=== PATIENT | female | born 1950 | race Caucasian/White ===

== ENCOUNTER 2023-10-31 11:32 | Outpatient (AMB) | payer MEDICARE, SELFPAY ==
--- NOTE | 2023-10-31 12:10 | MHC.OFFVISPS ---
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 feel the prozac 5 mg has helped; She reports no side effects. No falls, no gait imbalance. No dizziness. She is able to eat. Sleep is good. No SI or HI. she needs eye surgery which is scheduled for next week; she states she is anxious and nervous about it. She says she thinks she will feel better after it is done; No psychosis. no SI or HI. reports woorrry aviva day but has coping skills to manage. Past Psychiatric History: No IPLOC. anxiety started at age 3, always scared, constant worried thoughts, depression and anxiety for many years; her mother when she was 2 yo and pt had a difficult life with father and step mother intermittently being available- she and sister were frequently in foster care; pt has been in and out of treatment for years -outpatietn tx only . Subjective Subjective Subjective Medication Compliance: Yes Side effects from medications: No Review of Systems Medical Review of Systems: unchanged Review of Systems Review of Systems Yes all other systems are reviewed and are negative Eyes: Reports other (needs eye lid repair) Mental Status Exam Mental Status Exam Patient Appearance: Well Grooomed, Inappropriate and Appropriate Patient Orientation: Person, Place, Time and Situation Level of Consciousness: Awake, Appropriate and Alert Patient Behavior: Appropriate, Cooperative and Good Eye Contact Mood Description: Anxious and Sad Affect Description: Anxious and Sad Patient Cognition Impaired: No Ability to Follow Directions: Good Speech Pattern: Clear and Appropriate Memory Description: Intact Hallucinations: None Delusions: Not Present Thought Process: Intact and Goal Oriented Thought Content: positive for Intact and positive for Goal Oriented Judgement: Good Assessment and Plan Assessment & Plan (1) Major depression in partial remission: Status: Acute Code(s): F32.4 - Major depressive disorder, single episode, in partial remission (2) PTSD (post-traumatic stress disorder): Status: Acute Code(s): F43.10 - Post-traumatic stress disorder, unspecified Plan Continue current medications prozac 5 mg daily Valium to 10 mg TID and may take extra 1/2 tab daily PRN (dilantin reduces bioavailability of valium) remeron 15 mg at HS abilify 5mg in am for depression Consider increase in prozac in future Counseling and coordination of Care Pt. Self Management counseling: Light exposure, Sleep hygiene and General coping skills Medication management counseling: Effectiveness, Side effects, Dosing range, Duration, Drug interaction and Adherence Diagnosis and Prognosis Counseling: Accuracy of diagnosis, Prognosis over time, Impact of diagnosis on life functions, Impact of family relationship, Problematic behaviors secondary to diagnosis and Adequacy of current interventions Details: I spent 30 minutes reviewing the record, seeing the patient and documenting in the medical record. Counseling provided to the patient/caregiver as outlined below. Addressed patient/caregiver concerns regarding current medication regime including effective adherence. Addressed patient/caregiver concerns regarding diagnosis and prognosis including accuracy of diagnosis, prognosis over time, impact of diagnosis. Addressed patient/caregiver concerns regarding impact of recent stressors. PFSH Social History: lives with ; 2 adult daughters- estranged from one Substance History: none Trauma History: foster care as child- multiple homes Coding Level of Care Code Est Pt Level 4 (37607) Diagnoses Major depression in partial remission F32.4 PTSD (post-traumatic stress disorder) F43.10
[2023-10-31 12:11] VITALS: BP 140/72
== END 2023-10-31 12:12 | disposition home or self-care (01) ==
LOC: HO.HOP 11:33
PROVIDERS: PCP Internal Medicine; Visit Provider Clinical Nurse Specialist Psychiatric/Mental Health
DX: F32.4 Major depressive disorder, single episode, in partial remission (principal); F43.11 Post-traumatic stress disorder, acute
CPT/HCPCS: 99214

== ENCOUNTER → 2023-10-31 11:32 | Outpatient (BNVA) | payer MEDICARE, SELFPAY | PROVIDERS: PCP Internal Medicine; Visit Provider Clinical Nurse Specialist Psychiatric/Mental Health | DX: F32.4 Major depressive disorder, single episode, in partial remission (principal); F43.10 Post-traumatic stress disorder, unspecified | CPT/HCPCS: 99212 ==

== ENCOUNTER 2024-01-02 11:06 | Outpatient (AMB) | payer MEDICARE, SELFPAY ==
--- NOTE | 2024-01-02 11:11 | MHC.OFFVISPS ---
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: No Medication List - Last Reconciled 01/02/24 by Angie Neely APRN aripiprazole 5 mg PO DAILY carvedilol 12.5 mg PO BID clonidine HCl 0.1 mg PO BID clopidogrel 75 mg PO DAILY diazepam 10 mg PO TID PRN fluoxetine 5 mg (1/2 x 10 mg) PO DAILY 30 days mirtazapine 22.5 mg (1.5 x 15 mg) PO BEDTIME 30 days phenytoin sodium extended 100 mg PO TID simvastatin 20 mg PO BEDTIME tiotropium bromide (Spiriva with HandiHaler) 1 cap inhalation DAILY HPI- Psychiatric Chief Complaint: depression HPI Narrative: pt reports feeling depressed, low energy, fatigued, anxious and worried; she had cataract surgey 2 months ago and dshe is having trouble with blurry vision; she feels sad missing her sister who 2 years ago. she continues to go dancing 1 time a week and plays cards 2-3 times a week; she appears sedated and low energy; discussed stopping prozac and lowering abilify . she feels mirtazepine works well and there is room to increase if needed for mood. no SI and no HI Past Psychiatric History: No IPLOC. anxiety started at age 3, always scared, constant worried thoughts, depression and anxiety for many years; her mother when she was 2 yo and pt had a difficult life with father and step mother intermittently being available- she and sister were frequently in foster care; pt has been in and out of treatment for years -outpatietn tx only . Subjective Subjective Subjective Medication Compliance: Yes Side effects from medications: No Review of Systems Medical Review of Systems: unchanged Mental Status Exam Mental Status Exam Patient Appearance: Well Grooomed and Appropriate Patient Orientation: Person, Place, Time and Situation Level of Consciousness: Drowsy and Sedated Patient Behavior: Appropriate and Cooperative Mood Description: Sad Affect Description: Constricted and Flat Patient Cognition Impaired: No Ability to Follow Directions: Good Speech Pattern: Soft-Spoken and Delayed Memory Description: Intact Hallucinations: None Delusions: Not Present Thought Content: positive for Intact and positive for Goal Oriented Judgement: Fair Assessment and Plan Assessment & Plan (1) PTSD (post-traumatic stress disorder): Status: Acute Code(s): F43.10 - Post-traumatic stress disorder, unspecified (2) Major depression in partial remission: Status: Acute Code(s): F32.4 - Major depressive disorder, single episode, in partial remission Plan continue mirtazepine 22.5 mg daily at bedtime continue valium 10mg TID (bioavailability low due to dilantin) reduce abilify to 2.5mg daily stop prozac return in 4 weeks Medications: Changed From aripiprazole 5 mg PO DAILY 30 tabs 2RF To aripiprazole 2.5 mg (1/2 x 5 mg) PO DAILY 15 tabs 1RF Refilled aripiprazole 2.5 mg (1/2 x 5 mg) PO DAILY 15 tabs 1RF diazepam 10 mg PO TID PRN 90 tabs 2RF anxiety Discontinued fluoxetine Discontinued Reason: Doctor's Order 5 mg (1/2 x 10 mg) PO DAILY 30 days 15 tabs 2RF Counseling and coordination of Care Pt. Self Management counseling: Exercise, Maintenance-social rhythm, Sleep hygiene, Behavior activation, General coping skills and Greif counseling Details-Self Mgmt counseling: CBT and supportive psychotherapy to reduce distress, facilitate processing grief. Medication management counseling: Effectiveness, Side effects, Dosing range, Duration, Drug interaction and Adherence Diagnosis and Prognosis Counseling: Accuracy of diagnosis, Prognosis over time, Impact of diagnosis on life functions, Impact of family relationship, Problematic behaviors secondary to diagnosis and Adequacy of current interventions Details: I spent 30 minutes reviewing the record, seeing the patient and documenting in the medical record. Counseling provided to the patient/caregiver as outlined below. Addressed patient/caregiver concerns regarding current medication regime including effective adherence. Addressed patient/caregiver concerns regarding diagnosis and prognosis including accuracy of diagnosis, prognosis over time, impact of diagnosis. Addressed patient/caregiver concerns regarding impact of recent stressors. [facility] Social History: lives with ; 2 adult daughters- estranged from one Substance History: none Trauma History: foster care as child- multiple homes Coding Level of Care Code Est Pt Level 4 (68513) Therapy 30m w/E&M (70384) Diagnoses PTSD (post-traumatic stress disorder) F43.10 Major depression in partial remission F32.4 Comment CBT and supportive psychotherapy to reduce distress, facilitate grief.
== END 2024-01-02 11:43 | disposition home or self-care (01) ==
LOC: HO.HOP 11:06
PROVIDERS: PCP Internal Medicine; Visit Provider Clinical Nurse Specialist Psychiatric/Mental Health
DX: F43.10 Post-traumatic stress disorder, unspecified (principal); F32.4 Major depressive disorder, single episode, in partial remission
CPT/HCPCS: 90833; 99214

== ENCOUNTER → 2024-01-02 11:06 | Outpatient (BNVA) | payer MEDICARE, SELFPAY | PROVIDERS: PCP Internal Medicine; Visit Provider Clinical Nurse Specialist Psychiatric/Mental Health | DX: F43.10 Post-traumatic stress disorder, unspecified (principal); F32.4 Major depressive disorder, single episode, in partial remission; Z79.899 Other long term (current) drug therapy | CPT/HCPCS: 99212 ==

== ENCOUNTER 2024-01-30 11:40 | Outpatient (AMB) | payer MEDICARE, SELFPAY ==
--- NOTE | 2024-01-30 11:50 | MHC.OFFVISPS ---
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 she goes back to see surgeon at the end of the month. pt reports sleeping well; she feels better later in the day but feel the abilify might be making her feel worse in am. no SI or HI. Past Psychiatric History: No IPLOC. anxiety started at age 3, always scared, constant worried thoughts, depression and anxiety for many years; her mother when she was 2 yo and pt had a difficult life with father and step mother intermittently being available- she and sister were frequently in foster care; pt has been in and out of treatment for years -outpatietn tx only . Subjective Subjective Subjective Medication Compliance: Yes Side effects from medications: No Review of Systems Medical Review of Systems: unchanged Mental Status Exam Mental Status Exam Patient Appearance: Well Grooomed and Appropriate Patient Orientation: Person, Place, Time and Situation Level of Consciousness: Awake and Appropriate Patient Behavior: Appropriate and Cooperative Mood Description: Calm, Depressed and Sad Affect Description: Calm, Depressed, Flat and Sad Patient Cognition Impaired: No Ability to Follow Directions: Good Speech Pattern: Clear, Appropriate and Soft-Spoken Memory Description: Intact Hallucinations: None Delusions: Not Present Thought Process: Intact Thought Content: positive for Intact and positive for Goal Oriented Judgement: Good Assessment and Plan Assessment & Plan (1) PTSD (post-traumatic stress disorder): Status: Acute Code(s): F43.10 - Post-traumatic stress disorder, unspecified (2) Major depression in partial remission: Status: Acute Qualifiers: Major depression recurrence: recurrent Qualified Code(s): F33.41 - Major depressive disorder, recurrent, in partial remission Code(s): F32.4 - Major depressive disorder, single episode, in partial remission Plan stop aripirazole increase mirtazepine to 30mg daily continue diazepam 10mg tid Medications: New mirtazapine 30 mg PO BEDTIME 30 tabs 2RF Discontinued aripiprazole Discontinued Reason: Doctor's Order 2.5 mg (1/2 x 5 mg) PO DAILY 15 tabs 1RF mirtazapine Discontinued Reason: Doctor's Order 22.5 mg (1.5 x 15 mg) PO BEDTIME 45 tabs 2RF 30 days Counseling and coordination of Care Pt. Self Management counseling: Exercise, Maintenance-social rhythm, Sleep hygiene, General coping skills and Greif counseling Details-Self Mgmt counseling: pt continues to grieve sister who 2 yrs ago from covid Medication management counseling: Effectiveness, Side effects, Dosing range, Duration, Drug interaction and Adherence Diagnosis and Prognosis Counseling: Accuracy of diagnosis, Prognosis over time, Impact of diagnosis on life functions, Impact of family relationship, Problematic behaviors secondary to diagnosis and Adequacy of current interventions Details: I spent 30 minutes reviewing the record, seeing the patient and documenting in the medical record. Counseling provided to the patient/caregiver as outlined below. Addressed patient/caregiver concerns regarding current medication regime including effective adherence. Addressed patient/caregiver concerns regarding diagnosis and prognosis including accuracy of diagnosis, prognosis over time, impact of diagnosis. Addressed patient/caregiver concerns regarding impact of recent stressors. [facility] Social History: lives with ; 2 adult daughters- estranged from one Substance History: none Trauma History: foster care as child- multiple homes Coding Level of Care Code Est Pt Level 4 (35988) Diagnoses PTSD (post-traumatic stress disorder) F43.10 Recurrent major depressive disorder, in partial remission F33.41 Major depression recurrence: recurrent
== END 2024-01-30 12:13 | disposition home or self-care (01) ==
LOC: HO.HOP 11:40
PROVIDERS: PCP Internal Medicine; Visit Provider Clinical Nurse Specialist Psychiatric/Mental Health
DX: F43.10 Post-traumatic stress disorder, unspecified (principal); F33.41 Major depressive disorder, recurrent, in partial remission
CPT/HCPCS: 99214

== ENCOUNTER → 2024-01-30 11:40 | Outpatient (BNVA) | payer MEDICARE, SELFPAY | PROVIDERS: PCP Internal Medicine; Visit Provider Clinical Nurse Specialist Psychiatric/Mental Health | DX: F43.10 Post-traumatic stress disorder, unspecified (principal); F33.41 Major depressive disorder, recurrent, in partial remission | CPT/HCPCS: 99212 ==

== ENCOUNTER 2024-02-29 11:32 | Outpatient (AMB) | payer MEDICARE, SELFPAY ==
--- NOTE | 2024-02-29 11:53 | MHC.OFFVISPS ---
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 Allergies No Known Allergies Allergy (Verified 01/30/24 12:28) Medication List - Last Reconciled 02/29/24 by Angie Neely APRN carvedilol 12.5 mg PO BID cephalexin 500 mg PO QID clonidine HCl 0.1 mg PO BID clopidogrel 75 mg PO DAILY diazepam 10 mg PO TID PRN mirtazapine 30 mg PO BEDTIME neomycin-polymyxin B-dexameth 3.5mg/mL-10,000 unit/mL-0.1 % drps ophthalmic (eye) ondansetron mg PO phenytoin sodium extended 100 mg PO TID simvastatin 20 mg PO BEDTIME tiotropium bromide (Spiriva with HandiHaler) 1 cap inhalation DAILY HPI- Psychiatric Chief Complaint: depression HPI Narrative: pt in ED on Monday night due to constipation; had CT of abdomen which showed constipation; she also has uti; given mg citrate. and nows has diarrhea. she is on ceftin for uti. mood depressed. doesn't feel good on remeron 30mg - felt better on 22.5mg and the abilify. had trouble cutting the abilify in half. no SI or HI Has appt to see PCP tomorrow. Past Psychiatric History: No IPLOC. anxiety started at age 3, always scared, constant worried thoughts, depression and anxiety for many years; her mother when she was 2 yo and pt had a difficult life with father and step mother intermittently being available- she and sister were frequently in foster care; pt has been in and out of treatment for years -outpatietn tx only . Subjective Subjective Subjective Medication Compliance: Yes Side effects from medications: No Review of Systems Medical Review of Systems: unchanged Mental Status Exam Mental Status Exam Patient Appearance: Well Grooomed and Appropriate Patient Orientation: Person, Place, Time and Situation Level of Consciousness: Awake Patient Behavior: Appropriate Mood Description: Flat and Sad Affect Description: Flat and Sad Patient Cognition Impaired: No Ability to Follow Directions: Good Speech Pattern: Clear and Soft-Spoken Hallucinations: None Delusions: Not Present Thought Process: Intact Thought Content: positive for Intact Assessment and Plan Assessment & Plan (1) PTSD (post-traumatic stress disorder): Status: Acute Code(s): F43.10 - Post-traumatic stress disorder, unspecified (2) Major depression in partial remission: Status: Acute Qualifiers: Major depression recurrence: recurrent Qualified Code(s): F33.41 - Major depressive disorder, recurrent, in partial remission Code(s): F32.4 - Major depressive disorder, single episode, in partial remission Plan reduce the remeron to 22.5mg at bedtime restart abilify 2 mg daily continue diazepam consider probiotic daily while on antibiotic. Counseling and coordination of Care Pt. Self Management counseling: Sleep hygiene and General coping skills Medication management counseling: Effectiveness, Side effects, Dosing range, Duration, Drug interaction and Adherence Diagnosis and Prognosis Counseling: Accuracy of diagnosis and Adequacy of current interventions Details: I spent 30 minutes reviewing the record, seeing the patient and documenting in the medical record. Counseling provided to the patient/caregiver as outlined below. Addressed patient/caregiver concerns regarding current medication regime including effective adherence. Addressed patient/caregiver concerns regarding diagnosis and prognosis including accuracy of diagnosis, prognosis over time, impact of diagnosis. Addressed patient/caregiver concerns regarding impact of recent stressors. PFSH Social History: lives with ; 2 adult daughters- estranged from one Substance History: none Trauma History: foster care as child- multiple homes Coding Level of Care Code Est Pt Level 4 (21390) Diagnoses PTSD (post-traumatic stress disorder) F43.10 Recurrent major depressive disorder, in partial remission F33.41 Major depression recurrence: recurrent
== END 2024-02-29 11:55 | disposition home or self-care (01) ==
LOC: HO.HOP 11:32
PROVIDERS: PCP Internal Medicine; Visit Provider Clinical Nurse Specialist Psychiatric/Mental Health
DX: F43.10 Post-traumatic stress disorder, unspecified (principal); F33.41 Major depressive disorder, recurrent, in partial remission
CPT/HCPCS: 99214

== ENCOUNTER → 2024-02-29 11:32 | Outpatient (BNVA) | payer MEDICARE, SELFPAY | PROVIDERS: PCP Internal Medicine; Visit Provider Clinical Nurse Specialist Psychiatric/Mental Health | DX: F43.10 Post-traumatic stress disorder, unspecified (principal); F33.41 Major depressive disorder, recurrent, in partial remission | CPT/HCPCS: 99212 ==

== ENCOUNTER 2024-03-26 15:17 | Outpatient (AMB) | payer MEDICARE, SELFPAY ==
--- NOTE | 2024-03-26 15:37 | A.OFFPSYCH_ITS ---
Intake Intake Visit Reasons: depression Construction Director Required: No Allergies No Known Allergies Allergy (Verified 01/30/24 12:28) Medication List - Last Reconciled 03/26/24 by Angie Neely APRN aripiprazole (Abilify) 2 mg PO DAILY carvedilol 12.5 mg PO BID cephalexin 500 mg PO QID clonidine HCl 0.1 mg PO BID clopidogrel 75 mg PO DAILY diazepam 10 mg PO TID PRN mirtazapine 22.5 mg (1.5 x 15 mg) PO DAILY neomycin-polymyxin B-dexameth 3.5mg/mL-10,000 unit/mL-0.1 % drps ophthalmic (eye) ondansetron mg PO phenytoin sodium extended 100 mg PO TID simvastatin 20 mg PO BEDTIME tiotropium bromide (Spiriva with HandiHaler) 1 cap inhalation DAILY HPI- Psychiatric Chief Complaint: depression HPI Narrative: pt reports much improvement; mood is good; she is less anxious and less depressed; tolerating the remeron 22.5mg and abilify 2 mg daily without side effects; PHQ9=5 and GAD7 = 2. No SI or HI; enjoying activities more; happy; future oriented no SI or HI Past Psychiatric History: No IPLOC. anxiety started at age 3, always scared, constant worried thoughts, depression and anxiety for many years; her mother when she was 2 yo and pt had a difficult life with father and step mother intermittently being available- she and sister were frequently in foster care; pt has been in and out of treatment for years -outpatietn tx only . Subjective Subjective Subjective Medication Compliance: Yes Side effects from medications: No Review of Systems Medical Review of Systems: unchanged Mental Status Exam Mental Status Exam Patient Appearance: Well Grooomed and Appropriate Patient Orientation: Person, Place, Time and Situation Level of Consciousness: Awake and Appropriate Patient Behavior: Appropriate Mood Description: Happy Affect Description: Happy Ability to Follow Directions: Good Speech Pattern: Clear Memory Description: Intact Hallucinations: None Delusions: Not Present Thought Process: Intact Thought Content: positive for Intact Judgement: Good Assessment and Plan Assessment & Plan (1) PTSD (post-traumatic stress disorder): Status: Acute Code(s): F43.10 - Post-traumatic stress disorder, unspecified (2) Major depression in partial remission: Status: Acute Qualifiers: Major depression recurrence: recurrent Qualified Code(s): F33.41 - Major depressive disorder, recurrent, in partial remission Code(s): F32.4 - Major depressive disorder, single episode, in partial remission Plan continue current medications return in 3 months Medications: Refilled aripiprazole (Abilify) 2 mg PO DAILY 30 tabs 2RF mirtazapine 22.5 mg (1.5 x 15 mg) PO DAILY 45 tabs 2RF Counseling and coordination of Care Pt. Self Management counseling: Maintenance-social rhythm, Mod caffeine/ETOH intake and General coping skills Medication management counseling: Effectiveness, Side effects, Dosing range, Duration, Drug interaction and Adherence Diagnosis and Prognosis Counseling: Accuracy of diagnosis, Prognosis over time, Impact of diagnosis on life functions, Impact of family relationship and Adeq uacy of current interventions Details: I spent 25 minutes reviewing the record, seeing the patient and documenting in the medical record. Counseling provided to the patient/caregiver as outlined below. Addressed patient/caregiver concerns regarding current medication regime including effective adherence. Addressed patient/caregiver concerns regarding diagnosis and prognosis including accuracy of diagnosis, prognosis over time, impact of diagnosis. Addressed patient/caregiver concerns regarding impact of recent stressors. [facility] Social History: lives with ; 2 adult daughters- estranged from one Substance History: none Trauma History: foster care as child- multiple homes Coding Level of Care Code Est Pt Level 4 (99045) Diagnoses PTSD (post-traumatic stress disorder) F43.10 Recurrent major depressive disorder, in partial remission F33.41 Major depression recurrence: recurrent
== END 2024-03-26 15:45 | disposition home or self-care (01) ==
LOC: HO.HOP 15:17
PROVIDERS: PCP Internal Medicine; Visit Provider Clinical Nurse Specialist Psychiatric/Mental Health
DX: F43.10 Post-traumatic stress disorder, unspecified (principal); F33.41 Major depressive disorder, recurrent, in partial remission
CPT/HCPCS: 99214

== ENCOUNTER → 2024-03-26 15:17 | Outpatient (BNVA) | payer MEDICARE, SELFPAY | PROVIDERS: PCP Internal Medicine; Visit Provider Clinical Nurse Specialist Psychiatric/Mental Health | DX: F43.10 Post-traumatic stress disorder, unspecified (principal); F33.41 Major depressive disorder, recurrent, in partial remission | CPT/HCPCS: 99212 ==

== ENCOUNTER 2024-06-25 13:27 | Outpatient (AMB) | payer MEDICARE, SELFPAY ==
--- NOTE | 2024-06-25 13:03 | MHC.OFFVISPS ---
Intake Intake Visit Reasons: depression Allergies No Known Allergies Allergy (Verified 01/30/24 12:28) Medication List - Last Reconciled 06/25/24 by Angie Neely APRN aripiprazole (Abilify) 2 mg PO DAILY carvedilol 12.5 mg PO BID cephalexin 500 mg PO QID clonidine HCl 0.1 mg PO BID clopidogrel 75 mg PO DAILY diazepam 10 mg PO TID PRN mirtazapine 22.5 mg (1.5 x 15 mg) PO DAILY neomycin-polymyxin B-dexameth 3.5mg/mL-10,000 unit/mL-0.1 % drps ophthalmic (eye) ondansetron mg PO phenytoin sodium extended 100 mg PO TID simvastatin 20 mg PO BEDTIME tiotropium bromide (Spiriva with HandiHaler) 1 cap inhalation DAILY HPI- Psychiatric Chief Complaint: depression HPI Narrative: depression worsened; many stressors: rent going up 200+ dollars; pt on oxygen due to COPD and has a nodule on her lungs; pt very worried; easily tearful. anxious and feeling helpless and hopeless. she and are trying to access senior help but have been told long wait lists. Past Psychiatric History: No IPLOC. anxiety started at age 3, always scared, constant worried thoughts, depression and anxiety for many years; her mother when she was 2 yo and pt had a difficult life with father and step mother intermittently being available- she and sister were frequently in foster care; pt has been in and out of treatment for years -outpatietn tx only . Subjective Subjective Subjective Medication Compliance: Yes Side effects from medications: No Review of Systems Medical Review of Systems: unchanged Mental Status Exam Mental Status Exam Patient Orientation: Person, Place, Time and Situation Level of Consciousness: Awake Patient Behavior: Appropriate Mood Description: Anxious and Sad Patient Cognition Impaired: No Ability to Follow Directions: Good Speech Pattern: Clear and Perseverating Memory Description: Intact Hallucinations: None Delusions: Not Present Thought Process: Rumination Thought Content: positive for Preoccupation Judgement: Fair Telehealth Telehealth Telehealth Platform: Telephone Location of provider rendering services: practice address Location of patient: address on file Patient Identification confirmed using: Name, : Yes Telehealth method: voice only Patient verbally consented to treatment: Yes Patient verbally consented to billing insurance company: Yes Patient informed of any privacy concerns related to visit: Yes Minutes spent on Phone/Video with Pt.: 20 Assessment and Plan Assessment & Plan (1) PTSD (post-traumatic stress disorder): Status: Acute Code(s): F43.10 - Post-traumatic stress disorder, unspecified (2) Major depressive disorder, recurrent episode, moderate with anxious distress: Status: Acute Code(s): F33.1 - Major depressive disorder, recurrent, moderate Plan increase abilify from 2 mg to 5 mg for depression and ruminating Medications: New aripiprazole (Abilify) 5 mg PO DAILY 90 tabs 1RF Counseling and coordination of Care Pt. Self Management counseling: Maintenance-social rhythm, Mod caffeine/ETOH intake, Sleep hygiene, Behavior activation, General coping skills and Problem solving Medication management counseling: Effectiveness, Side effects, Dosing range, Duration, Drug interaction and Adherence Diagnosis and Prognosis Counseling: Accuracy of diagnosis, Prognosis over time, Impact of diagnosis on life functions, Impact of family relationship, Problematic behaviors secondary to diagnosis and Adequacy of current interventions Details: I spent 25 minutes reviewing the record, seeing the patient and documenting in the medical record. Counseling provided to the patient/caregiver as outlined below. Addressed patient/caregiver concerns regarding current medication regime including effective adherence. Addressed patient/caregiver concerns regarding diagnosis and prognosis including accuracy of diagnosis, prognosis over time, impact of diagnosis. Addressed patient/caregiver concerns regarding impact of recent stressors. PFSH Social History: lives with ; 2 adult daughters- estranged from one Substance History: none Trauma History: foster care as child- multiple homes Coding Level of Care Code Tele Est Pt Level 4 (89395) Diagnoses PTSD (post-traumatic stress disorder) F43.10 Major depressive disorder, recurrent episode, moderate with anxious distress F33.1
== END 2024-06-25 13:28 | disposition home or self-care (01) ==
LOC: HO.HOP 13:27
PROVIDERS: PCP Internal Medicine; Visit Provider Clinical Nurse Specialist Psychiatric/Mental Health
DX: F33.1 Major depressive disorder, recurrent, moderate (principal); F43.11 Post-traumatic stress disorder, acute
CPT/HCPCS: 98967

== ENCOUNTER 2024-07-11 11:13 | Outpatient (AMB) | payer MEDICARE, SELFPAY ==
--- NOTE | 2024-07-11 10:38 | A.OFFPSYCH_ITS ---
Intake Intake Visit Reasons: depression Science [employer] Display Builder Required: No Allergies No Known Allergies Allergy (Verified 01/30/24 12:28) Medication List - Last Reconciled 07/11/24 by Angie Neely APRN aripiprazole (Abilify) 5 mg PO DAILY carvedilol 12.5 mg PO BID clonidine HCl 0.1 mg PO BID clopidogrel 75 mg PO DAILY diazepam 10 mg PO TID PRN mirtazapine 22.5 mg (1.5 x 15 mg) PO DAILY neomycin-polymyxin B-dexameth 3.5mg/mL-10,000 unit/mL-0.1 % drps ophthalmic (eye) ondansetron mg PO phenytoin sodium extended 100 mg PO TID simvastatin 20 mg PO BEDTIME tiotropium bromide (Spiriva with HandiHaler) 1 cap inhalation DAILY HPI- Psychiatric Chief Complaint: depression HPI Narrative: pt struggling with anxiety and depression; she is struggling with medical issues. she is fearful; she can't dance right now and that is one of her coping skills. no SI or HI. she is playing cards with and friends 3 times a week; she is able to enjoy this. she is lonely; she is frustrated with medical issues. Past Psychiatric History: No IPLOC. anxiety started at age 3, always scared, constant worried thoughts, depression and anxiety for many years; her mother when she was 2 yo and pt had a difficult life with father and step mother intermittently being available- she and sister were frequently in foster care; pt has been in and out of treatment for years -outpatietn tx only . Subjective Subjective Subjective Medication Compliance: Yes Side effects from medications: No Review of Systems Medical Review of Systems: unchanged Mental Status Exam Mental Status Exam Patient Orientation: Person, Place, Time and Situation Level of Consciousness: Appropriate Patient Behavior: Appropriate, Anxious and Crying Mood Description: Anxious and Sad Affect Description: Anxious and Sad Patient Cognition Impaired: No Ability to Follow Directions: Good Speech Pattern: Clear Memory Description: Intact Hallucinations: None Delusions: Not Present Thought Process: Rumination Thought Content: positive for Preoccupation Judgement: Fair Telehealth Telehealth Telehealth Platform: Telephone Location of provider rendering services: practice address Location of patient: address on file Patient Identification confirmed using: Name, : No Telehealth method: voice only Patient verbally consented to treatment: Yes Patient verbally consented to billing insurance company: Yes Patient informed of any privacy concerns related to visit: Yes Minutes spent on Phone/Video with Pt.: 30 Assessment and Plan Assessment & Plan (1) Major depressive disorder, recurrent episode, moderate with anxious distress: Status: Acute Code(s): F33.1 - Major depressive disorder, recurrent, moderate (2) PTSD (post-traumatic stress disorder): Status: Acute Code(s): F43.10 - Post-traumatic stress disorder, unspecified Plan continue medications add trintellix 5mg daily Counseling and coordination of Care Medication management counseling: Effectiveness, Side effects, Dosing range, Duration, Drug interaction and Adherence Diagnosis and Prognosis Counseling: Accuracy of diagnosis, Prognosis over time, Impact of diagnosis on life functions, Impact of family relationship, Problematic behaviors secondary to diagnosis and Adequacy of current interventions Details: I spent [] minutes reviewing the record, seeing the patient and documenting in the medical record. Counseling provided to the patient/caregiver as outlined below. Addressed patient/caregiver concerns regarding current medication regime including effective adherence. Addressed patient/caregiver concerns regarding diagnosis and prognosis including accuracy of diagnosis, prognosis over time, impact of diagnosis. Addressed patient/caregiver concerns regarding impact of recent stressors. PFSH Social History: lives with ; 2 adult daughters- estranged from one Substance History: none Trauma History: foster care as child- multiple homes Coding Level of Care Code Tele Est Pt Level 4 (60590) Diagnoses Major depressive disorder, recurrent episode, moderate with anxious distress F33.1 PTSD (post-traumatic stress disorder) F43.10
== END 2024-07-11 11:14 | disposition home or self-care (01) ==
LOC: HO.HOP 11:13
PROVIDERS: PCP Internal Medicine; Visit Provider Clinical Nurse Specialist Psychiatric/Mental Health
DX: F33.1 Major depressive disorder, recurrent, moderate (principal); F43.11 Post-traumatic stress disorder, acute
CPT/HCPCS: 99214

== ENCOUNTER → 2024-07-11 11:13 | Outpatient (BNVA) | payer MEDICARE, SELFPAY | PROVIDERS: PCP Internal Medicine; Visit Provider Clinical Nurse Specialist Psychiatric/Mental Health | DX: F43.10 Post-traumatic stress disorder, unspecified (principal); F33.1 Major depressive disorder, recurrent, moderate ==

== ENCOUNTER 2024-07-26 11:42 | Outpatient (AMB) | payer MEDICARE, SELFPAY ==
--- NOTE | 2024-07-26 10:49 | MHC.OFFVISPS ---
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: No Allergies No Known Allergies Allergy (Verified 01/30/24 12:28) Medication List - Last Reconciled 07/26/24 by Angie Neely APRN aripiprazole (Abilify) 5 mg PO DAILY carvedilol 12.5 mg PO BID clonidine HCl 0.1 mg PO BID clopidogrel 75 mg PO DAILY diazepam 10 mg PO TID PRN mirtazapine 22.5 mg (1.5 x 15 mg) PO DAILY neomycin-polymyxin B-dexameth 3.5mg/mL-10,000 unit/mL-0.1 % drps ophthalmic (eye) ondansetron mg PO phenytoin sodium extended 100 mg PO TID simvastatin 20 mg PO BEDTIME tiotropium bromide (Spiriva with HandiHaler) 1 cap inhalation DAILY HPI- Psychiatric Chief Complaint: depression HPI Narrative: pt depressed and anxious; pt feels abilify not helping her depression; she does not want to stop it because it helps worry and anxiety. pt playing cards 3 times a week. not able go back to dancing yet due to o2 tank too heavy; she had breathing test done but results pending; discussed trintellix response in past. pt agree dto retrial of trintellix Past Psychiatric History: No IPLOC. anxiety started at age 3, always scared, constant worried thoughts, depression and anxiety for many years; her mother when she was 2 yo and pt had a difficult life with father and step mother intermittently being available- she and sister were frequently in foster care; pt has been in and out of treatment for years -outpatietn tx only . Subjective Subjective Subjective Medication Compliance: Yes Side effects from medications: No Review of Systems Medical Review of Systems: unchanged Mental Status Exam Mental Status Exam Patient Appearance: Well Grooomed and Appropriate Patient Orientation: Person, Place, Time and Situation Level of Consciousness: Awake, Appropriate and Alert Patient Behavior: Appropriate and Cooperative Mood Description: Calm and Appropriate Affect Description: Calm and Appropriate Patient Cognition Impaired: No Ability to Follow Directions: Good Speech Pattern: Clear and Appropriate Memory Description: Intact Hallucinations: None Delusions: Not Present Thought Process: Intact Thought Content: positive for Intact and positive for Goal Oriented Judgement: Good Telehealth Telehealth Telehealth Platform: Telephone Location of provider rendering services: practice address Location of patient: address on file Patient Identification confirmed using: Name, : Yes Telehealth method: voice only Patient verbally consented to treatment: Yes Patient verbally consented to billing insurance company: Yes Patient informed of any privacy concerns related to visit: Yes Minutes spent on Phone/Video with Pt.: 30 Assessment and Plan Assessment & Plan (1) Major depressive disorder, recurrent episode, moderate with anxious distress: Status: Acute Code(s): F33.1 - Major depressive disorder, recurrent, moderate (2) PTSD (post-traumatic stress disorder): Status: Acute Code(s): F43.10 - Post-traumatic stress disorder, unspecified Plan add trintellix 5mg daily continue remeron continue abilify Medications: New vortioxetine (Trintellix) 5 mg PO DAILY 30 tabs 2RF Counseling and coordination of Care Pt. Self Management counseling: Maintenance-social rhythm and General coping skills Medication management counseling: Effectiveness, Side effects, Dosing range, Duration, Drug interaction and Adherence Diagnosis and Prognosis Counseling: Accuracy of diagnosis, Prognosis over time, Impact of diagnosis on life functions, Impact of family relationship, Problematic behaviors secondary to diagnosis and Adequacy of current interventions Details: I spent 35 minutes reviewing the record, seeing the patient and documenting in the medical record. Counseling provided to the patient/caregiver as outlined below. Addressed patient/caregiver concerns regarding current medication regime including effective adherence. Addressed patient/caregiver concerns regarding diagnosis and prognosis including accuracy of diagnosis, prognosis over time, impact of diagnosis. Addressed patient/caregiver concerns regarding impact of recent stressors. PFSH Social History: lives with ; 2 adult daughters- estranged from one Substance History: none Trauma History: foster care as child- multiple homes Coding Level of Care Code Tele Est Pt Level 4 (07834) Diagnoses Major depressive disorder, recurrent episode, moderate with anxious distress F33.1 PTSD (post-traumatic stress disorder) F43.10
--- OUTSIDE RECORDS SUMMARY | 2024-07-31 08:02 | XMS_ITS ---
Author Name [facility] Organization Unknown History of Medication Use Medication Directions Dispensed Refills Start Date End Date Stat us ARIPiprazole (ABILIFY) 5 MG tablet Take 5 mg by mouth every morning. 03/02/2023 active diazepam (VALIUM) 10 MG tablet TAKE ONE TABLET BY MOUTH THREE TIMES DAILY NEEDED FOR ANXIETY OR PANIC 03/02/2023 active ipratropium-albute rol (DUONEB) 0.5-2.5 mg/3 mL nebulizer solution 3 mL 3 mL, Nebulization, Once, On Mon02/28/23 at 1600, For 1 doseAlbuterol expressed in base strength. Albuterol sulfate 3 mg = albuterol (base) 2.5 mg. 03/02/2023 completed albuterol (ProAir HFA) 108 (90 Base) MCG/ACT inhaler Inhale 2 puffs. 03/02/2023 acti ve Spiriva HandiHaler 18 MCG inhalation capsule USE 1 CAPSULE FOR INHALATION ONCE A DAY DO NOT SWALLOW CAPSULE 03/02/2023 active levoFLOXacin (LEVAQUIN) 750 MG tablet Take 1 tablet (750 mg total) by mouth daily. 03/02/2023 active predniSONE (DELTASONE) 20 MG tablet Take 2 tablets (40 mg total) by mouth daily. 03/02/2023 active simvastatin (ZOCOR) 20 MG tablet Take 20 mg by mouth nightly. 03/02/2023 active carvedilol (COREG) 12.5 MG tablet Take 12.5 mg by mouth 2 (two) times a day with meals. 03/02/2023 active clopidogrel (PLAVIX) 75 MG tablet Take 75 mg by mouth daily. 03/02/2023 active cloNIDine (CATAPRES) 0.1 MG tablet Take 0.1 mg by mouth 2 (two) times a day. 03/02/2023 active Problems Problem Status Onset Date Problem Type Date of Resoluti on Source COPD with acute exacerbation active 2023-02-28 [facility]
== END 2024-07-26 11:43 | disposition home or self-care (01) ==
LOC: HO.HOP 11:42
PROVIDERS: PCP Internal Medicine; Visit Provider Clinical Nurse Specialist Psychiatric/Mental Health
DX: F33.1 Major depressive disorder, recurrent, moderate (principal); F43.11 Post-traumatic stress disorder, acute
CPT/HCPCS: 99214

== ENCOUNTER 2024-08-16 12:17 | Outpatient (AMB) | payer MEDICARE, SELFPAY ==
--- NOTE | 2024-08-16 12:14 | MHC.OFFVISPS ---
Intake Intake Visit Reasons: depression Resident Director Required: No Allergies No Known Allergies Allergy (Verified 01/30/24 12:28) Medication List - Last Reconciled 08/16/24 by Angie Neely APRN aripiprazole (Abilify) 5 mg PO DAILY carvedilol 12.5 mg PO BID clonidine HCl 0.1 mg PO BID clopidogrel 75 mg PO DAILY diazepam 10 mg PO TID PRN mirtazapine 22.5 mg (1.5 x 15 mg) PO DAILY neomycin-polymyxin B-dexameth 3.5mg/mL-10,000 unit/mL-0.1 % drps ophthalmic (eye) ondansetron mg PO phenytoin sodium extended 100 mg PO TID simvastatin 20 mg PO BEDTIME tiotropium bromide (Spiriva with HandiHaler) 1 cap inhalation DAILY vortioxetine (Trintellix) 5 mg PO DAILY HPI- Psychiatric Chief Complaint: depression HPI Narrative: pt reports some improvement. she is still very sad as this is the anniversary od her sister's ;; she was very close to her sister and saw her almost every day until she ; pt reports she is staying busy and spending time with others to cope; her breathing is improving. sleep and appetite intact no SI or HI. Past Psychiatric History: No IPLOC. anxiety started at age 3, always scared, constant worried thoughts, depression and anxiety for many years; her mother when she was 2 yo and pt had a difficult life with father and step mother intermittently being available- she and sister were frequently in foster care; pt has been in and out of treatment for years -outpatietn tx only . Subjective Subjective Subjective Medication Compliance: Yes Side effects from medications: No Review of Systems Medical Review of Systems: unchanged Mental Status Exam Mental Status Exam Patient Orientation: Person, Place, Time and Situation Level of Consciousness: Awake and Appropriate Patient Behavior: Appropriate and Talkative Mood Description: Sad Patient Cognition Impaired: No Ability to Follow Directions: Good Speech Pattern: Clear, Appropriate and Coherent Memory Description: Intact Hallucinations: None Delusions: Not Present Thought Process: Intact and Goal Oriented Thought Content: positive for Intact and positive for Goal Oriented Judgement: Good Telehealth Telehealth Telehealth Platform: Telephone Location of provider rendering services: practice address Location of patient: address on file Patient Identification confirmed using: Name, : Yes Telehealth method: voice only Patient verbally consented to treatment: Yes Patient verbally consented to billing insurance company: Yes Patient informed of any privacy concerns related to visit: Yes Minutes spent on Phone/Video with Pt.: 20 Assessment and Plan Assessment & Plan (1) Major depressive disorder, recurrent episode, moderate with anxious distress: Status: Acute Code(s): F33.1 - Major depressive disorder, recurrent, moderate (2) PTSD (post-traumatic stress disorder): Status: Acute Code(s): F43.10 - Post-traumatic stress disorder, unspecified Plan continue medications as per below no changes retrun in 4-6 weeks Medications: Refilled aripiprazole (Abilify) 5 mg PO DAILY 90 tabs 1RF diazepam 10 mg PO TID PRN 90 tabs 2RF anxiety mirtazapine 22.5 mg (1.5 x 15 mg) PO DAILY 45 tabs 2RF vortioxetine (Trintellix) 5 mg PO DAILY 30 tabs 2RF Counseling and coordination of Care Pt. Self Management counseling: Maintenance-social rhythm, Mod caffeine/ETOH intake, Sleep hygiene, Behavior activation, Greif counseling and Problem solving Medication management counseling: Effectiveness, Side effects, Dosing range, Duration, Drug interaction and Adherence Diagnosis and Prognosis Counseling: Accuracy of diagnosis, Prognosis over time, Impact of diagnosis on life functions and Adequacy of current interventions Details: I spent 30 minutes reviewing the record, seeing the patient and documenting in the medical record. Counseling provided to the patient/caregiver as outlined below. Addressed patient/caregiver concerns regarding current medication regime including effective adherence. Addressed patient/caregiver concerns regarding diagnosis and prognosis including accuracy of diagnosis, prognosis over time, impact of diagnosis. Addressed patient/caregiver concerns regarding impact of recent stressors. PFSH Social History: lives with ; 2 adult daughters- estranged from one Substance History: none Trauma History: foster care as child- multiple homes Coding Level of Care Code Tele Est Pt Level 4 (79297) Diagnoses Major depressive disorder, recurrent episode, moderate with anxious distress F33.1 PTSD (post-traumatic stress disorder) F43.10
== END 2024-08-16 12:48 | disposition home or self-care (01) ==
LOC: HO.HOP 12:17
PROVIDERS: PCP Internal Medicine; Visit Provider Clinical Nurse Specialist Psychiatric/Mental Health
DX: F33.1 Major depressive disorder, recurrent, moderate (principal); F43.11 Post-traumatic stress disorder, acute
CPT/HCPCS: 99214

== ENCOUNTER → 2024-08-16 12:17 | Outpatient (BNVA) | payer MEDICARE, SELFPAY | PROVIDERS: PCP Internal Medicine; Visit Provider Clinical Nurse Specialist Psychiatric/Mental Health | DX: F43.10 Post-traumatic stress disorder, unspecified (principal); F33.1 Major depressive disorder, recurrent, moderate ==

== ENCOUNTER 2024-10-15 15:24 | Outpatient (AMB) | payer MEDICARE, SELFPAY ==
--- NOTE | 2024-10-15 15:05 | A.OFFPSYCH_ITS ---
Intake Intake Visit Reasons: depression Educational Administration Teacher Required: No Allergies No Known Allergies Allergy (Verified 01/30/24 12:28) Medication List - Last Reconciled 10/15/24 by Angie Neely APRN aripiprazole (Abilify) 5 mg PO DAILY carvedilol 12.5 mg PO BID clonidine HCl 0.1 mg PO BID clopidogrel 75 mg PO DAILY diazepam 10 mg PO TID PRN mirtazapine 22.5 mg (1.5 x 15 mg) PO DAILY neomycin-polymyxin B-dexameth 3.5mg/mL-10,000 unit/mL-0.1 % drps ophthalmic (eye) ondansetron mg PO phenytoin sodium extended 100 mg PO TID simvastatin 20 mg PO BEDTIME tiotropium bromide (Spiriva with HandiHaler) 1 cap inhalation DAILY vortioxetine (Trintellix) 5 mg PO DAILY HPI- Psychiatric Chief Complaint: depression HPI Narrative: pt learned she has lung cancer; she is very anxious. she is scared of future; has good support from ; plays cards with peers 3 times a week; eating well; sleeping well; younger daughter very supportive; she misses her older daughter who is not in contact with her right now- pt has reached and is hoping to talk with her soon. no SI or HI. Past Psychiatric History: No IPLOC. anxiety started at age 3, always scared, constant worried thoughts, depression and anxiety for many years; her mother when she was 2 yo and pt had a difficult life with father and step mother intermittently being available- she and sister were frequently in foster care; pt has been in and out of treatment for years -outpatietn tx only . Subjective Subjective Subjective Medication Compliance: Yes Side effects from medications: No Review of Systems Medical Review of Systems: unchanged Mental Status Exam Mental Status Exam Patient Appearance: Well Grooomed and Appropriate Patient Orientation: Person, Place, Time and Situation Level of Consciousness: Awake, Appropriate and Alert Patient Behavior: Appropriate and Cooperative Mood Description: Anxious Affect Description: Anxious Patient Cognition Impaired: No Ability to Follow Directions: Good Speech Pattern: Clear and Appropriate Memory Description: Intact Hallucinations: None Delusions: Not Present Thought Process: Intact and Goal Oriented Thought Content: positive for Intact and positive for Goal Oriented Judgement: Fair Telehealth Telehealth Telehealth Platform: Telephone Location of provider rendering services: practice address Location of patient: address on file Patient Identification confirmed using: Name, : Yes Telehealth method: voice only Patient verbally consented to treatment: Yes Patient verbally consented to billing insurance company: Yes Patient informed of any privacy concerns related to visit: Yes Minutes spent on Phone/Video with Pt.: 30 Assessment and Plan Assessment & Plan (1) Major depressive disorder, recurrent episode, moderate with anxious distress: Status: Acute Code(s): F33.1 - Major depressive disorder, recurrent, moderate (2) PTSD (post-traumatic stress disorder): Status: Acute Code(s): F43.10 - Post-traumatic stress disorder, unspecified Plan renew meds return in 1 month Medications: Refilled mirtazapine 22.5 mg (1.5 x 15 mg) PO DAILY 45 tabs 2RF vortioxetine (Trintellix) 5 mg PO DAILY 30 tabs 2RF aripiprazole (Abilify) 5 mg PO DAILY 90 tabs 1RF diazepam 10 mg PO TID PRN 90 tabs 2RF anxiety Counseling and coordination of Care Pt. Self Management counseling: Maintenance-social rhythm, Sleep hygiene, General coping skills and Problem solving Medication management counseling: Effectiveness, Side effects, Dosing range, Duration, Drug interaction and Adherence Diagnosis and Prognosis Counseling: Accuracy of diagnosis, Prognosis over time, Impact of diagnosis on life functions, Impact of family relationship, Problematic behaviors secondary to diagnosis and Adequacy of current interventions Details: I spent 35 minutes reviewing the record, seeing the patient and documenting in the medical record. Counseling provided to the patient/caregiver as outlined below. Addressed patient/caregiver concerns regarding current medication regime including effective adherence. Addressed patient/caregiver concerns regarding diagnosis and prognosis including accuracy of diagnosis, prognosis over time, impact of diagnosis. Addressed patient/caregiver concerns regarding impact of recent stressors. [facility] Social History: lives with ; 2 adult daughters- estranged from one Substance History: none Trauma History: foster care as child- multiple homes Coding Level of Care Code Tele Est Pt Level 4 (99221) Diagnoses Major depressive disorder, recurrent episode, moderate with anxious distress F33.1 PTSD (post-traumatic stress disorder) F43.10
--- OUTSIDE RECORDS SUMMARY | 2024-10-15 19:10 | XMS_ITS | Encounter Summary ---
Author Organization [facility] Address [address] [place] [address] Care Team Providers Care Wind Tunnel Engineer Name Role Phone Will Monroe MD Primary Care Provider [phone] Reason for Referral * Imaging (Routine) - Pending Review Specialty Diagnoses / Procedures Referred By Contac t Referred To Contact Radiology Diagnoses Pulmonary nodule Hilar lymphadenopathy Procedures MR Brain wo and w Contrast Tunde Trejo MD [address] [address] Phone: tel: fax: [address] [address] Phone: tel: Referral ID Status Reason Start Date Expiration Date V isits Requested Visits Authorized [id number] Pending Review 10/07/2024 10/07/2025 1 1 Reason for Visit * Imaging (Routine) - Pending Review Specialty Diagnoses / Procedures Referred By Contac t Referred To Contact Radiology Diagnoses Pulmonary nodule Hilar lymphadenopathy Procedures MR Brain wo and w Contrast Tunde Trejo MD [address] [address] Phone: tel: fax: [address] [address] Phone: tel: Referral ID Status Reason Start Date Expiration Date V isits Requested Visits Authorized [id number] Pending Review 10/07/2024 10/07/2025 1 1 Encounter Details Date Type Department Care Team (Latest Contact Info) Description 10/11/2024 10:57 AM EST - 10/11/2024 11:59 PM EST Hospital Encounter [facility] MRI [address] [place] [address] Pulmonary nodule; Hilar lymphadenopathy Discharge Disposition: Home or Self Care Social History Tobacco Use Types Packs/Day Years Used Date Smoking Tobacco: Former Smokeless Tobacco: Never Alcohol Use Standard Drinks/Week Comments No 0 (1 standard drink = 0.6 oz pur e alcohol) Comments Unknown Sex and Gender Information Value Date Recorded Sex Assigned at Not on file Legal Sex Female 1:52 AM EST Gender Identity Not on file Sexual Orientation Not on file documented as of this encounter Medications at Time of Discharge adalimumab (Humira,CF, Pen) 40 mg/0.4 mL pen Inject 40 mg into the skin every 14 days for 28 days. 1 albuterol 2.5 mg /3 mL (0.083 %) nebulizer solution Take 1 Vial by nebulization every 6 hours as needed for Wheezing or Shortness of Breath for up to 180 days. 1 albuterol HFA (PROAIR HFA ; PROVENTIL HFA ; VENTOLIN HFA) 90 mcg/actuation inhaler Inhale 2 Puffs into the lungs every 4 hours as needed for Cough or Wheezing. 3 ARIPiprazole (ABILIFY) 2 mg tablet Take 5 mg by mouth daily. carvediloL (COREG) 12.5 mg tablet Take 1 Tablet by mouth 2 times daily. 4 cloNIDine (CATAPRES) 0.1 mg tablet Take 1 Tablet by mouth 2 times daily. 4 clopidogreL (PLAVIX) 75 mg tablet TAKE ONE TABLET DAILY 90 tablet 1 5 cycloSPORINE (Restasis MultiDose) 0.05 % drops PLACE ONE DROP IN EACH EYE TWICE DAILY 4 diazePAM (VALIUM) 10 mg tablet Take 1 Tablet by mouth every 8 hours as needed for Anxiety. 3 diclofenac (VOLTAREN) 1 % topical gel Apply 4 g topically 4 times daily. 10/22/202 4 docusate sodium (COLACE) 100 mg capsule Take 1 Cap by mouth 2 times daily for 30 days. 8 fluticasone propionate (FLONASE) 50 mcg/actuation nasal sprayIndications:No n-seasonal allergic rhinitis due to other allergic trigger Administer 2 sprays into each nostril 1 (one) time each day. Shake gently. Before first use, prime pump. After use, clean tip and replace cap. 16 g 2 5 12/24/19 25 fluticasone-salmete rol (ADVAIR DISKUS) 250-50 mcg/dose diskus inhalerIndications: Pulmonary emphysema, unspecified emphysema type (CMS/HCC) Inhale 1 puff by mouth 2 (two) times a day. Inhale 1 Puff into the lungs 2 times daily. 3 each 3 5 mirtazapine (REMERON) 30 mg tablet TAKE ONE TABLET EVERY NIGHT AT BEDTIME 4 ondansetron ODT (ZOFRAN-ODT) 4 mg disintegrating tablet Take 1 Tablet by mouth every 8 hours as needed for Nausea. 4 phenytoin (DILANTIN) 100 mg ER capsuleIndications: Seizure disorder (CMS/HCC) Take 1 capsule (100 mg total) by mouth 2 (two) times a day. 270 capsule 5 simvastatin (ZOCOR) 20 mg tablet Take 1 tablet (20 mg total) by mouth at bedtime. at bedtime. 90 tablet 1 5 sodium chloride-aloe vera (Saline Nasal, aloe vera,) gel topical gelIndications:Non- seasonal allergic rhinitis due to other allergic trigger Apply 1 Application to affected nostril(s) if needed (nasal dryness). 14.1 g 3 5 tiotropium (Spiriva with HandiHaler) 18 mcg per inhalation capsuleIndications: Pulmonary emphysema, unspecified emphysema type (CMS/HCC) Place 1 capsule (18 mcg total) into inhaler and inhale 1 (one) time each day. 3 each 3 5 Trintellix 5 mg tablet Take 1 tablet (5 mg total) by mouth 1 (one) time each day. 01/03/202 5 documented as of this encounter Discharge Disposition Disposition Code Departure Means Destination Home or Self Care documented in this encounter Plan of Treatment Upcoming Encounters Date Type Department Care Team (Late st Contact Info) Description 10/21/2024 1:30 PM EST Appointment [facility] CT Scan [address] [place] [phone] 10/25/2024 3:30 PM EST Consult Pulmonology - [place] 299 [facility] [address] [place] [address] Laura Avalos MD [address] [place] [address] 11/27/2024 11:30 AM EDT Office Visit Pulmonolgy - [place] 175 [facility] [address] [place] [phone] Jelena Hoff NP 175 [facility] [address] [place] [address] 01/07/2025 1:15 PM EDT Office Visit Adult Medicine [facility] [address] [place] [phone] Will Monroe MD [address] [place] [address] 03/11/2025 11:00 AM EDT Appointment [facility] Ultrasound [address] [place] [phone] 03/26/2025 11:00 AM EDT Office Visit Vascular Surgery - [place] 300 [facility] [address] [place] [phone] Krupa Garcia MD 300 [facility] [address] [place] [address] documented as of this encounter Procedures Procedure Name Priority Date/Time Associated Diagnosis Comments MR BRAIN WO AND W CONTRAST Routine 10/11/2024 1:29 PM EST Pulmonary nodule Hilar lymphadenopathy documented in this encounter Results * MR Brain wo and w Contrast (10/11/2024 1:29 PM EST) Anatomical Region Laterality Modality Head and Neck Magnetic Resonan ce 10/11/2024 1:11 PM EST Impressions 10/11/2024 1:31 PM EST No acute findings or intracranial metastatic disease. 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 Abnormal left internal carotid artery flow void may be due to slow flow or occlusion. ??Prior ultrasound demonstrated high-grade left proximal cervical internal carotid artery stenosis. ??CTA of the head and neck could evaluate further. -------- FINAL REPORT -------- Dictated By: SHAUN MILES Dictated Date: 10/11/2024 13:11 ET Assigned Physician: SHAUN MILES Reviewed and Electronically Signed By: SHAUN MILES Signed Date: 10/11/2024 13:31 ET Workstation ID: [id number] Transcribed By: Self Edit Transcribed Date: 10/11/2024 13:11 ET Narrative 10/11/2024 1:31 PM EST PROCEDURE: Brain MRI INDICATION: Lung cancer staging TECHNIQUE: Multiplanar, multisequence MRI of the brain without and with contrast. ??15 mL Dotarem injected intravenously from a 15 mL vial with the remainder discarded. COMPARISON: ??Ultrasound 02/02/2024. FINDINGS: No acute infarct, mass effect, or intracranial hemorrhage. Mild chronic small vessel ischemic change seen throughout the supratentorial and pontine white matter. ??No abnormal intracranial susceptibility artifact or enhancement. Mild diffuse cerebral volume loss with prominence of ventricles and sulci. ??No hydrocephalus. Small old infarcts seen in the left perirolandic region at the vertex. Abnormal left high cervical and intracranial internal carotid artery flow void which may be due to slow flow or occlusion. ??Remainder of the intracranial arterial flow voids are normal. Major dural venous sinuses enhance normally with contrast. Scattered mucosal thickening seen throughout the sinuses.. ??Trace bilateral mastoid fluid. ??Bilateral lens implants. ??Orbits and extracranial soft tissues are otherwise normal. ??No suspicious marrow replacing lesions throughout the calvarium or clivus. Procedure Note Shaun Miles MD - 10/11/2024 PROCEDURE: Brain MRI INDICATION: Lung cancer staging TECHNIQUE: Multiplanar, multisequence MRI of the brain without and withcontrast. 15 mL Dotarem injected intravenously from a 15 mL vial with theremainder discarded. COMPARISON: Ultrasound 02/02/2024. FINDINGS: No acute infarct, mass effect, or intracranial hemorrhage. Mild chronic small vessel ischemic change seen throughout thesupratentorial and pontine white matter. No abnormal intracranialsusceptibility artifact or enhancement. Mild diffuse cerebral volume loss with prominence of ventricles and sulci.No hydrocephalus. Small old infarcts seen in the left perirolandic region at the vertex. Abnormal left high cervical and intracranial internal carotid artery flowvoid which may be due to slow flow or occlusion. Remainder of theintracranial arterial flow voids are normal. Major dural venous sinuses enhance normally with contrast. Scattered mucosal thickening seen throughout the sinuses.. Tracebilateral mastoid fluid. Bilateral lens implants. Orbits andextracranial soft tissues are otherwise normal. No suspicious marrowreplacing lesions throughout the calvarium or clivus. IMPRESSION: No acute findings or intracranial metastatic disease. 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 Abnormal left internal carotid artery flow void may be due to slow flow orocclusion. Prior ultrasound demonstrated high-grade left proximalcervical internal carotid artery stenosis. CTA of the head and neck couldevaluate further. -------- FINAL REPORT -------- Dictated By: SHAUN MILES Dictated Date: 10/11/2024 13:11 ET Assigned Physician: SHAUN MILES Reviewed and Electronically Signed By: SHAUN MILES Signed Date: 10/11/2024 13:31 ET Workstation ID: [id number] Transcribed By: Self Edit Transcribed Date: 10/11/2024 13:11 ET us Tunde Trejo MD IM MRI PROCEDURES Final Result documented in this encounter Visit Diagnoses Diagnosis Pulmonary nodule Other diseases of lung, not elsewhere classified Hilar lymphadenopathy Enlargement of lymph nodes documented in this encounter Administered Medications Inactive Administered Medications - up to 3 most recent administrations Medication Order MAR Action Action Date Dose Rate Site gadoterate meglumine (CLARISCAN, DOTAREM) injection 15 mL 15 mL, intravenous, Once in imaging, Starting on Mon10/11/24 at 1330, For 1 dose Given 10/11/2024 1:32 PM EST 15 mL documented in this encounter Orders Medications Ordered That Mikel ht Not Have Been Administered Count Last Ordered Date First Ordered Date gadoterate meglumine (KARSON CAN, DOTAREM) injection 15 mL 1 10/11/2024 documented in this encounter Care Teams Wind Tunnel Engineer Relationship Specialty Start Date End Date Will Monroe MD [address] [place] [phone] PCP - General Internal Medicine 07/08/24 documented as of this encounter
--- OUTSIDE RECORDS SUMMARY | 2024-10-15 19:10 | XMS_ITS | Encounter Summary ---
Author Organization [facility] Address [address] [place] [address] Care Team Providers Care Casting Machine Service Operator Name Role Phone Will Monroe MD Primary Care Provider [phone] Reason for Visit * Reason Onset Date Comments Fitting for DME 10/04/2024 Faxed form from [facility] Encounter Details Date Type Department Care Team (Late st Contact Info) Description 10/04/2024 Telephone Adult Medicine [address] [phone] Tawana Ambrocio LPN Fitting for DME (Faxed form from [facility]) Social History Tobacco Use Types Packs/Day Years [...] on file documented as of this encounter Progress Notes * Ju Scott MA - 10/04/2024 3:02 PM EST Form placed for you to review and sign * Tawana Ambrocio LPN - 10/04/2024 10:34 AM EST For oxygen services She is followed by pulmonary Last visit was 09/24/24 with Jelena Reynolds Fax was faxed to Pulmonary Message sent to pulmonary Thank you Tawana EISENBERG DME documented in this encounter Plan of Treatment Upcoming Encounters Date Type Department Care Team (Late st Contact Info) Description 10/21/2024 1:30 PM EST Appointment [facility] CT Scan [address] [place] [address] 10/25/2024 3:30 PM EST Consult Pulmonology - [place] 299 [facility] [address] [place] [address] Laura Avalos MD [address] [place] [address] 11/27/2024 11:30 AM EDT Office Visit Pulmonolgy - [place] 175 [facility] [address] [place] [address] Jelena Hoff NP 175 [facility] [address] [place] [address] 01/07/2025 1:15 PM EDT Office Visit Adult Medicine [facility] [address] [place] [address] Will Monroe MD [address] [place] [address] 03/11/2025 11:00 AM EDT Appointment [facility] Ultrasound [address] [place] [address] 03/26/2025 11:00 AM EDT Office Visit Vascular Surgery - [place] 300 [facility] [address] [place] [phone] Krupa Garcia MD 300 [facility] [address] [place] [address] documented as of this encounter Visit Diagnoses Not on filedocumented in this encounter Care Teams Casting Machine Service Operator Relationship Specialty Start Date End Date Will Monroe MD [address] [place] [phone] PCP - General Internal Medicine 07/08/24 documented as of this encounter
--- OUTSIDE RECORDS SUMMARY | 2024-10-15 19:10 | XMS_ITS | Clinical Summary ---
Author Organization 175 [facility] Address [address] [place] [address] Phone Care Team Providers Care Network Diagnostic Support Specialist Name Role Phone Will Monroe MD Primary Care Provider [phone] Allergies Active Allergy Reactions Criticality Noted Date Comments Aspirin 07/24/2017 Other Reaction(s): Rash/Dermatitis Azithromycin Nausea And Vomiting 07/24/2017 Latex 07/24/2017 Other Reaction(s): Hives/Urticaria Penicillins 07/24/2017 Other Reaction(s): Rash/Dermatitis Sulfa (Sulfonamide Antibiotics) 07/24/2017 Other Reaction(s): Hives/Urticaria Tetracycline Nausea And Vomiting 03/13/2018 Medications adalimumab (Humira,CF, Pen) 40 mg/0.4 mL pen Inject 40 mg into the skin every 14 days for 28 days. Active albuterol 2.5 mg /3 mL (0.083 %) nebulizer solution Take 1 Vial by nebulization every 6 hours as needed for Wheezing or Shortness of Breath for up to 180 days. 021 Active albuterol HFA (PROAIR HFA ; PROVENTIL HFA ; VENTOLIN HFA) 90 mcg/actuation inhaler Inhale 2 Puffs into the lungs every 4 hours as needed for Cough or Wheezing. 023 Active ARIPiprazole (ABILIFY) 2 mg tablet Take 5 mg by mouth daily. Active carvediloL (COREG) 12.5 mg tablet Take 1 Tablet by mouth 2 times daily. 024 Active cloNIDine (CATAPRES) 0.1 mg tablet Take 1 Tablet by mouth 2 times daily. Active diazePAM (VALIUM) 10 mg tablet Take 1 Tablet by mouth every 8 hours as needed for Anxiety. Active docusate sodium (COLACE) 100 mg capsule Take 1 Cap by mouth 2 times daily for 30 days. 018 Active mirtazapine (REMERON) 30 mg tablet TAKE ONE TABLET EVERY NIGHT AT BEDTIME Active ondansetron ODT (ZOFRAN-ODT) 4 mg disintegrating tablet Take 1 Tablet by mouth every 8 hours as needed for Nausea. Active cycloSPORINE (Restasis MultiDose) 0.05 % drops PLACE ONE DROP IN EACH EYE TWICE DAILY Active diclofenac (VOLTAREN) 1 % topical gel Apply 4 g topically 4 times daily. Active clopidogreL (PLAVIX) 75 mg tablet TAKE ONE TABLET DAILY 90 tablet 1 Active simvastatin (ZOCOR) 20 mg tablet Take 1 tablet (20 mg total) by mouth at bedtime. at bedtime. 90 tablet 1 Active Trintellix 5 mg tablet Take 1 tablet (5 mg total) by mouth 1 (one) time each day. Active phenytoin (DILANTIN) 100 mg ER capsuleIndication s:Seizure disorder (CMS/HCC) Take 1 capsule (100 mg total) by mouth 2 (two) times a day. 270 capsule Active fluticasone propionate (FLONASE) 50 mcg/actuation nasal sprayIndications: Non-seasonal allergic rhinitis due to other allergic trigger Administer 2 sprays into each nostril 1 (one) time each day. Shake gently. Before first use, prime pump. After use, clean tip and replace cap. 16 g 2 025 2024 Active sodium chloride-aloe vera (Saline Nasal, aloe vera,) gel topical gelIndications:No n-seasonal allergic rhinitis due to other allergic trigger Apply 1 Application to affected nostril(s) if needed (nasal dryness). 14.1 g 3 025 Active fluticasone-salme terol (ADVAIR DISKUS) 250-50 mcg/dose diskus inhalerIndication s:Pulmonary emphysema, unspecified emphysema type (CMS/HCC) Inhale 1 puff by mouth 2 (two) times a day. Inhale 1 Puff into the lungs 2 times daily. 3 each 3 025 Active tiotropium (Spiriva with HandiHaler) 18 mcg per inhalation capsuleIndication s:Pulmonary emphysema, unspecified emphysema type (CMS/HCC) Place 1 capsule (18 mcg total) into inhaler and inhale 1 (one) time each day. 3 each 3 025 Active fluticasone-salme terol (ADVAIR DISKUS) 250-50 mcg/dose diskus inhaler Inhale 1 Puff into the lungs 2 times daily. 024 2024 Discontinued(R eorder) tiotropium (Spiriva with HandiHaler) 18 mcg per inhalation capsule Place 1 capsule (18 mcg total) into inhaler and inhale 1 (one) time each day. 1 each 5 024 2024 Discontinued(R eorder) phenytoin (DILANTIN) 100 mg ER capsule Take 1 capsule (100 mg total) by mouth 3 (three) times a day. 270 capsule 025 2024 Discontinued Active Problems Problem Noted Date Diagnosed Date Pulmonary nodule 10/07/2024 Assessment & Plan (10/07/2024 2:30 PM EST): 74-year-old woman former smoker with an enlarging left lower lobe pulmonary and a medial perihilar right upper pulmonary nodule versus hilar lymph node both of which are PET avid. I long discussion with her about the findings on her CT scan and as well as her pulmonary function testing which is quite poor. We did also discuss her at multidisciplinary thoracic oncology conference today. I recommendation for her is to get a CT scan of the chest with IV contrast to better elucidate the nodule in the right upper lobe that is perihilar. To the hilar vessels in the general vicinity. I will also get a brain MRI and refer her to interventional pulmonary for a possible robotic bronchoscopy with biopsy. All questions were answered. Hilar lymphadenopathy 10/07/2024 Osteopenia 09/16/2021 Psoriatic arthritis 08/11/2021 Overview (06/12/2024): Humira started 03/2021 Psoriasis 07/08/2020 Positive Lyme disease serology 06/18/2020 Overview (06/12/2024): External labs 05/2020, apparently treated with clindamycin Retreated - June 2020 - no response Elevated rheumatoid factor 06/11/2020 Overview (06/12/2024): External lab rheumatoid factor 339 05/2020 GERD (gastroesophageal reflux disease) 9 Helicobacter positive gastritis 10/23/2018 CKD (chronic kidney disease) stage 3, GFR 30-59 ml/min 03/13/2018 Hyperlipidemia 03/13/2018 Multilevel degenerative disc disease 03/13/2018 Renal calculi 03/13/2018 Overview (06/12/2024): Right, small and nonobstructing Irritable bowel syndrome 03/08/2018 Dermatochalasis of both upper eyelids 11/22/2017 Overview (06/12/2024): Severe bilateral senile ptosis, 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 Nuclear sclerosis of both eyes 11/22/2017 Anxiety 07/24/2017 Overview (06/12/2024): Followed by ADELA Rose, Amari. 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 Headache 07/24/2017 Overview (06/12/2024): Intractable chronic post-traumatic h/a. HTN (hypertension) 07/24/2017 Occlusion of left carotid artery 07/24/2017 Overview (06/12/2024): MRA 04/24/14, MRA neck 01/12/2016: Occlusion of L ICA. 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 On Dilantin Thrombocytopenia 07/24/2017 Vitamin D deficiency 07/24/2017 Encounters Date Type Department Care Team Description 10/11/2024 10:57 AM EST - 10/11/2024 11:59 PM EST Hospital Encounter [facility] MRI [address] [place] [phone] Pulmonary nodule; Hilar lymphadenopathy Discharge Disposition: Home or Self Care 10/07/2024 2:30 PM EST Consult Thoracic Surgery - [place] [address] [facility] [address] [place] [phone] Tunde Trejo MD Incidental lung nodule, greater than or equal to 8mm (Primary Dx); Pulmonary nodule; Hilar lymphadenopathy; Chronic obstructive pulmonary disease, unspecified COPD type (CMS/HCC) [facility] [address] [place] [address] Jelena Hoff NP DURABLE MEDICAL EQUIPMENT 10/04/2024 Telephone Adult [address] [phone] Tawana Ambrocio LPN Fitting for DME (Faxed form from [employer]) 09/24/2024 11:30 AM EST [facility] [address] [place] [address] Jelena Hoff NP Seizure disorder (CMS/HCC) (Primary Dx); Incidental lung nodule, greater than or equal to 8mm; Pulmonary emphysema, unspecified emphysema type (CMS/HCC); Former heavy cigarette smoker (20-39 per day); Exercise hypoxemia; Non-seasonal allergic rhinitis due to other allergic trigger 09/24/2024 Telephone Pulmonolgy [facility] [address] [phone] Jelena Hoff, CARY 09/18/2024 12:37 PM EST - 09/18/2024 11:59 PM EST Hospital Encounter [facility] PET Scan [address] [place] [phone] Incidental lung nodule, greater than or equal to 8mm Discharge Disposition: Home or Self Care 09/11/2024 Billing Patient Not Present Adult Medicine [address] [phone] Will Monroe MD Obstructive chronic bronchitis with exacerbation (CMS/HCC) (Primary Dx); Dependence on supplemental oxygen; Atherosclerosis of [place] coronary artery without angina pectoris, unspecified whether te[place] or transplanted heart; Essential (primary) hypertension; Intercostal pain; Other symptoms and signs involving cognitive functions and awareness; Solitary pulmonary nodule 09/04/20[facility] [address] [phone] Jelena Hoff, CARY 09/03/2024 10:50 AM EST - 09/03/2024 11:59 PM EST Hospital Encounter CT Scan [address] [phone] Pulmonary emphysema, unspecified emphysema type (CMS/HCC); Former heavy cigarette smoker (20-39 per day); Incidental lung nodule, greater than or equal to 8mm Discharge Disposition: Home or Self Care 08/12/2024 Telephone [facility] [address] [phone] Jelena Hoff, CARY 07/31/2024 Telephone Adult Medicine [address] [phone] Will Monroe MD VNA Order (Deed/07/09/24 & 07/11/24) 07/22/2024 10:00 AM EST [facility] [place] [address] [place] [address] Omer Grady MD Pulmonary emphysema, unspecified emphysema type ([facility]/HCC) 07/19/2024 Telephone Adult Medicine [address] [phone] Suzanne Sheppard MA faxed order ([facility] DOS 07/01/24) 07/19/2024 Telephone Adult Medicine [facility] [address] [place] [phone] Suzanne Sheppard [place] faxed order ([facility] OT eval and Care plan 05/30/24-07/28/25) from Last 3 Months Immunizations Name Administration Dates Next Due Influenza Quadravalent, MDCK , 0.5ml, preservative free (Flucelvax) 6mo and older 07/24/2018 Influenza trivalent, 0.5mL ( Fluad) 65yo and older 06/08/2023,05/17/2022,06/15/2021,05/23,07/23/2019 Influenza trivalent, with pr eservative (Fluzone; Afluria) 6mo and older 05/23/2020 Influenza, Unspecified 06/04/2021 [facility] SARS-CoV-2 COVID-19, mRNA, LNP-S, preservative free 12/25/2020 Pneumococcal conjugate 13 va lent (Prevnar 13, PCV13) 2mo and older 08/25/2017 Pneumococcal polysaccharide 23 valent (Pneumovax 23) 2yo and older 08/28/2019 Td Tetanus diptheria (Tdvax) 7yo and older 01/03/2016 Surgical History Surgery Date Site/Laterality Comments APPENDECTOMY PROCEDURE: HISTORICAL APPENDECTOMY; COMMENT: age 10 OOPHORECTOMY Right PROCEDURE: HISTORICAL OOPHORECTOMY; COMMENT: partial TONSILLECTOMY PROCEDURE: HISTORICAL TONSILLECTOMY OTHER SURGICAL HISTORY 09/2016 Left PROCEDURE: AR OPTX ILIAC TUBRST AVLS/WING FX FIXJ IF PRFRMD; COMMENT: s/p pelvic repair, [place] UPPER GASTROINTESTINAL ENDOSCOPY 10/03/2018 PROCEDURE: UPPER GI ENDOSCOPY/EXAM; COMMENT: mild edema UPPER GASTROINTESTINAL ENDOSCOPY 02/13/2019 PROCEDURE: UPPER GI ENDOSCOPY/EXAM; COMMENT: non specific edema, biopsy pending Medical History Medical History Date Comments Anxiety 07/24/2017 DX:Anxiety 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) 07/24/2017 DX:Aphasia as late effe ct of cerebrovascular accident (CVA) Carotid stenosis, left 07/24/2017 DX:Caroti d stenosis, left; COMMENT: MRA 04/24/14, MRA neck 01/12/2016: Occlusion of L ICA. Updated stable 12/01/17: No significant right internal carotid stenosis by Doppler CKD (chronic kidney disease) stage 3, GFR 30-59 ml/min ([facility]) 03/13/2018 DX:CKD (chronic kidney dise ase) stage 3, GFR 30-59 ml/min ([facility]) COPD (chronic obstructive pu lmonary disease) ([facility]) 07/24/2017 DX:COPD (chronic obstructive pulmonary disease) ([facility]); COMMENT: Chronic bronchitis Depression 07/24/2017 DX:Depression Dermatochalasis of both upper eyelids 11/22/2017 DX:Dermatochalasis of both upper eyelids; COMMENT: Severe bilateral senile ptosis, 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 DX:Facial palsy; COMMENT: Secondary to traumatic head injury, fall on R side. Headache 07/24/2017 DX:Headache; COM MENT: Intractable chronic post-traumatic h/a. History of stroke 07/24/2017 DX:History of stroke; COMMENT: Apr 2014 and December 2015. Aphasia and RUE weakness, resolved. 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 On Dilantin Thrombocytopenia (CMS/HCC) 07/24/2017 DX:Th rombocytopenia (HCC) Vitamin D deficiency 07/24/2017 DX:Vitamin D deficiency GERD (gastroesophageal reflux disease) 04/10/2019 DX:GERD (gastroesophageal reflux disease) Psoriasis 07/08/2020 DX:Psoriasis Lung nodule Family History Medical History Relation Name Comments No Known Problems Aunt Arthritis Father Blindness Father Cataracts Father Glaucoma Father Hypertension Father Chronic Lung Di sease, depression/anxiety, glaucoma, arthritis Coronary artery disease Mother dece ased at 32 No Known Problems Other Arthritis Sister Asthma Sister Chronic Lung Di sease, RA No Known Problems Uncle Macular degeneration Neg Hx Strabismus Neg Hx Relation Name Status Comments Aunt Father Mother Other Sister Uncle Social History Tobacco Use Types Packs/Day Years Used Date Smoking Tobacco: Former Smokeless Tobacco: Never Tobacco Cessation:Counseling Given: Not Answered Alcohol Use Standard Drinks/Week Comments No 0 (1 standard drink = 0.6 oz pur e alcohol) Comments Unknown Sex and Gender Information Value Date Recorded Sex Assigned at Not on file Legal Sex Female 1:52 AM EST Gender Identity Not on file Sexual Orientation Not on file Obstetrics History Last Filed Vital Signs Vital Sign Reading Time Taken Comments Blood Pressure 177/72 10/07/2024 2:22 PM EST Pulse 98 10/07/2024 2:22 PM EST Temperature 36.4 ??C (97.6 ??F) 10/07/2024 2:22 PM ES T Respiratory Rate 22 10/07/2024 2:22 PM EST Oxygen Saturation 91% 10/07/2024 2:22 PM EST Inhaled Oxygen Concentration - - Weight 74.8 kg (165 lb) 10/07/2024 2:22 PM EST Height 162.6 cm (5' 4 ) 10/07/2024 2:22 PM EST Body Mass Index 28.32 10/07/2024 2:22 PM EST Plan of Treatment Upcoming Encounters Date Type Department Care Team (Late st Contact Info) Description 10/21/2024 1:30 PM EST Appointment [facility] CT Scan [address] [place] [phone] 10/25/2024 3:30 PM EST Consult Pulmonology - [place] [address] [facility] [address] [place] [phone] Laura Avalos MD [address] [place] [phone] 11/27/2024 11:30 AM EDT Office Visit Pulmonolgy - [place] [address] [facility] [address] [place] [phone] Jelena Hoff NP 175 [facility] [address] [place] [address] 01/07/2025 1:15 PM EDT Office Visit Adult Medicine [facility] [address] [place] [phone] Will Monroe MD [address] [place] [address] 03/11/2025 11:00 AM EDT Appointment [facility] Ultrasound [address] [place] [phone] 03/26/2025 11:00 AM EDT Office Visit Vascular Surgery - [place] [address] [facility] [address] [place] [phone] Krupa Garcia MD 300 [facility] [address] [place] [address] Health Maintenance Due Date Last Done Comments Zoster Vaccines (1 of 2) 1998 Colorectal Cancer Screening: Stool Based Tests (FOBT/FIT) 07/30/2022 Depression Screening 07/30/2022 Falls Risk Assessment 07/30/2022 Medicare Annual Wellness Visit 07/30/2022 Social Influencers of Health Screening 07/30/2022 RSV Immunization Patients 60+ Years Old (1 - 1-dose 75+ series) 2023 COVID-19 Vaccine ( season) 2024 09/08/2021, 12/25/2020, 12/04/2020 Hypertension/CHF/CAD Annual BMP Blood Test 10/07/2025 10/07/2024, 10/30/2023, 01/03/2016 DTaP,Tdap,and Td Vaccines (2 - Td or Tdap) 01/02/2026 01/03/2016 Cholesterol Screening (Lipid Panel) 06/08/2028 06/08/2023 Osteoporosis Screening (Bone Density Screening) 09/16/2031 09/16/2021 Pneumococcal Vaccine: 50+ Years Completed 08/28/2019, 08/25/2017 Hepatitis C Screening Completed 05/13/2020 Influenza Vaccine Completed 05/24/2024, , 05/17/2022, Additional history exists HIB Vaccines Aged Out No longer eligi ble based on patient's age to complete this topic HPV Vaccines Aged Out No longer eligi ble based on patient's age to complete this topic Hepatitis A Vaccines Aged Out No long er eligible based on patient's age to complete this topic Hepatitis B Vaccines Aged Out No long er eligible based on patient's age to complete this topic IPV Vaccines Aged Out No longer eligi ble based on patient's age to complete this topic MMR Vaccines Aged Out No longer eligi ble based on patient's age to complete this topic Meningococcal ACWY Vaccine Aged Out N o longer eligible based on patient's age to complete this topic Meningococcal B Vacine Aged Out No lo nger eligible based on patient's age to complete this topic RSV Immunization Patients Under 20 months Aged Out No longer eligible based on patient's age to complete this topic Varicella Vaccines Aged Out No longer eligible based on patient's age to complete this topic Procedures Procedure Name Priority Date/Time Associated Diagnosis Comments MR BRAIN WO AND W CONTRAST Routine 10/11/2024 1:29 PM EST Pulmonary nodule Hilar lymphadenopathy BASIC METABOLIC PANEL Routine 10/07/2024 3:23 PM EST Incidental lung nodule, greater than or equal to 8mm PET CT SKULL TO MID THIGH INITIAL STAT 09/18/2024 1:56 PM EST Incidental lung nodule, greater than or equal to 8mm CT CHEST WO CONTRAST Routine 09/03/2024 10:54 AM EST Pulmonary emphysema, unspecified emphysema type (CMS/HCC) Former heavy cigarette smoker (20-39 per day) Incidental lung nodule, greater than or equal to 8mm PULMONARY FUNCTION TESTING Routine 07/22/2024 10:24 AM EST Pulmonary emphysema, unspecified emphysema type (CMS/HCC) LIPID PANEL Routine 06/08/2023 DXA BONE DENSITY STUDY 1+ SITS AXIAL SKEL Routine 09/16/2021 11:06 AM EST Encounter for screening for osteoporosis HEPATITIS C SCREENING Routine 05/13/2020 from Last 3 Months or Most Recently Relevant to Health Maintenance Results * MR Brain wo and w [...] further. -------- FINAL REPORT -------- Dictated By: JAS MILES Dictated Date: 10/11/2024 13:11 ET Assigned Physician: JAS MILES Reviewed and Electronically Signed By: JAS MILES Signed Date: 10/11/2024 13:31 ET Workstation ID: [id number] Transcribed By: Self Edit Transcribed Date: 10/11/2024 [...] throughout the calvarium or clivus. Procedure Note Jas Miles MD - 10/11/2024 PROCEDURE: Brain MRI [...] further. -------- FINAL REPORT -------- Dictated By: JAS MILES Dictated Date: 10/11/2024 13:11 ET Assigned Physician: JAS MILES Reviewed and Electronically Signed By: JAS MILES Signed Date: 10/11/2024 13:31 ET Workstation ID: [id number] Transcribed By: Self Edit Transcribed Date: 10/11/2024 13:11 ET Tunde Trejo MD IM MRI PROCEDURES Final Result * Basic metabolic panel (10/07/2024 3:23 PM EST) Sodium 141 133 - 145 mmol/L LAB CHEMISTRY METHOD 10/07/2024 4:37 PM [facility] Potassium 4.6 3.5 - 5.5 mmol/L LAB CHEMISTRY METHOD 10/07/2024 4:37 PM [facility] Chloride 105 96 - 110 mmol/L LAB CHEMISTRY METHOD 10/07/2024 4:37 PM [facility] CO2 31 21 - 32 mmol/L LAB CHEMISTRY METHOD 10/07/2024 4:37 PM [facility] Anion Gap 5 3 - 11 LAB CHEMISTRY METHOD 10/07/2024 4:37 PM [facility] Glucose 95 70 - 100 mg/dL LAB CHEMISTRY METHOD 10/07/2024 4:37 PM [facility] BUN 15 5 - 25 mg/dL LAB CHEMISTRY METHOD 10/07/2024 4:37 PM [facility] Creatinine 0.88 0.50 - 1.10 mg/dL LAB CHEMISTRY METHOD 10/07/2024 4:37 PM [facility] eGFR 68 >=60 mL/min/1. 73m2 LAB CHEMISTRY METHOD 10/07/2024 4:37 PM [facility] Comment:Calculation based on the??Chronic Kidney Disease Epidemiology Collaboration (CKD-EPI) equation refit??without adjustment for race. BUN/Creatinine Ratio 17.0 LAB CHEMISTRY METHOD 10/07/2024 4:37 PM EST [facility] Calcium 9.2 8.5 - 10.5 mg/dL LAB CHEMISTRY METHOD 10/07/2024 4:37 PM EST [facility] Blood Venous blood specimen / Unknown Venipuncture / Unknown 10/07/2024 3:23 PM EST 10/07/2024 4:02 PM EST us Tunde Trejo MD LAB BLOOD ORDERABLES Final Resul t [facility] [address] [place] [address], [place] [phone] * PET CT Skull to Mid Thigh Initial (09/18/2024 1:56 PM EST) Anatomical Region Laterality Modality Body Radiographic Mireya ging 09/18/2024 2:34 PM EST Impressions 09/18/2024 2:44 PM EST Metabolically active right upper lobe and left lower lobe pulmonary nodules suspicious for possibly 2 separate lung carcinomas in the setting of severe emphysematous disease. -------- FINAL REPORT -------- Dictated By: Ashley Lees Dictated Date: 09/18/2024 14:34 ET Assigned Physician: Ashley Lees Reviewed and Electronically Signed By: Ashley Lees Signed Date: 09/18/2024 14:44 ET Workstation ID: [id number] Transcribed By: Self Edit Transcribed Date: 09/18/2024 14:34 ET Narrative 09/18/2024 2:44 PM EST INDICATION: Pulmonary nodule, initial treatment strategy Prior relevant studies: Outside chest CT from September 03, 2024 Radiopharmaceutical: 13.3 mCi of F-18 FDG IV. Blood glucose: 116 mg/dl. PROCEDURE: Routine body FDG PET-CT imaging was performed from the skull base to the proximal/mid thighs and reconstructed in axial, coronal, and sagittal planes at the computer workstation with fused data from both the PET imaging study and attenuation correction CT. The CT portion of the examination was done strictly for attenuation correction and is not a true diagnostic CT examination. CTDI: 8.28 mGy FINDINGS: HEAD AND NECK: No abnormal FDG activity. THORAX: FDG avid peripheral left lower lobe pulmonary nodule with SUV max of 2.5. FDG avid nodule centrally within the inferior medial aspect of the right upper lobe adjacent to the hilum with SUV max of 11.7. No discrete FDG avid thoracic nodes. ABDOMEN/PELVIS: No abnormal FDG activity. MUSCULOSKELETAL: No abnormal FDG activity. Procedure Note Ashley Lees MD - 09/18/2024 INDICATION: Pulmonary nodule, initial treatment strategy Prior relevant studies: Outside chest CT from September 03, 2024 Radiopharmaceutical: 13.3 mCi of F-18 FDG IV. Blood glucose: 116 mg/dl. PROCEDURE: Routine body FDG PET-CT imaging was performed from the skullbase to the proximal/mid thighs and reconstructed in axial, coronal, andsagittal planes at the computer workstation with fused data from both thePET imaging study and attenuation correction CT. The CT portion of theexamination was done strictly for attenuation correction and is not a truediagnostic CT examination. CTDI: 8.28 mGy FINDINGS: HEAD AND NECK: No abnormal FDG activity. THORAX: FDG avid peripheral left lower lobe pulmonary nodule with SUV maxof 2.5. FDG avid nodule centrally within the inferior medial aspect of the rightupper lobe adjacent to the hilum with SUV max of 11.7. No discrete FDG avid thoracic nodes. ABDOMEN/PELVIS: No abnormal FDG activity. MUSCULOSKELETAL: No abnormal FDG activity. IMPRESSION: Metabolically active right upper lobe and left lower lobe pulmonarynodules suspicious for possibly 2 separate lung carcinomas in the settingof severe emphysematous disease. -------- FINAL REPORT -------- Dictated By: Ashley Lees Dictated Date: 09/18/2024 14:34 ET Assigned Physician: Ashley Lees Reviewed and Electronically Signed By: Ashley Lees Signed Date: 09/18/2024 14:44 ET Workstation ID: [id number] Transcribed By: Self Edit Transcribed Date: 09/18/2024 14:34 ET us Jelena Sevastyanova WELL SURVEYING ENGINEER IMG NM PROCEDURES Final Result * CT Chest wo Contrast (09/03/2024 10:54 AM EST) Anatomical Region Laterality Modality Body Computed Tomogra phy 09/03/2024 11:2 0 AM EST Narrative 09/03/2024 11:[address] without intravenous contrast. History follow-up on left lower lobe pulmonary nodule. Examination was performed on multidetector scanner without administration of intravenous contrast. Comparison with prior examination from 05/23/2024. There is arm interval progression of the lobulated pleural-based pulmonary nodule in the left lower lobe which on today's study measures 12 x 7.4 x 8.3 mm. No new pulmonary nodules are identified. Again noted is some marked centrilobular emphysema which is more prominent in the upper lobes. There is no pleural or pericardial effusion. Mediastinal and hilar structures as well as visualized portions of the abdominal organs are stable in appearance. There is no suspicious bone abnormalities. CONCLUSIONS: Interval enlargement of the left lower lobe pulmonary nodule as detailed. Possibility of malignancy should be considered. PET scan is recommended for further assessment. -------- FINAL REPORT -------- Dictated By: Rosie Obrien Dictated Date: 09/03/2024 11:20 ET Assigned Physician: Rosie Obrien Reviewed and Electronically Signed By: Rosie Obrien Signed Date: 09/03/2024 11:30 ET Workstation ID: [id number] Transcribed By: Self Edit Transcribed Date: 09/03/2024 11:20 ET Procedure Note Rosie Obrien MD - 09/03/[address] without intravenous contrast. History follow-up on left lower lobe pulmonary nodule. Examination was performed on multidetector scanner without administrationof intravenous contrast. Comparison with prior examination from05/23/2024. There is arm interval progression of the lobulated pleural-based pulmonarynodule in the left lower lobe which on today's study measures 12 x 7.4 x8.3 mm. No new pulmonary nodules are identified. Again noted is somemarked centrilobular emphysema which is more prominent in the upper lobes.There is no pleural or pericardial effusion. Mediastinal and hilarstructures as well as visualized portions of the abdominal organs arestable in appearance. There is no suspicious bone abnormalities. CONCLUSIONS: Interval enlargement of the left lower lobe pulmonary noduleas detailed. Possibility of malignancy should be considered. PET scan isrecommended for further assessment. -------- FINAL REPORT -------- Dictated By: Rosie Obrien Dictated Date: 09/03/2024 11:20 ET Assigned Physician: Rosie Obrien Reviewed and Electronically Signed By: Rosie Obrien Signed Date: 09/03/2024 11:30 ET Workstation ID: [id number] Transcribed By: Self Edit Transcribed Date: 09/03/2024 11:20 ET Jelena Hoff NP IMG CT PROCEDURES Final Result * Pulmonary function testing: Carbon Monoxide Diffusing Capacity, Nitrogen Wash Out, Spirometry with Bronchodilator, Nitric Oxide Gas Determination (07/22/2024 10:24 AM EST) Impressions Omer Grady MD - 07/22/2024 10:24 AM EST DATE OF SERVICE: 07/22/24 SPIROMETRY: FEV1 is 39 % predicted and an FVC ??is 60 % predicted. The FEV1/FVC ratio is 64% of normal, no response to bronchodilators noted. LUNG VOLUMES: Total lung capacity (TLC): 80% predicted. Residual volume (RV): 105% predicted RV/TLC ratio is 127% of normal DIFFUSION CAPACITY: DLCO 23% predicted. DlCO/VA 35% of predicted COMPARISONS: INTERPRETATION: This pulmonary function test shows severe obstructive changes with gas trapping, the findings are consistent with pulmonary emphysema, the NIOX was not elevated at 16 ppb ??Oemr Grady MD ?? us Jelena Hoff NP PFT ORDERABLES Final R esult * Lipid panel (06/08/2023) LDL/HDL Ratio 2 0 - 4 Triglycerides 121 0 - 150 mg/dL Cholesterol 175 0 - 200 mg/dL HDL 91 >=40 mg/dL LDL Cholesterol 60 0 - 100 mg/dL Blood Venous blood specimen / Unknown us Historical Provider LAB BLOOD ORDERABLES Tamy rojas Result * DXA BONE DENSITY STUDY 1+ SITS AXIAL SKEL (09/16/2021 11:06 AM EST) Anatomical Region Laterality Modality Bone Densitometr y 08/12/2021 1:44 PM EST Narrative 09/16/2021 1:24 PM EST BONE DENSITY (DEXA) ? Lumbar Spine T-score is -0.2. ?? (SD relative to 20-29 y/o adult) Z-score is 2.1. ??(SD relative to age matched peers) This is considered normal by WHO criteria. Left Hip T-score is -1.8. Z-score is 0.2. This is considered osteopenia by WHO criteria. IMPRESSION: This patient is considered to have osteopenia by WHO criteria. This patient has a 28% risk of major osteoporotic fracture and a 10% risk of hip fracture over the next 10 years. (World Health Organization Fracture Risk Assessment) [facility] Department of Internal Medicine recommends using National Osteoporosis Foundation (NOF) guidelines in treatment decisions related to osteoporosis. NOF guidelines suggest considering treatment for postmenopausal women and men aged 50 or older presenting with the following: History of hip or vertebral fracture. T-score = -2.5 (DXA) at the femoral neck, total hip, or spine, after appropriate evaluation to exclude secondary causes. Low bone mass (T-score between -1.0 and -2.5 at the femoral neck or spine) AND a 10-year probability of a hip fracture = 3% OR a 10-year probability of a major osteoporosis-related fracture = 20% based on the [place]-adapted WHO algorithm Please note that all treatment decisions require clinical judgment and consideration of individual patient factors, including patient preferences, co-morbidities, previous drug use, risk factors not captured in the FRAX model (e.g., frailty, falls, vitamin D deficiency, increased bone turnover, interval significant decline in bone density) and possible under- or over-estimation of fracture risk by FRAX. Optional alternative screening schedule based on sadiq Franco., [facility] September 08, 2011 for patients with osteopenia (based on hip BMD T-score) is as follows: * ??advanced osteopenia (T scores -2.00 to -2.49), BMD testing every year * ??moderate osteopenia (T scores -1.50 to -1.99), BMD testing every 5 years mild osteopenia or normal BMD (T scores -1.50 and higher), BMD testing every 15 years Procedure Note Anais López MD - 08/09/2022 BONE DENSITY (DEXA) Lumbar Spine T-score is -0.2. (SD relative to 20-29 y/o adult) Z-score is 2.1. (SD relative to age matched peers) This is considered normal by WHO criteria. Left Hip T-score is -1.8. Z-score is 0.2. This is considered osteopenia by WHO criteria. IMPRESSION: This patient is considered to have osteopenia by WHO criteria. Thispatient has a 28% risk of major osteoporotic fracture and a 10% risk of hip fracture over the next10 years. (World Health Organization Fracture Risk Assessment) [facility] Department of Internal Medicine recommendsusing National Osteoporosis Foundation (NOF) guidelines in treatment decisions related toosteoporosis. NOF guidelines suggest considering treatment for postmenopausal women and menaged 50 or older presenting with the following: History of hip or vertebral fracture. T-score = -2.5 (DXA) at the femoral neck, total hip, or spine, afterappropriate evaluation to exclude secondary causes. Low bone mass (T-score between -1.0 and -2.5 at the femoral neck or spine)AND a 10-year probability of a hip fracture = 3% OR a 10-year probability of a majorosteoporosis-related fracture = 20% based on the [place]-adapted WHO algorithm Please note that all treatment decisions require clinical judgment andconsideration of individual patient factors, including patient preferences, co- morbidities,previous drug use, risk factors not captured in the FRAX model (e.g., frailty, falls, vitaminD deficiency, increased bone turnover, interval significant decline in bone density) andpossible under- or over-estimation of fracture risk by FRAX. Optional alternative screening schedule based on sadiq Franco., NEJMJanuary 2011 for patients with osteopenia (based on hip BMD T-score) is as follows: * advanced osteopenia (T scores -2.00 to -2.49), BMD testing every year * moderate osteopenia (T scores -1.50 to -1.99), BMD testing every 5years mild osteopenia or normal BMD (T scores -1.50 and higher), BMD testingevery 15 years Jess DOWNING IMG DXA PROCEDURES Final Resu lt * Hepatitis C Screening (05/13/2020) [facility] Hepatitis C Screening Abstracted us Historical Provider MD HEALTH MAINTENANCE Final Result from Last 3 Months or Most Recently Relevant to Health Maintenance Insurance [employer] MEDICARE MEDICAID - [place] Care Teams Network Diagnostic Support Specialist Relationship Specialty Start Date End Date Will Monroe MD [address] [place] [address] PCP - General Internal Medicine 07/08/24
--- OUTSIDE RECORDS SUMMARY | 2024-10-15 19:10 | XMS_ITS | Encounter Summary ---
Author Organization [facility] Address [address] [place] [address] Care Team Providers Care Global Marketing Manager Name Role Phone Will Monroe MD Primary Care Provider [phone] Encounter Details Date Type Department Care Team (Late Contact Info) Description 09/24/2024 Telephone Pulmonolgy - [place] [facility] [address] [place] [phone] Jelena Hoff NP 175 [facility] [address] [place] [address] Social History Tobacco Use Types Packs/Day Years [...] on file documented as of this encounter Plan of Treatment Upcoming Encounters Date Type Department Care Team (Late Contact Info) Description 10/21/2024 1:30 PM EST Appointment [facility] CT Scan [address] [place] [phone] 10/25/2024 3:30 PM EST Consult Pulmonology - [facility] [address] [facility] [address] [place] [phone] Laura Avalos MD [address] [place] [phone] 11/27/2024 11:30 AM EDT Office Visit Pulmonolgy - [place] [address] [facility] [address] [place] [phone] Jelena Hoff NP 175 [facility] [address] [place] [address] 01/07/2025 1:15 PM EDT Office Visit Adult Medicine [facility] [address] [place] [phone] Will Monroe MD [address] [place] [phone] 03/11/2025 11:00 AM EDT Appointment [facility] Ultrasound [address] [place] [phone] 03/26/2025 11:00 AM EDT Office Visit Vascular Surgery - [place] [address] [facility] [address] [place] [phone] Krupa Garcia MD [address] [facility] [address] [place] [address] documented as of this encounter Visit Diagnoses Not on filedocumented in this encounter Care Teams Global Marketing Manager Relationship Specialty Start Date End Date Will Monroe MD [address] [place] [phone] PCP - General Internal Medicine 07/08/24 documented as of this encounter
--- OUTSIDE RECORDS SUMMARY | 2024-10-15 19:10 | XMS_ITS | Encounter Summary ---
Author Organization [facility] Address [address] [place] [address] Care Team Providers Care Divorce Lawyer Name Role Phone Will Monroe MD Primary Care Provider [phone] Reason for Visit * Reason Comments Lung Nodule COPD Results PET SCAN Encounter Details Date Type Department Care Team ([facility] st Contact Info) Description 09/24/2024 11:30 AM EST Office Visit Pulmonolgy - [place] [address] [place] [address] Jelena Hoff NP [address] [place] [address] Seizure disorder (CMS/HCC) (Primary Dx); Incidental lung nodule, greater than or equal to 8mm; Pulmonary emphysema, unspecified emphysema type (CMS/HCC); Former heavy cigarette smoker (20-39 per day); Exercise hypoxemia; Non-seasonal allergic rhinitis due to other allergic trigger Social History Tobacco Use Types Packs/Day Years [...] on file documented as of this encounter Last Filed Vital Signs Vital Sign Reading Time Taken Comments Blood Pressure 132/70 09/24/2024 11:42 AM EST Pulse 60 09/24/2024 11:42 AM EST Temperature 36.3 ??C (97.4 ??F) 09/24/2024 1 1:42 AM EST Respiratory Rate 16 09/24/2024 11:4 2 AM EST Oxygen Saturation 99% 09/24/2024 11: 42 AM EST with 2 L of oxygen Inhaled Oxygen Concentration - - Weight 76 kg (167 lb 9.6 oz) 09/24/2024 11:42 AM EST Height 163.8 cm (5' 4.5 ) 09/24/2024 11 :42 AM EST Body Mass Index 28.32 09/24/2024 11:42 AM EST documented in this encounter Ordered Prescriptions Prescription Sig Dispense Quantity Refills Last Filled Start Date End Date tiotropium (Spiriva with HandiHaler) 18 mcg per inhalation capsuleIndications :Pulmonary emphysema, unspecified emphysema type (CMS/HCC) Place 1 capsule (18 mcg total) into inhaler and inhale 1 (one) time each day. 3 each 3 09/24/2024 fluticasone-salmet avery (ADVAIR DISKUS) 250-50 mcg/dose diskus inhalerIndications :Pulmonary emphysema, unspecified emphysema type (CMS/HCC) Inhale 1 puff by mouth 2 (two) times a day. Inhale 1 Puff into the lungs 2 times daily. 3 each 3 09/24/2024 sodium chloride-aloe vera (Saline Nasal, aloe vera,) gel topical gelIndications:Non -seasonal allergic rhinitis due to other allergic trigger Apply 1 Application to affected nostril(s) if needed (nasal dryness). 14.1 g 3 09/24/2024 fluticasone propionate (FLONASE) 50 mcg/actuation nasal sprayIndications:N on-seasonal allergic rhinitis due to other allergic trigger Administer 2 sprays into each nostril 1 (one) time each day. Shake gently. Before first use, prime pump. After use, clean tip and replace cap. 16 g 2 09/24/2024 phenytoin (DILANTIN) 100 mg ER capsuleIndications :Seizure disorder (CMS/HCC) Take 1 capsule (100 mg total) by mouth 2 (two) times a day. 270 capsule 09/24/2024 documented in this encounter Progress Notes * Jelena Hoff NP - 09/24/2024 11:30 AM EST ADULT PULMONARY MEDICINE FOLLOW UP CHIEF COMPLAINT or REASON FOR CONSULTATION: Lung Nodule, COPD, and Results (PET SCAN ) FIRST VISIT IN THIS PULMONARY CLINIC 07/10/2024 See note for further assessment information. IDENTIFIER Rita Draper is a 74 y.o. years old, female History of Present Illness The patient is a 74-year-old female who comes for reevaluation of pulmonary nodules and emphysema. A PET scan was done and shows significant uptake in the right lung nodule. I have discussed with herand that most likely that nodules are malignant but need to be evaluated by biopsy for definite diagnosis for type and stage. She has a thoracic surgery appointment on 09/30/2024. She reports no recent emergency room visits or use of prednisone for her COPD. She recently recovered from a severe cold that lasted several weeks, characterized by coughing, congestion, and clear phlegm production. Residual symptoms include a runny nose, mild nasal congestion, and postnasal drip. She reports no fever or chills. She experienced wheezing but did not have chest or throat tightness.Her shortness of breath remained stable compared to her pre- cold state, although she had difficultyexpectorating thick sputum. She has not attempted to manage her symptoms with [id number] medications such as Robitussin or Mucinex. She has been using an incentive spirometer provided by the hospital. She quit smoking approximately 8 years ago and used an electronic cigarette until a few months ago. Her current medication regimen includes Advair 250/50mcg taken once daily in the morning, and Spiriva, also taken once daily in the morning. She is supposed to take Advair twice a day, but sheforgets to take it. These medications effectively control her symptoms. She is compliant with mouthrinsing after using Advair. She has a history of seizures, with the last episode occurring 30 years ago. She does not currentlyhave a neurologist and does not believe she needs one due to the length of time since her last seizure. She is on Dilantin, prescribed by her primary care physician, taking 1 tablet in the morning and 1 at night but was prescribed TID. She has a history of stroke and carotid artery blockage, with the left side being completely blocked. She was advised against surgery due to the complete blockage. She was informed that other vesselswould compensate for the blockage. She has been on Plavix for over 10 years. She experiences anxiety-related stomach discomfort. She is currently taking Trintellix once daily for anxiety. ALLERGIES: Allergies Allergen Reactions Aspirin Other Reaction(s): Rash/Dermatitis Azithromycin Nausea And Vomiting Latex Other Reaction(s): Hives/Urticaria Penicillins Other Reaction(s): Rash/Dermatitis Sulfa (Sulfonamide Antibiotics) Other Reaction(s): Hives/Urticaria Tetracycline Nausea And Vomiting ACTIVE MEDICATIONS: Outpatient Medications Marked as Taking for the 09/24/24 encounter (Office Visit) with Jelena Hoff NP Medication Sig Dispense Refill adalimumab (Humira,CF, Pen) 40 mg/0.4 mL pen Inject 40 mg into the skin every 14 days for 28 days. albuterol 2.5 mg /3 mL (0.083 %) nebulizer solution Take 1 Vial by nebulization every 6 hours as needed for Wheezing or Shortness of Breath for up to 180 days. albuterol HFA (PROAIR HFA ; PROVENTIL HFA ; VENTOLIN HFA) 90 mcg/actuation inhaler Inhale 2 Puffs into the lungs every 4 hours as needed for Cough or Wheezing. ARIPiprazole (ABILIFY) 2 mg tablet Take 5 mg by mouth daily. carvediloL (COREG) 12.5 mg tablet Take 1 Tablet by mouth 2 times daily. cloNIDine (CATAPRES) 0.1 mg tablet Take 1 Tablet by mouth 2 times daily. clopidogreL (PLAVIX) 75 mg tablet TAKE ONE TABLET DAILY 90 tablet 1 diazePAM (VALIUM) 10 mg tablet Take 1 Tablet by mouth every 8 hours as needed for Anxiety. docusate sodium (COLACE) 100 mg capsule Take 1 Cap by mouth 2 times daily for 30 days. fluticasone-salmeterol (ADVAIR DISKUS) 250-50 mcg/dose diskus inhaler Inhale 1 puff by mouth 2 (two) times a day. Inhale 1 Puff into the lungs 2 times daily. 3 each 3 mirtazapine (REMERON) 30 mg tablet TAKE ONE TABLET EVERY NIGHT AT BEDTIME ondansetron ODT (ZOFRAN-ODT) 4 mg disintegrating tablet Take 1 Tablet by mouth every 8 hours as needed for Nausea. phenytoin (DILANTIN) 100 mg ER capsule Take 1 capsule (100 mg total) by mouth 2 (two) times a day. 270 capsule 0 simvastatin (ZOCOR) 20 mg tablet Take 1 tablet (20 mg total) by mouth at bedtime. at bedtime. 90 tablet 1 tiotropium (Spiriva with HandiHaler) 18 mcg per inhalation capsule Place 1 capsule (18 mcg total) into inhaler and inhale 1 (one) time each day. 3 each 3 Trintellix 5 mg tablet Take 1 tablet (5 mg total) by mouth 1 (one) time each day. [DISCONTINUED] fluticasone-salmeterol (ADVAIR DISKUS) 250-50 mcg/dose diskus inhaler Inhale 1 Puff into the lungs 2 times daily. [DISCONTINUED] phenytoin (DILANTIN) 100 mg ER capsule Take 1 capsule (100 mg total) by mouth 3 (three) times a day. 270 capsule 0 [DISCONTINUED] tiotropium (Spiriva with HandiHaler) 18 mcg per inhalation capsule Place 1 capsule (18 mcg total) into inhaler and inhale 1 (one) time each day. 1 each 5 PROVIDER ATTESTS THAT THE MEDICATION LIST WAS OBTAINED, REVIEWED AND UPDATED. REVIEW OF SYSTEMS: GENERAL: Negative for malaise, significant weight loss and fever but fatigued. HEENT: No changes in hearing or vision, no nose bleeds or other nasal problems NECK: Negative for lumps, goiter, pain and significant neck swelling RESPIRATORY: No cough, wheezing or shortness of breath or chest tightness CARDIOVASCULAR: No chest pain, leg swelling or palpitations GI: No abdominal discomfort, blood in stools or black stools, or acid reflex : No dysuria, frequency or incontinence or nocturia MUSCULOSKELETAL: No joint pain or swelling, back pain, or muscle pain. SKIN: No lesions, rash or itching PSYCH: + sleep disturbance, +anxiety, but denies depression, claustrophobia or SI/HI. HEMATOLOGY/LYMPHOLOGY No prolonged bleeding, easy bruisability or swollen nodes ENDOCRINE: No cold or heat intolerance, polyuria, polydipsia or goiter. NEURO: No persistent headache, syncope, +seizures disorder, weakness or numbness The remainder of the review of systems is noncontributory PAST MEDICAL HISTORY: Patient Active Problem List Diagnosis Date Noted Osteopenia 09/16/2021 Psoriatic arthritis ([facility]/HCC) 08/11/2021 Psoriasis 07/08/2020 Positive Lyme disease serology 06/18/2020 Elevated rheumatoid factor 06/11/2020 GERD (gastroesophageal reflux disease) 04/10/2019 Helicobacter positive gastritis 10/23/2018 CKD (chronic kidney disease) stage 3, GFR 30-59 ml/min ([facility]) 03/13/2018 Hyperlipidemia 03/13/2018 Multilevel degenerative disc disease 03/13/2018 Renal calculi 03/13/2018 Irritable bowel syndrome 03/08/2018 Dermatochalasis of both upper eyelids 11/22/2017 Nuclear sclerosis of both eyes 11/22/2017 Anxiety 07/24/2017 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) 07/24/2017 COPD (chronic obstructive pulmonary disease) ([facility]) 07/24/2017 Depression 07/24/2017 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 Headache 07/24/2017 HTN (hypertension) 07/24/2017 Occlusion of left carotid artery 07/24/2017 Seizure disorder ([facility]) 07/24/2017 Thrombocytopenia ([facility]) 07/24/2017 Vitamin D deficiency 07/24/2017 Past Surgical History: Procedure Laterality Date APPENDECTOMY PROCEDURE: HISTORICAL APPENDECTOMY; COMMENT: age 10 OOPHORECTOMY Right PROCEDURE: HISTORICAL OOPHORECTOMY; COMMENT: partial OTHER SURGICAL HISTORY Left 09/2016 PROCEDURE: [place] OPTX ILIAC TUBRST AVLS/WING FX FIXJ IF PRFRMD; COMMENT: s/p pelvic repair, [place]'s TONSILLECTOMY PROCEDURE: HISTORICAL TONSILLECTOMY UPPER GASTROINTESTINAL ENDOSCOPY 10/03/2018 PROCEDURE: UPPER GI ENDOSCOPY/EXAM; COMMENT: mild edema UPPER GASTROINTESTINAL ENDOSCOPY 02/13/2019 PROCEDURE: UPPER GI ENDOSCOPY/EXAM; COMMENT: non specific edema, biopsy pending SOCIAL HISTORY: TOBACCO: Started 22 years old, Quit: 05/2024, around 1.5 pack daily at the most, for at least 50 years. Patient is 73 PPY. 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 IMMUNIZATION: 2023 Influenza Vaccine 2018 Pneumococcal 13 2019 Pneumococcal 2021 Pfizer x3 PULMONARY HOSPITALIZATION Hx: At: [facility] Admitted: 05/22-05/28/2024 Reasons/Diagnosis: Acute RF due to COPD exacer. At:[facility] Date:?2004 Reason: PNA with COPD Exertion. Visit Vitals BP 132/70 Pulse 60 Temp 36.3 ??C (97.4 ??F) (Temporal) Resp 16 Ht 1.638 m (64.5 ) Wt 76 kg (167 lb 9.6 oz) SpO2 99% Comment: with 2 L of oxygen BMI 28.32 kg/m?? Smoking Status Former BSA 1.82 m?? Physical Exam General Appearance: Overweight (28.32) Alert and in no acute distress. Speaks in full sentences. Nostridor. Eyes: Conjunctiva and sclera normal. Nose/Sinus: Nares normal. Septum midline. Mucosa pink with no drainage or sinus tenderness. Mouth/Throat: Moist, pink with excudates or erythema, Mallampati class 2. Neck: Neck supple, thyroid symmetric and of normal size. Respiratory: Lungs are very diminished. Cardiovascular: RRR with normal S1 and S2, no murmurs, no gallops, no JVD appreciated. Gastrointestinal: Bowel sounds normoactive, soft, non-tender. Lymphatic: No cervical and supra-clavicular lymphadenopathy. Extremities: Warm, well perfused without clubbing, cyanosis, or edema. Skin: Warm and dry, no rash. Neurological: Awake, alert and oriented x 3, no focalization. Other observations: Oxygen saturation is 93% while sitting. DIAGNOSTIC DATA: Peripheral oxygen saturation or SpO2 on RA today is 93% and 99% w 2L 07/10/2024 6 Minute Walk Test Showed: 1.Lowest SpO2 is 85% 2.Fair exercise tolerance and normal cardiac response 3. Supplemental oxygen at 2L with exertion indicated. ([employer]) CARDIOPULMONARY TEST: Last Pulmonary function Test showed: DATE OF SERVICE: 07/22/24 SPIROMETRY: FEV1 is 39 % predicted and an FVC is 60 % predicted. The FEV1/FVC ratio is [...] NIOX was not elevated at 16 ppb RADIOLOGIST IMAGIN09/18/2024 PET SCAN Skull to Thigh INDICATION: Pulmonary nodule, initial treatment strategy Prior relevant studies: Outside chest CT from September 03, 2024 Radiopharmaceutical: 13.3 mCi of F-18 FDG IV. Blood glucose: 116 mg/dl. PROCEDURE: Routine body FDG PET-CT imaging was performed from the skull base to the proximal/mid thighs and reconstructed in axial, coronal, and sagittal planes at the computer workstation with fuseddata from both the PET imaging study and attenuation correction CT. The CT portion of the examination was done strictly for attenuation correction and is not a true diagnostic CT examination. CTDI: 8. 28 mGy FINDINGS: HEAD AND NECK: No abnormal FDG activity. THORAX: FDG avid peripheral left lower lobe pulmonary nodule with SUV max of 2.5. FDG avid nodule centrally within the inferior medial aspect of the right upper lobe adjacent to thehilum with SUV max of 11.7. No discrete FDG avid thoracic nodes. ABDOMEN/PELVIS: No abnormal FDG activity. MUSCULOSKELETAL: No abnormal FDG activity. IMPRESSION: Metabolically active right upper lobe and left lower lobe pulmonary nodules suspicious for possibly2 separate lung carcinomas in the setting of severe emphysematous disease. CT CHEST WO CONTRAST Result Date: 09/03/[address] without intravenous contrast. History follow-up on left lower lobe pulmonary nodule. Examination was performed on multidetector scanner without administration of intravenous contrast. Comparison with prior examination from 05/23/2024. There is arm interval progression of the lobulated pleural-based pulmonary nodule in the left lowerlobe which on today's study measures 12 x [...] PET scan is recommended for further assessment. 05/23/2024 CT CHEST WO CONTRAST AT [facility] SHOWED: FINDINGS: Trachea and airways: Patent without evidence of tracheal or endobronchial lesion. Lungs and pleura: Extensive emphysematous changes. Nonspecific peripheral 8-9 mm left lower lobe pulmonary nodule posterolaterally abutting the pleural surface axial image 58 of series 2. No infiltrate effusion or pneumothorax. Mediastinum and kellie: No mass or hematoma. No mediastinal or hilar lymphadenopathy. No esophageal abnormality. Heart: Heart is normal in size. No pericardial effusion. Aorta: Moderate vascular calcification but no aneurysm. Pulmonary arteries: Normal caliber. Chest wall soft tissues: No acute abnormalities. Diaphragm and included abdomen: No evidence of an acute process. Single punctate right renal calculus. Bones: No acute fractures or suspicious osseous lesions. IMPRESSION: 1. No evidence of an acute process. 2. Severe emphysematous changes. 3. Indeterminate 8-9 mm left lower lobe pulmonary nodule. Consider CT at 3 months, PET/CT, or tissue sampling per Guidelines for Management of Incidental Pulmonary Nodules Detected on CT Images: Fromthe Fleischner Society 2017. ASSESSMENT: 1. Seizure disorder (CMS/HCC) 2. Incidental lung nodule, greater than or equal to 8mm 3. Pulmonary emphysema, unspecified emphysema type (CMS/HCC) 4. Former heavy cigarette smoker (20-39 per day) 5. Exercise hypoxemia 6. Non-seasonal allergic rhinitis due to other allergic trigger Assessment & Plan 1. Chronic Obstructive Pulmonary Disease (COPD): Stable. Her oxygen saturation levels remain withinthe normal range during periods of rest but decrease significantly during physical activity due to impaired respiratory function. She exhibits a diminished lung capacity, which is anticipated given her diagnosis of emphysema. FEV1-39% FEV1/FVC-64% and DLCO/VA- 35% which qualifies for severe COPD onGOLD standard. Her current medication regimen includes Advair 250 mcg and Spiriva, both administered once daily in the morning but need to increase Advair to twice per day. Without significant use ofAlbuterol. - Maintain nasal breathing to optimize oxygen intake. - Utilize the Acapella device 4 times daily, performing 10 repetitions each time, to aid in expectoration. - Use the incentive spirometer to help maintain lung volume. - Use nasal saline gel as needed, but at least twice daily, particularly when using oxygen. - Flonase spray may also be beneficial. - Prescription for a 3-month supply of Advair 250 mcg with refills for a year will be provided. - Prescription for a 3-month supply of Spiriva with refills for a year will also be provided. 2. Pulmonary Nodule: Significant uptake in the right upper lung nodule. A PET scan shows significant uptake in the right lung nodule at 11.7 and LLL with max 2.5. Most likely too different types of lung cancer but needs biopsies to determine. She has a thoracic surgery appointment on 09/30/2024. - If Dr. Cruz recommends biopsies first, she will be referred to interventional radiology. - Treatment options discussed include surgery, radiation, and chemotherapy, depending on the findings. 3. Anxiety: Currently taking Trintellix once a day. 4. Seizure Disorder: Last seizure approximately 30years ago. She is taking Dilantin, 1 tablet in the morning and 1 at night. She does not currently have a neurologist. 5. Carotid Artery Stenosis: Complete blockage of the left carotid artery. She is not a candidate for surgery. Currently on Plavix. 6. Overweight. - deferred at this time. - The patient was educated about respiratory problems, where assessment and plan was reviewed and explained, some educational material about his pulmonary problems was given with the discharge summary. All questions were answered.The above assessment and plan was discussed with Omer Grady MD ( ). Diagnostic testing results were available for review during the discussion. Based on physical exam, symptomatology, tests requested and baseline pulmonary evaluation/disease, I instructed the patient to follow-up with in 2 months and as needed in the interim if other concerns/worsening symptoms. - Follow up with Will Monroe MD for the other co-morbidities. Thanks Will Monroe MD for allowing me to have the opportunity to assist in the care of this patient. I have obtained verbal consent from Rita Draper prior to the recording. I have advised Rita Draper that she may refuse the recording and require the recording to be turned off at any time during thisencounter. documented in this encounter Plan of Treatment Upcoming Encounters Date Type Department Care Team (Late st Contact Info) Description 10/21/2024 1:30 PM EST Appointment [facility] CT Scan [address] [place] [phone] 10/25/2024 3:30 PM EST Consult Pulmonology - [place] [address] [facility] [address] [place] [phone] Laura Avalos MD [address] [place] [address] 11/27/2024 11:30 AM EDT Office Visit Pulmonolgy - [place] [address] [facility] [address] [place] [phone] Jelena Hoff NP [address] [facility] [address] [place] [address] 01/07/2025 1:15 PM EDT Office Visit Adult Medicine [facility] [address] [place] [address] Will Monroe MD [address] [place] [address] 03/11/2025 11:00 AM EDT Appointment [facility] Ultrasound [address] [place] [phone] 03/26/2025 11:00 AM EDT Office Visit Vascular Surgery - [place] [address] [facility] [address] [place] [phone] Krupa Garcia MD [address] [facility] [address] [place] [address] documented as of this encounter Visit Diagnoses Diagnosis Seizure disorder ([facility])- Primary Unspecified epilepsy without mention of intractable epilepsy Incidental lung nodule, greater than or equal to 8mm Other diseases of lung, not elsewhere classified Pulmonary emphysema, unspecified emphysema type ([facility]) Former heavy cigarette smoker (20-39 per day) Exercise hypoxemia Non-seasonal allergic rhinitis due to other allergic trigger documented in this encounter Discontinued Medications Medication Sig Discontinue Reason Start Date End Da te phenytoin (DILANTIN) 100 mg ER capsule Take 1 capsule (100 mg total) by mouth 3 (three) times a day. 09/11/2024 09/24/2024 fluticasone-salmeterol (ADVAIR DISKUS) 250-50 mcg/dose diskus inhaler Inhale 1 Puff into the lungs 2 times daily. Reorder 06/11/2024 09/24/2024 tiotropium (Spiriva with HandiHaler) 18 mcg per inhalation capsule Place 1 capsule (18 mcg total) into inhaler and inhale 1 (one) time each day. Reorder 08/08/2024 09/24/2024 documented as of this encounter Historical Medications * This list may reflect changes made after this encounter. Trintellix 5 mg tablet Take 1 tablet (5 mg total) by mouth 1 (one) time each day. 08/23/2024 added in this encounter Care Teams Divorce Lawyer Relationship Specialty Start Date End Date Will Monroe MD [address] [place] [id number] PCP - General Internal Medicine 07/08/24 documented as of this encounter
--- OUTSIDE RECORDS SUMMARY | 2024-10-15 19:10 | XMS_ITS | Clinical Summary ---
Author Organization [facility] Address [address] [place] [address] Care Team Providers Care Pre Fabricator Name Role Phone Unknown Primary Care Provider [phone] Allergies Active Allergy Reactions Criticality Noted Date Comments Aspirin Anaphylaxis,Rash/Dermatitis High 10/19/19 16 Azithromycin Hives Medium 01/03/2016 Latex Hives Medium 01/03/2016 Penicillins Anaphylaxis,Rash/Dermatitis High 016 Medications Medication Sig Dispensed Refills Start Date End Date Status albuterol (ProAir HFA) 108 (90 Base) MCG/ACT inhaler Inhale 2 puffs. Acti ve ARIPiprazole (ABILIFY) 5 MG tablet Take 5 mg by mouth every morning. 01/17/2023 Active carvedilol (COREG) 12.5 MG tablet Take 12.5 mg by mouth 2 (two) times a day with meals. 12/27/2022 Active cloNIDine (CATAPRES) 0.1 MG tablet Take 0.1 mg by mouth 2 (two) times a day. 12/21/2022 Active clopidogrel (PLAVIX) 75 MG tablet Take 75 mg by mouth daily. 01/10/2023 Active diazepam (VALIUM) 10 MG tablet TAKE ONE TABLET BY MOUTH THREE TIMES DAILY NEEDED FOR ANXIETY OR PANIC 02/09/2023 Active simvastatin (ZOCOR) 20 MG tablet Take 20 mg by mouth nightly. 01/02/2023 Active Spiriva HandiHaler 18 MCG inhalation capsule USE 1 CAPSULE FOR INHALATION ONCE A DAY DO NOT SWALLOW CAPSULE 01/24/2023 Active levoFLOXacin (LEVAQUIN) 750 MG tabletIndications:CO PD with acute exacerbation (HCC) Take 1 tablet (750 mg total) by mouth daily. 7 tablet 02/28/2023 Active predniSONE (DELTASONE) 20 MG tabletIndications:CO PD with acute exacerbation (HCC) Take 2 tablets (40 mg total) by mouth daily. 10 tablet 02/28/2023 Active Active Problems Problem Noted Date Diagnosed Date COPD with acute exacerbation 02/28/2023 Social History Tobacco Use Types Packs/Day Years Used Date Smoking Tobacco: Never Assessed Sex and Gender Information Value Date Recorded Sex Assigned at Not on file Gender Identity Not on file Sexual Orientation Not on file Last Filed Vital Signs Vital Sign Reading Time Taken Comments Blood Pressure 169/94 02/28/2023 2:46 PM EDT Pulse 65 02/28/2023 3:39 PM EDT Temperature 37.2 ??C (99 ??F) 02/28/2023 2:46 PM EDT Respiratory Rate - - Oxygen Saturation 95% 02/28/2023 3:39 PM EDT Inhaled Oxygen Concentration - - Weight - - Height - - Body Mass Index - - Plan of Treatment Health Maintenance Due Date Last Done Comments Hepatitis C Virus Screening 1950 DTaP/Tdap/Td Vaccines (1 - Tdap) 1967 Pneumococcal Vaccines 50+ (1 of 2 - PCV) 1967 Zoster (Shingles) Vaccine (1 of 2) 1998 DXA Bone Density (Females,Ag es 65 and older) 2013 RSV Vaccine 60 years and old er and Patients (1 - 1-dose 75+ series) 2023 Influenza Vaccine 03/21/2024 COVID-19 Vaccine ( - 2023-2 5 season) 2024 Hepatitis B Vaccines Aged Out No long er eligible based on patient's age to complete this topic Care Teams Pre Fabricator Relationship Specialty Start Date End Date Unknown Unknow Provider Address PCP - General 02/28/23
--- OUTSIDE RECORDS SUMMARY | 2024-10-15 19:10 | XMS_ITS | Encounter Summary ---
Author Organization [facility] Address [address] [place] [address] Care Team Providers Care Mortician Supplies Sales Representative Name Role Phone Will Monroe MD Primary Care Provider [phone] Reason for Referral * Imaging (Routine) - Pending Review Specialty Diagnoses / Procedures Referred By Contac t Referred To Contact Radiology Diagnoses Pulmonary nodule Hilar lymphadenopathy Procedures MR Brain wo and w Contrast Tunde Trejo MD [address] [address] Phone: tel: fax: [facility] [address] [place] [address] Phone: tel: Referral ID Status Reason Start Date Expiration Date V isits Requested Visits Authorized [id number] Pending Review 10/07/2024 10/07/2025 1 1 * Consultation (Routine) - Authorized Specialty Diagnoses / Procedures Referred By Contac t Referred To Contact Pulmonology Diagnoses Pulmonary nodule Tunde Trejo MD [address] [address] Phone: tel: fax: Pulmonology - [place] [address] [address] Phone: tel: fax: Referral ID Status Reason Start Date Expiration Date Visits Requested Visits Authorized [id number] Authorized Specialty Services Required 10/07/2024 10/07/2025 12 12 * Imaging (Routine) - Authorized Specialty Diagnoses / Procedures Referred By Charlotte delvalle Referred To Contact Radiology Diagnoses Incidental lung nodule, greater than or equal to 8mm Procedures CT Chest w Contrast Tnude Trejo MD [address] [address] Phone: tel: fax: [facility] [address] [place] [address] Phone: tel: Referral ID Status Reason Start Date Expiration Date V isits Requested Visits Authorized [id number] Authorized 10/07/2024 10/07/2025 1 1 Reason for Visit * Reason Comments Consult * Consultation (Routine) - Closed Specialty Diagnoses / Procedures Referred By Charlotte delvalle Referred To Contact Thoracic Surgery Diagnoses Incidental lung nodule, greater than or equal to 8mm Jelena Hoff NP 175 [facility] [address] [place] [address] Phone: tel: fax: Tunde Trejo MD 299 [facility] [address] [place] [address] Phone: tel: fax: Referral ID Status Reason Start Date Expiration Date V isits Requested Visits Authorized [id number] Closed Specialty Services Required 09/04/2024 09/04/2025 1 1 Encounter Details Date Type Department Care Team (Late st Contact Info) Description 10/07/2024 2:30 PM EST Consult Thoracic Surgery - [place] [address] [address] Tunde Trejo MD 299 [facility] [address] [place] [address] Incidental lung nodule, greater than or equal to 8mm (Primary Dx); Pulmonary nodule; Hilar lymphadenopathy; Chronic obstructive pulmonary disease, unspecified COPD type (CMS/HCC) Social History Tobacco Use Types Packs/Day Years [...] 10/07/2024 2:22 PM ES T Respiratory Rate 10/07/2024 2:22 PM EST Oxygen Saturation 91% 10/07/2024 2:22 PM EST Inhaled Oxygen Concentration - - Weight 74.8 kg (165 lb) 10/07/2024 2:22 PM EST Height 162.6 cm (5' 4 ) 10/07/2024 2:22 PM EST Body Mass Index 28.32 10/07/2024 2:22 PM EST documented in this encounter Progress Notes * Tunde Trejo MD - 10/07/2024 2:30 PM ESTAssociated Problem(s): Pulmonary nodule 74-year-old woman former smoker with an enlarging [...] at multidisciplinary thoracic oncology conference today. I recommend ation for her is to get a CT scan of the chest with IV contrast to better elucidate the nodule in the right upper lobe that is perihilar. To the hilar vessels in the general vicinity. I will also geta brain MRI and refer her to interventional pulmonary for a possible robotic bronchoscopy with biopsy. All questions were answered. * Tunde Trejo MD - 10/07/2024 2:30 PM EST NEW PATIENT CONSULTATION Name: Rita Draper : 1950 Date of Visit: 10/07/2024 Referring Physician: Jelena Hoff,* Primary Care Physician: Will Monroe MD Chief Complaint Patient presents with Consult HPI Ms. Draper is a 74 y.o. female who presents for outpatient consultation regarding the management ofpulmonary nodule left lower lobe and perihilar pulmonary nodule versus hilar lymph node. 74-year-old woman former smoker with history of seizures but for 30 [address] a [address] scan of the chest done on 09/03/2024 which I compared with 05/23/2024. This shows an increasing lobulated pulmonary nodule left lower lobe measuring 12 x 7 x 8 mm. On both of these CT scans there is also a right upper lobe versus hilar lymph node pulmonary nodule measuring about 1 cm. She then had a PET scan doneon 09/18/2024 also reviewed and interpreted by me directly which shows both nodules to be PET avid the perihilar nodule SUV max 11.7 and the left lower lobe nodule SUV max 2.5. She did have pulmonary function testing on 07/22/2024 which showed an FEV1 of 38% of predicted which goes up to 42% of predicted with bronchodilators and a DLCO VA of 35% of predicted. Of note, she does have a history of a stroke and an occluded left carotid artery and is on Plavix. Reports feeling generally in good health denies unintentional loss decreased appetite fevers chillsor soaking sweats. She denies chest pain. She does report shortness of breath with activity and wheezing denies cough or hemoptysis. Nuys any new neurologic symptoms. 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 Updated stable 12/01/17: No significant right internal carotid stenosis by Doppler CKD (chronic kidney disease) stage 3, GFR 30-59 ml/min (CMS/HCC) 03/13/2018 DX:CKD (chronic kidney disease) stage 3, GFR 30-59 ml/min ([facility]) COPD (chronic obstructive pulmonary disease) ([facility]) 07/24/2017 DX:COPD (chronic obstructive pulmonary disease) ([facility]); COMMENT: Chronic bronchitis Depression 07/24/2017 DX:Depression Dermatochalasis of both upper eyelids 11/22/2017 DX:Dermatochalasis of both upper eyelids; COMMENT: Severe bilateral senile ptosis, complicated on Rby R lower motor neuron facial palsy. 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 DX:Facial palsy; COMMENT: Secondary to traumatic head injury, fall on R side. GERD (gastroesophageal reflux disease) 04/10/2019 DX:GERD (gastroesophageal reflux disease) Headache 07/24/2017 DX:Headache; COMMENT: Intractable chronic post-traumatic h/a. History of stroke 07/24/2017 DX:History of stroke; COMMENT: Apr 2014 and December 2015. Aphasia and RUE weakness, resolved. On Plavix History of tobacco use 07/24/2017 DX:History of tobacco use HTN (hypertension) 07/24/2017 DX:HTN (hypertension) Hyperlipidemia 03/13/2018 DX:Hyperlipidemia Irritable bowel syndrome 03/08/2018 DX:Irritable bowel syndrome Lung nodule Multilevel degenerative disc disease 03/13/2018 DX:Multilevel degenerative disc disease Nuclear sclerosis of both eyes 11/22/2017 DX:Nuclear sclerosis of both eyes Psoriasis 07/08/2020 DX:Psoriasis Renal calculi 03/13/2018 DX:Renal calculi; COMMENT: Right, small and nonobstructing Seizure disorder ([facility]) 07/24/2017 DX:Seizure disorder ([facility]); COMMENT: 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 On Dilantin Thrombocytopenia ([facility]) 07/24/2017 DX:Thrombocytopenia ([facility]) Vitamin D deficiency 07/24/2017 DX:Vitamin D deficiency @ALL@ Current Outpatient Medications Medication Sig Dispense Refill adalimumab (Humira,CF, Pen) [...] TAKE ONE TABLET DAILY 90 tablet 1 cycloSPORINE (Restasis MultiDose) 0.05 % drops PLACE ONE DROP IN EACH EYE TWICE DAILY diazePAM (VALIUM) 10 mg tablet Take 1 Tablet by mouth every 8 hours as needed for Anxiety. diclofenac (VOLTAREN) 1 % topical gel Apply 4 g topically 4 times daily. (Patient not taking: Reported on 07/10/2024) docusate sodium (COLACE) 100 mg capsule Take 1 Cap by mouth 2 times daily for 30 days. fluticasone propionate (FLONASE) 50 mcg/actuation nasal spray Administer 2 sprays into each nostril1 (one) time each day. Shake gently. Before first use, prime pump. After use, clean tip and replacecap. 16 g 2 fluticasone-salmeterol (ADVAIR DISKUS) 250-50 mcg/dose diskus inhaler [...] at bedtime. at bedtime. 90 tablet 1 sodium chloride-aloe vera (Saline Nasal, aloe vera,) gel topical gel Apply 1 Application to affected nostril(s) if needed (nasal dryness). 14.1 g 3 tiotropium (Spiriva with HandiHaler) 18 mcg per inhalation capsule Place 1 capsule (18 mcg total) into inhaler and inhale 1 (one) time each day. 3 each 3 Trintellix 5 mg tablet Take 1 tablet (5 mg total) by mouth 1 (one) time each day. No current facility-administered medications for this visit. Social History Tobacco Use Smoking status: Former Smokeless tobacco: Never Substance Use Topics Alcohol use: No Drug use: No Social History Social History Narrative Not on file Family History Problem Relation Name Age of Onset Coronary artery disease Mother at 32 Hypertension Father Chronic Lung Disease, depression/anxiety, glaucoma, arthritis Blindness Father Cataracts Father Glaucoma Father Arthritis Father Asthma Sister Chronic Lung Disease, RA Arthritis Sister No Known Problems Aunt No Known Problems Uncle No Known Problems Other Macular degeneration Neg Hx Strabismus Neg Hx Review of Systems General - Negative for: weight loss/gain, fatigue, fever, chills, weakness, difficulty sleeping Head - Negative for: headache, trauma Eyes - Negative for: acute vision change, blurred vision, double vision, eye pain, conjunctival erythema, eyelid pain/swelling/erythema Ears - Negative for: acute change in hearing, tinnitus, ear pain, ear drainage Nose - Negative for: nasal discharge, nosebleed, itching, sinus pain Mouth/Throat - Negative for: sore throat, swollen throat, dry mouth, hoarseness, dysphagia, odynophagia, oral lesions Neck - Negative for: pain, stiffness, swelling, mass/lumps, swollen glands Cardiovascular - Negative for: chest pain/pressure, exertional chest pain, palpitations, lightheadedness, dizziness, orthopnea, extremity edema Respiratory -as above Gastrointestinal - Negative for: abdominal pain, abdominal distention, bloating, nausea, vomiting, early satiety, diarrhea, constipation, BRBPR, melena, poor appetite Genitourinary - Negative for: dysuria, hematura, urinary frequency, urinary urgency, incontinence Musculoskeletal - Negative for: muscle or joint pain, stiffness, back pain, joint swelling or erythema Neurologic - Negative for: dizziness, seizures, weakness, numbness, tingling, tremor, dysarthria, facial droop Hematologic - Negative for: easy bruising, easy bleeding, ecchymosis, petechiae Endocrine - Negative for: polyuriua, polydipsia, heat or cold intolerance Lymphatic - Negative for: swollen nodes, unexplained lumps/bumps in neck/axillae/groin Skin - Negative for: rashes, lumps, itching, dryness, color change, hair/nail changes Psychiatric - Negative for: depression, anxiety, nervousness, stress, memory change, SI/HI Physical Exam There were no vitals filed for this visit. General: Patient is sitting comfortably in no acute distress, well developed, well nourished Head: Normocephalic, atraumatic, symmetric Eyes: Sclera anicteric, eyelids without edema or erythema, +EOMS intact ENT: Oral mucosa and tongue are moist without lesions or exudates Neck: Soft, supple, symmetric, trachea midline, no crepitus, no mass visualized or palpated Cardiovascular: Regular rate and rhythm, no murmur/rubs/gallops, BUE and BLE without edema, no calftenderness bilaterally Respiratory: Lungs CTAB, breathing nonlabored, speaking in full sentences, on room air. No use of accessory muscles. No obvious chest wall abnormality or deformity Gastrointestinal: Soft, non-tender, non-distended, +normoactive bowel sounds. Lymphatic: no cervical, supraclavicular, infraclavicular, or other lymphadenopathy noted Neurological: Alert and oriented x 3, neurologic exam is grossly normal Psychiatric: No agitation, appropriate affect Pathology Reviewed Micro / Labs Reviewed Radiology Reviewed and interpreted by me directly as above I personally viewed the following imaging studies, in addition to reviewing the dictated report from the reading radiologist Assessment/Plan Problem List Items Addressed This Visit Respiratory COPD (chronic obstructive pulmonary disease) (CMS/HCC) Pulmonary nodule 74-year-old woman former smoker with an enlarging [...] at multidisciplinary thoracic oncology conference today. I recommen dation for her is to get a CT scan of the chest with IV contrast to better elucidate the nodule in the right upper lobe that is perihilar. To the hilar vessels in the general vicinity. I will also get a brain MRI and refer her to interventional pulmonary for a possible robotic bronchoscopy with biopsy. All questions were answered. Relevant Orders Ambulatory referral to Interventional Pulmonology MR Brain wo and w Contrast Hilar lymphadenopathy Relevant Orders MR Brain wo and w Contrast Other Visit Diagnoses Incidental lung nodule, greater than or equal to 8mm - Primary Relevant Orders CT Chest w Contrast Basic metabolic panel Total time spent on date of this encounter: 63 minutes. Reviewing patient's chart, Independently reviewing current/past imaging, Visit with the patient, Counseling and educating patient/family on diagnosis, Discussion of ongoing management, Documenting clinical information in the patient's medical record, and Coordinating care with other health restorative care technician Tunde Trejo MD on 10/07/2024 at 2:34 PM EST CC: Jelena Hoff,* Will Monroe MD documented in this encounter Plan of Treatment Upcoming Encounters Date Type Department Care Team (Late st Contact Info) Description 10/21/2024 1:30 PM EST Appointment [facility] CT Scan [address] [place] [address] 10/25/2024 3:30 PM EST Consult Pulmonology - [place] 299 [facility] [address] [place] [address] Laura Avalos MD [address] [place] [id number] 11/27/2024 11:30 AM EDT Office Visit Pulmonolgy - [place] 175 [facility] [address] [place] [address] Jelena Hoff, BATTALION CHIEF 175 [facility] [address] [place] [address] 01/07/2025 1:15 PM EDT Office Visit Adult Medicine [facility] [address] [place] [phone] Will Monroe MD [address] [place] [phone] 03/11/2025 11:00 AM EDT Appointment [facility] Ultrasound [address] [place] [address] 03/26/2025 11:00 AM EDT Office Visit Vascular Surgery - [place] [address] [place] [address] Krupa Garcia MD [address] [facility] [address] [place] [address] Scheduled Orders Name Type Priority Associated Diagnoses Orde r Schedule CT Chest w Contrast Imaging Routine Incidental lung nodule, greater than or equal to 8mm Expected: 10/07/2024, Expires: 10/07/2025 Scheduled Referrals Name Type Priority Associated Diagnoses Order Schedule Ambulatory referral to Interventional Pulmonology Outpatient Referral Routine Pulmonary nodule 1 Occurrences starting 10/07/2024 until 10/07/2025 documented as of this encounter Results * MR Brain wo [...] Dictated Date: 10/11/2024 13:11 ET Assigned Physician: SAHUN MILES Reviewed and Electronically Signed By: SHAUN MILES Signed Date: 10/11/2024 13:31 ET Workstation ID: [id number] Transcribed By: Self Edit Transcribed Date: 10/11/2024 [...] Signed Date: 10/11/2024 13:31 ET Workstation ID: [id number] Transcribed By: Self Edit Transcribed Date: 10/11/2024 13:11 ET us Tunde Trejo MD IM MRI PROCEDURES Final Result * Basic metabolic panel (10/07/2024 3:23 PM EST) Sodium 141 133 - 145 mmol/L LAB CHEMISTRY METHOD 10/07/2024 4:37 PM [facility] Potassium 4.6 3.5 - 5.5 mmol/L LAB CHEMISTRY METHOD 10/07/2024 4:37 PM [facility] Chloride 105 96 - 110 mmol/L LAB CHEMISTRY METHOD 10/07/2024 4:37 PM [facility] CO2 31 21 - 32 mmol/L LAB CHEMISTRY METHOD 10/07/2024 4:37 PM [facility] Anion Gap 5 3 - 11 LAB CHEMISTRY METHOD 10/07/2024 4:37 PM [facility] Glucose 95 70 - 100 mg/dL LAB CHEMISTRY METHOD 10/07/2024 4:37 PM [facility] BUN 15 5 - 25 mg/dL LAB CHEMISTRY METHOD 10/07/2024 4:37 PM [facility] Creatinine 0.88 0.50 - 1.10 mg/dL LAB CHEMISTRY METHOD 10/07/2024 4:37 PM [facility] eGFR 68 >=60 mL/min/1. 73m2 LAB CHEMISTRY METHOD 10/07/2024 4:37 PM [facility] Comment:Calculation based on the??Chronic Kidney Disease [...] Resul t [facility] [address] [place] [address], documented in this encounter Visit Diagnoses Diagnosis Incidental lung nodule, greater than or equal to 8mm- Primary Other diseases of lung, not elsewhere classified Pulmonary nodule Other diseases of lung, not elsewhere classified Hilar lymphadenopathy Enlargement of lymph nodes Chronic obstructive pulmonary disease, unspecified COPD type (CMS/HCC) Pulmonary nodule Other diseases of lung, not elsewhere classified Hilar lymphadenopathy Enlargement of lymph nodes documented in this encounter Orders Outpatient Referral Count Last Ordered Date Fir st Ordered Date AMB REFERRAL TO THORACIC SURGERY 1 10/07/19 25 documented in this encounter Care Teams Mortician Supplies Sales Representative Relationship Specialty Start Date End Date Will Monroe MD [address] [place] [id number] PCP - General Internal Medicine 07/08/24 documented as of this encounter
--- OUTSIDE RECORDS SUMMARY | 2024-10-15 19:10 | XMS_ITS | Encounter Summary ---
Author Organization [facility] Address [address] [place] [address] Care Team Providers Care Air Pollution Specialist Name Role Phone Will Monroe MD Primary Care Provider [phone] Reason for Referral * Imaging (Emergency) - Closed Specialty Diagnoses / Procedures Referred By Contac t Referred To Contact Radiology Diagnoses Incidental lung nodule, greater than or equal to 8mm Procedures PET CT Skull to Mid Thigh Initial Jelena Hoff NP [address] [address] Phone: tel: fax: [address] [address] Phone: tel: Referral ID Status Reason Start Date Expiration Date Visits Re quested Visits Authorized [id number] Closed 09/04/2024 09/04/2025 1 1 Reason for Visit * Imaging (Emergency) - Closed Specialty Diagnoses / Procedures Referred By Contac t Referred To Contact Radiology Diagnoses Incidental lung nodule, greater than or equal to 8mm Procedures PET CT Skull to Mid Thigh Initial Jelena Hoff NP [address] [address] Phone: tel: fax: [address] [address] Phone: tel: Referral ID Status Reason Start Date Expiration Date Visits Re quested Visits Authorized [id number] Closed 09/04/2024 09/04/2025 1 1 Encounter Details Date Type Department Care Team (Latest Contact Info) Description 09/18/2024 12:37 PM EST - 09/18/2024 11:59 PM EST Hospital Encounter [facility] PET Scan [address] [place] [address] Incidental lung nodule, greater than or equal to 8mm Discharge Disposition: Home or Self Care Social [...] Apply 4 g topically 4 times daily. 4 docusate sodium (COLACE) 100 mg capsule Take 1 Cap by mouth 2 times daily for 30 days. 8 mirtazapine (REMERON) 30 mg tablet TAKE ONE TABLET EVERY NIGHT AT BEDTIME 4 ondansetron ODT (ZOFRAN-ODT) 4 mg disintegrating tablet Take 1 Tablet by mouth every 8 hours as needed for Nausea. 4 simvastatin (ZOCOR) 20 mg tablet Take 1 tablet (20 mg total) by mouth at bedtime. at bedtime. 90 tablet 1 5 Trintellix 5 mg tablet Take 1 tablet (5 mg total) by mouth 1 (one) time each day. 5 fluticasone-salmete rol (ADVAIR DISKUS) 250-50 mcg/dose diskus inhaler Inhale 1 Puff into the lungs 2 times daily. 4 09/24/19 25 phenytoin (DILANTIN) 100 mg ER capsule Take 1 capsule (100 mg total) by mouth 3 (three) times a day. 270 capsule 5 09/24/19 25 tiotropium (Spiriva with HandiHaler) 18 mcg per inhalation capsule Place 1 capsule (18 mcg total) into inhaler and inhale 1 (one) time each day. 1 each 5 4 09/24/19 25 documented as of this encounter Discharge Disposition Disposition Code Departure Means Destination Home or Self Care documented in this encounter Plan of Treatment Upcoming Encounters Date Type Department Care Team (Late st Contact Info) Description 10/21/2024 1:[address] [facility] CT Scan [address] [place] [phone] 10/25/2024 3:30 PM EST Consult Pulmonology - [place] 299 [facility] [address] [place] [phone] Laura Avalos MD [address] [place] [address] 11/27/2024 11:30 AM EDT Office Visit Pulmonolgy - [place] 175 [facility] [address] [place] [phone] Jelena Hoff NP 175 [facility] [address] [place] [address] 01/07/2025 1:15 PM EDT Office Visit Adult [facility] [place] [address] [place] [address] Will Monroe MD 444 [place] [address] 03/11/2025 11:[address] [facility] Ultrasound [address] [place] [phone] 03/26/2025 11:00 AM EDT Office Visit Vascular Surgery - [place] [address] [facility] [address] [place] [phone] Krupa Garcia MD 300 [facility] [address] [place] [address] documented as of this encounter Procedures Procedure Name Priority Date/Time Associated Diagnosis Comments PET CT SKULL TO MID THIGH INITIAL STAT 09/18/2024 1:56 PM EST Incidental lung nodule, greater than or equal to 8mm documented in this encounter Results * PET CT Skull to Mid Thigh [...] Signed Date: 09/18/2024 14:44 ET Workstation ID: [id number] Transcribed By: Self Edit Transcribed Date: 09/18/2024 [...] Signed Date: 09/18/2024 14:44 ET Workstation ID: [id number] Transcribed By: Self Edit Transcribed Date: 09/18/2024 14:34 ET us Jelena Hoff MANAGER [facility] NM PROCEDURES Final Result documented in this encounter Visit Diagnoses Diagnosis Incidental lung nodule, greater than or equal to 8mm Other diseases of lung, not elsewhere classified documented in this encounter Administered Medications Inactive Administered Medications - up to 3 most recent administrations Medication Order MAR Action Action Date Dose Rate Site F-18 FDG pet diag radio-isotope injection 13.3 millicurie 13.3 millicurie, intravenous, Once in imaging, Starting on Mon09/18/24 at 1245, For 1 dose Given 09/18/2024 12:45 PM EST 13.3 millicuries Left Antecubital documented in this encounter Orders Medications Ordered That Mikel ht Not Have Been Administered Count Last Ordered Date First Ordered Date F-18 FDG pet diag radio-isot ope injection 13.3 millicurie 1 09/18/2024 documented in this encounter Care Teams Air Pollution Specialist Relationship Specialty Start Date End Date Will Monroe MD [address] [place] [address] PCP - General Internal Medicine 07/08/24 documented as of this encounter
--- OUTSIDE RECORDS SUMMARY | 2024-10-15 19:10 | XMS_ITS | Encounter Summary ---
Author Organization [facility] Address [address] [place] [address] Care Team Providers Care Import Coordinator Name Role Phone Will Monroe MD Primary Care Provider [phone] Reason for Visit * Reason Onset Date Comments DURABLE MEDICAL EQUIPMENT 10/04/2024 Encounter Details Date Type Department Care Team (Late st Contact Info) Description 10/04/2024 [facility] [address] [facility] [address] [place] [phone] Jelena Hoff, CARY [address] [facility] [address] [place] [address] [place] [address] DURABLE MEDICAL EQUIPMENT Social History Tobacco Use Types Packs/Day Years [...] Progress Notes * Ju Scott MA - 10/07/2024 9:07 AM EST Documentation sent to [employer] intake * Gustavo Ariza - 10/04/2024 1:22 PM EST Fax received from [employer] requesting documentation for oxygen services. Form in patient chart (ONBASE). documented in this encounter Plan of Treatment Upcoming Encounters Date Type Department Care Team (Late st Contact Info) Description 10/21/2024 1:30 PM EST Appointment [facility] CT Scan [address] [place] [phone] 10/25/2024 3:30 PM EST Consult Pulmonology - [place] 299 [facility] [address] [place] [address] Laura Avalos MD [address] [place] [address] 11/27/2024 11:30 AM EDT Office Visit Pulmonolgy - [place] 175 [facility] [address] [place] [phone] Jelena Hoff NP 175 [facility] [address] [place] [address] 01/07/2025 1:15 PM EDT Office Visit Adult Medicine [facility] [address] [place] [address] Will Monroe MD [address] [place] [address] 03/11/2025 11:00 AM EDT Appointment [facility] Ultrasound [address] [place] [phone] 03/26/2025 11:00 AM EDT Office Visit Vascular Surgery - [place] 300 [facility] [address] [place] [phone] Krupa Garcia MD 300 [facility] [address] [place] [address] documented as of this encounter Visit Diagnoses Not on filedocumented in this encounter Care Teams Import Coordinator Relationship Specialty Start Date End Date Will Monroe MD [address] [place] [address] PCP - General Internal Medicine 07/08/24 documented as of this encounter
== END 2024-10-15 15:24 | disposition home or self-care (01) ==
LOC: HO.HOP 15:24
PROVIDERS: PCP Internal Medicine; Visit Provider Clinical Nurse Specialist Psychiatric/Mental Health
DX: F33.1 Major depressive disorder, recurrent, moderate (principal); F43.11 Post-traumatic stress disorder, acute
CPT/HCPCS: 99214

== ENCOUNTER 2024-11-14 10:18 | Outpatient (AMB) | payer MEDICARE, SELFPAY ==
--- NOTE | 2024-11-14 10:09 | A.OFFPSYCH_ITS ---
Intake Intake Visit Reasons: depression Allergies No Known Allergies Allergy (Verified 01/30/24 12:28) Medication List - Last Reconciled 11/14/24 by Angie Neely APRN aripiprazole (Abilify) 5 mg PO DAILY carvedilol 12.5 mg PO BID clonidine HCl 0.1 mg PO BID clopidogrel 75 mg PO DAILY diazepam 10 mg PO TID PRN mirtazapine 22.5 mg (1.5 x 15 mg) PO DAILY neomycin-polymyxin B-dexameth 3.5mg/mL-10,000 unit/mL-0.1 % drps ophthalmic (eye) ondansetron mg PO phenytoin sodium extended 100 mg PO TID simvastatin 20 mg PO BEDTIME tiotropium bromide (Spiriva with HandiHaler) 1 cap inhalation DAILY vortioxetine (Trintellix) 5 mg PO DAILY HPI- Psychiatric Chief Complaint: depression HPI Narrative: pt reports increased anxiety while she waits for biopsy of lung mass on November 20 She has intrusive thoughts about and feels anxious and fearful. Says her meds help but she still gets anxious; gets irritable when she talks about it because he is worried too. They continue to socialize with other. she is sleeping well most of the time. she does not want to increase medications. Pt reports No SI or Hi Pt reports no side effects. Past Psychiatric History: No IPLOC. anxiety started at age 3, always scared, constant worried thoughts, depression and anxiety for many years; her mother when she was 2 yo and pt had a difficult life with father and step mother intermittently being available- she and sister were frequently in foster care; pt has been in and out of treatment for years -outpatietn tx only . Subjective Subjective Subjective Medication Compliance: Yes Side effects from medications: No Review of Systems Medical Review of Systems: unchanged Mental Status Exam Mental Status Exam Patient Orientation: Person, Place, Time and Situation Level of Consciousness: Awake and Alert Patient Behavior: Appropriate and Cooperative Mood Description: Anxious and Sad Affect Description: Anxious and Sad Patient Cognition Impaired: No Ability to Follow Directions: Good Speech Pattern: Clear and Coherent Memory Description: Intact Hallucinations: None Delusions: Not Present Thought Process: Intact and Rumination Thought Content: positive for Intact and positive for Preoccupation Judgement: Good Telehealth Telehealth Telehealth Platform: Telephone Location of provider rendering services: practice address Location of patient: address on file Patient Identification confirmed using: Name, : Yes Telehealth method: voice only Patient verbally consented to treatment: Yes Patient verbally consented to billing insurance company: Yes Patient informed of any privacy concerns related to visit: Yes Minutes spent on Phone/Video with Pt.: 15 Assessment and Plan Assessment & Plan (1) Major depressive disorder, recurrent episode, moderate with anxious distress: Status: Acute Code(s): F33.1 - Major depressive disorder, recurrent, moderate (2) PTSD (post-traumatic stress disorder): Status: Acute Code(s): F43.10 - Post-traumatic stress disorder, unspecified (3) Anxiety about health: Status: Acute Code(s): R45.89 - Other symptoms and signs involving emotional state Plan no medication changes follow up in 2-4 weeks Counseling and coordination of Care Pt. Self Management counseling: Maintenance-social rhythm, Mindfulness and Cognitive restructuring Medication management counseling: Effectiveness, Side effects, Dosing range, Du ration, Drug interaction and Adherence Diagnosis and Prognosis Counseling: Accuracy of diagnosis, Prognosis over time, Impact of diagnosis on life functions and Adequacy of current interventions Details: I spent 25 minutes reviewing the record, seeing the patient and documenting in the medical record. Counseling provided to the patient/caregiver as outlined below. Addressed patient/caregiver concerns regarding current medication regime including effective adherence. Addressed patient/caregiver concerns regarding diagnosis and prognosis including accuracy of diagnosis, prognosis over time, impact of diagnosis. Addressed patient/caregiver concerns regarding impact of recent stressors. PFSH Social History: lives with ; 2 adult daughters- estranged from one Substance History: none Trauma History: foster care as child- multiple homes Coding Level of Care Code Tele Est Pt Level 3 (96208) Diagnoses Major depressive disorder, recurrent episode, moderate with anxious distress F33.1 PTSD (post-traumatic stress disorder) F43.10 Anxiety about health R45.89
== END 2024-11-14 10:18 | disposition home or self-care (01) ==
LOC: HO.HOP 10:18
PROVIDERS: PCP Internal Medicine; Visit Provider Clinical Nurse Specialist Psychiatric/Mental Health
DX: F33.1 Major depressive disorder, recurrent, moderate (principal); F43.10 Post-traumatic stress disorder, unspecified; R45.89 Other symptoms and signs involving emotional state
CPT/HCPCS: 99213

== ENCOUNTER → 2024-11-14 10:18 | Outpatient (BNVA) | payer MEDICARE, SELFPAY | PROVIDERS: PCP Internal Medicine; Visit Provider Clinical Nurse Specialist Psychiatric/Mental Health ==

== ENCOUNTER 2024-11-28 10:52 | Outpatient (AMB) | payer MEDICARE, SELFPAY ==
--- NOTE | 2024-11-28 10:33 | MHC.OFFVISPS ---
Intake Intake Visit Reasons: depression Electrical And Instrument Engineer Required: No Allergies No Known Allergies Allergy (Verified 01/30/24 12:28) Medication List - Last Reconciled 11/28/24 by Angie Neely APRN aripiprazole (Abilify) 5 mg PO DAILY carvedilol 12.5 mg PO BID clonidine HCl 0.1 mg PO BID clopidogrel 75 mg PO DAILY diazepam 10 mg PO TID PRN furosemide 20 mg PO DAILY levofloxacin mg PO mirtazapine 22.5 mg (1.5 x 15 mg) PO DAILY neomycin-polymyxin B-dexameth 3.5mg/mL-10,000 unit/mL-0.1 % drps ophthalmic (eye) ondansetron mg PO phenytoin sodium extended 100 mg PO TID prednisone 20 mg PO BID simvastatin 20 mg PO BEDTIME tiotropium bromide (Spiriva with HandiHaler) 1 cap inhalation DAILY vortioxetine (Trintellix) 5 mg PO DAILY HPI- Psychiatric Chief Complaint: depression HPI Narrative: Pt reports mood stable despite medical issues. Recently in hospital for fluid in lungs, and infection, after becoming hypoxic while playing cards as she went to the without her 02. She was sent via ambulance to [facility] on Monday.. She has been home since Monday. She had the biopsy and says she tolerated it well. She tells me the biopsy is positive and she has appt next week with oncoologist to talk about a tx plan. She is compliant w medications; She has started prednisone for 5 days and its making her anxious; she is coping well with it despite some some discomfort. no SI or HI. good family support. Past Psychiatric History: No IPLOC. anxiety started at age 3, always scared, constant worried thoughts, depression and anxiety for many years; her mother when she was 2 yo and pt had a difficult life with father and step mother intermittently being available- she and sister were frequently in foster care; pt has been in and out of treatment for years -outpatietn tx only . Subjective Subjective Subjective Medication Compliance: Yes Side effects from medications: No Review of Systems Medical Review of Systems: unchanged Mental Status Exam Mental Status Exam Patient Orientation: Person, Place, Time and Situation Level of Consciousness: Awake and Appropriate Patient Behavior: Appropriate and Cooperative Mood Description: Sad Patient Cognition Impaired: No Ability to Follow Directions: Good Speech Pattern: Clear and Appropriate Memory Description: Intact Hallucinations: None Delusions: Not Present Thought Process: Intact and Goal Oriented Thought Content: positive for Intact, positive for Goal Oriented and positive for Linear Judgement: Good Telehealth Telehealth Telehealth Platform: Telephone Location of provider rendering services: practice address Location of patient: address on file Patient Identification confirmed using: Name, : Yes Telehealth method: voice only Patient verbally consented to treatment: Yes Patient verbally consented to billing insurance company: Yes Patient informed of any privacy concerns related to visit: Yes Minutes spent on Phone/Video with Pt.: 15 Assessment and Plan Assessment & Plan (1) Anxiety about health: Status: Acute Code(s): R45.89 - Other symptoms and signs involving emotional state (2) Major depressive disorder, recurrent episode, moderate with anxious distress: Status: Acute Code(s): F33.1 - Major depressive disorder, recurrent, moderate (3) PTSD (post-traumatic stress disorder): Status: Acute Code(s): F43.10 - Post-traumatic stress disorder, unspecified Plan continue medications below follow up in 4 weeks Medications: Refilled aripiprazole (Abilify) 5 mg PO DAILY 90 tabs 1RF mirtazapine 22.5 mg (1.5 x 15 mg) PO DAILY 45 tabs 2RF diazepam 10 mg PO TID PRN 90 tabs 2RF anxiety vortioxetine (Trintellix) 5 mg PO DAILY 30 tabs 2RF Counseling and coordination of Care Pt. Self Management counseling: Maintenance-social rhythm, Med illness tx adherence, Sleep hygiene and General coping skills Medication management counseling: Effectiveness, Side effects, Dosing range, Duration, Drug interaction and Adherence Diagnosis and Prognosis Counseling: Accuracy of diagnosis, Prognosis over time, Impact of diagnosis on life functions, Impact of family relationship, Problematic behaviors secondary to diagnosis and Adequacy of current interventions Details: I spent 25 minutes reviewing the record, seeing the patient and documenting in the medical record. Counseling provided to the patient/caregiver as outlined below. Addressed patient/caregiver concerns regarding current medication regime including effective adherence. Addressed patient/caregiver concerns regarding diagnosis and prognosis including accuracy of diagnosis, prognosis over time, impact of diagnosis. Addressed patient/caregiver concerns regarding impact of recent stressors. PFSH Social History: lives with ; 2 adult daughters- estranged from one Substance History: none Trauma History: foster care as child- multiple homes Coding Level of Care Code Tele Est Pt Level 3 (37350) Diagnoses Anxiety about health R45.89 Major depressive disorder, recurrent episode, moderate with anxious distress F33.1 PTSD (post-traumatic stress disorder) F43.10
--- OUTSIDE RECORDS SUMMARY | 2024-11-28 13:02 | XMS_ITS | Clinical Summary ---
Author Organization [facility] Address [address] [place] [address] Care Team Providers Care Cotton Picking Machine Operator Name Role Phone Unknown Primary Care Provider [phone] Allergies Active Allergy Reactions Criticality Noted Date [...] age to complete this topic Care Teams Cotton Picking Machine Operator Relationship Specialty Start Date End Date Unknown Unknow Provider Address PCP - General 02/28/23
--- OUTSIDE RECORDS SUMMARY | 2024-11-28 13:02 | XMS_ITS | Encounter Summary ---
Author Organization [facility] Address [address] [place] [address] Care Team Providers Care Machine Bander And Cellophaner Helper Name Role Phone Will Monroe MD Primary Care Provider [phone] Reason for Visit * Reason Onset Date Comments surgery 10/30/2024 Hold Plavix Encounter Details Date Type Department Care Team ([facility] st Contact Info) Description 10/30/2024 Telephone Pulmonology - [place] 299 [facility] [address] [place] [address] Desi Vargas [place] surgery (Hold Plavix) Social History Tobacco Use Types Packs/Day Years Used Date Smoking Tobacco: Former Smokeless Tobacco: Never Alcohol Use Standard Drinks/Week Comments No 0 (1 standard drink = 0.6 oz pur e alcohol) Comments Unknown Sex and Gender Information Value Date Recorded Sex Assigned at Female 10/18/2024 2:01 PM EST Legal Sex Female 1:52 AM EST Gender Identity Female 10/18/2024 2:01 PM EST Sexual Orientation Straight 10/18/2024 2: 01 PM EST documented as of this encounter Progress Notes * Naldo Mcmillan MA - 10/30/2024 2:57 PM EDT Yes patient can stop plavix from a vascular standpoint for a procedure, please restart as soon as safe to do so. * Desi Vargas MA - 10/30/2024 2:48 PM EDT . documented in this encounter Plan of Treatment Upcoming Encounters Date Type Department Care Team (Late st Contact Info) Description 12/03/2024 11:10 AM EDT Office Visit Pulmonolgy - [place] 175 [facility] [address] [place] [address] Jelena Hoff NP 175 [facility] [address] [place] [address] 12/03/2024 2:30 PM EDT Office Visit Pulmonology - [place] 299 [facility] [address] [place] [address] Laura Avalos MD [address] [place] [address] 01/07/2025 1:15 PM EDT Office Visit Adult Medicine [facility] [address] [place] [phone] Will Monroe MD [address] [place] [address] 03/11/2025 11:00 AM EDT Appointment [facility] Ultrasound [address] [place] [phone] 03/26/2025 11:00 AM EDT Office Visit Vascular Surgery - [place] 300 [facility] [address] [place] [address] Krupa Garcia MD 300 [facility] [address] [place] [address] documented as of this encounter Visit Diagnoses Not on filedocumented in this encounter Additional Health Concerns Infection Onset Date Last Indicated Resolved Time Respiratory Rule-Out 11/25/2024 11/25/2024 025 5:45 PM EDT COVID-19 Rule-Out 11/25/2024 11/25/2024 11/25/2024 5:45 PM EDT documented as of this encounter Care Teams Machine Bander And Cellophaner Helper Relationship Specialty Start Date End Date Will Monroe MD [address] [place] [address] PCP - General Internal Medicine 07/08/24 documented as of this encounter
--- OUTSIDE RECORDS SUMMARY | 2024-11-28 13:02 | XMS_ITS | Encounter Summary ---
Author Organization [facility] Address [address] [place] [address] Care Team Providers Care Financial Assistance Advisor Name Role Phone Will Monroe MD Primary Care Provider [phone] Reason for Referral * Home Health (Routine) - Closed Specialty Diagnoses / Procedures Referred By Charlotte delvalle Referred To Contact Home Health Services Diagnoses Chronic obstructive pulmonary disease with acute exacerbation (CMS/HCC V24, CMS/HCC V28) Baljeet Franco MD [address] [place] [address] Phone: tel: fax: [employer] [facility] [address] [place] [id number] Phone: tel: fax: Referral ID Status Reason Start Date Expiration Date V isits Requested Visits Authorized [id number] Closed Consult and Treat 11/26/2024 11/26/2025 1 1 Reason for Visit * Reason Comments Shortness of Breath * Auth/Cert Specialty Diagnoses / Procedures Referred By Charlotte delvalle Referred To Contact Diagnoses Acute respiratory failure with hypoxia and hypercapnia (CMS/HCC V24, CMS/HCC V28) Procedures . Dl Sanchez, DO [address] [place] [address] Phone: tel: fax:[phone] [facility] Emergency [address] [place] [address] Phone: tel: Referral ID Status Reason Start Date Expiration Date Visits Re quested Visits Authorized [id number] 1 1 Encounter Details Date Type Department Care Team (Late st Contact Info) Description 11/25/2024 3:18 PM EDT - 11/26/2024 6:21 PM EDT Hospital Encounter [facility] Intermediate Care Unit [address] [place] [address] Sheldon Anthony MD [address] [place] [address] Dl Sanchez DO [address] [place] [address] Ko Motta MD [address] [place] [address] Baljeet Franco MD [address] [place] [address] Acute respiratory failure with hypoxia and hypercapnia (CMS/HCC V24, CMS/HCC V28) (Primary Dx); Acute pulmonary edema (CMS/HCC V24, CMS/HCC V28); COPD exacerbation (CMS/HCC V24, CMS/HCC V28); Hypertensive emergency; Stage 3 chronic kidney disease, unspecified whether stage 3a or 3b CKD (CMS/HCC V24, CMS/HCC V28); Chronic obstructive pulmonary disease with acute exacerbation ([facility] V24, CMS/HCC V28) Discharge Disposition: Home or Self Care Social History Tobacco Use Types Packs/Day Years Used Date Smoking Tobacco: Former Smokeless Tobacco: Current Alcohol Use Standard Drinks/Week Comments No 0 (1 standard drink = 0.6 oz pur e alcohol) Interpersonal Safety Answer Date Record ed Physical Abuse 11/25/2024 Verbal Abuse 11/25/2024 Comments No Sex and Gender Information Value Date Recorded Sex Assigned at Female 10/18/2024 2:01 PM EST Legal Sex Female 1:52 AM EST Gender Identity Female 10/18/2024 2:01 PM EST Sexual Orientation Straight 10/18/2024 2: 01 PM EST documented as of this encounter Last Filed Vital Signs Vital Sign Reading Time Taken Comments Blood Pressure 154/65 11/26/2024 3:48 PM EDT Pulse 77 11/26/2024 3:48 PM EDT Temperature 36.3 ??C (97.4 ??F) 11/26/2024 3:48 PM ED T Respiratory Rate 18 11/26/2024 3:48 PM EDT Oxygen Saturation 96% 11/26/2024 4:25 PM EDT Inhaled Oxygen Concentration - - Weight 77.6 kg (171 lb) 11/26/2024 11:26 AM EDT Height 162.6 cm (5' 4 ) 11/26/2024 11:26 AM EDT Body Mass Index 29.35 11/26/2024 11:26 AM EDT documented in this encounter Discharge Summaries * Baljeet Franco MD - 11/26/2024 1:57 PM EDT Images from the original note were not included. HOSPITAL MEDICINE DISCHARGE SUMMARY Patient Information Rita Draper : 1950 [74 y.o.] Admitting Provider Dl Sanchez DO Discharge Provider Baljeet Franco MD Primary Care Physician Will Monroe MD Admission Date 11/25/2024 Discharge Date 11/26/2024 Summary of Hospital Problems Primary Discharge Diagnosis: Acute respiratory failure with hypoxia and hypercapnia Secondary Discharge Diagnosis: Discharge Disposition Home or Self Care Code Status at Discharge: Full Code - Confirmed Hospital Course Summary Presenting Problem/History of Present Illness Acute pulmonary edema (CMS/HCC) [J81.0] COPD exacerbation (CMS/HCC) [J44.1] Hypertensive emergency [I16.1] Acute respiratory failure with hypoxia and hypercapnia [J96.01, J96.02] Chief Complaint Patient presents with Shortness of Breath HPI From H&P by SALINA Liu: 74 year-old female with past medical history significant for hypertension, hyperlipdiemia, COPD on 2L NC, and further history below presents with shortness of breath. Today while at the [facility], the pt walked to the bathroom without wearing her oxygen supplementation. On the way back to her seat, she became significantly short of breath. Her pulse ox was checked and it was 54% and she was told she was turning blue therefore EMS was called. She states she does not remember anything after that, including EMS, ambulance transport, and ED course. Pt states that recently she feels as if her baseline of 2L NC is not enough and she has been wanting to increase it. She reports feeling short of breath with palpitations when walking up the stairs to go to the bathroom at home. Pt underwent a lung nodule biopsy last week and is still awaiting her results. Pt endorses chronic nausea and abdominal pain secondary to anxiety. Otherwise, pt denies chest pain, fevers, chills, vomiting, diarrhea, constipation, abdominal pain, dysuria, hematuria hematochezia. Update: a few hours after initial evaluation, pt stated she was having some abdominal pain in the left lower quadrant/suprapubic area. She states the pain initially began after barr insertion. Upon EMS arrival, pt was found to be in the 50s spO2 on 2L NC. She was placed on CPAP, given Solu-Medrol 125 mg, and DuoNebs x3. In the ED, pt arrived with spO2 in the 80s and was placed on BiPAP. She was hypertensive with a systolic of 230 and was placed on a nitroglycerin drip. ED provider performed a bedside ultrasound and found bilateral lung sliding with diffuse B-lines conerning for pulmonary edema and she was given combined 80 mg IV Lasix. Pt also received 2 g IV Ceftriaxone, 4 mg IV Zofran, and 10 mg IV Reglan. She had a barr catheter placed. Initially, pt was admitted to the ICU service where she she was weaned off the Nitro drip, started on Levaquin, and given 40 mg IV Solu-Medrol. Pt was able to switch to high flow from BiPAP and then weaned off onto her baseline 2L NC. Pt improved significantly and was transferred to [place] service. Upon H&P, pt is afebrile, HR 87, RR 20, BP 135/81, spO2 98% 2L NC. Labs: WBC 13.7, BUN 1.14, GFR 50, AST 60, ALT 174, lactate 1.6, troponins 55, 212, BNP 109. InitialVBG: pH 7.12, CO2 82, O2 77, HCO3 20.8. Repeat ABG: pH 7.35, CO2 49, O2 56, HCO3 25.2. Viral panel negative. UA negative for infection. EKG: normal sinus rhythm, 91 bpm, no acute ischemic changes CXR: Normal heart size. Increased interstitial opacities suggestive of vascular congestion/overload. Superimposed infectious/inflammatory process could also be considered. No significant pleural effusion. No pneumothorax. Hospital Course 74-year-old female with PMH of HTN, hyperlipidemia, COPD on 2 L home oxygen. Patient presented to ED due to acute respiratory failure. Patient became hypoxic after she walked to the bathroom without her oxygen. Prior to this patient says she was feeling well, no recent illnesses, no fever, chills, nasal congestion. 1. Acute on chronic respiratory failure with hypoxia Likely secondary to COPD exacerbation plus component of pulmonary edema. Patient was given IV Lasix, breathing treatment, started on ceftriaxone. She was briefly put on high flow oxygen and was weaned to nasal cannula oxygen 4 L. Prior to discharge home oxygen evaluation was done and patient requires 2 L oxygen with exertion. 2. COPD with exacerbation Initial blood gas showed pH of 7.12, CO2 of 82. Patient is oxygen dependent at baseline, still smoking. She complained of shortness of breath when she was out playing cards at [employer] and then went to the bathroom without her oxygen. Continues with albuterol, Spiriva, Advair Diskus. I startedpatient on prednisone 40 mg daily x 5 days and antibiotic coverage with levofloxacin. Respiratory vi ral panel was negative and blood culture negative to date. 3. Hypertensive urgency Initial BP 200/121 mmHg for which patient received oral and IV nitroglycerin, IV Lasix. She was continued on her usual home BP medications of carvedilol, clonidine and BP improved significantly. 4. Pulmonary edema Likely secondary to hypertensive crisis. Chest x-ray x 2 showed interstitial edema. Patient received IV furosemide. Continue to oral furosemide 40 mg daily. 5. Elevated creatinine/CARLOS Admission creatinine of 1.14 but prior to this creatinine was 0.9. Creatinine increased to 1.3 withrepeat BMP prior to discharge stable at 1.3. Outpatient BMP ordered and recommend follow-up with PCP. 6. Lung nodule/small cell lung cancer Patient had recent robotic assisted bronchoscopy on 11/20 with transbronchial fine-needle aspiration and biopsies of right upper lobe and left lower lobe lesion and BAL. Pathology result positive for small cell lung cancer. This was communicated by district commercial superintendent and patient was informed. He will arrange for follow-up with oncology and present to tumor board meeting. Operative Procedures Performed: Consults: none LABS/IMAGING Transthoracic echocardiogram (TTE) complete with PRN contrast, bubble, strain, and 3D order panel Result Date: 11/26/2024 Somewhat technically limited study. But the study appears to be normal with normal LV wall thickness and internal chamber dimensions. Normal systolic and diastolic function. EF in the range of 60%. Normal RV size and function. Normal left and right atrium. Mild aortic insufficiency and trace mitralinsufficiency. The CVP is estimated to be normal. No prior echo for comparison. XR Chest 1 View Result Date: 11/26/2024 EXAMINATION: CHEST CLINICAL INFORMATION: Respiratory failure COMPARISON: Frontal view 11/25/24 TECHNIQUE: Portable upright frontal view of the chest FINDINGS: Devices overlie the patient. Calcificationof the aortic arch. The cardiac size is within normal limits. The central vessels are prominent andmildly indistinct. There is no alveolar edema. There are interstitial opacities which may be minimally improved. No new dense focal area of pneumonia. Metallic linear densities project in the right hilum and left midlung. This could be iatrogenic. No pneumothorax or focal bony lesion. Previous chest CT has demonstrated a suspicious nodule in the right upper lobe. Additional nodules present. Interstitial prominence. No acute focal pneumonia. -------- FINAL REPORT -------- Dictated By: Dk Navarrete Dictated Date: 11/26/2024 08:15 ET Assigned Physician: Dk Navarrete Reviewed and Electronically Signed By: Dk Navarrete Signed Date: 11/26/2024 08:20 ET Workstation ID: [id number] Transcribed By: Self Edit Transcribed Date: 11/26/2024 08:15 ET XR Chest 1 View Result Date: 11/25/2024 XR CHEST 1 VIEW INDICATION: dyspnea TECHNIQUE: XR CHEST 1 VIEW COMPARISON: No priors available. FINDINGS/IMPRESSION: Normal heart size. Increased interstitial opacities suggestive of vascular congestion/overload. Superimposed infectious/inflammatory process could also be considered. No significant pleural effusion. No pneumothorax. -------- FINAL REPORT -------- Dictated By: Hosea Velez Dictated Date: 11/25/2024 17:06 ET Assigned Physician: Hosea Velez Reviewed and Electronically Signed By:Hosea Velez Signed Date: 11/25/2024 17:07 ET Workstation ID: [id number] Transcribed By: Self Edit Transcribed Date: 11/25/2024 17:06 ET Lab Results Component Value Date INR 0.9 11/13/2024 Lab Results Component Value Date NA 137 11/26/2024 K 4.3 11/26/2024 CL 100 11/26/2024 CO2 32 11/26/2024 GLUCOSE 141 (H) 11/26/2024 BUN 28 (H) 11/26/2024 CREATININE 1.31 (H) 11/26/2024 CALCIUM 9.4 11/26/2024 PROT 7.6 11/25/2024 ALBUMIN 3.6 11/25/2024 BILITOT 0.3 11/25/2024 AST 60 (H) 11/25/2024 ALT 39 11/25/2024 PHOS 2.6 11/26/2024 MG 2.0 11/26/2024 ALKPHOS 174 (H) 11/25/2024 EGFR 42 (L) 11/26/2024 Lab Results Component Value Date WBC 7.3 11/26/2024 HGB 13.1 11/26/2024 HCT 40.0 11/26/2024 MCV 97.8 11/26/2024 PLT 137 11/26/2024 Discharge Medications Your medication list START taking these medications Instructions Last Dose Given Next Dose Due furosemide 20 mg tablet Commonly known as: LASIX Take 1 tablet (20 mg total) by mouth 1 (one) time each day. levoFLOXacin 750 mg tablet Commonly known as: LEVAQUIN Start taking on: November 27, 2024 Take 1 tablet (750 mg total) by mouth every other day for 4 days. nicotine 14 mg/24 hr Commonly known as: NICODERM CQ Start taking on: November 27, 2024 Place 1 patch on the skin 1 (one) time each day. predniSONE 20 mg tablet Commonly known as: DELTASONE Start taking on: November 27, 2024 Take 2 tablets (40 mg total) by mouth 1 (one) time each day for 5 doses. CONTINUE taking these medications Instructions Last Dose Given Next Dose Due albuterol 2.5 mg /3 mL (0.083 %) nebulizer solution Take 1 Vial by nebulization every 6 hours as needed for Wheezing or Shortness of Breath for up to 180 days. albuterol HFA 90 mcg/actuation inhaler Commonly known as: PROAIR HFA ; PROVENTIL HFA ; VENTOLIN HFA Inhale 2 Puffs into the lungs every 4 hours as needed for Cough or Wheezing. ARIPiprazole 2 mg tablet Commonly known as: ABILIFY Take 2.5 tablets (5 mg total) by mouth 1 (one) time each day. carvediloL 12.5 mg tablet Commonly known as: COREG Take 1 Tablet by mouth 2 times daily. cloNIDine 0.1 mg tablet Commonly known as: CATAPRES Take 1 Tablet by mouth 2 times daily. clopidogreL 75 mg tablet Commonly known as: PLAVIX TAKE ONE TABLET DAILY diazePAM 10 mg tablet Commonly known as: VALIUM Take 1 Tablet by mouth every 8 hours as needed for Anxiety. diclofenac 1 % topical gel Commonly known as: VOLTAREN Apply 4 g topically 4 times daily. docusate sodium 100 mg capsule Commonly known as: COLACE Take 1 Cap by mouth 2 times daily for 30 days. fluticasone propionate 50 mcg/actuation nasal spray Commonly known as: FLONASE Administer 2 sprays into each nostril 1 (one) time each day. Shake gently. Before first use, prime pump. After use, clean tip and replace cap. fluticasone-salmeterol 250-50 mcg/dose diskus inhaler Commonly known as: ADVAIR DISKUS Inhale 1 puff by mouth 2 (two) times a day. Inhale 1 Puff into the lungs 2 times daily. Humira(CF) Pen 40 mg/0.4 mL pen Generic drug: adalimumab Inject 40 mg into the skin every 14 days for 28 days. mirtazapine 15 mg tablet Commonly known as: REMERON Take 1.5 tablets (22.5 mg total) by mouth at bedtime. ondansetron ODT 4 mg disintegrating tablet Commonly known as: ZOFRAN-ODT Take 1 Tablet by mouth every 8 hours as needed for Nausea. phenytoin 100 mg ER capsule Commonly known as: DILANTIN Take 1 capsule (100 mg total) by mouth 2 (two) times a day. Restasis MultiDose 0.05 % drops Generic drug: cycloSPORINE PLACE ONE DROP IN EACH EYE TWICE DAILY Saline Nasal (aloe vera) gel topical gel Generic drug: sodium chloride-aloe vera Apply 1 Application to affected nostril(s) if needed (nasal dryness). simvastatin 20 mg tablet Commonly known as: ZOCOR Take 1 tablet (20 mg total) by mouth at bedtime. at bedtime. tiotropium 18 mcg per inhalation capsule Commonly known as: Spiriva with HandiHaler Place 1 capsule (18 mcg total) into inhaler and inhale 1 (one) time each day. Trintellix 5 mg tablet Generic drug: vortioxetine Take 1 tablet (5 mg total) by mouth 1 (one) time each day. Where to Get Your Medications These medications were sent to [facility] - [place], [place] - [address] [facility] [address] furosemide 20 mg tablet levoFLOXacin 750 mg tablet nicotine 14 mg/24 hr predniSONE 20 mg tablet Follow-Up Instructions and Recommendations No follow-up provider specified. Discharge Procedure Orders Basic metabolic panel Standing Status: Future Standing Exp. Date: 11/26/25 There are no outpatient Patient Instructions on file for this admission. Outpatient Follow-Up Future Appointments Date Time Provider Department Center 12/03/2024 11:10 AM [facility] 12/03/2024 2:30 PM Laura Avalos MD [facility] 01/07/2025 1:15 PM Will Monroe MD [facility] 03/11/2025 11:00 AM [facility] 2 [facility] 03/26/2025 11:00 AM Krupa Garcia MD [facility] 210 [facility] - 300 @DCLABSOTHER@ Test Results Pending at Discharge Pending Labs Order Current Status Blood Culture, Peripheral Draw #1 Preliminary result Blood Culture, Peripheral Draw #2 Preliminary result Physical Exam at time of Discharge Vitals Visit Vitals BP (!) 142/71 (BP Location: Left arm, Patient Position: Lying) Pulse 68 Temp 36.6 ??C (97.9 ??F) (Temporal) Resp 18 Temp (24hrs), Av.5 ??C (97.7 ??F), Min:36.3 ??C (97.4 ??F), Max:36.6 ??C (97.9 ??F) Body mass index is 29.35 kg/m??. No results found for: PTWT , PTHT Physical Exam Vitals and nursing note reviewed. Constitutional: Appearance: Normal appearance. HENT: Head: Normocephalic and atraumatic. Nose: Nose normal. Eyes: Extraocular Movements: Extraocular movements intact. Pupils: Pupils are equal, round, and reactive to light. Cardiovascular: Rate and Rhythm: Normal rate and regular rhythm. Pulmonary: Effort: Pulmonary effort is normal. Breath sounds: Examination of the right-middle field reveals wheezing. Examination of the left-middle field reveals wheezing. Wheezing (minimal wheezing) present. No rales. Abdominal: General: Abdomen is flat. There is no distension. Palpations: Abdomen is soft. There is no mass. Tenderness: There is no abdominal tenderness. Skin: General: Skin is warm and dry. Neurological: General: No focal deficit present. Mental Status: She is alert and oriented to person, place, and time. Mental status is at baseline. I spoke with the patient regarding the discharge plan. The discharge plan was discussed with case management and nursing staff. Patient verbalized understanding and was agreeable with the discharge plan. Total Time Spent on Discharge Process: Greater than 30 minutes. Time was spent educating patient, making a comprehensive discharge plan, discussion with staff regarding the discharge plan, medication reconciliation and discharge summary. Baljeet Franco MD 11/26/2024 2:34 PM EDT documented in this encounter Discharge Instructions * Attachments The following attachments cannot be sent through Care Everywhere. * COPD: Exacerbation (M[place]ese) documented in this encounter Medications at Time of Discharge nicotine (NICODERM CQ) 14 mg/[address] 1 patch on the skin 1 (one) time each day. 30 each 5 12/28/19 25 predniSONE (DELTASONE) 20 mg tablet Take 2 tablets (40 mg total) by mouth 1 (one) time each day for 5 doses. 10 each 5 12/03/19 25 adalimumab (Humira,CF, Pen) 40 mg/0.4 mL pen [...] 3 ARIPiprazole (ABILIFY) 2 mg tablet Take 2.5 tablets (5 mg total) by mouth 1 (one) time each day. clopidogreL (PLAVIX) 75 mg tablet TAKE ONE [...] diskus inhalerIndications: Pulmonary emphysema, unspecified emphysema type (CMS/HCC V24, CMS/HCC V28) Inhale 1 puff by mouth 2 (two) times a day. Inhale 1 Puff into the lungs 2 times daily. 3 each 3 5 furosemide (LASIX) 20 mg tablet Take 1 tablet (20 mg total) by mouth 1 (one) time each day. 30 each 5 12/27/19 25 levoFLOXacin (LEVAQUIN) 750 mg tablet Take 1 tablet (750 mg total) by mouth every other day for 4 days. 2 each 5 12/02/19 25 mirtazapine (REMERON) 15 mg tablet Take 1.5 tablets (22.5 mg total) by mouth at bedtime. 4 phenytoin (DILANTIN) 100 mg ER capsuleIndications: Seizure disorder ([facility] V24, [facility] V28) Take 1 capsule (100 mg total) by [...] inhalation capsuleIndications: Pulmonary emphysema, unspecified emphysema type ([facility] V24, [facility] V28) Place 1 capsule (18 mcg total) into inhaler and inhale 1 (one) time each day. 3 each 3 5 Trintellix 5 mg tablet Take 1 tablet (5 mg total) by mouth 1 (one) time each day. 5 carvediloL (COREG) 12.5 mg tablet Take 1 Tablet by mouth 2 times daily. 4 11/29/19 25 cloNIDine (CATAPRES) 0.1 mg tablet Take 1 Tablet by mouth 2 times daily. 4 11/29/19 25 ondansetron ODT (ZOFRAN-ODT) 4 mg disintegrating tablet Take 1 Tablet by mouth every 8 hours as needed for Nausea. 4 11/29/19 25 documented as of this encounter Ordered Prescriptions Prescription Sig Dispense Quantity Refills Last Filled Start Date End Date levoFLOXacin (LEVAQUIN) 750 mg tablet Take 1 tablet (750 mg total) by mouth every other day for 4 days. 2 each 11/27/2024 5 furosemide (LASIX) 20 mg tablet Take 1 tablet (20 mg total) by mouth 1 (one) time each day. 30 each 11/26/2024 5 predniSONE (DELTASONE) 20 mg tablet Take 2 tablets (40 mg total) by mouth 1 (one) time each day for 5 doses. 10 each 11/27/2024 5 nicotine (NICODERM CQ) 14 mg/[address] 1 patch on the skin 1 (one) time each day. 30 each 11/27/2024 5 documented in this encounter Discharge Disposition Disposition Code Departure Means Destination Comment s Home or Self Care Wheelchair documented in this encounter Progress Notes * Laura Sheehan RN - 11/26/2024 4:44 PM EDT 11/26/24 1644 Initial Transition Plan Initial Transition Plan Home Health Care Transportation Transportation at discharge Family What day is the transport expected? 11/26/24 Final Discharge Disposition Home Health Care Services [facility] met w/ Pt and at bedside, they requested VNA referral, initiated and updated provider. Pt's will bring up their portable O2 ([employer]) in preparation for MAGGI home. VNA referral accepted by [employer], confirmed by [facility]. * Gina Elizabeth RRT - 11/26/2024 4:32 PM EDT 11/26/24 1600 Qualify for Home O2 On at rest Room air SpO2 at rest 91 % On with exertion Room air SpO2 w/ exertion 86 % Amount of exertion time walked 4 Minutes Patient mobile at home? Yes 2L with exertion needed for pt to maintain above 88% Pt qualifies for home O2, pt stated she already has an O2 concentrator at home and usually wears 2Lwhile walking. * Laura Sheehan RN - 11/26/2024 3:22 PM EDT 11/26/24 1522 Initial Transition Plan Initial Transition Plan Home Transportation What day is the transport expected? 11/26/24 Final Discharge Disposition Home or Self Care Pt D/C by provider before ICC could complete assessment and according to D/C summary, patient verbalized understanding and was agreeable with the discharge plan. * Laura Sheehan RN - 11/26/2024 3:20 PM EDT Per initial ICC EMR review: Barriers per H&P: hypoxic on 2L NC [employer] and TX w/ CPAP, IV Solumedrol, Duonebs [employer]. In ED: BiPAPinitiated and titrated to HF, HTN TX w/ nitro gtt and weaned, IV Lasix, IV abx, F/C , Echo, elevated Trops, cards consult pending. Dispo: from home, return once medically cleared. * Jessica Miles RN - 11/25/2024 8:25 PM EDT Pt taken off high flow NC and placed on standard NC at 2L. SpO2 sustaining at 96%. * Jessica Miles RN - 11/25/2024 8:19 PM EDT Per provider - holding lovenox and plavix tonight first dose will be tomorrow 0900. Pt took her Plavix this morning. This has been documented in the MAR * Jessica Miles RN - 11/25/2024 8:07 PM EDT ED RN HANDOFF (All Bowman Below Must Be Completed) Reason/Diagnosis for Admission: HYPOXIA HYPERCAPNIA Type of Admission: [] Medsurg, [x] Telemetry Already in a Hospital Bed: [] Yes / [x] No Room Considerations/Precautions (ex: fever, diarrhea, or any infectious concerns): [] Yes / [x] No Wrapper Stemmer Operator: [x] Yes / [] No If YES, Cardiac Rhythm: [x] NSR, [] SB, [] ST, [] A-FIB, [] A-Flutter, [] Pacemaker, [] 1st Degree HB, [] 2nd Degree HB, [] 3rd Degree HB Reason for Wrapper Stemmer Operator: HYPOXIA VS: Visit Vitals BP 115/68 Pulse 83 Temp 36.5 ??C (97.7 ??F) (Axillary) Resp 12 Ht 1.626 m (64 ) Wt 70.3 kg (155 lb) LMP (LMP Unknown) SpO2 98% BMI 26.61 kg/m?? OB Status Postmenopausal Smoking Status Former BSA 1.76 m?? Current Mental Status: A/O x [x]4, []3, []2, []1 Current Ambulation Status: UNKNOWN IV Access: [x] Yes / [] No Field IV present: [x] Yes / [] No Hx of Violence: [] Yes / [x] No / [] Unknown Fall Risk:[x] Yes / [] No Yellow Bracelet Applied [x] Yes / [] No Yellow Socks Applied [x] Yes / [] No Patient Belongings inventoried and BL completed: [x] Yes / [] No Patient belongings stored in the security closet: [] Yes (If Yes please supply Security bag #): [x] No Patient Medications stored in Pharmacy: [] Yes (If Yes please supply Medication Security bag #): [x] No ED Summary of Care: Pt on high flow NC with an spO2 of 96%, downgraded from BIPAP mask. Lung soundswheezy throughout. Lovenox / Plavix ordered for tonight however provider questioned on whether these should be given as she took her plavix this morning - awaiting response. Valium given by this RN pt states she takes it three times a day and has been for years. Hypertensive initially nitro drip started however this has been discontinued as pressures have stabilized. Latest pressure is 121/61. A/Ox4. Submitted by and Phone Extension: Jessica Miles in [employer] [facility] * Jessica Miles RN - 11/25/2024 7:49 PM EDT NURSING SWALLOW SCREEN Exclusing Criteria: (choose one) exclusion criteria: No Risk Factors (Not to be used for Stroke pts) Please Note: Only proceed with screen if 'No exclusion criteria' is selected. If 'no risk factors' selected proceed with diet per order. This is for someone with No aspiration risk factor. Stroke pts ARE a risk factor. If any exclusion criteria selected (except for 'No Risk Foctors' or 'No Exclusion Criteria') order Swallowing Evaluation /FEES by Speech /Language Pathologist. Screen may be repeated if patient shows clinical improvement (Clinical improvement is defined as patient not showing signs of any exclusion criteria. Assessment (3 oz Water Swallow Challenge): Pass/Fail: Pass Perform Water Swallow Challenge and Document Pass/Fail Instructions for completing water swallow challenge >Sit patient upright 80-90 degrees > Patients with HOB elevated 30-80 degrees are eligible for aspiration screen >Ask patient to drink 3 oz water (90 ml) from cup or through straw in sequential swallows without stopping (cup or straw can be held by patient or staff) >Assess for coughing, choking, or cleonng throat during swallowing immediately after completion of drinking Pass: Able to drink 3 ounces of i-rater with sequential swallows without coughing, clearing throat,or change in vocal quality during and / or immediately after. Notify MD of results and obtain diet order Fail: Inability to perform sequential swallows Cough, clearing throat, or change in vocal quality during and/or immediately after drinking. Notify MD of results Keep NPO including medication. Order Swallov Evaluation / FEES by Speech / Language Pathologist. Jessica Miles RN * Jessica Miles RN - 11/25/2024 3:18 PM EDT EMS REPORT: coming from a gathering at the [facility] and became SOB all of a sudden - unknown if eating prior to this. Cyanotic bent over a chair room spO2 52%, high flow NC then BIPAP. three duoneb given, 125 mg of solumedrol given. 2g of mag given by EMS. Two 18 G placed by EMS. * Sheldon Anthony MD - 11/25/2024 3:16 PM EDTAssociated Order(s): Critical Care Emergency Medicine Note Patient Name: Rita Draper Initial Evaluation: 11/25/2024 : 1950 Patient's PCP: Will Monroe MD Emergency Physician: Sheldon Anthony MD History of Present Illness Chief Complaint: Chief Complaint Patient presents with Shortness of Breath HPI: 74-year-old female with a past medical history as below now presents with a chief complaint of shortness of breath. Patient reports that she has been having progressively worsening shortness of breath; for the last few days now. However she was able to tolerate, however today acutely she began to have shortness of breath with wheezing. She reports no fevers or chills. She denies any complaints ofchest pain. She denies any complaints of abdominal pain. She does report mild nausea. EMS and foundher to be lethargic, was saturating 50% on 2 L of nasal cannula oxygen, immediately placed on CPAP,given Solu-Medrol 125 mg, as well as albuterol ipratropium x 3 en route[address] 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 Updated stable 12/01/17: No significant right internal carotid stenosis by Doppler 03/13/2018: CKD (chronic kidney disease) stage 3, GFR 30-59 ml/min ([facility]) Comment: DX:CKD (chronic kidney disease) stage 3, GFR 30-59 ml/min ([facility]) 07/24/2017: COPD (chronic obstructive pulmonary disease) ([facility]) Comment: DX:COPD (chronic obstructive pulmonary disease) (HCC); COMMENT: Chronic bronchitis 07/24/2017: Depression Comment: DX:Depression 11/22/2017: Dermatochalasis of both upper eyelids Comment: DX:Dermatochalasis of both upper eyelids; COMMENT: Severe bilateral senile ptosis, 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 07/24/2017: Facial palsy Comment: DX:Facial palsy; COMMENT: Secondary to traumatic head injury, fall on R side. 04/10/2019: GERD (gastroesophageal reflux disease) Comment: DX:GERD (gastroesophageal reflux disease) 07/24/2017: Headache Comment: DX:Headache; COMMENT: Intractable chronic post-traumatic h/a. 07/24/2017: History of stroke Comment: DX:History of stroke; COMMENT: Apr 2014 and December 2015. Aphasia and RUE weakness, resolved. On Plavix 07/24/2017: History of tobacco use Comment: DX:History of tobacco use 07/24/2017: HTN (hypertension) Comment: DX:HTN (hypertension) 03/13/2018: Hyperlipidemia Comment: DX:Hyperlipidemia 03/08/2018: Irritable bowel syndrome Comment: DX:Irritable bowel syndrome No date: Lung nodule 03/13/2018: Multilevel degenerative disc disease Comment: DX:Multilevel degenerative disc disease 11/22/2017: Nuclear sclerosis of both eyes Comment: DX:Nuclear sclerosis of both eyes No date: Oxygen dependent Comment: 2 lpm when active 07/08/2020: Psoriasis Comment: DX:Psoriasis 03/13/2018: Renal calculi Comment: DX:Renal calculi; COMMENT: Right, small and nonobstructing 07/24/2017: Seizure disorder (CMS/HCC) Comment: DX:Seizure disorder (HCC); COMMENT: 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 On Dilantin 07/24/2017: Thrombocytopenia (CMS/HCC) Comment: DX:Thrombocytopenia (HCC) 07/24/2017: Vitamin D deficiency Comment: DX:Vitamin D deficiency History provided by: Patient ROS: I have performed a ROS with the pertinent positives and negatives documented in the history ofpresent illness. 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 Updated stable 12/01/17: No significant right internal carotid stenosis by Doppler CKD (chronic kidney disease) stage 3, GFR 30-59 ml/min ([facility]) 03/13/2018 DX:CKD (chronic kidney disease) stage 3, GFR 30-59 ml/min ([facility]) COPD (chronic obstructive pulmonary disease) ([facility]) 07/24/2017 DX:COPD [...] eyes 11/22/2017 DX:Nuclear sclerosis of both eyes Oxygen dependent 2 lpm when active Psoriasis 07/08/2020 DX:Psoriasis Renal calculi 03/13/2018 DX:Renal calculi; COMMENT: Right, small and nonobstructing Seizure disorder ([facility]) 07/24/2017 DX:Seizure disorder ([facility]); COMMENT: 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 On Dilantin Thrombocytopenia ([facility]) 07/24/2017 DX:Thrombocytopenia ([facility]) Vitamin D deficiency 07/24/2017 DX:Vitamin D deficiency Past Surgical History: Procedure Laterality Date APPENDECTOMY PROCEDURE: HISTORICAL APPENDECTOMY; COMMENT: age 10 BLEPHAROPLASTY DENTAL SURGERY wears partial bridge per pt OOPHORECTOMY Right PROCEDURE: HISTORICAL OOPHORECTOMY; COMMENT: partial OTHER SURGICAL HISTORY Left 09/2016 PROCEDURE: OK OPTX ILIAC TUBRST AVLS/WING FX FIXJ IF PRFRMD; COMMENT: s/p pelvic repair, [place]'s TONSILLECTOMY PROCEDURE: HISTORICAL TONSILLECTOMY UPPER GASTROINTESTINAL ENDOSCOPY 10/03/2018 PROCEDURE: UPPER GI ENDOSCOPY/EXAM; COMMENT: mild edema UPPER GASTROINTESTINAL ENDOSCOPY 02/13/2019 PROCEDURE: UPPER GI ENDOSCOPY/EXAM; COMMENT: non specific edema, biopsy pending Social History Tobacco Use Smoking status: Former Smokeless tobacco: Current Substance Use Topics Alcohol use: No Drug use: No Family History Problem Relation Name Age of Onset Coronary artery disease Mother at 32 Hypertension Father Chronic Lung Disease, depression/anxiety, glaucoma, arthritis Blindness Father Cataracts Father Glaucoma Father Arthritis Father Asthma Sister Chronic Lung Disease, RA Arthritis Sister No Known Problems Aunt No Known Problems Uncle No Known Problems Other Macular degeneration Neg Hx Strabismus Neg Hx is allergic to aspirin, azithromycin, latex, penicillins, sulfa (sulfonamide antibiotics), and tetracycline. No current facility-administered medications on file prior to encounter. Current Outpatient Medications on File Prior to Encounter Medication Sig Dispense Refill adalimumab (Humira,CF, Pen) [...] Wheezing. ARIPiprazole (ABILIFY) 2 mg tablet Take 2.5 tablets (5 mg total) by mouth 1 (one) time each day. carvediloL (COREG) 12.5 mg tablet Take 1 [...] Apply 4 g topically 4 times daily. docusate sodium (COLACE) 100 mg capsule Take [...] times daily. 3 each 3 mirtazapine (REMERON) 15 mg tablet Take 1.5 tablets (22.5 mg total) by mouth at bedtime. ondansetron ODT (ZOFRAN-ODT) 4 mg disintegrating tablet [...] by mouth 1 (one) time each day. Physical Exam ED Triage Vitals Temp Heart Rate Resp BP 11/25/24 1608 11/25/24 1532 11/25/24 1532 11/25/24 153 36.5 ??C (97.7 ??F) 97 (!) 32 (!) 200/121 SpO2 Temp Source Heart Rate Source Patient Position 11/25/24 1532 11/25/24 1608 11/25/24 1532 11/25/24 1532 90 % Axillary Monitor Sitting BP Location FiO2 (%) 11/25/24 1532 11/25/24 1535 Left arm 30 % Physical Exam Constitutional: General: She is in acute distress. Appearance: Normal appearance. She is well-developed. She is ill-appearing and toxic-appearing. HENT: Head: Normocephalic and atraumatic. Mouth/Throat: Mouth: Mucous membranes are moist. Eyes: Extraocular Movements: Extraocular movements intact. Conjunctiva/sclera: Conjunctivae normal. Cardiovascular: Rate and Rhythm: Normal rate and regular rhythm. Pulmonary: Effort: Tachypnea, accessory muscle usage and respiratory distress present. Breath sounds: Examination of the right-upper field reveals decreased breath sounds, wheezing and rales. Examination of the left-upper field reveals decreased breath sounds, wheezing and rales. Examination of the right-middle field reveals decreased breath sounds, wheezing and rales. Examination ofthe left-middle field reveals decreased breath sounds, wheezing and rales. Examination of the right-lower field reveals decreased breath sounds, wheezing and rales. Examination of the left-lower field reveals decreased breath sounds, wheezing and rales. Decreased breath sounds, wheezing and rales present. Abdominal: General: There is no distension. Palpations: Abdomen is soft. Tenderness: There is no abdominal tenderness. Musculoskeletal: General: No deformity. Normal range of motion. Cervical back: Normal range of motion and neck supple. Right lower leg: Edema present. Left lower leg: Edema present. Comments: Bilateral 2+ pitting edema. Skin: General: Skin is warm. Capillary Refill: Capillary refill takes less than 2 seconds. Neurological: General: No focal deficit present. Mental Status: She is alert and oriented to person, place, and time. Mental status is at baseline. Results Labs Reviewed VENOUS BLOOD GAS - Abnormal Result Value pH, Cameron 7.12 (*) pCO2, Cameron 82 (*) pO2, Cameron 77 (*) HCO3, Venous 20.8 (*) O2 Sat, Cameron 95.7 Base Excess, Cameron -5.1 (*) CBC WITH AUTO DIFFERENTIAL - Abnormal WBC 13.7 (*) RBC 4.70 Hemoglobin 15.0 Hematocrit 46.5 MCV 98.7 (*) MCH 31.8 MCHC 32.3 RDW 12.0 Platelets 205 MPV 10.5 NRBC 0.0 NRBC Absolute 0.00 Neutrophils Relative 60.1 Lymphocytes Relative 27.5 Monocytes Relative 7.3 Eosinophils Relative 3.9 Basophils Relative 0.5 Immature Granulocytes Relative 0.7 Neutrophils Absolute 8.20 (*) Lymphocytes Absolute 3.76 Monocytes Absolute 1.00 Eosinophils Absolute 0.53 (*) Basophils Absolute 0.07 Immature Granulocytes Absolute 0.10 (*) RESPIRATORY VIRUS PANEL MOLECULAR STUDY CBC AND DIFFERENTIAL Narrative: The following orders were created for panel order CBC and differential. Procedure Abnormality Status --------- ------ CBC auto differential[[id number]] Abnormal Final result Please view results for these tests on the individual orders. B-TYPE NATRIURETIC PEPTIDE TROPONIN I HIGH SENSITIVITY TROPONIN I HIGH SENSITIVITY BASIC METABOLIC PANEL HEPATIC FUNCTION PANEL URINALYSIS WITH REFLEX MICROSCOPIC Narrative: The following orders were created for panel order Urinalysis with reflex microscopic. Procedure Abnormality Status --------- ------ Urinalysis with reflex ...[[id number]] Please view results for these tests on the individual orders. URINALYSIS WITH REFLEX MICROSCOPIC Abnormal Labs Reviewed VENOUS BLOOD GAS - Abnormal; Notable for the following components: Result Value pH, Cameron 7.12 (*) pCO2, Cameron 82 (*) pO2, Cameron 77 (*) HCO3, Venous 20.8 (*) Base Excess, Cameron -5.1 (*) All other components within normal limits CBC WITH AUTO DIFFERENTIAL - Abnormal; Notable for the following components: WBC 13.7 (*) MCV 98.7 (*) Neutrophils Absolute 8.20 (*) Eosinophils Absolute 0.53 (*) Immature Granulocytes Absolute 0.10 (*) All other components within normal limits XR Chest 1 View (Results Pending) I have discussed the incidental/abnormal imaging and/or lab abnormalities with the patient and haveinstructed them the need for further evaluation and workup with their primary care doctor. I have provided the patient with a paper copy of the abnormality. The laboratory results, imaging results and other diagnostic exam results were reviewed in the EMR. EKG Interpretation Encounter Date: 11/25/24 ECG 12 lead Result Value Ventricular Rate ECG 91 Atrial Rate 91 P-R Interval 154 QRS Duration 86 Q-T Interval 350 QTc 430 P Wave [place] 59 R [place] 5 T [place] 69 ECG Interpretation Normal sinus rhythm Septal infarct (cited on or before 13-NOV-2024) Abnormal ECG When compared with ECG of 13-NOV-2024 11:48, No significant change was found *Note: Due to a large number of results and/or encounters for the requested time period, some results have not been displayed. A complete set of results can be found in Results Review. Critical Care Time None ? Medical Decision Making Medical Decision Making Differential: ACS CHF COPD exacerbation Pulmonary Edema Pneumothorax Patient has improved. Repeat Abg is improved. Plan for admission. Consulted ICU, agree with admission to medicine. Case discussed with Dr. Sanchez and Dr. Motta. Medications nitroglycerin (TRIDIL) 50 mg in dextrose 5 % 250 mL (200 mcg/mL) infusion (premix) (20 mcg/min intravenous Rate/Dose Change 11/25/24 7374) metoclopramide (REGLAN) injection 10 mg (has no administration in time range) cefTRIAXone (ROCEPHIN) 2 g in sterile water 20 mL IV syringe (has no administration in time range) furosemide (LASIX) injection 40 mg (40 mg intravenous Given 11/25/24 1532) ondansetron (PF) (ZOFRAN) injection 4 mg (4 mg intravenous Given 11/25/24 1544) furosemide (LASIX) injection 40 mg (40 mg intravenous Given 11/25/24 1534) albuterol 2.5 mg /3 mL (0.083 %) nebulizer solution 5 mg (5 mg nebulization Given 11/25/24 1552) ED Course as of 11/25/242018Nov 25, 2024 1616 Patient presented lethargic, hypoxemic, complaining of shortness of breath. On arrival, patient was on CPAP with EMS, and immediately transitioned to BiPAP. Patient was having oxygenation in thehigh 80s. Patient was found to be hypertensive to 230 systolic on arrival. She was mildly tachycardic as well. On a bedside ultrasound, she was found to have bilateral lung sliding but concern for pulmonary edema with diffuse B-lines. Given the lower extremity swelling as well, there was concern for acute pulmonary edema. She was immediately given nitro oral tablets, as well as started on a nitroglycerin drip. Her blood pressures improved. She was also given Lasix. She also subjectively startedto report improvement as well. Hypercarbia and acidosis noted on the initial VBG. [PP] ED Course User Index [PP] Sheldon Anthony MD Clinical Impressions as of 11/25/242018 Acute respiratory failure with hypoxia and hypercapnia Acute pulmonary edema ([facility]) COPD exacerbation ([facility]) Hypertensive emergency Procedures @PROCEDURENOTES@ Critical Care Performed by: Sheldon Anthony MD Authorized by: Sheldon Anthony MD Critical care provider statement: Critical care time (minutes): 80 Critical care time was exclusive of: Separately billable procedures and treating other patients Critical care was necessary to treat or prevent imminent or life-threatening deterioration of the following conditions: Respiratory failure Critical care was time spent personally by me on the following activities: Development of treatmentplan with patient or surrogate, discussions with consultants, pulse oximetry, re-evaluation of patient's condition, review of old charts, ordering and review of radiographic studies, ordering and review of laboratory studies, ordering and performing treatments and interventions, examination of patient, evaluation of patient's response to treatment and obtaining history from patient or surrogate I assumed direction of critical care for this patient from another provider in my specialty: no Care discussed with: admitting provider Comments: 74Y F presents with CC of shortness of breath, hypoxia, lethargy, respiratory distress, with wheezes and ronchi diffusely, hypertensive to 230s systolic, tachypnea to the 40s, requiring emergent evaluation and frequent reassessments, intervention with non-mechanical ventilation, nitroglycerin drip,and IV lasix due to concern for acute pulmonary edema, hypertensive emergency, and COPD exacerbation. Found to be acidotic on VBG, with hypercarbia. Diagnosis No diagnosis found. Disposition Data Unavailable ED Prescriptions None Physician Attestation Sheldon Anthony MD 11/25/24 1632 Sheldon Anthony MD 11/25/242019 documented in this encounter H&P Notes * SALINA Liu - 11/25/2024 10:38 PM EDT Images from the original note were not included. DEON HISTORY AND PHYSICAL Please contact author [SALINA Liu] via [employer]. Patient: Rita Draper Admission Date/Time: 11/25/2024 3:18 PM : 1950 [74 y.o.] Patient's PCP: Will Monroe MD Attending Provider: Ko Motta MD CHIEF COMPLAINT Shortness of breath HISTORY OF PRESENT ILLNESS 74 year-old female with past medical history significant for hypertension, hyperlipdiemia, COPD on 2L NC, and further history below presents with shortness of breath. Today while at the [facility], the pt walked to the bathroom without wearing her oxygen supplementation. On the way back to her seat, she became significantly short of breath. Her pulse ox was checked and it was 54% and she was told she was turning blue therefore EMS was called. She states she does not remember anything after that, including EMS, ambulance transport, and ED course. Pt states that recently she feels as if her baseline of 2L NC is not enough and she has been wanting to increase it. She reports feeling short of breath with palpitations when walking up the stairs to go to the bathroom at home. Pt underwent a lung nodule biopsy last week and is still awaiting her results. Pt endorses chronic nausea and abdominal pain secondary to anxiety. Otherwise, pt denies chest pain, fevers, chills, vomiting, diarrhea, constipation, abdominal pain, dysuria, hematuria hematochezia. Update: a few hours after initial evaluation, pt stated she was having some abdominal pain in the left lower quadrant/suprapubic area. She states the pain initially began after barr insertion. Upon EMS arrival, pt was found to be in the 50s spO2 on 2L NC. She was placed on CPAP, given Solu-Medrol 125 mg, and DuoNebs x3. In the ED, pt arrived with spO2 in the 80s and was placed on BiPAP. She was hypertensive with a systolic of 230 and was placed on a nitroglycerin drip. ED provider performed a bedside ultrasound and found bilateral lung sliding with diffuse B-lines conerning for pulmonary edema and she was given combined 80 mg IV Lasix. Pt also received 2 g IV Ceftriaxone, 4 mg IV Zofran, and 10 mg IV Reglan. She had a barr catheter placed. Initially, pt was admitted to the ICU service where she she was weaned off the Nitro drip, started on Levaquin, and given 40 mg IV Solu-Medrol. Pt was able to switch to high flow from BiPAP and then weaned off onto her baseline 2L NC. Pt improved significantly and was transferred to [place] service. Upon H&P, pt is afebrile, HR 87, RR 20, BP 135/81, spO2 98% 2L NC. Labs: WBC 13.7, BUN 1.14, GFR 50, AST 60, ALT 174, lactate 1.6, troponins 55, 212, BNP 109. InitialVBG: pH 7.12, CO2 82, O2 77, HCO3 20.8. Repeat ABG: pH 7.35, CO2 49, O2 56, HCO3 25.2. Viral panel negative. UA negative for infection. EKG: normal sinus rhythm, 91 bpm, no acute ischemic changes CXR: Normal heart size. Increased interstitial opacities suggestive of vascular congestion/overload. Superimposed infectious/inflammatory process could also be considered. No significant pleural effusion. No pneumothorax. Review of Systems A 12 point review of system was completed and the pertinent positive/negatives are included in the HPI. MEDICAL HISTORY Past Medical History Past Medical History: Diagnosis Date ??? Anxiety 07/24/2017 DX:Anxiety ??? 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 Carotid stenosis, left 07/24/2017 DX:Carotid stenosis, left; COMMENT: MRA 04/24/14, MRA neck 01/12/2016: Occlusion of L ICA. Updated stable 12/01/17: No significant right internal carotid stenosis by Doppler ??? CKD (chronic kidney disease) stage 3, GFR 30-59 ml/min ([facility]) 03/13/2018 DX:CKD (chronic kidney disease) stage 3, GFR 30-59 ml/min ([facility]) ??? COPD (chronic obstructive pulmonary disease) ([facility]) 07/24/2017 DX:COPD (chronic obstructive pulmonary disease) ([facility]); COMMENT: Chronic bronchitis ??? Depression 07/24/2017 DX:Depression ??? Dermatochalasis of both upper eyelids 11/22/2017 DX:Dermatochalasis of both upper eyelids; COMMENT: Severe bilateral senile ptosis, complicated on Rby R lower motor neuron facial palsy. ??? 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 DX:Facial palsy; COMMENT: Secondary to traumatic head injury, fall on R side. ??? GERD (gastroesophageal reflux disease) 04/10/2019 DX:GERD (gastroesophageal reflux disease) ??? Headache 07/24/2017 DX:Headache; COMMENT: Intractable chronic post-traumatic h/a. ??? History of stroke 07/24/2017 DX:History of stroke; COMMENT: Apr 2014 and December 2015. Aphasia and RUE weakness, resolved. On Plavix ??? History of tobacco use 07/24/2017 DX:History of tobacco use ??? HTN (hypertension) 07/24/2017 DX:HTN (hypertension) ??? Hyperlipidemia 03/13/2018 DX:Hyperlipidemia ??? Irritable bowel syndrome 03/08/2018 DX:Irritable bowel syndrome ??? Lung nodule ??? Multilevel degenerative disc disease 03/13/2018 DX:Multilevel degenerative disc disease ??? Nuclear sclerosis of both eyes 11/22/2017 DX:Nuclear sclerosis of both eyes ??? Oxygen dependent 2 lpm when active ??? Psoriasis 07/08/2020 DX:Psoriasis ??? Renal calculi 03/13/2018 DX:Renal calculi; COMMENT: Right, small and nonobstructing ??? Seizure disorder (CMS/HCC) 07/24/2017 DX:Seizure disorder (HCC); COMMENT: 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 On Dilantin ??? Thrombocytopenia (CMS/HCC) 07/24/2017 DX:Thrombocytopenia (HCC) ??? Vitamin D deficiency 07/24/2017 DX:Vitamin D deficiency Past Surgical History Past Surgical History: Procedure Laterality Date ??? APPENDECTOMY PROCEDURE: HISTORICAL APPENDECTOMY; COMMENT: age 10 ??? BLEPHAROPLASTY ??? DENTAL SURGERY wears partial bridge per pt ??? OOPHORECTOMY Right PROCEDURE: HISTORICAL OOPHORECTOMY; COMMENT: partial ??? OTHER SURGICAL HISTORY Left 09/2016 PROCEDURE: OK OPTX ILIAC TUBRST AVLS/WING FX FIXJ IF PRFRMD; COMMENT: s/p pelvic repair, [place] ??? TONSILLECTOMY PROCEDURE: HISTORICAL TONSILLECTOMY ??? UPPER GASTROINTESTINAL ENDOSCOPY 10/03/2018 PROCEDURE: UPPER GI ENDOSCOPY/EXAM; COMMENT: mild edema ??? UPPER GASTROINTESTINAL ENDOSCOPY 02/13/2019 PROCEDURE: UPPER GI ENDOSCOPY/EXAM; COMMENT: non specific edema, biopsy pending Social History reports that she has quit smoking. She uses smokeless tobacco. She reports that she does not drink alcohol and does not use drugs. Does not require assistance with ambulation. Lives with . Family History family history includes Arthritis in her father and sister; Asthma in her sister; Blindness in her father; Cataracts in her father; Coronary artery disease in her mother; Glaucoma in her father; Hypertension in her father; No Known Problems in her aunt, uncle, and another family member. Father with emphysema. Allergies is allergic to aspirin, azithromycin, latex, penicillins, sulfa (sulfonamide antibiotics), and tetracycline. Home Medications No current facility-administered medications on file prior to encounter. Current Outpatient Medications on File Prior to Encounter Medication Sig Dispense Refill ??? adalimumab (Humira,CF, Pen) 40 mg/0.4 mL pen Inject 40 mg into the skin every 14 days for 28 days. ??? albuterol 2.5 mg /3 mL (0.083 %) nebulizer solution Take 1 Vial by nebulization every 6 hours as needed for Wheezing or Shortness of Breath for up to 180 days. ??? albuterol HFA (PROAIR HFA ; PROVENTIL HFA ; VENTOLIN HFA) 90 mcg/actuation inhaler Inhale 2 Puffs into the lungs every 4 hours as needed for Cough or Wheezing. ??? ARIPiprazole (ABILIFY) 2 mg tablet Take 2.5 tablets (5 mg total) by mouth 1 (one) time each day. ??? carvediloL (COREG) 12.5 mg tablet Take 1 Tablet by mouth 2 times daily. ??? cloNIDine (CATAPRES) 0.1 mg tablet Take 1 Tablet by mouth 2 times daily. ??? clopidogreL (PLAVIX) 75 mg tablet TAKE ONE TABLET DAILY 90 tablet 1 ??? cycloSPORINE (Restasis MultiDose) 0.05 % drops PLACE ONE DROP IN EACH EYE TWICE DAILY ??? diazePAM (VALIUM) 10 mg tablet Take 1 Tablet by mouth every 8 hours as needed for Anxiety. ??? diclofenac (VOLTAREN) 1 % topical gel Apply 4 g topically 4 times daily. ??? docusate sodium (COLACE) 100 mg capsule Take 1 Cap by mouth 2 times daily for 30 days. ??? fluticasone propionate (FLONASE) 50 mcg/actuation nasal spray Administer 2 sprays into each nostril 1 (one) time each day. Shake gently. Before first use, prime pump. After use, clean tip and replace cap. 16 g 2 ??? fluticasone-salmeterol (ADVAIR DISKUS) 250-50 mcg/dose diskus inhaler Inhale 1 puff by mouth 2 (two) times a day. Inhale 1 Puff into the lungs 2 times daily. 3 each 3 ??? mirtazapine (REMERON) 15 mg tablet Take 1.5 tablets (22.5 mg total) by mouth at bedtime. ??? ondansetron ODT (ZOFRAN-ODT) 4 mg disintegrating tablet Take 1 Tablet by mouth every 8 hours asneeded for Nausea. ??? phenytoin (DILANTIN) 100 mg ER capsule Take 1 capsule (100 mg total) by mouth 2 (two) times a day. 270 capsule 0 ??? simvastatin (ZOCOR) 20 mg tablet Take 1 tablet (20 mg total) by mouth at bedtime. at bedtime. 90 tablet 1 ??? sodium chloride-aloe vera (Saline Nasal, aloe vera,) gel topical gel Apply 1 Application to affected nostril(s) if needed (nasal dryness). 14.1 g 3 ??? tiotropium (Spiriva with HandiHaler) 18 mcg per inhalation capsule Place 1 capsule (18 mcg total) into inhaler and inhale 1 (one) time each day. 3 each 3 ??? Trintellix 5 mg tablet Take 1 tablet (5 mg total) by mouth 1 (one) time each day. OBJECTIVE Vitals Visit Vitals BP 135/81 Pulse 87 Temp 36.3 ??C (97.4 ??F) Resp 20 Temp (24hrs), Av.4 ??C (97.6 ??F), Min:36.3 ??C (97.4 ??F), Max:36.6 ??C (97.8 ??F) Body mass index is 26.61 kg/m??. No results found for: PTWT , PTHT Physical Examination General: Age appropriate, pleasant. No acute distress. Laying comfortably on exam stretcher. Skin: Warm, dry, intact, no diaphoresis. HEENT: Atraumatic, normocephalic head, Patient is handling secretions without trismus or drooling. Speaking in full sentences. Neck: Soft/supple, full range of motion. No cervical spine tenderness noted. Cardiology: Regular rate and rhythm, no rubs or gallops, S1 and S2 auscultated. Respiratory: Decreased breath sounds throughout with expiratory wheezing. On 2L NC. Clear to auscultation bilaterally, no wheezes, rales or rhonchi. No accessory muscle use, retractions or tripoding;speaking in full sentences without difficulties. Abdominal/GI: Abdomen is not distended, Normal bowel sounds, abdomen soft and non-tender. No CVA tenderness. Update: TTP in LLQ/suprapubic area Peripheral Vascular: No edema on lower legs. Radial pulse 2 + and Dorsalis Pedis 1+ bilaterally. Neurological: No focal deficit. CN II-XII grossly intact. Brand Recorder strength equal 5/5 bilateral upper extremities. Upper and lower extremities with strength 5/5 and equal bilaterally. Musculoskeletal: No calf tenderness or asymmetry. Moving all extremities at the major joint spaces without difficulty. Psychiatric: Cooperative, appropriate mood & affect. ECG: Was ECG Performed? Yes . Sinus Rhythm? Yes. Signs of acute ischemia? No Further Interpretation: normal sinus rhythm, 91 bpm, no acute ischemic changes LAB RESULTS (most recent) HEMATOLOGY Lab Results Component Value Date WBC 13.7 (H) 11/25/2024 HGB 15.0 11/25/2024 HCT 46.5 11/25/2024 MCV 98.7 (H) 11/25/2024 PLT 205 11/25/2024 CHEMISTRY Lab Results Component Value Date GLUCOSE 228 (H) 11/25/2024 NA 136 11/25/2024 K 4.7 11/25/2024 CO2 25 11/25/2024 CL 105 11/25/2024 BUN 17 11/25/2024 CREATININE 1.14 (H) 11/25/2024 EGFR 50 (L) 11/25/2024 CALCIUM 9.4 11/25/2024 MG 3.4 (H) 11/25/2024 PHOS 8.1 (H) 11/25/2024 ANIONGAP 6 11/25/2024 Radiology XR Chest 1 View Final Result FINDINGS/IMPRESSION: Normal heart size. Increased interstitial opacities suggestive of vascular congestion/overload. Superimposed infectious/inflammatory process could also be considered. No significant pleural effusion. No pneumothorax. -------- FINAL REPORT -------- Dictated By: Hosea Velez Dictated Date: 11/25/2024 17:06 ET Assigned Physician: Hosea Velez Reviewed and Electronically Signed By: Hosea Velez Signed Date: 11/25/2024 17:07 ET Workstation ID: [id number] Transcribed By: Self Edit Transcribed Date: 11/25/2024 17:06 ET Transthoracic echocardiogram (TTE) complete with PRN contrast, bubble, strain, and 3D order panel (Results Pending) XR Chest 1 View (Results Pending) ASSESSMENT & PLAN Acute hypoxic respiratory failure Acute on chronic COPD - Admit to medicine - Monitor on telemetry - Pt weaned off from BiPAP to high flow to baseline 2L NC - Continue IV Levaquin - Continue IV Solu-Medrol - Continue DuoNebs, as needed Albuterol, and Yupelri neb - Procalcitonin pending - Blood cultures pending - Fall precautions - Morning labs; CBCd, BMP, Mg, phosphorus, calcium, troponin, venous blood gas Pulmonary edema - Given combined 80 mg IV Lasix in ED - Echo in am - Daily weights, strict I&O's, fluid restriction - Continue barr with catheter care Hypertensive urgency - Has been weaned off Nitroglycerin drip; most recent BP 135/81 - Continue home meds; Carvedilol and Clonidine Elevated troponins Troponins: 55, 212, 931, 933. EKG nonischemic. Pt denies chest pain. - Most likely secondary to hypertensive urgency and hypoxia - Trend troponin - Consider cardiology consult based on repeat troponin - EKG as needed for chest pain Abdominal pain Pt stated she was having some abdominal pain in the left lower quadrant/suprapubic area. She statesthe pain initially began after barr insertion. Pt was repositioned and was able to fall asleep. - If pt continues to experience abdominal pain; consider removal of barr or abdominal imaging Hyperlipidemia - Simvastatin converted to Atorvastatin Left carotid artery occlusion - Continue Plavix Seizure disorder - Continue Phenytoin Depression Anxiety - Continue Aripiprazole, Diazepam, Mirtazapine - Holding Trintellix Nicotine use Former cigarette smoker. Now using electronic cigarette. - Counseled on smoking cessation for greater than 5 minutes with multiple cessation techniques offered - Continue nicotine replacement therapy Case discussed with Dr.Christopher Motta Admission checklist [x] Code status: Full Code - Confirmed - Confirmed with pt. [x] VTE Prophylaxis: Lovenox [x] Diet order on admission: Cardiac diet with 1500cc fluid restriction [x] Medication reconciliation; pt is unsure of her meds. States her provided ICU doctor with medication list. Health Care proxy with Phone number: Deangelo; [phone] Cosigned by Ko Motta MD at 11/27/2024 10:11 PM EDT Associated attestation - Ko Motta MD - 11/27/2024 10:11 PM EDT This is a split/shared visit with SALINA Liu. I personally performed the medical decision making (MDM) for the care of this patient on 11/25/2024 as documented below 74 year-old female with history of chronic hypoxemic respiratory failure on 2 L/min O2 secondary toCOPD, psoriasis on adalimumab, hypertension, CVA with residual dysphasia, seizure disorder, hyperlipidemia, chronic kidney disease stage 3, and recent lung nodule biopsy presents with acute on chronic hypoxemic respiratory failure. The patient's respiratory distress was triggered after she attempted to ambulate to the bathroom without her supplemental oxygen and developed hypertensive urgency with flash pulmonary edema. She wasinitially treated with BiPAP, diuresis, and a nitroglycerin infusion. Her initial blood gas was significant for hypercapnia with a severe respiratory acidosis. She was initially admitted to the ICU for management but has now been downgraded after she has significantly improved over the last severalhours with the above treatment. She is being treated with levofloxacin pending a procalcitonin level should she have an underlying pneumonia. Corticosteroids and nebulizer treatments are being used for exacerbation of her COPD. Shehas responded well to diuretic therapy. She will resume her home carvedilol and clonidine. Nitroglycerin infusion has been weaned to off. Her troponin was initially normal but has become progressively more elevated and is likely secondary to hypoxemia and her severely elevated blood pressure. ECG is nonischemic. She is not having chest pain to suggest an acute coronary syndrome. An echocardiogram has been ordered to evaluate her RV and LVSF. Management of seizure disorder and anxiety as below. Ko Motta MD 11/27/24 10:01 PM EDT documented in this encounter Plan of Treatment Upcoming Encounters Date Type Department Care Team (Late st Contact Info) Description 12/03/2024 11:10 AM EDT Office Visit Pulmonolgy - [facility] [address] [facility] [address] [place] [phone] Jelena Hoff NP [address] [facility] [place] [address] [place] [address] 12/03/2024 2:30 PM EDT Office Visit Pulmonology - [facility] [address] [facility] [address] [place] [phone] Laura Avalos MD [address] [place] [id number] 01/07/2025 1:15 PM EDT Office Visit Adult Medicine [facility] [address] [place] [phone] Will Monroe MD [address] [place] [address] 03/11/2025 11:00 AM EDT Appointment [facility] Ultrasound [address] [place] [phone] 03/26/2025 11:00 AM EDT Office Visit Vascular Surgery - [place] [address] [facility] [address] [place] [phone] Krupa Garcia MD [address] [facility] [address] [place] [address] Pending Results Name Type Priority Associated Diagnoses Date /Time Blood Culture, Peripheral Draw #1 Microbiology STAT 11/25/2024 5: 15 PM EDT Blood Culture, Peripheral Draw #2 Microbiology STAT 11/25/2024 4: 37 PM EDT Scheduled Orders Name Type Priority Associated Diagnoses Orde r Schedule Basic metabolic panel Lab Routine Stage 3 chronic kidney disease, unspecified whether stage 3a or 3b CKD ([facility] [place] [place] V24, [facility] [place] [place] V28) Expected: 12/03/2024, Expires: 11/26/2025 Scheduled Referrals Name Type Priority Associated Diagnoses Orde r Schedule Ambulatory referral to Home Health Outpatient Referral Routine Chronic obstructive pulmonary disease with acute exacerbation ([facility] [place] [place] V24, [facility] [place] [place] V28) 1 Occurrences starting 11/26/2024 until 11/26/2025 documented as of this encounter Procedures Procedure Name Priority Date/Time Associated Diagnosis Comments ECG ANNOTATED 11/27/2024 HOME O2 EVAL (DESATURATION SCREEN) Routine 11/26/2024 2:00 PM EDT BASIC METABOLIC PANEL Routine 11/26/2024 12:44 PM EDT TRANSTHORACIC ECHOCARDIOGRAM (TTE) COMPLETE Routine 11/26/2024 11:26 AM EDT Hypertensive emergency XR CHEST 1 VIEW STAT 11/26/2024 5:12 AM EDT TROPONIN I HIGH SENSITIVITY Routine 11/26/2024 3:54 AM EDT PROCALCITONIN Routine 11/26/2024 3:54 AM EDT EXTRA TUBES Routine 11/26/2024 3:54 AM EDT CBC WITH AUTO DIFFERENTIAL Routine 11/26/2024 3:54 AM EDT LT BLUE - NA CITRATE Routine 11/26/2024 3:54 AM EDT CBC AND DIFFERENTIAL Routine 11/26/2024 3:54 AM EDT PHOSPHORUS Routine 11/26/2024 3:54 AM EDT MAGNESIUM Routine 11/26/2024 3:54 AM EDT VENOUS BLOOD GAS Routine 11/26/2024 3:54 AM EDT CALCIUM, IONIZED Routine 11/26/2024 3:54 AM EDT BASIC METABOLIC PANEL Routine 11/26/2024 3:54 AM EDT TROPONIN I HIGH SENSITIVITY Routine 11/25/2024 10:30 PM EDT PHOSPHORUS Routine 11/25/2024 10:30 PM EDT MAGNESIUM Routine 11/25/2024 10:30 PM EDT CALCIUM, IONIZED Routine 11/25/2024 10:3 0 PM EDT BASIC METABOLIC PANEL Routine 11/25/2024 10:30 PM EDT OXYGEN THERAPY, ADULT Routine 11/25/2024 7:07 PM EDT OXYGEN THERAPY, ADULT Routine 11/25/2024 7:07 PM EDT ARTERIAL BLOOD GAS STAT 11/25/2024 6: 49 PM EDT ECG 12-LEAD Routine 11/25/2024 6:40 PM EDT CULTURE BLOOD STAT 11/25/2024 5:15 PM EDT TROPONIN I HIGH SENSITIVITY STAT 11/25/2024 4:37 PM EDT CULTURE BLOOD STAT 11/25/2024 4:37 PM EDT LACTATE STAT 11/25/2024 4:37 PM EDT VENOUS BLOOD GAS STAT 11/25/2024 4:37 PM EDT URINALYSIS WITH REFLEX MICROSCOPIC STAT 11/25/2024 4:06 PM EDT URINALYSIS WITH REFLEX MICROSCOPIC STAT 11/25/2024 4:06 PM EDT RESPIRATORY VIRUS PANEL MOLECULAR STUDY STAT 11/25/2024 4:05 PM EDT ECG 12-LEAD STAT 11/25/2024 3:49 PM EDT TROPONIN I HIGH SENSITIVITY STAT 11/25/2024 3:41 PM EDT PROCALCITONIN Add-On 11/25/2024 3:41 PM EDT CBC WITH AUTO DIFFERENTIAL STAT 11/25/2024 3:41 PM EDT CBC AND DIFFERENTIAL STAT 11/25/2024 3:41 PM EDT THYROID STIMULATING HORMONE Add-On 11/25/2024 3:41 PM EDT PHOSPHORUS Add-On 11/25/2024 3:41 PM EDT B-TYPE NATRIURETIC PEPTIDE STAT 11/25/2024 3:41 PM EDT MAGNESIUM Add-On 11/25/2024 3:41 PM EDT VENOUS BLOOD GAS STAT 11/25/2024 3:41 PM EDT HEPATIC FUNCTION PANEL STAT 3:41 PM EDT BASIC METABOLIC PANEL STAT 11/25/2024 3:41 PM EDT XR CHEST 1 VIEW STAT 11/25/2024 3:30 PM EDT OK CRITICAL CARE 30-74 MINUTES Routine 11/25/2024 3:16 PM EDT documented in this encounter Results * ECG-Annotated (11/27/2024) us Provider Onbase MD ECG ORDERABLES Final Result * (ABNORMAL) Basic metabolic panel (11/26/2024 12:44 PM EDT) Sodium 137 133 - 145 mmol/L LAB CHEMISTRY METHOD 11/26/2024 1:37 PM [facility] Potassium 4.3 3.5 - 5.5 mmol/L LAB CHEMISTRY METHOD 11/26/2024 1:37 PM [facility] Chloride 100 96 - 110 mmol/L LAB CHEMISTRY METHOD 11/26/2024 1:37 PM [facility] CO2 32 21 - 32 mmol/L LAB CHEMISTRY METHOD 11/26/2024 1:37 PM [facility] Anion Gap 5 3 - 11 LAB CHEMISTRY METHOD 11/26/2024 1:37 PM [facility] Glucose 141(H) 70 - 100 mg/dL LAB CHEMISTRY METHOD 11/26/2024 1:37 PM [facility] BUN 28(H) 5 - 25 mg/dL LAB CHEMISTRY METHOD 11/26/2024 1:37 PM [facility] Creatinine 1.31(H) 0.50 - 1.10 mg/dL LAB CHEMISTRY METHOD 11/26/2024 1:37 PM [facility] eGFR 42(L) >=60 mL/min/1. 73m2 LAB CHEMISTRY METHOD 11/26/2024 1:37 PM [facility] Comment:Calculation based on the??Chronic Kidney Disease Epidemiology Collaboration (CKD-EPI) equation refit??without adjustment for race. BUN/Creatinine Ratio 21.4 LAB CHEMISTRY METHOD 11/26/2024 1:37 PM [facility] Calcium 9.4 8.5 - 10.5 mg/dL LAB CHEMISTRY METHOD 11/26/2024 1:37 PM [facility] Blood Venous blood specimen / Unknown Venipuncture / Unknown 11/26/2024 12:44 PM EDT 11/26/2024 12:59 PM EDT us Baljeet Franco MD LAB BLOOD ORDERABLES Final Re sult [facility] [place] ([facility]) [facility] [address] [place] [address], * (ABNORMAL) TRANSTHORACIC ECHOCARDIOGRAM (TTE) COMPLETE (11/26/2024 11:26 AM EDT) Left Atrium Minor Eureka 5.2 cm CV PACS Left Atrium Major Eureka 5.2 cm CV PACS LA Area Sys (A2C) 15 cm2 CV PACS LA Area Sys (A4C) 13 cm2 CV PACS LA Volume (BP) 31 mL CV PACS LA Size 2.8 cm CV PACS RA Area 11.9 cm2 CV PACS RA 2D Volume 27 mL CV PACS AV Regurgitation PHT 690 ms CV PACS AR Max Velocity 3.3 m/s CV PACS AV Peak Moises 1.5 m/s CV PACS AV Peak Gradient 9 mmHg CV PACS AV Mean Gradient 4 mmHg CV PACS AV Mean Gradient 4 mmHg CV PACS Ao VTI 33.8 cm CV PACS AV Area Continuity Equation 1.5 cm2 CV PACS AV Area Peak Velocity 1.8 cm2 CV PACS Aortic Sinus Valsalva 3.4 cm CV PACS Ascending Aorta 3.4 cm CV PACS IVC Proximal 1.8 cm CV PACS IVSD 1.0(A) 0.6 - 0.9 cm CV PACS LVIDD 4.1 3.8 - 5.2 cm CV PACS LVIDS 2.9 2.2 - 3.5 cm CV PACS LVOT Diameter 1.7 cm CV PACS LVOT Mean Moises 0.7 m/s CV PACS LVOT Mean Grad 2 mmHg CV PACS LVOT Mean Grad 2 mmHg CV PACS LVOT Peak VTI 22.6 cm CV PACS LVOT Peak Moises 1.2 m/s CV PACS LVOT Peak Gradient 5 mmHg CV PACS LVPWD 1.0(A) 0.6 - 0.9 cm CV PACS MV E' Tissue Velocity Lateral 11 cm/s CV PACS MV E' Tissue Velocity Septal 6 cm/s CV PACS LVOT Area 2.3 cm2 CV PACS LVOT Stroke Volume 51 mL CV PACS MV Deceleration Peach 3.1 m/s2 CV PACS E Wave Deceleration Time 268(A) 119 - 242 ms CV PACS MV PHT 78 ms CV PACS MV Peak A Moises 0.99 m/s CV PACS MV Peak E Moises 0.84 m/s CV PACS MV Mean Gradient 2 mmHg CV PACS MV VTI 31.6 cm CV PACS Mitral Valve Max Velocity 1.0 m/s CV PACS Mitral Valve Max Velocity 1.0 m/s CV PACS MV Peak Gradient 4 mmHg CV PACS MV Area PHT 2.8 cm2 CV PACS MV Area Continuity Equation 1.6 cm2 CV PACS PV Acceleration Time 106 ms CV PACS PV Mean Gradient 1 mmHg CV PACS PV VTI 19.4 cm CV PACS PV Peak Velocity 1.0 m/s CV PACS PV Peak Gradient 4 mmHg CV PACS RV Diastolic Basal Dimension 3.3 2.5 - 4.1 cm CV PACS RV S' 10 cm/s CV PACS TAPSE 24 mm CV PACS E/E' Ratio Septal 14 CV PACS E/E' Ratio Averaged 11 CV PACS LVOT Stroke Index 28 mL/m2 CV PACS LA Dimension Index 2D 1.5 cm/m2 CV PACS Relative Wall Thickness ratio 0.49 CV PACS LVOT:AV VTI Index 0.67 CV PACS FS 29 % CV PACS LV Mass 2D 132 g CV PACS Ascending Aorta Index 1.86 cm/m2 CV PACS MV VTI:LVOT VTI ratio 1.4 CV PACS LVOT flow 159 mL/s CV PACS RA 2D Volume Index 15 mL/m2 CV PACS ANAND Index (VTI) 0.83 cm2/m2 CV PACS ANAND Index (Pk Moises) 0.98 cm2/m2 CV PACS LVIDD Index 2.24 cm/m2 CV PACS LVIDS Index 1.58 cm/m2 CV PACS AV Velocity Ratio 0.80 CV PACS E/A Ratio 0.8 CV PACS E/E' Ratio Lateral 8 CV PACS LA Volume Index (BP) 17 mL/m2 CV PACS LV Mass Index 2D 72 g/m2 CV PACS BSA 1.87 m2 CV PACS Est. RA Pressure 3 mmHg CV PACS Anatomical Region Laterality Modality Ultrasound Narrative 11/26/2024 12:19 PM EDT ?Somewhat technically limited study. ??But the study appears to be normal with normal LV wall thickness and internal chamber dimensions. ??Normal systolic and diastolic function. ??EF in the range of 60%. ?Normal RV size and function. ?Normal left and right atrium. ?Mild aortic insufficiency and trace mitral insufficiency. ?The CVP is estimated to be normal. ?No prior echo for comparison. Left Ventricle Left ventricle cavity size is normal. Wall thickness is normal. Systolic function is normal with an ejection fraction of 60-65%. There are no regional LV wall motion abnormalities. There is no diastolic dysfunction. Right Ventricle Right ventricle cavity appears normal. Systolic function is normal. Left Atrium Left atrium cavity size is normal. Right Atrium Right atrium cavity is normal. IVC/SVC Inferior vena cava structure is normal. RA pressures is estimated to be 3 mmHg (IVC diameter <21 mm and decreases >50% during inspiration). Mitral Valve The leaflets are mildly thickened. There is mild annular calcification. There is trace regurgitation. There is no evidence of mitral valve stenosis. Tricuspid Valve Tricuspid valve structure is normal. There is no significant regurgitation. There is no evidence of tricuspid valve stenosis. Cannot assess RVSP. Aortic Valve The aortic valve is trileaflet. The leaflets are mildly thickened. There is mild regurgitation with a centrally directed jet. There is no evidence of aortic valve stenosis. Pulmonic Valve The pulmonic valve was not well visualized. There is no regurgitation or stenosis. Ascending Aorta The aorta appears normal in size. Pericardium Pericardium appears normal. There is no pericardial effusion. Study Details Overall the study quality was adequate. Dl Sanchez DO CV ECHO PROCEDURES Final Res ult * XR Chest 1 View (11/26/2024 5:12 AM EDT) Anatomical Region Laterality Modality Body Radiographic Mireya ging 11/26/2024 8:15 AM EDT Impressions 11/26/2024 8:20 AM EDT Previous chest CT has demonstrated a suspicious nodule in the right upper lobe. ??Additional nodules present. Interstitial prominence. ??No acute focal pneumonia. -------- FINAL REPORT -------- Dictated By: Dk Navarrete Dictated Date: 11/26/2024 08:15 ET Assigned Physician: Dk Navarrete Reviewed and Electronically Signed By: Dk Navarrete Signed Date: 11/26/2024 08:20 ET Workstation ID: [id number] Transcribed By: Self Edit Transcribed Date: 11/26/2024 08:15 ET Narrative 11/26/2024 8:20 AM EDT EXAMINATION: CHEST CLINICAL INFORMATION: Respiratory failure COMPARISON: Frontal view 11/25/24 TECHNIQUE: Portable upright frontal view of the chest FINDINGS: Devices overlie the patient. Calcification of the aortic arch. ??The cardiac size is within normal limits. ??The central vessels are prominent and mildly indistinct. ??There is no alveolar edema. ??There are interstitial opacities which may be minimally improved. No new dense focal area of pneumonia. ??Metallic linear densities project in the right hilum and left midlung. ??This could be iatrogenic. No pneumothorax or focal bony lesion. Procedure Note Dk Navarrete MD - 11/26/2024 EXAMINATION: CHEST CLINICAL INFORMATION: Respiratory failure COMPARISON: Frontal view 11/25/24 TECHNIQUE: Portable upright frontal view of the chest FINDINGS: Devices overlie the patient. Calcification of the aortic arch. The cardiac size is within normallimits. The central vessels are prominent and mildly indistinct. Thereis no alveolar edema. There are interstitial opacities which may beminimally improved. No new dense focal area of pneumonia. Metallic linear densities projectin the right hilum and left midlung. This could be iatrogenic. No pneumothorax or focal bony lesion. IMPRESSION: Previous chest CT has demonstrated a suspicious nodule in the right upperlobe. Additional nodules present. Interstitial prominence. No acute focal pneumonia. -------- FINAL REPORT -------- Dictated By: kD Navarrete Dictated Date: 11/26/2024 08:15 ET Assigned Physician: Dk Navarrete Reviewed and Electronically Signed By: Dk Navarrete Signed Date: 11/26/2024 08:20 ET Workstation ID: [id number] Transcribed By: Self Edit Transcribed Date: 11/26/2024 08:15 ET Dl Sanchez DO IMG XR PROCEDURES Final Resu lt * Light blue tube (11/26/2024 3:54 AM EDT) [facility] Extra Tube Hold for add-ons. 11/26/2024 6:01 AM EDT [facility] Comment:Auto resulted. Blood Venous blood specimen / Unknown Venipuncture / Unknown 11/26/2024 3:54 AM EDT 11/26/2024 4:10 AM EDT us Ko Motta MD LAB BLOOD ORDERABLES Final Result [facility] [address] [place] [address], [place] [phone] * (ABNORMAL) Troponin I high sensitivity (11/26/2024 3:54 AM EDT) [facility] High Sensitivity Troponin I 933(HH) <=54 ng/L LAB CHEMISTRY METHOD 11/26/2024 4:48 AM EDT [facility] Blood Venous blood specimen / Unknown Venipuncture / Unknown 11/26/2024 3:54 AM EDT 11/26/2024 4:09 AM EDT Narrative [facility] - 11/26/2024 4:48 AM EDT High levels of biotin in samples may falsely decrease hsTroponin values. ??Use caution when interpreting hsTroponin results in patients taking biotin who exhibit renal impairment (eGFR <60) or in patients taking more than 20 mg/day of biotin. us Rosie DOWNING LAB BLOOD ORDERABLES Final R esult [facility] [address] [place] [address], [place] [phone] * (ABNORMAL) CBC auto differential (11/26/2024 3:54 AM EDT) [facility] WBC 7.3 4.8 - 10.8 K/mcL LAB HEMETOLOGY METHOD 11/26/2024 4:46 AM [facility] RBC 4.10 3.80 - 4.80 M/mcL LAB HEMETOLOGY METHOD 11/26/2024 4:46 AM [facility] Hemoglobin 13.1 11.5 - 16.0 g/dL LAB HEMETOLOGY METHOD 11/26/2024 4:46 AM [facility] Hematocrit 40.0 35.0 - 47.0 % LAB HEMETOLOGY METHOD 11/26/2024 4:46 AM [facility] MCV 97.8 79.0 - 98.0 FL LAB HEMETOLOGY METHOD 11/26/2024 4:46 AM [facility] MCH 32.0 27.0 - 32.0 pcg LAB HEMETOLOGY METHOD 11/26/2024 4:46 AM [facility] MCHC 32.8 32.0 - 37.0 g/dL LAB HEMETOLOGY METHOD 11/26/2024 4:46 AM [facility] RDW 11.9 11.0 - 15.0 % LAB HEMETOLOGY METHOD 11/26/2024 4:46 AM [facility] Platelets 137 130 - 400 K/mcL LAB HEMETOLOGY METHOD 11/26/2024 4:46 AM [facility] MPV 10.4 7.0 - 11.0 FL LAB HEMETOLOGY METHOD 11/26/2024 4:46 AM [facility] NRBC 0.0 <1.0 % LAB HEMETOLOGY METHOD 11/26/2024 4:46 AM [facility] NRBC Absolute 0.00 <0.10 K/mcL LAB HEMETOLOGY METHOD 11/26/2024 4:46 AM [facility] Neutrophils Relative 88.1 % LAB HEMETOLOGY METHOD 11/26/2024 4:46 AM [facility] Lymphocytes Relative 8.2 % LAB HEMETOLOGY METHOD 11/26/2024 4:46 AM [facility] Monocytes Relative 3.3 % LAB HEMETOLOGY METHOD 11/26/2024 4:46 AM [facility] Eosinophils Relative 0.0 % LAB HEMETOLOGY METHOD 11/26/2024 4:46 AM [facility] Basophils Relative 0.0 % LAB HEMETOLOGY METHOD 11/26/2024 4:46 AM [facility] Immature Granulocytes Relative 0.4 % LAB HEMETOLOGY METHOD 11/26/2024 4:46 AM [facility] Neutrophils Absolute 6.44 1.50 - 7.00 K/mcL LAB HEMETOLOGY METHOD 11/26/2024 4:46 AM [facility] Lymphocytes Absolute 0.60(L) 1.00 - 5.00 K/mcL LAB HEMETOLOGY METHOD 11/26/2024 4:46 AM [facility] Monocytes Absolute 0.24 0.20 - 1.00 K/mcL LAB HEMETOLOGY METHOD 11/26/2024 4:46 AM [facility] Eosinophils Absolute 0.00 0.00 - 0.50 K/mcL LAB HEMETOLOGY METHOD 11/26/2024 4:46 AM [facility] Basophils Absolute 0.00 0.00 - 0.20 K/mcL LAB HEMETOLOGY METHOD 11/26/2024 4:46 AM [facility] Immature Granulocytes Absolute 0.03 0.00 - 0.03 K/mcL LAB HEMETOLOGY METHOD 11/26/2024 4:46 AM [facility] Blood Venous blood specimen / Unknown Venipuncture / Unknown 11/26/2024 3:54 AM EDT 11/26/2024 4:09 AM EDT Dl Sanchez LAB BLOOD ORDERABLES Final R esult Performing Organization Address City/[facility]/ZIP Co de Phone Number [facility] [address] [place] [address], [place] [phone] * (ABNORMAL) Venous blood gas (11/26/2024 3:54 AM EDT) pH, Cameron 7.35 7.32 - 7.42 pH 11/26/2024 4:14 AM EDT [facility] pCO2, Cameron 55(H) 41 - 51 mmHg 11/26/2024 4:14 AM EDT [facility] pO2, Cameron 53(H) 25 - 40 mmHg 11/26/2024 4:14 AM EDT [facility] HCO3, Venous 27.3(H) 22.0 - 26.0 mmol/L 11/26/2024 4:14 AM EDT [facility] O2 Sat, Cameron 90.1 % 11/26/2024 4:14 AM EDT [facility] Base Excess, Cameron 3.4(H) -2.0 - 2.0 mmol/L 11/26/2024 4:14 AM EDT [facility] Blood Venous blood specimen / Unknown Venipuncture / Unknown 11/26/2024 3:54 AM EDT 11/26/2024 4:09 AM EDT Dl Sanchez DO LAB BLOOD ORDERABLES Final R esult [facility] [address] [place] [address], [place] [phone] * (ABNORMAL) Procalcitonin (11/26/2024 3:54 AM EDT) Procalcitonin 0.28(H) <=0.16 ng/mL LAB CHEMISTRY METHOD 11/26/2024 8:55 AM EDT [facility] Blood Venous blood specimen / Unknown Venipuncture / Unknown 11/26/2024 3:54 AM EDT 11/26/2024 4:09 AM EDT Narrative [facility] - 11/26/2024 8:55 AM EDT Procalcitonin > 2.00 ng/ml: Procalcitonin Levels above 2.00 ng/ml, on the first day of ICU admission represent a high risk for progression to severe sepsis and/or septic shock. Procalcitonin < 0.50 ng/ml: Procalcitonin levels below 0.50 ng/ml on the first day of ICU admission represent a low risk for progression to severe sepsis and/or septic shock. Concentrations <0.5 ng/mL do not exclude an infection, on account of local ized infections (without systemic signs) which can be associated with such low concentrations, or a systemic infection in its initial stages (<6 hours). Furthermore, increased procalcitonin can occur without infection. PCT concentrations between 0.5 and 2.0 ng/mL should be interpreted taking into account the patient's history. It is recommended to retest PCT within 6-24 hours if any concentrations <2.0 ng/mL are obtained. Dl Sanchez DO LAB BLOOD ORDERABLES Final R esult [facility] [address] [place] [address], * Phosphorus (11/26/2024 3:54 AM EDT) [facility] Signature Phosphorus 2.6 2.5 - 4.5 mg/dL LAB CHEMISTRY METHOD 11/26/2024 4:34 AM EDT [facility] Blood Venous blood specimen / Unknown Venipuncture / Unknown 11/26/2024 3:54 AM EDT 11/26/2024 4:09 AM EDT [facility] Final R esult Performing Organization Address City/[facility]/ZIP Co de Phone Number [facility] [address] [place] [address], [place] [phone] * Magnesium (11/26/2024 3:54 AM EDT) Magnesium 2.0 1.9 - 2.6 mg/dL LAB CHEMISTRY METHOD 11/26/2024 4:34 AM EDT [facility] Blood Venous blood specimen / Unknown Venipuncture / Unknown 11/26/2024 3:54 AM EDT 11/26/2024 4:09 AM EDT [facility] BLOOD ORDERABLES Final R [facility] Performing Organization Address [facility]/ZIP Co de Phone Number [facility] [address] [place] [address], [place] [phone] * Calcium, ionized (11/26/2024 3:54 AM EDT) [facility] Calcium Ionized 4.98 4.50 - 5.30 mg/dL 11/26/2024 4:15 AM EDT [facility] Blood Venous blood specimen / Unknown Venipuncture / Unknown 11/26/2024 3:54 AM EDT 11/26/2024 4:09 AM EDT [facility] BLOOD ORDERABLES Final R [facility] Performing Organization Address City/[facility]/ZIP Co de Phone Number [facility] [address] [place] [address], [place] [phone] * (ABNORMAL) Basic metabolic panel (11/26/2024 3:54 AM EDT) Sodium 138 133 - 145 mmol/L LAB CHEMISTRY METHOD 11/26/2024 4:34 AM EDT [facility] Potassium 4.3 3.5 - 5.5 mmol/L LAB CHEMISTRY METHOD 11/26/2024 4:34 AM [facility] Chloride 103 96 - 110 mmol/L LAB CHEMISTRY METHOD 11/26/2024 4:34 AM [facility] CO2 30 21 - 32 mmol/L LAB CHEMISTRY METHOD 11/26/2024 4:34 AM [facility] Anion Gap 5 3 - 11 LAB CHEMISTRY METHOD 11/26/2024 4:34 AM [facility] Glucose 232(H) 70 - 100 mg/dL LAB CHEMISTRY METHOD 11/26/2024 4:34 AM [facility] BUN 23 5 - 25 mg/dL LAB CHEMISTRY METHOD 11/26/2024 4:34 AM [facility] Creatinine 1.31(H) 0.50 - 1.10 mg/dL LAB CHEMISTRY METHOD 11/26/2024 4:34 AM [facility] eGFR 42(L) >=60 mL/min/1. 73m2 LAB CHEMISTRY METHOD 11/26/2024 4:34 AM [facility] Comment:Calculation based on the??Chronic Kidney Disease Epidemiology Collaboration (CKD-EPI) equation refit??without adjustment for race. BUN/Creatinine Ratio 17.6 LAB CHEMISTRY METHOD 11/26/2024 4:34 AM [facility] Calcium 8.9 8.5 - 10.5 mg/dL LAB CHEMISTRY METHOD 11/26/2024 4:34 AM [facility] Blood Venous blood specimen / Unknown Venipuncture / Unknown 11/26/2024 3:54 AM EDT 11/26/2024 4:09 AM EDT us Dl Sanchez DO LAB BLOOD ORDERABLES Final R esult [facility] [address] [place] [address], * (ABNORMAL) Troponin I high sensitivity (11/25/2024 10:30 PM EDT) [facility] High Sensitivity Troponin I 931(HH) <=54 ng/L LAB CHEMISTRY METHOD 11/25/2024 11:16 PM EDT [facility] Blood Venous blood specimen / Unknown Venipuncture / Unknown 11/25/2024 10:30 PM EDT 11/25/2024 10:41 PM EDT Narrative [facility] - 11/25/2024 11:16 PM EDT High levels of biotin in samples may falsely decrease hsTroponin values. ??Use caution when interpreting hsTroponin results in patients taking biotin who exhibit renal impairment (eGFR <60) or in patients taking more than 20 mg/day of biotin. Ko Motta MD LAB BLOOD ORDERABLES Final Result Performing Organization Address [facility]/ZIP Co de Phone Number [facility] [address] [place] [address], * Phosphorus (11/25/2024 10:30 PM EDT) [facility] Phosphorus 3.4 2.5 - 4.5 mg/dL LAB CHEMISTRY METHOD 11/25/2024 11:06 PM EDT [facility] Blood Venous blood specimen / Unknown Venipuncture / Unknown 11/25/2024 10:30 PM EDT 11/25/2024 10:41 PM EDT us Dl Sanchez DO LAB BLOOD ORDERABLES Final R esult Performing Organization Address [facility]/ZIP Co de Phone Number [facility] [address] [place] [address], [place] [phone] * Magnesium (11/25/2024 10:30 PM EDT) [facility] Magnesium 1.9 1.9 - 2.6 mg/dL LAB CHEMISTRY METHOD 11/25/2024 11:06 PM EDT [facility] Blood Venous blood specimen / Unknown Venipuncture / Unknown 11/25/2024 10:30 PM EDT 11/25/2024 10:41 PM EDT Dl Rikylane LAB BLOOD ORDERABLES Final R [facility] Performing Organization Address City/[facility]/ZIP Co de Phone Number [facility] [address] [place] [address], [place] [phone] * (ABNORMAL) Calcium, ionized (11/25/2024 10:30 PM EDT) [facility] Calcium Ionized 4.42(L) 4.50 - 5.30 mg/dL 11/25/2024 10:44 PM EDT [facility] Blood Venous blood specimen / Unknown Venipuncture / Unknown 11/25/2024 10:30 PM EDT 11/25/2024 10:41 PM EDT Dl Sanchez LAB BLOOD ORDERABLES Final R [facility] Performing Organization Address [facility] Co de Phone Number [facility] [address] [place] [address], [place] [phone] * (ABNORMAL) Basic metabolic panel (11/25/2024 10:30 PM EDT) [facility] Sodium 138 133 - 145 mmol/L LAB CHEMISTRY METHOD 11/25/2024 11:06 PM EDT [facility] Potassium 4.0 3.5 - 5.5 mmol/L LAB CHEMISTRY METHOD 11/25/2024 11:06 PM EDT [facility] Chloride 103 96 - 110 mmol/L LAB CHEMISTRY METHOD 11/25/2024 11:06 PM EDT [facility] CO2 30 21 - 32 mmol/L LAB CHEMISTRY METHOD 11/25/2024 11:06 PM EDT [facility] Anion Gap 5 3 - 11 LAB CHEMISTRY METHOD 11/25/2024 11:06 PM [facility] Glucose 207(H) 70 - 100 mg/dL LAB CHEMISTRY METHOD 11/25/2024 11:06 PM [facility] BUN 18 5 - 25 mg/dL LAB CHEMISTRY METHOD 11/25/2024 11:06 PM [facility] Creatinine 1.17(H) 0.50 - 1.10 mg/dL LAB CHEMISTRY METHOD 11/25/2024 11:06 PM [facility] eGFR 48(L) >=60 mL/min/1. 73m2 LAB CHEMISTRY METHOD 11/25/2024 11:06 PM [facility] Comment:Calculation based on the??Chronic Kidney Disease Epidemiology Collaboration (CKD-EPI) equation refit??without adjustment for race. BUN/Creatinine Ratio 15.4 LAB CHEMISTRY METHOD 11/25/2024 11:06 PM [facility] Calcium 9.1 8.5 - 10.5 mg/dL LAB CHEMISTRY METHOD 11/25/2024 11:06 PM [facility] Blood Venous blood specimen / Unknown Venipuncture / Unknown 11/25/2024 10:30 PM EDT 11/25/2024 10:41 PM EDT us Dl Sanchez DO LAB BLOOD ORDERABLES Final R esult [facility] [address] [place] [address], * (ABNORMAL) Arterial blood gas (11/25/2024 6:49 PM EDT) pH, Arterial 7.35 7.35 - 7.45 pH 11/25/2024 6:59 PM EDT [facility] pCO2, Arterial 49(H) 35 - 45 mmHg 11/25/2024 6:59 PM EDT [facility] pO2, Arterial 56(LL) 80 - 100 mmHg 11/25/2024 6:59 PM EDT [facility] HCO3, Arterial 25.2 22.0 - 26.0 mmol/L 11/25/2024 6:59 PM EDT [facility] O2 Sat, Arterial 91.9(L) 95.0 - 98.0 % 11/25/2024 6:59 PM EDT [facility] Base Excess, Arterial 0.7 -2.0 - 2.0 mmol/L 11/25/2024 6:59 PM EDT [facility] Blood Arterial blood specimen / Unknown Arterial Puncture / Unknown 11/25/2024 6:49 PM EDT 11/25/2024 6:54 PM EDT us Dl Sanchez DO LAB BLOOD ORDERABLES Final R esult [facility] [address] [place] [address], * ECG 12 lead (11/25/2024 6:40 PM EDT) Ventricular Rate ECG 83 BPM GEMUSE Atrial Rate 83 BPM GEMUSE P-R Interval 152 ms GEMUSE QRS Duration 70 ms GEMUSE Q-T Interval 358 ms GEMUSE QTc 420 ms GEMUSE P Wave [place] 26 degrees GEMUSE R [place] 12 degrees GEMUSE T [place] 64 degrees GEMUSE ECG Interpretation Normal sinus rhythm Septal infarct (cited on or before 13-NOV-2024) Abnormal ECG When compared with ECG of 25-NOV-2024 15:49, No significant change was found Confirmed by Mauro PLASENCIA YUFENG ([id number]) on 11/26/2024 8:17:19 PM GEMUSE 11/25/2024 6:40 PM EDT 11/26/2024 8:17 PM EDT Sheldonelin Anthony MD ECG ORDERABLES Final Result DRE * (ABNORMAL) Venous blood gas (11/25/2024 4:37 PM EDT) pH, Cameron 7.17(LL) 7.32 - 7.42 pH 11/25/2024 4:51 PM EDT [facility] pCO2, Cameron 80(HH) 41 - 51 mmHg 11/25/2024 4:51 PM EDT [facility] pO2, Cameron 20(L) 25 - 40 mmHg 11/25/2024 4:51 PM EDT [facility] HCO3, Venous 21.5(L) 22.0 - 26.0 mmol/L 11/25/2024 4:51 PM EDT [facility] O2 Sat, Cameron 30.5 % 11/25/2024 4:51 PM EDT [facility] Base Excess, Cameron -1.8 -2.0 - 2.0 mmol/L 11/25/2024 4:51 PM EDT [facility] Blood Venous blood specimen / Unknown Venipuncture / Unknown 11/25/2024 4:37 PM EDT 11/25/2024 4:45 PM EDT Sheldonelin Anthony MD LAB BLOOD ORDERABLES Final Resu lt [facility] [address] [place] [address], * Lactate (11/25/2024 4:37 PM EDT) Lactate 1.6 0.4 - 2.0 mmol/L LAB CHEMISTRY METHOD 11/25/2024 5:30 PM EDT [facility] Blood Venous blood specimen / Unknown Venipuncture / Unknown 11/25/2024 4:37 PM EDT 11/25/2024 4:53 PM EDT Sheldon Anthony MD LAB BLOOD ORDERABLES Final Resu lt Performing Organization Address [facility]/ZIP Co de Phone Number [facility] [address] [place] [address], [place] [phone] * (ABNORMAL) Troponin I high sensitivity (NOW and then in 1 hour) (11/25/2024 4:37 PM EDT) [facility] High Sensitivity Troponin I 212(HH) <=54 ng/L LAB CHEMISTRY METHOD 11/25/2024 6:18 PM EDT [facility] Blood Venous blood specimen / Unknown Venipuncture / Unknown 11/25/2024 4:37 PM EDT 11/25/2024 4:54 PM EDT Narrative [facility] - 11/25/2024 6:18 PM EDT High levels of biotin in samples may falsely decrease hsTroponin values. ??Use caution when interpreting hsTroponin results in patients taking biotin who exhibit renal impairment (eGFR <60) or in patients taking more than 20 mg/day of biotin. Sheldon Anthony MD LAB BLOOD ORDERABLES Final Resu lt Performing Organization Address [facility] de Phone Number [facility] [address] [place] [address], [place] [phone] * (ABNORMAL) Urinalysis with reflex microscopic (11/25/2024 4:06 PM EDT) [facility] Specific [place] Urine 1.017 1.003 - 1.030 LAB URINALYSIS - AUTOMATED METHOD 11/25/2024 5:21 PM EDT [facility] pH, Urine 6.5 5.0 - 8.0 pH LAB URINALYSIS - AUTOMATED METHOD 11/25/2024 5:21 PM EDT [facility] Leukocytes, Urine Negative Negative LAB URINALYSIS - AUTOMATED METHOD 11/25/2024 5:21 PM [facility] Nitrite, Urine Negative Negative LAB URINALYSIS - AUTOMATED METHOD 11/25/2024 5:21 PM [facility] Protein, Urine 300(A) <=Trace mg/dL LAB URINALYSIS - AUTOMATED METHOD 11/25/2024 5:21 PM [facility] Glucose, Urine Negative Negative mg/dL LAB URINALYSIS - AUTOMATED METHOD 11/25/2024 5:21 PM [facility] Ketones, Urine Negative Negative mg/dL LAB URINALYSIS - AUTOMATED METHOD 11/25/2024 5:21 PM [facility] Urobilinogen , Urine 0.2 0.2 - 1.0 mg/dL LAB URINALYSIS - AUTOMATED METHOD 11/25/2024 5:21 PM [facility] Bilirubin, Urine Negative Negative LAB URINALYSIS - AUTOMATED METHOD 11/25/2024 5:21 PM [facility] Blood, Urine Moderate(A) Negative LAB URINALYSIS - AUTOMATED METHOD 11/25/2024 5:21 PM [facility] RBC, Urine 28.5(H) 0 - 4 /HPF LAB URINALYSIS - AUTOMATED METHOD 11/25/2024 5:21 PM [facility] WBC, Urine 6.2(H) 0 - 4 /HPF LAB URINALYSIS - AUTOMATED METHOD 11/25/2024 5:21 PM [facility] Squamous Epithelial, Urine >100(H) 0 - 60 /LPF LAB URINALYSIS - AUTOMATED METHOD 11/25/2024 5:21 PM [facility] Non-Squamous Epithelial, Urine Rare Transitional epithelial cells. /LPF 11/25/2024 5:21 PM [facility] Bacteria, Urine Negative Negative /HPF LAB URINALYSIS - AUTOMATED METHOD 11/25/2024 5:21 PM EDT [facility] Hyaline Casts, Urine 2.4 0 - 3 /LPF LAB URINALYSIS - AUTOMATED METHOD 11/25/2024 5:21 PM EDT [facility] Other Casts, Urine 2-5 Fine Granular casts. /LPF 11/25/2024 5:21 PM EDT [facility] Urine Urine specimen obtained by clean catch procedure / Unknown Non-blood Collection / Unknown 11/25/2024 4:06 PM EDT 11/25/2024 4:42 PM EDT Sheldon Gaston Anthony MD LAB URINE ORDERABLES Final Resu lt [facility] [address] [place] [address], [place] [phone] * Respiratory virus panel molecular study (11/25/2024 4:05 PM EDT) Adenovirus Detection by PCR Not Detected Not Detected LAB MICROBIOLOGY METHOD 11/25/2024 5:45 PM EDT [facility] Influenza A PCR Not Detected Not Detected LAB MICROBIOLOGY METHOD 11/25/2024 5:45 PM EDT [facility] Influenza B PCR Not Detected Not Detected LAB MICROBIOLOGY METHOD 11/25/2024 5:45 PM EDT [facility] Coronavirus 229E Not Detected Not Detected LAB MICROBIOLOGY METHOD 11/25/2024 5:45 PM EDT [facility] Coronavirus HKU1 Not Detected Not Detected LAB MICROBIOLOGY METHOD 11/25/2024 5:45 PM EDT [facility] Coronavirus OC43 Not Detected Not Detected LAB MICROBIOLOGY METHOD 11/25/2024 5:45 PM EDT [facility] Coronavirus NL63 Not Detected Not Detected LAB MICROBIOLOGY METHOD 11/25/2024 5:45 PM EDT [facility] Parainfluenza Virus 1 Not Detected Not Detected LAB MICROBIOLOGY METHOD 11/25/2024 5:45 PM EDT [facility] Parainfluenza Virus 2 Not Detected Not Detected LAB MICROBIOLOGY METHOD 11/25/2024 5:45 PM EDT [facility] Parainfluenza Virus 3 Not Detected Not Detected LAB MICROBIOLOGY METHOD 11/25/2024 5:45 PM EDT [facility] Parainfluenza Virus 4 Not Detected Not Detected LAB MICROBIOLOGY METHOD 11/25/2024 5:45 PM EDT [facility] RSV PCR Not Detected Not Detected LAB MICROBIOLOGY METHOD 11/25/2024 5:45 PM EDT [facility] Human Metapneumovirus A and B Not Detected Not Detected LAB MICROBIOLOGY METHOD 11/25/2024 5:45 PM EDT [facility] Rhinovirus/Entero virus Not Detected Not Detected LAB MICROBIOLOGY METHOD 11/25/2024 5:45 PM EDT [facility] Bordetella pertussis Not Detected Not Detected LAB MICROBIOLOGY METHOD 11/25/2024 5:45 PM EDT [facility] Bordetella parapertussis Not Detected Not Detected LAB MICROBIOLOGY METHOD 11/25/2024 5:45 PM EDT [facility] Mycoplasma pneumo by PCR Not Detected Not Detected LAB MICROBIOLOGY METHOD 11/25/2024 5:45 PM EDT [facility] Chlamydia pneumoniae Not Detected Not Detected LAB MICROBIOLOGY METHOD 11/25/2024 5:45 PM EDT [facility] SARS COV-2 Not Detected Not Detected LAB MICROBIOLOGY METHOD 11/25/2024 5:45 PM EDT [facility] Swab Both anterior nares / Unknown Non-blood Collection / Unknown 11/25/2024 4:05 PM EDT 11/25/2024 4:42 PM EDT [facility] - 11/25/2024 5:45 PM EDT Testing was performed using the [employer] Respiratory Pathogen PCR Assay. All results must be correlated with the clinical findings. Results should not be used as the sole basis for diagnosis. False Negative results may occur from the presence of sequence variants in the region targeted by the assay or the presence of inhibitors. Results may be affected by concurrent antiviral/antimicrobial therapy or levels of organisms that are below the limit of detection. [facility] Final Result Performing Organization Address City/[facility]/ZIP Co de Phone Number [facility] [address] [place] [address], * ECG 12 lead (11/25/2024 3:49 PM EDT) Pathologist [facility] Ventricular Rate ECG 91 BPM GEMUSE Atrial Rate 91 BPM GEMUSE P-R Interval 154 ms GEMUSE QRS Duration 86 ms GEMUSE Q-T Interval 350 ms GEMUSE QTc 430 ms GEMUSE P Wave [place] 59 degrees GEMUSE R [place] 5 degrees GEMUSE T [place] 69 degrees GEMUSE ECG Interpretation Normal sinus rhythm Septal infarct (cited on or before 13-NOV-2024) Abnormal ECG When compared with ECG of 13-NOV-2024 11:48, No significant change was found Confirmed by LEOBARDO VALDERRAMA ([id number]) on 11/25/2024 9:29:17 PM GEMUSE 11/25/2024 3:49 PM EDT 11/25/2024 9:29 PM EDT [facility] MD ECG ORDERABLES Final Result Performing Organization Address [facility]/ZIP Co de Phone Number GEMUSE * Procalcitonin (11/25/2024 3:41 PM EDT) Procalcitonin <0.02 <=0.16 ng/mL LAB CHEMISTRY METHOD 11/26/2024 9:31 AM EDT [facility] Blood Venous blood specimen / Unknown Venipuncture / Unknown 11/25/2024 3:41 PM EDT 11/25/2024 3:47 PM EDT Narrative [facility] - 11/26/2024 9:31 AM EDT Procalcitonin > 2.00 ng/ml: Procalcitonin Levels above 2.00 ng/ml, on the first day of ICU admission represent a high risk for progression to severe sepsis and/or septic shock. Procalcitonin < 0.50 ng/ml: Procalcitonin levels below 0.50 ng/ml on the first day of ICU admission represent a low risk for progression to severe sepsis and/or septic shock. Concentrations <0.5 ng/mL do not exclude an infection, on account of local ized infections (without systemic signs) which can be associated with such low concentrations, or a systemic infection in its initial stages (<6 hours). Furthermore, increased procalcitonin can occur without infection. PCT concentrations between 0.5 and 2.0 ng/mL should be interpreted taking into account the patient's history. It is recommended to retest PCT within 6-24 hours if any concentrations <2.0 ng/mL are obtained. Dl Sanchez LAB BLOOD ORDERABLES Final R esult Performing Organization Address City/[facility]/ZIP Co de Phone Number [facility] [address] [place] [address], [place] [phone] * Thyroid stimulating hormone (11/25/2024 3:41 PM EDT) TSH 0.48 0.40 - 4.00 mcIU/mL LAB CHEMISTRY METHOD 11/25/2024 6:19 PM EDT [facility] Blood Venous blood specimen / Unknown Venipuncture / Unknown 11/25/2024 3:41 PM EDT 11/25/2024 3:47 PM EDT Dl RikyCaro Nut LAB BLOOD ORDERABLES Final R esult Performing Organization Address [facility]/ZIP Co de Phone Number [facility] [address] [place] [address], [place] [phone] * (ABNORMAL) Phosphorus (11/25/2024 3:41 PM EDT) Phosphorus 8.1(H) 2.5 - 4.5 mg/dL LAB CHEMISTRY METHOD 11/25/2024 5:56 PM EDT [facility] Blood Venous blood specimen / Unknown Venipuncture / Unknown 11/25/2024 3:41 PM EDT 11/25/2024 3:47 PM EDT [facility] BLOOD ORDERABLES Final R esult Performing Organization Address [facility]/ZIP Co de Phone Number [facility] [address] [place] [address], [place] [phone] * (ABNORMAL) Magnesium (11/25/2024 3:41 PM EDT) [facility] Magnesium 3.4(H) 1.9 - 2.6 mg/dL LAB CHEMISTRY METHOD 11/25/2024 5:56 PM EDT [facility] Blood Venous blood specimen / Unknown Venipuncture / Unknown 11/25/2024 3:41 PM EDT 11/25/2024 3:47 PM EDT [facility] LAB BLOOD ORDERABLES Final R esult Performing Organization Address City/[facility]/ZIP Co de Phone Number [facility] [address] [place] [address], [place] [phone] * (ABNORMAL) CBC auto differential (11/25/2024 3:41 PM EDT) [facility] WBC 13.7(H) 4.8 - 10.8 K/[facility] LAB HEMETOLOGY METHOD 11/25/2024 3:50 PM EDT [facility] RBC 4.70 3.80 - 4.80 M/[facility] LAB HEMETOLOGY METHOD 11/25/2024 3:50 PM EDT [facility] Hemoglobin 15.0 11.5 - 16.0 g/dL LAB HEMETOLOGY METHOD 11/25/2024 3:50 PM EDT [facility] Hematocrit 46.5 35.0 - 47.0 % LAB HEMETOLOGY METHOD 11/25/2024 3:50 PM EDT [facility] MCV 98.7(H) 79.0 - 98.0 FL LAB HEMETOLOGY METHOD 11/25/2024 3:50 PM EDT [facility] MCH 31.8 27.0 - 32.0 pcg LAB HEMETOLOGY METHOD 11/25/2024 3:50 PM EDT [facility] MCHC 32.3 32.0 - 37.0 g/dL LAB HEMETOLOGY METHOD 11/25/2024 3:50 PM EDT [facility] RDW 12.0 11.0 - 15.0 % LAB HEMETOLOGY METHOD 11/25/2024 3:50 PM EDT [facility] Platelets 205 130 - 400 K/mcL LAB HEMETOLOGY METHOD 11/25/2024 3:50 PM EDT [facility] MPV 10.5 7.0 - 11.0 FL LAB HEMETOLOGY METHOD 11/25/2024 3:50 PM EDT [facility] NRBC 0.0 <1.0 % LAB HEMETOLOGY METHOD 11/25/2024 3:50 PM EDT [facility] NRBC Absolute 0.00 <0.10 K/mcL LAB HEMETOLOGY METHOD 11/25/2024 3:50 PM EDT [facility] Neutrophils Relative 60.1 % LAB HEMETOLOGY METHOD 11/25/2024 3:50 PM EDT [facility] Lymphocytes Relative 27.5 % LAB HEMETOLOGY METHOD 11/25/2024 3:50 PM EDT [facility] Monocytes Relative 7.3 % LAB HEMETOLOGY METHOD 11/25/2024 3:50 PM EDT [facility] Eosinophils Relative 3.9 % LAB HEMETOLOGY METHOD 11/25/2024 3:50 PM EDT [facility] Basophils Relative 0.5 % LAB HEMETOLOGY METHOD 11/25/2024 3:50 PM EDT [facility] Immature Granulocytes Relative 0.7 % LAB HEMETOLOGY METHOD 11/25/2024 3:50 PM EDT [facility] Neutrophils Absolute 8.20(H) 1.50 - 7.00 K/mcL LAB HEMETOLOGY METHOD 11/25/2024 3:50 PM EDT [facility] Lymphocytes Absolute 3.76 1.00 - 5.00 K/mcL LAB HEMETOLOGY METHOD 11/25/2024 3:50 PM EDT [facility] Monocytes Absolute 1.00 0.20 - 1.00 K/mcL LAB HEMETOLOGY METHOD 11/25/2024 3:50 PM EDT [facility] Eosinophils Absolute 0.53(H) 0.00 - 0.50 K/mcL LAB HEMETOLOGY METHOD 11/25/2024 3:50 PM EDT [facility] Basophils Absolute 0.07 0.00 - 0.20 K/mcL LAB HEMETOLOGY METHOD 11/25/2024 3:50 PM EDT [facility] Immature Granulocytes Absolute 0.10(H) 0.00 - 0.03 K/mcL LAB HEMETOLOGY METHOD 11/25/2024 3:50 PM EDT [facility] Blood Venous blood specimen / Unknown Venipuncture / Unknown 11/25/2024 3:41 PM EDT 11/25/2024 3:47 PM EDT us Sheldon Anthony MD LAB BLOOD ORDERABLES Final Resu lt [facility] [address] [place] [address], [place] [phone] * (ABNORMAL) Hepatic function panel (11/25/2024 3:41 PM EDT) Total Protein 7.6 6.0 - 8.0 g/dL LAB CHEMISTRY METHOD 11/25/2024 4:32 PM EDT [facility] Albumin 3.6 3.2 - 5.0 g/dL LAB CHEMISTRY METHOD 11/25/2024 4:32 PM EDT [facility] Total Bilirubin 0.3 0.0 - 1.4 mg/dL LAB CHEMISTRY METHOD 11/25/2024 4:32 PM EDT [facility] Bilirubin, Direct 0.1 0.0 - 0.3 mg/dL LAB CHEMISTRY METHOD 11/25/2024 4:32 PM EDT [facility] Bilirubin, Indirect 0.2 0.0 - 1.1 mg/dL LAB CHEMISTRY METHOD 11/25/2024 4:32 PM EDT [facility] ALT (SGPT) 39 10 - 60 unit/L LAB CHEMISTRY METHOD 11/25/2024 4:32 PM EDT [facility] AST (SGOT) 60(H) 10 - 42 unit/L LAB CHEMISTRY METHOD 11/25/2024 4:32 PM EDT [facility] Comment:Hemolysis present Alkaline Phosphatase 174(H) 42 - 121 unit/L LAB CHEMISTRY METHOD 11/25/2024 4:32 PM EDT [facility] Blood Venous blood specimen / Unknown Venipuncture / Unknown 11/25/2024 3:41 PM EDT 11/25/2024 3:47 PM EDT us Sheldon Anthony MD LAB BLOOD ORDERABLES Final Resu lt [facility] [address] [place] [address], * (ABNORMAL) Basic metabolic panel (11/25/2024 3:41 PM EDT) Sodium 136 133 - 145 mmol/L LAB CHEMISTRY METHOD 11/25/2024 4:32 PM [facility] Potassium 4.7 3.5 - 5.5 mmol/L LAB CHEMISTRY METHOD 11/25/2024 4:32 PM [facility] Comment:Hemolysis present Chloride 105 96 - 110 mmol/L LAB CHEMISTRY METHOD 11/25/2024 4:32 PM [facility] CO2 25 21 - 32 mmol/L LAB CHEMISTRY METHOD 11/25/2024 4:32 PM [facility] Anion Gap 6 3 - 11 LAB CHEMISTRY METHOD 11/25/2024 4:32 PM [facility] Glucose 228(H) 70 - 100 mg/dL LAB CHEMISTRY METHOD 11/25/2024 4:32 PM [facility] BUN 17 5 - 25 mg/dL LAB CHEMISTRY METHOD 11/25/2024 4:32 PM [facility] Creatinine 1.14(H) 0.50 - 1.10 mg/dL LAB CHEMISTRY METHOD 11/25/2024 4:32 PM [facility] eGFR 50(L) >=60 mL/min/1. 73m2 LAB CHEMISTRY METHOD 11/25/2024 4:32 PM [facility] Comment:Calculation based on the??Chronic Kidney Disease Epidemiology Collaboration (CKD-EPI) equation refit??without adjustment for race. BUN/Creatinine Ratio 14.9 LAB CHEMISTRY METHOD 11/25/2024 4:32 PM [facility] Calcium 9.4 8.5 - 10.5 mg/dL LAB CHEMISTRY METHOD 11/25/2024 4:32 PM [facility] Blood Venous blood specimen / Unknown Venipuncture / Unknown 11/25/2024 3:41 PM EDT 11/25/2024 3:47 PM EDT Sheldon Anthony MD LAB BLOOD ORDERABLES Final Resu lt Performing Organization Address [facility] Co de Phone Number [facility] [address] [place] [address], [place] [phone] * (ABNORMAL) Troponin I high sensitivity (NOW and then in 1 hour) (11/25/2024 3:41 PM EDT) High Sensitivity Troponin I 55(H) <=54 ng/L LAB CHEMISTRY METHOD 11/25/2024 4:32 PM EDT [facility] Blood Venous blood specimen / Unknown Venipuncture / Unknown 11/25/2024 3:41 PM EDT 11/25/2024 3:47 PM EDT Narrative [facility] - 11/25/2024 4:32 PM EDT High levels of biotin in samples may falsely decrease hsTroponin values. ??Use caution when interpreting hsTroponin results in patients taking biotin who exhibit renal impairment (eGFR <60) or in patients taking more than 20 mg/day of biotin. us Sheldon Anthony MD LAB BLOOD ORDERABLES Final Resu lt Performing Organization Address [facility] Co de Phone Number [facility] [address] [place] [address], [place] [phone] * (ABNORMAL) B-type natriuretic peptide (11/25/2024 3:41 PM EDT) BNP 109(H) <=100 pcg/mL LAB CHEMISTRY METHOD 11/25/2024 4:32 PM EDT [facility] Blood Venous blood specimen / Unknown Venipuncture / Unknown 11/25/2024 3:41 PM EDT 11/25/2024 3:47 PM EDT Sheldon Anthony MD LAB BLOOD ORDERABLES Final Resu lt Performing Organization Address City/[facility]/ZIP Co de Phone Number [facility] [address] [place] [address], [place] [phone] * (ABNORMAL) Venous blood gas (11/25/2024 3:41 PM EDT) pH, Cameron 7.12(LL) 7.32 - 7.42 pH 11/25/2024 4:05 PM EDT [facility] pCO2, Cameron 82(HH) 41 - 51 mmHg 11/25/2024 4:05 PM EDT [facility] pO2, Cameron 77(H) 25 - 40 mmHg 11/25/2024 4:05 PM EDT [facility] HCO3, Venous 20.8(L) 22.0 - 26.0 mmol/L 11/25/2024 4:05 PM EDT [facility] O2 Sat, Cameron 95.7 % 11/25/2024 4:05 PM EDT [facility] Base Excess, Cameron -5.1(L) -2.0 - 2.0 mmol/L 11/25/2024 4:05 PM EDT [facility] Blood Venous blood specimen / Unknown Venipuncture / Unknown 11/25/2024 3:41 PM EDT 11/25/2024 3:46 PM EDT Sheldon Anthony MD LAB BLOOD ORDERABLES Final Resu lt [facility] [address] [place] [address], [place] [phone] * XR Chest 1 View (11/25/2024 3:30 PM EDT) Anatomical Region Laterality Modality Body Radiographic Mireya ging 11/25/2024 5:06 PM EDT Impressions 11/25/2024 5:07 PM EDT FINDINGS/IMPRESSION: Normal heart size. ??Increased interstitial opacities suggestive of vascular congestion/overload. ??Superimposed infectious/inflammatory process could also be considered. ??No significant pleural effusion. ??No pneumothorax. -------- FINAL REPORT -------- Dictated By: Hosea Velez Dictated Date: 11/25/2024 17:06 ET Assigned Physician: Hosea Velez Reviewed and Electronically Signed By: Hosea Velez Signed Date: 11/25/2024 17:07 ET Workstation ID: [id number] Transcribed By: Self Edit Transcribed Date: 11/25/2024 17:06 ET Narrative 11/25/2024 5:07 PM EDT XR CHEST 1 VIEW INDICATION: dyspnea TECHNIQUE: XR CHEST 1 VIEW COMPARISON: No priors available. Procedure Note Hosea Velez MD - 11/25/2024 XR CHEST 1 VIEW INDICATION: dyspnea TECHNIQUE: XR CHEST 1 VIEW COMPARISON: No priors available. IMPRESSION: FINDINGS/IMPRESSION: Normal heart size. Increased interstitial opacitiessuggestive of vascular congestion/overload. Superimposedinfectious/inflammatory process could also be considered. No significantpleural effusion. No pneumothorax. -------- FINAL REPORT -------- Dictated By: Hosea Velez Dictated Date: 11/25/2024 17:06 ET Assigned Physician: Hosea Velez Reviewed and Electronically Signed By: Hosea Velez Signed Date: 11/25/2024 17:07 ET Workstation ID: [id number] Transcribed By: Self Edit Transcribed Date: 11/25/2024 17:06 ET us Nasim Conley DO IMG XR PROCEDURES Final Res ult * OK CRITICAL CARE 30-74 MINUTES (11/25/2024 3:16 PM EDT) Narrative Sheldon Anthony MD - 11/25/2024 3:16 PM EDT Sheldon Anthony MD ? 11/25/2024 ??8:20 PM Critical Care Performed by: Sheldon Anthony MD Authorized by: Sheldon Anthony MD ?? Critical care provider statement: ??Critical care time (minutes): ??80 ??Critical care time was exclusive of: ??Separately billable procedures and treating other patients ??Critical care was necessary to treat or prevent imminent or life-threatening deterioration of the following conditions: ??Respiratory failure ??Critical care was time spent personally by me on the following activities: ??Development of treatment plan with patient or surrogate, discussions with consultants, pulse oximetry, re-evaluation of patient's condition, review of old charts, ordering and review of radiographic studies, ordering and review of laboratory studies, ordering and performing treatments and interventions, examination of patient, evaluation of patient's response to treatment and obtaining history from patient or surrogate ??I assumed direction of critical care for this patient from another provider in my specialty: no ?Care discussed with: admitting provider ?? Comments: ?? 74Y F presents with CC of shortness of breath, hypoxia, lethargy, respiratory distress, with wheezes and ronchi diffusely, hypertensive to 230s systolic, tachypnea to the 40s, requiring emergent evaluation and frequent reassessments, intervention with non-mechanical ventilation, nitroglycerin drip, and IV lasix due to concern for acute pulmonary edema, hypertensive emergency, and COPD exacerbation. Found to be acidotic on VBG, with hypercarbia. Sheldon Anthony MD IN CLINIC/BEDSIDE ORDERABLES Fi nal Result documented in this encounter Visit Diagnoses Diagnosis Acute respiratory failure with hypoxia and hypercapnia ([facility] V24, [facility] V28)- Primary Acute respiratory failure with hypoxia and hypercapnia ([facility] V24, [facility] V28) Acute pulmonary edema ([facility] V24, [facility] V28) Unspecified acute edema of lung COPD exacerbation ([facility] V24, [facility] V28) Obstructive chronic bronchitis with exacerbation Hypertensive emergency Stage 3 chronic kidney disease, unspecified whether stage 3a or 3b CKD ([facility] V24, [facility] V28) Chronic obstructive pulmonary disease with acute exacerbation ([facility] V24, [facility] V28) documented in this encounter Admitting Diagnoses Diagnosis Acute respiratory failure with hypoxia and hypercapnia ([facility] V24, [facility] V28) documented in this encounter Administered Medications Inactive Administered Medications - up to 3 most recent administrations Medication Order MAR Action Action Date Dose Rate Site acetaminophen (TYLENOL) tablet 650 mg 650 mg, oral, Every 4 hours PRN, mild pain, fever - temperature GREATER than 38 C (100.4 F), headaches, Starting on 11/25/25 at 2024, FIRST CHOICE MEDICATION FOR MILD PAIN (1-3) IF INEFFECTIVE AFTER 60 MIN, PROCEED TO SECOND CHOICE MEDICATION albuterol 2.5 mg /3 mL (0.083 %) nebulizer solution 2.5 mg 2.5 mg, nebulization, Every 6 hours PRN, wheezing, Starting on Mon11/25/24 at 1808 albuterol 2.5 mg /3 mL (0.083 %) nebulizer solution 5 mg 5 mg, nebulization, Once, On Mon11/25/24 at 1553, For 1 dose Given 11/25/2024 3:52 PM EDT 5 mg ARIPiprazole (ABILIFY) tablet 5 mg 5 mg, oral, Daily, First dose on Mon11/26/24 at 0900 Given 11/26/2024 8:31 AM EDT 5 mg atorvastatin (LIPITOR) tablet 10 mg 10 mg, oral, Nightly, First dose on Mon11/25/24 at 2100 Given 11/25/2024 9:34 PM EDT 10 mg carvediloL (COREG) tablet 12.5 mg 12.5 mg, oral, 2 times daily, First dose on Mon11/25/24 at 2100 Given 11/26/2024 8:31 AM EDT 12.5 mg Given 11/25/2024 9:34 PM EDT 12.5 mg cefTRIAXone (ROCEPHIN) 2 g in sterile water 20 mL IV syringe 2 g, intravenous, at 400 mL/hr, Administer over 3 Minutes, Once, On Mon11/25/24 at 1623, For 1 dose, Do not administer simultaneously with any calcium containing solutions via a Y-site in any patient., Indication: Pneumonia, Community Acquired Given 11/25/2024 5:35 PM EDT 2 g 4 00 mL/hr cloNIDine (CATAPRES) tablet 0.1 mg 0.1 mg, oral, 2 times daily, First dose on Mon11/25/24 at 2100 Given 11/26/2024 8:31 AM EDT 0.1 mg Given 11/25/2024 9:44 PM EDT 0.1 mg clopidogreL (PLAVIX) tablet 75 mg 75 mg, oral, Daily, First dose on Mon11/25/24 at 1835 Given 11/26/2024 8:31 AM EDT 75 mg diazePAM (VALIUM) tablet 10 mg 10 mg, oral, Every 8 hours PRN, anxiety, Starting on Mon11/25/24 at 1834, for anxiety Given 11/26/2024 8:31 AM EDT 10 mg Given for Pain 11/25/2024 8:00 PM EDT 10 mg docusate sodium (COLACE) capsule 100 mg 100 mg, oral, Daily, First dose on Mon11/25/24 at 1835 Given 11/25/2024 7:50 PM EDT 100 mg enoxaparin (LOVENOX) injection 40 mg 40 mg, subcutaneous, Every 24 hours scheduled, First dose on Mon11/25/24 at 1752, Indication: VTE/PE Prophylaxis Given 11/26/2024 8:30 AM EDT 40 mg Left Lower Abdomen furosemide (LASIX) injection 40 mg 40 mg, intravenous, Once, On Mon11/25/24 at 1525, For 1 dose Given 11/25/2024 3:32 PM EDT 40 mg furosemide (LASIX) injection 40 mg 40 mg, intravenous, Once, On Mon11/25/24 at 1532, For 1 dose Given 11/25/2024 3:34 PM EDT 40 mg ipratropium-albuteroL (DUONEB) 0.5-2.5 mg/3 mL nebulizer solution 3 mL 3 mL, nebulization, 4 times daily, First dose on Mon11/25/24 at 2000 Given 11/26/2024 4:25 PM EDT 3 mL Given 11/26/2024 1:04 PM EDT 3 mL Given 11/26/2024 9:15 AM EDT 3 mL levoFLOXacin (LEVAQUIN) IVPB 750 mg 750 mg, intravenous, at 100 mL/hr, Administer over 90 Minutes, Every 48 hours, First dose on Mon11/25/24 at 1826, For 7 days, Indication: Pneumonia, Nosocomial New Bag 11/25/2024 9:38 PM EDT 750 mg 100 mL/hr melatonin tablet 3 mg 3 mg, oral, Once, On Mon11/26/24 at 0045, For 1 dose Given 11/26/2024 12:49 AM EDT 3 mg methylPREDNISolone sodium succ (SOLU-Medrol) injection 40 mg 40 mg, intravenous, Every 6 hours scheduled, First dose on Mon11/25/24 at 1800, Reconstitute each 40 mg vial with 1 mL sterile water for injection to a concentration of 40 mg/mL. Given 11/26/2024 6:13 AM EDT 40 mg Given 11/26/2024 1:00 AM EDT 40 mg Given for Pain 11/25/2024 7:59 PM EDT 40 mg metoclopramide (REGLAN) injection 10 mg 10 mg, intravenous, Once, On Mon11/25/24 at 1548, For 1 dose, Doses LESS than or equal to 10 mg can be given IV push undiluted over 1 minute Given 11/25/2024 5:33 PM EDT 10 mg mirtazapine (REMERON) tablet 22.5 mg 22.5 mg, oral, Nightly, First dose on Mon11/25/24 at 2100 Given 11/25/2024 9:34 PM EDT 22.5 mg nicotine (NICODERM CQ) 14 mg/24 hr patch 1 patch 1 patch, transdermal, Administer over 24 Hours, Daily, First dose on Mon11/25/24 at 1829 Patch Applied 11/25/2024 7:51 PM EDT 1 patch Right Arm nitroglycerin (TRIDIL) 50 mg in dextrose 5 % 250 mL (200 mcg/mL) infusion (premix) 5-200 mcg/min (1.5-60 mL/hr), intravenous, Continuous, Starting on Mon11/25/24 at 1525, GOAL EFFECT: SBP LESS than 160 mmHg or MAP LESS than 110 mmHg or angina relief INITIAL RATE: 5 mcg/min USUAL DOSE RANGE: 5 - 200 mcg/min TITRATION DOSE: 5 mcg/min TITRATION FREQUENCY: 5 min CONTACT PRESCRIBER: -SBP LESS than 90 mmHg -SBP GREATER than 180 mmHg *Individual cases may require deviation from parameters (with prescriber approval)* Rate/Dose Change 11/25/2024 5:19 PM EDT 10 mcg/min 3 mL/hr Rate/Dose Verify 11/25/2024 5:06 PM EDT 15 mcg/min 4.5 mL/ hr Rate/Dose Change 11/25/2024 4:48 PM EDT 15 mcg/min 4.5 mL/ hr ondansetron (PF) (ZOFRAN) injection 4 mg 4 mg, intravenous, Once, On Mon11/25/24 at 1529, For 1 dose Given 11/25/2024 3:44 PM EDT 4 mg phenytoin (DILANTIN) ER capsule 100 mg 100 mg, oral, 2 times daily, First dose on Mon11/25/24 at 2100, Hold enteral nutrition at least 1 hour before and 2 hours after dose. Monitor drug levels. HAZARDOUS Drug Precautions - Low Risk (Category A/NIOSH Group 3) Reproductive Risk Only: - Do NOT split, crush, or open dosage units - Single pair of ASTM standard D6978 certified chemotherapy gloves - Eye protection (goggles or face shield) required only with a potential for facial contact (i.e. concern for spitting or vomiting of the dose during or after administration) Given 11/26/2024 8:31 AM EDT 100 mg Given 11/25/2024 10:30 PM EDT 100 mg predniSONE (DELTASONE) tablet 40 mg 40 mg, oral, Daily, First dose (after last modification) on Mon11/27/24 at 0900, For 5 days revefenacin (YUPELRI) 175 mcg/3 mL nebulizer solution 175 mcg 175 mcg, nebulization, Daily, First dose on Mon11/25/24 at 1835 Given 11/26/2024 9:15 AM EDT 175 mcg documented in this encounter Active and Recently Administered Medications Times are shown in EDT. Scheduled Medication Order 11/24/2024 11/25/2024 11/26/2024 albuterol 2.5 mg /3 mL (0.083 %) nebulizer solution 5 mg (COMPLETED) 5 mg, nebulization, Once, On Mon11/25/24 at 1553, For 1 dose 1552 (Given - Provider: Isa Mays, [employer] WET) ARIPiprazole (ABILIFY) tablet 5 mg 5 mg, oral, Daily, First dose on Mon11/26/24 at 0900 0831 (Given - Provid er: Joni Rivas RN) atorvastatin (LIPITOR) tablet 10 mg 10 mg, oral, Nightly, First dose on Mon11/25/24 at 2100 213 (Given - Provider: Isa Arango, RAYMOND) carvediloL (COREG) tablet 12.5 mg 12.5 mg, oral, 2 times daily, First dose on Mon11/25/24 at 2099 213 (Given - Provider: Isa Arango RN) 0831 (Given - Provider: Joni Rivas RN) cefTRIAXone (ROCEPHIN) 2 g in sterile water 20 mL IV syringe (COMPLETED) 2 g, intravenous, at 400 mL/hr, Administer over 3 Minutes, Once, On Mon11/25/24 at 1623, For 1 dose, Do not administer simultaneously with any calcium containing solutions via a Y-site in any patient., Indication: Pneumonia, Community Acquired 1734 (Given - Provider: Jessica Miles RN - Comment: BLOOD CULTURES) cloNIDine (CATAPRES) tablet 0.1 mg 0.1 mg, oral, 2 times daily, First dose on Mon11/25/24 at 2100 2143 (Given - Provider: Isa Arango RN) 0831 (Given - Provider: Joni Rivas RN) clopidogreL (PLAVIX) tablet 75 mg 75 mg, oral, Daily, First dose on Mon11/25/24 at 1832015 (Not Given - Provider: Jessica Miles RN - Reason: Other - Comment: PER PROVIDER) 0831 (Given - Provider: Joni Rivas RN) cycloSPORINE (RESTASIS) 0.05 % ophthalmic emulsion 1 drop 1 drop, Both Eyes, 2 times daily, First dose on Mon11/25/24 at 2100, HAZARDOUS Drug Precautions - Medium Risk (Category B/NIOSH Group 2) Non-antineoplastic and Reproductive Risk: - Single pair of ASTM standard D6978 certified chemotherapy gloves - Eye protection (goggles or face shield) required only with a potential for facial contact (i.e. concern for spitting or vomiting of the dose during or after administration) - Staff at reproductive risk (actively trying to conceive, or may be become , and ): chemotherapy gown 2143 (Not Given - Provider: Isa Arango RN - Reason: Patient/Resident/Agent refused - education provided ) 0834 (Not Given - Provider: Joni Rivas RN - Reason: Patient/Resident/Agent refused - education provided ) docusate sodium (COLACE) capsule 100 mg 100 mg, oral, Daily, First dose on Mon11/25/24 at 1835 1950 (Given - Provider: Jessica Miles RN) 0834 (Not Given - Provider: Joni Rivas RN - Reason: Patient/Resident/Agent refused - education provided ) enoxaparin (LOVENOX) injection 40 mg 40 mg, subcutaneous, Every 24 hours scheduled, First dose on Mon11/25/24 at 1752, Indication: VTE/PE Prophylaxis 2014 (Not Given - Provider: Jessica Miles RN - Reason: Other - Comment: PER PROVIDER FIRST DOSE TOMORROW 0900) 0830 (Given - Provider: Joni Rivas RN) furosemide (LASIX) injection 40 mg (COMPLETED) 40 mg, intravenous, Once, On Mon11/25/24 at 1525, For 1 dose 1532 (Given - Provider: Jessica Miles, RN) furosemide (LASIX) injection 40 mg (COMPLETED) 40 mg, intravenous, Once, On Mon11/25/24 at 1532, For 1 dose 1534 (Given - Provider: Jessica Miles RN) ipratropium-albuteroL (DUONEB) 0.5-2.5 mg/3 mL nebulizer solution 3 mL 3 mL, nebulization, 4 times daily, First dose on Mon11/25/24 at 2000 2011 (Given - Provider: Jessica Miles RN) 0915 (Given - Provider: Deangelo Ling, PRIMER POWDER BLENDER WET)1304 (Given - Provider: Deangelo Ling, TREY)1625 (Given - Provider: Gina Elizaebth, TREY)1999 (Canceled Entry - Provider: Automatic Discharge Provider - Comment: Automatically canceled at discontinue of medication order) levoFLOXacin (LEVAQUIN) IVPB 750 mg (CANCELED) 750 mg, intravenous, at 100 mL/hr, Administer over 90 Minutes, Every 48 hours, First dose on Mon11/25/24 at 1826, For 7 days, Indication: Pneumonia, Nosocomial 2137 (New Bag - Provider: Isa Arango, RAYMOND)2257 (Stopped - Provider: Isa Arango RN) melatonin tablet 3 mg (COMPLETED) 3 mg, oral, Once, On Mon11/26/24 at 0045, For 1 dose 0049 (Given - Provid er: Isa Arango RN) methylPREDNISolone sodium succ (SOLU-Medrol) injection 40 mg (CANCELED) 40 mg, intravenous, Every 6 hours scheduled, First dose on Mon11/25/24 at 1800, Reconstitute each 40 mg vial with 1 mL sterile water for injection to a concentration of 40 mg/mL. 195 (Given for Pain - Provider: Jessica Miles RN) 010 (Given - Provider: Isa Arango RN)0613 (Given - Provider: Isa Arango, RAYMOND) metoclopramide (REGLAN) injection 10 mg (COMPLETED) 10 mg, intravenous, Once, On Mon11/25/24 at 1548, For 1 dose, Doses LESS than or equal to 10 mg can be given IV push undiluted over 1 minute 1733 (Given - Provider: Jessica Miles RN) mirtazapine (REMERON) tablet 22.5 mg 22.5 mg, oral, Nightly, First dose on Mon11/25/24 at 2100 2134 (Given - Provider: Isa Arango RN) nicotine (NICODERM CQ) 14 mg/24 hr patch 1 patch 1 patch, transdermal, Administer over 24 Hours, Daily, First dose on Mon11/25/24 at 1829 1950 (Patch Applied - Provider: Jessica Miles RN) 0821 (Patch Removed - Provider: Joni Rivas, RAYMOND)0822 (Not Given - Provider: Joni Rivas RN - Reason: Patient/Resident/Agent refused - education provided ) ondansetron (PF) (ZOFRAN) injection 4 mg (COMPLETED) 4 mg, intravenous, Once, On Mon11/25/24 at 1529, For 1 dose 1544 (Given - Provider: Qing Murray RN) phenytoin (DILANTIN) ER capsule 100 mg 100 mg, oral, 2 times daily, First dose on Mon11/25/24 at 2100, Hold enteral nutrition at least 1 hour before and 2 hours after dose. Monitor drug levels. HAZARDOUS Drug Precautions - Low Risk (Category A/NIOSH Group 3) Reproductive Risk Only: - Do NOT split, crush, or open dosage units - Single pair of ASTM standard D6978 certified chemotherapy gloves - Eye protection (goggles or face shield) required only with a potential for facial contact (i.e. concern for spitting or vomiting of the dose during or after administration) 2229 (Given - Provider: Ias C Arango, RN) 0831 (Given - Provider: Joni Rivas RN) predniSONE (DELTASONE) tablet 40 mg 40 mg, oral, Daily, First dose (after last modification) on Mon11/27/24 at 0900, For 5 days revefenacin (YUPELRI) 175 mcg/3 mL nebulizer solution 175 mcg 175 mcg, nebulization, Daily, First dose on Mon11/25/24 at 1835 1848 (Not Given - Provider: Isa Mays, PRIMER POWDER BLENDER WET - Reason: Other - Comment: NI) 0915 (Given - Provider: Deangelo Ling, TREY) Continuous Medication Order 11/24/2024 11/25/2024 11/26/2024 nitroglycerin (TRIDIL) 50 mg in dextrose 5 % 250 mL (200 mcg/mL) infusion (premix) (CANCELED) 5-200 mcg/min (1.5-60 mL/hr), intravenous, Continuous, Starting on Mon11/25/24 at 1525, GOAL EFFECT: SBP LESS than 160 mmHg or MAP LESS than 110 mmHg or angina relief INITIAL RATE: 5 mcg/min USUAL DOSE RANGE: 5 - 200 mcg/min TITRATION DOSE: 5 mcg/min TITRATION FREQUENCY: 5 min CONTACT PRESCRIBER: -SBP LESS than 90 mmHg -SBP GREATER than 180 mmHg *Individual cases may require deviation from parameters (with prescriber approval)* 1533 (New Bag - Provider: Jessica Miles RN - Comment: per provider 200mcg/min to start. bp 200/121 hr 97)1535 (Rate/Dose Change - Provider: Jessica Miles RN - Comment: per md)1540 (Rate/Dose Change - Provider: Jessica Miles RN - Comment: PER MD)1542 (Rate/Dose Change - Provider: Qing Murray RN - Comment: per )1545 (Rate/Dose Change - Provider: Qing Murray RN - Comment: per )1547 (Rate/Dose Change - Provider: Qing Murray RN)1548 (Rate/Dose Change - Provider: Qing Murray RN - Comment: per )1553 (Rate/Dose Change - Provider: Jessica Miles RN)1559 (Rate/Dose Change - Provider: Jessica Miles RN)1627 (Rate/Dose Verify - Provider: Jessica Miles RN)1648 (Rate/Dose Change - Provider: Jessica Miles RN)1706 (Rate/Dose Verify - Provider: Jessica Miles RN)1719 (Rate/Dose Change - Provider: Jessica Miles RN)1722 (Paused - Provider: Jessica Miles RN)1809 (Stopped - Provider: Jessica Miles RN) PRN Medication Order 11/24/2024 11/25/2024 11/26/2024 acetaminophen (TYLENOL) tablet 650 mg 650 mg, oral, Every 4 hours PRN, mild pain, fever - temperature GREATER than 38 C (100.4 F), headaches, Starting on Mon11/25/24 at 202, FIRST CHOICE MEDICATION FOR MILD PAIN (1-3) IF INEFFECTIVE AFTER 60 MIN, PROCEED TO SECOND CHOICE MEDICATION albuterol 2.5 mg /3 mL (0.083 %) nebulizer solution 2.5 mg 2.5 mg, nebulization, Every 6 hours PRN, wheezing, Starting on Mon11/25/24 at 1808 diazePAM (VALIUM) tablet 10 mg 10 mg, oral, Every 8 hours PRN, anxiety, Starting on Mon11/25/24 at 1834, for anxiety 1999 (Given for Pain - Provider: Jessica Miles RN) 08 (Given - Provider: Joni Rivas RN) ondansetron ODT (ZOFRAN-ODT) disintegrating tablet 4 mg 4 mg, oral, Every 8 hours PRN, nausea, Starting on Mon11/25/24 at 1834, for nausea documented in this encounter Orders Medications Ordered That Mikel ht Not Have Been Administered Count Last Ordered Date First Ordered Date predniSONE (DELTASONE) tablet 40 mg 2 11/26 acetaminophen (TYLENOL) tablet 650 mg 1 02/2025 albuterol 2.5 mg /3 mL (0.08 3 %) nebulizer solution 2.5 mg 1 11/25/2024 cycloSPORINE (RESTASIS) 0.05 % ophthalmic emulsion 1 drop 1 11/25/2024 etomidate (AMIDATE) injection 20 mg 1 11/25 ketamine (KETALAR) injection 150 mg 1 11/25 ondansetron ODT (ZOFRAN-ODT) disintegrating tablet 4 mg 1 11/25/2024 succinylcholine (ANECTINE) i njection 100 mg 1 11/25/2024 Nursing Count Last Ordered Date First Orde red Date INSERT INDWELLING CATHETER 2 11/25/2024 Respiratory Care Count Last Ordered Date First Ordered Date HOME O2 EVAL (DESATURATION SCREEN) 1 2024 OXYGEN THERAPY, ADULT 2 11/25/2024 Admission Count Last Ordered Date First Orde red Date ADMIT TO INPATIENT 1 11/25/2024 Transfer Count Last Ordered Date First Orde red Date TRANSFER PATIENT TO NEW UNIT 1 11/25/2024 Discharge Count Last Ordered Date First Orde red Date DISCHARGE PATIENT 1 11/26/2024 documented in this encounter Additional Health Concerns Infection Onset Date Last Indicated Resolved Time Respiratory Rule-Out 11/25/2024 11/25/2024 025 5:45 PM EDT COVID-19 Rule-Out 11/25/2024 11/25/2024 11/25/2024 5:45 PM EDT documented as of this encounter Care Teams Financial Assistance Advisor Relationship Specialty Start Date End Date Will Monroe MD [address] [place] [id number] PCP - General Internal Medicine 07/08/24 documented as of this encounter
--- OUTSIDE RECORDS SUMMARY | 2024-11-28 13:02 | XMS_ITS | Encounter Summary ---
Author Organization [facility] Address [address] [place] [address] Care Team Providers Care Cardiothoracic Anesthesia Technician Name Role Phone Will Monroe MD Primary Care Provider [phone] Encounter Details Date Type Department Care Team (Late st Contact Info) Description 11/26/2024 Telephone Pulmonology - [place] [address] [facility] [address] [place] [phone] Annika Shultz MA Social History Tobacco Use Types Packs/Day Years [...] as of this encounter Progress Notes * Annika Shultz MA - 11/26/2024 9:01 AM EDT At provider request pt is rescheduled to Monday12/03/24 at 2:30 PM. Pt is aware of this new appt, and will call in if anything changes. * Annika Shultz MA - 11/26/2024 8:32 AM EDT Patient's Deangelo called in to inform our office that patient was admitted to [facility] on 11/25/24. Patient has 11 AM IP appt, and wondering if Provider can see patient in hospital instead of rescheduling. documented in this encounter Plan of Treatment Upcoming Encounters Date Type Department Care Team (Late st Contact Info) Description 12/03/2024 11:10 AM EDT Office Visit Pulmonolgy - [place] [address] [facility] [address] [place] [phone] Jelena Hoff NP [address] [facility] [address] [place] [address] 12/03/2024 2:30 PM EDT Office Visit Pulmonology - [place] [address] [facility] [address] [place] [phone] Laura Avalos MD [address] [place] [id number] 01/07/2025 1:15 PM EDT Office Visit Adult Medicine [facility] [address] [place] [phone] Will Monroe MD [address] [place] [phone] 03/11/2025 11:00 AM EDT Appointment [facility] Ultrasound [address] [place] [phone] 03/26/2025 11:00 AM EDT Office Visit Vascular Surgery - [place] [address] [place] [phone] Krupa Garcia MD [address] [facility] [address] [place] [address] documented as of this encounter Visit Diagnoses Not on filedocumented in this encounter Care Teams Cardiothoracic Anesthesia Technician Relationship Specialty Start Date End Date Will Monroe MD [address] [place] [phone] PCP - General Internal Medicine 07/08/24 documented as of this encounter
--- OUTSIDE RECORDS SUMMARY | 2024-11-28 13:02 | XMS_ITS | Clinical Summary ---
Author Organization 175 [facility] Address [address] [place] [address] Phone Care Team Providers Care Product Manager E Commerce Name Role Phone Will Monroe MD Primary Care Provider [phone] Allergies Active Allergy Reactions Criticality Noted Date Comments Aspirin 07/24/2017 Other Reaction(s): Rash/Dermatitis Azithromycin Nausea And Vomiting 07/24/2017 Latex 07/24/2017 Other Reaction(s): Hives/Urticaria Penicillins 07/24/2017 Other Reaction(s): Rash/Dermatitis Sulfa (Sulfonamide Antibiotics) 07/24/2017 Other Reaction(s): Hives/Urticaria Tetracycline Nausea And Vomiting 03/13/2018 Medications adalimumab (Humira,CF, Pen) 40 mg/0.4 mL pen Inject 40 mg into the skin every 14 days for 28 days. 021 Active albuterol 2.5 mg /3 mL (0.083 [...] Active ARIPiprazole (ABILIFY) 2 mg tablet Take 2.5 tablets (5 mg total) by mouth 1 (one) time each day. Active diazePAM (VALIUM) 10 mg tablet Take 1 Tablet by mouth every 8 hours as needed for Anxiety. 023 Active docusate sodium (COLACE) 100 mg capsule Take 1 Cap by mouth 2 times daily for 30 days. 018 Active mirtazapine (REMERON) 15 mg tablet Take 1.5 tablets (22.5 mg total) by mouth at bedtime. 024 Active cycloSPORINE (Restasis MultiDose) 0.05 % drops PLACE ONE DROP IN EACH EYE TWICE DAILY 024 Active diclofenac (VOLTAREN) 1 % topical gel Apply 4 g topically 4 times daily. 024 Active clopidogreL (PLAVIX) 75 mg tablet TAKE ONE TABLET DAILY 90 tablet 1 025 Active simvastatin (ZOCOR) 20 mg tablet Take 1 tablet (20 mg total) by mouth at bedtime. at bedtime. 90 tablet 1 025 Active Trintellix 5 mg tablet Take 1 tablet (5 mg total) by mouth 1 (one) time each day. 025 Active fluticasone propionate (FLONASE) 50 mcg/actuation nasal [...] diskus inhalerIndication s:Pulmonary emphysema, unspecified emphysema type (CMS/HCC V24, CMS/HCC V28) Inhale 1 puff by mouth 2 (two) times a day. Inhale 1 Puff into the lungs 2 times daily. 3 each 3 025 Active tiotropium (Spiriva with HandiHaler) 18 mcg per inhalation capsuleIndication s:Pulmonary emphysema, unspecified emphysema type ([facility] V24, [facility] V28) Place 1 capsule (18 mcg total) into inhaler and inhale 1 (one) time each day. 3 each 3 Active phenytoin (DILANTIN) 100 mg ER capsuleIndication s:Seizure disorder ([facility] V24, [facility] V28) Take 1 capsule (100 mg total) by mouth 2 (two) times a day. 270 capsule Active nicotine (NICODERM CQ) 14 mg/[address] 1 patch on the skin 1 (one) time each day. 30 each 025 2024 Active predniSONE (DELTASONE) 20 mg tablet Take 2 tablets (40 mg total) by mouth 1 (one) time each day for 5 doses. 10 each 025 2024 Active furosemide (LASIX) 20 mg tablet Take 1 tablet (20 mg total) by mouth 1 (one) time each day. 30 each 2024 Active levoFLOXacin (LEVAQUIN) 750 mg tablet Take 1 tablet (750 mg total) by mouth every other day for 4 days. 2 each 2024 Active cloNIDine (CATAPRES) 0.1 mg tablet TAKE ONE TABLET TWICE DAILY 180 tablet 1 Active carvediloL (COREG) 12.5 mg tablet TAKE ONE TABLET TWICE DAILY 180 tablet 1 Active ondansetron ODT (ZOFRAN-ODT) 4 mg disintegrating tablet DISSOLVE ONE TABLET IN MOUTH EVERY EIGHT HOURS NEEDED FOR NAUSEA 40 each 1 Active carvediloL (COREG) 12.5 mg tablet Take 1 Tablet by mouth 2 times daily. 2024 Discontinued cloNIDine (CATAPRES) 0.1 mg tablet Take 1 Tablet by mouth 2 times daily. 2024 Discontinued ondansetron ODT (ZOFRAN-ODT) 4 mg disintegrating tablet Take 1 Tablet by mouth every 8 hours as needed for Nausea. 024 2024 Discontinued phenytoin (DILANTIN) 100 mg ER capsuleIndication s:Seizure disorder ([facility] V24, [facility] V28) Take 1 capsule (100 mg total) by mouth 2 (two) times a day. 270 capsule 025 2024 Discontinued(R eorder) Active Problems Problem Noted Date Diagnosed Date Acute respiratory failure wi th hypoxia and hypercapnia ([facility] V24, [facility] V28) 11/25/2024 Pulmonary nodule 10/07/2024 Assessment & Plan (10/07/2024 [...] Hilar lymphadenopathy 10/07/2024 Osteopenia 09/16/2021 Psoriatic arthritis ([facility] V24, [facility] V28) 1 10/12/2020 Overview (06/12/2024): Humira started 03/2021 Psoriasis 07/08/2020 Positive Lyme disease serology 06/18/2020 Overview (06/12/2024): External labs 05/2020, apparently treated with clindamycin Retreated - June 2020 - no response Elevated rheumatoid factor 06/11/2020 Overview (06/12/2024): External lab rheumatoid factor 339 05/2020 GERD (gastroesophageal reflux disease) 9 Helicobacter positive gastritis 10/23/2018 CKD (chronic kidney disease) stage 3, GFR 30-59 ml/min ([facility] V24, [facility] V28) 03/13/2018 Hyperlipidemia 03/13/2018 Multilevel degenerative disc disease 03/13/2018 Renal calculi 03/13/2018 Overview (06/12/2024): Right, small and nonobstructing Irritable bowel syndrome 03/08/2018 Dermatochalasis of both upper eyelids 11/22/2017 Overview (06/12/2024): Severe bilateral senile ptosis, 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 Nuclear sclerosis of both eyes 11/22/2017 Anxiety 07/24/2017 Overview (06/12/2024): Followed by Angie Neely APRN [address], 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 Headache 07/24/2017 Overview (06/12/2024): Intractable chronic post-traumatic h/a. HTN (hypertension) 07/24/2017 Occlusion of left carotid artery 07/24/2017 Overview (06/12/2024): MRA 04/24/14, MRA neck 01/12/2016: Occlusion of L ICA. 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 On Dilantin Thrombocytopenia ([facility] V24) 07/24/2017 Vitamin D deficiency 07/24/2017 Encounters Date Type Department Care Team Description 11/26/2024 Telephone Pulmonology - [place] [address] [phone] Carrington AnnikaISAÍAS 11/25/2024 3:18 PM EDT - 11/26/2024 6:21 PM EDT Hospital Encounter [facility] Intermediate Care Unit [address] [place] [address] Sheldon Anthony MD Levrault, Richard, DO Jones, Christopher, MD Bell, Alistair A, MD Acute respiratory failure with hypoxia and hypercapnia ([facility] V24, [facility] V28) (Primary Dx); Acute pulmonary edema ([facility] V24, [facility] V28); COPD exacerbation ([facility] V24, [facility] V28); Hypertensive emergency; Stage 3 chronic kidney disease, unspecified whether stage 3a or 3b CKD ([facility] V24, [facility] V28); Chronic obstructive pulmonary disease with acute exacerbation ([facility] V24, [facility] V28) Discharge Disposition: Home or Self Care 11/20/2024 1:57 PM EDT Anesthesia Event [facility] OR [address] [place] [phone] Klever Mtz MD Bueno, Earl A, MD 11/20/2024 12:15 PM EDT - 11/20/2024 2:15 PM EDT Surgery [facility] OR [address] [place] [phone] Laura Avaols MD ROBOTIC ASSISTED BRONCHOSCOPY W. FNA, TBBX, BRUSH, BAL, FIDUCIAL PLACEMENT RUL AND LLL [[id number] (CPT??)] 11/20/2024 11:34 AM EDT - 11/20/2024 5:52 PM EDT Hospital Encounter [facility] OR [address] [place] [phone] Laura Avalos MD Pain; Lung nodule Discharge Disposition: Home or Self Care 10/31/2024 1:18 PM EDT - 10/31/2024 11:59 PM EDT Hospital Encounter [facility] CT Scan [address] [place] [phone] Incidental lung nodule, greater than or equal to 8mm Discharge Disposition: Home or Self Care 10/30/2024 Telephone Pulmonology - [place] 299 [facility] [address] [place] [phone] Desi Vargas [place] surgery (Hold Plavix) 10/25/2024 3:30 PM EST Consult Pulmonology - [place] [address] [phone] Laura Avalos MD Pulmonary nodule; SOB (shortness of breath) 10/11/2024 10:57 AM EST - 10/11/2024 11:59 PM EST Hospital Encounter [facility] MRI [address] [place] [phone] Pulmonary nodule; Hilar lymphadenopathy Discharge Disposition: Home or Self Care 10/07/2024 2:30 PM EST Consult Thoracic Surgery - [place] 299 [facility] [address] [place] [phone] Tunde Trejo MD Incidental lung nodule, greater than or equal to 8mm (Primary Dx); Pulmonary nodule; Hilar lymphadenopathy; Chronic obstructive pulmonary disease, unspecified COPD type ([facility] V24, [facility] V28) 10/04/20[facility] [address] [phone] Jelena Hoff NP DURABLE MEDICAL EQUIPMENT 10/04/2024 Telephone Adult [address] [phone] Tawana Ambrocio LPN Fitting for DME (Faxed form from [employer]) 09/24/2024 11:30 AM EST [facility] [address] [place] [address] Jelena Hoff NP Seizure disorder (CMS/[facility] V24, [facility] V28) (Primary Dx); Incidental lung nodule, greater than or equal to 8mm; Pulmonary emphysema, unspecified emphysema type ([facility] V24, [facility] V28); Former heavy cigarette smoker (20-39 per day); Exercise hypoxemia; Non-seasonal allergic rhinitis due to other allergic trigger 09/24/2024 [facility] [address] [place] [phone] Jelena Hoff NP 09/18/2024 12:37 PM EST - 09/18/2024 11:59 PM EST Hospital Encounter [facility] PET Scan [address] [place] [phone] Incidental lung nodule, greater than or equal to 8mm Discharge Disposition: Home or Self Care 09/11/2024 Billing Patient Not Present [address] [phone] Will Monroe MD Obstructive chronic bronchitis with exacerbation ([facility] V24, [facility] V28) (Primary Dx); Dependence on supplemental oxygen; Atherosclerosis of [place] coronary artery without angina pectoris, unspecified whether [place] or transplanted heart; Essential (primary) hypertension; Intercostal pain; Other symptoms and signs involving cognitive functions and awareness; Solitary pulmonary nodule 09/04/20[facility] [address] [phone] Jelena Hoff NP 09/03/2024 10:50 AM EST - 09/03/2024 11:59 PM EST Hospital Encounter CT Scan - [address] [phone] Pulmonary emphysema, unspecified emphysema type ([facility] V24, [facility] V28); Former heavy cigarette smoker (20-39 per day); Incidental lung nodule, greater than or equal to 8mm Discharge Disposition: Home or Self Care from Last 3 Months Immunizations Name Administration Dates Next Due Influenza Quadravalent, MDCK , 0.5ml, preservative free (Flucelvax) 6mo and older 07/24/2018 Influenza trivalent, 0.5mL ( Fluad) 65yo and older 06/08/2023,05/17/2022,06/15/2021,05/23,07/23/2019 Influenza trivalent, with pr eservative (Fluzone; Afluria) 6mo and older 05/23/2020 Influenza, Unspecified 06/04/2021 Odnoklassniki SARS-CoV-2 COVID-19, mRNA, LNP-S, preservative free 12/25/2020 [...] TONSILLECTOMY OTHER SURGICAL HISTORY 09/2016 Left PROCEDURE: PA OPTX ILIAC TUBRST AVLS/WING FX FIXJ IF PRFRMD; COMMENT: s/p pelvic repair, [facility] UPPER GASTROINTESTINAL ENDOSCOPY 10/03/2018 PROCEDURE: UPPER GI ENDOSCOPY/EXAM; COMMENT: mild edema UPPER GASTROINTESTINAL ENDOSCOPY 02/13/2019 PROCEDURE: UPPER GI ENDOSCOPY/EXAM; COMMENT: non specific edema, biopsy pending DENTAL SURGERY wears partial bridge per pt BLEPHAROPLASTY Medical History Medical History Date Comments Anxiety [...] stage 3, GFR 30-59 ml/min ([facility] V24, [facility] V28) 03/13/2018 DX:CKD (chronic kidney disea se) stage 3, GFR 30-59 ml/min ([facility]) COPD (chronic obstructive pu lmonary disease) ([facility] V24, [facility] V28) 07/24/2017 DX:COPD (chronic o bstructive pulmonary disease) (HCC); COMMENT: Chronic bronchitis Depression 07/24/2017 DX:Depression Dermatochalasis [...] COMMENT: Right, small and nonobstructing Seizure disorder ([facility]/HCC V2 4, CMS/[facility] V28) 07/24/2017 DX:Seizure disorder ([facility]); C OMMENT: 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 On Dilantin Thrombocytopenia ([facility] V24) 07/24/2017 D X:Thrombocytopenia ([facility]) Vitamin D deficiency 07/24/2017 DX:Vitamin D deficiency GERD (gastroesophageal reflux disease) 04/10/2019 DX:GERD (gastroesophageal reflux disease) Psoriasis 07/08/2020 DX:Psoriasis Lung nodule Oxygen dependent 2 lpm when acti ve Family History Medical History Relation Name Comments [...] Date Smoking Tobacco: Former Smokeless Tobacco: Current Tobacco Cessation:Ready to Q uit: Not Asked; Counseling Given: Not Answered Alcohol Use Standard Drinks/Week [...] Orientation Straight 10/18/2024 2: 01 PM EST Obstetrics History Last Filed Vital Signs Vital [...] Mass Index 29.35 11/26/2024 11:26 AM EDT Plan of Treatment Upcoming Encounters Date Type Department Care Team (Late st Contact Info) Description 12/03/2024 11:10 AM EDT Office Visit Pulmonolgy - [place] 175 [facility] [address] [place] [phone] Jelena Hoff NP 175 [facility] [address] [place] [address] 12/03/2024 2:30 PM EDT Office Visit Pulmonology - [place] 299 [facility] [address] [place] [phone] Laura Avalos MD [address] [place] [phone] 01/07/2025 1:15 PM EDT Office Visit Adult Medicine [address] [phone] Will Monroe MD [address] [place] [address] 03/11/2025 11:00 AM EDT Appointment [facility] Ultrasound [address] [place] [phone] 03/26/2025 11:00 AM EDT Office Visit Vascular Surgery - [place] [address] [place] [phone] Krupa Garcia MD [address] [place] [address] Health Maintenance Due Date Last Done Comments Zoster Vaccines (1 of 2) 1969 Colorectal Cancer Screening: Stool Based Tests (FOBT/FIT) 07/30/2022 Depression Screening 07/30/2022 Medicare Annual Wellness Visit 07/30/2022 Social Influencers of Health Screening 07/30/2022 RSV Immunization Adult Patients (1 - 1-dose 75+ series) 2023 COVID-19 Vaccine ( season) 2024 09/08/2021, 12/25/2020, 12/04/2020 Falls Risk Assessment 11/26/2025 11/26/2024 Hypertension/CHF/CAD Annual BMP Blood Test 11/26/2025 11/26/2024, 11/26/2024, 11/25/2024, Additional history exists DTaP,Tdap,and Td Vaccines (2 - Td or [...] age to complete this topic Meningococcal B Vaccine Aged Out No l onger eligible based on patient's age to complete this topic RSV Immunization Patients Under 20 months Aged Out No longer eligible based on patient's age to complete this topic Varicella Vaccines Aged Out No longer eligible based on patient's age to complete this topic Medical Devices Implanted Type Area Composite Technician Device Identifier Shelf Expiration Date Model / Serial / Lot Marker Cobra Superlock - Sn/A - [id number] Implanted:Qt y: 1 on 11/20/2024 by Laura Avalos MD at [facility] Implants Right: Lung [employer] [id number] 06/26/2028 [id number] / N/A / [id number] Description:RIGHT UPPER LOBE Marker Cobra Superlock - Sn/A - [id number] Implanted:Qt y: 1 on 11/20/2024 by Laura Avalos MD at [facility] Implants Left: Lung [employer] 08/07/2028 [id number] / N/A / [id number] Description:LEFT LOWER LOBE Procedures Procedure Name Priority Date/Time Associated Diagnosis Comments ECG ANNOTATED 11/27/2024 HOME O2 EVAL (DESATURATION SCREEN) Routine 11/26/2024 2:00 PM EDT BASIC METABOLIC PANEL Routine 11/26/2024 12:44 PM EDT TRANSTHORACIC ECHOCARDIOGRAM (TTE) COMPLETE Routine 11/26/2024 11:26 AM EDT Hypertensive emergency XR CHEST 1 VIEW STAT 11/26/2024 5:12 AM EDT LT BLUE - NA CITRATE Routine 11/26/2024 3:54 AM EDT EXTRA TUBES Routine 11/26/2024 3:54 AM EDT TROPONIN I HIGH SENSITIVITY Routine 11/26/2024 3:54 AM EDT CBC WITH AUTO DIFFERENTIAL Routine 11/26/2024 3:54 AM EDT VENOUS BLOOD GAS Routine 11/26/2024 3:54 AM EDT CBC AND DIFFERENTIAL Routine 11/26/2024 3:54 AM EDT PROCALCITONIN Routine 11/26/2024 3:54 AM EDT PHOSPHORUS Routine 11/26/2024 3:54 AM EDT MAGNESIUM Routine 11/26/2024 3:54 AM EDT CALCIUM, IONIZED [...] CULTURE BLOOD STAT 11/25/2024 5:15 PM EDT VENOUS BLOOD GAS STAT 11/25/2024 4:37 PM EDT LACTATE STAT 11/25/2024 4:37 PM EDT TROPONIN I HIGH SENSITIVITY STAT 11/25/2024 4:37 PM EDT CULTURE BLOOD STAT 11/25/2024 4:37 PM EDT URINALYSIS WITH REFLEX MICROSCOPIC STAT 11/25/2024 4:06 PM EDT URINALYSIS WITH REFLEX MICROSCOPIC STAT 11/25/2024 4:06 PM EDT RESPIRATORY VIRUS PANEL MOLECULAR STUDY STAT 11/25/2024 4:05 PM EDT ECG 12-LEAD STAT 11/25/2024 3:49 PM EDT PROCALCITONIN Add-On 11/25/2024 3:41 PM EDT THYROID STIMULATING HORMONE Add-On 11/25/2024 3:41 PM EDT PHOSPHORUS Add-On 11/25/2024 3:41 PM EDT MAGNESIUM Add-On 11/25/2024 3:41 PM EDT CBC WITH AUTO DIFFERENTIAL STAT 11/25/2024 3:41 PM EDT HEPATIC FUNCTION PANEL STAT 11/25/2024 3:41 PM EDT BASIC METABOLIC PANEL STAT 11/25/2024 3:41 PM EDT CBC AND DIFFERENTIAL STAT 11/25/2024 3:41 PM EDT TROPONIN I HIGH SENSITIVITY STAT 11/25/2024 3:41 PM EDT B-TYPE NATRIURETIC PEPTIDE STAT 11/25/2024 3:41 PM EDT VENOUS BLOOD GAS STAT 11/25/2024 3:41 PM EDT XR CHEST 1 VIEW STAT 11/25/2024 3:30 PM EDT PA CRITICAL CARE 30-74 MINUTES Routine 11/25/2024 3:16 PM EDT XR CHEST 1 VIEW STAT 11/20/2024 4:39 PM EDT OXYGEN THERAPY, ADULT Routine 11/20/2024 4:13 PM EDT OXYGEN THERAPY, ADULT Routine 11/20/2024 4:13 PM EDT XR FLUORO UP TO 1 HOUR (STATISTICS)(NO REPORT) Routine 11/20/2024 3:48 PM EDT Pain TH AN ENDOTRACHEAL(NO CHARGE) Routine 11/20/2024 2:12 PM EDT TISSUE EXAM Routine 11/20/2024 2:11 PM EDT Lung nodule NON-GYNECOLOGIC CYTOLOGY Routine 11/20/2024 2:09 PM EDT Lung nodule PA BRONCHOSCOPY RIGID/FLEXIBLE W/EBUS >=3 MEDIASTINAL/HILAR LYMPH NODES 11/20/2024 1:42 PM EDT Lung nodule PA BRONCHOSCOPY RIGID/FLEXIBLE W/TRANSBRONCHIAL LUNG BIOPSY(S) SINGLE LOBE 11/20/2024 1:42 PM EDT Lung nodule PA BRONCHOSCOPY RIGID/FLEXIBLE COMPUTER ASSISTED IMAGE GUIDED NAVIGATION 11/20/2024 1:42 PM EDT Lung nodule ECG 12-LEAD Routine 11/13/2024 11:48 AM EDT Pulmonary nodule CBC WITH AUTO DIFFERENTIAL Routine 11/13/2024 11:40 AM EDT Pulmonary nodule CBC AND DIFFERENTIAL Routine 11/13/2024 11:40 AM EDT Pulmonary nodule BASIC METABOLIC PANEL Routine 11/13/2024 11:40 AM EDT Pulmonary nodule PROTHROMBIN TIME WITH INR Routine 11/13/2024 11:40 AM EDT Pulmonary nodule SOB (shortness of breath) EXTERNAL CLINICAL LAB 11/12/2024 CT CHEST W CONTRAST Routine 10/31/2024 1 :49 PM EDT Incidental lung nodule, greater than or equal to 8mm MR BRAIN WO AND W CONTRAST Routine [...] AM EST Pulmonary emphysema, unspecified emphysema type (CMS/HCC V24, CMS/HCC V28) Former heavy cigarette smoker (20-39 per day) Incidental lung nodule, greater than or equal to 8mm LIPID PANEL Routine 06/08/2023 DXA BONE DENSITY STUDY 1+ SITS AXIAL SKEL Routine 09/16/2021 11:06 AM EST Encounter for screening for osteoporosis HEPATITIS C SCREENING Routine 05/13/2020 from Last 3 Months or Most Recently Relevant to Health Maintenance Results * ECG-Annotated (11/27/2024) us Provider Onbase MD ECG ORDERABLES Final Result * (ABNORMAL) Basic metabolic panel (11/26/2024 12:44 PM EDT) Only the most recent of6 resultswithin the time period is included. Sodium 137 133 - 145 mmol/L LAB CHEMISTRY METHOD 11/26/2024 1:37 PM [facility] Potassium 4.3 3.5 - 5.5 mmol/L LAB CHEMISTRY METHOD 11/26/2024 1:37 PM [facility] Chloride 100 96 - 110 mmol/L LAB CHEMISTRY METHOD 11/26/2024 1:37 PM [facility] CO2 32 21 - 32 mmol/L LAB CHEMISTRY METHOD 11/26/2024 1:37 PM [facility] Anion Gap 5 3 - 11 LAB CHEMISTRY METHOD 11/26/2024 1:37 PM [facility] Glucose 141(H) 70 - 100 mg/dL LAB CHEMISTRY METHOD 11/26/2024 1:37 PM [facility] BUN 28(H) 5 - 25 mg/dL LAB CHEMISTRY METHOD 11/26/2024 1:37 PM [facility] Creatinine 1.31(H) 0.50 - 1.10 mg/dL LAB CHEMISTRY METHOD 11/26/2024 1:37 PM [facility] eGFR 42(L) >=60 mL/min/1. 73m2 LAB CHEMISTRY METHOD 11/26/2024 1:37 PM [facility] Comment:Calculation based on the??Chronic Kidney Disease Epidemiology Collaboration (CKD-EPI) equation refit??without adjustment for race. BUN/Creatinine Ratio 21.4 LAB CHEMISTRY METHOD 11/26/2024 1:37 PM [facility] Calcium 9.4 8.5 - 10.5 mg/dL LAB CHEMISTRY METHOD 11/26/2024 1:37 PM [facility] Blood Venous blood specimen / Unknown Venipuncture / Unknown 11/26/2024 12:44 PM EDT 11/26/2024 12:59 PM EDT Baljeet Franco MD LAB BLOOD ORDERABLES Final Re sult [facility] [address] [place] [address], * (ABNORMAL) TRANSTHORACIC ECHOCARDIOGRAM (TTE) COMPLETE (11/26/2024 11:26 AM EDT) Left Atrium Minor [place] 5.2 cm CV PACS Left Atrium Major [place] 5.2 cm CV PACS LA Area Sys [...] Volume 51 mL CV PACS MV Deceleration Pierce 3.1 m/s2 CV PACS E Wave Deceleration [...] Chest 1 View (11/26/2024 5:12 AM EDT) Only the most recent of3 resultswithin the time period is included. Anatomical Region Laterality Modality Body Radiographic Mireya [...] Signed Date: 11/26/2024 08:20 ET Workstation ID: [id number] Transcribed By: Self Edit Transcribed Date: 11/26/2024 [...] Signed Date: 11/26/2024 08:20 ET Workstation ID: [id number] Transcribed By: Self Edit Transcribed Date: 11/26/2024 08:15 ET us Dl Sanchez DO IMG XR PROCEDURES Final Resu lt * (ABNORMAL) Troponin I high sensitivity (11/26/2024 3:54 AM EDT) Only the most recent of4 resultswithin the time period is included. [facility] High Sensitivity Troponin I 933(HH) <=54 ng/L LAB CHEMISTRY METHOD 11/26/2024 4:48 AM EDT [facility] Blood Venous blood specimen / Unknown Venipuncture / Unknown 11/26/2024 3:54 AM EDT 11/26/2024 4:09 AM EDT [facility] LAB - 11/26/2024 4:48 AM EDT High levels of biotin in samples may falsely decrease hsTroponin values. ??Use caution when interpreting hsTroponin results in patients taking biotin who exhibit renal impairment (eGFR <60) or in patients taking more than 20 mg/day of biotin. us Rosie DOWNING LAB BLOOD ORDERABLES Final R esult [facility] [address] [place] [address], * (ABNORMAL) Procalcitonin (11/26/2024 3:54 AM EDT) Only the most recent of2 resultswithin the time period is included. [facility] Procalcitonin 0.28(H) <=0.16 ng/mL LAB CHEMISTRY METHOD 11/26/2024 8:55 AM EDT [facility] Blood Venous blood specimen / Unknown Venipuncture / Unknown 11/26/2024 3:54 AM EDT 11/26/2024 4:09 AM EDT [facility] - 11/26/2024 8:55 AM EDT Procalcitonin [...] if any concentrations <2.0 ng/mL are obtained. us Dl Sanchez DO LAB BLOOD ORDERABLES Final R esult [facility] [address] [place] [address], * (ABNORMAL) CBC auto differential (11/26/2024 3:54 AM EDT) Only the most recent of3 resultswithin the time period is included. WBC 7.3 4.8 - 10.8 K/mcL LAB HEMETOLOGY METHOD 11/26/2024 4:46 AM EDT [facility] RBC 4.10 3.80 - 4.80 M/mcL LAB HEMETOLOGY METHOD 11/26/2024 4:46 AM EDT [facility] Hemoglobin 13.1 11.5 - 16.0 g/dL LAB HEMETOLOGY METHOD 11/26/2024 4:46 AM EDT [facility] Hematocrit 40.0 35.0 - 47.0 % LAB HEMETOLOGY METHOD 11/26/2024 4:46 AM EDT [facility] MCV 97.8 79.0 - 98.0 FL LAB HEMETOLOGY METHOD 11/26/2024 4:46 AM [facility] MCH 32.0 27.0 - 32.0 pcg LAB HEMETOLOGY METHOD 11/26/2024 4:46 AM [facility] MCHC 32.8 32.0 - 37.0 g/dL LAB HEMETOLOGY METHOD 11/26/2024 4:46 AM [facility] RDW 11.9 11.0 - 15.0 % LAB HEMETOLOGY METHOD 11/26/2024 4:46 AM [facility] Platelets 137 130 - 400 K/mcL LAB HEMETOLOGY METHOD 11/26/2024 4:46 AM [facility] MPV 10.4 7.0 - 11.0 FL LAB HEMETOLOGY METHOD 11/26/2024 4:46 AM [facility] NRBC 0.0 <1.0 % LAB HEMETOLOGY METHOD 11/26/2024 4:46 AM [facility] NRBC Absolute 0.00 <0.10 K/mcL LAB HEMETOLOGY METHOD 11/26/2024 4:46 AM [facility] Neutrophils Relative 88.1 % LAB HEMETOLOGY METHOD 11/26/2024 4:46 AM [facility] Lymphocytes Relative 8.2 % LAB HEMETOLOGY METHOD 11/26/2024 4:46 AM [facility] Monocytes Relative 3.3 % LAB HEMETOLOGY METHOD 11/26/2024 4:46 AM [facility] Eosinophils Relative 0.0 % LAB HEMETOLOGY METHOD 11/26/2024 4:46 AM [facility] Basophils Relative 0.0 % LAB HEMETOLOGY METHOD 11/26/2024 4:46 AM [facility] Immature Granulocytes Relative 0.4 % LAB HEMETOLOGY METHOD 11/26/2024 4:46 AM [facility] Neutrophils Absolute 6.44 1.50 - 7.00 K/[facility] LAB HEMETOLOGY METHOD 11/26/2024 4:46 AM EDT [facility] Lymphocytes Absolute 0.60(L) 1.00 - 5.00 K/[facility] LAB HEMETOLOGY METHOD 11/26/2024 4:46 AM EDT [facility] Monocytes Absolute 0.24 0.20 - 1.00 K/[facility] LAB HEMETOLOGY METHOD 11/26/2024 4:46 AM EDT [facility] Eosinophils Absolute 0.00 0.00 - 0.50 K/[facility] LAB HEMETOLOGY METHOD 11/26/2024 4:46 AM EDT [facility] Basophils Absolute 0.00 0.00 - 0.20 K/mcL LAB HEMETOLOGY METHOD 11/26/2024 4:46 AM EDT [facility] Immature Granulocytes Absolute 0.03 0.00 - 0.03 K/[facility] LAB HEMETOLOGY METHOD 11/26/2024 4:46 AM EDT [facility] Blood Venous blood specimen / Unknown Venipuncture / Unknown 11/26/2024 3:54 AM EDT 11/26/2024 4:09 AM EDT Dl Sanchez DO LAB BLOOD ORDERABLES Final R esult [facility] [address] [place] [address], * Light blue tube (11/26/2024 3:54 AM EDT) Extra Tube Hold for add-ons. 11/26/2024 6:01 AM EDT [facility] Comment:Auto resulted. Blood Venous blood specimen / Unknown Venipuncture / Unknown 11/26/2024 3:54 AM EDT 11/26/2024 4:10 AM EDT Ko Motta MD LAB BLOOD ORDERABLES Final Result Performing Organization Address City/[facility]/ZIP Co de Phone Number [facility] [address] [place] [address], [place] [phone] * Phosphorus (11/26/2024 3:54 AM EDT) Only the most recent of3 resultswithin the time period is included. Phosphorus 2.6 2.5 - 4.5 mg/dL LAB CHEMISTRY METHOD 11/26/2024 4:34 AM EDT [facility] Blood Venous blood specimen / Unknown Venipuncture / Unknown 11/26/2024 3:54 AM EDT 11/26/2024 4:09 AM EDT Dl Sanchez DO LAB BLOOD ORDERABLES Final R esult Performing Organization Address [facility] Co de Phone Number [facility] [address] [place] [address], [place] [phone] * Magnesium (11/26/2024 3:54 AM EDT) Only the most recent of3 resultswithin the time period is included. Magnesium 2.0 1.9 - 2.6 mg/dL LAB CHEMISTRY METHOD 11/26/2024 4:34 AM EDT [facility] Blood Venous blood specimen / Unknown Venipuncture / Unknown 11/26/2024 3:54 AM EDT 11/26/2024 4:09 AM EDT Dl Sanchez DO LAB BLOOD ORDERABLES Final R esult Performing Organization Address City/[facility]/ZIP Co de Phone Number [facility] [address] [place] [address], [place] [phone] * (ABNORMAL) Venous blood gas (11/26/2024 3:54 AM EDT) Only the most recent of3 resultswithin the time period is included. pH, Cameron 7.35 7.32 - 7.42 pH 11/26/2024 4:14 AM EDT [facility] pCO2, Cameron 55(H) 41 - 51 mmHg 11/26/2024 4:14 AM EDT [facility] pO2, Cameron 53(H) 25 - 40 mmHg 11/26/2024 4:14 AM EDT [facility] HCO3, Venous 27.3(H) 22.0 - 26.0 mmol/L 11/26/2024 4:14 AM EDT [facility] O2 Sat, Cameron 90.1 % 11/26/2024 4:14 AM EDT [facility] Base Excess, Cameron 3.4(H) -2.0 - 2.0 mmol/L 11/26/2024 4:14 AM EDT [facility] Blood Venous blood specimen / Unknown Venipuncture / Unknown 11/26/2024 3:54 AM EDT 11/26/2024 4:09 AM EDT Dl Sanchez DO LAB BLOOD ORDERABLES Final R esult [facility] [address] [place] [address], * Calcium, ionized (11/26/2024 3:54 AM EDT) Only the most recent of2 resultswithin the time period is included. Calcium Ionized 4.98 4.50 - 5.30 mg/dL 11/26/2024 4:15 AM EDT [facility] Blood Venous blood specimen / Unknown Venipuncture / Unknown 11/26/2024 3:54 AM EDT 11/26/2024 4:09 AM EDT Dl Sanchez DO LAB BLOOD ORDERABLES Final R esult [facility] [address] [place] [address], [place] [phone] * (ABNORMAL) Arterial blood gas (11/25/2024 6:49 PM EDT) pH, Arterial 7.35 7.35 - 7.45 pH 11/25/2024 6:59 PM EDT [facility] pCO2, Arterial 49(H) 35 - 45 mmHg 11/25/2024 6:59 PM EDT [facility] pO2, Arterial 56(LL) 80 - 100 mmHg 11/25/2024 6:59 PM EDT [facility] HCO3, Arterial 25.2 22.0 - 26.0 mmol/L 11/25/2024 6:59 PM EDT [facility] O2 Sat, Arterial 91.9(L) 95.0 - 98.0 % 11/25/2024 6:59 PM EDT [facility] Base Excess, Arterial 0.7 -2.0 - 2.0 mmol/L 11/25/2024 6:59 PM EDT [facility] Blood Arterial blood specimen / Unknown Arterial Puncture / Unknown 11/25/2024 6:49 PM EDT 11/25/2024 6:54 PM EDT Dl Rikylane LAB BLOOD ORDERABLES Final R esult [facility] [address] [place] [address], [place] [phone] * ECG 12 lead (11/25/2024 6:40 PM EDT) Only the most recent of3 resultswithin the time period is included. Ventricular Rate ECG 83 BPM GEMUSE Atrial Rate 83 BPM GEMUSE P-R Interval 152 ms GEMUSE QRS Duration 70 ms GEMUSE Q-T Interval 358 ms GEMUSE QTc 420 ms GEMUSE P Wave [place] 26 degrees GEMUSE R Mass[place] 12 degrees GEMUSE T [place] 64 degrees GEMUSE ECG Interpretation Normal sinus rhythm Septal infarct (cited on or before 13-NOV-2024) Abnormal ECG When compared with ECG of 25-NOV-2024 15:49, No significant change was found Confirmed by Mauro PLASENCIA YUFENG ([id number]) on 11/26/2024 8:17:19 PM GEMUSE 11/25/2024 6:40 PM EDT 11/26/2024 8:17 PM EDT Sheldon Anthony MD ECG ORDERABLES Final Result Performing Organization Address [facility] Co de Phone Number GEMUSE * Lactate (11/25/2024 4:37 PM EDT) [facility] Lactate 1.6 0.4 - 2.0 mmol/L LAB CHEMISTRY METHOD 11/25/2024 5:30 PM EDT [facility] Blood Venous blood specimen / Unknown Venipuncture / Unknown 11/25/2024 4:37 PM EDT 11/25/2024 4:53 PM EDT Sheldon Anthony MD LAB BLOOD ORDERABLES Final Resu lt Performing Organization Address [facility]/ZIP Co de Phone Number [facility] [address] [place] [address], [place] [phone] * (ABNORMAL) Urinalysis with reflex microscopic (11/25/2024 4:06 PM EDT) [facility] Specific [place] Urine 1.017 1.003 - 1.030 LAB URINALYSIS - AUTOMATED METHOD 11/25/2024 5:21 PM EDT [facility] pH, Urine 6.5 5.0 - 8.0 pH LAB URINALYSIS - AUTOMATED METHOD 11/25/2024 5:21 PM EDT [facility] Leukocytes, Urine Negative Negative LAB URINALYSIS - AUTOMATED METHOD 11/25/2024 5:21 PM [facility] Nitrite, Urine Negative Negative LAB URINALYSIS - AUTOMATED METHOD 11/25/2024 5:21 PM [facility] Protein, Urine 300(A) <=Trace mg/dL LAB URINALYSIS - AUTOMATED METHOD 11/25/2024 5:21 PM [facility] Glucose, Urine Negative Negative mg/dL LAB URINALYSIS - AUTOMATED METHOD 11/25/2024 5:21 PM [facility] Ketones, Urine Negative Negative mg/dL LAB URINALYSIS - AUTOMATED METHOD 11/25/2024 5:21 PM [facility] Urobilinogen , Urine 0.2 0.2 - 1.0 mg/dL LAB URINALYSIS - AUTOMATED METHOD 11/25/2024 5:21 PM [facility] Bilirubin, Urine Negative Negative LAB URINALYSIS - AUTOMATED METHOD 11/25/2024 5:21 PM [facility] Blood, Urine Moderate(A) Negative LAB URINALYSIS - AUTOMATED METHOD 11/25/2024 5:21 PM [facility] RBC, Urine 28.5(H) 0 - 4 /HPF LAB URINALYSIS - AUTOMATED METHOD 11/25/2024 5:21 PM [facility] WBC, Urine 6.2(H) 0 - 4 /HPF LAB URINALYSIS - AUTOMATED METHOD 11/25/2024 5:21 PM [facility] Squamous Epithelial, Urine >100(H) 0 - 60 /LPF LAB URINALYSIS - AUTOMATED METHOD 11/25/2024 5:21 PM [facility] Non-Squamous Epithelial, Urine Rare Transitional epithelial cells. /LPF 11/25/2024 5:21 PM [facility] Bacteria, Urine Negative Negative /HPF LAB URINALYSIS - AUTOMATED METHOD 11/25/2024 5:21 PM EDT [facility] Hyaline Casts, Urine 2.4 0 - 3 /LPF LAB URINALYSIS - AUTOMATED METHOD 11/25/2024 5:21 PM EDT [facility] Other Casts, Urine 2-5 Fine Granular casts. /LPF 11/25/2024 5:21 PM EDT [facility] Urine Urine specimen obtained by clean catch procedure / Unknown Non-blood Collection / Unknown 11/25/2024 4:06 PM EDT 11/25/2024 4:42 PM EDT Sheldon Gaston Anthony MD LAB URINE ORDERABLES Final Resu lt [facility] [address] [place] [address], [place] [phone] * Respiratory virus panel molecular study (11/25/2024 4:05 PM EDT) Adenovirus Detection by PCR Not Detected Not Detected LAB MICROBIOLOGY METHOD 11/25/2024 5:45 PM EDT [facility] Influenza A PCR Not Detected Not Detected LAB MICROBIOLOGY METHOD 11/25/2024 5:45 PM EDT [facility] Influenza B PCR Not Detected Not Detected LAB MICROBIOLOGY METHOD 11/25/2024 5:45 PM EDT [facility] Coronavirus 229E Not Detected Not Detected LAB MICROBIOLOGY METHOD 11/25/2024 5:45 PM EDT [facility] Coronavirus HKU1 Not Detected Not Detected LAB MICROBIOLOGY METHOD 11/25/2024 5:45 PM EDT [facility] Coronavirus OC43 Not Detected Not Detected LAB MICROBIOLOGY METHOD 11/25/2024 5:45 PM EDT [facility] Coronavirus NL63 Not Detected Not Detected LAB MICROBIOLOGY METHOD 11/25/2024 5:45 PM EDT [facility] Parainfluenza Virus 1 Not Detected Not Detected LAB MICROBIOLOGY METHOD 11/25/2024 5:45 PM EDT [facility] Parainfluenza Virus 2 Not Detected Not Detected LAB MICROBIOLOGY METHOD 11/25/2024 5:45 PM EDT [facility] Parainfluenza Virus 3 Not Detected Not Detected LAB MICROBIOLOGY METHOD 11/25/2024 5:45 PM EDT [facility] Parainfluenza Virus 4 Not Detected Not Detected LAB MICROBIOLOGY METHOD 11/25/2024 5:45 PM EDT [facility] RSV PCR Not Detected Not Detected LAB MICROBIOLOGY METHOD 11/25/2024 5:45 PM EDT [facility] Human Metapneumovirus A and B Not Detected Not Detected LAB MICROBIOLOGY METHOD 11/25/2024 5:45 PM EDT [facility] Rhinovirus/Entero virus Not Detected Not Detected LAB MICROBIOLOGY METHOD 11/25/2024 5:45 PM EDT [facility] Bordetella pertussis Not Detected Not Detected LAB MICROBIOLOGY METHOD 11/25/2024 5:45 PM EDT [facility] Bordetella parapertussis Not Detected Not Detected LAB MICROBIOLOGY METHOD 11/25/2024 5:45 PM EDT [facility] Mycoplasma pneumo by PCR Not Detected Not Detected LAB MICROBIOLOGY METHOD 11/25/2024 5:45 PM EDT [facility] Chlamydia pneumoniae Not Detected Not Detected LAB MICROBIOLOGY METHOD 11/25/2024 5:45 PM EDT [facility] SARS COV-2 Not Detected Not Detected LAB MICROBIOLOGY METHOD 11/25/2024 5:45 PM EDT [facility] Swab Both anterior nares / Unknown Non-blood Collection / Unknown 11/25/2024 4:05 PM EDT 11/25/2024 4:42 PM EDT [facility] - 11/25/2024 5:45 PM EDT Testing was performed using the [employer] Respiratory Pathogen PCR Assay. All results must [...] that are below the limit of detection. Sheldon Anthony MD LAB MICROBIOLOGY - [facility] Final Result Performing Organization Address [facility] de Phone Number [facility] [address] [place] [phone], * Thyroid stimulating hormone (11/25/2024 3:41 PM EDT) [facility] TSH 0.48 0.40 - 4.00 mcIU/mL LAB CHEMISTRY METHOD 11/25/2024 6:19 PM EDT [facility] Blood Venous blood specimen / Unknown Venipuncture / Unknown 11/25/2024 3:41 PM EDT 11/25/2024 3:47 PM EDT Dl Sanchez DO LAB BLOOD ORDERABLES Final R esult Performing Organization Address [facility] de Phone Number [facility] [address] [place] [phone], * (ABNORMAL) B-type natriuretic peptide (11/25/2024 3:41 PM EDT) [facility] BNP 109(H) <=100 pcg/mL LAB CHEMISTRY METHOD 11/25/2024 4:32 PM EDT [facility] Blood Venous blood specimen / Unknown Venipuncture / Unknown 11/25/2024 3:41 PM EDT 11/25/2024 3:47 PM EDT Sheldon Anthony MD LAB BLOOD ORDERABLES Final Resu lt Performing Organization Address [facility] de Phone Number [facility] [address] [place] [address], [place] [phone] * (ABNORMAL) Hepatic function panel (11/25/2024 3:41 PM EDT) Total Protein 7.6 6.0 - 8.0 g/dL LAB CHEMISTRY METHOD 11/25/2024 4:32 PM EDT [facility] Albumin 3.6 3.2 - 5.0 g/dL LAB CHEMISTRY METHOD 11/25/2024 4:32 PM EDT [facility] Total Bilirubin 0.3 0.0 - 1.4 mg/dL LAB CHEMISTRY METHOD 11/25/2024 4:32 PM T [facility] Bilirubin, Direct 0.1 0.0 - 0.3 mg/dL LAB CHEMISTRY METHOD 11/25/2024 4:32 PM T [facility] Bilirubin, Indirect 0.2 0.0 - 1.1 mg/dL LAB CHEMISTRY METHOD 11/25/2024 4:32 PM EDT [facility] ALT (SGPT) 39 10 - 60 unit/L LAB CHEMISTRY METHOD 11/25/2024 4:32 PM T [facility] AST (SGOT) 60(H) 10 - 42 unit/L LAB CHEMISTRY METHOD 11/25/2024 4:32 PM EDT [facility] Comment:Hemolysis present Alkaline Phosphatase 174(H) 42 - 121 unit/L LAB CHEMISTRY METHOD 11/25/2024 4:32 PM T [facility] Blood Venous blood specimen / Unknown Venipuncture / Unknown 11/25/2024 3:41 PM EDT 11/25/2024 3:47 PM EDT us Sheldon B Raj LARSON LAB BLOOD ORDERABLES Final Resu lt [facility] [address] [place] [address], [place] [phone] * PA CRITICAL CARE 30-74 MINUTES (11/25/2024 3:16 PM [...] to be acidotic on VBG, with hypercarbia. us Sheldon Anthony MD IN CLINIC/BEDSIDE ORDERABLES Fi nal Result * XR Fluoro Up To 1 Hour (Statistics)(No Report) (11/20/2024 3:48 PM EDT) Narrative RIS PACS/VR - 11/20/2024 3:48 PM EDT This order has been auto-finalized and does not contain a result. us Laura Avalos MD IMG FLUOROSCOPY PROCEDURES Final Result RIS PACS/VR * TH AN ENDOTRACHEAL(NO CHARGE) (11/20/2024 2:12 PM EDT) Herb Landry MD - 11/20/2024 2:12 PM EDT Nasim Foy DO ? 11/20/2024 ??2:15 PM General Information and Staff Patient location during procedure: OR Anesthesiologist: Herb Jenkins MD Resident/APPLICATION SECURITY ENGINEER: Nasim Foy DO Performed: resident/APPLICATION SECURITY ENGINEER/CAA Performed by: Nasim Foy DO Authorized by: Herb Jenkins MD ?? Intubation Additional Comments Fiberoptic intubation for flexible bronchoscopy. No Complications. Patient tolerated procedure well. Urgency: elective Final Airway Details Successful airway: ETT Successful intubation technique: flexible bronchoscopy Endotracheal tube insertion site: oral ETT size (mm): 8.5 Placement verified by: chest auscultation and capnometry Number of attempts at approach: 1Final airway type: endotracheal airway Indications and Patient Condition Indications for airway management: anesthesia Spontaneous Ventilation: absent Sedation level: Yes Preoxygenated: yes Soft Tissue Damage: No Dentition Unchanged: Yes Patient position: sniffing MILS maintained throughout Mask difficulty assessment: 1 - vent by mask us Herb Jenkins MD ANESTHESIA ORDERABLES Final Resu lt * Tissue exam (11/20/2024 2:11 PM EDT) Final Diagnosis A. 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 B. Lung, left lower lobe, cryobiopsy: Lung parenchyma with small cell carcinoma. Note: The biopsy from the right upper lobe of lung shows lung parenchyma with foci of malignant neoplasm with features of nonkeratinizing squamous cell carcinoma with basaloid features. Immunoperoxidase stains in this biopsy (block A1) show the malignant cells to be strongly positive for p40 and pankeratin and to be negative for synaptophysin, chromogranin, CD56, TTF-1 and INSIM1, supporting the diagnosis. The biopsy from the left lower lobe shows lung parenchyma with a malignant neoplasm with features consistent with small cell carcinoma. Immunoperoxidase stains in this biopsy (block B1) shows the malignant cells to be positive for pankeratin and CD56 and focally positive for INSIM1 and to be negative for p40, TTF-1, synaptophysin and chromogranin, supporting the diagnosis of small cell carcinoma.. The Ki-67 shows a high proliferation index in both biopsies. The block from the biopsy of the right upper lobe is sent for molecular studies and a addendum will follow. Case reviewed at the intradepartmental surgical pathology conference on 11/26/[address]Amrita Avalos was notified on 11/26/2024 at 3:57 PM via [employer] secure chat 11/26/2024 6:56 PM EDT [facility] Gross Description A. Lung, Right Upper Lobe, CRYO RIGHT UPPER LOBE: Received in formalin labeled cryo right upper lobe are multiple pieces of manzo-brown tissue (0.4 x 0.3 x 0.2 cm in aggregate). Specimen is filtered directly into a biopsy bag and submitted entirely in cassette A1. RE 11/21/24 B. Lung, Left Lower Lobe, CRYO LEFT LOWER LOBE: Received in formalin labeled cryo left lower lobe are multiple pieces of manzo-brown tissue (0.3 x 0.2 x 0.2 cm in aggregate). Specimen is filtered directly into a biopsy bag and submitted entirely in cassette B1. RE 11/21/24 11/26/2024 6:56 PM EDT [facility] Disclaimer The interpretation of this case included the use of immunohistochemistr y, special stains, and/or analyte specific reagent(s). Unless otherwise specified, controls were performed and stained appropriately. These tests have not been cleared or approved by the U.S. Food and Drug Administration. The FDA has determined that such clearance or approval is not necessary. These tests are used for clinical purposes and should not be regarded as investigational or for research. This laboratory is certified to perform high complexity testing under the Clinical Laboratory Improvement Amendments of 1988. The technical components of [place] [address] CLIA # [id number] 11/26/2024 6:56 PM EDT [facility] Tissue Structure of upper lobe of right lung / Unknown 11/20/2024 2:11 PM EDT 11/21/2024 7:29 AM EDT Tissue specimen (specimen) Structure of lower lobe of left lung / Unknown 11/20/2024 2:57 PM EDT 11/21/2024 7:29 AM EDT us Laura Avalos MD LAB PATHOLOGY ORDERABLES F inal Result [facility] [address] [place] [address], [place] [phone] * Non-gynecologic cytology (11/20/2024 2:09 PM EDT) Final Diagnosis A. Lung, right upper lobe, FNA (ThinPrep and cell block): Malignant cells present. 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 Refer to biopsy specimen [id number]. B. Lung, right upper lobe, brush (ThinPrep and cell block): Malignant cells present. Hypocellular specimen with rare groups of malignant cells present, consistent with poorly differentiated non small cell carcinoma. C. Lung, right upper lobe, wash ((cellblock): Malignant cells present. Hypocellular specimen with rare groups of malignant cells present consistent with poorly differentiated non small cell carcinoma. D. Lung, left lower lobe, FNA (ThinPrep and cell block): Malignant cells present. Rare groups of malignant cells present, consistent with small cell carcinoma. Refer to biopsy specimen [id number]. E. Lung, left lower lobe, wash (cellblock): Negative malignant cells. Scattered benign bronchial epithelial cells and macrophages present. F. Lymph node, 11L, FNA (ThinPrep and cell block): Negative for malignant cells. Small lymphocytes present, consistent with lymph node sampling. G. Lymph node, level 7, FNA (ThinPrep and cell block): Negative for malignant cells. Lymphocytes present, consistent with lymph node sampling. H. Lymph node, 4R, FNA (ThinPrep and cell block): Negative for malignant cells. Lymphocytes present, consistent with lymph node sampling. 11/26/2024 7:04 PM EDT [facility] ([facility] Specimen A Adequacy Satisfactory for evaluation 11/26/2024 7:04 PM EDT [facility] Specimen B Adequacy Satisfactory for evaluation 11/26/2024 7:04 PM EDT [facility] Specimen C Adequacy Satisfactory for evaluation 11/26/2024 7:04 PM EDT [facility] Specimen D Adequacy Satisfactory for evaluation 11/26/2024 7:04 PM EDT [facility] Specimen E Adequacy Satisfactory for evaluation 11/26/2024 7:04 PM EDT [facility] Specimen F Adequacy Satisfactory for evaluation 11/26/2024 7:04 PM EDT [facility] Specimen G Adequacy Satisfactory for evaluation 11/26/2024 7:04 PM EDT [facility] Specimen H Adequacy Satisfactory for evaluation 11/26/2024 7:04 PM EDT [facility] Clinical Information IN CYTO 11/26/2024 7:04 PM EDT [facility] Gross Description A. Lung, Right Upper Lobe, FNA RIGHT UPPER LOBE: Received: 30cc clear CytoLyt with light flecks for ThinPrep and Cell Block. B. Lung, Right Upper Lobe, BRUSH RIGHT UPPER LOBE: Received: 1 brush in 30cc light pink CytoLyt with light flecks for ThinPrep and Cell Block. C. Lung, Right Upper Lobe, WASH RIGHT UPPER LOBE: Received: 35cc pink CytoLyt with light flecks for ThinPrep and Cell Block. D. Lung, Left Lower Lobe, FNA LEFT LOWER LOBE: Received: 35cc pink CytoLyt with light flecks for ThinPrep and Cell Block. E. Lung, Left Lower Lobe, WASH LEFT LOWER LOBE: Received: 35cc pink CytoLyt with light flecks and tissue fragments for ThinPrep and Cell Block. F. Lymph Node, 11L: Received: 35cc red CytoLyt light flecks and tissue fragments for ThinPrep and Cell Block. G. Lymph Node, LEVEL 7: Received: 35cc red CytoLyt with light flecks and tissue fragments for ThinPrep and Cell Block. H. Lymph Node, 4R: Received: 35cc slightly red CytoLyt with light flecks and tissue fragments for ThinPrep and Cell Block. 11/26/2024 7:04 PM EDT [facility] Disclaimer The technical components of [place] [address] CLIA # [id number] 11/26/2024 7:04 PM EDT [facility] Fine Needle Aspirate Structure of upper lobe of right lung / Unknown 11/20/2024 2:09 PM EDT 11/21/2024 7:17 AM EDT Comment:IN CYTO Brushing, function (observable entity) Structure of upper lobe of right lung / Unknown 11/20/2024 2:11 PM EDT 11/21/2024 7:17 AM EDT Comment:IN CYTO Specimen obtained by lavage (specimen) Structure of upper lobe of right lung / Unknown 11/20/2024 2:11 PM EDT 11/21/2024 7:17 AM EDT Comment:IN CYTO Specimen obtained by fine needle aspiration procedure (specimen) Structure of lower lobe of left lung / Unknown 11/20/2024 2:53 PM EDT 11/21/2024 7:17 AM EDT Comment:IN CYTO Specimen obtained by lavage (specimen) Structure of lower lobe of left lung / Unknown 11/20/2024 2:59 PM EDT 11/21/2024 7:17 AM EDT Comment:IN CYTO Specimen obtained by fine needle aspiration procedure (specimen) Lymph node specimen / Unknown 11/20/2024 3:40 PM EDT 11/21/2024 7:17 AM EDT Comment:IN CYTO Specimen obtained by fine needle aspiration procedure (specimen) Lymph node specimen / Unknown 11/20/2024 3:40 PM EDT 11/21/2024 7:17 AM EDT Comment:IN CYTO Specimen obtained by fine needle aspiration procedure (specimen) Lymph node specimen / Unknown 11/20/2024 3:41 PM EDT 11/21/2024 7:17 AM EDT Comment:IN CYTO us Laura Avalos MD LAB CYTOLOGY ORDERABLES Fi nal Result [facility] [address] [place] [address], [place] [phone] * Prothrombin time with INR (11/13/2024 11:40 AM EDT) Protime 11.9 10.6 - 13.9 sec LAB COAGULATION METHOD 11/13/2024 12:29 PM EDT [facility] INR 0.9 LAB COAGULATION METHOD 11/13/2024 12:29 PM EDT [facility] Blood Venous blood specimen / Unknown Venipuncture / Unknown 11/13/2024 11:40 AM EDT 11/13/2024 12:20 PM EDT Laura Avalos MD LAB BLOOD ORDERABLES Final Result Performing Organization Address City/[facility]/ZIP Co de Phone Number [facility] [address] [place] [address], [place] [phone] * External clinical lab (11/12/2024) Provider [facility] LAB BLOOD ORDERABLES Fin al Result * CT Chest w Contrast (10/31/2024 1:49 PM EDT) Anatomical Region Laterality Modality Body Computed Tomogra phy 10/31/2024 3:09 PM EDT Impressions 10/31/2024 3:40 PM EDT No change in right upper lobe nodule abutting the minor fissure centrally suspicious for primary lung neoplasm. No change in two additional nodules in the right medial lower lobe and peripheral left lower lobe suspicious for additional primary lung neoplasms. No thoracic lymphadenopathy. -------- FINAL REPORT -------- Dictated By: JAS LAROSE Dictated Date: 10/31/2024 15:09 ET Assigned Physician: JAS LAROSE Reviewed and Electronically Signed By: JAS LAROSE Signed Date: 10/31/2024 15:40 ET Workstation ID: [id number] Transcribed By: Self Edit Transcribed Date: 10/31/2024 15:09 ET Narrative 10/31/2024 3:40 PM EDT PROCEDURE: Chest CT INDICATION: hilar pulmonary nodule; ??lung cancer TECHNIQUE: Chest CT with intravenous administration of 90cc ISOVUE-370. Multi planar reformats were created and interpreted. The examination was performed utilizing dose reduction techniques. ??Total dose 531 COMPARISON: ??09/03/[address] and PET/CT 09/18/2024 FINDINGS: LUNGS/PLEURA: Central airways are patent. ??Severe emphysema. ??Right upper lobe central nodule abutting the right minor fissure measures 20 mm as compared to 20 mm prior. ??Left lower lobe peripheral nodule measures 12 mm as compared to 12 mm prior. ??7 mm subpleural nodule in the medial aspect of the right lower lobe is also unchanged. ??No new nodules. ??No pleural effusion or pneumothorax. MEDIASTINUM: Thyroid gland is unremarkable. No mediastinal or hilar lymphadenopathy. Cardiac chambers are normal in size. No pericardial effusion. Esophagus is normal. ??Mild coronary artery calcifications. CHEST WALL: No axillary lymphadenopathy or superficial hematoma. UPPER ABDOMEN:The visualized portions of the upper abdomen are unremarkable. BONES: No suspicious lytic or blastic lesions. Scattered degenerative changes seen throughout the bones. Procedure Note Jas Larose MD - 10/31/2024 PROCEDURE: Chest CT INDICATION: hilar pulmonary nodule; lung cancer TECHNIQUE: Chest CT with intravenous administration of 90cc ISOVUE-370.Multi planar reformats were created and interpreted. The examination wasperformed utilizing dose reduction techniques. Total dose 531 COMPARISON: 09/03/[address] and PET/CT 09/18/2024 FINDINGS: LUNGS/PLEURA: Central airways are patent. Severe emphysema. Right upperlobe central nodule abutting the right minor fissure measures 20 mm ascompared to 20 mm prior. Left lower lobe peripheral nodule measures 12 mmas compared to 12 mm prior. 7 mm subpleural nodule in the medial aspectof the right lower lobe is also unchanged. No new nodules. No pleuraleffusion or pneumothorax. MEDIASTINUM: Thyroid gland is unremarkable. No mediastinal or hilarlymphadenopathy. Cardiac chambers are normal in size. No pericardialeffusion. Esophagus is normal. Mild coronary artery calcifications. CHEST WALL: No axillary lymphadenopathy or superficial hematoma. UPPER ABDOMEN:The visualized portions of the upper abdomen areunremarkable. BONES: No suspicious lytic or blastic lesions. Scattered degenerativechanges seen throughout the bones. IMPRESSION: No change in right upper lobe nodule abutting the minor fissure centrallysuspicious for primary lung neoplasm. No change in two additional nodules in the right medial lower lobe andperipheral left lower lobe suspicious for additional primary lungneoplasms. No thoracic lymphadenopathy. -------- FINAL REPORT -------- Dictated By: JAS LAROSE Dictated Date: 10/31/2024 15:09 ET Assigned Physician: JAS LAROSE Reviewed and Electronically Signed By: JAS LAROSE Signed Date: 10/31/2024 15:40 ET Workstation ID: [id number] Transcribed By: Self Edit Transcribed Date: 10/31/2024 15:09 ET us Tunde Trejo MD IMG CT PROCEDURES Final Result * MR Brain wo and w Contrast [...] -------- FINAL REPORT -------- Dictated By: JAS LAROSE Dictated Date: 10/11/2024 13:11 ET Assigned Physician: JAS LAROSE Reviewed and Electronically Signed By: JAS LAROSE Signed Date: 10/11/2024 13:31 ET Workstation ID: [id number] Transcribed By: Self Edit Transcribed Date: 10/11/2024 [...] the calvarium or clivus. Procedure Note Jas Larose MD - 10/11/2024 PROCEDURE: Brain MRI INDICATION: [...] -------- FINAL REPORT -------- Dictated By: JAS LAROSE Dictated Date: 10/11/2024 13:11 ET Assigned Physician: JAS LAROSE Reviewed and Electronically Signed By: JAS LAROSE Signed Date: 10/11/2024 13:31 ET Workstation ID: [id number] Transcribed By: Self Edit Transcribed Date: 10/11/2024 13:11 ET us Tunde Trejo MD IMG MRI PROCEDURES Final Result * PET CT Skull to Mid Thigh [...] Signed Date: 09/18/2024 14:44 ET Workstation ID: [id number] Transcribed By: Self Edit Transcribed Date: 09/18/2024 [...] Signed Date: 09/18/2024 14:44 ET Workstation ID: [id number] Transcribed By: Self Edit Transcribed Date: 09/18/2024 14:34 ET us Jelena Hoff LEAK DETECTION ENGINEER IMG NM PROCEDURES Final Result * [...] Signed Date: 09/03/2024 11:30 ET Workstation ID: [id number] Transcribed By: Self Edit Transcribed Date: 09/03/2024 [...] Signed Date: 09/03/2024 11:30 ET Workstation ID: [id number] Transcribed By: Self Edit Transcribed Date: 09/03/2024 11:20 ET Jelena Hoff LEAK DETECTION ENGINEER IMG CT PROCEDURES Final Result * Lipid panel (06/08/2023) LDL/HDL Ratio 2 0 - 4 Triglycerides 121 0 - 150 mg/dL Cholesterol 175 0 - 200 mg/dL HDL 91 >=40 mg/dL LDL Cholesterol 60 0 - 100 mg/dL Blood Venous blood specimen / Unknown Historical Provider LAB BLOOD ORDERABLES Tamy l Result * DXA BONE DENSITY STUDY 1+ [...] (World Health Organization Fracture Risk Assessment) [facility] Department of Internal Medicine recommends using National [...] alternative screening schedule based on sadiq Franco., [facility] September 08, 2011 for patients with osteopenia [...] (World Health Organization Fracture Risk Assessment) [facility] Department of Internal Medicine recommendsusing National Osteoporosis [...] Resu lt * Hepatitis C Screening (05/13/2020) [facility] Hepatitis C Screening Abstracted Historical Provider MD HEALTH MAINTENANCE Final Result from Last 3 Months or Most Recently Relevant to Health Maintenance Insurance [employer] MEDICARE MEDICAID - [place] Advance Directives Documents on File Type Date Recorded 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 Do not modify or discontinue any currently active code status orders. * Full Code - Default Date Activated Date Inactivated Comments 11/20/2024 12:28 PM 11/20/2024 7:57 PM This is order is used when code status has not been discussed with the patient, or code status is otherwise unknown/unconfirmed To update the patient's code status, place a code status order. Do not modify or discontinue any currently active code status orders. Healthcare Agents on File Name Relationship Healthcare Agent Relationshi p Communication Deangelo Draper Spouse Health Care Agent Care Teams Product Manager E Commerce Relationship Specialty Start Date End Date Will Monroe MD [address] [place] [id number] PCP - General Internal Medicine 07/08/24
== END 2024-11-28 10:53 | disposition home or self-care (01) ==
LOC: HO.HOP 10:52
PROVIDERS: PCP Internal Medicine; Visit Provider Clinical Nurse Specialist Psychiatric/Mental Health
DX: F33.1 Major depressive disorder, recurrent, moderate (principal); R45.89 Other symptoms and signs involving emotional state; F43.11 Post-traumatic stress disorder, acute
CPT/HCPCS: 99213

== ENCOUNTER → 2024-11-28 10:52 | Outpatient (BNVA) | payer MEDICARE, SELFPAY | PROVIDERS: PCP Internal Medicine; Visit Provider Clinical Nurse Specialist Psychiatric/Mental Health | DX: Z13.89 Encounter for screening for other disorder (principal) ==

== ENCOUNTER 2024-12-26 14:20 | Outpatient (AMB) | payer MEDICARE, SELFPAY ==
--- NOTE | 2024-12-26 11:21 | MHC.OFFVISPS ---
Intake Intake Visit Reasons: depression Allergies No Known Allergies Allergy (Verified 01/30/24 12:28) Medication List - Last Reconciled 12/26/24 by Angie Neely APRN aripiprazole (Abilify) 5 mg PO DAILY carvedilol 12.5 mg PO BID clonidine HCl 0.1 mg PO BID clopidogrel 75 mg PO DAILY diazepam 10 mg PO TID PRN furosemide 20 mg PO DAILY levofloxacin mg PO mirtazapine 22.5 mg (1.5 x 15 mg) PO DAILY neomycin-polymyxin B-dexameth 3.5mg/mL-10,000 unit/mL-0.1 % drps ophthalmic (eye) ondansetron mg PO phenytoin sodium extended 100 mg PO TID prednisone 20 mg PO BID simvastatin 20 mg PO BEDTIME tiotropium bromide (Spiriva with HandiHaler) 1 cap inhalation DAILY vortioxetine (Trintellix) 5 mg PO DAILY HPI- Psychiatric Chief Complaint: depression HPI Narrative: pt more depressed and anxious; fearful about medical condition. has 3 cancerous masses and will str=art chemtherapy and radiation soon. has consultation with radiation specialist today. Pt reports she stopeed the trintellix due to sedation. no change i moood symtpoms; she has good support. denies SI and HI. asks to meet again next week. Past Psychiatric History: No IPLOC. anxiety started at age 3, always scared, constant worried thoughts, depression and anxiety for many years; her mother when she was 2 yo and pt had a difficult life with father and step mother intermittently being available- she and sister were frequently in foster care; pt has been in and out of treatment for years -outpatietn tx only . Subjective Subjective Subjective Medication Compliance: Yes Side effects from medications: Yes (sleepiness from trintellix) Review of Systems Medical Review of Systems: unchanged Mental Status Exam Mental Status Exam Patient Orientation: Person, Place, Time and Situation Level of Consciousness: Awake and Appropriate Patient Behavior: Appropriate Mood Description: Fearful and Sad Affect Description: Fearful and Sad Patient Cognition Impaired: No Ability to Follow Directions: Good Speech Pattern: Clear Memory Description: Intact Hallucinations: None Delusions: Not Present Thought Process: Intact and Goal Oriented Thought Content: positive for Intact and positive for Goal Oriented Judgement: Fair Telehealth Telehealth Telehealth Platform: Telephone Location of provider rendering services: practice address Location of patient: address on file Patient Identification confirmed using: Name, : Yes Telehealth method: voice only Patient verbally consented to treatment: Yes Patient verbally consented to billing insurance company: Yes Patient informed of any privacy concerns related to visit: Yes Minutes spent on Phone/Video with Pt.: 15 Assessment and Plan Assessment & Plan (1) Major depressive disorder, recurrent episode, moderate with anxious distress: Status: Acute Code(s): F33.1 - Major depressive disorder, recurrent, moderate (2) PTSD (post-traumatic stress disorder): Status: Acute Code(s): F43.10 - Post-traumatic stress disorder, unspecified (3) Anxiety about health: Status: Acute Code(s): R45.89 - Other symptoms and signs involving emotional state Medications: Refilled diazepam 10 mg PO TID PRN 90 tabs 2RF anxiety aripiprazole (Abilify) 5 mg PO DAILY 90 tabs 1RF mirtazapine 22.5 mg (1.5 x 15 mg) PO DAILY 45 tabs 2RF Counseling and coordination of Care Medication management counseling: Effectiveness, Side effects and Adherence Diagnosis and Prognosis Counseling: Accuracy of diagnosis, Prognosis over time and Adequacy of current interventions Details: I spent 25 minutes reviewing the record, seeing the patient and documenting in the medical record. Counseling provided to the patient/caregiver as outlined below. Addressed patient/caregiver concerns regarding current medication regime including effective adherence. Addressed patient/caregiver concerns regarding diagnosis and prognosis including accuracy of diagnosis, prognosis over time, impact of diagnosis. Addressed patient/caregiver concerns regarding impact of recent stressors. PFSH Social History: lives with ; 2 adult daughters- estranged from one Substance History: none Trauma History: foster care as child- multiple homes Coding Level of Care Code Tele Est Pt Level 3 (87982) Diagnoses Major depressive disorder, recurrent episode, moderate with anxious distress F33.1 PTSD (post-traumatic stress disorder) F43.10 Anxiety about health R45.89
--- OUTSIDE RECORDS SUMMARY | 2024-12-26 15:09 | XMS_ITS ---
Author Organization [address] [facility] Address [address] [place] [address] Phone Care Team Providers Care Desulfurizer Operator Name Role Phone Will Monroe MD Primary Care Provider [phone] Active Problems Problem Noted Date Diagnosed Date Small cell carcinoma of lung , unspecified laterality, unspecified part of lung (CMS/HCC V24, CMS/HCC V28) 12/26/2024 Rib pain on right side 12/25/2024 Hypoxic respiratory failure (CMS/HCC V24, CMS/HC C V28) 12/25/2024 Cognitive impairment 12/25/2024 CAD in [place] artery 12/25/2024 Lung nodule 12/03/2024 Acute respiratory failure wi th hypoxia and hypercapnia (CMS/HCC V24, CMS/HCC V28) 11/25/2024 Pulmonary nodule 10/07/2024 Assessment & [...] Hilar lymphadenopathy 10/07/2024 Osteopenia 09/16/2021 Psoriatic arthritis (CMS/[facility] V24, CMS/HCC V28) 1 10/12/2020 Overview (06/12/2024): Humira started 03/2021 History of COVID-19 08/11/2021 Overview (12/25/2024): June,: Decreased taste but otherwise no symptoms. This was a breakthrough infection as she had previously received 2 vaccination doses. Psoriasis 07/08/2020 Positive Lyme disease serology 06/18/2020 Overview (06/12/2024): External labs 05/2020, apparently treated with clindamycin Retreated - June 2020 - no response Elevated rheumatoid factor 06/11/2020 Overview (06/12/2024): External lab rheumatoid factor 339 05/2020 GERD (gastroesophageal reflux disease) 9 Helicobacter positive gastritis 10/23/2018 CKD (chronic kidney disease) stage 3, GFR 30-59 ml/min ([facility] V24, [facility] V28) 03/13/2018 Hyperlipidemia 03/13/2018 Multilevel degenerative disc disease 03/13/2018 Renal calculi 03/13/2018 Overview (06/12/2024): Right, small and nonobstructing Irritable bowel syndrome 03/08/2018 Dermatochalasis of both upper eyelids 11/22/2017 Overview (06/12/2024): Severe bilateral senile ptosis, 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 Nuclear sclerosis of both eyes 11/22/2017 Anxiety 07/24/2017 Overview (06/12/2024): Followed by Angie Neely, ADELA [address], 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 Headache 07/24/2017 Overview (06/12/2024): Intractable chronic post-traumatic h/a. Hypertension 07/24/2017 Occlusion of left carotid artery 07/24/2017 Overview (06/12/2024): MRA 04/24/14, MRA neck 01/12/2016: Occlusion of L ICA. Updated stable 12/01/17: No significant right internal carotid stenosis by Doppler Seizure disorder ([facility] V24, [facility] V28) 11/2016 Overview (06/12/2024): 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 On Dilantin Thrombocytopenia ([facility] V24) 07/24/2017 Vitamin D deficiency 07/24/2017 Current Oncology Plans No current plan information found. Past Plans No past plan information found. Radiation Treatments * No radiation treatments are documented for this patient in [facility]. Treatments may have been administered in another system. Lifetime Dose Tracking * Chemical Lifetime Dose Automatic Entry Manual Entr y Fluoro Time 7.49 minutes 7.49 minutes 0 minutes Air Kerma 300.5 mGy 300.5 mGy 0 mGy CTDIvol 10.56 mGy 10.56 mGy 0 mGy
--- OUTSIDE RECORDS SUMMARY | 2024-12-26 15:09 | XMS_ITS | Encounter Summary ---
Author Organization [facility] Address [address] [place] [address] Care Team Providers Care Liner Helper Name Role Phone Will Monroe MD Primary Care Provider [phone] Reason for Visit * Reason Onset Date Comments Procedure 12/06/2024 PAT , FOLLOW UP, AUTH Encounter Details Date Type Department Care Team (Late st Contact Info) Description 12/06/2024 Telephone Pulmonology - [address] [address] Laura Avalos MD [address] [place] [id number] Procedure (PAT , FOLLOW UP, AUTH ) Social History Tobacco Use Types Packs/Day Years Used Date Smoking Tobacco: Former Smokeless Tobacco: Current Alcohol Use Standard Drinks/Week Comments No 0 (1 standard drink = 0.6 oz pur e alcohol) Interpersonal Safety Answer Date Record ed Physical Abuse 12/10/2024 Verbal Abuse 12/10/2024 Comments No Sex and Gender Information Value Date Recorded Sex Assigned at Female 10/18/2024 2:01 PM EST Legal Sex Female 1:52 AM EST Gender Identity Female 10/18/2024 2:01 PM EST Sexual Orientation Straight 10/18/2024 2: 01 PM EST documented as of this encounter Progress Notes * Desi Looney - 12/06/2024 9:16 AM EDT Patient is schedule 12/10/24 at 7:30 am arrival time 6:00 am PAT not needed Follow up 12/24/24 at 1:00 pm AUTh Not needed spoke with Weston Brady account representative Reff [phone] [place] No other testing needed documented in this encounter Plan of Treatment Upcoming Encounters Date Type Department Care Team (Late st Contact Info) Description 01/07/2025 1:15 PM EDT Office Visit Adult Medicine [facility] [address] [place] [address] Will Monroe MD [address] [place] [address] 01/15/2025 1:00 PM EDT Office Visit [facility] Hematology Oncology [address] [place] [phone] Mihaela Barbour MD [address] [place] [address] 02/18/2025 11:00 AM EDT Office Visit Pulmonolgy - [place] 175 [facility] [address] [place] [phone] Jelena Hoff NP 175 [facility] [address] [place] [address] 03/11/2025 11:00 AM EDT Appointment [facility] Ultrasound [address] [place] [phone] 03/26/2025 11:00 AM EDT Office Visit Vascular Surgery - [place] 300 [facility] [address] [place] [phone] Krupa Garcia MD 300 [facility] [address] [place] [address] documented as of this encounter Visit Diagnoses Not on filedocumented in this encounter Care Teams Liner Helper Relationship Specialty Start Date End Date Will Monroe MD [address] [place] [address] PCP - General Internal Medicine 07/08/24 documented as of this encounter
--- OUTSIDE RECORDS SUMMARY | 2024-12-26 15:09 | XMS_ITS | Encounter Summary ---
Author Organization [facility] Address [address] [place] [address] Care Team Providers Care Text Transcriber Name Role Phone Will Monroe MD Primary Care Provider [phone] Reason for Visit * Reason Onset Date Comments faxed form 12/06/2024 [employer] plan of care 12/02/24 Encounter Details Date Type Department Care Team (Late st Contact Info) Description 12/06/2024 Telephone Adult [address] [phone] Will Monroe MD [address] [place] [phone] faxed form ([employer] plan of care 12/02/24) Social History Tobacco Use Types Packs/Day Years [...] as of this encounter Progress Notes * Kylie Snow LPN - 12/24/2024 9:23 AM EDT Plan of Care SOC 12/02/24 Cert Period 12/02/24-01/30/25 Signed, scanned and E faxed back to [phone] * Marian Kim - 12/06/2024 9:54 AM EDT [employer] plan of care 12/02/24 please sign and fax to [phone] documented in this encounter Plan of Treatment Upcoming Encounters Date Type Department Care Team (Late st Contact Info) Description 01/07/2025 1:15 PM EDT Office Visit Adult Medicine [facility] [address] [place] [address] Will Monroe MD [address] [place] [address] 01/15/2025 1:00 PM EDT Office Visit [facility] Hematology Oncology [address] [place] [phone] Mihaela Barbour MD [address] [place] [address] 02/18/2025 11:00 AM EDT Office Visit Pulmonolgy - [place] 175 [facility] [address] [place] [phone] Jelena Hoff NP 175 [facility] [address] [place] [address] 03/11/2025 11:00 AM EDT Appointment [facility] Ultrasound [address] [place] [phone] 03/26/2025 11:00 AM EDT Office Visit Vascular Surgery - [place] [address] [place] [address] Krupa Garcia MD [address] [place] [address] documented as of this encounter Visit Diagnoses Not on filedocumented in this encounter Care Teams Text Transcriber Relationship Specialty Start Date End Date Will Monroe MD [address] [place] [address] PCP - General Internal Medicine 07/08/24 documented as of this encounter
--- OUTSIDE RECORDS SUMMARY | 2024-12-26 15:09 | XMS_ITS | Clinical Summary ---
Author Organization [facility] Address [address] [place] [address] Care Team Providers Care Brand Leader Name Role Phone Unknown Primary Care Provider [phone] Allergies Active Allergy Reactions Criticality Noted Date Comments Aspirin Anaphylaxis,Rash/Dermatitis High 10/19/19 16 Azithromycin Hives Medium 01/03/2016 Latex Hives Medium 01/03/2016 Penicillins Anaphylaxis,Rash/Dermatitis High 016 Medications albuterol (ProAir HFA) 108 (90 Base) MCG/ACT inhaler Inhale 2 puffs. Active ARIPiprazole (ABILIFY) 5 MG tablet Take 5 mg by mouth every morning. 3 Active carvedilol (COREG) 12.5 MG tablet Take 12.5 mg by mouth 2 (two) times a day with meals. 3 Active cloNIDine (CATAPRES) 0.1 MG tablet Take 0.1 mg by mouth 2 (two) times a day. 3 Active clopidogrel (PLAVIX) 75 MG tablet Take 75 mg by mouth daily. 3 Active diazepam (VALIUM) 10 MG tablet TAKE ONE TABLET BY MOUTH THREE TIMES DAILY NEEDED FOR ANXIETY OR PANIC 3 Active simvastatin (ZOCOR) 20 MG tablet Take 20 mg by mouth nightly. 3 Active Spiriva HandiHaler 18 MCG inhalation capsule USE 1 CAPSULE FOR INHALATION ONCE A DAY DO NOT SWALLOW CAPSULE 3 Active levoFLOXacin (LEVAQUIN) 750 MG tabletIndications :COPD with acute exacerbation (HCC) Take 1 tablet (750 mg total) by mouth daily. 7 tablet 3 Active predniSONE (DELTASONE) 20 MG tabletIndications :COPD with acute exacerbation (HCC) Take 2 tablets (40 mg total) by mouth daily. 10 tablet 3 Active Active Problems Problem Noted Date Diagnosed Date COPD with acute exacerbation 02/28/2023 Social History Tobacco Use Types Packs/Day Years Used Date Smoking Tobacco: Never Assessed Comments Unknown Sex and Gender Information Value Date Recorded Sex Assigned at Not on file Legal Sex Female 2:35 PM EDT Gender Identity Not on file Sexual Orientation [...] 1-dose 75+ series) 2023 COVID-19 Vaccine ( - 2023-2 5 season) 2024 Influenza Vaccine 03/21/2025 Hepatitis B Vaccines Aged Out No long er eligible based on patient's age to complete this topic Insurance [facility] MEDICARE Care Teams Brand Leader Relationship Specialty Start Date End Date Unknown Unknow Provider Address PCP - General 02/28/23
--- OUTSIDE RECORDS SUMMARY | 2024-12-26 15:10 | XMS_ITS | Encounter Summary ---
Author Organization [facility] Address [address] [place] [address] Care Team Providers Care Agronomy Advisor Name Role Phone Will Monroe MD Primary Care Provider [phone] Reason for Visit * Reason Comments Follow-up Follow up 12/10 roro cruz Encounter Details Date Type Department Care Team ([facility] st Contact Info) Description 12/24/2024 1:00 PM EDT Office Visit Pulmonology - [address] [place] [address] Laura Avalos MD [address] [place] [address] Small cell lung cancer, left lower lobe (CMS/HCC V24, CMS/HCC V28) (Primary Dx); Pulmonary emphysema, unspecified emphysema type (CMS/HCC V24, CMS/HCC V28); 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 (CMS/HCC V24, CMS/HCC V28); 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 (CMS/HCC V24, CMS/HCC V28) Social History Tobacco Use Types Packs/Day Years [...] Sign Reading Time Taken Comments Blood Pressure 161/70 12/24/2024 1:06 PM EDT Pulse 72 12/24/2024 1:06 PM EDT Temperature 36.7 ??C (98.1 ??F) 12/24/2024 1 :06 PM EDT Respiratory Rate - - Oxygen Saturation 95% 12/24/2024 1:0 6 PM EDT on 2 liters of O2 Inhaled Oxygen Concentration - - Weight 76.9 kg (169 lb 8 oz) 12/24/2024 1:06 PM EDT Height 156.2 cm (5' 1.5 ) 12/24/2024 1: 06 PM EDT Body Mass Index 31.51 12/24/2024 1:06 PM EDT documented in this encounter Progress Notes * Laura Avalos MD - 12/24/2024 1:00 PM EDT Images from the original note were not included. Rita Draper : 1950 PCP: Will Monroe MD Chief Complaint:: lung nodules History of Present Illness: Rita Draper is a 74 y.o. female former smoker (quit around 2014, 50 pack years) PMH psoriasis on humira, seizures, COPD on 2 LPM O2, HTN, CVA, left carotid artery stenosison plavix who presents with PET avid lung nodules. Had CT scan 05/23/2024 at [facility] when she was admitted for hypoxemia and what sounds like COPD exacerbation. Reportedly this showed a LLL nodule that was suspicious. I am unable to see this scan. CT scan of the chest done on 09/03/[address] [facility] showed an increasing lobulated pulmonary nodule left lower lobe measuring 12 x 7 x [address] scans there is also a right upper lobe nodule measuring about 1 cm. She then had a PET scan done on 09/18/2024 which showed both nodules to be PET avid the perihilar nodule SUV max 11.7 and the left lower lobe nodule SUV max 2.5. She had PFTs on 07/22/2024 showed an FEV1 of 38% of predicted which goes up to 42% of predicted with bronchodilators and a DLCO VA of 35% of predicted. Pt was seen by General Pulmonary and by Thoracic Surgery. Referred to IP and had first clinic visit 10/25/24. Denies cough, hemoptysis, F/C, unintended wt loss, chest pain, chest tightness, +wheezing, no recent lung infections other than May 2024 in [place]. No night sweats. She is on plavix per Vascular surgery Krupa Garcia MD. She can walk around the house but gets SOB with anything beyond. Fam Hx: grandfather - lung cancer; father - emphysema. Worked as [employer]ER [employer]. Status post flexible and robotic bronchoscopy 11/20/2024 by me with biopsies of right upper lobe lungmass which shows squamous cell carcinoma PDL1 85%, as well as biopsies of left lower lobe nodule which shows small cell carcinoma. Full EBUS staging done with biopsies of 11L, 10L, 7, 4R all negativefor malignancy. I discussed results during multidisciplinary tumor board 12/02/24. Clinical stage I simultaneous primary squamous cell carcinoma right lung and clinical limited stagesmall cell carcinoma left lung. Additionally there is a third lesion 6-7 mm paraesophageal in the right lower lobe. On CT chest and PET scan previously this lesion was not noted, however is visible in a different view on PET scan. It is read as not grown however on review review in multidisciplinary tumor board there is some possible growth of this nodule in the right lower lobe. After discussionwith oncology and radiation oncology, decision made to attempt biopsy of the 6-7 mm right lower lobe lesion to further guide radiation treatment. Plan is for systemic chemoradiation and pt has been referred to Onc and Rad Onc. MRI brain is negative. S/p bronchoscopy, EUS-B FNA with biopsies of RLL nodule at [facility] 12/10/2024. Patient reports feelingfine post bronchoscopy, no increased sputum production, wheezing, chest tightness, shortness of breath. Denies hemoptysis. Has resumed Plavix. Results of FNA from EUS B shows squamous cell carcinoma. Allergies: Allergies Allergen Reactions Aspirin Rash Other Reaction(s): Rash/Dermatitis Azithromycin Nausea And Vomiting Latex Hives Other Reaction(s): Hives/Urticaria Penicillins Rash Other Reaction(s): Rash/Dermatitis Sulfa (Sulfonamide Antibiotics) Hives Other Reaction(s): Hives/Urticaria Tetracycline Nausea And Vomiting Medications: Current Outpatient Medications Medication Instructions adalimumab (Humira,CF, Pen) 40 mg/0.4 mL pen Inject 40 mg into the skin every 14 days for 28 days. albuterol 2.5 mg /3 mL (0.083 %) nebulizer solution Take 1 Vial by nebulization every 6 hours as needed for Wheezing or Shortness of Breath for up to 180 days. albuterol HFA (PROAIR HFA ; PROVENTIL HFA ; VENTOLIN HFA) 90 mcg/actuation inhaler 2 puffs, inhalation, Every 4 hours PRN ARIPiprazole (ABILIFY) 5 mg tablet Take 1 tablet (5 mg total) by mouth 1 (one) time each day. carvediloL (COREG) 12.5 mg, oral, 2 times daily cloNIDine (CATAPRES) 0.1 mg, oral, 2 times daily clopidogreL (PLAVIX) 75 mg tablet TAKE ONE TABLET DAILY diazePAM (VALIUM) 10 mg tablet Take 1 Tablet by mouth every 8 hours as needed for Anxiety. diclofenac (VOLTAREN) 1 % topical gel Apply 4 g topically 4 times daily. docusate sodium (COLACE) 100 mg capsule Take 1 Cap by mouth 2 times daily for 30 days. fluticasone-salmeterol (ADVAIR DISKUS) 250-50 mcg/dose diskus inhaler 1 puff, inhalation, 2 times daily, Inhale 1 Puff into the lungs 2 times daily. furosemide (LASIX) 20 mg, oral, Daily mirtazapine (REMERON) 15 mg tablet Take 1.5 tablets (22.5 mg total) by mouth at bedtime. nicotine (NICODERM CQ) 14 mg/24 hr 1 patch, transdermal, Daily ondansetron ODT (ZOFRAN-ODT) 4 mg disintegrating tablet DISSOLVE ONE TABLET IN MOUTH EVERY EIGHT HOURS NEEDED FOR NAUSEA phenytoin (DILANTIN) 100 mg, oral, 2 times daily simvastatin (ZOCOR) 20 mg, oral, Nightly, at bedtime. tiotropium (SPIRIVA WITH HANDIHALER) 18 mcg, inhalation, Daily Trintellix 5 mg, Daily Past Medical History: Diagnosis Date Anxiety 07/24/2017 DX:Anxiety 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 Updated stable 12/01/17: No significant right internal carotid stenosis by Doppler CKD (chronic kidney disease) stage 3, GFR 30-59 ml/min ([facility] V24, [facility] V28) 03/13/2018 DX:CKD (chronic kidney disease) stage 3, GFR 30-59 ml/min ([facility]) COPD (chronic obstructive pulmonary disease) ([facility] V24, [facility] V28) 07/24/2017 DX:COPD (chronic obstructive pulmonary disease) ([facility]); COMMENT: Chronic bronchitis Depression 07/24/2017 [...] COMMENT: Right, small and nonobstructing Seizure disorder ([facility] V24, [facility] V28) 07/24/2017 DX:Seizure disorder ([facility]); COMMENT: 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 On Dilantin Thrombocytopenia ([facility]/HCC V24) 07/24/2017 DX:Thrombocytopenia (HCC) Vitamin D deficiency 07/24/2017 DX:Vitamin D deficiency Past Surgical History: Procedure Laterality Date APPENDECTOMY PROCEDURE: HISTORICAL APPENDECTOMY; COMMENT: age 10 BLEPHAROPLASTY DENTAL SURGERY wears partial bridge per pt OOPHORECTOMY Right PROCEDURE: HISTORICAL OOPHORECTOMY; COMMENT: partial OTHER SURGICAL HISTORY Left 09/2016 PROCEDURE: ME OPTX ILIAC TUBRST AVLS/WING FX FIXJ IF PRFRMD; COMMENT: s/p pelvic repair, [place]'s TONSILLECTOMY PROCEDURE: HISTORICAL TONSILLECTOMY UPPER GASTROINTESTINAL ENDOSCOPY 10/03/2018 PROCEDURE: UPPER GI ENDOSCOPY/EXAM; COMMENT: mild edema UPPER GASTROINTESTINAL ENDOSCOPY 02/13/2019 PROCEDURE: UPPER GI ENDOSCOPY/EXAM; COMMENT: non specific edema, biopsy pending Family History Problem Relation Name Age of Onset Coronary artery disease Mother at 32 Hypertension Father Chronic Lung Disease, depression/anxiety, glaucoma, arthritis Blindness Father Cataracts Father Glaucoma Father Arthritis Father Asthma Sister Chronic Lung Disease, RA Arthritis Sister No Known Problems Aunt No Known Problems Uncle No Known Problems Other Macular degeneration Neg Hx Strabismus Neg Hx Social History Socioeconomic History Marital status: Spouse name: Not on file Number of children: Not on file Years of education: Not on file Highest education level: Not on file Occupational History Not on file Tobacco Use Smoking status: Former Smokeless tobacco: Current Vaping Use Vaping status: Some Days Substance and Sexual Activity Alcohol use: No Drug use: No Sexual activity: Not on file Comment: to Paulie Other Topics Concern Not on file Social History Narrative Not on file Review of Systems Constitutional: Negative. HENT: Negative. Eyes: Negative. Respiratory: Positive for shortness of breath. Cardiovascular: Negative. Gastrointestinal: Negative. Endocrine: Negative. Genitourinary: Negative. Musculoskeletal: Negative. Skin: Negative. Breast: negative. Allergic/Immunologic: Negative. Neurological: Negative. Hematological: Negative. Psychiatric/Behavioral: Negative. Vitals: 12/24/24 1306 BP: (!) 161/70 Pulse: 72 Temp: 36.7 ??C (98.1 ??F) SpO2: 95% Body mass index is 31.51 kg/m??. General: No acute distress HEENT: mucous membranes moist Neck: no JVD, supple neck Chest: decreased breath sounds throughout, no wheezes or crackles, no prolonged expiratory phase CVS: S1-S2, regular rhythm, no murmurs Abdomen: Nondistended Extremities: No edema, warm, distal pulses present Skin: No rashes or lesions Neuro: Alert and oriented x 3 Lab Results Component Value Date ALBUMIN 3.6 11/25/2024 ALT 39 11/25/2024 AST 60 (H) 11/25/2024 BUN 27 (H) 12/02/2024 CALCIUM 9.2 12/02/2024 CL 98 12/02/2024 CHOL 175 06/08/2023 CO2 35 (H) 12/02/2024 CREATININE 0.98 12/02/2024 HDL 91 06/08/2023 HCT 40.0 11/26/2024 HGB 13.1 11/26/2024 LDL 60 06/08/2023 MG 2.0 11/26/2024 PHOS 2.6 11/26/2024 PLT 137 11/26/2024 K 3.9 12/02/2024 NA 137 12/02/2024 TRIG 121 06/08/2023 WBC 7.3 11/26/2024 Pulmonary Function Results: DATE OF SERVICE: 07/22/24 SPIROMETRY: FEV1 is [...] NIOX was not elevated at 16 ppb Imaging: I personally reviewed imaging and the data revealed: CT chest with contrast October 2024: PET CT Aug 2024: Aug 2024: Visit Diagnoses: 1. Small cell lung cancer, left lower lobe (CMS/HCC V24, CMS/HCC V28) 2. Pulmonary emphysema, unspecified emphysema type (CMS/HCC V24, CMS/HCC V28) 3. 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 (CMS/HCC V24, CMS/HCC V28) Impression: Right upper lobe PET avid nodule SUV 11.7 - squamous cell carcinoma Left lower lobe PET avid nodule SUV 2.5 - small cell carcinoma Borderline right lower paratracheal lymphadenopathy - PET negative, EBUS negative Right lower lobe paraesophageal nodule 6-7 mm, PET positive Severe panlobular emphysema Hypoxemic respiratory failure, 2 L/min O2 S/p flexible and robotic bronchoscopy November 2024 which established the diagnoses above. Reviewed thoroughly in multidisciplinary tumor board. RLL 6-7 mm nodule paraesophageal with slight growth - will need biopsy via EUS, and will affect radiation field Had flexible bronchoscopy, EUS-B FNA, fluoroscopy done at [facility] with biopsies of RLL lesion showingsquamous cell carcinoma. Recommendations: -Cont follow up with General Pulm for advanced COPD -Referral to Radiation Onc, has not been seen yet. We will follow-up on this -No specific IP follow-up needed Today I have spent 40 minutes on this encounter with the following activities: Pre-visit review of chart Pre-visit review of imaging Reviewing patient provided information Personal face to face with patient (including discussion counseling) History and physical examination Medication reconciliation Discussion of laboratory results and pathology Discussion with consulting/referring physician(s) Coordination of care including with office staff and nurse navigation Documentation. Laura Avalos MD [place] [address] Office [phone] documented in this encounter Plan of Treatment Upcoming Encounters Date Type Department Care Team (Late st Contact Info) Description 01/07/2025 1:15 PM EDT Office Visit Adult Medicine [address] [address] Will Monroe MD [address] [place] [phone] 01/15/2025 1:00 PM EDT Office Visit [facility] Hematology Oncology [address] [place] [phone] Mihaela Barbour MD [address] [place] [address] 02/18/2025 11:00 AM EDT Office Visit Pulmonolgy - [place] [address] [facility] [address] [place] [address] Jelena Hoff, CARY [address] [facility] [address] [place] [address] 03/11/2025 11:00 AM EDT Appointment [facility] Ultrasound [address] [place] [phone] 03/26/2025 11:00 AM EDT Office Visit Vascular Surgery - [place] [address] [place] [address] Krupa Garcia MD [address] [facility] [address] [place] [address] documented as of this encounter Visit Diagnoses Diagnosis Small cell lung cancer, left lower lobe (CMS/HCC V24, CMS/HCC V28)- Primary Pulmonary emphysema, unspecified emphysema type (CMS/HCC V24, CMS/HCC V28) 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
--- OUTSIDE RECORDS SUMMARY | 2024-12-26 15:10 | XMS_ITS | Encounter Summary ---
Author Organization [facility] Address [address] [place] [address] Care Team Providers Care Front Office Supervisor Name Role Phone Will Monroe MD Primary Care Provider [phone] Encounter Details Date Type Department Care Team (Late Contact Info) Description 12/25/2024 Telephone [facility] Radiation Oncology [address] [place] [phone] Omaira Varghese MA Social History Tobacco Use Types Packs/Day [...] as of this encounter Progress Notes * Omaira Varghese MA - 12/25/2024 10:20 AM EDT Spoke with pt aware of date/time of consult scheduled. documented in this encounter Plan of Treatment Upcoming Encounters Date Type Department Care Team (Late st Contact Info) Description 01/07/2025 1:15 PM EDT Office Visit Adult Medicine [facility] [address] [place] [address] Will Monroe MD [address] [place] [address] 01/15/2025 1:00 PM EDT Office Visit [facility] Hematology Oncology [address] [place] [phone] Mihaela Barbour MD [address] [place] [address] 02/18/2025 11:00 AM EDT Office Visit Pulmonolgy - [place] [address] [facility] [address] [place] [phone] Jelena Hoff NP [address] [address] 03/11/2025 11:00 AM EDT Appointment [facility] Ultrasound [address] [place] [phone] 03/26/2025 11:00 AM EDT Office Visit Vascular Surgery - [place] [address] [place] [address] Krupa Garcia MD 300 [facility] [address] [place] [address] documented as of this encounter Visit Diagnoses Not on filedocumented in this encounter Care Teams Front Office Supervisor Relationship Specialty Start Date End Date Will Monroe MD [address] [place] [phone] PCP - General Internal Medicine 07/08/24 documented as of this encounter
--- OUTSIDE RECORDS SUMMARY | 2024-12-26 15:10 | XMS_ITS | Encounter Summary ---
Author Organization 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 (CMS/HCC V24, CMS/HCC V28) Procedures PET CT Skull to Mid Thigh Subsequent Alba Zapien MD [address] [place] [address] Phone: tel: fax: [address] [phone] Phone: tel: Referral ID Status Reason Start Date Expiration Date V isits Requested Visits Authorized [id number] Pending Review 12/26/2024 12/26/2025 1 1 * Radiation Therapy (Routine) - Pending Review Specialty Diagnoses / Procedures Referred By Contac t Referred To Contact Radiation Oncology Diagnoses Small cell carcinoma of lung, unspecified laterality, unspecified part of lung (CMS/HCC V24, CMS/HCC V28) Procedures Rad Onc Treatment Planning Simulation Alba Zapien MD [address] [place] [address] Phone: tel: fax: Referral ID Status Reason Start Date Expiration Date V isits Requested Visits Authorized [id number] Pending Review 12/26/2024 12/26/2025 1 1 * Consultation (Urgent) - Authorized Specialty Diagnoses / Procedures Referred By Contac t Referred To Contact Radiation Oncology Diagnoses Small cell carcinoma of lung, unspecified laterality, unspecified part of lung (CMS/HCC V24, CMS/HCC V28) Mihaela Barbour MD [address] [place] [address] Phone: tel: fax: [facility] Radiation Oncology [address] [place] [phone] Phone: tel: fax: Referral ID Status Reason Start Date Expiration Date Visits Requested Visits Authorized [id number] Authorized Specialty Services Required 12/23/2024 12/23/2025 1 1 Reason for Visit * Reason Comments Consult Small cell carcinoma of lung * Consultation (Urgent) - Authorized Specialty Diagnoses / Procedures Referred By Contac t Referred To Contact Radiation Oncology Diagnoses Small cell carcinoma of lung, unspecified laterality, unspecified part of lung (CMS/HCC V24, CMS/HCC V28) Mihaela Barbour MD [address] [place] [address] Phone: tel: fax: [facility] Radiation Oncology [address] [place] [phone] Phone: tel: fax: Referral ID Status Reason Start Date Expiration Date Visits Requested Visits Authorized [id number] Authorized Specialty Services Required 12/23/2024 12/23/2025 1 1 Encounter Details Date Type Department Care Team (Latest Contact Info) Description 12/26/2024 1:25 PM EDT Hospital Encounter [facility] Radiation Oncology [address] [place] [address] Alba Zapien MD [address] [place] [address] Small cell carcinoma of lung, unspecified laterality, unspecified part of lung ([facility] V24, CMS/[facility] V28) (Primary Dx); 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 ([facility] V24, [facility] V28) Social History Tobacco Use Types Packs/Day Years Used Date Smoking Tobacco: Former Smokeless Tobacco: Current Tobacco Cessation:Ready to Q uit: No Comments:E-Cigarettes Alcohol Use Standard Drinks/Week Comments No 0 [...] Sign Reading Time Taken Comments Blood Pressure 108/58 12/26/2024 1:42 PM EDT Pulse 68 12/26/2024 1:42 PM EDT Temperature - - Respiratory Rate - - Oxygen Saturation 97% 12/26/2024 1:42 PM EDT Inhaled Oxygen Concentration - - Weight 76.7 kg (169 lb 3.2 oz) 12/26/2024 1:42 P M EDT Height 163.8 cm (5' 4.5 ) 12/26/2024 1:42 PM EDT Body Mass Index 28.59 12/26/2024 1:42 PM EDT documented in this encounter Progress Notes * Rowena Garibay NP - 12/26/2024 2:00 PM EDT Oncological History: 09/03/[address](follow-up on nodules from pulmonary): Interval enlargement of the left lower lobe pulmonary nodule as detailed. Possibility of malignancy should be considered. arm interval progression of the lobulated pleural-based pulmonary nodule in the left lower lobe which on today's study measures 12 x 7.4 x 8.3 mm 09/18/2024 PET/CT: Metabolically active right upper lobe and left lower lobe pulmonary nodules suspicious for possibly 2 separate lung carcinomas in the setting of severe emphysematous disease. 10/11/2024 Brain MRI: No acute findings or intracranial metastatic disease. 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 Abnormal left internal carotid artery flow void may be due to slow flow or occlusion. 10/31/[address]: No change in right upper lobe nodule abutting the minor fissure centrally suspicious for primary lung neoplasm. No change in two additional nodules in the right medial lower lobe and peripheral left lower lobe suspicious for additional primary lung neoplasms. No thoracic lymphadenopathy. 11/20/[address] Avalos Final Diagnosis A. 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 B. Lung, left lower lobe, cryobiopsy: Lung parenchyma with small cell carcinoma. Final Diagnosis A. Lung, right upper lobe, FNA (ThinPrep and cell block): Malignant cells present. 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 Refer to biopsy specimen [id number]. B. Lung, right upper lobe, brush (ThinPrep [...] small cell carcinoma. Refer to biopsy specimen [id number]. E. Lung, left lower lobe, wash (cellblock): [...] Lymphocytes present, consistent with lymph node sampling. 12/04/[address] Barbour 12/10/2024 Bronchoscopy with EBUS with Dr. Avalos. Final Diagnosis Lung, right lower lobe, fine needle aspiration (ThinPrep, cell block): Squamous cell carcinoma, keratinizing 12/25/2024 Follow-up with Dr. Barbour. Follow-Up 02/18/2025 Pulmonary * Thais Mayberry MA - 12/26/2024 2:00 PM EDT Patient is here for in office consult with Dr. Zapien, accompanied by her Deangelo. Patient reports bedroom and bathroom are upstairs. She reports shortness of breath by the time she gets to the top. Patient currently using e-cigarettes daily. Patient is currently using 2L of oxygen with movement. She does not use if she is just at home sitting down. Medications and allergies reviewed and reconciled. * Alba Zapien MD - 12/26/2024 2:00 PM EDT [address] [phone] Radiation Oncology Outpatient Consult Staff Physician: Alba Zapien MD Requesting Physician: Mihaela Barbour MD Date of Service: 12/26/2024 Accompanied by: Diagnosis: 1. Small cell carcinoma of lung, unspecified laterality, unspecified part of lung (CMS/HCC V24, CMS/HCC V28) Ambulatory referral to Radiation Oncology Ambulatory referral to Radiation Oncology Stage: Cancer Staging No matching staging information was found for the patient. Assessment/Plan IMPRESSION: 74-year-old lady with severe COPD now with a right upper lobe and right lower lobe squamous cell carcinoma and a left lower lobe small cell carcinoma of the lung. Stage I RUL and RLL squamous cell and Stage I/limited stage small cell of LLL PLAN: I reviewed with her the findings on her scans. We talked about all the biopsy that she has had done. We reviewed how at this point the initial plan is to start treatment for the small cell lung cancer. We talked about how we would incorporate treatments for the 2 small squamous cells as well. We reviewed the simulation process. We reviewed the daily treatment regiment. We talked about how she will receive radiation Monday through Monday and get weekly chemotherapy. We discussed the risks and side effects of treatment both acute and long-term. All of her questions were answered. Unfortunatelyall of her scans were at least 3 to 5 months old. I will order a new PET scan prior to the simulation which we will get scheduled as soon as possible. Electronically signed by Alba Zapien MD Subjective ncological History: 09/03/[address](follow-up on nodules from pulmonary): Interval enlargement of the left lower lobe pulmonary nodule as detailed. Possibility of malignancy should be considered. arm interval progression of the lobulated pleural-based pulmonary nodule in the left lower lobe which on today's study measures 12 x 7.4 x 8.3 mm 09/18/2024 PET/CT: Metabolically active right upper lobe and left lower lobe pulmonary nodules suspicious for possibly 2 separate lung carcinomas in the setting of severe emphysematous disease. 10/11/2024 Brain MRI: No acute findings or intracranial metastatic disease. 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 Abnormal left internal carotid artery flow void may be due to slow flow or occlusion. 10/31/[address]: No change in right upper lobe nodule abutting the minor fissure centrally suspicious for primary lung neoplasm. No change in two additional nodules in the right medial lower lobe and peripheral left lower lobe suspicious for additional primary lung neoplasms. No thoracic lymphadenopathy. 11/20/[address] Avalos Final Diagnosis A. 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 B. Lung, left lower lobe, cryobiopsy: Lung parenchyma with small cell carcinoma. Final Diagnosis A. Lung, right upper lobe, FNA (ThinPrep and cell block): Malignant cells present. 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 Refer to biopsy specimen [id number]. B. Lung, right upper lobe, brush (ThinPrep [...] small cell carcinoma. Refer to biopsy specimen [id number]. E. Lung, left lower lobe, wash (cellblock): [...] Lymphocytes present, consistent with lymph node sampling. 12/04/[address] Barbour 12/10/2024 Bronchoscopy with EBUS with Dr. Avalos. Final Diagnosis Lung, right lower lobe, fine needle aspiration (ThinPrep, cell block): Squamous cell carcinoma, keratinizing 12/25/2024 Follow-up with Dr. Barbour. Follow-Up HISTORY OF PRESENT ILLNESS: Rita Draper is a 74 y.o. female who presents with both small cell and squamous of carcinoma of the lung and is seen in consultation today for combined modality therapy for the small cell carcinoma ofthe lung. 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) CKD (chronic kidney disease) stage 3, GFR 30-59 ml/min (CMS/HCC V24, CMS/HCC V28) COPD with acute exacerbation ([facility] V24, [facility] V28) Depression Dermatochalasis of both upper eyelids Elevated rheumatoid factor Facial palsy GERD (gastroesophageal reflux disease) Headache Helicobacter positive gastritis Hypertension Hyperlipidemia Irritable bowel syndrome Multilevel degenerative disc disease Nuclear sclerosis of both eyes Occlusion of left carotid artery Osteopenia Positive Lyme disease serology Psoriasis Psoriatic arthritis ([facility] V24, [facility] V28) Renal calculi Seizure disorder ([facility] V24, [facility] V28) Thrombocytopenia ([facility] V24) Vitamin D deficiency Pulmonary nodule Hilar lymphadenopathy Acute respiratory failure with hypoxia and hypercapnia ([facility] V24, [facility] V28) Lung nodule Rib pain on right side Hypoxic respiratory failure ([facility] V24, [facility] V28) History of COVID-19 Cognitive impairment CAD in [place] artery PAST MEDICAL HISTORY: Past Medical History: Diagnosis Date Anxiety 07/24/2017 DX:Anxiety 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 Updated stable 12/01/17: No significant right internal carotid stenosis by Doppler CKD (chronic kidney disease) stage 3, GFR 30-59 ml/min ([facility] V24, [facility] V28) 03/13/2018 DX:CKD (chronic kidney disease) stage 3, GFR 30-59 ml/min ([facility]) COPD (chronic obstructive pulmonary disease) ([facility] V24, [facility] V28) 07/24/2017 DX:COPD (chronic obstructive pulmonary disease) ([facility]); COMMENT: Chronic bronchitis Depression 07/24/2017 DX:Depression Dermatochalasis [...] COMMENT: Right, small and nonobstructing Seizure disorder ([facility] V24, [facility] V28) 07/24/2017 DX:Seizure disorder ([facility]); COMMENT: 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 On Dilantin Thrombocytopenia ([facility]/HCC V24) 07/24/2017 DX:Thrombocytopenia ([facility]) Vitamin D deficiency 07/24/2017 DX:Vitamin D deficiency PAST SURGICAL HISTORY: Past Surgical History: Procedure Laterality Date APPENDECTOMY PROCEDURE: HISTORICAL APPENDECTOMY; COMMENT: age 10 BLEPHAROPLASTY DENTAL SURGERY wears partial bridge per pt OOPHORECTOMY Right PROCEDURE: HISTORICAL OOPHORECTOMY; COMMENT: partial OTHER SURGICAL HISTORY Left 09/2016 PROCEDURE: HI OPTX ILIAC TUBRST AVLS/WING FX FIXJ IF PRFRMD; COMMENT: s/p pelvic repair, Cavalier's TONSILLECTOMY PROCEDURE: HISTORICAL TONSILLECTOMY UPPER GASTROINTESTINAL ENDOSCOPY 10/03/2018 PROCEDURE: UPPER GI ENDOSCOPY/EXAM; COMMENT: mild edema UPPER GASTROINTESTINAL ENDOSCOPY 02/13/2019 PROCEDURE: UPPER GI ENDOSCOPY/EXAM; COMMENT: non specific edema, biopsy pending GYNECOLOGICAL HISTORY (if applicable): NA [place] [employer] History LMP: LMP Unknown, Postmenopausal Age at Menarche: Age at First : Age at Menopause: [place] Maker History Comments: Sexual Activity: No sexual activity data on record; No partner data on record; to Paulie Contraception: No contraception data on record FAMILY HISTORY: Family History Adopted: Yes Problem Relation Name Age of Onset Coronary artery disease Mother at 32 Hypertension Father Chronic Lung Disease, depression/anxiety, glaucoma, arthritis Blindness Father Cataracts Father Glaucoma Father Arthritis Father Asthma Sister Chronic Lung Disease, RA Arthritis Sister Cancer Maternal Grandfather No Known Problems Aunt No Known Problems Uncle No Known Problems Other Macular degeneration Neg Hx Strabismus Neg Hx SOCIAL HISTORY: Social History Socioeconomic History Marital status: Spouse name: Deangelo Number of children: Not on file Years of education: Not on file Highest education level: Not on file Occupational History Not on file Tobacco Use Smoking status: Former Smokeless tobacco: Current Tobacco comments: E-Cigarettes Vaping Use Vaping status: Some Days Substances: Nicotine Substance and Sexual Activity Alcohol use: No Drug use: No Sexual activity: Not on file Comment: to [place] Other Topics Concern Not on file Social History Narrative Not on file ALLERGIES: Allergies as of 12/26/2024 - Reviewed 12/26/2024 Allergen Reaction Noted Aspirin Rash and Anaphylaxis 10/19/2015 Penicillins Rash and Anaphylaxis 10/19/2015 Azithromycin Nausea And Vomiting and Hives 01/03/2016 Tetracyclines Nausea And Vomiting 02/27/2024 Latex Hives 07/24/2017 Sulfa (sulfonamide antibiotics) Hives 07/24/2017 Tetracycline Nausea And Vomiting 03/13/2018 MEDICATIONS: Current Outpatient Medications: adalimumab (Humira,CF, Pen) 40 mg/0.4 mL pen, Inject 40 mg into the skin every 14 days for 28 days., Disp: , Rfl: albuterol 2.5 mg /3 mL (0.083 %) nebulizer solution, Take 1 Vial by nebulization every 6 hours as needed for Wheezing or Shortness of Breath for up to 180 days., Disp: , Rfl: albuterol HFA (PROAIR HFA ; PROVENTIL HFA ; VENTOLIN HFA) 90 mcg/actuation inhaler, Inhale 2 puffs by mouth every 4 (four) hours if needed for wheezing or shortness of breath., Disp: 36 g, Rfl: 5 ARIPiprazole (ABILIFY) 5 mg tablet, Take 1 tablet (5 mg total) by mouth 1 (one) time each day., Disp: , Rfl: carvediloL (COREG) 12.5 mg tablet, TAKE ONE TABLET TWICE DAILY, Disp: 180 tablet, Rfl: 1 cloNIDine (CATAPRES) 0.1 mg tablet, TAKE ONE TABLET TWICE DAILY, Disp: 180 tablet, Rfl: 1 diazePAM (VALIUM) 10 mg tablet, Take 1 Tablet by mouth every 8 hours as needed for Anxiety., Disp: , Rfl: docusate sodium (COLACE) 100 mg capsule, Take 1 Cap by mouth 2 times daily for 30 days., Disp: , Rfl: fluticasone-salmeterol (ADVAIR DISKUS) 250-50 mcg/dose diskus inhaler, Inhale 1 puff by mouth 2 (two) times a day. Inhale 1 Puff into the lungs 2 times daily., Disp: 3 each, Rfl: 3 furosemide (LASIX) 20 mg tablet, Take 1 tablet (20 mg total) by mouth 1 (one) time each day., Disp:30 each, Rfl: 0 mirtazapine (REMERON) 15 mg tablet, Take 1.5 tablets (22.5 mg total) by mouth at bedtime., Disp: , Rfl: ondansetron ODT (ZOFRAN-ODT) 4 mg disintegrating tablet, DISSOLVE ONE TABLET IN MOUTH EVERY EIGHT HOURS NEEDED FOR NAUSEA, Disp: 40 each, Rfl: 1 phenytoin (DILANTIN) 100 mg ER capsule, Take 1 capsule (100 mg total) by mouth 2 (two) times a day., Disp: 270 capsule, Rfl: 0 simvastatin (ZOCOR) 20 mg tablet, Take 1 tablet (20 mg total) by mouth at bedtime. at bedtime., Disp: 90 tablet, Rfl: 1 tiotropium (Spiriva with HandiHaler) 18 mcg per inhalation capsule, Place 1 capsule (18 mcg total) into inhaler and inhale 1 (one) time each day., Disp: 3 each, Rfl: 3 clopidogreL (PLAVIX) 75 mg tablet, TAKE ONE TABLET DAILY (Patient not taking: Reported on 12/26/2024), Disp: 90 tablet, Rfl: 1 diclofenac (VOLTAREN) 1 % topical gel, Apply 4 g topically 4 times daily. (Patient not taking: Reported on 12/26/2024), Disp: , Rfl: tanbcaed-xqobxmtdb-pwgwyeimyceqglescp (POLYDEX) 3.5 mg/g-10,000 unit/g-0.1 % ointment, Apply a small amount on AFFECTED eyelid four times a day (Patient not taking: Reported on 12/26/2024), Disp: , Rfl: nicotine (NICODERM CQ) 14 mg/24 hr, Place 1 patch on the skin 1 (one) time each day. (Patient not taking: Reported on 12/26/2024), Disp: 30 each, Rfl: 0 Trintellix 5 mg tablet, Take 1 tablet (5 mg total) by mouth 1 (one) time each day. (Patient not taking: Reported on 12/26/2024), Disp: , Rfl: REVIEW OF SYSTEMS: Review of Systems - Oncology The Karnofsky performance scale today is 50, Requires considerable assistance and frequent medical care (ECOG equivalent 2). ADL: ADL Screening Patient's Vision Adequate to Safely Complete Daily Activities: Yes Patient's Judgment Adequate to Safely Complete Daily Activities: Yes Patient's Memory Adequate to Safely Complete Daily Activities: Yes Patient's concentration adequate to safely complete daily activities: Yes Patient Able to Express Needs/Desires: Yes Patient's ability to complete errands: Independent Which is your dominant hand?: Right Upper Body Dressing: Independent Lower Body Dressing: Independent Grooming: Independent Oral Care: Independent Feeding: Independent Bathing: Independent Toileting: Independent Putting on/taking off footwear: Independent In/Out Bed: Independent Walks in Home: Independent Climbing stairs: Independent Weakness of Legs: Both Weakness of Arms/Hands: None Hearing - Right Ear: Functional Hearing - Left Ear: Functional Objective PHYSICAL EXAM: Visit Vitals BP 108/58 (BP Location: Right arm, Patient Position: Sitting, BP Cuff Size: Adult) Pulse 68 Ht 1.638 m (64.5 ) Wt 76.7 kg (169 lb 3.2 oz) LMP (LMP Unknown) SpO2 97% BMI 28.59 kg/m?? OB Status Postmenopausal Smoking Status Former BSA 1.83 m?? Body mass index is 28.59 kg/m??. No data recorded Physical Exam General: Patient is sitting comfortably in her chair. She is accompanied by her . Her oxygenis in place. HEENT: Normocephalic atraumatic. Pupils are equal, sclera clear, extraocular muscles intact Pulmonary: Respiratory rate is regular and nonlabored. Lungs reveal decreased breath sounds throughout Cardiovascular: Regular rate and rhythm Abdomen: Minimally protuberant and android pattern Extremities: Without obvious edema in the upper extremities Skin: Warm and dry Neurological: Alert and oriented x 3. Gait and speech within normal limits Psych: Affect appropriate for current situation DIAGNOSTIC REPORTS REVIEWED: CT scans and PET scan DISCLAIMER: This document was created with the assistance of medical dictation software. Every effort was made to ensure that it is free from typographical errors. However, due to the nature of this software, some transcriptional inaccuracies may remain. * Alba Zapien MD - 12/26/2024 2:00 PM EDT RADIATION TREATMENT PLANNING SIMULATION ORDER Rad Onc Treatment Planning Simulation Ordered at: 12/26/24 1416 Simulation Type: 4D CT Image Fusion? Yes Type, Series, and Date of Service: pet Approximate Dose: 6,000 Approximate Fractions: 30 Is Boost / Cone down anticipated? No Concurrent Chemotherapy? Yes Planned Start Date: Standard Treatment Site: Lung Laterality: Left Treatment Technique: IMRT SBRT Treatment Goal: Curative test needed? No Has the pt received prior radiation? No Pacemaker, ICD, or any Implanted Device? No Does the pt need an carpenter mine? No Clinical Trial? No Do you anticipate the field size being >20 cm? (i.e. whole pelvis, 3 field breast): NA Is this for a new course of treatment? Yes Estimated Creatinine Clearance: 49.5 mL/min (by C-G formula based on SCr of 0.98 mg/dL). documented in this encounter Plan of Treatment Upcoming Encounters Date Type Department Care Team (Late st Contact Info) Description 01/07/2025 1:15 PM EDT Office Visit Adult Medicine [facility] [address] [place] [phone] Will Monroe MD [address] [place] [phone] 01/15/2025 1:00 PM EDT Office Visit [facility] Hematology Oncology [address] [place] [phone] Mihaela Barbour MD [address] [place] [address] 02/18/2025 11:00 AM EDT [facility] [address] [place] [phone] Jelena Hoff, CARY [address] [place] [address] 03/11/2025 11:00 AM EDT Appointment [facility] Ultrasound [address] [place] [phone] 03/26/2025 11:00 AM EDT Office Visit Vascular Surgery - [place] [address] [place] [phone] Krupa Garcia MD [address] [place] [address] Scheduled Orders Name Type Priority Associated Diagnoses Orde r Schedule Rad Onc Treatment Planning Simulation Radiation Oncology Routine Small cell carcinoma of lung, unspecified laterality, unspecified part of lung ([facility] V24, [facility] V28) Expected: 01/02/2025, Expires: 12/26/[address] Skull to Mid Thigh Subsequent Imaging Routine Small cell carcinoma of lung, unspecified laterality, unspecified part of lung ([facility] V24, [facility] V28) 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 ([facility] V24, [facility] V28) Expected: 12/27/2024, Expires: 12/26/2025 Scheduled Referrals Name Type Priority Associated Diagnoses Order Schedule Ambulatory referral to Radiation Oncology Outpatient Referral Routine Small cell carcinoma of lung, unspecified laterality, unspecified part of lung ([facility] V24, [facility] V28) Once for 1 Occurrences starting 12/26/2024 until 12/26/2024 documented as of this encounter Visit Diagnoses Diagnosis Small cell carcinoma of lung, unspecified laterality, unspecified part of lung ([facility] V24, CMS/HCC V28)- Primary 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 neomycin-polymyxi n-dexamethamethas one (POLYDEX) 3.5 mg/g-10,000 unit/g-0.1 % ointment Apply a small amount on AFFECTED eyelid four times a day 10/17/2024 added in this encounter Care Teams Clinical Nurse Leader Relationship Specialty Start Date End Date Will Monroe MD [address] [place] [id number] PCP - General Internal Medicine 07/08/24 documented as of this encounter
--- OUTSIDE RECORDS SUMMARY | 2024-12-26 15:10 | XMS_ITS | Encounter Summary ---
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 (CMS/HCC V24, CMS/HCC V28) (Primary Dx); Squamous cell carcinoma of lung, right (CMS/HCC V24, CMS/HCC V28) Social History Tobacco [...] Sign Reading Time Taken Comments Blood Pressure 152/53 12/25/2024 1:30 PM EDT Pulse 68 12/25/2024 1:30 PM EDT Temperature 36.8 ??C (98.2 ??F) 12/25/2024 1 :30 PM EDT Respiratory Rate - - Oxygen Saturation 96% 12/25/2024 1:3 0 PM EDT 2L nasal cannula Inhaled Oxygen Concentration - - Weight 76.2 kg (168 lb) 12/25/2024 1:30 PM EDT Height - - Body Mass Index 31.23 12/24/2024 1:06 PM EDT documented in this encounter Progress Notes * Mihaela Barbour MD - 12/25/2024 1:30 PM EDT ONC CANCER FOLLOW UP CHIEF COMPLAINT: Follow-up IDENTIFIER:Rita Draper is a 74 y.o. female. HPI: 74-year-old female who has more than 85-azbo-juvr smoking history, diagnosed recently with bilateral lung cancer, on the left side she has a small cell carcinoma of the lung and on the right side she found to have squamous cell carcinoma of the lung ROS: Patient has been oxygen dependent, has significant on and off shortness of breath Patient is complaining of fatigue but patient denies any significant aches and pain Basically review of system is unchanged from previous visit of 12/04/2024 Oncology History No history exists. Oncology history: Patient has 64-sbvi-uggo smoking, quit smoking in 2013 Patient went to [facility] with COPD exacerbation in the fall 2023, she had a prolonged hospitalization, during workup patient found to have suspicious bilateral pulmonary nodule Patient underwent surveillance CT scan in August 2024, showed significantly suspicious left upper lung and right lower lung nodules, patient subsequently underwent PET CT scan in last week of August 2024 that showed significant FDG avid left lung and right upper lung nodule as well as there was some FDG avid small nodule in the right lower lung Patient underwent biopsy of left lung and right upper lung nodule and found to have squamous cell carcinoma of right upper lung and small cell carcinoma of left lung Patient case was presented in our multidisciplinary lung cancer conference, on review of the scan there was a question of FDG avid right lower lung nodule, which was not biopsied, Dr. 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) CKD (chronic kidney disease) stage 3, GFR 30-59 ml/min ([facility] V24, [facility] V28) COPD with acute exacerbation ([facility] V24, [facility] V28) Depression Dermatochalasis of both upper eyelids Elevated rheumatoid factor Facial palsy GERD (gastroesophageal reflux disease) Headache Helicobacter positive gastritis Hypertension Hyperlipidemia Irritable bowel syndrome Multilevel degenerative disc disease Nuclear sclerosis of both eyes Occlusion of left carotid artery Osteopenia Positive Lyme disease serology Psoriasis Psoriatic arthritis ([facility] V24, [facility] V28) Renal calculi Seizure disorder ([facility] V24, [facility] V28) Thrombocytopenia ([facility] V24) Vitamin D deficiency Pulmonary nodule Hilar lymphadenopathy Acute respiratory failure with hypoxia and hypercapnia ([facility] V24, [facility] V28) Lung nodule Rib pain on right side Hypoxic respiratory failure ([facility] V24, [facility] V28) History of COVID-[address] in 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 Updated stable 12/01/17: No significant right internal carotid stenosis by Doppler CKD (chronic kidney disease) stage 3, GFR 30-59 ml/min ([facility] V24, [facility] V28) 03/13/2018 DX:CKD (chronic kidney disease) stage 3, GFR 30-59 ml/min ([facility]) COPD (chronic obstructive pulmonary disease) ([facility] V24, [facility] V28) 07/24/2017 DX:COPD (chronic obstructive pulmonary disease) ([facility]); COMMENT: Chronic bronchitis Depression 07/24/2017 [...] COMMENT: Right, small and nonobstructing Seizure disorder (CMS/HCC V24, CMS/HCC V28) 07/24/2017 DX:Seizure disorder (HCC); COMMENT: 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 On Dilantin Thrombocytopenia (CMS/HCC V24) 07/24/2017 DX:Thrombocytopenia ([facility]) Vitamin D deficiency 07/24/2017 DX:Vitamin D deficiency SOCIAL HISTORY: Social History Tobacco Use Smoking status: Former Smokeless tobacco: Current Substance Use Topics Alcohol use: No FAMILY HISTORY: Family History Problem Relation Name Age of Onset Coronary artery disease Mother at 32 Hypertension Father Chronic Lung Disease, depression/anxiety, glaucoma, arthritis Blindness Father Cataracts Father Glaucoma Father Arthritis Father Asthma Sister Chronic Lung Disease, RA Arthritis Sister No Known Problems Aunt No Known Problems Uncle No Known Problems Other Macular degeneration Neg Hx Strabismus Neg Hx Family Status Relation Name Status Mother Father Sister (Not Specified) Aunt (Not Specified) Uncle (Not Specified) Other (Not Specified) Neg Hx (Not Specified) No partnership data on file Current Outpatient Medications: adalimumab (Humira,CF, Pen) 40 [...] TWICE DAILY, Disp: 180 tablet, Rfl: 1 clopidogreL (PLAVIX) 75 mg tablet, TAKE ONE TABLET DAILY, Disp: 90 tablet, Rfl: 1 diazePAM (VALIUM) 10 mg tablet, Take 1 Tablet by mouth every 8 hours as needed for Anxiety., Disp: , Rfl: diclofenac (VOLTAREN) 1 % topical gel, Apply 4 g topically 4 times daily., Disp: , Rfl: docusate sodium (COLACE) 100 [...] by mouth at bedtime., Disp: , Rfl: efisfotg-znyqrlvio-jhqtjvubsdqupqiuwa (POLYDEX) 3.5 mg/g-10,000 unit/g-0.1 % ointment, Apply a small amount on AFFECTED eyelid four times a day, Disp: , Rfl: nicotine (NICODERM CQ) 14 mg/24 hr, Place 1 patch on the skin 1 (one) time each day., Disp: 30 each, Rfl: 0 ondansetron ODT (ZOFRAN-ODT) 4 mg disintegrating tablet, [...] each day., Disp: 3 each, Rfl: 3 Trintellix 5 mg tablet, Take 1 tablet (5 mg total) by mouth 1 (one) time each day., Disp: , Rfl: Allergies Allergen Reactions Aspirin Rash and Anaphylaxis Other Reaction(s): Rash/Dermatitis Penicillins Rash and Anaphylaxis Other Reaction(s): Rash/Dermatitis Azithromycin Nausea And Vomiting and Hives Per provider, upset stomach, to take with food. NOT allergic Tetracyclines Nausea And Vomiting Latex Hives Other Reaction(s): Hives/Urticaria Sulfa (Sulfonamide Antibiotics) Hives Other Reaction(s): Hives/Urticaria Tetracycline Nausea And Vomiting PHYSICAL EXAM: Visit Vitals BP (!) 152/53 (BP Location: Left arm, Patient Position: Sitting, BP Cuff Size: Adult) Pulse 68 Temp 36.8 ??C (98.2 ??F) (Temporal) Wt 76.2 kg (168 lb) LMP (LMP Unknown) SpO2 96% Comment: 2L nasal cannula BMI 31.23 kg/m?? OB Status Postmenopausal Smoking Status Former BSA 1.76 m?? ECOG 1-2 APPEARANCE: Alert and oriented x 3 in no acute distress, sitting with oxygen via nasal cannula EYES: nonicteric sclera pink conjunctiva ORAL CAVITY: No erythema or exudates NECK: Neck supple, no significant adenopathy, HEART: normal S1 and S2 LUNG: Distant breath sound bilaterally, breath sound decreased significantly on the bases LYMPH NODES: No palpable superficial adenopathy ABDOMEN: soft, nontender and no organomegaly appreciated EXTREMITIES: Trace edema of lower extremity LABS: Biopsy of right lower lung lesion consistent with squamous cell carcinoma IMPRESSION: 1. 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 Squamous cell carcinoma of lung, right (CMS/HCC V24, CMS/HCC V28) Patient is a 74-year-old female who has more than 75-bqqg-ithv smoking history, diagnosedrecently with bilateral lung cancer, patient had FDG avid bilateral lung nodule, biopsy of the leftlung and right upper lung nodule done few weeks ago showed small cell carcinoma on the left side and squamous cell carcinoma on the right side, there was also FDG avid nodule in the right lower lung. Patient case was presented in about multidisciplinary lung cancer conference, according to radiation oncologist, there is a good possibility she can have XRT to every lesion of the lung Patient will be seeing radiation oncologist tomorrow, I discussed with patient and her possibility of concurrent chemoradiation which can be started in next 2 to 3-week but if she is not a candidate for XRT then we will discuss about palliative systemic treatment PLAN: Patient will be seeing radiation oncologist tomorrow Depending on radiation oncology recommendation we will decide further therapeutic intervention Mihaela Barbour MD documented in this encounter Plan of Treatment Upcoming Encounters Date Type Department Care Team (Late st Contact Info) Description 01/07/2025 1:15 PM EDT Office Visit Adult Medicine [facility] [address] [place] [phone] Will Monroe MD [address] [place] [address] 01/15/2025 1:00 PM EDT Office Visit [facility] Hematology Oncology [address] [place] [phone] Mihaela Barbour MD [address] [place] [address] 02/18/2025 11:00 AM EDT Office Visit Pulmonolgy - [place] [address] [place] [phone] Jelena Hoff NP 175 [facility] [address] [place] [address] 03/11/2025 11:00 AM EDT Appointment [facility] Ultrasound [address] [place] [phone] 03/26/2025 11:00 AM EDT Office Visit Vascular Surgery - [place] [address] [place] [address] Krupa Garcia MD [address] [place] [address] documented as of this encounter Visit Diagnoses Diagnosis 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
--- OUTSIDE RECORDS SUMMARY | 2024-12-26 15:10 | XMS_ITS | Encounter Summary ---
Author Organization [facility] Address [address] [place] [address] Care Team Providers Care Operational Assistant Name Role Phone Will Monroe MD Primary Care Provider Encounter Details Date Type Department Care Team (Late Contact Info) Description 12/26/2024 1:25 PM EDT Hospital Encounter [facility] Radiation Oncology [address] [place] [phone] Arrived Social History Tobacco Use Types Packs/Day Years Used Date Smoking Tobacco: Former Smokeless Tobacco: Current Comments:E-Cigarettes Alcohol Use Standard Drinks/Week Comments No [...] PM EST documented as of this encounter Plan of Treatment Upcoming Encounters Date Type Department Care Team (Late Contact Info) Description 01/07/2025 1:15 PM EDT Office Visit Adult Medicine [address] [phone] Will Monroe MD [address] [place] [address] 01/15/2025 1:00 PM EDT Office Visit [facility] Hematology Oncology [address] [place] [phone] Mihaela Barbour MD [address] [place] [address] 02/18/2025 11:00 AM EDT Office Visit Pulmonolgy - [place] [address] [facility] [address] [place] [address] Jelena Hoff NP 175 [facility] [address] [place] [address] 03/11/2025 11:00 AM EDT Appointment [facility] Ultrasound [address] [place] [phone] 03/26/2025 11:00 AM EDT Office Visit Vascular Surgery - [place] [address] [place] [address] Krupa Garcia MD 300 [facility] [address] [place] [address] documented as of this encounter Visit Diagnoses Not on filedocumented in this encounter Care Teams Operational Assistant Relationship Specialty Start Date End Date Will Monore MD [address] [place] [phone] PCP - General Internal Medicine 07/08/24 documented as of this encounter
--- OUTSIDE RECORDS SUMMARY | 2024-12-26 15:10 | XMS_ITS | Encounter Summary ---
Author Organization [facility] Address [address] [place] [address] Care Team Providers Care Special Warfare Operator Name Role Phone Will Monroe MD Primary Care Provider Encounter Details Date Type Department Care Team (Late st Contact Info) Description 12/23/2024 Telephone [facility] Hematology Oncology [address] [place] [phone] Mihaela Barbour MD [address] [place] [address] Social History Tobacco Use Types Packs/Day Years [...] as of this encounter Progress Notes * Xavi Orona MA - 12/23/2024 11:[address] Barbour's phone number was given to elisabeth Pena to contact him. * Araceli Bro - 12/23/2024 9:46 AM EDT Patient's calling on behalf. They have not heard anything yet in regards to arranging radiation appointments. Seeking call back at [phone] documented in this encounter Plan of Treatment Upcoming Encounters Date Type Department Care Team (Late st Contact Info) Description 01/07/2025 1:15 PM EDT Office Visit Adult Medicine [facility] [address] [place] [phone] Will Monroe MD [address] [place] [address] 01/15/2025 1:00 PM EDT Office Visit [facility] Hematology Oncology [address] [place] [phone] Mihaela Barbour MD [address] [place] [address] 02/18/2025 11:00 AM EDT Office Visit Pulmonolgy - [place] 175 [facility] [address] [place] [phone] Jelena Hoff NP 175 [facility] [address] [place] [address] 03/11/2025 11:00 AM EDT Appointment [facility] Ultrasound [address] [place] [phone] 03/26/2025 11:00 AM EDT Office Visit Vascular Surgery - [place] 300 [facility] [address] [place] [address] Krupa Garcia MD 300 [facility] [address] [place] [address] documented as of this encounter Visit Diagnoses Not on filedocumented in this encounter Care Teams Special Warfare Operator Relationship Specialty Start Date End Date Will Monroe MD [address] [place] [address] PCP - General Internal Medicine 07/08/24 documented as of this encounter
--- OUTSIDE RECORDS SUMMARY | 2024-12-26 15:10 | XMS_ITS | Clinical Summary ---
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 endotracheal airway Indications and Patient Condition Indications for airway management: anesthesia Spontaneous Ventilation: absent Sedation level: Yes Preoxygenated: yes Soft Tissue Damage: No Dentition Unchanged: Yes Patient position: sniffing MILS maintained throughout Mask difficulty assessment: 1 - vent by mask us Keyon Gee MD ANESTHESIA ORDERABLES Final Re sult * (ABNORMAL) Basic metabolic panel (12/02/2024 3:49 PM EDT) Only the most recent of7 resultswithin the time period is included. Sodium 137 133 - 145 mmol/L LAB CHEMISTRY METHOD 12/02/2024 6:[address] [facility] Potassium 3.9 3.5 - 5.5 mmol/L LAB CHEMISTRY METHOD 12/02/2024 6:[address] [facility] Chloride 98 96 - 110 mmol/L LAB CHEMISTRY METHOD 12/02/2024 6:[address] [facility] CO2 35(H) 21 - 32 mmol/L LAB CHEMISTRY METHOD 12/02/2024 6:[address] [facility] Anion Gap 4 3 - 11 LAB CHEMISTRY METHOD 12/02/2024 6:[address] [facility] Glucose 112(H) 70 - 100 mg/dL LAB CHEMISTRY METHOD 12/02/2024 6:[address] [facility] BUN 27(H) 5 - 25 mg/dL LAB CHEMISTRY METHOD 12/02/2024 6:18 PM EDT [facility] Creatinine 0.98 0.50 - 1.10 mg/dL LAB CHEMISTRY METHOD 12/02/2024 6:18 PM EDT [facility] eGFR 60 >=60 mL/min/1. 73m2 LAB CHEMISTRY METHOD 12/02/2024 6:18 PM EDT [facility] Comment:Calculation based on the??Chronic Kidney Disease Epidemiology Collaboration (CKD-EPI) equation refit??without adjustment for race. BUN/Creatinine Ratio 27.6 LAB CHEMISTRY METHOD 12/02/2024 6:18 PM EDT [facility] Calcium 9.2 8.5 - 10.5 mg/dL LAB CHEMISTRY METHOD 12/02/2024 6:18 PM EDT [facility] Blood Venous blood specimen / Unknown Venipuncture / Unknown 12/02/2024 3:49 PM EDT 12/02/2024 3:49 PM EDT us Baljeet Franco MD LAB BLOOD ORDERABLES Final Re sult [facility] [address] [place] [address], [place] [phone] * ECG-Annotated (11/27/2024) us Provider Onbase ECG ORDERABLES Final Result * (ABNORMAL) TRANSTHORACIC ECHOCARDIOGRAM (TTE) COMPLETE (11/26/2024 11:26 AM EDT) Left Atrium Minor [place] 5.2 cm CV PACS Left Atrium Major [place] 5.2 cm CV PACS LA Area Sys [...] Volume 51 mL CV PACS MV Deceleration [place] 3.1 m/s2 CV PACS E Wave Deceleration [...] CV ECHO PROCEDURES Final Res ult * (ABNORMAL) Troponin I high sensitivity (11/26/2024 3:54 AM EDT) Only the most recent of4 resultswithin the time period is included. Pathologist [facility] High Sensitivity Troponin I 933(HH) <=54 ng/L LAB CHEMISTRY METHOD 11/26/2024 4:48 AM EDT [facility] Blood Venous blood specimen / Unknown Venipuncture / Unknown 11/26/2024 3:54 AM EDT 11/26/2024 4:09 AM EDT Narrative [facility] - 11/26/2024 4:48 AM EDT High levels of biotin in samples may falsely decrease hsTroponin values. ??Use caution when interpreting hsTroponin results in patients taking biotin who exhibit renal impairment (eGFR <60) or in patients taking more than 20 mg/day of biotin. Rosie DOWNING LAB BLOOD ORDERABLES Final R esult [facility] [address] [place] [address], * (ABNORMAL) Procalcitonin (11/26/2024 3:54 AM EDT) Only the most recent of2 resultswithin the time period is included. Procalcitonin 0.28(H) <=0.16 ng/mL LAB CHEMISTRY METHOD 11/26/2024 8:55 AM EDT [facility] Blood Venous blood specimen / Unknown Venipuncture / Unknown 11/26/2024 3:54 AM EDT 11/26/2024 4:09 AM EDT Narrative [facility] - 11/26/2024 8:55 AM EDT [...] DO LAB BLOOD ORDERABLES Final R esult [facility] [address] [place] [address], * (ABNORMAL) CBC auto differential (11/26/2024 3:54 AM EDT) Only the most recent of3 resultswithin the time period is included. WBC 7.3 4.8 - 10.8 K/mcL LAB HEMETOLOGY METHOD 11/26/2024 4:46 AM EDT [facility] RBC 4.10 3.80 - 4.80 M/mcL LAB HEMETOLOGY METHOD 11/26/2024 4:[address] [facility] Hemoglobin 13.1 11.5 - 16.0 g/dL LAB HEMETOLOGY METHOD 11/26/2024 4:[address] [facility] Hematocrit 40.0 35.0 - 47.0 % LAB HEMETOLOGY METHOD 11/26/2024 4:[address] [facility] MCV 97.8 79.0 - 98.0 FL LAB HEMETOLOGY METHOD 11/26/2024 4:[address] [facility] MCH 32.0 27.0 - 32.0 pcg LAB HEMETOLOGY METHOD 11/26/2024 4:[address] [facility] MCHC 32.8 32.0 - 37.0 g/dL LAB HEMETOLOGY METHOD 11/26/2024 4:[address] [facility] RDW 11.9 11.0 - 15.0 % LAB HEMETOLOGY METHOD 11/26/2024 4:[address] [facility] Platelets 137 130 - 400 K/mcL LAB HEMETOLOGY METHOD 11/26/2024 4:[address] [facility] MPV 10.4 7.0 - 11.0 FL LAB HEMETOLOGY METHOD 11/26/2024 4:[address] [facility] NRBC 0.0 <1.0 % LAB HEMETOLOGY METHOD 11/26/2024 4:[address] [facility] NRBC Absolute 0.00 <0.10 K/mcL LAB HEMETOLOGY METHOD 11/26/2024 4:[address] [facility] Neutrophils Relative 88.1 % LAB HEMETOLOGY METHOD 11/26/2024 4:[address] [facility] Lymphocytes Relative 8.2 % LAB HEMETOLOGY METHOD 11/26/2024 4:[address] [facility] Monocytes Relative 3.3 % LAB HEMETOLOGY METHOD 11/26/2024 4:[address] [facility] Eosinophils Relative 0.0 % LAB HEMETOLOGY METHOD 11/26/2024 4:[address] [facility] Basophils Relative 0.0 % LAB HEMETOLOGY METHOD 11/26/2024 4:[address] [facility] Immature Granulocytes Relative 0.4 % LAB HEMETOLOGY METHOD 11/26/2024 4:[address] [facility] Neutrophils Absolute 6.44 1.50 - 7.00 K/mcL LAB HEMETOLOGY METHOD 11/26/2024 4:[address] [facility] Lymphocytes Absolute 0.60(L) 1.00 - 5.00 K/mcL LAB HEMETOLOGY METHOD 11/26/2024 4:[address] [facility] Monocytes Absolute 0.24 0.20 - 1.00 K/mcL LAB HEMETOLOGY METHOD 11/26/2024 4:[address] [facility] Eosinophils Absolute 0.00 0.00 - 0.50 K/mcL LAB HEMETOLOGY METHOD 11/26/2024 4:[address] [facility] Basophils Absolute 0.00 0.00 - 0.20 K/mcL LAB HEMETOLOGY METHOD 11/26/2024 4:[address] [facility] Immature Granulocytes Absolute 0.03 0.00 - 0.03 K/mcL LAB HEMETOLOGY METHOD 11/26/2024 4:[address] [facility] Blood Venous blood specimen / Unknown Venipuncture / Unknown 11/26/2024 3:54 AM EDT 11/26/2024 4:09 AM EDT Dl Sanchez DO LAB BLOOD ORDERABLES Final R esult Performing Organization Address [facility]/ZIP Co de Phone Number [facility] [address] [place] [address], [place] [phone] * Light blue tube (11/26/2024 3:54 AM EDT) [facility] Extra Tube Hold for add-ons. 11/26/2024 6:01 AM EDT [facility] Comment:Auto resulted. Blood Venous blood specimen / Unknown Venipuncture / Unknown 11/26/2024 3:54 AM EDT 11/26/2024 4:10 AM EDT Ko Motta MD LAB BLOOD ORDERABLES Final Result Performing Organization Address [facility]/RUST de Phone Number [facility] [address] [place] [address], * Phosphorus (11/26/2024 3:54 AM EDT) Only the most recent of3 resultswithin the time period is included. Phosphorus 2.6 2.5 - 4.5 mg/dL LAB CHEMISTRY METHOD 11/26/2024 4:34 AM EDT [facility] Blood Venous blood specimen / Unknown Venipuncture / Unknown 11/26/2024 3:54 AM EDT 11/26/2024 4:09 AM EDT Dl Sanchez DO LAB BLOOD ORDERABLES Final R esult Performing Organization Address [facility]/ZIP Co de Phone Number [facility] [address] [place] [address], [place] [phone] * Magnesium (11/26/2024 3:54 AM EDT) Only the most recent of3 resultswithin the time period is included. Magnesium 2.0 1.9 - 2.6 mg/dL LAB CHEMISTRY METHOD 11/26/2024 4:34 AM EDT [facility] Blood Venous blood specimen / Unknown Venipuncture / Unknown 11/26/2024 3:54 AM EDT 11/26/2024 4:09 AM EDT Dl Sanchez LAB BLOOD ORDERABLES Final R esult [facility] [address] [place] [address], [place] [phone] * (ABNORMAL) Venous blood gas (11/26/2024 3:54 AM EDT) Only the most recent of3 resultswithin the time period is included. pH, Cameron 7.35 7.32 - 7.42 pH 11/26/2024 4:14 AM EDT [facility] pCO2, Cameron 55(H) 41 - 51 mmHg 11/26/2024 4:14 AM EDT [facility] pO2, Cameron 53(H) 25 - 40 mmHg 11/26/2024 4:14 AM EDT [facility] HCO3, Venous 27.3(H) 22.0 - 26.0 mmol/L 11/26/2024 4:14 AM EDT [facility] O2 Sat, Cameron 90.1 % 11/26/2024 4:14 AM EDT [facility] Base Excess, Cameron 3.4(H) -2.0 - 2.0 mmol/L 11/26/2024 4:14 AM EDT [facility] Blood Venous blood specimen / Unknown Venipuncture / Unknown 11/26/2024 3:54 AM EDT 11/26/2024 4:09 AM EDT Dl Sanchez LAB BLOOD ORDERABLES Final R esult [facility] [address] [place] [address], [place] [phone] * Calcium, ionized (11/26/2024 3:54 AM EDT) Only the most recent of2 resultswithin the time period is included. [facility] Calcium Ionized 4.98 4.50 - 5.30 mg/dL 11/26/2024 4:15 AM EDT [facility] Blood Venous blood specimen / Unknown Venipuncture / Unknown 11/26/2024 3:54 AM EDT 11/26/2024 4:09 AM EDT Dl Sanchez DO LAB BLOOD ORDERABLES Final R esult [facility] [address] [place] [address], [place] [phone] * (ABNORMAL) Arterial blood gas (11/25/2024 6:49 PM EDT) [facility] pH, Arterial 7.35 7.35 - 7.45 pH 11/25/2024 6:59 PM EDT [facility] pCO2, Arterial 49(H) 35 - 45 mmHg 11/25/2024 6:59 PM EDT [facility] pO2, Arterial 56(LL) 80 - 100 mmHg 11/25/2024 6:59 PM EDT [facility] HCO3, Arterial 25.2 22.0 - 26.0 mmol/L 11/25/2024 6:59 PM EDT [facility] O2 Sat, Arterial 91.9(L) 95.0 - 98.0 % 11/25/2024 6:59 PM EDT [facility] Base Excess, Arterial 0.7 -2.0 - 2.0 mmol/L 11/25/2024 6:59 PM EDT [facility] Blood Arterial blood specimen / Unknown Arterial Puncture / Unknown 11/25/2024 6:49 PM EDT 11/25/2024 6:54 PM EDT Dl Sanchez DO LAB BLOOD ORDERABLES Final R esult [facility] [address] [place] [address], [place] [phone] * ECG 12 lead (11/25/2024 6:40 PM EDT) Only the most recent of3 resultswithin the time period is included. Ventricular Rate ECG 83 BPM [facility] Atrial Rate 83 BPM [facility] P-R Interval 152 ms [facility] QRS Duration 70 ms G[facility] Q-T Interval 358 ms GEM[facility] QTc 420 ms GEMUSE P Wave [place] 26 degrees GEMUSE R [place] 12 degrees GEMUSE T [place] 64 degrees GEMUSE ECG Interpretation Normal sinus rhythm Septal infarct (cited on or before 13-NOV-2024) Abnormal ECG When compared with ECG of 25-NOV-2024 15:49, No significant change was found Confirmed by Mauro PLASENCIA YUFENG ([id number]) on 11/26/2024 8:17:19 PM [facility] 11/25/2024 6:40 PM EDT 11/26/2024 8:17 PM EDT Sheldon Anthony MD ECG ORDERABLES Final Result Performing Organization Address City/[facility]/ZIP Co de Phone Number GEM[facility] * Blood Culture, Peripheral Draw #1 (11/25/2024 5:15 PM EDT) Only the most recent of2 resultswithin the time period is included. Culture, Blood No growth at 5 days LAB MICROBIOLOGY METHOD 11/30/2024 6:01 PM EDT [facility] Blood Venous blood specimen / Unknown Venipuncture / Unknown 11/25/2024 5:15 PM EDT 11/25/2024 5:20 PM EDT Sheldon Anthony MD LAB MICROBIOLOGY - GENERAL ORDE WANDA Final Result Performing Organization Address City/[facility]/ZIP Co de Phone Number [facility] [address] [place] [address], [place] [phone] * Lactate (11/25/2024 4:37 PM EDT) [facility] Lactate 1.6 0.4 - 2.0 mmol/L LAB CHEMISTRY METHOD 11/25/2024 5:30 PM EDT [facility] Blood Venous blood specimen / Unknown Venipuncture / Unknown 11/25/2024 4:37 PM EDT 11/25/2024 4:53 PM EDT us Sheldon Anthony MD LAB BLOOD ORDERABLES Final Resu lt Performing Organization Address [facility]/ZIP Co de Phone Number [facility] [address] [place] [address], [place] [phone] * (ABNORMAL) Urinalysis with reflex microscopic (11/25/2024 4:06 PM EDT) [facility] Specific [place] Urine 1.017 1.003 - 1.030 LAB URINALYSIS - AUTOMATED METHOD 11/25/2024 5:21 PM EDT [facility] pH, Urine 6.5 5.0 - 8.0 pH LAB URINALYSIS - AUTOMATED METHOD 11/25/2024 5:[address] [facility] Leukocytes, Urine Negative Negative LAB URINALYSIS - AUTOMATED METHOD 11/25/2024 5:21 PM T [facility] Nitrite, Urine Negative Negative LAB URINALYSIS - AUTOMATED METHOD 11/25/2024 5:21 PM EDT [facility] Protein, Urine 300(A) <=Trace mg/dL LAB URINALYSIS - AUTOMATED METHOD 11/25/2024 5:21 PM T [facility] Glucose, Urine Negative Negative mg/dL LAB URINALYSIS - AUTOMATED METHOD 11/25/2024 5:[address] [facility] Ketones, Urine Negative Negative mg/dL LAB URINALYSIS - AUTOMATED METHOD 11/25/2024 5:[address] [facility] Urobilinogen , Urine 0.2 0.2 - 1.0 mg/dL LAB URINALYSIS - AUTOMATED METHOD 11/25/2024 5:[address] [facility] Bilirubin, Urine Negative Negative LAB URINALYSIS - AUTOMATED METHOD 11/25/2024 5:[address] [facility] Blood, Urine Moderate(A) Negative LAB URINALYSIS - AUTOMATED METHOD 11/25/2024 5:[address] [facility] RBC, Urine 28.5(H) 0 - 4 /HPF LAB URINALYSIS - AUTOMATED METHOD 11/25/2024 5:[address] [facility] WBC, Urine 6.2(H) 0 - 4 /HPF LAB URINALYSIS - AUTOMATED METHOD 11/25/2024 5:[address] [facility] Squamous Epithelial, Urine >100(H) 0 - 60 /LPF LAB URINALYSIS - AUTOMATED METHOD 11/25/2024 5:[address] [facility] Non-Squamous Epithelial, Urine Rare Transitional epithelial cells. /LPF 11/25/2024 5:[address] [facility] Bacteria, Urine Negative Negative /HPF LAB URINALYSIS - AUTOMATED METHOD 11/25/2024 5:[address] [facility] Hyaline Casts, Urine 2.4 0 - 3 /LPF LAB URINALYSIS - AUTOMATED METHOD 11/25/2024 5:[address] [facility] Other Casts, Urine 2-5 Fine Granular casts. /LPF 11/25/2024 5:[address] [facility] Urine Urine specimen obtained by clean catch procedure / Unknown Non-blood Collection / Unknown 11/25/2024 4:06 PM EDT 11/25/2024 4:42 PM EDT us Sheldon B Raj LARSON LAB URINE ORDERABLES Final Resu lt [facility] [address] [place] [address], [place] [phone] * Respiratory virus panel molecular study (11/25/2024 4:05 PM EDT) Pathologist [facility] Adenovirus Detection by PCR Not Detected Not Detected LAB MICROBIOLOGY METHOD 11/25/2024 5:45 PM EDT [facility] Influenza A PCR Not Detected Not Detected LAB MICROBIOLOGY METHOD 11/25/2024 5:45 PM EDT [facility] Influenza B PCR Not Detected Not Detected LAB MICROBIOLOGY METHOD 11/25/2024 5:45 PM EDT [facility] Coronavirus 229E Not Detected Not Detected LAB MICROBIOLOGY METHOD 11/25/2024 5:45 PM EDT [facility] Coronavirus HKU1 Not Detected Not Detected LAB MICROBIOLOGY METHOD 11/25/2024 5:45 PM EDT [facility] Coronavirus OC43 Not Detected Not Detected LAB MICROBIOLOGY METHOD 11/25/2024 5:45 PM EDT [facility] Coronavirus NL63 Not Detected Not Detected LAB MICROBIOLOGY METHOD 11/25/2024 5:45 PM EDT [facility] Parainfluenza Virus 1 Not Detected Not Detected LAB MICROBIOLOGY METHOD 11/25/2024 5:45 PM EDT [facility] Parainfluenza Virus 2 Not Detected Not Detected LAB MICROBIOLOGY METHOD 11/25/2024 5:45 PM EDT [facility] Parainfluenza Virus 3 Not Detected Not Detected LAB MICROBIOLOGY METHOD 11/25/2024 5:45 PM EDT [facility] Parainfluenza Virus 4 Not Detected Not Detected LAB MICROBIOLOGY METHOD 11/25/2024 5:45 PM EDT [facility] RSV PCR Not Detected Not Detected LAB MICROBIOLOGY METHOD 11/25/2024 5:45 PM EDT [facility] Human Metapneumovirus A and B Not Detected Not Detected LAB MICROBIOLOGY METHOD 11/25/2024 5:45 PM EDT [facility] Rhinovirus/Entero virus Not Detected Not Detected LAB MICROBIOLOGY METHOD 11/25/2024 5:45 PM EDT [facility] Bordetella pertussis Not Detected Not Detected LAB MICROBIOLOGY METHOD 11/25/2024 5:45 PM EDT [facility] Bordetella parapertussis Not Detected Not Detected LAB MICROBIOLOGY METHOD 11/25/2024 5:45 PM EDT [facility] Mycoplasma pneumo by PCR Not Detected Not Detected LAB MICROBIOLOGY METHOD 11/25/2024 5:45 PM EDT [facility] Chlamydia pneumoniae Not Detected Not Detected LAB MICROBIOLOGY METHOD 11/25/2024 5:45 PM EDT [facility] SARS COV-2 Not Detected Not Detected LAB MICROBIOLOGY METHOD 11/25/2024 5:45 PM EDT [facility] Swab Both anterior nares / Unknown Non-blood Collection / Unknown 11/25/2024 4:05 PM EDT 11/25/2024 4:42 PM EDT [facility] - 11/25/2024 5:45 PM EDT Testing was performed using the [employer] Respiratory Pathogen PCR Assay. All results must [...] that are below the limit of detection. us Sheldon B Raj LARSON LAB MICROBIOLOGY - [facility]IE MUÑOZ Final Result [facility] [address] [place] [address], [place] [phone] * Thyroid stimulating hormone (11/25/2024 3:41 PM EDT) [facility] TSH 0.48 0.40 - 4.00 mcIU/mL LAB CHEMISTRY METHOD 11/25/2024 6:19 PM EDT [facility] Blood Venous blood specimen / Unknown Venipuncture / Unknown 11/25/2024 3:41 PM EDT 11/25/2024 3:47 PM EDT Dl Sanchez DO LAB BLOOD ORDERABLES Final R esult Performing Organization Address [facility]/ZIP Co de Phone Number [facility] [address] [place] [address], [place] [phone] * (ABNORMAL) B-type natriuretic peptide (11/25/2024 3:41 PM EDT) [facility] BNP 109(H) <=100 pcg/mL LAB CHEMISTRY METHOD 11/25/2024 4:32 PM EDT [facility] Blood Venous blood specimen / Unknown Venipuncture / Unknown 11/25/2024 3:41 PM EDT 11/25/2024 3:47 PM EDT Sheldon Anthony MD LAB BLOOD ORDERABLES Final Resu lt Performing Organization Address [facility]/ZIP Co de Phone Number [facility] [address] [place] [address], [place] [phone] * (ABNORMAL) Hepatic function panel (11/25/2024 3:41 PM EDT) [facility] Total Protein 7.6 6.0 - 8.0 g/dL LAB CHEMISTRY METHOD 11/25/2024 4:32 PM EDT [facility] Albumin 3.6 3.2 - 5.0 g/dL LAB CHEMISTRY METHOD 11/25/2024 4:32 PM EDT [facility] Total Bilirubin 0.3 0.0 - 1.4 mg/dL LAB CHEMISTRY METHOD 11/25/2024 4:32 PM EDT [facility] Bilirubin, Direct 0.1 0.0 - 0.3 mg/dL LAB CHEMISTRY METHOD 11/25/2024 4:32 PM EDT [facility] Bilirubin, Indirect 0.2 0.0 - 1.1 mg/dL LAB CHEMISTRY METHOD 11/25/2024 4:32 PM EDT [facility] ALT (SGPT) 39 10 - 60 unit/L LAB CHEMISTRY METHOD 11/25/2024 4:32 PM EDT [facility] AST (SGOT) 60(H) 10 - 42 unit/L LAB CHEMISTRY METHOD 11/25/2024 4:32 PM EDT [facility] Comment:Hemolysis present Alkaline Phosphatase 174(H) 42 - 121 unit/L LAB CHEMISTRY METHOD 11/25/2024 4:32 PM EDT [facility] Blood Venous blood specimen / Unknown Venipuncture / Unknown 11/25/2024 3:41 PM EDT 11/25/2024 3:47 PM EDT us Sheldon Anthony MD LAB BLOOD ORDERABLES Final Resu lt [facility] [address] [place] [address], * [place] [facility] 30-74 MINUTES (11/25/2024 3:16 PM [...] auto-finalized and does not contain a result. Laura Avalos MD IMG FLUOROSCOPY PROCEDURES Final Result RIS PACS/VR * TH AN ENDOTRACHEAL(NO CHARGE) (11/20/2024 2:12 PM EDT) Narrative Herb Jenkins MD - 11/20/2024 2:12 PM EDT Nasim Foy DO ? 11/20/2024 ??2:15 PM General Information and Staff Patient location during procedure: [place] Anesthesiologist: Herb Jenkins MD Resident/FIRE CREW SPECIALIST: Nasim Foy DO Performed: resident/FIRE CREW SPECIALIST/CAA Performed by: Nasim Foy DO Authorized by: [...] difficulty assessment: 1 - vent by mask Herb Jenkins MD ANESTHESIA ORDERABLES Final Resu lt * BRAF mutation DNA sequencing analysis (11/20/2024 2:11 PM EDT) Scan Result See Scanned Result 12/10/2024 2:33 PM EDT [facility] Tissue Structure of upper lobe of right lung / Unknown 11/20/2024 2:11 PM EDT 11/27/2024 11:28 AM EDT Laura Avalos MD LAB MOLECULAR DIAGNOSTICS ORDERABLES Final Result Performing Organization Address City/[facility]/ZIP Co de Phone Number [facility] [address] [place] [address], [place] [phone] * PD-L1 lung IHC (11/20/2024 2:11 PM EDT) Scan Result See Scanned Result 12/03/2024 3:26 PM EDT [facility] Tissue Structure of upper lobe of right lung / Unknown 11/20/2024 2:11 PM EDT 11/27/2024 11:28 AM EDT us Laura Avalos MD LAB PATHOLOGY ORDERABLES F inal Result [facility] [address] [place] [address], [place] [phone] * Tissue exam (11/20/2024 2:11 PM EDT) Addendum See BRAF report from [employer] scanned below. 12/10/2024 3:03 PM EDT [facility] Addendum electronically signed by Magalys Andres MD on 12/10/2024 at 3:03 PM IHC Addendum Please see Histology Analysis PD-L1 22C3 FDA for NSCLC report from [employer] scanned below. 12/10/2024 3:03 PM EDT [facility] Addendum electronically signed by Magalys Andres MD on 12/03/2024 at 4:42 PM Final Diagnosis A. Lung, right upper lobe, [...] notified on 11/26/2024 at 3:57 PM via [employer] chat 12/10/2024 3:03 PM EDT [facility] Gross Description A. Lung, Right Upper [...] submitted entirely in cassette B1. RE 11/21/24 12/10/2024 3:03 PM EDT [facility] Disclaimer The interpretation of this case [...] components of [place] [address] CLIA # [id number] 12/10/2024 3:03 PM EDT [facility] Tissue Structure of upper lobe of right lung / Unknown 11/20/2024 2:11 PM EDT 11/21/2024 7:29 AM EDT Tissue specimen (specimen) Structure of lower lobe of left lung / Unknown 11/20/2024 2:57 PM EDT 11/21/2024 7:29 AM EDT Laura Avalos MD LAB PATHOLOGY ORDERABLES E dited Result - Final [facility] [address] [place] [address], * Non-gynecologic cytology (11/20/2024 2:09 PM EDT) Final Diagnosis A. Lung, right upper lobe, FNA (ThinPrep and cell block): Malignant cells present. 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 Refer to biopsy specimen [id number]. B. Lung, right upper lobe, brush (ThinPrep [...] small cell carcinoma. Refer to biopsy specimen [id number]. E. Lung, left lower lobe, wash (cellblock): [...] lymph node sampling. 11/26/2024 7:04 PM EDT [facility] Specimen A Adequacy Satisfactory for evaluation 11/26/2024 7:04 PM EDT [facility] Specimen B Adequacy Satisfactory for evaluation 11/26/2024 7:04 PM EDT [facility] Specimen C Adequacy Satisfactory for evaluation 11/26/2024 7:04 PM EDT [facility] Specimen D Adequacy Satisfactory for evaluation 11/26/2024 7:04 PM EDT [facility] Specimen E Adequacy Satisfactory for evaluation 11/26/2024 7:04 PM EDT [facility] Specimen F Adequacy Satisfactory for evaluation 11/26/2024 7:04 PM EDT [facility] Specimen G Adequacy Satisfactory for evaluation 11/26/2024 7:04 PM EDT [facility] Specimen H Adequacy Satisfactory for evaluation 11/26/2024 7:04 PM EDT [facility] Clinical Information IN CYTO 11/26/2024 7:04 PM EDT [facility] Gross Description A. Lung, Right Upper [...] and Cell Block. 11/26/2024 7:04 PM EDT [facility] Disclaimer The technical components of [place] [address] CLIA # [id number] 11/26/2024 7:04 PM EDT [facility] Fine Needle Aspirate Structure of upper [...] MD LAB CYTOLOGY ORDERABLES Fi nal Result [facility] [address] [place] [address], [place] [phone] * Prothrombin time with INR (11/13/2024 11:40 AM EDT) Protime 11.9 10.6 - 13.9 sec LAB COAGULATION METHOD 11/13/2024 12:29 PM EDT [facility] INR 0.9 LAB COAGULATION METHOD 11/13/2024 12:29 PM EDT [facility] Blood Venous blood specimen / Unknown Venipuncture / Unknown 11/13/2024 11:40 AM EDT 11/13/2024 12:20 PM EDT Laura Avalos MD LAB BLOOD ORDERABLES Final Result [facility] [address] [place] [address], * External clinical lab (11/12/2024) Provider [place] [...] Signed Date: 10/31/2024 15:40 ET Workstation ID: [id number] Transcribed By: Self Edit Transcribed Date: 10/31/2024 [...] Signed Date: 10/31/2024 15:40 ET Workstation ID: [id number] Transcribed By: Self Edit Transcribed Date: 10/31/2024 15:09 ET us Tunde Trejo MD IM CT PROCEDURES Final Result * MR Brain [...] Signed Date: 10/11/2024 13:31 ET Workstation ID: [id number] Transcribed By: Self Edit Transcribed Date: 10/11/2024 [...] Signed Date: 10/11/2024 13:31 ET Workstation ID: [id number] Transcribed By: Self Edit Transcribed Date: 10/11/2024 13:11 ET Tunde Trejo MD IMG MRI PROCEDURES Final Result * Lipid panel (06/08/2023) [...] (World Health Organization Fracture Risk Assessment) [facility] Department of Internal Medicine recommends using [...] alternative screening schedule based on sadiq Franco., [facility] September 08, 2011 for patients with osteopenia [...] (World Health Organization Fracture Risk Assessment) [facility] Department of Internal Medicine recommendsusing National [...] alternative screening schedule based on sadiq Franco., [place] 2011 for patients with osteopenia (based on [...] Resu lt * Hepatitis C Screening (05/13/2020) [facility] Hepatitis C Screening Abstracted Historical Provider HEALTH MAINTENANCE Final Result from Last 3 Months or Most Recently Relevant to Health Maintenance Insurance [employer] MEDICARE [place]ICA[place] Advance Directives Documents on File Type Date Recorded Patient Spare Hand Carding Expl anation Advance Directives and Living Will 11/26/2024 5:41 PM Deangelo Draper Health Care Proxy * Full Code - Default (Latest Code Status on File) Date Activated Date Inactivated Comments 12/10/2024 6:14 AM 12/10/2024 12:32 PM This is ord er is used when code status has not been discussed with the patient, or code status is otherwise unknown/unconfirmed To update the patient's code status, place a code status order. Do not modify or discontinue any currently active code status orders. * Full Code - Confirmed Date Activated Date Inactivated Comments 11/25/2024 5:51 [...] Draper Spouse Health Care Agent Care Teams Rv Repairer Relationship Specialty Start Date End Date Will Monroe MD [address] [place] [id number] PCP - General Internal Medicine 07/08/24
== END 2024-12-26 14:21 | disposition home or self-care (01) ==
LOC: HO.HOP 14:20
PROVIDERS: PCP Internal Medicine; Visit Provider Clinical Nurse Specialist Psychiatric/Mental Health
DX: F33.1 Major depressive disorder, recurrent, moderate (principal); F43.10 Post-traumatic stress disorder, unspecified; R45.89 Other symptoms and signs involving emotional state
CPT/HCPCS: 99213

== ENCOUNTER → 2024-12-26 14:20 | Outpatient (BNVA) | payer MEDICARE, SELFPAY | PROVIDERS: PCP Internal Medicine; Visit Provider Clinical Nurse Specialist Psychiatric/Mental Health | DX: F33.1 Major depressive disorder, recurrent, moderate (principal); F43.10 Post-traumatic stress disorder, unspecified; R45.89 Other symptoms and signs involving emotional state ==

== ENCOUNTER 2024-12-30 10:52 | Outpatient (AMB) | payer MEDICARE, SELFPAY ==
--- NOTE | 2024-12-30 11:12 | MHC.OFFVISPS ---
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 Industrial Required: No Allergies No Known Allergies Allergy (Verified 01/30/24 12:28) Medication List - Last Reconciled 12/30/24 by Angie Neely APRN aripiprazole (Abilify) 5 mg PO DAILY carvedilol 12.5 mg PO BID clonidine HCl 0.1 mg PO BID clopidogrel 75 mg PO DAILY diazepam 10 mg PO TID PRN furosemide 20 mg PO DAILY levofloxacin mg PO mirtazapine 22.5 mg (1.5 x 15 mg) PO DAILY neomycin-polymyxin B-dexameth 3.5mg/mL-10,000 unit/mL-0.1 % drps ophthalmic (eye) ondansetron mg PO phenytoin sodium extended 100 mg PO TID prednisone 20 mg PO BID simvastatin 20 mg PO BEDTIME tiotropium bromide (Spiriva with HandiHaler) 1 cap inhalation DAILY HPI- Psychiatric Chief Complaint: depression HPI Narrative: pt requested earleir than schedule appt due startign radiation and chemotherapy for 3 masses in lungs and neck. she is feeling less overwhelmed toda y; her mood is improved; she reports good support from [employer]; medications are helping. No SI or HI. pt discussed fears about cancer treatment and tolerating side effects; discussed supports . pt talked about missing her sister with whom she was very close and missing being able to talk with her about cancer and her fears. Past Psychiatric History: No IPLOC. anxiety started at age 3, always scared, constant worried thoughts, depression and anxiety for many years; her mother when she was 2 yo and pt had a difficult life with father and step mother intermittently being available- she and sister were frequently in foster care; pt has been in and out of treatment for years -outpatietn tx only . Subjective Subjective Subjective Medication Compliance: Yes Side effects from medications: No Review of Systems Medical Review of Systems: unchanged Mental Status Exam Mental Status Exam Patient Orientation: Person, Place, Time and Situation Level of Consciousness: Appropriate Patient Behavior: Appropriate Mood Description: Cheerful and Anxious Patient Cognition Impaired: No Ability to Follow Directions: Good Speech Pattern: Clear Memory Description: Intact Hallucinations: None Delusions: Not Present Thought Content: positive for Intact Judgement: Good Telehealth Telehealth Telehealth Platform: Telephone Location of provider rendering services: practice address Location of patient: address on file Patient Identification confirmed using: Name, : Yes Telehealth method: voice only Patient verbally consented to treatment: Yes Patient verbally consented to billing insurance company: Yes Patient informed of any privacy concerns related to visit: Yes Minutes spent on Phone/Video with Pt.: 30 Assessment and Plan Assessment & Plan (1) Anxiety about health: Status: Acute Code(s): R45.89 - Other symptoms and signs involving emotional state (2) Major depressive disorder, recurrent episode, moderate with anxious distress: Status: Acute Code(s): F33.1 - Major depressive disorder, recurrent, moderate (3) PTSD (post-traumatic stress disorder): Status: Acute Code(s): F43.10 - Post-traumatic stress disorder, unspecified Plan continue medications a sis follow up in 4 weeks Counseling and coordination of Care Pt. Self Management counseling: Maintenance-social rhythm, Sleep hygiene, Behavior activation, General coping skills and Greif counseling Medication management counseling: Effectiveness, Side effects, Dosing range, Duration, Drug interaction and Adherence Diagnosis and Prognosis Counseling: Accuracy of diagnosis, Prognosis over time, Impact of diagnosis on life functions, Impact of family relationship, Problematic behaviors secondary to diagnosis and Adequacy of current interventions Details-Diagnosis/Prognosis counseling: coping with cancer treatment Details: I spent 35 minutes reviewing the record, seeing the patient and documenting in the medical record. Counseling provided to the patient/caregiver as outlined below. Addressed patient/caregiver concerns regarding current medication regime including effective adherence. Addressed patient/caregiver concerns regarding diagnosis and prognosis including accuracy of diagnosis, prognosis over time, impact of diagnosis. Addressed patient/caregiver concerns regarding impact of recent stressors. PFSH Social History: lives with ; 2 adult daughters- estranged from one Substance History: none Trauma History: foster care as child- multiple homes Coding Level of Care Code Tele Est Pt Level 3 (84291) Tele Therapy 30m w/E&M (96108) Diagnoses Anxiety about health R45.89 Major depressive disorder, recurrent episode, moderate with anxious distress F33.1 PTSD (post-traumatic stress disorder) F43.10
--- OUTSIDE RECORDS SUMMARY | 2024-12-30 11:37 | XMS_ITS | Clinical Summary ---
Author Organization [facility] Address [address] [place] [address] Care Team Providers Care Market Reporter Name Role Phone Unknown Primary Care Provider [phone] Allergies Active Allergy Reactions Criticality Noted Date [...] patient's age to complete this topic Insurance [facility] MEDICARE Care Teams Market Reporter Relationship Specialty Start Date End Date Unknown Unknow Provider Address PCP - General 02/28/23
--- OUTSIDE RECORDS SUMMARY | 2024-12-30 11:37 | XMS_ITS ---
Author Organization [address] [facility] Address [address] [place] [address] Phone Care Team Providers Care Travel Freight And Passenger Agent Name Role Phone Will Monroe MD Primary Care Provider [phone] Active Problems Problem Noted Date Diagnosed Date Small cell carcinoma of lung , unspecified laterality, unspecified part of lung (CMS/HCC V24, CMS/HCC V28) 12/26/2024 Rib pain on right side 12/25/2024 Hypoxic respiratory failure (CMS/HCC V24, CMS/HC C V28) 12/25/2024 Cognitive impairment 12/25/2024 CAD in [place] artery 12/25/2024 Lung nodule 12/03/2024 Acute respiratory [...] Hilar lymphadenopathy 10/07/2024 Osteopenia 09/16/2021 Psoriatic arthritis (CMS/[facility] V24, CMS/HCC V28) 1 10/12/2020 Overview (06/12/2024): [...] kidney disease) stage 3, GFR 30-59 ml/min ([facility] V24, 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 Nuclear sclerosis of both eyes 11/22/2017 Anxiety 07/24/2017 Overview (06/12/2024): Followed by Angie Neley, ADELA [address], 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 V24, [facility]/ [facility] V28) 07/24/2017 Overview (06/12/2024): Chronic bronchitis [...] Seizure disorder ([facility] V24, [facility] V28) 11/2016 Overview (06/12/2024): 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 On Dilantin Thrombocytopenia ([facility] V24) 07/24/2017 Vitamin D deficiency 07/24/2017 Current Oncology Plans No current plan information found. Past Plans No past plan information found. Radiation Treatments * No radiation treatments are documented for this patient in [facility]. Treatments may have been administered in another system. Lifetime Dose Tracking * Chemical Lifetime Dose Automatic Entry Manual Entr y Fluoro Time 7.49 minutes 7.49 minutes 0 minutes Air Kerma 300.5 mGy 300.5 mGy 0 mGy CTDIvol 10.56 mGy 10.56 mGy 0 mGy
--- OUTSIDE RECORDS SUMMARY | 2024-12-30 11:37 | XMS_ITS | Encounter Summary ---
Author Organization [facility] Address [address] [place] [address] Care Team Providers Care Paste Mixer Liquid Name Role Phone Will Monroe MD Primary Care Provider [phone] Reason for Visit * Reason Onset Date Comments Procedure 12/06/2024 PAT , FOLLOW UP, AUTH Encounter Details Date Type Department Care Team (Late st Contact Info) Description 12/06/2024 Telephone Pulmonology - [address] [address] Laura Avalos MD [address] [place] [id number] Procedure (PAT , FOLLOW UP, AUTH [...] AUTh Not needed spoke with Weston Brady termite control service representative Reff [phone] [employer] No other testing needed documented in this encounter Plan of Treatment Upcoming Encounters Date Type Department Care Team (Late st Contact Info) Description 01/07/2025 1:15 PM EDT Office Visit Adult Medicine [facility] [address] [place] [address] Will Monroe MD [address] [place] [address] 01/15/2025 1:00 PM EDT Office Visit [facility] Hematology Oncology [address] [place] [phone] Mihaela Barbour MD [address] [place] [address] 02/18/2025 11:00 AM EDT Office Visit Pulmonolgy - [place] [facility] [address] [place] [phone] Jelena Hoff NP [address] [facility] [address] [place] [address] 03/11/2025 11:00 AM EDT Appointment [facility] Ultrasound [address] [place] [phone] 03/26/2025 11:00 AM EDT Office Visit Vascular Surgery - [place] [address] [facility] [address] [place] [phone] Krupa Garcia MD [address] [facility] [address] [place] [address] documented as of this encounter Visit Diagnoses Not on filedocumented in this encounter Care Teams Paste Mixer Liquid Relationship Specialty Start Date End Date Will Monroe MD [address] [place] [address] PCP - General Internal Medicine 07/08/24 documented as of this encounter
--- OUTSIDE RECORDS SUMMARY | 2024-12-30 11:38 | XMS_ITS | Clinical Summary ---
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 Culture, Peripheral Draw #1 (11/25/2024 5:15 PM EDT) Only the most recent of2 resultswithin the time period is included. Culture, Blood No growth at 5 days LAB MICROBIOLOGY METHOD 11/30/2024 6:01 PM EDT [facility] Blood Venous blood specimen / Unknown Venipuncture / Unknown 11/25/2024 5:15 PM EDT 11/25/2024 5:20 PM EDT Sheldon Anthony MD LAB MICROBIOLOGY - GENERAL ORDBrad MUÑOZ Final Result Performing Organization Address [facility]/ZIP Co de Phone Number [facility] [address] [place] [address], * Lactate (11/25/2024 4:37 PM EDT) [facility] Lactate 1.6 0.4 - 2.0 mmol/L LAB CHEMISTRY METHOD 11/25/2024 5:30 PM EDT [facility] Blood Venous blood specimen / Unknown Venipuncture / Unknown 11/25/2024 4:37 PM EDT 11/25/2024 4:53 PM EDT [facility] Raj LARSON LAB BLOOD ORDERABLES Final Resu lt Performing Organization Address [facility]/ZIP Co de Phone Number [facility] [address] [place] [address], [place] [phone] * (ABNORMAL) Urinalysis with reflex microscopic (11/25/2024 4:06 PM EDT) [facility] Specific [place] Urine 1.017 1.003 - 1.030 LAB URINALYSIS - AUTOMATED METHOD 11/25/2024 5:21 PM [facility] pH, Urine 6.5 5.0 - 8.0 pH LAB URINALYSIS - AUTOMATED METHOD 11/25/2024 5:21 PM [facility] Leukocytes, Urine Negative Negative LAB URINALYSIS - AUTOMATED METHOD 11/25/2024 5:21 PM EDT [facility] Nitrite, Urine Negative Negative LAB URINALYSIS - AUTOMATED METHOD 11/25/2024 5:21 PM EDT [facility] Protein, Urine 300(A) <=Trace mg/dL LAB URINALYSIS - AUTOMATED METHOD [facility] Glucose, Urine Negative Negative mg/dL LAB URINALYSIS - AUTOMATED METHOD 11/25[facility]2024 [facility] Ketones, Urine Negative Negative mg/dL LAB URINALYSIS - AUTOMATED METHOD 11/25/2024 5:21 PM [facility] Urobilinogen , Urine 0.2 0.2 - 1.0 mg/dL LAB URINALYSIS - AUTOMATED METHOD 11/25/2024 5:21 PM [facility] Bilirubin, Urine Negative Negative LAB URINALYSIS - AUTOMATED METHOD 11/25/2024 5:21 PM [facility] Blood, Urine Moderate(A) Negative LAB URINALYSIS - AUTOMATED METHOD 11/25/2024 5:21 PM [facility] RBC, Urine 28.5(H) 0 - 4 /HPF LAB URINALYSIS - AUTOMATED METHOD 11/25/2024 5:21 PM [facility] WBC, Urine 6.2(H) 0 - 4 /HPF LAB URINALYSIS - AUTOMATED METHOD 11/25/2024 5:21 PM [facility] Squamous Epithelial, Urine >100(H) 0 - 60 /LPF LAB URINALYSIS - AUTOMATED METHOD 11/25/2024 5:21 PM [facility] Non-Squamous Epithelial, Urine Rare Transitional epithelial cells. /LPF 11/25/2024 5:21 PM [facility] Bacteria, Urine Negative Negative /HPF LAB URINALYSIS - AUTOMATED METHOD 11/25/2024 5:21 PM [facility] Hyaline Casts, Urine 2.4 0 - 3 /LPF LAB URINALYSIS - AUTOMATED METHOD 11/25/2024 5:21 PM [facility] Other Casts, Urine 2-5 Fine Granular casts. /LPF 11/25/2024 5:21 PM [facility] Urine Urine specimen obtained by clean catch procedure / Unknown Non-blood Collection / Unknown 11/25/2024 4:06 PM EDT 11/25/2024 4:42 PM EDT us Sheldon B Raj LARSON LAB URINE ORDERABLES Final Resu lt [facility] [address] [place] [address], [place] [phone] * Respiratory virus panel molecular study (11/25/2024 4:05 PM EDT) Adenovirus Detection by PCR Not Detected Not Detected LAB MICROBIOLOGY METHOD 11/25/2024 5:45 PM EDT [facility] Influenza A PCR Not Detected Not Detected LAB MICROBIOLOGY METHOD 11/25/2024 5:45 PM EDT [facility] Influenza B PCR Not Detected Not Detected LAB MICROBIOLOGY METHOD 11/25/2024 5:45 PM EDT [facility] Coronavirus 229E Not Detected Not Detected LAB MICROBIOLOGY METHOD 11/25/2024 5:45 PM EDT [facility] Coronavirus HKU1 Not Detected Not Detected LAB MICROBIOLOGY METHOD 11/25/2024 5:45 PM EDT [facility] Coronavirus OC43 Not Detected Not Detected LAB MICROBIOLOGY METHOD 11/25/2024 5:45 PM EDT [facility] Coronavirus NL63 Not Detected Not Detected LAB MICROBIOLOGY METHOD 11/25/2024 5:45 PM EDT [facility] Parainfluenza Virus 1 Not Detected Not Detected LAB MICROBIOLOGY METHOD 11/25/2024 5:45 PM EDT [facility] Parainfluenza Virus 2 Not Detected Not Detected LAB MICROBIOLOGY METHOD 11/25/2024 5:45 PM EDT [facility] Parainfluenza Virus 3 Not Detected Not Detected LAB MICROBIOLOGY METHOD 11/25/2024 5:45 PM EDT [facility] Parainfluenza Virus 4 Not Detected Not Detected LAB MICROBIOLOGY METHOD 11/25/2024 5:45 PM EDT [facility] RSV PCR Not Detected Not Detected LAB MICROBIOLOGY METHOD 11/25/2024 5:45 PM EDT [facility] Human Metapneumovirus A and B Not Detected Not Detected LAB MICROBIOLOGY METHOD 11/25/2024 5:45 PM EDT [facility] Rhinovirus/Entero virus Not Detected Not Detected LAB MICROBIOLOGY METHOD 11/25/2024 5:45 PM EDT [facility] Bordetella pertussis Not Detected Not Detected LAB MICROBIOLOGY METHOD 11/25/2024 5:45 PM EDT [facility] Bordetella parapertussis Not Detected Not Detected LAB MICROBIOLOGY METHOD 11/25/2024 5:45 PM EDT [facility] Mycoplasma pneumo by PCR Not Detected Not Detected LAB MICROBIOLOGY METHOD 11/25/2024 5:45 PM EDT [facility] Chlamydia pneumoniae Not Detected Not Detected LAB MICROBIOLOGY METHOD 11/25/2024 5:45 PM EDT [facility] SARS COV-2 Not Detected Not Detected LAB MICROBIOLOGY METHOD 11/25/2024 5:45 PM EDT [facility] Swab Both anterior nares / Unknown Non-blood Collection / Unknown 11/25/2024 4:05 PM EDT 11/25/2024 4:42 PM EDT [facility] - 11/25/2024 5:45 PM EDT Testing was performed using the [employer]oc[employer] Respiratory Pathogen PCR Assay. All results must [...] are below the limit of detection. Sheldon B Raj LARSON LAB MICROBIOLOGY - GENERAL TIFFANIE MUÑOZ Final Result [facility] [address] [place] [address], * Thyroid stimulating hormone (11/25/2024 3:41 PM EDT) Pathologist [facility] TSH 0.48 0.40 - 4.00 mcIU/mL LAB CHEMISTRY METHOD 11/25/2024 6:19 PM EDT [facility] Blood Venous blood specimen / Unknown Venipuncture / Unknown 11/25/2024 3:41 PM EDT 11/25/2024 3:47 PM EDT Dl Sanchez DO LAB BLOOD ORDERABLES Final R esult Performing Organization Address City/[facility]/ZIP Co de Phone Number [facility] [address] [place] [address], [place] [phone] * (ABNORMAL) B-type natriuretic peptide (11/25/2024 3:41 PM EDT) Pathologist [facility] BNP 109(H) <=100 pcg/mL LAB CHEMISTRY METHOD 11/25/2024 4:32 PM EDT [facility] Blood Venous blood specimen / Unknown Venipuncture / Unknown 11/25/2024 3:41 PM EDT 11/25/2024 3:47 PM EDT Sheldon Anthony MD LAB BLOOD ORDERABLES Final Resu lt Performing Organization Address City/[facility]/ZIP Co de Phone Number [facility] [address] [place] [address], [place] [phone] * (ABNORMAL) Hepatic function panel (11/25/2024 3:41 PM EDT) Pathologist [facility] Total Protein 7.6 6.0 - 8.0 g/dL LAB CHEMISTRY METHOD 11/25/2024 4:32 PM EDT [facility] Albumin 3.6 3.2 - 5.0 g/dL LAB CHEMISTRY METHOD 11/25/2024 4:32 PM EDT [facility] Total Bilirubin 0.3 0.0 - 1.4 mg/dL LAB CHEMISTRY METHOD 11/25/2024 4:32 PM EDT [facility] Bilirubin, Direct 0.1 0.0 - 0.3 mg/dL LAB CHEMISTRY METHOD 11/25/2024 4:32 PM EDT [facility] Bilirubin, Indirect 0.2 0.0 - 1.1 mg/dL LAB CHEMISTRY METHOD 11/25/2024 4:32 PM EDT [facility] ALT (SGPT) 39 10 - 60 unit/L LAB CHEMISTRY METHOD 11/25/2024 4:32 PM EDT [facility] AST (SGOT) 60(H) 10 - 42 unit/L LAB CHEMISTRY METHOD 11/25/2024 4:32 PM EDT [facility] Comment:Hemolysis present Alkaline Phosphatase 174(H) 42 - 121 unit/L LAB CHEMISTRY METHOD 11/25/2024 4:32 PM EDT [facility] Blood Venous blood specimen / Unknown Venipuncture / Unknown 11/25/2024 3:41 PM EDT 11/25/2024 3:47 PM EDT Sheldon Anthony MD LAB BLOOD ORDERABLES Final Resu lt [facility] [address] [place] [address], * [facility] 30-74 MINUTES (11/25/2024 3:16 PM [...] during procedure: OR Anesthesiologist: Herb Jenkins MD Resident/HAND STAMPER: Nasim Foy DO Performed: resident/HAND STAMPER/CAA Performed by: Nasim Foy DO Authorized by: [...] See Scanned Result 12/10/2024 2:33 PM EDT [facility] Tissue Structure of upper lobe of right lung / Unknown 11/20/2024 2:11 PM EDT 11/27/2024 11:28 AM EDT Laura Avalos MD LAB MOLECULAR DIAGNOSTICS ORDERABLES Final Result Performing Organization Address City/[facility]/ZIP Co de Phone Number [facility] [address] [place] [address], [place] [phone] * PD-L1 lung IHC (11/20/2024 2:11 PM EDT) Scan Result See Scanned Result 12/03/2024 3:26 PM EDT [facility] Tissue Structure of upper lobe of right lung / Unknown 11/20/2024 2:11 PM EDT 11/27/2024 11:28 AM EDT us Laura Avalos MD LAB PATHOLOGY ORDERABLES F inal Result [facility] [address] [place] [address], [place] [phone] * Tissue exam (11/20/2024 2:11 PM EDT) Addendum See BRAF report from [employer] scanned below. 12/10/2024 3:03 PM EDT [facility] Addendum electronically signed by Magalys Andres MD on 12/10/2024 at 3:03 PM IHC Addendum Please see Histology Analysis PD-L1 22C3 FDA for NSCLC report from [employer] scanned below. 12/10/2024 3:03 PM EDT [facility] Addendum electronically signed by Magalys Andres [...] notified on 11/26/2024 at 3:57 PM via [employer] chat 12/10/2024 3:03 PM EDT [facility] Gross Description A. Lung, Right Upper [...] B1. RE 11/21/24 12/10/2024 3:03 PM EDT [facility] Disclaimer The interpretation of this case [...] components of this [place] [address] CLIA # [id number] 12/10/2024 3:03 PM EDT [facility] Tissue Structure of upper lobe of right lung / Unknown 11/20/2024 2:11 PM EDT 11/21/2024 7:29 AM EDT Tissue specimen (specimen) Structure of lower lobe of left lung / Unknown 11/20/2024 2:57 PM EDT 11/21/2024 7:29 AM EDT Laura Avalos MD LAB PATHOLOGY ORDERABLES E dited Result - Final [facility] [address] [place] [id number], * Non-gynecologic cytology (11/20/2024 2:09 PM EDT) Final Diagnosis A. Lung, right upper lobe, FNA (ThinPrep and cell block): Malignant cells present. 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 Refer to biopsy specimen [id number]. B. Lung, right upper lobe, brush (ThinPrep [...] small cell carcinoma. Refer to biopsy specimen [id number]. E. Lung, left lower lobe, wash (cellblock): [...] lymph node sampling. 11/26/2024 7:04 PM EDT [facility] Specimen A Adequacy Satisfactory for evaluation 11/26/2024 7:04 PM EDT [facility] Specimen B Adequacy Satisfactory for evaluation 11/26/2024 7:04 PM EDT [facility] Specimen C Adequacy Satisfactory for evaluation 11/26/2024 7:04 PM EDT [facility] Specimen D Adequacy Satisfactory for evaluation 11/26/2024 7:04 PM EDT [facility] Specimen E Adequacy Satisfactory for evaluation 11/26/2024 7:04 PM EDT [facility] Specimen F Adequacy Satisfactory for evaluation 11/26/2024 7:04 PM EDT [facility] Specimen G Adequacy Satisfactory for evaluation 11/26/2024 7:04 PM EDT [facility] Specimen H Adequacy Satisfactory for evaluation 11/26/2024 7:04 PM EDT [facility] Clinical Information IN CYTO 11/26/2024 7:04 PM EDT [facility] Gross Description A. Lung, Right Upper [...] and Cell Block. 11/26/2024 7:04 PM EDT [facility] Disclaimer The technical components of this case [place] [address] CLIA # [id number] 11/26/2024 7:04 PM EDT [facility] Fine Needle Aspirate Structure of upper [...] MD LAB CYTOLOGY ORDERABLES Fi nal Result [facility] [address] [place] [address], [place] [phone] * Prothrombin time with INR (11/13/2024 11:40 AM EDT) Protime 11.9 10.6 - 13.9 sec LAB COAGULATION METHOD 11/13/2024 12:29 PM EDT [facility] INR 0.9 LAB COAGULATION METHOD 11/13/2024 12:29 PM EDT [facility] Blood Venous blood specimen / Unknown Venipuncture / Unknown 11/13/2024 11:40 AM EDT 11/13/2024 12:20 PM EDT us Laura Avalos MD LAB BLOOD ORDERABLES Final Result [facility] [address] [place] [address], [place] [phone] * External clinical lab (11/12/2024) Provider [place] [...] Signed Date: 10/31/2024 15:40 ET Workstation ID: [id number] Transcribed By: Self Edit Transcribed Date: 10/31/2024 [...] Signed Date: 10/31/2024 15:40 ET Workstation ID: [id number] Transcribed By: Self Edit Transcribed Date: 10/31/2024 15:09 ET us Tunde Trejo MD [facility]ED[facility] Final Result * MR Brain [...] Signed Date: 10/11/2024 13:31 ET Workstation ID: [id number] Transcribed By: Self Edit Transcribed Date: 10/11/2024 [...] Signed Date: 10/11/2024 13:31 ET Workstation ID: [id number] Transcribed By: Self Edit Transcribed Date: 10/11/2024 [...] (World Health Organization Fracture Risk Assessment) [facility] Department of Internal Medicine recommends using [...] alternative screening schedule based on sadiq Franco., [facility] September 08, 2011 for patients with osteopenia [...] (World Health Organization Fracture Risk Assessment) [facility] Department of Internal Medicine recommendsusing National [...] FRAX. Optional alternative screening schedule based on sherman Franco al., [place] 2011 for patients with osteopenia (based [...] Resu lt * Hepatitis C Screening (05/13/2020) [facility] Hepatitis C Screening Abstracted Historical Provider HEALTH MAINTENANCE Final Result from Last 3 Months or Most Recently Relevant to Health Maintenance Insurance [facility] MEDICARE [place]ICAID - [place] Advance Directives Documents on File Type Date Recorded Patient Felt Checker Expl anation Advance Directives and Living Will [...] Draper Spouse Health Care Agent Care Teams Lathe Spotter Relationship Specialty Start Date End Date Will Monroe MD [address] [place] [id number] PCP - General Internal Medicine 07/08/24
--- OUTSIDE RECORDS SUMMARY | 2024-12-30 11:38 | XMS_ITS | Encounter Summary ---
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 (CMS/HCC V24, CMS/HCC V28) Procedures PET CT Skull to Mid Thigh Subsequent Alba Zapien MD [address] [place] [address] Phone: tel: fax: [facility] PET Scan [address] [place] [address] Phone: tel: Referral ID Status Reason Start Date Expiration Date V isits Requested Visits Authorized [id number] Pending Review 12/26/2024 12/26/2025 1 1 * Radiation Therapy (Routine) - Pending Review Specialty Diagnoses / Procedures Referred By Contac t Referred To Contact Radiation Oncology Diagnoses Small cell carcinoma of lung, unspecified laterality, unspecified part of lung (CMS/HCC V24, CMS/HCC V28) Procedures Rad Onc Treatment Planning Simulation Alba Zapien MD [address] [place] [address] Phone: tel: fax: Referral ID Status Reason Start Date Expiration Date V isits Requested Visits Authorized [id number] Pending Review 12/26/2024 12/26/2025 1 1 * Consultation (Urgent) - Authorized Specialty Diagnoses / Procedures Referred By Contac t Referred To Contact Radiation Oncology Diagnoses Small cell carcinoma of lung, unspecified laterality, unspecified part of lung (CMS/HCC V24, CMS/HCC V28) Mihaela Barbour MD [address] [place] [address] Phone: tel: fax: [facility] Radiation Oncology [address] [place] [phone] Phone: tel: fax: Referral ID Status Reason Start Date Expiration Date Visits Requested Visits Authorized [id number] Authorized Specialty Services Required 12/23/2024 12/23/2025 1 1 Reason for Visit * Reason Comments Consult Small cell carcinoma of lung * Consultation (Urgent) - Authorized Specialty Diagnoses / Procedures Referred By Contac t Referred To Contact Radiation Oncology Diagnoses Small cell carcinoma of lung, unspecified laterality, unspecified part of lung (CMS/HCC V24, CMS/HCC V28) Mihaela Barbour MD [address] [place] [address] Phone: tel: fax: [facility] Radiation Oncology [address] [place] [address] Phone: tel: fax: Referral ID Status Reason Start Date Expiration Date Visits Requested Visits Authorized [id number] Authorized Specialty Services Required 12/23/2024 12/23/2025 1 1 Encounter Details Date Type Department Care Team (Latest Contact Info) Description 12/26/2024 1:25 PM EDT - 12/26/2024 11:59 PM EDT Hospital Encounter [facility] Radiation Oncology [address] [place] [address] Alba Zapien MD [address] [place] [address] Small cell carcinoma of lung, unspecified laterality, unspecified part of lung ([facility] V24, [facility] V28) (Primary Dx); 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 12/22/202 1 albuterol HFA (PROAIR HFA ; PROVENTIL HFA ; VENTOLIN HFA) 90 mcg/actuation inhalerIndications: Chronic obstructive pulmonary disease, unspecified COPD type ([facility] V24, [facility] V28) Inhale 2 puffs by mouth every 4 (four) hours if needed for wheezing or shortness of breath. 36 g 5 5 12/15/19 26 ARIPiprazole (ABILIFY) 5 mg tablet Take 1 tablet (5 mg total) by mouth 1 (one) time each day. carvediloL (COREG) 12.5 mg tablet TAKE ONE TABLET TWICE DAILY 180 tablet 1 5 cloNIDine (CATAPRES) 0.1 mg tablet TAKE ONE TABLET TWICE DAILY 180 tablet 1 5 clopidogreL (PLAVIX) 75 mg tablet TAKE ONE TABLET DAILY 90 tablet 1 5 diazePAM (VALIUM) 10 mg tablet Take 1 Tablet by mouth every 8 hours as needed for Anxiety. 3 diclofenac (VOLTAREN) 1 % topical gel Apply 4 g topically 4 times daily. 4 docusate sodium (COLACE) 100 mg capsule Take 1 Cap by mouth 2 times daily for 30 days. 8 fluticasone-salmete rol (ADVAIR DISKUS) 250-50 mcg/dose diskus inhalerIndications: Pulmonary emphysema, unspecified emphysema type ([facility] V24, [facility] V28) Inhale 1 puff by mouth 2 (two) times a day. Inhale 1 Puff into the lungs 2 times daily. 3 each 3 5 mirtazapine (REMERON) 15 mg tablet Take 1.5 tablets (22.5 mg total) by mouth at bedtime. 4 neomycin-polymyxin- dexamethamethasone (POLYDEX) 3.5 mg/g-10,000 unit/g-0.1 % ointment Apply a small amount on AFFECTED eyelid four times a day 5 nicotine (NICODERM CQ) 14 mg/[address] 1 patch on the skin 1 (one) time each day. 30 each 5 ondansetron ODT (ZOFRAN-ODT) 4 mg disintegrating tablet DISSOLVE ONE TABLET IN MOUTH EVERY EIGHT HOURS NEEDED FOR NAUSEA 40 each 1 5 phenytoin (DILANTIN) 100 mg ER capsuleIndications: Seizure disorder (CMS/HCC V24, CMS/HCC V28) Take 1 capsule (100 mg total) by mouth 2 (two) times a day. 270 capsule 5 simvastatin (ZOCOR) 20 mg tablet Take 1 tablet (20 mg total) by mouth at bedtime. at bedtime. 90 tablet 1 5 tiotropium (Spiriva with HandiHaler) 18 mcg per inhalation capsuleIndications: Pulmonary emphysema, unspecified emphysema type (CMS/HCC V24, CMS/HCC V28) Place 1 capsule (18 mcg total) into inhaler and inhale 1 (one) time each day. 3 each 3 5 Trintellix 5 mg tablet Take 1 tablet (5 mg total) by mouth 1 (one) time each day. 5 albuterol 2.5 mg /3 mL (0.083 %) nebulizer solution Take 1 Vial by nebulization every 6 hours as needed for Wheezing or Shortness of Breath for up to 180 days. 1 12/28/19 25 documented as of this encounter Discharge Disposition Disposition Code Departure Means Destination Home or Self Care documented in this encounter Progress Notes * Rowena Garibay, CARY - 12/26/2024 2:00 PM EDT Oncological History: [...] small cell carcinoma. Refer to biopsy specimen [id number]. B. Lung, right upper lobe, brush (ThinPrep [...] small cell carcinoma. Refer to biopsy specimen [id number]. E. Lung, left lower lobe, wash (cellblock): [...] Zapien MD - 12/26/2024 2:00 PM EDT [address] [phone] Radiation Oncology Outpatient Consult Staff Physician: Alba [...] long-term. All of her questions were answered. Unfortunately all of her scans were at least 3 [...] small cell carcinoma. Refer to biopsy specimen [id number]. B. Lung, right upper lobe, brush (ThinPrep [...] small cell carcinoma. Refer to biopsy specimen [id number]. E. Lung, left lower lobe, wash (cellblock): [...] kidney disease) stage 3, GFR 30-59 ml/min ([facility] V24, [facility] V28) COPD with acute exacerbation ([facility] V24, [facility] V28) Depression Dermatochalasis of both upper eyelids Elevated rheumatoid factor Facial palsy GERD (gastroesophageal reflux disease) Headache Helicobacter positive gastritis Hypertension Hyperlipidemia Irritable bowel syndrome Multilevel degenerative disc disease Nuclear sclerosis of both eyes Occlusion of left carotid artery Osteopenia Positive Lyme disease serology Psoriasis Psoriatic arthritis ([facility]/HCC V24, [facility]/HCC V28) Renal calculi Seizure disorder ([facility]/HCC V24, [facility]/HCC V28) Thrombocytopenia ([facility] V24) Vitamin D deficiency Pulmonary nodule Hilar lymphadenopathy Acute respiratory failure with hypoxia and hypercapnia ([facility] V24, [facility] V28) Lung nodule Rib pain on right side Hypoxic respiratory failure ([facility] V24, [facility] V28) History of COVID-19 Cognitive impairment CAD in [place] artery PAST MEDICAL HISTORY: Past Medical History: [...] kidney disease) stage 3, GFR 30-59 ml/min ([facility] V24, [facility] V28) 03/13/2018 DX:CKD (chronic kidney disease) stage 3, GFR 30-59 ml/min ([facility]) COPD (chronic obstructive pulmonary disease) ([facility] V24, [facility] V28) 07/24/2017 DX:COPD (chronic obstructive pulmonary disease) ([facility]); COMMENT: Chronic bronchitis Depression 07/24/2017 [...] COMMENT: Right, small and nonobstructing Seizure disorder ([facility] V24, [facility] V28) 07/24/2017 DX:Seizure disorder ([facility]); COMMENT: 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 On Dilantin Thrombocytopenia ([facility] V24) 07/24/2017 DX:Thrombocytopenia ([facility]) Vitamin D deficiency 07/24/2017 DX:Vitamin D deficiency PAST SURGICAL HISTORY: Past Surgical History: Procedure Laterality Date APPENDECTOMY PROCEDURE: HISTORICAL APPENDECTOMY; COMMENT: age 10 BLEPHAROPLASTY DENTAL SURGERY wears partial bridge per pt OOPHORECTOMY Right PROCEDURE: HISTORICAL OOPHORECTOMY; COMMENT: partial OTHER SURGICAL HISTORY Left 09/2016 PROCEDURE: [place] OPTX ILIAC TUBRST AVLS/WING FX FIXJ IF PRFRMD; COMMENT: s/p pelvic repair, Dahlgren's TONSILLECTOMY PROCEDURE: HISTORICAL TONSILLECTOMY UPPER GASTROINTESTINAL ENDOSCOPY 10/03/2018 PROCEDURE: UPPER GI ENDOSCOPY/EXAM; COMMENT: mild edema UPPER GASTROINTESTINAL ENDOSCOPY 02/13/2019 PROCEDURE: UPPER GI ENDOSCOPY/EXAM; COMMENT: non specific edema, biopsy pending GYNECOLOGICAL HISTORY (if applicable): NA Head Up Operator Helper History LMP: LMP Unknown, Postmenopausal Age at Menarche: Age at First : Age at Menopause: Head Up Operator Helper History Comments: Sexual Activity: No sexual activity [...] taking: Reported on 12/26/2024), Disp: , Rfl: cimjuhwn-cclqjwopr-cxtxrihddsbaaymlvp (POLYDEX) 3.5 mg/g-10,000 unit/g-0.1 % ointment, Apply [...] Device? No Does the pt need an continuous improvement director? No Clinical Trial? No Do you anticipate [...] Office Visit Adult Medicine [facility] [address] [place] [phone] Will Monroe MD [address] [place] [address] 01/15/2025 1:00 PM EDT Office Visit [facility] Hematology Oncology [address] [place] [phone] Mihaela Barbour MD [address] [place] [address] 02/18/2025 11:00 AM EDT Office Visit Pulmonolgy - [place] [facility] [address] [place] [phone] Jelena Hoff NP 175 [facility] [address] [place] [address] 03/11/2025 11:00 AM EDT Appointment [facility] Ultrasound [address] [place] [phone] 03/26/2025 11:00 AM EDT Office Visit Vascular Surgery - [place] [address] [place] [address] Krupa Garcia MD [facility] [address] [place] [address] Scheduled Orders Name Type Priority Associated Diagnoses Orde r Schedule Rad Onc Treatment Planning Simulation Radiation Oncology Routine Small cell carcinoma of lung, unspecified laterality, unspecified part of lung ([facility] V24, [facility] V28) Expected: 01/02/2025, Expires: 12/26/[address] Skull to Mid Thigh Subsequent Imaging Routine Small cell carcinoma of lung, unspecified laterality, unspecified part of lung ([facility] V24, [facility] V28) 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 ([facility] V24, [facility] V28) Expected: 12/27/2024, Expires: 12/26/2025 Scheduled Referrals Name Type Priority Associated Diagnoses Order Schedule Ambulatory referral to Radiation Oncology Outpatient Referral Routine Small cell carcinoma of lung, unspecified laterality, unspecified part of lung ([facility] V24, [facility] V28) Once for 1 Occurrences starting 12/26/2024 until 12/26/2024 documented as of this encounter Visit Diagnoses Diagnosis Small cell carcinoma of lung, unspecified laterality, unspecified part of lung ([facility]/HCC V24, CMS/HCC V28)- Primary 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 neomycin-polymyxi n-dexamethamethas one (POLYDEX) 3.5 mg/g-10,000 unit/g-0.1 % ointment Apply a small amount on AFFECTED eyelid four times a day 10/17/2024 added in this encounter Care Teams Men'S Locker Room Attendant Relationship Specialty Start Date End Date Will Monroe MD [address] [place] [phone] PCP - General Internal Medicine 07/08/24 documented as of this encounter
--- OUTSIDE RECORDS SUMMARY | 2024-12-30 11:38 | XMS_ITS | Encounter Summary ---
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 Oncology history: Patient has 63-norw-sbvg smoking, quit smoking in 2013 Patient went to [facility] with COPD exacerbation in the fall 2023, [...] GFR 30-59 ml/min ([facility] V24, [facility] V28[facility] COPD with acute exacerbation ([facility] V24, [facility] V28) Depression Dermatochalasis of both upper eyelids Elevated rheumatoid factor Facial palsy GERD (gastroesophageal reflux disease) Headache Helicobacter positive gastritis Hypertension Hyperlipidemia Irritable bowel syndrome Multilevel degenerative disc disease Nuclear sclerosis of both eyes Occlusion of left carotid artery Osteopenia Positive Lyme disease serology Psoriasis Psoriatic arthritis ([facility] V24, [facility] V28) Renal calculi Seizure disorder ([facility] V24, [facility] V28) Thrombocytopenia ([facility] V24) Vitamin D deficiency Pulmonary nodule Hilar lymphadenopathy Acute respiratory failure with hypoxia and hypercapnia ([facility] V24, [facility] V28) Lung nodule Rib pain on right side Hypoxic respiratory failure ([facility] V24, [facility] V28) History of COVID-19 Cognitive impairment CAD in [place] artery Past Medical History: Diagnosis Date Anxiety 07/24/2017 DX:Anxiety 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 Updated stable 12/01/17: No significant right internal carotid stenosis by Doppler CKD (chronic kidney disease) stage 3, GFR 30-59 ml/min ([facility] V24, [facility] V28) 03/13/2018 DX:CKD (chronic kidney disease) stage 3, GFR 30-59 ml/min ([facility]) COPD (chronic obstructive pulmonary disease) ([facility] V24, [facility] V28) 07/24/2017 DX:COPD (chronic obstructive pulmonary disease) ([facility]); COMMENT: Chronic bronchitis Depression 07/24/2017 DX:Depression Dermatochalasis [...] On Dilantin Thrombocytopenia (CMS/HCC V24) 07/24/2017 DX:Thrombocytopenia ([facility]) Vitamin D deficiency 07/24/2017 DX:Vitamin D deficiency [...] by mouth at bedtime., Disp: , Rfl: blokcgtm-fizynraoh-rgcemvjvlrsgzmynlt (POLYDEX) 3.5 mg/g-10,000 unit/g-0.1 % ointment, Apply [...] a 74-year-old female who has more than 11-lihj-ikvc smoking history, diagnosedrecently with bilateral lung cancer, [...] EDT Office Visit Adult Medicine [facility] [address] [place] [phone] Will Monroe MD [address] [place] [address] 01/15/2025 1:00 PM EDT Office Visit [facility] Hematology Oncology [address] [place] [phone] Mihaela Barbour MD [address] [place] [address] 02/18/2025 11:00 AM EDT Office Visit Pulmonolgy - [place] [address] [place] [address] Jelena Hoff NP 175 [facility] [address] [place] [address] 03/11/2025 11:00 AM EDT Appointment [facility] Ultrasound [address] [place] [phone] 03/26/2025 11:00 AM EDT Office Visit Vascular Surgery - [place] [address] [place] [address] Krupa Garcia MD [address] [place] [address] documented as of this encounter Visit Diagnoses Diagnosis 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
--- OUTSIDE RECORDS SUMMARY | 2024-12-30 11:38 | XMS_ITS | Encounter Summary ---
Author Organization [facility] Address [address] [place] [address] Care Team Providers Care Payment Specialist Name Role Phone Will Monroe MD Primary Care Provider [phone] Encounter Details Date Type Department Care Team (Latest Contact Info) Description 12/26/2024 1:25 PM EDT - 12/26/2024 11:59 PM EDT Hospital Encounter [facility] Radiation Oncology [address] [place] [phone] Discharge Disposition: Home or Self Care Social [...] PM EST documented as of this encounter Medications at Time of Discharge adalimumab (Humira,CF, Pen) 40 mg/0.4 mL pen Inject 40 mg into the skin every 14 days for 28 days. albuterol HFA (PROAIR HFA ; PROVENTIL HFA ; VENTOLIN HFA) 90 mcg/actuation inhalerIndications: Chronic obstructive pulmonary disease, unspecified COPD type ([facility] V24, [facility] V28) Inhale 2 puffs by mouth every [...] diskus inhalerIndications: Pulmonary emphysema, unspecified emphysema type ([facility] V24, [facility] V28) Inhale 1 puff by mouth 2 [...] (DILANTIN) 100 mg ER capsuleIndications: Seizure disorder ([facility] V24, [facility] V28) Take 1 capsule (100 mg total) by mouth 2 (two) times a day. 270 capsule 5 simvastatin (ZOCOR) 20 mg tablet Take 1 tablet (20 mg total) by mouth at bedtime. at bedtime. 90 tablet 1 5 tiotropium (Spiriva with HandiHaler) 18 mcg per inhalation capsuleIndications: Pulmonary emphysema, unspecified emphysema type ([facility] V24, [facility] V28) Place 1 capsule (18 mcg total) [...] 1:15 PM EDT Office Visit Adult Medicine [facility] [address] [place] [phone] Will Monroe MD [address] [place] [address] 01/15/2025 1:00 PM EDT Office Visit [facility] Hematology Oncology [address] [place] [phone] Mihaela Barbour MD [address] [place] [address] 02/18/2025 11:00 AM EDT [facility] 175 [facility] [address] [place] [phone] Jelena Hoff NP 175 [facility] 200 [place] [address] 03/11/2025 11:00 AM EDT Appointment [facility] Ultrasound [address] [place] [address] 03/26/2025 11:00 AM EDT Office Visit Vascular Surgery - [place] [address] [place] [address] Krupa Garcia MD 300 [facility] [address] [place] [address] documented as of this encounter Visit Diagnoses Not on filedocumented in this encounter Care Teams Payment Specialist Relationship Specialty Start Date End Date Will Monroe MD [address] [place] [address] PCP - General Internal Medicine 07/08/24 documented as of this encounter
--- OUTSIDE RECORDS SUMMARY | 2024-12-30 11:38 | XMS_ITS | Encounter Summary ---
Author Organization [facility] Address [address] [place] [address] Care Team Providers Care Cna Hha Name Role Phone Will Monroe MD Primary Care Provider [phone] Encounter Details Date Type Department Care Team (Late Contact Info) Description 12/25/2024 Telephone [facility] Radiation Oncology [address] [place] [phone] Omaira Varghese [place] Social History Tobacco Use [...] 1:15 PM EDT Office Visit Adult Medicine [facility] [address] [place] [address] Will Monroe MD [address] [place] [address] 01/15/2025 1:00 PM EDT Office Visit [facility] Hematology Oncology [address] [place] [phone] Mihaela Barbour MD [address] [place] [address] 02/18/2025 11:00 AM EDT Office Visit Pulmonolgy - [place] 175 [facility] [address] [place] [phone] Jelena Hoff NP [address] [address] 03/11/2025 11:00 AM EDT Appointment [facility] Ultrasound [address] [place] [phone] 03/26/2025 11:00 AM EDT Office Visit Vascular Surgery - [place] [address] [place] [address] Krupa Garcia MD 300 [facility] [address] [place] [address] documented as of this encounter Visit Diagnoses Not on filedocumented in this encounter Care Teams Cna Hha Relationship Specialty Start Date End Date Will Monroe MD [address] [place] [phone] PCP - General Internal Medicine 07/08/24 documented as of this encounter
== END 2024-12-30 10:54 | disposition home or self-care (01) ==
LOC: HO.HOP 10:52
PROVIDERS: PCP Internal Medicine; Visit Provider Clinical Nurse Specialist Psychiatric/Mental Health
DX: F33.1 Major depressive disorder, recurrent, moderate (principal); R45.89 Other symptoms and signs involving emotional state; F43.11 Post-traumatic stress disorder, acute
CPT/HCPCS: 90833; 99213

== ENCOUNTER → 2024-12-30 10:52 | Outpatient (BNVA) | payer MEDICARE, SELFPAY | PROVIDERS: PCP Internal Medicine; Visit Provider Clinical Nurse Specialist Psychiatric/Mental Health | DX: Z13.89 Encounter for screening for other disorder (principal); F33.1 Major depressive disorder, recurrent, moderate; F43.10 Post-traumatic stress disorder, unspecified; R45.89 Other symptoms and signs involving emotional state ==

== ENCOUNTER 2025-02-03 15:30 | Outpatient (AMB) | payer MEDICARE, SELFPAY ==
--- NOTE | 2025-02-03 11:38 | MHC.OFFVISPS ---
Intake Intake Visit Reasons: depression Chief Optometry Service Required: No Allergies No Known Allergies Allergy (Verified 01/30/24 12:28) Medication List - Last Reconciled 02/03/25 by Angie Neely APRN aripiprazole (Abilify) 5 mg PO DAILY carvedilol 12.5 mg PO BID clonidine HCl 0.1 mg PO BID clopidogrel 75 mg PO DAILY diazepam 10 mg PO TID PRN furosemide 20 mg PO DAILY levofloxacin mg PO mirtazapine 22.5 mg (1.5 x 15 mg) PO DAILY neomycin-polymyxin B-dexameth 3.5mg/mL-10,000 unit/mL-0.1 % drps ophthalmic (eye) ondansetron mg PO phenytoin sodium extended 100 mg PO TID prednisone 20 mg PO BID simvastatin 20 mg PO BEDTIME tiotropium bromide (Spiriva with HandiHaler) 1 cap inhalation DAILY HPI- Psychiatric Chief Complaint: depression HPI Narrative: Pt follow up done via telehealth; pt reports increased anxiety specifically related to starting radiation treatment for lung cancer tomorrow; she will do radiation daily x 6 weeks and then chemo once a week; she is planning to try to still play cards with her social group 3 days a week. she can not go to dance group right now due to SOB and fatigue. she has good support from and one daughter. Pt is adherent with meds. she denies side effects; she denies SI or Hi; she reports gavi about treatment not working. Past Psychiatric History: No IPLOC. anxiety started at age 3, always scared, constant worried thoughts, depression and anxiety for many years; her mother when she was 2 yo and pt had a difficult life with father and step mother intermittently being available- she and sister were frequently in foster care; pt has been in and out of treatment for years -outpatietn tx only . Subjective Subjective Subjective Medication Compliance: Yes Side effects from medications: No Review of Systems Medical Review of Systems: unchanged Mental Status Exam Mental Status Exam Patient Orientation: Person, Place, Time and Situation Level of Consciousness: Awake Patient Behavior: Appropriate Mood Description: Anxious and Sad Patient Cognition Impaired: No Ability to Follow Directions: Good Speech Pattern: Clear, Appropriate and Coherent Memory Description: Intact Hallucinations: None Delusions: Not Present Thought Process: Intact and Goal Oriented Thought Content: positive for Intact and positive for Goal Oriented Judgement: Good Telehealth Telehealth Telehealth Platform: Telephone Location of provider rendering services: practice address Location of patient: address on file Patient Identification confirmed using: Name, : Yes Telehealth method: voice only Patient verbally consented to treatment: Yes Patient verbally consented to billing insurance company: Yes Patient informed of any privacy concerns related to visit: Yes Minutes spent on Phone/Video with Pt.: 15 Assessment and Plan Assessment & Plan (1) Anxiety about health: Status: Acute Code(s): R45.89 - Other symptoms and signs involving emotional state (2) Major depressive disorder, recurrent episode, moderate with anxious distress: Status: Acute Code(s): F33.1 - Major depressive disorder, recurrent, moderate (3) PTSD (post-traumatic stress disorder): Status: Acute Code(s): F43.10 - Post-traumatic stress disorder, unspecified Plan continue medications as is follow up in 2 weeks Medications: Refilled diazepam 10 mg PO TID PRN 90 tabs 2RF anxiety mirtazapine 22.5 mg (1.5 x 15 mg) PO DAILY 45 tabs 2RF aripiprazole (Abilify) 5 mg PO DAILY 90 tabs 1RF Counseling and coordination of Care Pt. Self Management counseling: Maintenance-social rhythm, Nutrition education and improvement, Sleep hygiene and General coping skills Medication management counseling: Effectiveness, Side effects and Adherence Diagnosis and Prognosis Counseling: Accuracy of diagnosis, Prognosis over time, Impact of diagnosis on life functions and Adequacy of current interventions Details: I spent 25 minutes reviewing the record, seeing the patient and documenting in the medical record. Counseling provided to the patient/caregiver as outlined below. Addressed patient/caregiver concerns regarding current medication regime including effective adherence. Addressed patient/caregiver concerns regarding diagnosis and prognosis including accuracy of diagnosis, prognosis over time, impact of diagnosis. Addressed patient/caregiver concerns regarding impact of recent stressors. PFSH Social History: lives with ; 2 adult daughters- estranged from one Substance History: none Trauma History: foster care as child- multiple homes Coding Level of Care Code Tele Est Pt Level 3 (53594) Diagnoses Anxiety about health R45.89 Major depressive disorder, recurrent episode, moderate with anxious distress F33.1 PTSD (post-traumatic stress disorder) F43.10
--- OUTSIDE RECORDS SUMMARY | 2025-02-03 17:24 | XMS_ITS | Clinical Summary ---
Author Organization [facility] Address [address] [place] [address] Care Team Providers Care Records Specialist Name Role Phone Unknown Primary Care Provider [phone] Allergies Active Allergy Reactions Criticality Noted Date [...] patient's age to complete this topic Insurance [facility] MEDICARE Care Teams Records Specialist Relationship Specialty Start Date End Date Unknown Unknow Provider Address PCP - General 02/28/23
== END 2025-02-03 15:32 | disposition home or self-care (01) ==
LOC: HO.HOP 15:30
PROVIDERS: PCP Internal Medicine; Visit Provider Clinical Nurse Specialist Psychiatric/Mental Health
DX: F33.1 Major depressive disorder, recurrent, moderate (principal); F43.11 Post-traumatic stress disorder, acute; R45.89 Other symptoms and signs involving emotional state
CPT/HCPCS: 99213

== ENCOUNTER → 2025-02-03 15:30 | Outpatient (BNVA) | payer MEDICARE, SELFPAY | PROVIDERS: PCP Internal Medicine; Visit Provider Clinical Nurse Specialist Psychiatric/Mental Health | DX: F33.1 Major depressive disorder, recurrent, moderate (principal); F43.10 Post-traumatic stress disorder, unspecified; R45.89 Other symptoms and signs involving emotional state ==

== ENCOUNTER 2025-02-18 14:22 | Outpatient (AMB) | payer MEDICARE, SELFPAY ==
--- NOTE | 2025-02-18 13:24 | MHC.OFFVISPS ---
Intake Intake Visit Reasons: depression [employer] Football[employer] Required: No Allergies No Known Allergies Allergy (Verified 01/30/24 12:28) Medication List - Last Reconciled 02/18/25 by Angie Neely APRN aripiprazole (Abilify) 5 mg PO DAILY carvedilol 12.5 mg PO BID clonidine HCl 0.1 mg PO BID clopidogrel 75 mg PO DAILY diazepam 10 mg PO TID PRN furosemide 20 mg PO DAILY levofloxacin mg PO mirtazapine 22.5 mg (1.5 x 15 mg) PO DAILY neomycin-polymyxin B-dexameth 3.5mg/mL-10,000 unit/mL-0.1 % drps ophthalmic (eye) ondansetron mg PO phenytoin sodium extended 100 mg PO TID prednisone 20 mg PO BID simvastatin 20 mg PO BEDTIME tiotropium bromide (Spiriva with HandiHaler) 1 cap inhalation DAILY HPI- Psychiatric Chief Complaint: depression HPI Narrative: Pt follow up done via telehealth; pt reports I'm good. Pt tolerating radiation and chemotherapy very well, she says the only side effect is feeling tired; her mood is good; she reports less anxiety. she is still playing cards with her social group 3 days a week. she is getting good support from friends and family. Pt is adherent with meds. she denies side effects; she denies SI or Hi; she reports less fear about treatment not working. Past Psychiatric History: No IPLOC. anxiety started at age 3, always scared, constant worried thoughts, depression and anxiety for many years; her mother when she was 2 yo and pt had a difficult life with father and step mother intermittently being available- she and sister were frequently in foster care; pt has been in and out of treatment for years -outpatietn tx only . Subjective Subjective Subjective Medication Compliance: Yes Side effects from medications: No Review of Systems Medical Review of Systems: unchanged Mental Status Exam Mental Status Exam Patient Orientation: Person, Place, Time and Situation Level of Consciousness: Awake Patient Behavior: Appropriate Mood Description: Anxious and Sad Patient Cognition Impaired: No Ability to Follow Directions: Good Speech Pattern: Clear, Appropriate and Coherent Memory Description: Intact Hallucinations: None Delusions: Not Present Thought Process: Intact and Goal Oriented Thought Content: positive for Intact and positive for Goal Oriented Judgement: Good Telehealth Telehealth Telehealth Platform: Telephone Location of provider rendering services: practice address Location of patient: address on file Patient Identification confirmed using: Name, : Yes Telehealth method: voice only Patient verbally consented to treatment: Yes Patient verbally consented to billing insurance company: Yes Patient informed of any privacy concerns related to visit: Yes Minutes spent on Phone/Video with Pt.: 25 Assessment and Plan Assessment & Plan (1) Anxiety about health: Status: Acute Code(s): R45.89 - Other symptoms and signs involving emotional state (2) Major depressive disorder, recurrent episode, moderate with anxious distress: Status: Acute Code(s): F33.1 - Major depressive disorder, recurrent, moderate (3) PTSD (post-traumatic stress disorder): Status: Acute Code(s): F43.10 - Post-traumatic stress disorder, unspecified Plan continue medications as is follow up in 4 weeks Counseling and coordination of Care Pt. Self Management counseling: Maintenance-social rhythm, Nutrition education and improvement, Sleep hygiene and General coping skills Medication management counseling: Effectiveness, Side effects and Adherence Diagnosis and Prognosis Counseling: Accuracy of diagnosis, Prognosis over time, Impact of diagnosis on life functions and Adequacy of current interventions Details: I spent 35 minutes reviewing the record, seeing the patient and documenting in the medical record. Counseling provided to the patient/caregiver as outlined below. Addressed patient/caregiver concerns regarding current medication regime including effective adherence. Addressed patient/caregiver concerns regarding diagnosis and prognosis including accuracy of diagnosis, prognosis over time, impact of diagnosis. Addressed patient/caregiver concerns regarding impact of recent stressors. PFSH Social History: lives with ; 2 adult daughters- estranged from one Substance History: none Trauma History: foster care as child- multiple homes Coding Level of Care Code Tele Est Pt Level 4 (03043) Diagnoses Anxiety about health R45.89 Major depressive disorder, recurrent episode, moderate with anxious distress F33.1 PTSD (post-traumatic stress disorder) F43.10
--- OUTSIDE RECORDS SUMMARY | 2025-02-18 15:32 | XMS_ITS ---
Author Organization [facility] Address [address] [place] [address] Phone Care Team Providers Care Kitchen Lead Name Role Phone Will Monroe MD Primary Care Provider [phone] Active Problems Problem Noted Date Diagnosed Date fall02/06/2025 Small cell carcinoma of lung , unspecified laterality, unspecified part of lung ([facility] V24, [facility] V28) 12/26/2024 Cancer Staging:Clinical stage from 01/16/2025:Stage IA2(cT1b, cN0, cM0) - Signed by Alba Zapien MD on 01/16/2025 Rib pain on right side 12/25/2024 Hypoxic respiratory failure ([facility] V24, [facility]/ C V28) 12/25/2024 Cognitive impairment 12/25/2024 CAD in [place] artery 12/25/2024 Lung nodule 12/03/2024 Acute respiratory failure wi th hypoxia and hypercapnia ([facility] V24, CMS/HCC V28) 11/25/2024 Pulmonary nodule 10/07/2024 [...] Hilar lymphadenopathy 10/07/2024 Osteopenia 09/16/2021 Psoriatic arthritis ([facility] V24, [facility] V28) 1 10/12/2020 Overview (06/12/2024): Humira [...] kidney disease) stage 3, GFR 30-59 ml/min ([facility] V24, [facility] V28) 03/13/2018 Hyperlipidemia 03/13/2018 Multilevel degenerative [...] Neely APRN 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 Headache 07/24/2017 Overview (06/12/2024): Intractable chronic post-traumatic h/a. Hypertension 07/24/2017 Occlusion of left carotid artery 07/24/2017 Overview (06/12/2024): MRA 04/24/14, MRA neck 01/12/2016: Occlusion of L ICA. Updated stable 12/01/17: No significant right internal carotid stenosis by Doppler Seizure disorder ([facility] V24, [facility] V28) 11/2016 Overview (06/12/2024): 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 On Dilantin Thrombocytopenia ([facility] V24) 07/24/2017 Vitamin D deficiency 07/24/2017 Current Oncology Plans PACLitaxel / CARBOplatin with Concurrent Radiation* Plan Start Date:01/27/2025 Plan Provider:Mihaela Barbour MD Linked Problems Small cell carcinoma of lung , unspecified laterality, unspecified part of lung ([facility] V24, [facility] V28) Treatment Medications Current Day (Day 1 5, Cycle 1 - Planned for 02/13/2025) Next Day (Day 22, Cycle 1 - Planned for 02/20/2025) CARBOplatin (PARAPLATIN)CARBOplatin (PARAPLATIN) chemo 250 mL IVPB (by AUC)PACLitaxel (TAXOL) chemo IVPB NS 250 mL (1 hours) CARBOplatin (PARAPLATIN) 165 mg in sodium chloride 266.5 mL chemo IVPBPACLitaxel (TAXOL) 90 mg in sodium chloride (non-PVC) 265 mL chemo IVPB CARBOplatin (PARAPLATIN) 170 mg in sodium chloride 267 mL chemo IVPBPACLitaxel (TAXOL) chemo IVPB Past Plans Oncology Treatment Plan Name Start Date Discontinue Date Treatment Medications Discontinue Reason Plan Provider Cycles PACLitaxel / CARBOplatin - Non-Small Cell Lung Cancer / Thymomas and Thymic Carcinomas 5 01/16/2025 CARBOplatin (PARAPLATIN)PA CLitaxel (TAXOL) Change in Level of Care Mihaela Barbour MD Treatment not started Radiation Treatments * Treatment Site Started On Last Treated On Elapsed Days Fractions Complete Last Fraction Dose Given/Prescribed Total Dose Given/Prescribed Technique Left lung 5 02/18/2025 14 11 of 30 200 cGy / 200 cGy 2,200 cGy / 6,000 cGy 2 arc VMAT Lifetime Dose Tracking * Chemical Lifetime Dose Automatic Entry Manual Entr y Fluoro Time 7.49 minutes 7.49 minutes 0 minutes Air Kerma 300.5 mGy 300.5 mGy 0 mGy CTDIvol 10.56 mGy 10.56 mGy 0 mGy
--- OUTSIDE RECORDS SUMMARY | 2025-02-18 15:32 | XMS_ITS | Clinical Summary ---
Author Organization [facility] Address [address] [place] [address] Care Team Providers Care Fishing Lure Assembler Name Role Phone Unknown Primary Care Provider [phone] Allergies Active Allergy Reactions Criticality Noted Date [...] 63 02/28/2023 3:39 PM EDT Temperature 37.2 C (99 F) 02/28/2023 2:46 PM EDT Respiratory Rate - [...] patient's age to complete this topic Insurance [facility] MEDICARE Care Teams Fishing Lure Assembler Relationship Specialty Start Date End Date Unknown Unknow Provider Address PCP - General 02/28/23
--- OUTSIDE RECORDS SUMMARY | 2025-02-18 15:32 | XMS_ITS ---
Author Name [facility] Organization Unknown Results Test Name/Text Value Interpretation Date Range Source Ref Lab Test Results See Scanned Result Normal 12/10/2024 [facility] Ref Lab Test Results See Scanned Result Normal 12/03/2024 [facility] Clinical Information IN CY[facility] Normal 11/26/2024 [facility] Citation Ref Lab Test The technical components of this [place] [address] CLIA # [id number] Normal 11/26/2024 [facility] History of Medication Use Medication Directions Dispensed Refills Start Date End Date Stat carvediloL (COREG) 12.5 mg tablet TAKE ONE TABLET TWICE DAILY 11/28/2024 active cloNIDine (CATAPRES) 0.1 mg tablet TAKE ONE TABLET TWICE DAILY 11/28/2024 active nicotine (NICODERM CQ) 14 mg/[address] 1 patch on the skin 1 (one) time each day. 11/27/2024 active furosemide (LASIX) 20 mg tablet Take 1 tablet (20 mg total) by mouth 1 (one) time each day. 11/26/2024 aborted albuterol 2.5 mg /3 mL (0.083 %) nebulizer solution 2.5 mg 2.5 mg, nebulization, Once as needed, wheezing, Starting on Mon11/20/24 at 1613, For 1 dose, Recovery (only) 11/20/2024 active diphenhydrAMINE (BENADRYL) injection 25 mg 25 mg, intravenous, Every 15 min PRN, itching, Starting on Mon11/20/24 at 1613, Recovery (only) 11/20/2024 active HYDROmorphone (DILAUDID) injection 0.5 mg 0.5 mg, intravenous, Every 5 min PRN, severe pain or when therapies for moderate pain were not effective, Starting on Mon11/20/24 at 1613, For 5 doses, Recovery (only) 11/20/2024 active lactated Ringer's infusion 100 mL/hr, intravenous, Continuous, Starting on Mon11/20/24 at 1630, Recovery (only) 11/20/2024 active meperidine (PF) (DEMEROL) 25 mg/mL injection 12.5 mg 12.5 mg, intravenous, Every 15 min PRN, rigors, shivering, Starting on Mon11/20/24 at 1613, For 4 doses, Recovery (only) 11/20/2024 active ondansetron ODT (ZOFRAN-ODT) disintegrating tablet 4 mg [Order 1 Start] Name: ondansetron ODT (ZOFRAN-ODT) disintegrating tablet 4 mg Signed Summary: 4 mg, oral, Every 8 hours PRN, vomiting, nausea, Starting on Mon11/20/24 at 1613, Recovery (only), -Give IV if patient is unable to take orally. -If inadequate response within 30 minutes, proceed to next-hammad 11/20/2024 active oxyCODONE (ROXICODONE) immediate release tablet 5 mg 5 mg, oral, Every 4 hours PRN, moderate pain or when therapies for mild pain were not effective, Starting on Mon11/20/24 at 1613, For 2 doses, Recovery (only) 11/20/2024 active sodium chloride 0.9 % flush 10 mL [Order 1 Start] Name: Insert peripheral IV Signed Summary: STAT, Once, On Mon11/20/24 at 1229, For 1 occurrence, Preprocedure [Order 1 End] [Order 2 Start] Name: Maintain IV access Signed Summary: Until discontinued, Starting on Mon11/20/24 at 1229, Until Specified, Preprocedure [Order 2 End] [Order 3 11/20/2024 active phenytoin (DILANTIN) 100 mg ER capsule Take 1 capsule (100 mg total) by mouth 2 (two) times a day. 09/24/2024 active fluticasone propionate (FLONASE) 50 mcg/actuation nasal spray Administer 2 sprays into each nostril 1 (one) time each day. Shake gently. Before first use, prime pump. After use, clean tip and replace cap. 09/24/2024 active fluticasone-salmetero l (ADVAIR DISKUS) 250-50 mcg/dose diskus inhaler Inhale 1 puff by mouth 2 (two) times a day. Inhale 1 Puff into the lungs 2 times daily. 09/24/2024 active sodium chloride-aloe vera (Saline Nasal, aloe vera,) gel topical gel Apply 1 Application to affected nostril(s) if needed (nasal dryness). 09/24/2024 active tiotropium (Spiriva with HandiHaler) 18 mcg per inhalation capsule Place 1 capsule (18 mcg total) into inhaler and inhale 1 (one) time each day. 09/24/2024 active simvastatin (ZOCOR) 20 mg tablet Take 1 tablet (20 mg total) by mouth at bedtime. at bedtime. 09/11/2024 active clopidogreL (PLAVIX) 75 mg tablet TAKE ONE TABLET DAILY 09/10/2024 active Trintellix 5 mg tablet Take 1 tablet (5 mg total) by mouth 1 (one) time each day. 08/23/2024 active diclofenac (VOLTAREN) 1 % topical gel Apply 4 g topically 4 times daily. 06/11/2024 active carvediloL (COREG) 12.5 mg tablet Take 1 Tablet by mouth 2 times daily. 06/04/2024 active cloNIDine (CATAPRES) 0.1 mg tablet Take 1 Tablet by mouth 2 times daily. 06/04/2024 active cycloSPORINE (Restasis MultiDose) 0.05 % drops PLACE ONE DROP IN EACH EYE TWICE DAILY 02/14/2024 active mirtazapine (REMERON) 15 mg tablet Take 1.5 tablets (22.5 mg total) by mouth at bedtime. 01/30/2024 active ondansetron ODT (ZOFRAN-ODT) 4 mg disintegrating tablet Take 1 Tablet by mouth every 8 hours as needed for Nausea. 12/08/2023 active Spiriva HandiHaler 18 MCG inhalation capsule USE 1 CAPSULE FOR INHALATION ONCE A DAY DO NOT SWALLOW CAPSULE 01/24/2023 active simvastatin (ZOCOR) 20 MG tablet Take 20 mg by mouth nightly. 01/02/2023 active cloNIDine (CATAPRES) 0.1 MG tablet Take 0.1 mg by mouth 2 (two) times a day. 12/21/2022 active diazePAM (VALIUM) 10 mg tablet Take 1 Tablet by mouth every 8 hours as needed for Anxiety. 12/15/2022 active albuterol HFA (PROAIR HFA ; PROVENTIL HFA ; VENTOLIN HFA) 90 mcg/actuation inhaler Inhale 2 Puffs into the lungs every 4 hours as needed for Cough or Wheezing. 11/29/2022 active adalimumab (Humira,CF, Pen) 40 mg/0.4 mL pen Inject 40 mg into the skin every 14 days for 28 days. 08/11/2021 active albuterol 2.5 mg /3 mL (0.083 %) nebulizer solution Take 1 Vial by nebulization every 6 hours as needed for Wheezing or Shortness of Breath for up to 180 days. 10/12/2020 active docusate sodium (COLACE) 100 mg capsule Take 1 Cap by mouth 2 times daily for 30 days. 04/09/2018 active ARIPiprazole (ABILIFY) 2 mg tablet Take 2.5 tablets (5 mg total) by mouth 1 (one) time each day. active ARIPiprazole (ABILIFY) 5 mg tablet Take 1 tablet (5 mg total) by mouth 1 (one) time each day. active Problems Problem Status Onset Date Problem Type Date of Resoluti on Source History of COVID-19 active 2021-08-11 ProblemAct [facility] Acute respiratory failure with hypoxia and hypercapnia ([facility] V24, [facility] V28) active 2024-11-25 ProblemAct [facility] Seizure disorder ([facility] V24, [facility] V28) active 2017-07-24 ProblemAct [facility] Vitamin D deficiency active 2017-07-24 ProblemAct [facility] Psoriasis active 2020-07-08 ProblemAct [facility] Thrombocytopenia ([facility] V24) active 2017-07-24 ProblemAct [facility] Small cell carcinoma of lung, unspecified laterality, unspecified part of lung ([facility] V24, [facility] V28) active 2024-12-26 ProblemAct [facility] Hypertension active 2017-07-24 ProblemAct [facility] Depression active 2017-07-24 ProblemAct [facility] Hyperlipidemia active 2018-03-13 ProblemAct [facility] Occlusion of left carotid artery active 2017-07-24 ProblemAct [facility] Anxiety active 2017-07-24 ProblemAct [facility] Hilar lymphadenopathy active 2024-10-07 ProblemAct [facility] Psoriatic arthritis ([facility] V24, [facility] V28) active 2021-08-11 ProblemAct [facility] Headache active 2017-07-24 ProblemAct [facility] Cognitive impairment active 2024-12-25 ProblemAct [facility] Hypoxic respiratory failure ([facility] V24, [facility] V28) active 2024-12-25 ProblemAct [facility] Nuclear sclerosis of both eyes active 2017-11-22 ProblemAct [facility] COPD with acute exacerbation ([facility] V24, [facility] V28) active 2017-07-24 ProblemAct [facility] Irritable bowel syndrome active 2018-03-08 ProblemAct [facility] Positive Lyme disease serology active 2020-06-18 ProblemAct [facility] Rib pain on right side active 2024-12-25 ProblemAct [facility] Multilevel degenerative disc disease active 2018-03-13 ProblemAct [facility] Lung nodule active 2024-12-03 ProblemAct [facility] Renal calculi active 2018-03-13 ProblemAct [facility] CAD in [place] artery active 2024-12-25 ProblemAct [facility] GERD (gastroesophageal reflux disease) active 2019-04-10 ProblemAct [facility] 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) active 2017-07-24 ProblemAct [facility] Facial palsy active 2017-07-24 ProblemAct [facility] Osteopenia active 2021-09-16 ProblemAct [facility] CKD (chronic kidney disease) stage 3, GFR 30-59 ml/min ([facility] V24, [facility] V28) active 2018-03-13 ProblemAct [facility] Helicobacter positive gastritis active 2018-10-23 ProblemAct [facility] Dermatochalasis of both upper eyelids active 2017-11-22 ProblemAct [facility] COPD with acute exacerbation active 2023-02-28 ProblemAct [facility] Immunizations Vaccine Date Source Lot Number Status Influenza trivalent, 0.5mL ( Fluad) 65yo and older 06/08/2023 [facility] [id number] completed Influenza trivalent, 0.5mL ( Fluad) 65yo and older 05/17/2022 [facility] CARL[facility] [id number] completed Influenza trivalent, 0.5mL ( Fluad) 65yo and older 06/15/2021 [facility] [id number] completed Influenza, Unspecified 06/04/2021 [facility] CARL[facility] co mpleted Pfizer SARS-CoV-2 COVID-19, mRNA, LNP-S, preservative free 12/25/2020 [facility] CARL[facility] completed Influenza trivalent, 0.5mL ( Fluad) 65yo and older 05/23/2020 [facility] CARL[facility] completed Influenza trivalent, with pr eservative (Fluzone; Afluria) 6mo and older 05/23/2020 [facility] [id number] completed Pneumococcal polysaccharide 23 valent (Pneumovax 23) 2yo and older 08/28/2019 [facility] [id number] com pleted Influenza trivalent, 0.5mL ( Fluad) 65yo and older 07/23/2019 [facility] [id number] completed Influenza Quadravalent, MDCK , 0.5ml, preservative free (Flucelvax) 6mo and older 07/24/2018 [facility] [id number] completed Pneumococcal conjugate 13 va lent (Prevnar 13, PCV13) 2mo and older 08/25/2017 [facility] [id number] complet ed Td Tetanus diptheria (Tdvax) 7yo and older 01/03/2016 [facility] [id number] completed Encounters Encounter Type Encounter Reason Primary Diagnosis Location Date Ambulatory Pain, unspecified Pain, unspecified [facility] 11/20/2024 Ambulatory Chronic obstruct bro pulmonary disease with (acute) exacerbation [facility] 02/28/2023 Care Team Organization Name Specialty Phone Email Start Date End [place] te [facility] [place]/[facility]20[facility]/2024 [facility] 02/28/2023 02/28/2023 [facility] 02/28/2023
== END 2025-02-18 14:24 | disposition home or self-care (01) ==
LOC: HO.HOP 14:22
PROVIDERS: PCP Internal Medicine; Visit Provider Clinical Nurse Specialist Psychiatric/Mental Health
DX: F33.1 Major depressive disorder, recurrent, moderate (principal); F43.11 Post-traumatic stress disorder, acute; R45.89 Other symptoms and signs involving emotional state
CPT/HCPCS: 99214

== ENCOUNTER 2025-03-18 12:03 | Outpatient (AMB) | payer MEDICARE, SELFPAY ==
--- NOTE | 2025-03-18 11:34 | A.OFFPSYCH_ITS ---
Intake Intake Visit Reasons: depression [employer] Machine Required: No Allergies No Known Allergies Allergy (Verified 01/30/24 12:28) Medication List - Last Reconciled 03/18/25 by Angie Neely APRN aripiprazole (Abilify) 5 mg PO DAILY carvedilol 12.5 mg PO BID clonidine HCl 0.1 mg PO BID clopidogrel 75 mg PO DAILY diazepam 10 mg PO TID PRN furosemide 20 mg PO DAILY levofloxacin mg PO mirtazapine 22.5 mg (1.5 x 15 mg) PO DAILY neomycin-polymyxin B-dexameth 3.5mg/mL-10,000 unit/mL-0.1 % drps ophthalmic (eye) ondansetron mg PO phenytoin sodium extended 100 mg PO TID prednisone 20 mg PO BID simvastatin 20 mg PO BEDTIME tiotropium bromide (Spiriva with HandiHaler) 1 cap inhalation DAILY HPI- Psychiatric Chief Complaint: depression HPI Narrative: Pt follow up done via telehealth; pt reports I'm good. Pt tolerated radiation and chemotherapy very well, she says the she had her last radiation treatment today. She had her last chemotherapy last week. She has her CT scan follow up next month. Her mood is good; she reports less anxiety. She is still playing cards with her social group 3 days a week. She is getting good support from friends and family. Pt is adherent with meds. she denies side effects; she denies SI or HI. Past Psychiatric History: No IPLOC. anxiety started at age 3, always scared, constant worried thoughts, depression and anxiety for many years; her mother when she was 2 yo and pt had a difficult life with father and step mother intermittently being available- she and sister were frequently in foster care; pt has been in and out of treatment for years -outpatietn tx only . Subjective Subjective Subjective Medication Compliance: Yes Side effects from medications: No Review of Systems Medical Review of Systems: unchanged Mental Status Exam Mental Status Exam Patient Orientation: Person, Place, Time and Situation Level of Consciousness: Awake Patient Behavior: Appropriate Mood Description: Anxious and Sad Patient Cognition Impaired: No Ability to Follow Directions: Good Speech Pattern: Clear, Appropriate and Coherent Memory Description: Intact Hallucinations: None Delusions: Not Present Thought Process: Intact and Goal Oriented Thought Content: positive for Intact and positive for Goal Oriented Judgement: Good Telehealth Telehealth Telehealth Platform: Telephone Location of provider rendering services: practice address Location of patient: address on file Patient Identification confirmed using: Name, : Yes Telehealth method: voice only Patient verbally consented to treatment: Yes Patient verbally consented to billing insurance company: Yes Patient informed of any privacy concerns related to visit: Yes Minutes spent on Phone/Video with Pt.: 25 Assessment and Plan Assessment & Plan (1) Anxiety about health: Status: Acute Code(s): R45.89 - Other symptoms and signs involving emotional state (2) Major depressive disorder, recurrent episode, moderate with anxious distress: Status: Acute Code(s): F33.1 - Major depressive disorder, recurrent, moderate (3) PTSD (post-traumatic stress disorder): Status: Acute Code(s): F43.10 - Post-traumatic stress disorder, unspecified Plan continue medications as is follow up in 4 weeks Medications: Refilled aripiprazole (Abilify) 5 mg PO DAILY 90 tabs 1RF mirtazapine 22.5 mg (1.5 x 15 mg) PO DAILY 45 tabs 2RF diazepam 10 mg PO TID PRN 90 tabs 2RF anxiety Counseling and coordination of Care Pt. Self Management counseling: Maintenance-social rhythm, Nutrition education and improvement, Sleep hygiene and General coping skills Medication management counseling: Effectiveness, Side effects and Adherence Diagnosis and Prognosis Counseling: Accuracy of diagnosis, Prognosis over time, Impact of diagnosis on life functions and Adequacy of current interventions Details: I spent 30 minutes reviewing the record, seeing the patient and documenting in the medical record. Counseling provided to the patient/caregiver as outlined below. Addressed patient/caregiver concerns regarding current medication regime including effective adherence. Addressed patient/caregiver concerns regarding diagnosis and prognosis including accuracy of diagnosis, prognosis over time, impact of diagnosis. Addressed patient/caregiver concerns regarding impact of recent stressors. PFSH Social History: lives with ; 2 adult daughters- estranged from one Substance History: none Trauma History: foster care as child- multiple homes Coding Level of Care Code Tele Est Pt Level 4 (08352) Diagnoses Anxiety about health R45.89 Major depressive disorder, recurrent episode, moderate with anxious distress F33.1 PTSD (post-traumatic stress disorder) F43.10
--- OUTSIDE RECORDS SUMMARY | 2025-03-18 12:59 | XMS_ITS | Clinical Summary ---
Author Organization [facility] Address [address] [place] [address] Care Team Providers Care [employer] Name Role Phone Unknown Primary Care Provider [phone] Allergies Active Allergy Reactions Criticality Noted Date [...] patient's age to complete this topic Insurance [facility] MEDICARE Care Teams [employer] Relationship Specialty Start Date End Date Unknown Unknow Provider Address PCP - General 02/28/23
== END 2025-03-18 12:04 | disposition home or self-care (01) ==
LOC: HO.HOP 12:03
PROVIDERS: PCP Internal Medicine; Visit Provider Clinical Nurse Specialist Psychiatric/Mental Health
DX: F33.1 Major depressive disorder, recurrent, moderate (principal); F43.11 Post-traumatic stress disorder, acute; R45.89 Other symptoms and signs involving emotional state
CPT/HCPCS: 99214

== ENCOUNTER 2025-04-17 11:45 | Outpatient (AMB) | payer MEDICARE, SELFPAY ==
--- OUTSIDE RECORDS SUMMARY | 2025-04-15 11:00 | XMS_ITS | Encounter Summary ---
Author Organization [facility] Address [address] [place] [address] Care Team Providers Care Slasher Name Role Phone Will Monroe MD Primary Care Provider [phone] Reason for Visit * Reason Comments Follow-up Encounter Details Date Type Department Care Team (Late st Contact Info) Description 04/15/2025 11:00 AM EDT Office Visit [facility] Hematology Oncology [address] [place] [phone] Mihaela Barbour MD [address] [place] [address] Small cell carcinoma of left lung, unspecified part of lung (CMS/HCC V24, CMS/HCC V28) (Primary Dx); Squamous cell carcinoma of upper lobe of [...] Sign Reading Time Taken Comments Blood Pressure 141/70 04/15/2025 11:20 AM EDT Pulse 65 04/15/2025 11:20 AM EDT Temperature 36.3 C (97.4 F) 04/15/2025 11:20 AM EDT Respiratory Rate - - Oxygen Saturation 94% 04/15/2025 11: 20 AM EDT 2L nasal cannula Inhaled Oxygen Concentration - - Weight 74.4 kg (164 lb) 04/15/2025 11:2 0 AM EDT Height - - Body Mass Index 28.15 03/26/2025 11:00 AM EDT documented in this encounter Progress Notes * Mihaela Barbour MD - 04/15/2025 11:00 AM EDT ONC CANCER FOLLOW UP CHIEF COMPLAINT: Follow-up IDENTIFIER:Rita Draper is a 74 y.o. female. 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 This is the current list ofradiation treatment: Radiation Therapy: Lung Treatment Period Technique Fraction Dose Fractions Total Dose Course 1 02/04/2025-03/18/2025 (days elapsed: 42) Left lung 02/04/2025-03/18/2025 2 arc VMAT 200 / 200 cGy 6000 / 6,000 cGy 01/16/2025 Cancer Staged Staging form: Lung, AJCC V9 - Clinical stage from 01/16/2025: Stage IA2 (cT1b, cN0, cM0) - Signed by Alba Zapien MD on 01/16/2025 01/28/2025 - 01/28/2025 Chemotherapy PACLitaxel (TAXOL) 366 mg in sodium chloride (non-PVC) 561 mL chemo IVPB, 200 mg/m2 = 360 mg, intravenous, Once, 0 of 6 cycles fosaprepitant (EMEND) 150 mg in sodium chloride 0.9 % 100 mL IVPB, 150 mg, intravenous, Once, 0 of 6 cycles palonosetron (ALOXI) injection 250 mcg, 250 mcg, intravenous, Once, 0 of 6 cycles CARBOplatin (PARAPLATIN) 455 mg in sodium chloride 295.5 mL chemo IVPB, , intravenous, Once, 0 of 6cycles 02/05/2025 - Chemotherapy PACLitaxel (TAXOL) 90 mg in sodium chloride (non-PVC) 115 mL chemo IVPB, 50 mg/m2 = 90 mg, intravenous, Once, 2 of 2 cycles Administration: 90 mg (02/05/2025), 90 mg (02/12/2025), 90 mg (02/19/2025), 90 mg (03/05/2025), 90 mg (02/26/2025), 90 mg (03/12/2025) palonosetron (ALOXI) injection 250 mcg, 250 mcg, intravenous, Once, 2 of 2 cycles Administration: 250 mcg (02/05/2025), 250 mcg (02/12/2025), 250 mcg (02/19/2025), 250 mcg (03/05/2025), 250 mcg (02/26/2025), 250 mcg (03/12/2025) CARBOplatin (PARAPLATIN) 155 mg in sodium chloride 265.5 mL chemo IVPB, 175 mg, intravenous, Once, 2 of 2 cycles Administration: 155 mg (02/05/2025), 160 mg (02/12/2025), 170 mg (02/19/2025), 155 mg (03/05/2025), 160 mg (02/26/2025), 165 mg (03/12/2025) Cancer Staging Small cell lung cancer, left lower lobe (CMS/[facility] V24, [facility] V28) Staging form: Lung, AJCC V9 - Clinical stage from 01/16/2025: Stage IA2 (cT1b, cN0, cM0) - Signed by Alba Zapien MD on 01/16/2025 Oncology history: Patient has [id number] smoking, quit smoking in 2013 Patient went to [facility] with COPD exacerbation in the fall [...] pathology results consistent with squamous cell carcinoma Patient was seen by radiation oncologist, Dr. 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) CKD (chronic kidney disease) stage 3, GFR 30-59 ml/min ([facility] V24, [facility] V28) COPD with acute exacerbation ([facility] V24, CMS/[facility] V28) Depression Dermatochalasis of both upper eyelids Elevated rheumatoid factor Facial palsy GERD (gastroesophageal reflux disease) Headache Helicobacter positive gastritis Hypertension Hyperlipidemia Irritable bowel syndrome Multilevel degenerative disc disease Nuclear sclerosis of both eyes Occlusion of left carotid artery Osteopenia Positive Lyme disease serology Psoriasis Psoriatic arthritis (CMS/HCC V24, CMS/HCC V28) Renal calculi Seizure disorder ([facility] V24, [facility] V28) Thrombocytopenia ([facility] V24) Vitamin D deficiency Pulmonary nodule Hilar lymphadenopathy Acute respiratory failure with hypoxia and hypercapnia ([facility] V24, [facility] V28) Lung nodule Rib pain on right side Exercise hypoxemia History of COVID-19 Cognitive impairment 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 Small cell lung cancer, left lower lobe ([facility] V24, [facility] V28) Fall Pulmonary emphysema ([facility] V24, [facility] V28) Former heavy cigarette smoker (20-39 per day) 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 ([facility] V24, [facility] V28) Past Medical History: Diagnosis Date Anxiety 07/24/2017 [...] 30-59 ml/min ([facility] V24, [facility] V28) 03/13/2018 DX:CKD (chronic kidney disease) stage 3, GFR 30-59 ml/min ([facility]) COPD (chronic obstructive pulmonary disease) ([facility] V24, [facility] V28) 07/24/2017 DX:COPD (chronic obstructive pulmonary disease) ([facility]); COMMENT: Chronic bronchitis Depression 07/24/2017 DX:Depression Dermatochalasis [...] (CMS/HCC V24, CMS/HCC V28) 07/24/2017 DX:Seizure disorder ([facility]); COMMENT: 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 On Dilantin Thrombocytopenia (CMS/HCC V24) 07/24/2017 DX:Thrombocytopenia ([facility]) Vitamin D deficiency 07/24/2017 DX:Vitamin D deficiency SOCIAL HISTORY: Social History Tobacco Use Smoking status: Former Smokeless tobacco: Current Tobacco comments: E-Cigarettes Substance Use Topics Alcohol use: No FAMILY HISTORY: Noncontributory Current Outpatient Medications: adalimumab (Humira,CF, Pen) 40 mg/0.4 mL pen, Inject 40 mg into the skin every 14 days for 28 days., Disp: , Rfl: albuterol 2.5 mg /3 mL (0.083 %) nebulizer solution, Take 3 mL (2.5 mg total) by nebulization every4 (four) hours if needed for wheezing., Disp: 75 mL, Rfl: 11 albuterol HFA (PROAIR HFA ; PROVENTIL HFA [...] Rfl: 1 clopidogreL (PLAVIX) 75 mg tablet, Take 1 tablet (75 mg total) by mouth 1 (one) time each day., Disp: 90 tablet, Rfl: 1 dexAMETHasone (DECADRON) 4 mg tablet, Take 8 mg (2 tablets) once daily, starting the day after treatment, for two days. Take in the morning with food., Disp: 30 tablet, Rfl: 1 diazePAM (VALIUM) 10 mg [...] times daily., Disp: 3 each, Rfl: 3 mirtazapine (REMERON) 15 mg tablet, Take 1.5 [...] a day., Disp: 270 capsule, Rfl: 0 prochlorperazine (COMPAZINE) 10 mg tablet, Take 1 tablet (10 mg total) by mouth every 6 (six) hoursif needed for nausea or vomiting., Disp: 60 tablet, Rfl: 3 simvastatin (ZOCOR) 20 mg tablet, Take 1 tablet (20 mg total) by mouth at bedtime., Disp: 90 tablet, Rfl: 1 tiotropium (Spiriva with HandiHaler) 18 mcg per inhalation capsule, Place 1 capsule (18 mcg total) into inhaler and inhale 1 (one) time each day., Disp: 3 each, Rfl: 3 traMADoL (ULTRAM) 50 mg tablet, Take 1 tablet (50 mg total) by mouth at bedtime as needed for moderate pain. Max Daily Amount: 50 mg, Disp: 7 tablet, Rfl: 0 furosemide (LASIX) 20 mg tablet, Take 1 tablet (20 mg total) by mouth 1 (one) time each day., Disp:30 each, Rfl: 0 Allergies Allergen Reactions Aspirin Rash and Anaphylaxis Other Reaction(s): Rash/Dermatitis Penicillins Rash and Anaphylaxis Other Reaction(s): Rash/Dermatitis Azithromycin Nausea And Vomiting and Hives Per provider, upset stomach, to take with food. NOT allergic Tetracyclines Nausea And Vomiting Latex Hives Other Reaction(s): Hives/Urticaria Sulfa (Sulfonamide Antibiotics) Hives Other Reaction(s): Hives/Urticaria Tetracycline Nausea And Vomiting PHYSICAL EXAM: Visit Vitals BP (!) 141/70 (BP Location: Left arm, Patient Position: Sitting, BP Cuff Size: Adult) Pulse 65 Temp 36.3 ??C (97.4 ??F) (Temporal) Wt 74.4 kg (164 lb) LMP (LMP Unknown) SpO2 94% Comment: 2L nasal cannula BMI 28.15 kg/m?? OB Status Postmenopausal Smoking Status Former BSA 1.8 m?? ECOG 1-2 APPEARANCE: Alert and oriented in no acute distress EYES: nonicteric sclera pink conjunctiva ORAL CAVITY: No erythema or exudates NECK: Neck supple, no significant adenopathy, HEART: normal S1 and S2 LUNG: Distant breath sound bilaterally with decreased breath sounds at bases bilaterally LYMPH NODES: No palpable superficial adenopathy ABDOMEN: soft, nontender and no organomegaly appreciated EXTREMITIES: No edema erythema or tenderness IMPRESSION: 1. Small cell carcinoma of left lung, unspecified part of lung (CMS/HCC V24, CMS/HCC V28) 2. 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 (CMS/HCC V24, CMS/HCC V28) 74-year-old female who has more than 01-[id number]-xjlp smoking history diagnosed with small cell carcinoma of left lung in early stages, cell carcinoma of right lung, please see oncology historyfor detail, patient finished concurrent chemoradiation few weeks ago Patient will be having posttherapy scan, ordered by radiation oncologist, I discussed with patient and her in detail about checkpoint inhibitor in adjuvant setting, explained potentially starting her on durvalumab in adjuvant setting for 1 year, explained potential risk-benefit in detail PLAN: I will see her back in 3 to 4 weeks discuss about adjuvant checkpoint/immunotherapy Patient scheduled to have CT contrast by radiation oncologist this week Mihaela Barbour MD documented in this encounter Plan of Treatment Upcoming Encounters Date Type Department Care Team (Late st Contact Info) Description 04/29/2025 3:00 PM EDT Appointment [facility] Radiation Oncology [address] [place] [phone] Alba Zapien MD [address] [place] [address] 05/13/2025 10:45 AM EDT Office Visit [facility] Hematology Oncology [address] [place] [phone] Mihaela Barbour MD [address] [place] [address] 07/16/2025 11:00 AM EST Office Visit Adult Medicine [facility] [address] [place] [phone] Will Monroe MD [address] [place] [phone] 08/20/2025 11:00 AM EST Office Visit Pulmonolgy - [place] [facility] [address] [place] [phone] Jelena Hoff NP [address] [place] [address] 03/03/2026 11:00 AM EDT Appointment [facility] Ultrasound [address] [place] [address] 04/01/2026 11:30 AM EDT Office Visit Vascular Surgery - [place] [address] [facility] [address] [place] [address] Krupa Garcia MD [address] [place] [address] documented as of this encounter Visit Diagnoses Diagnosis Small cell carcinoma of left lung, unspecified part of lung (CMS/HCC V24, CMS/HCC V28)- Primary 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
--- OUTSIDE RECORDS SUMMARY | 2025-04-15 12:42 | XMS_ITS | Encounter Summary ---
Author Organization [facility] Address [address] [place] [address] Care Team Providers Care Senior Ssis Developer Name Role Phone iWll Monroe MD Primary Care Provider [phone] Reason for Referral * Imaging (Routine) - Authorized Specialty Diagnoses / Procedures Referred By Contac t Referred To Contact Radiology Diagnoses Small cell lung cancer, left lower lobe (CMS/HCC V24, CMS/HCC V28) Procedures CT Chest w Contrast Alba Zapien MD [address] [place] [address] Phone: tel: fax: [facility] CT Scan [address] [place] [address] Phone: tel: Referral ID Status Reason Start Date Expiration Date V isits Requested Visits Authorized [id number] Authorized 03/14/2025 03/14/2026 1 1 Reason for Visit * Imaging (Routine) - Authorized Specialty Diagnoses / Procedures Referred By Contac t Referred To Contact Radiology Diagnoses Small cell lung cancer, left lower lobe (CMS/HCC V24, CMS/HCC V28) Procedures CT Chest w Contrast Alba Zapien MD [address] [place] [address] Phone: tel: fax: [facility] CT Scan [address] [place] [address] Phone: tel: Referral ID Status Reason Start Date Expiration Date V isits Requested Visits Authorized [id number] Authorized 03/14/2025 03/14/2026 1 1 Encounter Details Date Type Department Care Team (Latest Contact Info) Description 04/15/2025 12:42 PM EDT - 04/15/2025 11:59 PM EDT Hospital Encounter [facility] CT Scan [address] [place] [address] Small cell lung cancer, left lower lobe ([facility] V24, [facility] V28) Discharge Disposition: Home or Self Care [...] if needed for wheezing. 75 mL 11 5 06/25/20 25 albuterol HFA (PROAIR HFA ; PROVENTIL HFA ; VENTOLIN HFA) 90 mcg/actuation inhalerIndications: Chronic obstructive pulmonary disease, unspecified COPD type ([facility] V24, [facility] V28) Inhale 2 puffs by mouth every [...] 1 5 clopidogreL (PLAVIX) 75 mg tablet Take 1 tablet (75 mg total) by mouth 1 (one) time each day. 90 tablet 1 5 dexAMETHasone (DECADRON) 4 mg tabletIndications:S mall cell carcinoma of lung, unspecified laterality, unspecified part of lung (CMS/HCC V24, CMS/[facility] V28) Take 8 mg (2 tablets) once daily, starting the day after treatment, for two days. Take in the morning with food. 30 tablet 1 5 diazePAM (VALIUM) 10 mg tablet Take 1 Tablet by mouth every 8 hours as needed for Anxiety. 3 docusate sodium (COLACE) 100 mg capsule Take 1 Cap by mouth 2 times daily for 30 days. 8 fluticasone-salmete rol (ADVAIR DISKUS) 250-50 mcg/dose diskus inhalerIndications: Pulmonary emphysema, unspecified emphysema type ([facility] V24, [facility] V28) Inhale 1 puff by mouth 2 (two) times a day. Inhale 1 Puff into the lungs 2 times daily. 3 each 3 5 mirtazapine (REMERON) 15 mg tablet Take 1.5 tablets (22.5 mg total) by mouth at bedtime. 4 ondansetron ODT (ZOFRAN-ODT) 4 mg disintegrating tablet DISSOLVE ONE TABLET IN MOUTH EVERY EIGHT HOURS NEEDED FOR NAUSEA 40 each 1 5 phenytoin (DILANTIN) 100 mg ER capsuleIndications: Seizure disorder (CMS/[facility] V24, [facility] V28) Take 1 capsule (100 mg total) by mouth 2 (two) times a day. 270 capsule 5 prochlorperazine (COMPAZINE) 10 mg tabletIndications:S mall cell carcinoma of lung, unspecified laterality, unspecified part of lung (CMS/HCC V24, CMS/HCC V28) Take 1 tablet (10 mg total) by mouth every 6 (six) hours if needed for nausea or vomiting. 60 tablet 3 5 simvastatin (ZOCOR) 20 mg tablet Take 1 tablet (20 mg total) by mouth at bedtime. 90 tablet 1 5 tiotropium (Spiriva with HandiHaler) 18 mcg per inhalation capsuleIndications: Pulmonary emphysema, unspecified emphysema type (CMS/HCC V24, CMS/HCC V28) Place 1 capsule (18 mcg total) into inhaler and inhale 1 (one) time each day. 3 each 3 5 traMADoL (ULTRAM) 50 mg tablet Take 1 tablet (50 mg total) by mouth at bedtime as needed for moderate pain. Max Daily Amount: 50 mg 7 tablet 5 documented as of this encounter Discharge Disposition Disposition Code Departure Means Destination Home or Self Care documented in this encounter Plan of Treatment Upcoming Encounters Date Type Department Care Team (Late st Contact Info) Description 04/29/2025 3:00 PM EDT Appointment [facility] Radiation Oncology [address] [place] [phone] Alba Zapien MD [address] [place] [phone] 05/13/2025 10:45 AM EDT Office Visit [facility] Hematology Oncology [address] [place] [phone] Mihaela Barbour MD [address] [place] [phone] 07/16/2025 11:00 AM EST Office Visit Adult Medicine [facility] [address] [place] [phone] Will Monroe MD [address] [place] [phone] 08/20/2025 11:00 AM EST [facility] [address] [place] [address] Jelena Rodriguez NP [address] [place] [address] 03/03/2026 11:00 AM EDT Appointment [facility] Ultrasound [address] [place] [phone] 04/01/2026 11:30 AM EDT Office Visit Vascular Surgery - [place] [address] [place] [phone] Krupa Garcia MD [address] [place] [address] Pending Results Name Type Priority Associated Diagnoses Date /Time CT Chest w Contrast Imaging Routine Small cell lung cancer, left lower lobe ([facility]/HCC V24, CMS/HCC V28) 04/15/2025 1:10 PM EDT Scheduled Orders Name Type Priority Associated Diagnoses Orde r Schedule CT Chest w Contrast Imaging Routine Small cell lung cancer, left lower lobe (CMS/HCC V24, CMS/HCC V28) Once for 1 Occurrences starting 04/15/2025 until 04/15/2025 documented as of this encounter Visit Diagnoses Diagnosis Small cell lung cancer, left lower lobe (CMS/HCC V24, CMS/HCC V28) documented in this encounter Administered Medications Inactive Administered Medications - up to 3 most recent administrations Medication Order MAR Action Action Date Dose Rate Site iopamidoL (ISOVUE-370) 370 mg iodine /mL (76 %) injection 90 mL 90 mL, intravenous, Once in imaging, Starting on Mon04/15/25 at 1244, For 1 dose Given 04/15/2025 12:47 PM EDT 90 mL sodium chloride 0.9 % flush 10 mL 10 mL, intravenous, Once, On Mon04/15/25 at 1300, For 1 dose Given 04/15/2025 12:47 PM EDT 10 mL documented in this encounter Care Teams Senior Ssis Developer Relationship Specialty Start Date End Date Will Monroe MD [address] [place] [phone] PCP - General Internal Medicine 07/08/24 documented as of this encounter
--- NOTE | 2025-04-17 10:34 | MHC.OFFVISPS ---
Intake Intake Visit Reasons: depression Pressure Vessel Inspector Required: No Allergies No Known Allergies Allergy (Verified 01/30/24 12:28) Medication List - Last Reconciled 04/17/25 by Angie Neely APRN aripiprazole (Abilify) 5 mg PO DAILY carvedilol 12.5 mg PO BID clonidine HCl 0.1 mg PO BID clopidogrel 75 mg PO DAILY diazepam 10 mg PO TID PRN furosemide 20 mg PO DAILY levofloxacin mg PO mirtazapine 22.5 mg (1.5 x 15 mg) PO DAILY neomycin-polymyxin B-dexameth 3.5mg/mL-10,000 unit/mL-0.1 % drps ophthalmic (eye) ondansetron mg PO phenytoin sodium extended 100 mg PO TID prednisone 20 mg PO BID simvastatin 20 mg PO BEDTIME tiotropium bromide (Spiriva with HandiHaler) 1 cap inhalation DAILY HPI- Psychiatric Chief Complaint: depression HPI Narrative: Pt follow up done via telehealth; pt reports she is not doing well- she is much more anxious and depressed; she wakes in am very scared. she is tearful. she is more depressed. she is losing her hair. She had a MRI but results pending. Pt will be starting immunotherapy. She is still playing cards with her social group 3 days a week. She is getting good support from friends and family. Pt is adherent with meds. she denies side effects; she denies SI or HI. Past Psychiatric History: No IPLOC. anxiety started at age 3, always scared, constant worried thoughts, depression and anxiety for many years; her mother when she was 2 yo and pt had a difficult life with father and step mother intermittently being available- she and sister were frequently in foster care; pt has been in and out of treatment for years -outpatietn tx only . Subjective Subjective Subjective Medication Compliance: Yes Side effects from medications: No Review of Systems Medical Review of Systems: unchanged Mental Status Exam Mental Status Exam Patient Orientation: Person, Place, Time and Situation Level of Consciousness: Awake Patient Behavior: Appropriate Mood Description: Anxious and Sad Patient Cognition Impaired: No Ability to Follow Directions: Good Speech Pattern: Clear, Appropriate and Coherent Memory Description: Intact Hallucinations: None Delusions: Not Present Thought Process: Intact and Goal Oriented Thought Content: positive for Intact and positive for Goal Oriented Judgement: Good Telehealth Telehealth Telehealth Platform: Telephone Location of provider rendering services: practice address Location of patient: address on file Patient Identification confirmed using: Name, : Yes Telehealth method: voice only Patient verbally consented to treatment: Yes Patient verbally consented to billing insurance company: Yes Patient informed of any privacy concerns related to visit: Yes Minutes spent on Phone/Video with Pt.: 25 Assessment and Plan Assessment & Plan (1) Anxiety about health: Status: Acute Code(s): R45.89 - Other symptoms and signs involving emotional state (2) Major depressive disorder, recurrent episode, moderate with anxious distress: Status: Acute Code(s): F33.1 - Major depressive disorder, recurrent, moderate (3) PTSD (post-traumatic stress disorder): Status: Acute Code(s): F43.10 - Post-traumatic stress disorder, unspecified Plan increase abilify to 7.5mg daily increase remeron 30mg at bedtime follow up in 2 weeks Medications: New aripiprazole 7.5 mg (1/2 x 15 mg) PO DAILY 45 tabs 1RF 90 days mirtazapine 30 mg PO BEDTIME 90 tabs 1RF Refilled diazepam 10 mg PO TID PRN 90 tabs 2RF anxiety Counseling and coordination of Care Pt. Self Management counseling: Maintenance-social rhythm, Nutrition education and improvement, Sleep hygiene and General coping skills Medication management counseling: Effectiveness, Side effects and Adherence Diagnosis and Prognosis Counseling: Accuracy of diagnosis, Prognosis over time, Impact of diagnosis on life functions and Adequacy of current interventions Details: I spent 30 minutes reviewing the record, seeing the patient and documenting in the medical record. Counseling provided to the patient/caregiver as outlined below. Addressed patient/caregiver concerns regarding current medication regime including effective adherence. Addressed patient/caregiver concerns regarding diagnosis and prognosis including accuracy of diagnosis, prognosis over time, impact of diagnosis. Addressed patient/caregiver concerns regarding impact of recent stressors. PFSH Social History: lives with ; 2 adult daughters- estranged from one Substance History: none Trauma History: foster care as child- multiple homes Coding Level of Care Code Tele Est Pt Level 4 (11370) Diagnoses Anxiety about health R45.89 Major depressive disorder, recurrent episode, moderate with anxious distress F33.1 PTSD (post-traumatic stress disorder) F43.10
--- OUTSIDE RECORDS SUMMARY | 2025-04-17 12:55 | XMS_ITS | Clinical Summary ---
Author Organization [facility] Address [address] [place] [address] Care Team Providers Care Aboriginal Liaison Officer Name Role Phone Unknown Primary Care Provider [phone] Allergies Active Allergy Reactions Criticality Noted Date [...] Health Maintenance Due Date Last Done Comments Advance Care Planning 1950 Hepatitis C Virus Screening 1950 DTaP/Tdap/Td Vaccines (1 - Tdap) 1967 Pneumococcal Vaccines 50+ (1 of 2 - PCV) 1967 Zoster (Shingles) Vaccine (1 of 2) 1998 DXA Bone Density (Females,Ag es 65 and older) 2013 RSV Vaccine 60 years and old er and Patients (1 - 1-dose 75+ series) 2023 COVID-19 Vaccine (1 - 2023-2 5 season) 2024 Influenza Vaccine 03/21/2025 Hepatitis B Vaccines Aged Out No long er eligible based on patient's age to complete this topic Insurance [facility] MEDICARE Care Teams Aboriginal Liaison Officer Relationship Specialty Start Date End Date Unknown Unknow Provider Address PCP - General 02/28/23
--- OUTSIDE RECORDS SUMMARY | 2025-04-17 12:55 | XMS_ITS | Encounter Summary ---
Author Organization [facility] Address [address] [place] [address] Care Team Providers Care [employer] Energy Systems Installer Name Role Phone Will Monroe MD Primary Care Provider [phone] Reason for Visit * Reason Comments home health POC Encounter Details Date Type Department Care Team (Late Contact Info) Description 02/14/2025 Billing Patient Not Present [address] [phone] Will Monroe MD [address] [place] [phone] Social History Tobacco Use Types Packs/Day Years [...] Department Care Team (Late Contact Info) Description 04/29/2025 3:00 PM EDT Appointment [facility] Radiation Oncology [address] [place] [phone] Alba Zapien MD [address] [place] [address] 05/13/2025 10:45 AM EDT Office Visit [facility] Hematology Oncology [address] [place] [phone] Mihaela Barbour MD [address] [place] [address] 07/16/2025 11:00 AM EST Office Visit Adult Medicine [facility] [address] [place] [phone] Will Monroe MD [address] [place] [address] 08/20/2025 11:00 AM EST Office Visit Pulmonolgy - [place] 175 [facility] [address] [place] [phone] Jelena Hoff NP [address] [place] [address] 03/03/2026 11:00 AM EDT Appointment [facility] Ultrasound [address] [place] [address] 04/01/2026 11:30 AM EDT Office Visit Vascular Surgery - [place] [address] [facility] [address] [place] [address] Krupa Garcia MD [address] [place] [address] documented as of this encounter Visit Diagnoses Not on filedocumented in this encounter Care Teams [employer] Energy Systems Installer Relationship Specialty Start Date End Date Will Monroe MD [address] [place] [phone] PCP - General Internal Medicine 07/08/24 documented as of this encounter
--- OUTSIDE RECORDS SUMMARY | 2025-04-17 12:55 | XMS_ITS ---
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 ([facility] V24, [facility] V28) 02/19/2025 Fall 02/06/2025 Small cell lung cancer, left lower lobe ([facility] V24, [facility] V28) 12/26/2024 Cancer Staging:Clinical stage from 01/16/2025:Stage IA2(cT1b, cN0, cM0) - Signed by Alba Zapien MD on 01/16/2025 Rib pain on right side 12/25/2024 Exercise hypoxemia 12/25/2024 Cognitive impairment 12/25/2024 CAD in [place] artery 12/25/2024 Lung nodule 12/03/2024 Acute respiratory failure wi th hypoxia and hypercapnia ([facility] V24, [facility] V28) 11/25/2024 Pulmonary nodule 10/07/2024 Assessment & [...] Hilar lymphadenopathy 10/07/2024 Osteopenia 09/16/2021 Psoriatic arthritis ([facility] V24, [facility] V28) 1 10/12/2020 Overview (06/12/2024): Josh started 03/2021 History of COVID-19 08/11/2021 Overview [...] kidney disease) stage 3, GFR 30-59 ml/min ([facility] V24, [facility] V28) 03/13/2018 Hyperlipidemia 03/13/2018 Multilevel degenerative disc disease 03/13/2018 Renal calculi 03/13/2018 Overview (06/12/2024): Right, small and nonobstructing Irritable bowel syndrome 03/08/2018 Dermatochalasis of both upper eyelids 11/22/2017 Overview (06/12/2024): Severe bilateral senile ptosis, 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 Nuclear sclerosis of both eyes 11/22/2017 Anxiety 07/24/2017 Overview (06/12/2024): Followed by ADELA Rose, [address]. 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 Headache 07/24/2017 Overview (06/12/2024): Intractable chronic post-traumatic h/a. Hypertension 07/24/2017 Occlusion of left carotid artery 07/24/2017 Overview (06/12/2024): MRA 04/24/14, MRA neck 01/12/2016: Occlusion of L ICA. Updated stable 12/01/17: No significant right internal carotid stenosis by Doppler Seizure disorder (CMS/HCC V24, CMS/HCC V28) 11/2016 Overview (06/12/2024): 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 On Dilantin Thrombocytopenia ([facility] V24) 07/24/2017 Vitamin D deficiency 07/24/2017 Current Oncology Plans PACLitaxel / CARBOplatin with Concurrent Radiation* Plan Start Date:01/27/2025 Plan Provider:Mihaela Barbour MD Linked Problems Small cell lung cancer, left lower lobe (CMS/HCC V24, CMS/HCC V28) Treatment Medications Current Day (Day 8 , Cycle 2 - Planned for 03/15/2025) Next Day (Day 15, Cycle 2 - Planned for 03/22/2025) CARBOplatin (PARAPLATIN) chemo 250 mL IVPB (by AUC)PACLitaxel [...] Total Dose Given/Prescribed Technique Left lung 5 5 42 30 of 30 200 cGy / 200 cGy 6,000 cGy / 6, 000 cGy 2 arc VMAT Lifetime Dose Tracking * Chemical Lifetime Dose Automatic Entry Manual Entr y Fluoro Time 7.49 minutes 7.49 minutes 0 minutes Air Kerma 300.5 mGy 300.5 mGy 0 mGy CTDIvol 10.56 mGy 10.56 mGy 0 mGy
--- OUTSIDE RECORDS SUMMARY | 2025-04-17 12:56 | XMS_ITS | Encounter Summary ---
Author Organization [facility] Address [address] [place] [address] Care Team Providers Care Installation Manager Name Role Phone Will Monroe MD Primary Care Provider [phone] Reason for Visit * Reason Onset Date Comments DME navi so 04/15/2025 Encounter Details Date Type Department Care Team (Late st Contact Info) Description 04/15/2025 Telephone [facility] Hematology Oncology [address] [place] [address] Catalina Mcguire, RN Social History Tobacco Use Types Packs/Day Years [...] as of this encounter Progress Notes * Catalina Mcguire RN - 04/15/2025 11:58 AM EDT Script entered into [employer]. Script printed and handed to the patient while in office today. Patient will need to take script, ID and insurance cards to local DME company (list provided). DME company to process request. documented in this encounter Plan of Treatment Upcoming Encounters Date Type Department Care Team (Late st Contact Info) Description 04/29/2025 3:00 PM EDT Appointment [facility] Radiation Oncology [address] [place] [phone] Alba Zapien MD [address] [place] [address] 05/13/2025 10:45 AM EDT Office Visit [facility] Hematology Oncology [address] [place] [phone] Mihaela Barbour MD [address] [place] [address] 07/16/2025 11:00 AM EST Office Visit Adult Medicine [facility] [address] [place] [phone] Will Monroe MD [address] [place] [address] 08/20/2025 11:00 AM EST Office Visit Pulmonolgy - [place] 175 [facility] [address] [place] [phone] Jelena Hoff NP [address] [place] [address] 03/03/2026 11:00 AM EDT Appointment [facility] Ultrasound [address] [place] [address] 04/01/2026 11:30 AM EDT Office Visit Vascular Surgery - [place] [address] [place] [phone] Krupa Garcia MD [address] [place] [address] documented as of this encounter Visit Diagnoses Diagnosis 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 (CMS/HCC V24, CMS/HCC V28)- Primary Gait instability Abnormality of gait documented in this encounter Orders General Supply Count Last Ordered Date First Or dered Date WALKER 1 04/15/2025 documented in this encounter Care Teams Installation Manager Relationship Specialty Start Date End Date Will Monroe MD [address] [place] [phone] PCP - General Internal Medicine 07/08/24 documented as of this encounter
--- OUTSIDE RECORDS SUMMARY | 2025-04-17 12:56 | XMS_ITS | Clinical Summary ---
Author Organization [facility] Address [address] [place] [address] Phone Care Team Providers Care Career Development Associate Name Role Phone Will Monroe MD Primary Care Provider [phone] Allergies Active Allergy Reactions Criticality Noted Date [...] skin every 14 days for 28 days. 08/11/20 21 Active ARIPiprazole (ABILIFY) 5 mg tablet Take 1 tablet (5 mg total) by mouth 1 (one) time each day. Active diazePAM (VALIUM) 10 mg tablet Take 1 Tablet by mouth every 8 hours as needed for Anxiety. 12/16/19 23 Active docusate sodium (COLACE) 100 mg capsule Take 1 Cap by mouth 2 times daily for 30 days. 04/09/20 18 Active mirtazapine (REMERON) 15 mg tablet Take 1.5 tablets (22.5 mg total) by mouth at bedtime. 01/30/20 24 Active fluticasone-salmet avery (ADVAIR DISKUS) 250-50 mcg/dose diskus inhalerIndications :Pulmonary emphysema, unspecified emphysema type (CMS/HCC V24, CMS/[facility] V28) Inhale 1 puff by mouth 2 (two) times a day. Inhale 1 Puff into the lungs 2 times daily. 3 each 3 09/24/19 25 Active tiotropium (Spiriva with HandiHaler) 18 mcg per inhalation capsuleIndications :Pulmonary emphysema, unspecified emphysema type (CMS/HCC V24, CMS/HCC V28) Place 1 capsule (18 mcg total) into inhaler and inhale 1 (one) time each day. 3 each 3 09/24/19 25 Active phenytoin (DILANTIN) 100 mg ER capsuleIndications :Seizure disorder (CMS/[facility] V24, CMS/[facility] V28) Take 1 capsule (100 mg total) by mouth 2 (two) times a day. 270 capsule 11/19/19 25 Active cloNIDine (CATAPRES) 0.1 mg tablet TAKE ONE TABLET TWICE DAILY 180 tablet 1 11/29/19 25 Active carvediloL (COREG) 12.5 mg tablet TAKE ONE TABLET TWICE DAILY 180 tablet 1 11/29/19 25 Active ondansetron ODT (ZOFRAN-ODT) 4 mg disintegrating tablet DISSOLVE ONE TABLET IN MOUTH EVERY EIGHT HOURS NEEDED FOR NAUSEA 40 each 1 11/29/19 25 Active albuterol HFA (PROAIR HFA ; PROVENTIL HFA ; VENTOLIN HFA) 90 mcg/actuation inhalerIndications :Chronic obstructive pulmonary disease, unspecified COPD type (CMS/[facility] V24, CMS/[facility] V28) Inhale 2 puffs by mouth every 4 (four) hours if needed for wheezing or shortness of breath. 36 g 5 12/15/19 25 026 Active albuterol 2.5 mg /3 mL (0.083 %) nebulizer solution Take 3 mL (2.5 mg total) by nebulization every 4 (four) hours if needed for wheezing. 75 mL 11 12/28/19 25 025 Active furosemide (LASIX) 20 mg tablet Take 1 tablet (20 mg total) by mouth 1 (one) time each day. 30 each 01/08/20 25 Active dexAMETHasone (DECADRON) 4 mg tabletIndications: Small cell carcinoma of lung, unspecified laterality, unspecified part of lung ([facility] V24, CMS/HCC V28) Take 8 mg (2 tablets) once daily, starting the day after treatment, for two days. Take in the morning with food. 30 tablet 1 02/06/20 25 Active prochlorperazine (COMPAZINE) 10 mg tabletIndications: Small cell carcinoma of lung, unspecified laterality, unspecified part of lung (CMS/HCC V24, CMS/HCC V28) Take 1 tablet (10 mg total) by mouth every 6 (six) hours if needed for nausea or vomiting. 60 tablet 3 02/06/20 25 Active traMADoL (ULTRAM) 50 mg tablet Take 1 tablet (50 mg total) by mouth at bedtime as needed for moderate pain. Max Daily Amount: 50 mg 7 tablet 02/12/20 25 Active simvastatin (ZOCOR) 20 mg tablet Take 1 tablet (20 mg total) by mouth at bedtime. 90 tablet 1 03/13/20 25 Active clopidogreL (PLAVIX) 75 mg tablet Take 1 tablet (75 mg total) by mouth 1 (one) time each day. 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 ([facility] V24, [facility] V28) 02/19/2025 Fall 02/06/2025 Small cell lung cancer, left lower lobe ([facility] V24, [facility] V28) 12/26/2024 Cancer Staging:Clinical stage from 01/16/2025:Stage IA2(cT1b, cN0, cM0) - Signed by Alba Zapien MD on 01/16/2025 Rib pain on right side 12/25/2024 Exercise hypoxemia 12/25/2024 Cognitive impairment 12/25/2024 CAD in [place] artery 12/25/2024 Lung nodule 12/03/2024 Acute respiratory failure wi th hypoxia and hypercapnia ([facility] V24, [facility] V28) 11/25/2024 Pulmonary nodule 10/07/2024 Assessment & [...] Hilar lymphadenopathy 10/07/2024 Osteopenia 09/16/2021 Psoriatic arthritis ([facility] V24, [facility] V28) 1 10/12/2020 Overview (06/12/2024): Josh started [...] kidney disease) stage 3, GFR 30-59 ml/min ([facility] V24, [facility]/HCC V28) 03/13/2018 Hyperlipidemia 03/13/2018 Multilevel degenerative disc disease 03/13/2018 Renal calculi 03/13/2018 Overview (06/12/2024): Right, small and nonobstructing Irritable bowel syndrome 03/08/2018 Dermatochalasis of both upper eyelids 11/22/2017 Overview (06/12/2024): Severe bilateral senile ptosis, 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 Nuclear sclerosis of both eyes 11/22/2017 Anxiety 07/24/2017 Overview (06/12/2024): Followed by ADELA Rose, Am[place]. 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 On Dilantin Thrombocytopenia ([facility] V24) 07/24/2017 Vitamin D deficiency 07/24/2017 Encounters Date Type Department Care Team Description 04/15/2025 12:42 PM EDT - 04/15/2025 11:59 PM EDT Hospital Encounter [facility] CT Scan [address] [place] [phone] Small cell lung cancer, left lower lobe ([facility] V24, [facility] V28) Discharge Disposition: Home or Self Care 04/15/2025 11:00 AM EDT Office Visit [facility] Hematology Oncology [address] [place] [phone] Mihaela Barbour MD Small cell carcinoma of left lung, unspecified part of lung ([facility] V24, [facility] V28) (Primary Dx); 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 ([facility] V24, [facility] V28) 04/15/2025 Telephone [facility] Hematology Oncology [address] [place] [phone] Catalina Mcguire RN 03/28/2025 Telephone Adult [address] [phone] Will Monroe MD 03/26/2025 11:00 AM EDT Office Visit Vascular Surgery [facility] [address] [facility] [address] [place] [phone] Krupa Garcia MD Occlusion of left carotid artery (Primary Dx); Arteriosclerosis of both carotid arteries; Asymptomatic bilateral carotid artery stenosis 03/24/2025 10:00 AM EDT Consult Orthopedic Surgery [facility] [address] [facility] [address] [place] [phone] Ko Meehan DPM Chemotherapy-induce d neuropathy ([facility] V24) (Primary Dx); Burning sensation of feet; Dermatophytosis of nail; Pain in toe of right foot; Pain in toe of left foot; Hammer toe of left foot; Acquired hammer toe of right foot; Acquired hallux valgus of right foot; Acquired hallux valgus of left foot 03/18/2025 10:20 AM EDT - 03/18/2025 11:59 PM EDT Hospital Encounter [facility] Radiation Oncology [address] [place] [phone] Rowena Garibay NP Small cell lung cancer, left lower lobe (CMS/HCC V24, CMS/HCC V28) (Primary Dx) Discharge Disposition: Home or Self Care 03/18/2025 10:15 AM EDT - 03/18/2025 11:59 PM EDT Hospital Encounter [facility] Radiation Oncology [address] [place] [phone] Discharge Disposition: Home or Self Care 03/17/2025 10:08 AM EDT - 03/17/2025 11:59 PM EDT Hospital Encounter [facility] Radiation Oncology [address] [place] [phone] Discharge Disposition: Home or Self Care 03/14/2025 10:20 AM EDT - 03/14/2025 11:59 PM EDT Hospital Encounter [facility] Radiation Oncology [address] [place] [phone] Alba Zapien MD Small cell lung cancer, left lower lobe (CMS/HCC V24, CMS/HCC V28) (Primary Dx) Discharge Disposition: Home or Self Care 03/14/2025 10:07 AM EDT - 03/14/2025 11:59 PM EDT Hospital Encounter [facility] Radiation Oncology [address] [place] [phone] Discharge Disposition: Home or Self Care 03/13/2025 10:08 AM EDT - 03/13/2025 11:59 PM EDT Hospital Encounter [facility] Radiation Oncology [address] [place] [phone] Discharge Disposition: Home or Self Care 03/12/2025 10:30 AM EDT - 03/12/2025 11:59 PM EDT Hospital Encounter [facility] Infusion Center [address] [place] [phone] Mihaela Barbour MD Small cell carcinoma of lung, unspecified laterality, unspecified part of lung (CMS/HCC V24, CMS/HCC V28) (Primary Dx) Discharge Disposition: Home or Self Care 03/12/2025 10:07 AM EDT - 03/12/2025 11:59 PM EDT Hospital Encounter [facility] Radiation Oncology [address] [place] [phone] Discharge Disposition: Home or Self Care 03/11/2025 10:48 AM EDT - 03/11/2025 11:59 PM EDT Hospital Encounter [facility] Ultrasound [address] [place] [phone] Carotid stenosis Discharge Disposition: Home or Self Care 03/11/2025 9:52 AM EDT - 03/11/2025 11:59 PM EDT Hospital Encounter [facility] Radiation Oncology [address] [place] [phone] Discharge Disposition: Home or Self Care 03/10/2025 9:54 AM EDT - 03/10/2025 11:59 PM EDT Hospital Encounter [facility] Radiation Oncology [address] [place] [phone] Discharge Disposition: Home or Self Care 03/07/2025 10:05 AM EDT - 03/07/2025 11:59 PM EDT Hospital Encounter [facility] Radiation Oncology [address] [place] [phone] Alba Zapien MD Small cell lung cancer, left lower lobe (CMS/HCC V24, CMS/HCC V28) (Primary Dx) Discharge Disposition: Home or Self Care 03/07/2025 9:54 AM EDT - 03/07/2025 11:59 PM EDT Hospital Encounter [facility] Radiation Oncology [address] [place] [phone] Discharge Disposition: Home or Self Care 03/06/2025 10:30 AM EDT Office Visit [facility] Hematology Oncology [address] [place] [phone] Mihaela Barbour MD 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 (CMS/HCC V24, CMS/HCC V28) (Primary Dx); Small cell lung cancer, left lower lobe (CMS/HCC V24, CMS/HCC V28) 03/06/2025 9:35 AM EDT - 03/06/2025 11:59 PM EDT Hospital Encounter [facility] Radiation Oncology [address] [place] [phone] Discharge Disposition: Home or Self Care 03/05/2025 10:22 AM EDT - 03/05/2025 11:59 PM EDT Hospital Encounter [facility] Infusion Center [address] [place] [phone] Mihaela Barbour MD Small cell lung cancer, left lower lobe (CMS/HCC V24, CMS/HCC V28) (Primary Dx) Discharge Disposition: Home or Self Care 03/05/2025 9:57 AM EDT - 03/05/2025 11:59 PM EDT Hospital Encounter [facility] Radiation Oncology [address] [place] [phone] Discharge Disposition: Home or Self Care 03/04/2025 9:54 AM EDT - 03/04/2025 11:59 PM EDT Hospital Encounter [facility] Radiation Oncology [address] [place] [phone] Discharge Disposition: Home or Self Care 03/03/2025 9:58 AM EDT - 03/03/2025 11:59 PM EDT Hospital Encounter [facility] Radiation Oncology [address] [place] [phone] Discharge Disposition: Home or Self Care 02/28/2025 10:05 AM EDT - 02/28/2025 11:59 PM EDT Hospital Encounter [facility] Radiation Oncology [address] [place] [phone] Raymond Nash MD Small cell lung cancer, left lower lobe (CMS/HCC V24, CMS/HCC V28) (Primary Dx) Discharge Disposition: Home or Self Care 02/28/2025 9:52 AM EDT - 02/28/2025 11:59 PM EDT Hospital Encounter [facility] Radiation Oncology [address] [place] [phone] Discharge Disposition: Home or Self Care 02/27/2025 10:00 AM EDT - 02/27/2025 11:59 PM EDT Hospital Encounter [facility] Radiation Oncology [address] [place] [phone] Discharge Disposition: Home or Self Care 02/26/2025 10:30 AM EDT - 02/26/2025 11:59 PM EDT Hospital Encounter [facility] Infusion Center [address] [place] [phone] Mihaela Barbour MD Small cell lung cancer, left lower lobe (CMS/HCC V24, CMS/HCC V28) (Primary Dx) Discharge Disposition: Home or Self Care 02/26/2025 9:55 AM EDT - 02/26/2025 11:59 PM EDT Hospital Encounter [facility] Radiation Oncology [address] [place] [phone] Discharge Disposition: Home or Self Care 02/25/2025 9:57 AM EDT - 02/25/2025 11:59 PM EDT Hospital Encounter [facility] Radiation Oncology [address] [place] [phone] Discharge Disposition: Home or Self Care 02/24/2025 9:50 AM EDT - 02/24/2025 11:59 PM EDT Hospital Encounter [facility] Radiation Oncology [address] [place] [phone] Discharge Disposition: Home or Self Care 02/24/2025 Telephone Pulmonolgy - [place] [address] [phone] Jelena Hoff NP 02/20/2025 10:05 AM EDT - 02/20/2025 11:59 PM EDT Hospital Encounter [facility] Radiation Oncology [address] [place] [phone] Alba Zapien MD Small cell lung cancer, left lower lobe (CMS/HCC V24, CMS/HCC V28) (Primary Dx) Discharge Disposition: Home or Self Care 02/20/2025 10:00 AM EDT - 02/20/2025 11:59 PM EDT Hospital Encounter [facility] Radiation Oncology [address] [place] [phone] Discharge Disposition: Home or Self Care 02/19/2025 10:30 AM EDT - 02/19/2025 11:59 PM EDT Hospital Encounter [facility] Infusion Center [address] [place] [phone] Mihaela Barbour MD Small cell carcinoma of lung, unspecified laterality, unspecified part of lung (CMS/HCC V24, CMS/HCC V28) (Primary Dx) Discharge Disposition: Home or Self Care 02/19/2025 10:00 AM EDT - 02/19/2025 11:59 PM EDT Hospital Encounter [facility] Radiation Oncology [address] [place] [phone] Discharge Disposition: Home or Self Care 02/18/2025 11:00 AM EDT Office Visit Pulmonolgy - [place] [address] [phone] Jelena Hoff NP Pulmonary emphysema, unspecified emphysema type ([facility]/HCC V24, CMS/HCC V28) (Primary Dx); Former heavy cigarette smoker (20-39 per day); Pulmonary nodule; Exercise hypoxemia; 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 (CMS/HCC V24, CMS/HCC V28); Small cell lung cancer, left lower lobe (CMS/HCC V24, CMS/HCC V28); Seizure disorder (CMS/HCC V24, CMS/HCC V28); Overweight (BMI 25.0-29.9) 02/18/2025 9:53 AM EDT - 02/18/2025 11:59 PM EDT Hospital Encounter [facility] Radiation Oncology [address] [place] [phone] Discharge Disposition: Home or Self Care 02/17/2025 9:51 AM EDT - 02/17/2025 11:59 PM EDT Hospital Encounter [facility] Radiation Oncology [address] [place] [phone] Discharge Disposition: Home or Self Care 02/14/2025 10:05 AM EDT - 02/14/2025 11:59 PM EDT Hospital Encounter [facility] Radiation Oncology [address] [place] [phone] Alba Zapien MD Small cell carcinoma of lung, unspecified laterality, unspecified part of lung (CMS/HCC V24, CMS/HCC V28) (Primary Dx) Discharge Disposition: Home or Self Care 02/14/2025 9:54 AM EDT - 02/14/2025 11:59 PM EDT Hospital Encounter [facility] Radiation Oncology [address] [place] [phone] Discharge Disposition: Home or Self Care 02/14/2025 Billing Patient Not Present Adult Medicine [address] [phone] Will Monroe MD 02/13/2025 10:22 AM EDT - 02/13/2025 11:59 PM EDT Hospital Encounter [facility] Radiation Oncology [address] [place] [phone] Discharge Disposition: Home or Self Care 02/13/2025 Telephone Adult Medicine [address] [phone] Shara Grant ID 02/12/2025 12:03 PM EDT - 02/12/2025 11:59 PM EDT Hospital Encounter [facility] Infusion Center [address] [place] [phone] Mihaela Barbour MD Small cell carcinoma of lung, unspecified laterality, unspecified part of lung (CMS/HCC V24, CMS/HCC V28) (Primary Dx) Discharge Disposition: Home or Self Care 02/12/2025 11:45 AM EDT Office Visit [facility] Hematology Oncology [address] [place] [phone] Mihaela Barbour MD Small cell carcinoma of lung, unspecified laterality, unspecified part of lung (CMS/HCC V24, CMS/HCC V28) (Primary Dx); Squamous cell carcinoma of right lung (CMS/HCC V24, CMS/HCC V28) 02/12/2025 10:30 AM EDT - 02/12/2025 11:59 PM EDT Hospital Encounter [facility] Radiation Oncology [address] [place] [phone] Discharge Disposition: Home or Self Care 02/11/2025 8:42 AM EDT - 02/11/2025 11:59 PM EDT Hospital Encounter [facility] Radiation Oncology [address] [place] [phone] Discharge Disposition: Home or Self Care 02/10/2025 10:30 AM EDT - 02/10/2025 11:59 PM EDT Hospital Encounter [facility] Radiation Oncology [address] [place] [phone] Discharge Disposition: Home or Self Care 02/10/2025 Telephone Adult Medicine [address] [phone] Will Monroe MD 02/07/2025 9:00 AM EDT - 02/07/2025 11:59 PM EDT Hospital Encounter [facility] Radiation Oncology [address] [place] [phone] Discharge Disposition: Home or Self Care 02/06/2025 3:00 PM EDT - 02/06/2025 11:59 PM EDT Hospital Encounter XRAY [address] [phone] Acute pain of left shoulder Discharge Disposition: Home or Self Care 02/06/2025 2:59 PM EDT - 02/06/2025 11:59 PM EDT Hospital Encounter XRAY [address] [phone] Rib pain Discharge Disposition: Home or Self Care 02/06/2025 2:30 PM EDT Office Visit Adult Medicine [address] [phone] Will Monroe MD Fall, initial encounter (Primary Dx); Acute pain of left shoulder; Rib pain; Malignant neoplasm of lung, unspecified laterality, unspecified part of lung (CMS/HCC V24, CMS/HCC V28); Primary hypertension 02/06/2025 10:23 AM EDT - 02/06/2025 11:59 PM EDT Hospital Encounter [facility] Radiation Oncology [address] [place] [phone] Discharge Disposition: Home or Self Care 02/06/[address] [phone] Will Monroe MD 02/05/2025 10:51 AM EDT - 02/05/2025 11:59 PM EDT Hospital Encounter [facility] Infusion Center [address] [place] [phone] Mihaela Barbour MD Small cell carcinoma of lung, unspecified laterality, unspecified part of lung ([facility] V24, [facility] V28) (Primary Dx) Discharge Disposition: Home or Self Care 02/05/2025 10:20 AM EDT - 02/05/2025 11:59 PM EDT Hospital Encounter [facility] Radiation Oncology [address] [place] [phone] Discharge Disposition: Home or Self Care 02/05/2025 Social Work [facility] Infusion Center [address] [place] [phone] Luda Quiñonez [facility] 02/04/2025 11:51 AM EDT - 02/04/2025 11:59 PM EDT Hospital Encounter [facility] Radiation Oncology [address] [place] [phone] Alba Zapien MD Small cell carcinoma of lung, unspecified laterality, unspecified part of lung ([facility]/HCC V24, [facility]/HCC V28) (Primary Dx) Discharge Disposition: Home or Self Care 02/04/2025 11:45 AM EDT - 02/04/2025 11:59 PM EDT Hospital Encounter [facility] Radiation Oncology [address] [place] [phone] Alba Zapien MD Discharge Disposition: Home or Self Care 02/04/2025 11:16 AM EDT - 02/04/2025 11:59 PM EDT Hospital Encounter [facility] Radiation Oncology [address] [place] [phone] Discharge Disposition: Home or Self Care 01/24/2025 11:30 AM EDT Office Visit [address] [phone] Yahaira Arreguin PA Impacted cerumen of right ear (Primary Dx) 01/23/2025 10:41 AM EDT - 01/23/2025 11:59 PM EDT Hospital Encounter [facility] Radiation Oncology [address] [place] [phone] Discharge Disposition: Home or Self Care 01/21/2025 8:54 AM EDT - 01/21/2025 11:59 PM EDT Hospital Encounter [facility] Radiation Oncology [address] [place] [phone] Alba Zapien MD Small cell carcinoma of lung, unspecified laterality, unspecified part of lung ([facility]/HCC V24, [facility]/HCC V28) Discharge Disposition: Home or Self Care 01/21/2025 8:15 AM EDT - 01/21/2025 11:59 PM EDT Hospital Encounter [facility] Radiation Oncology [address] [place] [phone] Small cell carcinoma of lung, unspecified laterality, unspecified part of lung ([facility]/HCC V24, [facility]/HCC V28) (Primary Dx) Discharge Disposition: Home or Self Care 01/15/2025 1:00 PM EDT Office Visit [facility] Hematology Oncology [address] [place] [phone] Mihaela Barbour MD Small cell carcinoma of lower lobe of left lung (CMS/HCC V24, CMS/HCC V28) (Primary Dx); Squamous cell carcinoma of right lung (CMS/HCC V24, CMS/HCC V28) from Last 3 Months Immunizations Name Administration [...] IF PRFRMD; COMMENT: s/p pelvic repair, [facility] UPPER GASTROINTESTINAL ENDOSCOPY 10/03/2018 PROCEDURE: UPPER GI [...] 30-59 ml/min (CMS/HCC V24, CMS/HCC V28) 03/13/2018 DX:CKD (chronic kidney disea se) stage 3, GFR 30-59 ml/min ([facility]) COPD (chronic obstructive pu lmonary disease) ([facility] V24, [facility] V28) 07/24/2017 DX:COPD (chronic o bstructive pulmonary disease) ([facility]); COMMENT: Chronic bronchitis Depression 07/24/2017 DX:Depression Dermatochalasis [...] COMMENT: Right, small and nonobstructing Seizure disorder ([facility] V2 4, [facility] V28) 07/24/2017 DX:Seizure disorder ([facility]LY [facility]); C OMMENT: 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 On Dilantin Thrombocytopenia ([facility] V24) 07/24/2017 D X:Thrombocytopenia ([facility]) Vitamin D deficiency 07/24/2017 DX:Vitamin D deficiency [...] uit: Not Asked; Counseling Given: Not Answered Comments:E-Cigarettes Alcohol Use Standard Drinks/Week Comments No [...] F) 04/15/2025 11:20 AM EDT Respiratory Rate 18 03/12/2025 11:0 0 AM EDT Oxygen Saturation 94% 04/15/2025 11: 20 AM EDT 2L nasal cannula Inhaled Oxygen Concentration - - Weight 74.4 kg (164 lb) 04/15/2025 11:2 0 AM EDT Height 162.6 cm (5' 4 ) 03/26/2025 11:0 0 AM EDT Body Mass Index 28.15 03/26/2025 11:00 AM EDT Plan of Treatment Upcoming Encounters Date Type Department Care Team (Late st Contact Info) Description 04/29/2025 3:00 PM EDT Appointment [facility] Radiation Oncology [address] [place] [phone] Alba Zapien MD [address] [place] [address] 05/13/2025 10:45 AM EDT Office Visit [facility] Hematology Oncology [address] [place] [phone] Mihaela Barbour MD [address] [place] [address] 07/16/2025 11:00 AM EST Office Visit Adult Medicine [facility] [address] [place] [phone] Will Monroe MD [address] [place] [address] 08/20/2025 11:00 AM EST Office Visit Pulmonolgy - [facility] [address] [place] [phone] Jelena Hoff, CARY [address] [place] [phone] 03/03/2026 11:00 AM EDT Appointment [facility] Ultrasound [address] [place] [phone] 04/01/2026 11:30 AM EDT Office Visit Vascular Surgery - [place] [address] [place] [phone] Krupa Garcia MD [address] [place] [phone] Health Maintenance Due Date Last Done Comments Zoster Vaccines (1 of 2) 1969 Colorectal Cancer Screening: Stool Based Tests (FOBT/FIT) 07/30/2022 Medicare Annual Wellness Visit 07/30/2022 Social Influencers of Health Screening 07/30/2022 RSV Immunization Adult Patients (1 - 1-dose 75+ series) 2023 COVID-19 Vaccine ( season) 2024 09/08/2021, 12/25/2020, 12/04/2020 Depression Screening 08/21/2024 Influenza Vaccine (#1) 2025 , 06/08/2023, 05/17/2022, Additional history exists DTaP,Tdap,and Td Vaccines (2 - Td or Tdap) 01/02/2026 01/03/2016 Hypertension/CHF/CAD Annual BMP Blood Test 03/11/2026 03/11/2025, 03/04/2025, 02/25/2025, Additional history exists Falls Risk Assessment 03/12/2026 03/12/2025 Cholesterol Screening (Lipid Panel) 06/08/2028 06/08/2023 Osteoporosis Screening (Bone Density Screening) 09/16/2031 09/16/2021 Pneumococcal Vaccine: 50+ Years Completed 08/28/2019, 08/25/2017 Hepatitis C Screening Completed 05/13/2020 HIB Vaccines Aged Out No longer eligi [...] this topic Medical Devices Implanted Type Area Environmental Services Attendant Device Identifier Shelf Expiration Date Model / Serial / Lot Marker Cobra Superlock - Sn/A - [id number] Implanted:Qt y: 1 on 11/20/2024 by Laura Avalos MD at [facility] Imaging Implants Right: Lung [employer] [id number] 06/26/2028 [id number] / N/A / [id number] Description:RIGHT UPPER LOBE Marker Cobra Superlock - Sn/A - [id number] Implanted:Qt y: 1 on 11/20/2024 by Laura Avalos MD at [facility] Imaging Implants Left: Lung [employer] 08/07/2028 [id number] / N/A / [id number] Description:LEFT LOWER LOBE Procedures Procedure Name Priority Date/Time Associated Diagnosis Comments RAD ONC MSQ TREATMENT SUMMARY Routine 03/18/2025 10:29 AM EDT RAD ONC MSQ TREATMENT SUMMARY Routine 03/17/2025 10:35 AM EDT RAD ONC MSQ TREATMENT SUMMARY Routine 03/14/2025 10:24 AM EDT RAD ONC MSQ TREATMENT SUMMARY Routine 03/13/2025 10:27 AM EDT RAD ONC MSQ TREATMENT SUMMARY Routine 03/12/2025 10:26 AM EDT PATHOLOGIST REVIEW BLOOD SMEAR Routine 03/11/2025 11:54 AM EDT Lung cancer (CMS/HCC V24, CMS/HCC V28) CBC WITH AUTO DIFFERENTIAL Routine 03/11/2025 11:54 AM EDT Lung cancer (CMS/HCC V24, CMS/HCC V28) COMPREHENSIVE METABOLIC PANEL Routine 03/11/2025 11:54 AM EDT Lung cancer (CMS/HCC V24, CMS/HCC V28) CBC AND DIFFERENTIAL Routine 03/11/2025 11:54 AM EDT Lung cancer (CMS/HCC V24, CMS/HCC V28) VAS US DUPLEX CAROTID BILATERAL Routine 03/11/2025 11:39 AM EDT Carotid stenosis RAD ONC MSQ TREATMENT SUMMARY Routine 03/11/2025 10:31 AM EDT RAD ONC MSQ TREATMENT SUMMARY Routine 03/10/2025 10:12 AM EDT RAD ONC MSQ TREATMENT SUMMARY Routine 03/07/2025 10:14 AM EDT RAD ONC MSQ TREATMENT SUMMARY Routine 03/06/2025 10:12 AM EDT RAD ONC MSQ TREATMENT SUMMARY Routine 03/05/2025 10:13 AM EDT CBC WITH AUTO DIFFERENTIAL Routine 03/04/2025 10:42 AM EDT Small cell lung cancer, left lower lobe (CMS/HCC V24, CMS/HCC V28) COMPREHENSIVE METABOLIC PANEL Routine 03/04/2025 10:42 AM EDT Small cell lung cancer, left lower lobe (CMS/HCC V24, CMS/HCC V28) CBC AND DIFFERENTIAL Routine 03/04/2025 10:42 AM EDT Small cell lung cancer, left lower lobe (CMS/HCC V24, CMS/HCC V28) MAGNESIUM Routine 03/04/2025 10:42 AM EDT RAD ONC MSQ TREATMENT SUMMARY Routine 03/04/2025 10:17 AM EDT RAD ONC MSQ TREATMENT SUMMARY Routine 03/03/2025 10:25 AM EDT RAD ONC MSQ TREATMENT SUMMARY Routine 02/28/2025 10:10 AM EDT RAD ONC MSQ TREATMENT SUMMARY Routine 02/27/2025 10:13 AM EDT RAD ONC MSQ TREATMENT SUMMARY Routine 02/26/2025 10:23 AM EDT CBC WITH AUTO DIFFERENTIAL Routine 02/25/2025 10:28 AM EDT Small cell lung cancer, left lower lobe (CMS/HCC V24, CMS/HCC V28) MAGNESIUM Routine 02/25/2025 10:28 AM EDT Small cell lung cancer, left lower lobe (CMS/HCC V24, CMS/HCC V28) COMPREHENSIVE METABOLIC PANEL Routine 02/25/2025 10:28 AM EDT Small cell lung cancer, left lower lobe (CMS/HCC V24, CMS/HCC V28) CBC AND DIFFERENTIAL Routine 02/25/2025 10:28 AM EDT Small cell lung cancer, left lower lobe (CMS/HCC V24, CMS/HCC V28) RAD ONC MSQ TREATMENT SUMMARY Routine 02/25/2025 10:15 AM EDT RAD ONC MSQ TREATMENT SUMMARY Routine 02/24/2025 10:09 AM EDT RAD ONC MSQ TREATMENT SUMMARY Routine 02/20/2025 10:11 AM EDT RAD ONC MSQ TREATMENT SUMMARY Routine 02/19/2025 10:17 AM EDT CBC WITH AUTO DIFFERENTIAL Routine 02/18/2025 10:29 AM EDT Small cell carcinoma of lung, unspecified laterality, unspecified part of lung (CMS/HCC V24, CMS/HCC V28) MAGNESIUM Routine 02/18/2025 10:29 AM EDT Small cell carcinoma of lung, unspecified laterality, unspecified part of lung (CMS/HCC V24, CMS/HCC V28) COMPREHENSIVE METABOLIC PANEL Routine 02/18/2025 10:29 AM EDT Small cell carcinoma of lung, unspecified laterality, unspecified part of lung (CMS/HCC V24, CMS/HCC V28) CBC AND DIFFERENTIAL Routine 02/18/2025 10:29 AM EDT Small cell carcinoma of lung, unspecified laterality, unspecified part of lung (CMS/HCC V24, CMS/HCC V28) RAD ONC MSQ TREATMENT SUMMARY Routine 02/18/2025 10:15 AM EDT RAD ONC MSQ TREATMENT SUMMARY Routine 02/17/2025 10:10 AM EDT RAD ONC MSQ TREATMENT SUMMARY Routine 02/14/2025 10:25 AM EDT RAD ONC MSQ TREATMENT SUMMARY Routine 02/13/2025 10:50 AM EDT RAD ONC MSQ TREATMENT SUMMARY Routine 02/12/2025 10:44 AM EDT CBC WITH AUTO DIFFERENTIAL Routine 02/11/2025 9:14 AM EDT Small cell carcinoma of lung, unspecified laterality, unspecified part of lung (CMS/HCC V24, CMS/HCC V28) MAGNESIUM Routine 02/11/2025 9:14 AM EDT Small cell carcinoma of lung, unspecified laterality, unspecified part of lung (CMS/HCC V24, CMS/HCC V28) COMPREHENSIVE METABOLIC PANEL Routine 02/11/2025 9:14 AM EDT Small cell carcinoma of lung, unspecified laterality, unspecified part of lung (CMS/HCC V24, CMS/HCC V28) CBC AND DIFFERENTIAL Routine 02/11/2025 9:14 AM EDT Small cell carcinoma of lung, unspecified laterality, unspecified part of lung (CMS/HCC V24, CMS/HCC V28) RAD ONC MSQ TREATMENT SUMMARY Routine 02/11/2025 8:58 AM EDT RAD ONC MSQ TREATMENT SUMMARY Routine 02/10/2025 10:48 AM EDT RAD ONC MSQ TREATMENT SUMMARY Routine 02/07/2025 9:16 AM EDT XR SHOULDER 2+ VIEWS LEFT Routine 02/06/2025 3:17 PM EDT Acute pain of left shoulder XR RIBS W CHEST 3+ VIEWS LEFT Routine 02/06/2025 3:16 PM EDT Rib pain RAD ONC MSQ TREATMENT SUMMARY Routine 02/06/2025 10:48 AM EDT RAD ONC MSQ TREATMENT SUMMARY Routine 02/05/2025 10:40 AM EDT CBC WITH AUTO DIFFERENTIAL Routine 02/04/2025 12:40 PM EDT Small cell carcinoma of lung, unspecified laterality, unspecified part of lung (CMS/HCC V24, CMS/HCC V28) MAGNESIUM Routine 02/04/2025 12:40 PM EDT Small cell carcinoma of lung, unspecified laterality, unspecified part of lung (CMS/HCC V24, CMS/HCC V28) COMPREHENSIVE METABOLIC PANEL Routine 02/04/2025 12:40 PM EDT Small cell carcinoma of lung, unspecified laterality, unspecified part of lung (CMS/HCC V24, CMS/HCC V28) CBC AND DIFFERENTIAL Routine 02/04/2025 12:40 PM EDT Small cell carcinoma of lung, unspecified laterality, unspecified part of lung (CMS/HCC V24, CMS/HCC V28) RAD ONC MSQ TREATMENT SUMMARY Routine 02/04/2025 11:51 AM EDT LIPID PANEL Routine 06/08/2023 DXA BONE DENSITY STUDY 1+ SITS AXIAL SKEL Routine 09/16/2021 11:06 AM EST Encounter for screening for osteoporosis HEPATITIS C SCREENING Routine 05/13/2020 from Last 3 Months or Most Recently Relevant to Health Maintenance Results * Rad Onc Msq Treatment Summary (03/18/2025 10:29 AM EDT) Treatment Site Left lung MOSAI Q RADIATION ONCOLOGY Course Number 1 MOSAIQ RADIATION ONCOLOGY Prescribed Fractional Dose 200 cGray MOSAIQ RADIATION ONCOLOGY Prescribed Total Dose 6,000 cGray MOSAIQ RADIATION ONCOLOGY Actual Fractions Delivered 30 MOSAIQ RADIATION ONCOLOGY Actual Session Delivered Dose 200 cGray MOSAIQ RADIATION ONCOLOGY Actual Total Dose 6,000 cGray MOSAIQ RADIATION ONCOLOGY Prescribed Technique 2 arc VMAT MOSAIQ RADIATION ONCOLOGY Elapsed Days 42 MOSAIQ RADIATION ONCOLOGY Start Date 02/04/2025 MOSAIQ RADIATION ONCOLOGY Last Date 03/18/2025 MOSAIQ RADIATION ONCOLOGY Prescribed Number of Fractions 30 MOSAIQ RADIATION ONCOLOGY 03/18/2025 10:2 9 AM EDT Physician Radiation Oncology RADIATION KENAN GY ORDERABLES Final Result MOSAIQ RADIATION ONCOLOGY * Rad Onc Msq Treatment Summary (03/17/2025 10:35 AM EDT) Treatment Site Left lung MOSAI Q RADIATION ONCOLOGY Course Number 1 MOSAIQ RADIATION ONCOLOGY Prescribed Fractional Dose 200 cGray MOSAIQ RADIATION ONCOLOGY Prescribed Total Dose 6,000 cGray MOSAIQ RADIATION ONCOLOGY Actual Fractions Delivered 29 MOSAIQ RADIATION ONCOLOGY Actual Session Delivered Dose 200 cGray MOSAIQ RADIATION ONCOLOGY Actual Total Dose 5,800 cGray MOSAIQ RADIATION ONCOLOGY Prescribed Technique 2 arc VMAT MOSAIQ RADIATION ONCOLOGY Elapsed Days 41 MOSAIQ RADIATION ONCOLOGY Start Date 02/04/2025 MOSAIQ RADIATION ONCOLOGY Last Date 03/17/2025 MOSAIQ RADIATION ONCOLOGY Prescribed Number of Fractions 30 MOSAIQ RADIATION ONCOLOGY 03/17/2025 10:3 5 AM EDT Physician Radiation Oncology RADIATION KENAN GY ORDERABLES Final Result MOSAIQ RADIATION ONCOLOGY * Rad Onc Msq Treatment Summary (03/14/2025 10:24 AM EDT) Treatment Site Left lung MOSAI Q RADIATION ONCOLOGY Course Number 1 MOSAIQ RADIATION ONCOLOGY Prescribed Fractional Dose 200 cGray MOSAIQ RADIATION ONCOLOGY Prescribed Total Dose 6,000 cGray MOSAIQ RADIATION ONCOLOGY Actual Fractions Delivered 28 MOSAIQ RADIATION ONCOLOGY Actual Session Delivered Dose 200 cGray MOSAIQ RADIATION ONCOLOGY Actual Total Dose 5,600 cGray MOSAIQ RADIATION ONCOLOGY Prescribed Technique 2 arc VMAT MOSAIQ RADIATION ONCOLOGY Elapsed Days 38 MOSAIQ RADIATION ONCOLOGY Start Date 02/04/2025 MOSAIQ RADIATION ONCOLOGY Last Date 03/14/2025 MOSAIQ RADIATION ONCOLOGY Prescribed Number of Fractions 30 MOSAIQ RADIATION ONCOLOGY 03/14/2025 10:2 4 AM EDT Physician Radiation Oncology RADIATION ONCOLO GY ORDERABLES Final Result MOSAIQ RADIATION ONCOLOGY * Rad Onc Msq Treatment Summary (03/13/2025 10:27 AM EDT) Treatment Site Left lung MOSAI Q RADIATION ONCOLOGY Course Number 1 MOSAIQ RADIATION ONCOLOGY Prescribed Fractional Dose 200 cGray MOSAIQ RADIATION ONCOLOGY Prescribed Total Dose 6,000 cGray MOSAIQ RADIATION ONCOLOGY Actual Fractions Delivered 27 MOSAIQ RADIATION ONCOLOGY Actual Session Delivered Dose 200 cGray MOSAIQ RADIATION ONCOLOGY Actual Total Dose 5,400 cGray MOSAIQ RADIATION ONCOLOGY Prescribed Technique 2 arc VMAT MOSAIQ RADIATION ONCOLOGY Elapsed Days 37 MOSAIQ RADIATION ONCOLOGY Start Date 02/04/2025 MOSAIQ RADIATION ONCOLOGY Last Date 03/13/2025 MOSAIQ RADIATION ONCOLOGY Prescribed Number of Fractions 30 MOSAIQ RADIATION ONCOLOGY 03/13/2025 10:2 7 AM EDT Physician Radiation Oncology RADIATION ONCOLO GY ORDERABLES Final Result Performing Organization Address City/[facility]/ZIP Co de Phone Number MOSAIQ RADIATION ONCOLOGY * Rad Onc Msq Treatment Summary (03/12/2025 10:26 AM EDT) Treatment Site Left lung MOSAI Q RADIATION ONCOLOGY Course Number 1 MOSAIQ RADIATION ONCOLOGY Prescribed Fractional Dose 200 cGray MOSAIQ RADIATION ONCOLOGY Prescribed Total Dose 6,000 cGray MOSAIQ RADIATION ONCOLOGY Actual Fractions Delivered 26 MOSAIQ RADIATION ONCOLOGY Actual Session Delivered Dose 200 cGray MOSAIQ RADIATION ONCOLOGY Actual Total Dose 5,200 cGray MOSAIQ RADIATION ONCOLOGY Prescribed Technique 2 arc VMAT MOSAIQ RADIATION ONCOLOGY Elapsed Days 36 MOSAIQ RADIATION ONCOLOGY Start Date 02/04/2025 MOSAIQ RADIATION ONCOLOGY Last Date 03/12/2025 MOSAIQ RADIATION ONCOLOGY Prescribed Number of Fractions 30 MOSAIQ RADIATION ONCOLOGY 03/12/2025 10:2 6 AM EDT Physician Radiation Oncology RADIATION ONCOLO GY ORDERABLES Final Result MOSAIQ RADIATION ONCOLOGY * Pathology review, blood smear (03/11/2025 11:54 AM EDT) Pathologist Review Blood Smear Pancytopenia including absolute neutropenia and lymphopenia, macrocytic anemia and thrombocytopeni a: consider chemotherapy effect vs. Other etiology. Thrombocytopeni a confirmed (no platelet clumps identified). 03/11/2025 1:34 PM EDT [facility] Blood Venous blood specimen / Unknown Venipuncture / Unknown 03/11/2025 11:54 AM EDT 03/11/2025 12:14 PM EDT us Mihaela Barbour MD LAB BLOOD ORDERABLES Final R esult [facility] [address] [place] [address], [place] [phone] * (ABNORMAL) CBC auto differential (03/11/2025 11:54 AM EDT) Only the most recent of6 resultswithin the time period is included. Pathologist [facility] WBC 2.0(L) 4.8 - 10.8 K/mcL LAB HEMETOLOGY METHOD 03/11/2025 12:40 PM EDT [facility] RBC 3.20(L) 3.80 - 4.80 M/mcL LAB HEMETOLOGY METHOD 03/11/2025 12:40 PM EDT [facility] Hemoglobin 10.4(L) 11.5 - 16.0 g/dL LAB HEMETOLOGY METHOD 03/11/2025 12:40 PM EDT [facility] Hematocrit 31.6(L) 35.0 - 47.0 % LAB HEMETOLOGY METHOD 03/11/2025 12:40 PM EDT [facility] MCV 98.4(H) 79.0 - 98.0 FL LAB HEMETOLOGY METHOD 03/11/2025 12:40 PM EDT [facility] MCH 32.4(H) 27.0 - 32.0 pcg LAB HEMETOLOGY METHOD 03/11/2025 12:40 PM EDT [facility] MCHC 32.9 32.0 - 37.0 g/dL LAB HEMETOLOGY METHOD [facility] RDW 13.1 11.0 - 15.0 % LAB HEMETOLOGY METHOD 03/11/2025 12:40 PM EDT [facility] Platelets 78(L) 130 - 400 K/mcL LAB HEMETOLOGY METHOD 03/11/2025 12:40 PM T [facility] Comment:previously verified by slide MPV 10.5 7.0 - 11.0 FL LAB HEMETOLOGY METHOD 03/11/2025 12:40 PM [facility] NRBC 0.0 <1.0 % LAB HEMETOLOGY METHOD [facility]2025 [facility] NR[facility] Absolute 0.00 <0.10 K/mcL LAB HEMETOLOGY METHOD 03/11[facility]2025 12[facility] Neutrophils Relative 66.5 % LAB HEMETOLOGY METHOD 03/11/2025 12:40 PM [facility] Lymphocytes Relative 23.4 % LAB HEMETOLOGY METHOD 03/11/2025 12:40 PM [facility] Monocytes Relative 7.6 % LAB HEMETOLOGY METHOD 03/11/2025 12:40 PM [facility] Eosinophils Relative 1.5 % LAB HEMETOLOGY METHOD 03/11/2025 12:40 PM [facility] Basophils Relative 0.5 % LAB HEMETOLOGY METHOD 03/11/2025 12:40 PM [facility] Immature Granulocytes Relative 0.5 % LAB HEMETOLOGY METHOD 03/11/2025 12:40 PM T [facility] Neutrophils Absolute 1.31(L) 1.50 - 7.00 K/mcL LAB HEMETOLOGY METHOD 03/11/2025 12:40 PM EDT [facility] Lymphocytes Absolute 0.46(L) 1.00 - 5.00 K/mcL LAB HEMETOLOGY METHOD 03/11/2025 12:40 PM EDT [facility] Monocytes Absolute 0.15(L) 0.20 - 1.00 K/mcL LAB HEMETOLOGY METHOD 03/11/2025 12:40 PM EDT [facility] Eosinophils Absolute 0.03 0.00 - 0.50 K/mcL LAB HEMETOLOGY METHOD 03/11/2025 12:40 PM EDT [facility] Basophils Absolute 0.01 0.00 - 0.20 K/mcL LAB HEMETOLOGY METHOD 03/11/2025 12:40 PM EDT [facility] Immature Granulocytes Absolute 0.01 0.00 - 0.03 K/[facility] HEMETOLOGY METHOD 03/11/2025 12:40 PM EDT [facility] Blood Venous blood specimen / Unknown Venipuncture / Unknown 03/11/2025 11:54 AM EDT 03/11/2025 12:14 PM EDT Mihaela Barbour MD LAB BLOOD ORDERABLES Final R esult [facility] [address] [place] [address], * (ABNORMAL) Comprehensive metabolic panel (03/11/2025 11:54 AM EDT) Only the most recent of6 resultswithin the time period is included. Sodium 139 133 - 145 mmol/L LAB CHEMISTRY METHOD 03/11/2025 1:22 PM EDT [facility] Potassium 4.5 3.5 - 5.5 mmol/L LAB CHEMISTRY METHOD 03/11/2025 1:22 PM [facility] Chloride 107 96 - 110 mmol/L LAB CHEMISTRY METHOD 03/11/2025 1:22 PM [facility] CO2 29 21 - 32 mmol/L LAB CHEMISTRY METHOD 03/11/2025 1:22 PM [facility] Anion Gap 3 3 - 11 LAB CHEMISTRY METHOD 03/11/2025 1:22 PM [facility] Glucose 104(H) 70 - 100 mg/dL LAB CHEMISTRY METHOD 03/11/2025 1:22 PM [facility] BUN 19 5 - 25 mg/dL LAB CHEMISTRY METHOD 03/11/2025 1:22 PM [facility] Creatinine 0.82 0.50 - 1.10 mg/dL LAB CHEMISTRY METHOD 03/11/2025 1:22 PM [facility] eGFR 74 >=60 mL/min/1. 73m2 LAB CHEMISTRY METHOD 03/11/2025 1:22 PM [facility] Comment:Calculation based on the Chronic Kidney Disease Epidemiology Collaboration (CKD-EPI) equation refit without adjustment for race. BUN/Creatinine Ratio 23.2 LAB CHEMISTRY METHOD 03/11/2025 1:22 PM [facility] Calcium 9.1 8.5 - 10.5 mg/dL LAB CHEMISTRY METHOD 03/11/2025 1:22 PM [facility] AST (SGOT) 14 10 - 42 unit/L LAB CHEMISTRY METHOD 03/11/2025 1:22 PM [facility] ALT (SGPT) 19 10 - 60 unit/L LAB CHEMISTRY METHOD 03/11/2025 1:22 PM [facility] Alkaline Phosphatase 97 42 - 121 unit/L LAB CHEMISTRY METHOD 03/11/2025 1:22 PM [facility] Total Protein 6.7 6.0 - 8.0 g/dL LAB CHEMISTRY METHOD 03/11/2025 1:22 PM EDT [facility] Albumin 3.8 3.2 - 5.0 g/dL LAB CHEMISTRY METHOD 03/11/2025 1:22 PM EDT [facility] Total Bilirubin 0.4 0.0 - 1.4 mg/dL LAB CHEMISTRY METHOD 03/11/2025 1:22 PM EDT [facility] Blood Venous blood specimen / Unknown Venipuncture / Unknown 03/11/2025 11:54 AM EDT 03/11/2025 12:15 PM EDT us Mihaela Barbour MD LAB BLOOD ORDERABLES Final R esult [facility] [address] [place] [address], [place] [phone] * Vascular US duplex carotid bilateral (03/11/2025 11:39 AM EDT) Anatomical Region Laterality Modality Vascular, Abdomen Ultrasound 03/11/2025 3:27 PM EDT Impressions 03/11/2025 4:06 PM EDT Bulky calcified plaque obscures the left carotid bifurcation. There are findings suggestive of a high-grade stenosis of the proximal internal carotid artery. This could be further evaluated with CT angiography. -------- FINAL REPORT -------- Dictated By: Naldo Page Dictated Date: 03/11/2025 15:27 ET Assigned Physician: Naldo Page Reviewed and Electronically Signed By: Naldo Page Signed Date: 03/11/2025 16:06 ET Workstation ID: [id number] Transcribed By: Self Edit Transcribed Date: 03/11/2025 16:01 ET Narrative 03/11/2025 4:06 PM EDT PROCEDURE: Carotid ultrasound. HISTORY: CAROTID STENOSIS. TECHNIQUE: Grayscale, color Doppler, and spectral Doppler ultrasound evaluation of the carotid and vertebral arteries in the neck. COMPARISON: 02/02/2024. FINDINGS: There is a small amount of calcified plaque at the right carotid bulb. No evidence of associated stenosis. More prominent plaque left carotid bulb. There is a high-grade stenosis of the left ECA origin with peak systolic velocities ranging up to 367 cm/s. The proximal left internal carotid artery is difficult to evaluate secondary to shadowing plaque. While there is no elevated peak systolic velocity in this area, waveforms just distal to the area of shadowing are blunted with low peak systolic velocities (31 cm/s) and a high-grade stenosis is suspected. Elevated velocities ranging up to 357 cm/s were documented in this area on the comparison study. Antegrade flow with normal spectral Doppler tracings in both vertebral arteries. Procedure Note Naldo Page MD - 03/11/2025 PROCEDURE: Carotid ultrasound. HISTORY: CAROTID STENOSIS. TECHNIQUE: Grayscale, color Doppler, and spectral Doppler ultrasoundevaluation of the carotid and vertebral arteries in the neck. COMPARISON: 02/02/2024. FINDINGS: There is a small amount of calcified plaque at the right carotid bulb. Noevidence of associated stenosis. More prominent plaque left carotid bulb. There is a high-grade stenosisof the left ECA origin with peak systolic velocities ranging up to 367cm/s. The proximal left internal carotid artery is difficult to evaluatesecondary to shadowing plaque. While there is no elevated peak systolicvelocity in this area, waveforms just distal to the area of shadowing areblunted with low peak systolic velocities (31 cm/s) and a high-gradestenosis is suspected. Elevated velocities ranging up to 357 cm/s weredocumented in this area on the comparison study. Antegrade flow with normal spectral Doppler tracings in both vertebralarteries. IMPRESSION: Bulky calcified plaque obscures the left carotid bifurcation. There arefindings suggestive of a high-grade stenosis of the proximal internalcarotid artery. This could be further evaluated with CT angiography. -------- FINAL REPORT -------- Dictated By: Naldo Page Dictated Date: 03/11/2025 15:27 ET Assigned Physician: Naldo Page Reviewed and Electronically Signed By: Naldo Page Signed Date: 03/11/2025 16:06 ET Workstation ID: [id number] Transcribed By: Self Edit Transcribed Date: 03/11/2025 16:01 ET Krupa Garcia MD CV VASCULAR PROCEDURES Fi nal Result * Rad Onc Msq Treatment Summary (03/11/2025 10:31 AM EDT) Treatment Site Left lung MOSAI Q RADIATION ONCOLOGY Course Number 1 MOSAIQ RADIATION ONCOLOGY Prescribed Fractional Dose 200 cGray MOSAIQ RADIATION ONCOLOGY Prescribed Total Dose 6,000 cGray MOSAIQ RADIATION ONCOLOGY Actual Fractions Delivered 25 MOSAIQ RADIATION ONCOLOGY Actual Session Delivered Dose 200 cGray MOSAIQ RADIATION ONCOLOGY Actual Total Dose 5,000 cGray MOSAIQ RADIATION ONCOLOGY Prescribed Technique 2 arc VMAT MOSAIQ RADIATION ONCOLOGY Elapsed Days 35 MOSAIQ RADIATION ONCOLOGY Start Date 02/04/2025 MOSAIQ RADIATION ONCOLOGY Last Date 03/11/2025 MOSAIQ RADIATION ONCOLOGY Prescribed Number of Fractions 30 MOSAIQ RADIATION ONCOLOGY 03/11/2025 10:3 1 AM EDT Physician Radiation Oncology RADIATION ONCOLO GY ORDERABLES Final Result Performing Organization Address City/[facility] Co de Phone Number MOSAIQ RADIATION ONCOLOGY * Rad Onc Msq Treatment Summary (03/10/2025 10:12 AM EDT) Treatment Site Left lung MOS[facility] Q RADIATION ONCOLOGY Course Number 1 [facility] RADIATION ONCOLOGY Prescribed Fractional Dose 200 cGray MOS[facility] RADIATION ONCOLOGY Prescribed Total Dose 6,000 cGray MOS[facility] RADIATION ONCOLOGY Actual Fractions Delivered 24 [facility] RADIATION ONCOLOGY Actual Session Delivered Dose 200 cGray MOS[facility] RADIATION ONCOLOGY Actual Total Dose 4,800 cGray MOS[facility]Q RADIATION ONCOLOGY Prescribed Technique 2 arc VMAT MOS[facility]Q RADIATION ONCOLOGY Elapsed Days 34 [facility] RADIATION ONCOLOGY Start Date 02/04/2025 [facility] RADIATION ONCOLOGY Last Date 03/10/2025 [facility] RADIATION ONCOLOGY Prescribed Number of Fractions 30 [facility] RADIATION ONCOLOGY 03/10/2025 10:1 2 AM EDT Physician Radiation Oncology RADIATION ONCOLO GY ORDERABLES Final Result [facility] RADIATION ONCOLOGY * Rad Onc Msq Treatment Summary (03/07/2025 10:14 AM EDT) Treatment Site Left lung MOSAI Q RADIATION ONCOLOGY Course Number 1 MOSAIQ RADIATION ONCOLOGY Prescribed Fractional Dose 200 cGray MOSAIQ RADIATION ONCOLOGY Prescribed Total Dose 6,000 cGray MOSAIQ RADIATION ONCOLOGY Actual Fractions Delivered 23 MOSAIQ RADIATION ONCOLOGY Actual Session Delivered Dose 200 cGray MOSAIQ RADIATION ONCOLOGY Actual Total Dose 4,600 cGray MOSAIQ RADIATION ONCOLOGY Prescribed Technique 2 arc VMAT MOS[facility] RADIATION ONCOLOGY Elapsed Days 31 MOS[facility] RADIATION ONCOLOGY Start Date 02/04/2025 MOS[facility] RADIATION ONCOLOGY Last Date 03/07/2025 [facility] RADIATION ONCOLOGY Prescribed Number of Fractions 30 MOS[facility]Q RADIATION ONCOLOGY 03/07/2025 10:1 4 AM EDT Physician Radiation Oncology RADIATION ONCBAO GY ORDERABLES Final Result [facility] RADIATION ONCOLOGY * Rad Onc Msq Treatment Summary (03/06/2025 10:12 AM EDT) Treatment Site Left lung MOSAI Q RADIATION ONCOLOGY Course Number 1 MOSAIQ RADIATION ONCOLOGY Prescribed Fractional Dose 200 cGray MOSAIQ RADIATION ONCOLOGY Prescribed Total Dose 6,000 cGray MOSAIQ RADIATION ONCOLOGY Actual Fractions Delivered 22 MOS[facility]Q RADIATION ONCOLOGY Actual Session Delivered Dose 200 cGray MOSAIQ RADIATION ONCOLOGY Actual Total Dose 4,400 cGray MOSAIQ RADIATION ONCOLOGY Prescribed Technique 2 arc VMAT MOSAIQ RADIATION ONCOLOGY Elapsed Days 30 MOSAIQ RADIATION ONCOLOGY Start Date 02/04/2025 MOSAIQ RADIATION ONCOLOGY Last Date 03/06/2025 MOS[facility]Q RADIATION ONCOLOGY Prescribed Number of Fractions 30 MOSAIQ RADIATION ONCOLOGY 03/06/2025 10:1 2 AM EDT Physician Radiation Oncology RADIATION ONCBAO GY ORDERABLES Final Result [facility] RADIATION ONCOLOGY * Rad Onc Msq Treatment Summary (03/05/2025 10:13 AM EDT) Treatment Site Left lung MOSAI Q RADIATION ONCOLOGY Course Number 1 MOSAIQ RADIATION ONCOLOGY Prescribed Fractional Dose 200 cGray MOSAIQ RADIATION ONCOLOGY Prescribed Total Dose 6,000 cGray MOSAIQ RADIATION ONCOLOGY Actual Fractions Delivered 21 MOSAIQ RADIATION ONCOLOGY Actual Session Delivered Dose 200 cGray MOSAIQ RADIATION ONCOLOGY Actual Total Dose 4,200 cGray MOSAIQ RADIATION ONCOLOGY Prescribed Technique 2 arc VMAT MOSAIQ RADIATION ONCOLOGY Elapsed Days 29 MOSAIQ RADIATION ONCOLOGY Start Date 02/04/2025 MOS[facility]Q RADIATION ONCOLOGY Last Date 03/05/2025 MOS[facility]Q RADIATION ONCOLOGY Prescribed Number of Fractions 30 MOSAIQ RADIATION ONCOLOGY 03/05/2025 10:1 3 AM EDT us Physician Radiation Oncology RADIATION ONCOLO GY ORDERABLES Final Result MOS[facility] RADIATION ONCOLOGY * Magnesium (03/04/2025 10:42 AM EDT) Only the most recent of5 resultswithin the time period is included. Magnesium 1.9 1.9 - 2.6 mg/dL LAB CHEMISTRY METHOD 03/04/2025 11:44 AM EDT [facility] Blood Venous blood specimen / Unknown Venipuncture / Unknown 03/04/2025 10:42 AM EDT 03/04/2025 11:08 AM EDT Mihaela Barbour MD LAB BLOOD ORDERABLES Final R esult Performing Organization Address City/[facility]/ZIP Co de Phone Number [facility] [address] [place] [address], [place] [phone] * Rad Onc Msq Treatment Summary (03/04/2025 10:17 AM EDT) Treatment Site Left lung MOSAI Q RADIATION ONCOLOGY Course Number 1 MOSAIQ RADIATION ONCOLOGY Prescribed Fractional Dose 200 cGray MOSAIQ RADIATION ONCOLOGY Prescribed Total Dose 6,000 cGray MOSAIQ RADIATION ONCOLOGY Actual Fractions Delivered 20 MOSAIQ RADIATION ONCOLOGY Actual Session Delivered Dose 200 cGray MOSAIQ RADIATION ONCOLOGY Actual Total Dose 4,000 cGray MOSAIQ RADIATION ONCOLOGY Prescribed Technique 2 arc VMAT MOSAIQ RADIATION ONCOLOGY Elapsed Days 28 MOSAIQ RADIATION ONCOLOGY Start Date 02/04/2025 MOSAIQ RADIATION ONCOLOGY Last Date 03/04/2025 MOSAIQ RADIATION ONCOLOGY Prescribed Number of Fractions 30 MOSAIQ RADIATION ONCOLOGY 03/04/2025 10:1 7 AM EDT Physician Radiation Oncology RADIATION ONCOLO GY ORDERABLES Final Result MOS[facility] RADIATION ONCOLOGY * Rad Onc Msq Treatment Summary (03/03/2025 10:25 AM EDT) Treatment Site Left lung MOSAI Q RADIATION ONCOLOGY Course Number 1 MOSAIQ RADIATION ONCOLOGY Prescribed Fractional Dose 200 cGray MOSAIQ RADIATION ONCOLOGY Prescribed Total Dose 6,000 cGray MOSAIQ RADIATION ONCOLOGY Actual Fractions Delivered 19 MOSAIQ RADIATION ONCOLOGY Actual Session Delivered Dose 200 cGray MOSAIQ RADIATION ONCOLOGY Actual Total Dose 3,800 cGray MOSAIQ RADIATION ONCOLOGY Prescribed Technique 2 arc VMAT MOSAIQ RADIATION ONCOLOGY Elapsed Days 27 MOSAIQ RADIATION ONCOLOGY Start Date 02/04/2025 MOSAIQ RADIATION ONCOLOGY Last Date 03/03/2025 MOSAIQ RADIATION ONCOLOGY Prescribed Number of Fractions 30 MOSAIQ RADIATION ONCOLOGY 03/03/2025 10:2 5 AM EDT Physician Radiation Oncology RADIATION ONCBAO GY ORDERABLES Final Result MOSAIQ RADIATION ONCOLOGY * Rad Onc Msq Treatment Summary (02/28/2025 10:10 AM EDT) Treatment Site Left lung MOSAI Q RADIATION ONCOLOGY Course Number 1 MOSAIQ RADIATION ONCOLOGY Prescribed Fractional Dose 200 cGray MOSAIQ RADIATION ONCOLOGY Prescribed Total Dose 6,000 cGray MOSAIQ RADIATION ONCOLOGY Actual Fractions Delivered 18 MOSAIQ RADIATION ONCOLOGY Actual Session Delivered Dose 200 cGray MOSAIQ RADIATION ONCOLOGY Actual Total Dose 3,600 cGray MOSAIQ RADIATION ONCOLOGY Prescribed Technique 2 arc VMAT MOSAIQ RADIATION ONCOLOGY Elapsed Days 24 MOSAIQ RADIATION ONCOLOGY Start Date 02/04/2025 MOSAIQ RADIATION ONCOLOGY Last Date 02/28/2025 MOSAIQ RADIATION ONCOLOGY Prescribed Number of Fractions 30 MOSAIQ RADIATION ONCOLOGY 02/28/2025 10:1 0 AM EDT Physician Radiation Oncology RADIATION ONCOLO GY ORDERABLES Final Result MOSAIQ RADIATION ONCOLOGY * Rad Onc Msq Treatment Summary (02/27/2025 10:13 AM EDT) Treatment Site Left lung MOSAI Q RADIATION ONCOLOGY Course Number 1 MOSAIQ RADIATION ONCOLOGY Prescribed Fractional Dose 200 cGray MOSAIQ RADIATION ONCOLOGY Prescribed Total Dose 6,000 cGray MOSAIQ RADIATION ONCOLOGY Actual Fractions Delivered 17 MOSAIQ RADIATION ONCOLOGY Actual Session Delivered Dose 200 cGray MOSAIQ RADIATION ONCOLOGY Actual Total Dose 3,400 cGray MOSAIQ RADIATION ONCOLOGY Prescribed Technique 2 arc VMAT MOSAIQ RADIATION ONCOLOGY Elapsed Days 23 MOSAIQ RADIATION ONCOLOGY Start Date 02/04/2025 MOSAIQ RADIATION ONCOLOGY Last Date 02/27/2025 MOSAIQ RADIATION ONCOLOGY Prescribed Number of Fractions 30 MOSAIQ RADIATION ONCOLOGY 02/27/2025 10:1 3 AM EDT Physician Radiation Oncology RADIATION ONCOLO GY ORDERABLES Final Result Performing Organization Address City/[facility] Co de Phone Number MOSAIQ RADIATION ONCOLOGY * Rad Onc Msq Treatment Summary (02/26/2025 10:23 AM EDT) Treatment Site Left lung MOSAI Q RADIATION ONCOLOGY Course Number 1 MOSAIQ RADIATION ONCOLOGY Prescribed Fractional Dose 200 cGray MOSAIQ RADIATION ONCOLOGY Prescribed Total Dose 6,000 cGray MOSAIQ RADIATION ONCOLOGY Actual Fractions Delivered 16 MOSAIQ RADIATION ONCOLOGY Actual Session Delivered Dose 200 cGray MOSAIQ RADIATION ONCOLOGY Actual Total Dose 3,200 cGray MOSAIQ RADIATION ONCOLOGY Prescribed Technique 2 arc VMAT MOSAIQ RADIATION ONCOLOGY Elapsed Days 22 MOSAIQ RADIATION ONCOLOGY Start Date 02/04/2025 MOSAIQ RADIATION ONCOLOGY Last Date 02/26/2025 MOSAIQ RADIATION ONCOLOGY Prescribed Number of Fractions 30 MOSAIQ RADIATION ONCOLOGY 02/26/2025 10:2 3 AM EDT Physician Radiation Oncology RADIATION ONCOLO GY ORDERABLES Final Result MOSAIQ RADIATION ONCOLOGY * Rad Onc Msq Treatment Summary (02/25/2025 10:15 AM EDT) Treatment Site Left lung MOSAI Q RADIATION ONCOLOGY Course Number 1 MOSAIQ RADIATION ONCOLOGY Prescribed Fractional Dose 200 cGray MOSAIQ RADIATION ONCOLOGY Prescribed Total Dose 6,000 cGray MOSAIQ RADIATION ONCOLOGY Actual Fractions Delivered 15 MOSAIQ RADIATION ONCOLOGY Actual Session Delivered Dose 200 cGray MOSAIQ RADIATION ONCOLOGY Actual Total Dose 3,000 cGray MOSAIQ RADIATION ONCOLOGY Prescribed Technique 2 arc VMAT MOSAIQ RADIATION ONCOLOGY Elapsed Days 21 MOSAIQ RADIATION ONCOLOGY Start Date 02/04/2025 MOSAIQ RADIATION ONCOLOGY Last Date 02/25/2025 MOSAIQ RADIATION ONCOLOGY Prescribed Number of Fractions 30 MOSAIQ RADIATION ONCOLOGY 02/25/2025 10:1 5 AM EDT Physician Radiation Oncology RADIATION ONCOLO GY ORDERABLES Final Result MOSAIQ RADIATION ONCOLOGY * Rad Onc Msq Treatment Summary (02/24/2025 10:09 AM EDT) Treatment Site Left lung MOSAI Q RADIATION ONCOLOGY Course Number 1 MOSAIQ RADIATION ONCOLOGY Prescribed Fractional Dose 200 cGray MOSAIQ RADIATION ONCOLOGY Prescribed Total Dose 6,000 cGray MOSAIQ RADIATION ONCOLOGY Actual Fractions Delivered 14 MOSAIQ RADIATION ONCOLOGY Actual Session Delivered Dose 200 cGray MOSAIQ RADIATION ONCOLOGY Actual Total Dose 2,800 cGray MOSAIQ RADIATION ONCOLOGY Prescribed Technique 2 arc VMAT MOSAIQ RADIATION ONCOLOGY Elapsed Days 20 MOSAIQ RADIATION ONCOLOGY Start Date 02/04/2025 MOSAIQ RADIATION ONCOLOGY Last Date 02/24/2025 MOSAIQ RADIATION ONCOLOGY Prescribed Number of Fractions 30 MOSAIQ RADIATION ONCOLOGY 02/24/2025 10:0 9 AM EDT Physician Radiation Oncology RADIATION ONCOLO GY ORDERABLES Final Result MOSAIQ RADIATION ONCOLOGY * Rad Onc Msq Treatment Summary (02/20/2025 10:11 AM EDT) Treatment Site Left lung MOSAI Q RADIATION ONCOLOGY Course Number 1 MOSAIQ RADIATION ONCOLOGY Prescribed Fractional Dose 200 cGray MOSAIQ RADIATION ONCOLOGY Prescribed Total Dose 6,000 cGray MOSAIQ RADIATION ONCOLOGY Actual Fractions Delivered 13 MOSAIQ RADIATION ONCOLOGY Actual Session Delivered Dose 200 cGray MOSAIQ RADIATION ONCOLOGY Actual Total Dose 2,600 cGray MOSAIQ RADIATION ONCOLOGY Prescribed Technique 2 arc VMAT MOSAIQ RADIATION ONCOLOGY Elapsed Days 16 MOSAIQ RADIATION ONCOLOGY Start Date 02/04/2025 MOSAIQ RADIATION ONCOLOGY Last Date 02/20/2025 MOSAIQ RADIATION ONCOLOGY Prescribed Number of Fractions 30 MOSAIQ RADIATION ONCOLOGY 02/20/2025 10:1 1 AM EDT Physician Radiation Oncology RADIATION ONCBAO GY ORDERABLES Final Result MOSAIQ RADIATION ONCOLOGY * Rad Onc Msq Treatment Summary (02/19/2025 10:17 AM EDT) Treatment Site Left lung MOSAI Q RADIATION ONCOLOGY Course Number 1 MOSAIQ RADIATION ONCOLOGY Prescribed Fractional Dose 200 cGray MOSAIQ RADIATION ONCOLOGY Prescribed Total Dose 6,000 cGray MOSAIQ RADIATION ONCOLOGY Actual Fractions Delivered 12 MOSAIQ RADIATION ONCOLOGY Actual Session Delivered Dose 200 cGray MOSAIQ RADIATION ONCOLOGY Actual Total Dose 2,400 cGray MOSAIQ RADIATION ONCOLOGY Prescribed Technique 2 arc VMAT MOSAIQ RADIATION ONCOLOGY Elapsed Days 15 MOSAIQ RADIATION ONCOLOGY Start Date 02/04/2025 MOSAIQ RADIATION ONCOLOGY Last Date 02/19/2025 MOSAIQ RADIATION ONCOLOGY Prescribed Number of Fractions 30 MOSAIQ RADIATION ONCOLOGY 02/19/2025 10:1 7 AM EDT Physician Radiation Oncology RADIATION ONCBAO GY ORDERABLES Final Result MOSAIQ RADIATION ONCOLOGY * Rad Onc Msq Treatment Summary (02/18/2025 10:15 AM EDT) Treatment Site Left lung MOSAI Q RADIATION ONCOLOGY Course Number 1 MOSAIQ RADIATION ONCOLOGY Prescribed Fractional Dose 200 cGray MOSAIQ RADIATION ONCOLOGY Prescribed Total Dose 6,000 cGray MOSAIQ RADIATION ONCOLOGY Actual Fractions Delivered 11 MOSAIQ RADIATION ONCOLOGY Actual Session Delivered Dose 200 cGray MOSAIQ RADIATION ONCOLOGY Actual Total Dose 2,200 cGray MOSAIQ RADIATION ONCOLOGY Prescribed Technique 2 arc VMAT MOSAIQ RADIATION ONCOLOGY Elapsed Days 14 MOSAIQ RADIATION ONCOLOGY Start Date 02/04/2025 MOSAIQ RADIATION ONCOLOGY Last Date 02/18/2025 MOSAIQ RADIATION ONCOLOGY Prescribed Number of Fractions 30 MOSAIQ RADIATION ONCOLOGY 02/18/2025 10:1 5 AM EDT us Physician Radiation Oncology RADIATION ONCOLO GY ORDERABLES Final Result MOSAIQ RADIATION ONCOLOGY * Rad Onc Msq Treatment Summary (02/17/2025 10:10 AM EDT) Treatment Site Left lung MOSAI Q RADIATION ONCOLOGY Course Number 1 MOSAIQ RADIATION ONCOLOGY Prescribed Fractional Dose 200 cGray MOSAIQ RADIATION ONCOLOGY Prescribed Total Dose 6,000 cGray MOSAIQ RADIATION ONCOLOGY Actual Fractions Delivered 10 MOSAIQ RADIATION ONCOLOGY Actual Session Delivered Dose 200 cGray MOSAIQ RADIATION ONCOLOGY Actual Total Dose 2,000 cGray MOSAIQ RADIATION ONCOLOGY Prescribed Technique 2 arc VMAT MOSAIQ RADIATION ONCOLOGY Elapsed Days 13 MOSAIQ RADIATION ONCOLOGY Start Date 02/04/2025 MOSAIQ RADIATION ONCOLOGY Last Date 02/17/2025 MOSAIQ RADIATION ONCOLOGY Prescribed Number of Fractions 30 MOSAIQ RADIATION ONCOLOGY 02/17/2025 10:1 0 AM EDT Physician Radiation Oncology RADIATION ONCBAO GY ORDERABLES Final Result MOSAIQ RADIATION ONCOLOGY * Rad Onc Msq Treatment Summary (02/14/2025 10:25 AM EDT) Treatment Site Left lung MOSAI Q RADIATION ONCOLOGY Course Number 1 MOSAIQ RADIATION ONCOLOGY Prescribed Fractional Dose 200 cGray MOSAIQ RADIATION ONCOLOGY Prescribed Total Dose 6,000 cGray MOSAIQ RADIATION ONCOLOGY Actual Fractions Delivered 9 MOSAIQ RADIATION ONCOLOGY Actual Session Delivered Dose 200 cGray MOSAIQ RADIATION ONCOLOGY Actual Total Dose 1,800 cGray MOSAIQ RADIATION ONCOLOGY Prescribed Technique 2 arc VMAT MOSAIQ RADIATION ONCOLOGY Elapsed Days 10 MOSAIQ RADIATION ONCOLOGY Start Date 02/04/2025 MOSAIQ RADIATION ONCOLOGY Last Date 02/14/2025 MOSAIQ RADIATION ONCOLOGY Prescribed Number of Fractions 30 MOSAIQ RADIATION ONCOLOGY 02/14/2025 10:2 5 AM EDT Physician Radiation Oncology RADIATION ONCOLO GY ORDERABLES Final Result MOSAIQ RADIATION ONCOLOGY * Rad Onc Msq Treatment Summary (02/13/2025 10:50 AM EDT) Treatment Site Left lung MOSAI Q RADIATION ONCOLOGY Course Number 1 MOSAIQ RADIATION ONCOLOGY Prescribed Fractional Dose 200 cGray MOSAIQ RADIATION ONCOLOGY Prescribed Total Dose 6,000 cGray MOSAIQ RADIATION ONCOLOGY Actual Fractions Delivered 8 MOSAIQ RADIATION ONCOLOGY Actual Session Delivered Dose 200 cGray MOSAIQ RADIATION ONCOLOGY Actual Total Dose 1,600 cGray MOSAIQ RADIATION ONCOLOGY Prescribed Technique 2 arc VMAT MOSAIQ RADIATION ONCOLOGY Elapsed Days 9 MOSAIQ RADIATION ONCOLOGY Start Date 02/04/2025 MOSAIQ RADIATION ONCOLOGY Last Date 02/13/2025 MOSAIQ RADIATION ONCOLOGY Prescribed Number of Fractions 30 MOSAIQ RADIATION ONCOLOGY 02/13/2025 10:5 0 AM EDT Physician Radiation Oncology RADIATION ONCBAO GY ORDERABLES Final Result Performing Organization Address City/[facility]/ZIP Co de Phone Number MOSAIQ RADIATION ONCOLOGY * Rad Onc Msq Treatment Summary (02/12/2025 10:44 AM EDT) Treatment Site Left lung MOSAI Q RADIATION ONCOLOGY Course Number 1 MOSAIQ RADIATION ONCOLOGY Prescribed Fractional Dose 200 cGray MOSAIQ RADIATION ONCOLOGY Prescribed Total Dose 6,000 cGray MOSAIQ RADIATION ONCOLOGY Actual Fractions Delivered 7 MOSAIQ RADIATION ONCOLOGY Actual Session Delivered Dose 200 cGray MOSAIQ RADIATION ONCOLOGY Actual Total Dose 1,400 cGray MOSAIQ RADIATION ONCOLOGY Prescribed Technique 2 arc VMAT MOSAIQ RADIATION ONCOLOGY Elapsed Days 8 MOSAIQ RADIATION ONCOLOGY Start Date 02/04/2025 MOSAIQ RADIATION ONCOLOGY Last Date 02/12/2025 MOSAIQ RADIATION ONCOLOGY Prescribed Number of Fractions 30 MOSAIQ RADIATION ONCOLOGY 02/12/2025 10:4 4 AM EDT Physician Radiation Oncology RADIATION ONCOLO GY ORDERABLES Final Result MOSAIQ RADIATION ONCOLOGY * Rad Onc Msq Treatment Summary (02/11/2025 8:58 AM EDT) Treatment Site Left lung MOSAI Q RADIATION ONCOLOGY Course Number 1 MOSAIQ RADIATION ONCOLOGY Prescribed Fractional Dose 200 cGray MOSAIQ RADIATION ONCOLOGY Prescribed Total Dose 6,000 cGray MOSAIQ RADIATION ONCOLOGY Actual Fractions Delivered 6 MOSAIQ RADIATION ONCOLOGY Actual Session Delivered Dose 200 cGray MOSAIQ RADIATION ONCOLOGY Actual Total Dose 1,200 cGray MOSAIQ RADIATION ONCOLOGY Prescribed Technique 2 arc VMAT MOSAIQ RADIATION ONCOLOGY Elapsed Days 7 MOSAIQ RADIATION ONCOLOGY Start Date 02/04/2025 MOSAIQ RADIATION ONCOLOGY Last Date 02/11/2025 MOSAIQ RADIATION ONCOLOGY Prescribed Number of Fractions 30 MOSAIQ RADIATION ONCOLOGY 02/11/2025 8:58 AM EDT Physician Radiation Oncology RADIATION ONCBAO GY ORDERABLES Final Result MOSAIQ RADIATION ONCOLOGY * Rad Onc Msq Treatment Summary (02/10/2025 10:48 AM EDT) Treatment Site Left lung MOSAI Q RADIATION ONCOLOGY Course Number 1 MOSAIQ RADIATION ONCOLOGY Prescribed Fractional Dose 200 cGray MOSAIQ RADIATION ONCOLOGY Prescribed Total Dose 6,000 cGray MOSAIQ RADIATION ONCOLOGY Actual Fractions Delivered 5 MOSAIQ RADIATION ONCOLOGY Actual Session Delivered Dose 200 cGray MOSAIQ RADIATION ONCOLOGY Actual Total Dose 1,000 cGray MOSAIQ RADIATION ONCOLOGY Prescribed Technique 2 arc VMAT MOSAIQ RADIATION ONCOLOGY Elapsed Days 6 MOSAIQ RADIATION ONCOLOGY Start Date 02/04/2025 MOSAIQ RADIATION ONCOLOGY Last Date 02/10/2025 MOSAIQ RADIATION ONCOLOGY Prescribed Number of Fractions 30 MOSAIQ RADIATION ONCOLOGY 02/10/2025 10:4 8 AM EDT us Physician Radiation Oncology RADIATION ONCBAO GY ORDERABLES Final Result MOSAIQ RADIATION ONCOLOGY * Rad Onc Msq Treatment Summary (02/07/2025 9:16 AM EDT) Treatment Site Left lung MOSAI Q RADIATION ONCOLOGY Course Number 1 MOSAIQ RADIATION ONCOLOGY Prescribed Fractional Dose 200 cGray MOSAIQ RADIATION ONCOLOGY Prescribed Total Dose 6,000 cGray MOSAIQ RADIATION ONCOLOGY Actual Fractions Delivered 4 MOSAIQ RADIATION ONCOLOGY Actual Session Delivered Dose 200 cGray MOSAIQ RADIATION ONCOLOGY Actual Total Dose 800 cGray MOSAIQ RADIATION ONCOLOGY Prescribed Technique 2 arc VMAT MOSAIQ RADIATION ONCOLOGY Elapsed Days 3 MOSAIQ RADIATION ONCOLOGY Start Date 02/04/2025 MOSAIQ RADIATION ONCOLOGY Last Date 02/07/2025 MOSAIQ RADIATION ONCOLOGY Prescribed Number of Fractions 30 MOSAIQ RADIATION ONCOLOGY 02/07/2025 9:16 AM EDT Physician Radiation Oncology RADIATION ONCOLO GY ORDERABLES Final Result [employer] RADIATION ONCOLOGY * XR Shoulder 2+ Views Left (02/06/2025 3:17 PM EDT) Anatomical Region Laterality Modality Upper Extremities, Shoulder Left Radi ographic Imaging 02/06/2025 5:03 PM EDT Impressions 02/06/2025 5:05 PM EDT No displaced fracture. -------- FINAL REPORT -------- Dictated By: Hai Conroy Dictated Date: 02/06/2025 17:03 ET Assigned Physician: Hai Conroy Reviewed and Electronically Signed By: Hai Conroy Signed Date: 02/06/2025 17:05 ET Workstation ID: [id number] Transcribed By: Self Edit Transcribed Date: 02/06/2025 17:03 ET Narrative 02/06/2025 5:05 PM EDT XR SHOULDER 2+ VIEWS LEFT Reason: shoulder blade pain s/p fall r/o fx Comparison: None FINDINGS: Mild degenerative changes at the acromioclavicular joint. Normal alignment. No displaced fracture. No abnormal soft tissue calcification. Procedure Note Hai Conroy MD - 02/06/2025 XR SHOULDER 2+ VIEWS LEFT Reason: shoulder blade pain s/p fall r/o fx Comparison: None FINDINGS: Mild degenerative changes at the acromioclavicular joint. Normalalignment. No displaced fracture. No abnormal soft tissue calcification. IMPRESSION: No displaced fracture. -------- FINAL REPORT -------- Dictated By: Hai Conroy Dictated Date: 02/06/2025 17:03 ET Assigned Physician: Hai Conroy Reviewed and Electronically Signed By: Hai Conroy Signed Date: 02/06/2025 17:05 ET Workstation ID: [id number] Transcribed By: Self Edit Transcribed Date: 02/06/2025 17:03 ET us Will Monroe MD IMG XR PROCEDURES Final Result * XR Ribs w Chest 3+ Views Left (02/06/2025 3:16 PM EDT) Anatomical Region Laterality Modality Body Left Radiographic Mireya ging 02/06/2025 4:02 PM EDT Impressions 02/06/2025 4:04 PM EDT 1. No acute cardiopulmonary abnormality. 2. No displaced left rib fractures. -------- FINAL REPORT -------- Dictated By: Hai Conroy Dictated Date: 02/06/2025 16:02 ET Assigned Physician: Hai Conroy Reviewed and Electronically Signed By: Hai Conroy Signed Date: 02/06/2025 16:04 ET Workstation ID: [id number] Transcribed By: Self Edit Transcribed Date: 02/06/2025 16:02 ET Narrative 02/06/2025 4:04 PM EDT XR RIBS W CHEST 3+ VIEWS LEFT Reason: rib pain follow a fall Comparison: None FINDINGS: Lungs: No focal consolidation. Pleura: No pleural effusion or pneumothorax. Heart/Mediastinum: Cardiomediastinal silhouette is within normal limits. Bones/Soft Tissues: No displaced rib fractures. There are 3 metallic structures projecting over the chest that could be located in the overlying soft tissues or external to the patient. Procedure Note Hai Conroy MD - 02/06/2025 XR RIBS W CHEST 3+ VIEWS LEFT Reason: rib pain follow a fall Comparison: None FINDINGS: Lungs: No focal consolidation. Pleura: No pleural effusion or pneumothorax. Heart/Mediastinum: Cardiomediastinal silhouette is within normal limits. Bones/Soft Tissues: No displaced rib fractures. There are 3 metallicstructures projecting over the chest that could be located in theoverlying soft tissues or external to the patient. IMPRESSION: 1. No acute cardiopulmonary abnormality. 2. No displaced left rib fractures. -------- FINAL REPORT -------- Dictated By: Hai Conroy Dictated Date: 02/06/2025 16:02 ET Assigned Physician: Hai Conroy Reviewed and Electronically Signed By: Hai Conroy Signed Date: 02/06/2025 16:04 ET Workstation ID: [id number] Transcribed By: Self Edit Transcribed Date: 02/06/2025 16:02 ET us Will Monroe MD IMG XR PROCEDURES Final Result * Rad Onc Msq Treatment Summary (02/06/2025 10:48 AM EDT) Treatment Site Left lung MOSAI Q RADIATION ONCOLOGY Course Number 1 MOSAIQ RADIATION ONCOLOGY Prescribed Fractional Dose 200 cGray MOSAIQ RADIATION ONCOLOGY Prescribed Total Dose 6,000 cGray MOSAIQ RADIATION ONCOLOGY Actual Fractions Delivered 3 MOSAIQ RADIATION ONCOLOGY Actual Session Delivered Dose 200 cGray MOSAIQ RADIATION ONCOLOGY Actual Total Dose 600 cGray MOSAIQ RADIATION ONCOLOGY Prescribed Technique 2 arc VMAT MOSAIQ RADIATION ONCOLOGY Elapsed Days 2 MOSAIQ RADIATION ONCOLOGY Start Date 02/04/2025 MOSAIQ RADIATION ONCOLOGY Last Date 02/06/2025 MOSAIQ RADIATION ONCOLOGY Prescribed Number of Fractions 30 MOSAIQ RADIATION ONCOLOGY 02/06/2025 10:4 8 AM EDT Physician Radiation Oncology RADIATION ONCOLO GY ORDERABLES Final Result MOS[facility]Q RADIATION ONCOLOGY * Rad Onc Msq Treatment Summary (02/05/2025 10:40 AM EDT) Treatment Site Left lung MOSAI Q RADIATION ONCOLOGY Course Number 1 MOSAIQ RADIATION ONCOLOGY Prescribed Fractional Dose 200 cGray MOSAIQ RADIATION ONCOLOGY Prescribed Total Dose 6,000 cGray MOSAIQ RADIATION ONCOLOGY Actual Fractions Delivered 2 MOSAIQ RADIATION ONCOLOGY Actual Session Delivered Dose 200 cGray MOSAIQ RADIATION ONCOLOGY Actual Total Dose 400 cGray MOSAIQ RADIATION ONCOLOGY Prescribed Technique 2 arc VMAT MOSAIQ RADIATION ONCOLOGY Elapsed Days 1 MOSAIQ RADIATION ONCOLOGY Start Date 02/04/2025 MOSAIQ RADIATION ONCOLOGY Last Date 02/05/2025 MOSAIQ RADIATION ONCOLOGY Prescribed Number of Fractions 30 MOSAIQ RADIATION ONCOLOGY 02/05/2025 10:4 0 AM EDT Physician Radiation Oncology RADIATION ONCBAO GY ORDERABLES Final Result MOS[facility]Q RADIATION ONCOLOGY * Rad Onc Msq Treatment Summary (02/04/2025 11:51 AM EDT) Pathologist [facility] [place] Treatment Site Left lung MOSAI Q RADIATION ONCOLOGY Course Number 1 MOSAIQ RADIATION ONCOLOGY Prescribed Fractional Dose 200 cGray MOSAIQ RADIATION ONCOLOGY Prescribed Total Dose 6,000 cGray MOSAIQ RADIATION ONCOLOGY Actual Fractions Delivered 1 MOSAIQ RADIATION ONCOLOGY Actual Session Delivered Dose 200 cGray MOSAIQ RADIATION ONCOLOGY Actual Total Dose 200 cGray MOSAIQ RADIATION ONCOLOGY Prescribed Technique 2 arc VMAT MOSAIQ RADIATION ONCOLOGY Elapsed Days 0 MOSAIQ RADIATION ONCOLOGY Start Date 02/04/2025 MOSAIQ RADIATION ONCOLOGY Last Date 02/04/2025 MOSAIQ RADIATION ONCOLOGY Prescribed Number of Fractions 30 MOSAIQ RADIATION ONCOLOGY 02/04/2025 11:5 1 AM EDT Physician Radiation Oncology RADIATION ONCBAO GY ORDERABLES Final Result [facility] * Lipid panel (06/08/2023) Pathologist [facility] [place] LDL/HDL Ratio 2 0 - 4 Triglycerides 121 0 - 150 mg/dL Cholesterol 175 0 - 200 mg/dL HDL 91 >=40 mg/dL LDL Cholesterol 60 0 - 100 mg/dL Blood Venous blood specimen / Unknown us Historical Provider LAB BLOOD ORDERABLES Tamy l Result * DXA BONE DENSITY STUDY 1+ SITS AXIAL SKEL (09/16/2021 11:06 AM EST) Anatomical Region Laterality Modality Bone Densitometr y 08/12/2021 1:44 PM EST Narrative 09/16/2021 1:24 PM EST BONE DENSITY (DEXA) Lumbar Spine T-score is [...] (World Health Organization Fracture Risk Assessment) [facility] Department of Internal Medicine recommends using National [...] alternative screening schedule based on sadiq Franco., [facility] September 08, 2011 for patients with [...] (World Health Organization Fracture Risk Assessment) 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
== END 2025-04-17 11:45 | disposition home or self-care (01) ==
LOC: HO.HOP 11:45
PROVIDERS: PCP Internal Medicine; Visit Provider Clinical Nurse Specialist Psychiatric/Mental Health
DX: F33.1 Major depressive disorder, recurrent, moderate (principal); F43.11 Post-traumatic stress disorder, acute; F41.9 Anxiety disorder, unspecified
CPT/HCPCS: 99214

== ENCOUNTER 2025-04-29 12:38 | Outpatient (AMB) | payer MEDICARE, SELFPAY ==
--- NOTE | 2025-04-29 11:37 | MHC.OFFVISPS ---
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 Allergies No Known Allergies Allergy (Verified 01/30/24 12:28) Medication List - Last Reconciled 04/29/25 by Angie Neely APRN aripiprazole 7.5 mg (1/2 x 15 mg) PO DAILY 90 days carvedilol 12.5 mg PO BID clonidine HCl 0.1 mg PO BID clopidogrel 75 mg PO DAILY diazepam 10 mg PO TID PRN furosemide 20 mg PO DAILY levofloxacin mg PO mirtazapine 30 mg PO BEDTIME neomycin-polymyxin B-dexameth 3.5mg/mL-10,000 unit/mL-0.1 % drps ophthalmic (eye) ondansetron mg PO phenytoin sodium extended 100 mg PO TID prednisone 20 mg PO BID simvastatin 20 mg PO BEDTIME tiotropium bromide (Spiriva with HandiHaler) 1 cap inhalation DAILY HPI- Psychiatric Chief Complaint: depression HPI Narrative: Pt follow up done via telehealth; pt reports she is not doing well- she is still very anxious and depressed; she wakes in am very scared. she reports since increasing the remeron she has felt much more sedated and it lasts much of the day; she also reports that she has frequent nausea since increasing the abilify. she is tearful. she is more depressed. she is losing her hair. she is having great difficult coping. She had a MRI and she meets with oncologist to day at3pm. She is still playing cards with her social group 3 days a week. She is getting good support from friends and family. Pt is adherent with meds. she denies SI or HI. Past Psychiatric History: No IPLOC. anxiety started at age 3, always scared, constant worried thoughts, depression and anxiety for many years; her mother when she was 2 yo and pt had a difficult life with father and step mother intermittently being available- she and sister were frequently in foster care; pt has been in and out of treatment for years -outpatietn tx only . Subjective Subjective Subjective Medication Compliance: Yes Side effects from medications: No Review of Systems Medical Review of Systems: unchanged Mental Status Exam Mental Status Exam Patient Orientation: Person, Place, Time and Situation Level of Consciousness: Awake Patient Behavior: Appropriate and Crying Mood Description: Anxious and Sad Patient Cognition Impaired: No Ability to Follow Directions: Good Speech Pattern: Clear, Appropriate and Coherent Memory Description: Intact Hallucinations: None Delusions: Not Present Thought Process: Intact and Goal Oriented Thought Content: positive for Intact and positive for Goal Oriented Judgement: Good Telehealth Telehealth Telehealth Platform: Telephone Location of provider rendering services: practice address Location of patient: address on file Patient Identification confirmed using: Name, : Yes Telehealth method: voice only Patient verbally consented to treatment: Yes Patient verbally consented to billing insurance company: Yes Patient informed of any privacy concerns related to visit: Yes Minutes spent on Phone/Video with Pt.: 15 Assessment and Plan Assessment & Plan (1) Anxiety about health: Status: Acute Code(s): R45.89 - Other symptoms and signs involving emotional state (2) Major depressive disorder, recurrent episode, moderate with anxious distress: Status: Acute Code(s): F33.1 - Major depressive disorder, recurrent, moderate (3) PTSD (post-traumatic stress disorder): Status: Acute Code(s): F43.10 - Post-traumatic stress disorder, unspecified Plan decrease abilify to 5 mg daily decrease remeron to 22.5mg at bedtime follow up in 3 weeks Medications: New aripiprazole (Abilify) 5 mg PO DAILY 90 tabs 0RF mirtazapine (Remeron) 22.5 mg (1.5 x 15 mg) PO BEDTIME 135 tabs 0RF Counseling and coordination of Care Pt. Self Management counseling: Maintenance-social rhythm, Nutrition education and improvement, Sleep hygiene and General coping skills Medication management counseling: Effectiveness, Side effects and Adherence Diagnosis and Prognosis Counseling: Accuracy of diagnosis, Prognosis over time, Impact of diagnosis on life functions and Adequacy of current interventions Details: I spent 28 minutes reviewing the record, seeing the patient and documenting in the medical record. Counseling provided to the patient/caregiver as outlined below. Addressed patient/caregiver concerns regarding current medication regime including effective adherence. Addressed patient/caregiver concerns regarding diagnosis and prognosis including accuracy of diagnosis, prognosis over time, impact of diagnosis. Addressed patient/caregiver concerns regarding impact of recent stressors. PFSH Social History: lives with ; 2 adult daughters- estranged from one Substance History: none Trauma History: foster care as child- multiple homes Coding Level of Care Code Tele Est Pt Level 4 (24104) Diagnoses Anxiety about health R45.89 Major depressive disorder, recurrent episode, moderate with anxious distress F33.1 PTSD (post-traumatic stress disorder) F43.10
--- OUTSIDE RECORDS SUMMARY | 2025-04-29 14:53 | XMS_ITS | Encounter Summary ---
Author Organization [facility] Address [address] [place] [address] Care Team Providers Care Sheet Rock Applicator Name Role Phone Will Monroe MD Primary Care Provider [phone] Reason for Visit * Reason Comments Follow-up Encounter Details Date Type Department Care Team (Late Contact Info) Description 04/29/2025 2:53 PM EDT Hospital Encounter [facility] Radiation Oncology [address] [place] [phone] Alba Zapien MD [address] [place] [address] Arrived Social History Tobacco Use Types Packs/Day [...] 2:01 PM EST Sexual Orientation Straight 10/18/2024 2 :01 PM EST documented as of this encounter Plan of Treatment Upcoming Encounters Date Type Department Care Team (Late Contact Info) Description 05/13/2025 10:45 AM EDT Office Visit [facility] Hematology Oncology [address] [place] [phone] Mihaela Barbour MD [address] [place] [address] 07/16/2025 11:00 AM EST Office Visit Adult [facility] [address] [place], [place] [phone] Will Monroe MD [address] [place] [address] 08/20/2025 11:00 AM EST Office Visit Pulmonolgy [facility] [address] [facility] [address] [place] [phone] Jelena Hoff, CARY [address] [place] [phone] 03/03/2026 11:00 AM EDT Appointment [facility] Ultrasound [address] [place] [phone] 04/01/2026 11:30 AM EDT Office Visit V[facility] Surgery - [place] [address] [place] [phone] Krupa Garcia MD [address] [place] [phone] documented as of this encounter Visit Diagnoses Not on filedocumented in this encounter Care Teams Sheet Rock Applicator Relationship Specialty Start Date End Date Will Monroe MD [address] [place] [address] PCP - General Internal Medicine 07/08/24 documented as of this encounter
--- OUTSIDE RECORDS SUMMARY | 2025-04-29 15:00 | XMS_ITS | Encounter Summary ---
Author Organization [facility] Address [address] [place] [address] Care Team Providers Care Project Accountant Name Role Phone Will Monroe MD Primary Care Provider [phone] Reason for Visit * Reason Onset Date Comments faxed order 04/25/2025 Strut missed visit Encounter Details Date Type Department Care Team (Late st Contact Info) Description 04/25/2025 Telephone Adult Medicine [address] [phone] Will Monroe MD [address] [place] [address] Social History Tobacco Use Types Packs/Day Years [...] as of this encounter Progress Notes * Marian Kim - 04/25/2025 12:35 PM EDT [employer] missed visit received please sign and fax to [phone] documented in this encounter Plan of Treatment Upcoming Encounters Date Type Department Care Team (Late st Contact Info) Description 05/13/2025 10:45 AM EDT Office Visit [facility] Hematology Oncology [address] [place] [phone] Mihaela Barbour MD [address] [place] [address] 07/16/2025 11:00 AM EST Office Visit Adult Medicine [facility] [address] [place] [address] Will Monroe MD [address] [place] [address] 08/20/2025 11:00 AM EST Office Visit Pulmonolgy - [place] [address] [facility] [address] [place] [phone] Jelena Hoff NP [address] [place] [phone] 03/03/2026 11:00 AM EDT Appointment [facility] Ultrasound [address] [place] [phone] 04/01/2026 11:30 AM EDT Office Visit Vascular Surgery - [place] [address] [place] [phone] Krupa Garcia MD [address] [place] [phone] documented as of this encounter Visit Diagnoses Not on filedocumented in this encounter Care Teams Project Accountant Relationship Specialty Start Date End Date Will Monroe MD [address] [place] [address] PCP - General Internal Medicine 07/08/24 documented as of this encounter
--- OUTSIDE RECORDS SUMMARY | 2025-04-29 15:00 | XMS_ITS | Clinical Summary ---
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 abdomen MUSCULOSKELETAL: No suspicious focal bony lesion. Nondisplacedposterolateral left rib fracture () IMPRESSION: Interval improvement. Mild interval decrease in size in mass in right infrahilar region. Mild interval improvement in size in a peripheral lesion in the left lowerlobe. -------- FINAL REPORT -------- Dictated By: Dk Navarrete Dictated Date: 04/18/2025 14:12 ET Assigned Physician: Dk Navarrete Reviewed and Electronically Signed By: Dk Navarrete Signed Date: 04/18/2025 14:38 ET Workstation ID: [id number] Transcribed By: Self Edit Transcribed Date: 04/18/2025 14:17 ET Alba Zapien MD IMG CT PROCEDURES Final Result * Rad Onc Msq Treatment Summary (03/18/2025 [...] GY ORDERABLES Final Result Performing Organization Address City/[facility]/ZIP Co de Phone Number MOSAIQ RADIATION ONCOLOGY [...] RADIATION ONCOLOGY 03/14/2025 10:2 4 AM EDT us Physician Radiation Oncology RADIATION [...] platelet clumps identified). 03/11/2025 1:34 PM EDT [facility] Blood Venous blood specimen / Unknown Venipuncture / Unknown 03/11/2025 11:54 AM EDT 03/11/2025 12:14 PM EDT Mihaela Barbour MD LAB BLOOD ORDERABLES Final R esult [facility] [address] [place] [address], * (ABNORMAL) CBC auto differential (03/11/2025 11:54 AM EDT) Only the most recent of6 resultswithin the time period is included. WBC 2.0(L) 4.8 - 10.8 K/mcL LAB HEMETOLOGY METHOD 03/11/2025 12:40 PM EDT [facility] RBC 3.20(L) 3.80 - 4.80 M/mcL LAB HEMETOLOGY METHOD 03/11/2025 12:40 PM EDT [facility] Hemoglobin 10.4(L) 11.5 - 16.0 g/dL LAB HEMETOLOGY METHOD 03/11/2025 12:40 PM EDT [facility] Hematocrit 31.6(L) 35.0 - 47.0 % LAB HEMETOLOGY METHOD 03/11/2025 12:40 PM EDT [facility] MCV 98.4(H) 79.0 - 98.0 FL LAB HEMETOLOGY METHOD 03/11/2025 12:40 PM EDT [facility] MCH 32.4(H) 27.0 - 32.0 pcg LAB HEMETOLOGY METHOD 03/11/2025 12:40 PM EDT [facility] MCHC 32.9 32.0 - 37.0 g/dL LAB HEMETOLOGY METHOD 03/11/2025 12:40 PM EDT [facility] RDW 13.1 11.0 - 15.0 % LAB HEMETOLOGY METHOD 03/11/2025 12:40 PM EDT [facility] Platelets 78(L) 130 - 400 K/mcL LAB HEMETOLOGY METHOD 03/11/2025 12:40 PM EDT [facility] Comment:previously verified by slide MPV 10.5 7.0 - 11.0 FL LAB HEMETOLOGY METHOD 03/11/2025 12:40 PM EDT [facility] NRBC 0.0 <1.0 % LAB HEMETOLOGY METHOD 03/11/2025 12:40 PM EDT [facility] NRBC Absolute 0.00 <0.10 K/mcL LAB HEMETOLOGY METHOD 03/11/2025 12:40 PM EDT [facility] Neutrophils Relative 66.5 % LAB [facility] Lymphocytes Relative 23.4 % LAB HEMETOLOGY METHOD 03/11/2025 12:40 PM EDT [facility] Monocytes Relative 7.6 % LAB HEMETOLOGY METHOD 03/11/2025 12:40 PM EDT [facility] Eosinophils Relative 1.5 % LAB HEMETOLOGY METHOD 03/11/2025 12:40 PM EDT [facility] Basophils Relative 0.5 % LAB HEMETOLOGY METHOD 03/11/2025 12:40 PM EDT [facility] Immature Granulocytes Relative 0.5 % LAB HEMETOLOGY METHOD 03/11/2025 12:40 PM EDT [facility] Neutrophils Absolute 1.31(L) 1.50 - 7.00 K/mcL LAB HEMETOLOGY METHOD 03/11/2025 12:40 PM EDT [facility] Lymphocytes Absolute 0.46(L) 1.00 - 5.00 K/mcL LAB HEMETOLOGY METHOD 03/11/2025 12:40 PM EDT [facility] Monocytes Absolute 0.15(L) 0.20 - 1.00 K/mcL LAB HEMETOLOGY METHOD 03/11/2025 12:40 PM EDT [facility] Eosinophils Absolute 0.03 0.00 - 0.50 K/mcL LAB HEMETOLOGY METHOD 03/11/2025 12:40 PM EDT [facility] Basophils Absolute 0.01 0.00 - 0.20 K/mcL LAB HEMETOLOGY METHOD 03/11/2025 12:40 PM EDT [facility] Immature Granulocytes Absolute 0.01 0.00 - 0.03 K/mcL LAB HEMETOLOGY METHOD 03/11/2025 12:40 PM T [facility] Blood Venous blood specimen / Unknown Venipuncture / Unknown 03/11/2025 11:54 AM EDT 03/11/2025 12:14 PM EDT us Mihaela Barbour MD LAB BLOOD ORDERABLES Final R esult [facility] [address] [place] [address], * (ABNORMAL) Comprehensive metabolic panel (03/11/2025 11:54 AM EDT) Only the most recent of6 resultswithin the time period is included. Sodium 139 133 - 145 mmol/L LAB CHEMISTRY METHOD 03/11/2025 1:22 PM EDT [facility] Potassium 4.5 3.5 - 5.5 mmol/L LAB CHEMISTRY METHOD 03/11/2025 1:22 PM [facility] Chloride 107 96 - 110 mmol/L LAB CHEMISTRY METHOD 03/11/2025 1:22 PM [facility] CO2 29 21 - 32 mmol/L LAB CHEMISTRY METHOD 03/11/2025 1:22 PM [facility] Anion Gap 3 3 - 11 LAB CHEMISTRY METHOD 03/11/2025 1:22 PM [facility] Glucose 104(H) 70 - 100 mg/dL LAB CHEMISTRY METHOD 03/11/2025 1:22 PM [facility] BUN 19 5 - 25 mg/dL LAB CHEMISTRY METHOD 03/11/2025 1:22 PM [facility] Creatinine 0.82 0.50 - 1.10 mg/dL LAB CHEMISTRY METHOD 03/11/2025 1:22 PM [facility] eGFR 74 >=60 mL/min/1. 73m2 LAB CHEMISTRY METHOD 03/11/2025 1:22 PM [facility] Comment:Calculation based on the Chronic Kidney Disease Epidemiology Collaboration (CKD-EPI) equation refit without adjustment for race. BUN/Creatinine Ratio 23.2 LAB CHEMISTRY METHOD 03/11/2025 1:22 PM [facility] Calcium 9.1 8.5 - 10.5 mg/dL LAB CHEMISTRY METHOD 03/11/2025 1:22 PM [facility] AST (SGOT) 14 10 - 42 unit/L LAB CHEMISTRY METHOD 03/11/2025 1:22 PM [facility] ALT (SGPT) 19 10 - 60 unit/L LAB CHEMISTRY METHOD 03/11/2025 1:22 PM [facility] Alkaline Phosphatase 97 42 - 121 unit/L LAB CHEMISTRY METHOD 03/11/2025 1:22 PM [facility] Total Protein 6.7 6.0 - 8.0 g/dL LAB CHEMISTRY METHOD 03/11/2025 1:22 PM EDT [facility] Albumin 3.8 3.2 - 5.0 g/dL LAB CHEMISTRY METHOD 03/11/2025 1:22 PM EDT [facility] Total Bilirubin 0.4 0.0 - 1.4 mg/dL LAB CHEMISTRY METHOD 03/11/2025 1:22 PM EDT [facility] Blood Venous blood specimen / Unknown Venipuncture / Unknown 03/11/2025 11:54 AM EDT 03/11/2025 12:15 PM EDT Mihaela Barbour MD LAB BLOOD ORDERABLES Final R esult [facility] [address] [place] [address], [place] [phone] * Vascular US duplex carotid bilateral (03/11/2025 [...] Signed Date: 03/11/2025 16:06 ET Workstation ID: [id number] Transcribed By: Self Edit Transcribed Date: 03/11/2025 [...] Signed Date: 03/11/2025 16:06 ET Workstation ID: [id number] Transcribed By: Self Edit Transcribed Date: 03/11/2025 [...] GY ORDERABLES Final Result Performing Organization Address City/[facility] Co de Phone Number MOSAIQ RADIATION ONCOLOGY [...] RADIATION ONCOLOGY 03/05/2025 10:1 3 AM EDT Physician Radiation Oncology MD RADIATION ONCOLO GY ORDERABLES Final Result MOSAIQ RADIATION ONCOLOGY * Magnesium (03/04/2025 10:42 AM EDT) Only the most recent of5 resultswithin the time period is included. Magnesium 1.9 1.9 - 2.6 mg/dL LAB CHEMISTRY METHOD 03/04/2025 11:44 AM EDT [facility] Blood Venous blood specimen / Unknown Venipuncture / Unknown 03/04/2025 10:42 AM EDT 03/04/2025 11:08 AM EDT Mihaela Barbour MD LAB BLOOD ORDERABLES Final R esult [facility] [address] [place] [address], [place] [phone] * Rad Onc Msq Treatment Summary (03/04/2025 [...] GY ORDERABLES Final Result Performing Organization Address City/[facility] Co de Phone Number MOSAIQ RADIATION ONCOLOGY [...] 9 AM EDT Physician Radiation Oncology RADIATION ONCBAO [...] RADIATION ONCOLOGY 02/18/2025 10:1 5 AM EDT Physician Radiation Oncology [...] GY ORDERABLES Final Result Performing Organization Address City/[facility]/ZIP Co de Phone Number MOSAIQ RADIATION ONCOLOGY [...] 8:58 AM EDT Physician Radiation Oncology RADIATION ONCOLO [...] RADIATION ONCOLOGY 02/10/2025 10:4 8 AM EDT Physician Radiation Oncology [...] ORDERABLES Final Result MOSAIQ RADIATION ONCOLOGY * XR Shoulder 2+ Views [...] Signed Date: 02/06/2025 17:05 ET Workstation ID: [id number] Transcribed By: Self Edit Transcribed Date: 02/06/2025 [...] Signed Date: 02/06/2025 17:05 ET Workstation ID: [id number] Transcribed By: Self Edit Transcribed Date: 02/06/2025 17:03 ET Will Monroe MD IMG XR PROCEDURES Final [...] Signed Date: 02/06/2025 16:04 ET Workstation ID: [id number] Transcribed By: Self Edit Transcribed Date: 02/06/2025 [...] Date: 02/06/2025 16:02 ET Assigned Physician: Hai Cornoy Reviewed and Electronically Signed By: Hai Conroy Signed Date: 02/06/2025 16:04 ET Workstation ID: [id number] Transcribed By: Self Edit Transcribed Date: 02/06/2025 [...] Msq Treatment Summary (02/04/2025 11:51 AM EDT) Treatment Site Left lung MOSAI [...] GY ORDERABLES Final Result Performing Organization Address City/[facility]/ZIP Co de Phone Number MOSAIQ RADIATION ONCOLOGY * Lipid panel (06/08/2023) LDL/HDL Ratio 2 [...] (World Health Organization Fracture Risk Assessment) [facility] Department of Internal Medicine recommends using [...] alternative screening schedule based on sadiq Franco., [facility] September 08, 2011 for patients [...] (World Health Organization Fracture Risk Assessment) [facility] Department of Internal Medicine recommendsusing National [...] -1.50 and higher), BMD testingevery 15 years us Jess HAMMOND DXA PROCEDURES Final Resu lt * Hm Hepatitis C Screening (05/13/2020) Hepatitis C Screening Abstracted us Historical Provider HEALTH MAINTENANCE Final Result from Last 3 Months or Most Recently Relevant to Health Maintenance Insurance [employer] MEDICARE MEDICAID - [place] Advance Directives Documents on File Type Date Recorded Patient Estimate Clerk Expl anation Advance Directives and Living [...] Agents on File Name Relationship Healthcare Agent [facility] Communication Deangelo Draper Spouse Health Care Agent Care Teams Lang Interpreter Relationship Specialty Start Date End Date Will Monroe MD [address] [place] [phone] PCP - General Internal Medicine 07/08/24
--- OUTSIDE RECORDS SUMMARY | 2025-04-29 15:00 | XMS_ITS | Clinical Summary ---
Author Organization [facility] Address [address] [place] [address] Care Team Providers Care Hot Mill Roller Name Role Phone Unknown Primary Care Provider [phone] Allergies Active Allergy Reactions Criticality Noted Date [...] mg total) by mouth daily. 10 tablet Active Active Problems Problem Noted Date Diagnosed [...] - 1-dose 75+ series) 2023 Influenza Vaccine 03/21/2025 COVID-19 Vaccine ( - 2023-2 5 season) 2025 Hepatitis B Vaccines Aged Out No long er eligible based on patient's age to complete this topic Insurance [facility] MEDICARE Care Teams Hot Mill Roller Relationship Specialty Start Date End Date Unknown Unknow Provider Address PCP - General 02/28/23
--- OUTSIDE RECORDS SUMMARY | 2025-04-29 15:00 | XMS_ITS ---
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 ([facility] V24, [facility] V28) 02/19/2025 Fall 02/06/2025 Small cell lung cancer, left lower lobe ([facility] V24, [facility] V28) 12/26/2024 Cancer Staging:Clinical stage from 01/16/2025:Stage IA2(cT1b, cN0, cM0) - Signed by Alba Zapien MD on 01/16/2025 Rib pain on right side 12/25/2024 Exercise hypoxemia 12/25/2024 Cognitive impairment 12/25/2024 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 12/25/2024 Lung nodule 12/03/2024 Acute respiratory failure wi th hypoxia and hypercapnia ([facility] V24, [facility] V28) 11/25/2024 Pulmonary nodule 10/07/2024 Assessment & [...] Hilar lymphadenopathy 10/07/2024 Osteopenia 09/16/2021 Psoriatic arthritis ([facility] V24, [facility] V28) 1 10/12/2020 Overview (06/12/2024): Josh started [...] disease) stage 3, GFR 30-59 ml/min ([facility] V24, [facility] V28) 03/13/2018 Hyperlipidemia 03/13/2018 Multilevel degenerative disc disease 03/13/2018 Renal calculi 03/13/2018 Overview (06/12/2024): Right, small and nonobstructing Irritable bowel syndrome 03/08/2018 Dermatochalasis of both upper eyelids 11/22/2017 Overview (06/12/2024): Severe bilateral senile ptosis, 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 Nuclear sclerosis of both eyes 11/22/2017 Anxiety 07/24/2017 Overview (06/12/2024): Followed by ADELA Rose, Amari. 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 On Dilantin Thrombocytopenia ([facility] V24) 07/24/2017 Vitamin D deficiency 07/24/2017 Current [...]
--- OUTSIDE RECORDS SUMMARY | 2025-04-29 15:00 | XMS_ITS | Encounter Summary ---
Author Organization [facility] Address [address] [place] [address] Care Team Providers Care Hairspring Inspector Name Role Phone Will Monroe MD Primary Care Provider [phone] Reason for Visit * Reason Comments home health POC Encounter Details Date Type Department Care Team (Late Contact Info) Description 02/14/2025 Billing Patient Not Present Adult [address] [phone] Will Monroe MD [address] [place] [address] Social History Tobacco Use Types Packs/Day Years [...] Description 05/13/2025 10:45 AM EDT Office Visit [facility] Hematology Oncology [address] [place] [phone] Mihaela Barbour MD [address] [place] [address] 07/16/2025 11:00 AM EST Office Visit Adult [facility] [address] [place], [place] [phone] Will Monroe MD [address] [place] [address] 08/20/2025 11:00 AM EST Office Visit Pulmonolgy [facility] [address] [facility] [address] [place] [phone] Jelena Hoff, CARY [address] [place] [phone] 03/03/2026 11:00 AM EDT Appointment [facility] Ultrasound [address] [place] [address] 04/01/2026 11:30 AM EDT Office Visit [facility] [address] [place] [phone] Krupa Garcia MD [address] [place] [phone] documented as of this encounter Visit Diagnoses Not on filedocumented in this encounter Care Teams Hairspring Inspector Relationship Specialty Start Date End Date Will Monroe MD [address] [place] [address] PCP - General Internal Medicine 07/08/24 documented as of this encounter
== END 2025-04-29 12:39 | disposition home or self-care (01) ==
LOC: HO.HOP 12:38
PROVIDERS: PCP Internal Medicine; Visit Provider Clinical Nurse Specialist Psychiatric/Mental Health
DX: R45.89 Other symptoms and signs involving emotional state (principal); F33.1 Major depressive disorder, recurrent, moderate; F43.10 Post-traumatic stress disorder, unspecified
CPT/HCPCS: 99214

== ENCOUNTER 2025-06-03 14:39 | Outpatient (AMB) | payer MEDICARE, SELFPAY ==
--- OUTSIDE RECORDS SUMMARY | 2025-05-28 10:26 | XMS_ITS | Encounter Summary ---
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 (CMS/HCC V24, CMS/HCC V28) Mihaela Barbour MD [address] [place] [address] Phone: tel: fax: [facility] [address] [place] [phone] Phone: tel: fax: Referral ID Status Reason Start Date Expiration Date V isits Requested Visits Authorized [id number] Authorized 05/13/2025 05/13/2026 1 13 Encounter Details Date Type Department Care Team (Latest Contact Info) Description 05/28/2025 10:26 AM EDT - 05/28/2025 11:59 PM EDT Hospital Encounter [address] [phone] 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 (CMS/HCC V24, [facility] V28) (Primary Dx); Small cell lung cancer, left lower lobe ([facility] V24, [facility] V28); 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 ([facility] V24, [facility] V28) Discharge Disposition: Home or Self Care Social History Tobacco Use Types Packs/Day Years Used Date Smoking Tobacco: Former Smokeless Tobacco: Current Comments:E-Cigarettes Alcohol Use Standard Drinks/Week Comments No 0 (1 standard drink = 0.6 oz pur e alcohol) Interpersonal Safety Answer Date Record ed Physical Abuse Unrecognized value 12/10/2024 Verbal Abuse Unrecognized value 12/10/2024 Comments No Sex and Gender Information Value Date Recorded Sex Assigned at Female 10/18/2024 2:01 PM EST Legal Sex Female 1:52 AM EST Gender Identity Female 10/18/2024 2:01 PM EST Sexual Orientation Straight 10/18/2024 2: 01 PM EST documented as of this encounter Last Filed Vital Signs Vital Sign Reading Time Taken Comments Blood Pressure 145/61 05/28/2025 10:35 AM EDT Pulse 65 05/28/2025 10:35 AM EDT Temperature 36.7 C (98 F) 05/28/2025 10:35 AM EDT Respiratory Rate 20 05/28/2025 10:35 AM EDT Oxygen Saturation 100% 05/28/2025 10:35 AM EDT Inhaled Oxygen Concentration - - Weight 72.8 kg (160 lb 6.4 oz) 05/28/2025 10:35 AM EDT Height 162.6 cm (5' 4.02 ) 05/28/2025 10:35 AM E DT Body Mass Index 27.52 05/28/2025 10:35 AM EDT documented in this encounter Medications at [...] time each day. 90 tablet 1 5 diazePAM (VALIUM) 10 mg tablet Take 1 Tablet by mouth every 8 hours as needed for Anxiety. 3 docusate sodium (COLACE) 100 mg capsule Take 1 Cap by mouth 2 times daily for 30 days. 8 fluticasone-salmete rol (ADVAIR DISKUS) 250-50 mcg/dose diskus inhalerIndications: Pulmonary emphysema, unspecified emphysema type Inhale 1 puff by mouth 2 (two) times a day. Inhale 1 Puff into the lungs 2 times daily. 3 each 3 5 furosemide (LASIX) 20 mg tablet Take 1 tablet (20 mg total) by mouth 1 (one) time each day. 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 60 tablet 3 5 simvastatin (ZOCOR) 20 mg tablet Take 1 tablet (20 mg total) by mouth at bedtime. 90 tablet 1 5 tiotropium (Spiriva with HandiHaler) 18 mcg per inhalation capsuleIndications: Pulmonary emphysema, unspecified emphysema type Place 1 capsule (18 mcg total) into inhaler and inhale 1 (one) time each day. 3 each 3 5 traMADoL (ULTRAM) 50 mg tablet Take 1 tablet (50 mg total) by mouth at bedtime as needed for moderate pain. 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 60 tablet 3 05/28/2025 documented in this encounter Discharge Disposition Disposition Code Departure Means Destination Home or Self Care documented in this encounter Progress Notes * Erika Turpin RN - 05/28/2025 10:30 AM EDT 1109: PT arrives this morning with Deangelo for initial maintenance durvalumab infusion. PT reports feeling well at home with continued moderate fatigue and intermittent diarrhea. 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 PT denies issues to system and sts appetite is stable. PT has since lost her hair, denies pain nor itchiness to her scalp. PT continues to use supplemental O2, 2L NC chronically. Stable assessment otherwise. PT is also using [facility] services for massage and Reiki, towhich she enjoys a lot. Allergies and medications reconciled. PIV inserted, +BR noted, flushed and fluids initiated at KVO. PT given tea and cookies, call alonso in reach. 1135: Durvalumab infusion initiated, PT aware of allergy symptoms and to let staff know if she feels anything. PT verbalized understanding, call alonso in reach. 1215: PT tolerating infusion well thus far, denies concerns, eating lunch, call alonso in reach. 1240: Durvalumab infusion completed without concerns. PT waiting 30 minute post observation period,fluids continue at same rate, call alonso in reach. 1320: 30 minute post observation period completed without concerns. PIV flushed and removed, tip intact, dressing applied. PT given next apts reminders via calendar, left unit via wheelchair with , stable at D/C. documented in this encounter Plan of Treatment Upcoming Encounters Date Type Department Care Team (Late st Contact Info) Description 06/24/2025 11:00 AM EST Appointment [facility] [address] [place] [phone] 06/24/2025 3:30 PM EST Appointment [facility] Radiation Oncology [address] [place] [phone] Alba Zapien MD [address] [place] [address] 07/08/2025 11:15 AM EST Office Visit [facility] Hematology Oncology [address] [place] [phone] Mihaela Barbour MD [address] [place] [phone] 07/16/2025 11:00 AM EST Office Visit Adult Medicine [facility] [address] [place] [address] Will Monroe MD [address] [place] [phone] 07/22/2025 11:00 AM EST Appointment [facility] [address] [place] [place] [phone] 08/20/2025 11:00 AM EST Office Visit Pulmonology - [place] [facility] [address] [place] [phone] Jelena Hoff NP [address] [place] [phone] 03/03/2026 11:00 AM EDT Appointment [facility] Ultrasound [address] [place] [phone] 04/01/2026 11:30 AM EDT Office Visit Vascular Surgery - [place] [address] [place] [phone] Krupa Garcia MD [address] [place] [phone] documented as of this encounter Visit Diagnoses Diagnosis 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 (CMS/HCC V24, CMS/HCC V28)- Primary Small cell lung cancer, left lower lobe (CMS/HCC V24, CMS/HCC V28) 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 (CMS/HCC V24, CMS/HCC V28) documented in this encounter Administered Medications Inactive Administered Medications - up to 3 most recent administrations Medication Order MAR Action Action Date Dose Rate Site durvalumab (IMFINZI) 1,500 mg in sodium chloride 280 mL chemo IVPB 1,500 mg, intravenous, at 280 mL/hr, Administer over 60 Minutes, Once, On Mon05/28/25 at 1115, For 1 dose, Administer through a low protein binding 0.2 or 0.22 micron in-line filter.Indications:Small cell lung cancer, left lower lobe (CMS/HCC V24, CMS/HCC V28),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 (CMS/HCC V24, CMS/HCC V28),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 (CMS/HCC V24, CMS/HCC V28) New Bag 05/28/2025 11:35 AM EDT 1,500 mg 280 mL/hr documented in this encounter Orders Medications Ordered That Mikel ht Not Have Been Administered Count Last Ordered Date First Ordered Date acetaminophen (TYLENOL) tablet 650 mg 1 03/2025 albuterol 2.5 mg /3 mL (0.08 3 %) nebulizer solution 2.5 mg 1 05/28/2025 albuterol HFA (PROAIR HFA ; PROVENTIL HFA ; VENTOLIN HFA) 90 mcg/actuation inhaler 2 puff 1 05/28/2025 diphenhydrAMINE (BENADRYL) injection 25 mg 1 05/28/2025 diphenhydrAMINE (BENADRYL) injection 50 mg 1 05/28/2025 EPINEPHrine (ADRENALIN) IM K it - adult 0.3 mg 1 05/28/2025 famotidine (PF) (PEPCID) injection 20 mg 1 05/28/2025 hydrocortisone sod succ (PF) (SOLU-CORTEF) injection 100 mg 1 05/28/2025 meperidine (PF) (DEMEROL) 25 mg/mL injection 25 mg 1 05/28/2025 sodium chloride 0.9 % bolus 500 mL 1 2024 Appointment Requests Count Last Ordered Date Fi rst Ordered Date ONCBCN CALCULATED LENGTH INF USION APPOINTMENT REQUEST 1 1 05/28/2025 documented in this encounter Care Teams Piano Machine Operator Relationship Specialty Start Date End Date Will Monroe MD [address] [place] [phone] PCP - General Internal Medicine 07/08/24 documented as of this encounter
--- NOTE | 2025-06-03 14:22 | A.OFFPSYCH_ITS ---
Intake Intake Visit Reasons: depression Nba Player Required: No Allergies No Known Allergies Allergy (Verified 01/30/24 12:28) Medication List - Last Reconciled 06/03/25 by Angie Neely APRN aripiprazole (Abilify) 5 mg PO DAILY carvedilol 12.5 mg PO BID clonidine HCl 0.1 mg PO BID clopidogrel 75 mg PO DAILY diazepam 10 mg PO TID PRN furosemide 20 mg PO DAILY levofloxacin mg PO mirtazapine (Remeron) 22.5 mg (1.5 x 15 mg) PO BEDTIME neomycin-polymyxin B-dexameth 3.5mg/mL-10,000 unit/mL-0.1 % drps ophthalmic (eye) ondansetron mg PO phenytoin sodium extended 100 mg PO TID simvastatin 20 mg PO BEDTIME tiotropium bromide (Spiriva with HandiHaler) 1 cap inhalation DAILY HPI- Psychiatric Chief Complaint: depression HPI Narrative: Pt follow up done via telehealth; pt reports she is not doing well- she is still very anxious and depressed; she wakes in am very scared. she is having more panic attacks. she is sleeping well with changes to remeron. rShe is getting immunotherapy once a week . she is fearful. She is still playing cards with her social group 3 days a week. She is getting good support from friends and family. Pt is adherent with meds. she denies SI or HI. Past Psychiatric History: No IPLOC. anxiety started at age 3, always scared, constant worried thoughts, depression and anxiety for many years; her mother when she was 2 yo and pt had a difficult life with father and step mother intermittently being available- she and sister were frequently in foster care; pt has been in and out of treatment for years -outpatietn tx only . Subjective Subjective Subjective Medication Compliance: Yes Side effects from medications: No Review of Systems Medical Review of Systems: unchanged Mental Status Exam Mental Status Exam Patient Orientation: Person, Place, Time and Situation Level of Consciousness: Awake Patient Behavior: Appropriate and Crying Mood Description: Anxious and Sad Patient Cognition Impaired: No Ability to Follow Directions: Good Speech Pattern: Clear, Appropriate and Coherent Memory Description: Intact Hallucinations: None Delusions: Not Present Thought Process: Intact and Goal Oriented Thought Content: positive for Intact and positive for Goal Oriented Judgement: Good Telehealth Telehealth Telehealth Platform: Telephone Location of provider rendering services: practice address Location of patient: address on file Patient Identification confirmed using: Name, : Yes Telehealth method: voice only Patient verbally consented to treatment: Yes Patient verbally consented to billing insurance company: Yes Patient informed of any privacy concerns related to visit: Yes Minutes spent on Phone/Video with Pt.: 15 Assessment and Plan Assessment & Plan (1) Anxiety about health: Status: Acute Code(s): R45.89 - Other symptoms and signs involving emotional state (2) Major depressive disorder, recurrent episode, moderate with anxious distress: Status: Acute Code(s): F33.1 - Major depressive disorder, recurrent, moderate (3) PTSD (post-traumatic stress disorder): Status: Acute Code(s): F43.10 - Post-traumatic stress disorder, unspecified Plan increase diazepam to 15mg in am and 10 mg at 3 pm and 10 pm . note: dilantin makes valium less bioavailable and pts need higher doses for efficacy abilify to 5 mg daily remeron to 22.5mg at bedtime advised increase fluids and hold valium if sedation, dizziness, trouble with balance. follow up in 3 weeks Medications: Changed From diazepam 10 mg PO TID PRN 90 tabs 2RF anxiety To diazepam 10 mg orally take 1 & 1/2 tab in morning and one tab at 3pm, and one at 10pm PRN; 135 tabs 2RF anxiety Refilled aripiprazole (Abilify) 5 mg PO DAILY 90 tabs 0RF mirtazapine (Remeron) 22.5 mg (1.5 x 15 mg) PO BEDTIME 135 tabs 0RF Counseling and coordination of Care Pt. Self Management counseling: Maintenance-social rhythm, Nutrition education and improvement, Sleep hygiene and General coping skills Medication management counseling: Effectiveness, Side effects and Adherence Diagnosis and Prognosis Counseling: Accuracy of diagnosis, Prognosis over time, Impact of diagnosis on life functions and Adequacy of current interventions Details: I spent [] minutes reviewing the record, seeing the patient and documenting in the medical record. Counseling provided to the patient/caregiver as outlined below. Addressed patient/caregiver concerns regarding current medication regime including effective adherence. Addressed patient/caregiver concerns regarding diagnosis and prognosis including accuracy of diagnosis, prognosis over time, impact of diagnosis. Addressed patient/caregiver concerns regarding impact of recent stressors. [facility] Social History: lives with ; 2 adult daughters- estranged from one Substance History: none Trauma History: foster care as child- multiple homes Coding Level of Care Code Tele Est Pt Level 3 (08358) Diagnoses Anxiety about health R45.89 Major depressive disorder, recurrent episode, moderate with anxious distress F33.1 PTSD (post-traumatic stress disorder) F43.10
--- OUTSIDE RECORDS SUMMARY | 2025-06-03 17:31 | XMS_ITS | Encounter Summary ---
Author Organization [facility] Address [address] [place] [address] Care Team Providers Care Rental Car Ferry Driver Name Role Phone Will Monroe MD Primary Care Provider [phone] Reason for Visit * Reason Comments home health POC Encounter Details Date Type Department Care Team (Late Contact Info) Description 02/14/2025 Billing Patient Not Present Adult [address] [phone] Will Monroe MD [address] [place] [address] Social History Tobacco Use Types Packs/Day Years [...] Department Care Team (Late Contact Info) Description 06/24/2025 11:00 AM EST Appointment [facility] [address] [place] [phone] 06/24/2025 3:30 PM EST Appointment [facility] Radiation Oncology [address] [place] [phone] Alba Zapien MD [address] [place] [address] 07/08/2025 11:15 AM EST Office Visit [facility] Hematology Oncology [address] [place] [phone] Mihaela Barbour MD [address] [place] [address] 07/16/2025 11:00 AM EST Office Visit Adult [facility] [address] [place], [place] [phone] Will Monroe MD [address] [place] [address] 07/22/2025 11:00 AM EST Appointment [facility] [address] [facility] 2nd [place] [address] 08/20/2025 11:00 AM EST Office Visit Pulmonology - [place] 175 [facility] [address] [place] [phone] Jelena Hoff, CARY [address] [place] [phone] 03/03/2026 11:00 AM EDT Appointment [facility] Ultrasound [address] [place] [phone] 04/01/2026 11:30 AM EDT Office Visit Vascular Surgery - [place] [address] [place] [phone] Krupa Garcia MD [address] [place] [phone] documented as of this encounter Visit Diagnoses Not on filedocumented in this encounter Care Teams Rental Car Ferry Driver Relationship Specialty Start Date End Date Will Monroe MD [address] [place] [phone] PCP - General Internal Medicine 07/08/24 documented as of this encounter
--- OUTSIDE RECORDS SUMMARY | 2025-06-03 17:31 | XMS_ITS | Clinical Summary ---
Author Organization [facility] Address [address] [place] [address] Care Team Providers Care Felt Hat Inspector And Packer Name Role Phone Unknown Primary Care Provider [phone] Allergies Active Allergy Reactions Criticality Noted Date [...] patient's age to complete this topic Insurance [facility] Care Teams Felt Hat Inspector And Packer Relationship Specialty Start Date End Date Unknown Unknow Provider Address PCP - General 02/28/23
--- OUTSIDE RECORDS SUMMARY | 2025-06-03 17:31 | XMS_ITS | Encounter Summary ---
Author Organization [facility] Address [address] [place] [address] Care Team Providers Care Adult Specialist Name Role Phone Will Monroe MD Primary Care Provider [phone] Reason for Visit * Reason Onset Date Comments Advice Only 05/30/2025 Encounter Details Date Type Department Care Team (Late st Contact Info) Description 05/30/2025 Telephone Adult Medicine [address] [phone] Will Monroe MD [address] [place] [address] Social History Tobacco Use Types Packs/Day Years [...] as of this encounter Progress Notes * Lucila Thompson RN - 06/03/2025 9:43 AM EDT Called to inform Yadira from [facility]; Patient with hx of stroke > one year ago patient may come off the plavix x [address] Monroe. Called pt's and informed him of the same. * Will Monroe MD - 06/03/2025 9:31 AM EDT Patient with hx of stroke > one year ago patient may come off the plavix x 5 days * Isa Sheikh - 05/30/2025 3:45 PM EDT Patient calling to inquire if she needs to hold off on her blood thinners so she can get her tooth taken care of. * Keyon Dumont - 05/30/2025 2:02 PM EDT Call from [facility] stating that patient has to have emergency surgery today , states that patient is on a blood thinner , would like a call back to know what to do Yadira @ [facility] ext 2 documented in this encounter Plan of Treatment Upcoming Encounters Date Type Department Care Team (Late st Contact Info) Description 06/24/2025 11:00 AM EST Appointment [facility] [address] [place] [phone] 06/24/2025 3:30 PM EST Appointment [facility] Radiation Oncology [address] [place] [phone] Alba Zapien MD [address] [place] [phone] 07/08/2025 11:15 AM EST Office Visit [facility] Hematology Oncology [address] [place] [phone] Mihaela Barbour MD [address] [place] [address] 07/16/2025 11:00 AM EST Office Visit Adult Medicine [facility] [address] [place], [place] [phone] Will Monroe MD [address] [place] [address] 07/22/2025 11:00 AM EST Appointment [facility] [address] [facility] 2nd [place] [phone] 08/20/2025 11:00 AM EST Office Visit Pulmonology - [place] [address] [facility] [address] [place] [phone] Jelena Hoff, CARY [address] [place] [phone] 03/03/2026 11:00 AM EDT Appointment [facility] Ultrasound [address] [place] [phone] 04/01/2026 11:30 AM EDT Office Visit Vascular Surgery - [place] [address] [place] [phone] Krupa Garcia MD [address] [place] [phone] documented as of this encounter Visit Diagnoses Not on filedocumented in this encounter Care Teams Adult Specialist Relationship Specialty Start Date End Date Will Monroe MD [address] [place] [address] PCP - General Internal Medicine 07/08/24 documented as of this encounter
--- OUTSIDE RECORDS SUMMARY | 2025-06-03 17:31 | XMS_ITS | Encounter Summary ---
Author Organization [facility] Address [address] [place] [address] Care Team Providers Care Spare Parts Clerk Name Role Phone Will Monroe MD Primary Care Provider [phone] Encounter Details Date Type Department Care Team (Late st Contact Info) Description 05/30/2025 Telephone Adult Medicine [address] [phone] Mihaela Barbour MD [address] [place] [address] Social History Tobacco Use Types Packs/Day Years [...] as of this encounter Progress Notes * Vivek Noonan - 05/30/2025 2:10 PM EDT Informed Darcy of above msg, she will let Yadira know. * Lindy Ocampo DO - 05/30/2025 1:56 PM EDT Plavix prescribed by pcp needs to call that office. * Vivek Noonan - 05/30/2025 1:53 PM EDT Yadira from [facility] calls informing pt will be having a tooth extraction. Since she is taking plavix, Yadira is looking for instructions/recommendations regarding the blood thinner. Aware MD is out of the office. May be reached at [phone] ext [phone]. * Meghann Welsh - 05/30/2025 12:14 PM EDT Letter faxed * Meghann Welsh - 05/30/2025 10:28 AM EDT Patient is having emergency dental procedure today at 1 and they are requesting clearance letter befaxed to them at [phone] documented in this encounter Plan of Treatment Upcoming Encounters Date Type Department Care Team (Late st Contact Info) Description 06/24/2025 11:00 AM EST Appointment [facility] [address] [place] [phone] 06/24/2025 3:30 PM EST Appointment [facility] Radiation Oncology [address] [place] [phone] Alba Zapien MD [address] [place] [phone] 07/08/2025 11:15 AM EST Office Visit [facility] Hematology Oncology [address] [place] [phone] Mihaela Barbour MD [address] [place] [address] 07/16/2025 11:00 AM EST Office Visit Adult Medicine [facility] [address] [place], [place] [phone] Will Monroe MD [address] [place] [address] 07/22/2025 11:00 AM EST Appointment [facility] [address] [place] [phone] 08/20/2025 11:00 AM EST Office Visit Pulmonology - [place] [address] [place] [phone] Jelena Hoff NP [address] [place] [phone] 03/03/2026 11:00 AM EDT Appointment [facility] Ultrasound [address] [place] [phone] 04/01/2026 11:30 AM EDT Office Visit Vascular Surgery - [place] [address] [place] [phone] Krupa Garcia MD [address] [place] [phone] documented as of this encounter Visit Diagnoses Not on filedocumented in this encounter Care Teams Spare Parts Clerk Relationship Specialty Start Date End Date Will Monroe MD [address] [place] [address] PCP - General Internal Medicine 07/08/24 documented as of this encounter
--- OUTSIDE RECORDS SUMMARY | 2025-06-03 17:31 | XMS_ITS | Clinical Summary ---
Author Organization [facility] Address [address] [place] [address] Phone Care Team Providers Care Clinical Engineering Manager Name Role Phone Will Monroe MD Primary Care Provider [phone] Allergies Active Allergy Reactions Criticality Noted Date [...] total) by mouth at bedtime. 024 Active fluticasone-salme terol (ADVAIR DISKUS) 250-50 mcg/dose diskus inhalerIndication s:Pulmonary emphysema, unspecified emphysema type Inhale 1 puff by mouth 2 (two) times a day. Inhale 1 Puff into the lungs 2 times daily. 3 each 3 025 Active tiotropium (Spiriva with HandiHaler) 18 mcg per inhalation capsuleIndication s:Pulmonary emphysema, unspecified emphysema type Place 1 capsule (18 mcg total) into inhaler and inhale 1 (one) time each day. 3 each 3 025 Active phenytoin (DILANTIN) 100 mg ER capsuleIndication s:Seizure disorder ([facility] V24, [facility] V28) Take 1 capsule (100 mg total) by mouth 2 (two) times a day. 270 capsule 025 Active cloNIDine (CATAPRES) 0.1 mg tablet [...] s:Chronic obstructive pulmonary disease, unspecified COPD type ([facility] V24, [facility] V28) Inhale 2 puffs by mouth every 4 (four) hours if needed for wheezing or shortness of breath. 36 g 5 025 2025 Active albuterol 2.5 mg /3 mL (0.083 %) nebulizer solution Take 3 mL (2.5 mg total) by nebulization every 4 (four) hours if needed for wheezing. 75 mL 11 025 2024 Active traMADoL (ULTRAM) 50 mg tablet Take 1 tablet (50 mg total) by mouth at bedtime as needed for moderate pain. Max Daily Amount: 50 mg 7 tablet Active Additional Information Patient not taking.Reason: Other (therapy completed), Reported on 05/28/2025 simvastatin (ZOCOR) 20 mg tablet Take 1 tablet (20 mg total) by mouth at bedtime. 90 tablet 1 Active clopidogreL (PLAVIX) 75 mg tablet Take 1 tablet (75 mg total) by mouth 1 (one) time each day. 90 tablet 1 Active furosemide (LASIX) 20 mg tablet Take 1 tablet (20 mg total) by mouth 1 (one) time each day. 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 60 tablet 2 Active furosemide (LASIX) 20 mg tablet Take 1 tablet (20 mg total) by mouth 1 (one) time each day. 30 each 025 2024 Discontinued(R eorder) dexAMETHasone (DECADRON) 4 mg tabletIndications :Small cell carcinoma of lung, unspecified laterality, unspecified part of lung (CMS/HCC V24, CMS/HCC V28) Take 8 mg (2 tablets) once daily, starting the day after treatment, for two days. Take in the morning with food. 30 tablet 1 025 2024 Discontinued prochlorperazine (COMPAZINE) 10 mg tabletIndications :Small cell carcinoma of lung, unspecified laterality, unspecified part of lung (CMS/[facility] V24, CMS/HCC V28) Take 1 tablet (10 mg total) by mouth every 6 (six) hours if needed for nausea or vomiting. 60 tablet 3 025 2024 Discontinued Active Problems Problem Noted Date Diagnosed Date Metastasis from malignant ne oplasm of left lung (CMS/[facility] V24, CMS/HCC V28) 05/13/2025 Pulmonary emphysema (CMS/HCC V24, CMS/HCC V28) 0 02/19/2025 Former heavy cigarette smoker (20-39 per day) 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 ([facility] V24, [facility] V28) 02/19/2025 Fall 02/06/2025 Small cell lung cancer, left lower lobe ([facility] V24, [facility] V28) 12/26/2024 Cancer Staging:Clinical stage from 01/16/2025:Stage IA2(cT1b, cN0, cM0) - Signed by Alba Zapien MD on 01/16/2025 Rib pain on right side 12/25/2024 Exercise hypoxemia 12/25/2024 Cognitive impairment 12/25/2024 CAD in [place] artery 12/25/2024 Lung nodule 12/03/2024 Acute respiratory failure wi th hypoxia and hypercapnia ([facility] V24, [facility] V28) 11/25/2024 Pulmonary nodule 10/07/2024 Assessment & [...] Hilar lymphadenopathy 10/07/2024 Osteopenia 09/16/2021 Psoriatic arthritis (CMS/[facility] V24, CMS/[facility] V28) 1 10/12/2020 Overview (06/12/2024): Josh started [...] kidney disease) stage 3, GFR 30-59 ml/min ([facility] V24, CMS/[facility] V28) 03/13/2018 Hyperlipidemia 03/13/2018 Multilevel degenerative disc disease 03/13/2018 Renal calculi 03/13/2018 Overview (06/12/2024): Right, small and nonobstructing Irritable bowel syndrome 03/08/2018 Dermatochalasis of both upper eyelids 11/22/2017 Overview (06/12/2024): Severe bilateral senile ptosis, 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 Nuclear sclerosis of both eyes 11/22/2017 Anxiety 07/24/2017 Overview (06/12/2024): Followed by ADELA Rose, Amari. 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 On Dilantin Thrombocytopenia ([facility] V24) 07/24/2017 Vitamin D deficiency 07/24/2017 Encounters Date Type Department Care Team Description 06/02/2025 Telephone Vascular Surgery - [place] [address] [place] [phone] Krupa Garcia MD 05/30/2025 Telephone Adult Medicine [address] [phone] Will Monroe MD 05/30/2025 Telephone Adult Medicine [address] [phone] Mihaela Barbour MD 05/28/2025 10:26 AM EDT - 05/28/2025 11:59 PM EDT Hospital Encounter [facility] Infusion Center [address] [facility] 2nd [place] [address] 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 (CMS/HCC V24, CMS/HCC V28) (Primary Dx); Small cell lung cancer, left lower lobe (CMS/HCC V24, CMS/HCC V28); 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 (CMS/HCC V24, CMS/HCC V28) Discharge Disposition: Home or Self Care 05/20/2025 12:29 PM EDT - 05/20/2025 11:59 PM EDT Hospital Encounter [facility] PET Scan [address] [place] [address] Small cell lung cancer, left lower lobe (CMS/HCC V24, CMS/HCC V28) Discharge Disposition: Home or Self Care 05/13/2025 10:45 AM EDT Office Visit [facility] Hematology Oncology [address] [place] [phone] Mihaela Brabour MD Small cell lung cancer, left lower lobe (CMS/HCC V24, CMS/HCC V28) (Primary Dx); 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 (CMS/HCC V24, CMS/HCC V28) 05/08/2025 Telephone Adult Medicine [address] [phone] Will Monroe MD 04/29/2025 2:53 PM EDT - 04/29/2025 11:59 PM EDT Hospital Encounter [facility] Radiation Oncology [address] [place] [phone] Alba Zapien MD Small cell lung cancer, left lower lobe ([facility]/HCC V24, CMS/HCC V28) (Primary Dx) Discharge Disposition: Home or Self Care 04/25/2025 Telephone Adult Medicine [address] [phone] Will Monroe MD 04/15/2025 12:42 PM EDT - 04/15/2025 11:59 PM EDT Hospital Encounter [facility] CT Scan [address] [place] [address] Small cell lung cancer, left lower lobe ([facility] V24, [facility] V28) Discharge Disposition: Home or Self Care 04/15/2025 11:00 AM EDT Office Visit [facility] Hematology Oncology [address] [place] [phone] Mihaela Barbour MD Small cell carcinoma of left lung, unspecified part of lung ([facility] V24, [facility] V28) (Primary Dx); 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 [address] [facility] [address] [place] [phone] Krupa Garcia MD Occlusion of left carotid artery (Primary Dx); Arteriosclerosis of both carotid arteries; Asymptomatic bilateral carotid artery stenosis 03/24/2025 10:00 AM EDT Consult Orthopedic Surgery [facility] [address] [facility] [address] [place] [phone] Ko Meehan DPM Chemotherapy-induc ed neuropathy ([facility] V24) (Primary Dx); Burning sensation of feet; Dermatophytosis of nail; Pain in toe of right foot; Pain in toe of left foot; Hammer toe of left foot; Acquired hammer toe of right foot; Acquired hallux valgus of right foot; Acquired hallux valgus of left foot 03/18/2025 10:20 AM EDT - 03/18/2025 11:59 PM EDT Hospital Encounter [facility] Radiation Oncology [address] [place] [phone] Rowean Garibay NP Small cell lung cancer, left lower lobe ([facility] V24, [facility] V28) (Primary Dx) Discharge Disposition: Home or Self Care 03/18/2025 10:15 AM EDT - 03/18/2025 11:59 PM EDT Hospital Encounter [facility] Radiation Oncology [address] [place] [phone] Discharge Disposition: Home or Self Care 03/17/2025 10:08 AM EDT - 03/17/2025 11:59 PM EDT Hospital Encounter [facility] Radiation Oncology [address] [place] [phone] Discharge Disposition: Home or Self Care 03/14/2025 10:20 AM EDT - 03/14/2025 11:59 PM EDT Hospital Encounter [facility] Radiation Oncology [address] [place] [phone] Alba Zapien MD Small cell lung cancer, left lower lobe (CMS/HCC V24, CMS/HCC V28) (Primary Dx) Discharge Disposition: Home or Self Care 03/14/2025 10:07 AM EDT - 03/14/2025 11:59 PM EDT Hospital Encounter [facility] Radiation Oncology [address] [place] [phone] Discharge Disposition: Home or Self Care 03/13/2025 10:08 AM EDT - 03/13/2025 11:59 PM EDT Hospital Encounter [facility] Radiation Oncology [address] [place] [phone] Discharge Disposition: Home or Self Care 03/12/2025 10:30 AM EDT - 03/12/2025 11:59 PM EDT Hospital Encounter [facility] Infusion Center [address] [place] [phone] Mihaela Barbour MD Small cell carcinoma of lung, unspecified laterality, unspecified part of lung (CMS/HCC V24, CMS/HCC V28) (Primary Dx) Discharge Disposition: Home or Self Care 03/12/2025 10:07 AM EDT - 03/12/2025 11:59 PM EDT Hospital Encounter [facility] Radiation Oncology [address] [place] [phone] Discharge Disposition: Home or Self Care 03/11/2025 10:48 AM EDT - 03/11/2025 11:59 PM EDT Hospital Encounter [facility] Ultrasound [address] [place] [phone] Carotid stenosis Discharge Disposition: Home or Self Care 03/11/2025 9:52 AM EDT - 03/11/2025 11:59 PM EDT Hospital Encounter [facility] Radiation Oncology [address] [place] [phone] Discharge Disposition: Home or Self Care 03/10/2025 9:54 AM EDT - 03/10/2025 11:59 PM EDT Hospital Encounter [facility] Radiation Oncology [address] [place] [phone] Discharge Disposition: Home or Self Care 03/07/2025 10:05 AM EDT - 03/07/2025 11:59 PM EDT Hospital Encounter [facility] Radiation Oncology [address] [place] [phone] Alba Zapien MD Small cell lung cancer, left lower lobe (CMS/HCC V24, CMS/HCC V28) (Primary Dx) Discharge Disposition: Home or Self Care 03/07/2025 9:54 AM EDT - 03/07/2025 11:59 PM EDT Hospital Encounter [facility] Radiation Oncology [address] [place] [phone] Discharge Disposition: Home or Self Care 03/06/2025 10:30 AM EDT Office Visit [facility] Hematology Oncology [address] [place] [phone] Mihaela Barbour MD 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 (CMS/HCC V24, CMS/HCC V28) (Primary Dx); Small cell lung cancer, left lower lobe (CMS/HCC V24, CMS/HCC V28) 03/06/2025 9:35 AM EDT - 03/06/2025 11:59 PM EDT Hospital Encounter [facility] Radiation Oncology [address] [place] [phone] Discharge Disposition: Home or Self Care 03/05/2025 10:22 AM EDT - 03/05/2025 11:59 PM EDT Hospital Encounter [facility] Infusion Center [address] [phone] Mihaela Barbour MD Small cell lung cancer, left lower lobe (CMS/HCC V24, CMS/HCC V28) (Primary Dx) Discharge Disposition: Home or Self Care 03/05/2025 9:57 AM EDT - 03/05/2025 11:59 PM EDT Hospital Encounter [facility] Radiation Oncology [address] [place] [phone] Discharge Disposition: Home or Self Care 03/04/2025 9:54 AM EDT - 03/04/2025 11:59 PM EDT Hospital Encounter [facility] Radiation Oncology [address] [place] [phone] Discharge Disposition: Home or Self Care 03/03/2025 9:58 AM EDT - 03/03/2025 11:59 PM EDT Hospital Encounter [facility] Radiation Oncology [address] [place] [phone] Discharge Disposition: Home or Self Care from Last 3 Months Immunizations Immunization Administration Dates Next Due Influenza Quadravalent, MDCK , 0.5ml, preservative free (Flucelvax) 6mo and older 07/24/2018 Influenza trivalent, 0.5mL ( Fluad) 65yo and older 06/08/2023,05/17/2022,06/15/2021,05/23,07/23/2019 Influenza trivalent, with pr eservative (Fluzone; Afluria) 6mo and older 05/23/2020 Influenza, Unspecified 06/04/2021 iPeen SARS-CoV-2 COVID-19, mRNA, LNP-S, preservative free 12/25/2020 [...] TONSILLECTOMY OTHER SURGICAL HISTORY 09/2016 Left PROCEDURE: OR OPTX ILIAC TUBRST AVLS/WING FX FIXJ IF PRFRMD; COMMENT: s/p pelvic repair, [facility] UPPER GASTROINTESTINAL ENDOSCOPY 10/03/2018 PROCEDURE: UPPER GI [...] kidney disease) stage 3, GFR 30-59 ml/min ([facility] V24, [facility] V28) 03/13/2018 DX:CKD (chronic kidney disea se) stage 3, GFR 30-59 ml/min ([facility]) COPD (chronic obstructive pu lmonary disease) ([facility] V24, [facility] V28) 07/24/2017 DX:COPD (chronic o bstructive pulmonary disease) ([facility]); COMMENT: Chronic bronchitis Depression 07/24/2017 [...] COMMENT: Right, small and nonobstructing Seizure disorder ([facility] V2 4, [facility] V28) 07/24/2017 DX:Seizure disorder ([facility]); C OMMENT: 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 On Dilantin Thrombocytopenia ([facility] V24) 07/24/2017 D X:Thrombocytopenia ([facility]) Vitamin D deficiency 07/24/2017 DX:Vitamin [...] Mass Index 27.52 05/28/2025 10:35 AM EDT Plan of Treatment Upcoming Encounters Date Type Department Care Team (Late st Contact Info) Description 06/24/2025 11:00 AM EST Appointment [facility] Infusion Center [address] [place] [phone] 06/24/2025 3:30 PM EST Appointment [facility] Radiation Oncology [address] [place] [phone] Alba Zapien MD [address] [place] [phone] 07/08/2025 11:15 AM EST Office Visit [facility] Hematology Oncology [address] [place] [phone] Mihaela Barbour MD [address] [place] [phone] 07/16/2025 11:00 AM EST Office Visit Adult Medicine [address] [phone] Will Monroe MD [address] [place] [address] 07/22/2025 11:00 AM EST Appointment [facility] [address] [facility] 2nd [place] [phone] 08/20/2025 11:00 AM EST Office Visit Pulmonology - [place] [address] [facility] [address] [place] [phone] Jelena Hoff NP [address] [place] [phone] 03/03/2026 11:00 AM EDT Appointment [facility] Ultrasound [address] [place] [phone] 04/01/2026 11:30 AM EDT Office Visit Vascular Surgery - [place] [address] [place] [phone] Krupa Garcia MD [address] [place] [phone] Health Maintenance Due Date Last Done Comments Zoster Vaccines (1 of 2) 1969 Colorectal Cancer Screening: Stool Based Tests (FOBT/FIT) 07/30/2022 Medicare Annual Wellness Visit 07/30/2022 Social Influencers of Health Screening 07/30/2022 RSV Immunization Adult Patients (1 - 1-dose 75+ series) 2023 Depression Screening 08/21/2024 COVID-19 Vaccine ( - season) 2025 09/08/2021, 12/25/2020, 12/04/2020 Influenza Vaccine (#1) 2025 , 06/08/2023, 05/17/2022, Additional history exists DTaP,Tdap,and Td Vaccines (2 - Td or Tdap) 01/02/2026 01/03/2016 Hypertension/CHF/CAD Annual BMP Blood Test 05/27/2026 05/27/2025, 03/11/2025, 03/04/2025, Additional history exists Falls Risk Assessment 05/28/2026 05/28/2025 Cholesterol Screening (Lipid Panel) 06/08/2028 06/08/2023 Osteoporosis [...] this topic Medical Devices Implanted Type Area Clinical Operations Consultant Device Identifier Shelf Expiration Date Model / Serial / Lot Marker Cobra Superlock - Sn/A - [id number] Implanted:Qt y: 1 on 11/20/2024 by Laura Avalos MD at [facility] Implants Right: Lung [employer] [id number] 06/26/2028 [id number] / N/A / [id number] Description:RIGHT UPPER LOBE Marker Cobra Superlock - Sn/A - [id number] Implanted:Qt y: 1 on 11/20/2024 by Laura Avalos MD at [facility] Implants Left: Lung [employer] 08/07/2028 [id number] / N/A / [id number] Description:LEFT LOWER LOBE Procedures Procedure Name Priority Date/Time Associated Diagnosis Comments CBC WITH AUTO DIFFERENTIAL Routine 05/27/2025 1:11 PM EDT Lung cancer (CMS/HCC V24, CMS/HCC V28) THYROXINE FREE Routine 05/27/2025 1:11 PM EDT Small cell lung cancer, left lower lobe (CMS/HCC V24, CMS/HCC V28) 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 (CMS/HCC V24, CMS/HCC V28) 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 (CMS/HCC V24, CMS/HCC V28) THYROID STIMULATING HORMONE Routine 05/27/2025 1:11 PM EDT Small cell lung cancer, left lower lobe (CMS/HCC V24, CMS/HCC V28) 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 (CMS/HCC V24, CMS/HCC V28) 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 (CMS/HCC V24, CMS/HCC V28) COMPREHENSIVE METABOLIC PANEL Routine 05/27/2025 1:11 PM EDT Lung cancer (CMS/HCC V24, CMS/HCC V28) CBC AND DIFFERENTIAL Routine 05/27/2025 1:11 PM EDT Lung cancer (CMS/HCC V24, CMS/HCC V28) PET CT SKULL TO MID THIGH SUBSEQUENT Routine 05/20/2025 2:39 PM EDT Small cell lung cancer, left lower lobe (CMS/HCC V24, CMS/HCC V28) CT CHEST W CONTRAST Routine 04/15/2025 1 [...] TREATMENT SUMMARY Routine 03/03/2025 10:25 AM EDT LIPID PANEL Routine 06/08/2023 DXA BONE DENSITY STUDY 1+ SITS AXIAL SKEL Routine 09/16/2021 11:06 AM EST Encounter for screening for osteoporosis HEPATITIS C SCREENING Routine 05/13/2020 from Last 3 Months or Most Recently Relevant to Health Maintenance Results * (ABNORMAL) CBC auto differential (05/27/2025 1:11 PM EDT) Only the most recent of3 resultswithin the time period is included. WBC 5.2 4.8 - 10.8 K/mcL LAB HEMETOLOGY [facility] RBC 3.70(L) 3.80 - 4.80 M/mcL LAB HEMETOLOGY METHOD 05/27/2025 2:01 [facility] Hemoglobin 12.7 11.5 - 16.0 g/dL LAB HEMETOLOGY METHOD 05/27/2025 2:01 [facility] Hematocrit 38.8 35.0 - 47.0 % LAB HEMETOLOGY METHOD 05/27/2025 2:01 PM [facility] MCV 104.0(H) 79.0 - 98.0 FL LAB HEMETOLOGY METHOD 05/27/2025 2:01 PM [facility] MCH 34.0(H) 27.0 - 32.0 pcg LAB HEMETOLOGY METHOD 05/27/2025 2:01 PM [facility] MCHC 32.7 32.0 - 37.0 g/dL LAB HEMETOLOGY METHOD 05/27/2025 2:01 PM [facility] RDW 11.7 11.0 - 15.0 % LAB HEMETOLOGY METHOD 05/27/2025 2:01 PM [facility] Platelets 121(L) 130 - 400 K/mcL LAB HEMETOLOGY METHOD 05/27/2025 2:01 PM [facility] MPV 10.8 7.0 - 11.0 FL LAB HEMETOLOGY METHOD 05/27/2025 2:01 PM [facility] NRBC 0.0 <1.0 % LAB HEMETOLOGY METHOD 05/27/2025 2:01 PM [facility] NRBC Absolute 0.00 <0.10 K/mcL LAB HEMETOLOGY METHOD 05/27/2025 2:01 PM [facility] Neutrophils Relative 68.7 % LAB HEMETOLOGY METHOD 05/27/2025 2:01 PM [facility] Lymphocytes Relative 18.4 % LAB HEMETOLOGY METHOD 05/27/2025 2:01 PM [facility] Monocytes Relative 7.8 % LAB HEMETOLOGY METHOD 05/27/2025 2:01 PM [facility] Eosinophils Relative 3.9 % LAB HEMETOLOGY METHOD 05/27/2025 2:01 PM [facility] Basophils Relative 0.6 % LAB HEMETOLOGY METHOD 05/27/2025 2:01 PM [facility] Immature Granulocytes Relative 0.6 % LAB HEMETOLOGY METHOD 05/27/2025 2:01 PM [facility] Neutrophils Absolute 3.55 1.50 - 7.00 K/mcL LAB HEMETOLOGY METHOD 05/27/2025 2:01 PM EDT [facility] Lymphocytes Absolute 0.95(L) 1.00 - 5.00 K/mcL LAB HEMETOLOGY METHOD 05/27/2025 2:01 PM EDT [facility] Monocytes Absolute 0.40 0.20 - 1.00 K/mcL LAB HEMETOLOGY METHOD 05/27/2025 2:01 PM EDT [facility] Eosinophils Absolute 0.20 0.00 - 0.50 K/[facility] LAB HEMETOLOGY METHOD 05/27/2025 2:01 PM EDT [facility] Basophils Absolute 0.03 0.00 - 0.20 K/mcL LAB HEMETOLOGY METHOD 05/27/2025 2:01 PM EDT [facility] Immature Granulocytes Absolute 0.03 0.00 - 0.03 K/mcL LAB HEMETOLOGY METHOD 05/27/2025 2:01 PM EDT [facility] Blood Venous blood specimen / Unknown Venipuncture / Unknown 05/27/2025 1:11 PM EDT 05/27/2025 1:34 PM EDT us Mihaela Barbour MD LAB BLOOD ORDERABLES Final R esult Performing Organization Address City/[facility]/ZIP Co de Phone Number [facility] [address] [place] [address], * TSH (05/27/2025 1:11 PM EDT) TSH 1.26 0.40 - 4.00 mcIU/mL LAB CHEMISTRY METHOD 05/27/2025 3:50 PM EDT [facility] Blood Venous blood specimen / Unknown Venipuncture / Unknown 05/27/2025 1:11 PM EDT 05/27/2025 1:34 PM EDT us Mihaela Barbour MD LAB BLOOD ORDERABLES Final R esult [facility] [address] [place] [address], * Thyroxine free (05/27/2025 1:11 PM EDT) Free T4 1.25 0.70 - 1.80 ng/dL LAB CHEMISTRY METHOD 05/27/2025 3:50 PM EDT [facility] Blood Venous blood specimen / Unknown Venipuncture / Unknown 05/27/2025 1:11 PM EDT 05/27/2025 1:34 PM EDT Mihaela Barbour MD LAB BLOOD ORDERABLES Final R esult Performing Organization Address City/[facility]/ZIP Co de Phone Number [facility] [address] [place] [address], * (ABNORMAL) Comprehensive metabolic panel (05/27/2025 1:11 PM EDT) Only the most recent of3 resultswithin the time period is included. Pathologist [facility] Sodium 139 133 - 145 mmol/L LAB CHEMISTRY METHOD 05/27/2025 2:58 PM T [facility] Potassium 4.5 3.5 - 5.5 mmol/L LAB CHEMISTRY METHOD 05/27/2025 2:58 PM EDT [facility] Chloride 105 96 - 110 mmol/L LAB CHEMISTRY METHOD 05/27/2025 2:58 PM EDT [facility] CO2 28 21 - 32 mmol/L LAB CHEMISTRY METHOD 05/27/2025 2:58 PM EDT [facility] Anion Gap 6 3 - 11 LAB CHEMISTRY METHOD 05/27/2025 2:58 PM [facility] Glucose 104(H) 70 - 100 mg/dL LAB CHEMISTRY METHOD 05/27/2025 2:58 PM EDT [facility] BUN 13 5 - 25 mg/dL LAB CHEMISTRY METHOD 05/27/2025 2:58 PM [facility] Creatinine 1.05 0.50 - 1.10 mg/dL LAB CHEMISTRY METHOD 05/27/2025 2:58 PM [facility] eGFR 55(L) >=60 mL/min/1. 73m2 LAB CHEMISTRY METHOD 05/27/2025 2:58 PM [facility] Comment:Calculation based on the Chronic Kidney Disease Epidemiology Collaboration (CKD-EPI) equation refit without adjustment for race. BUN/Creatinine Ratio 12.4 LAB CHEMISTRY METHOD 05/27/2025 2:58 PM [facility] Calcium 9.0 8.5 - 10.5 mg/dL LAB CHEMISTRY METHOD 05/27/2025 2:58 PM [facility] AST (SGOT) 24 10 - 42 unit/L LAB CHEMISTRY METHOD 05/27/2025 2:58 PM [facility] ALT (SGPT) 21 10 - 60 unit/L LAB CHEMISTRY METHOD 05/27/2025 2:58 PM [facility] Alkaline Phosphatase 130(H) 42 - 121 unit/L LAB CHEMISTRY METHOD 05/27/2025 2:58 PM [facility] Total Protein 6.9 6.0 - 8.0 g/dL LAB CHEMISTRY METHOD 05/27/2025 2:58 PM [facility] Albumin 3.5 3.2 - 5.0 g/dL LAB CHEMISTRY METHOD 05/27/2025 2:58 PM [facility] Total Bilirubin 0.3 0.0 - 1.4 mg/dL LAB CHEMISTRY METHOD 05/27/2025 2:58 PM [facility] Blood Venous blood specimen / Unknown Venipuncture / Unknown 05/27/2025 1:11 PM EDT 05/27/2025 1:34 PM EDT us Mihaela U Angle MD LAB BLOOD ORDERABLES Final R esult [facility] [address] [place] [address], * PET CT Skull to Mid Thigh Subsequent (05/20/2025 2:39 PM EDT) Anatomical Region Laterality Modality Body Radiographic Mireya ging 05/27/2025 9:29 AM EDT Impressions 05/27/2025 10:34 AM EDT 1. Interval decrease in size and FDG activity of right upper lobe and left lower lobe lung nodules 2. New left ninth posterior rib fracture 3. No significant FDG avid lymphadenopathy Please note: The CT was acquired at a low radiation dose settings. The images are of nondiagnostic quality and used solely for purposes of attenuation correction and slice localization for the PET scan. If a diagnostic CT study is desired it must be ordered separately. -------- FINAL REPORT -------- Dictated By: Edelmira Yu Dictated Date: 05/27/2025 09:29 ET Assigned Physician: Edelmira Yu Reviewed and Electronically Signed By: Edelmira Yu Signed Date: 05/27/2025 10:34 ET Workstation ID: [id number] Transcribed By: Self Edit Transcribed Date: 05/27/2025 09:29 ET Narrative 05/27/2025 10:34 AM EDT INDICATION: Lung cancer right upper and left lower lobe status post chemoradiation. TECHNIQUE: FDG PET-CT imaging was performed from the skull bases through the thighs in a single acquisition with data set reconstructed in axial, coronal, and sagittal planes at the computer workstation with fused data from both the PET imaging study and attenuation correction CT. The CT portion of the examination was done strictly for attenuation correction and is not a true diagnostic CT examination. DLP: 717 mGy-cm Radiopharmaceutical: 12.2 mCi of F-18 FDG IV. Blood glucose: 117 mg/dl. COMPARISON: Prior PET/CT 12/2024, August [address] 03/2025 FINDINGS: HEAD AND NECK: No abnormal FDG activity. THORAX: Significant interval decrease in size of right upper lobe nodule with subjacent fiducial marker SUV max 1.8 (previously 15). Interval decrease in size of left lower lobe nodule SUV max 1.1 (previously 2.7). Right lower lobe lung nodule medially SUV max 1.8 (previously 1.5). No significant FDG avid thoracic or axillary lymphadenopathy. For example, right paratracheal lymph node SUV max 2.7 and subcarinal lymph node SUV max 2.6 (mediastinal blood pool SUV Max 3.3). ABDOMEN/PELVIS: 7 mm left adrenal nodule SUV max 2.4 (previously 2.4 on August 2024) and activity on the right SUV max 2.1 (previously 2.7 on August 2024). Nonspecific bowel activity. Diverticulosis. MUSCULOSKELETAL: New ninth left posterior rib fracture SUV Max 3.3. Focal photopenic defect of the thoracolumbar spine likely representing posttreatment appearance. Screw fixation along the left sacroiliac joint. Procedure Note Edelmira Yu MD - 05/27/2025 INDICATION: Lung cancer right upper and left lower lobe status postchemoradiation. TECHNIQUE: FDG PET-CT imaging was performed from the skull bases throughthe thighs in a single acquisition with data set reconstructed in axial,coronal, and sagittal planes at the computer workstation with fused datafrom both the PET imaging study and attenuation correction CT. The CTportion of the examination was done strictly for attenuation correctionand is not a true diagnostic CT examination. DLP: 717 mGy-cm Radiopharmaceutical: 12.2 mCi of F-18 FDG IV. Blood glucose: 117 mg/dl. COMPARISON: Prior PET/CT 12/2024, August [address] 03/2025 FINDINGS: HEAD AND NECK: No abnormal FDG activity. THORAX: Significant interval decrease in size of right upper lobe nodulewith subjacent fiducial marker SUV max 1.8 (previously 15). Intervaldecrease in size of left lower lobe nodule SUV max 1.1 (previously 2.7).Right lower lobe lung nodule medially SUV max 1.8 (previously 1.5). No significant FDG avid thoracic or axillary lymphadenopathy. Forexample, right paratracheal lymph node SUV max 2.7 and subcarinal lymphnode SUV max 2.6 (mediastinal blood pool SUV Max 3.3). ABDOMEN/PELVIS: 7 mm left adrenal nodule SUV max 2.4 (previously 2.4 onAugust 2024) and activity on the right SUV max 2.1 (previously 2.7 2024). Nonspecific bowel activity. Diverticulosis. MUSCULOSKELETAL: New ninth left posterior rib fracture SUV Max 3.3. Focalphotopenic defect of the thoracolumbar spine likely representingposttreatment appearance. Screw fixation along the left sacroiliac joint. IMPRESSION: 1. Interval decrease in size and FDG activity of right upper lobe andleft lower lobe lung nodules 2. New left ninth posterior rib fracture 3. No significant FDG avid lymphadenopathy Please note: The CT was acquired at a low radiation dose settings. The images are ofnondiagnostic quality and used solely for purposes of attenuationcorrection and slice localization for the PET scan. If a diagnostic CTstudy is desired it must be ordered separately. -------- FINAL REPORT -------- Dictated By: Edelmira Yu Dictated Date: 05/27/2025 09:29 ET Assigned Physician: Edelmira Yu Reviewed and Electronically Signed By: Edelmira Yu Signed Date: 05/27/2025 10:34 ET Workstation ID: [id number] Transcribed By: Self Edit Transcribed Date: 05/27/2025 09:29 ET Alba Zapien MD IM NM PROCEDURES Final Result * CT Chest w Contrast (04/15/2025 1:10 [...] Signed Date: 04/18/2025 14:38 ET Workstation ID: [id number] Transcribed By: Self Edit Transcribed Date: 04/18/2025 [...] Signed Date: 04/18/2025 14:38 ET Workstation ID: [id number] Transcribed By: Self Edit Transcribed Date: 04/18/2025 [...] GY ORDERABLES Final Result Performing Organization Address City/[facility] Co de Phone Number [facility] RADIATION ONCOLOGY * Pathology review, blood smear (03/11/2025 11:54 AM EDT) Pathologist Review Blood Smear Pancytopenia including absolute neutropenia and lymphopenia, macrocytic anemia and thrombocytopeni a: consider chemotherapy effect vs. Other etiology. Thrombocytopeni a confirmed (no platelet clumps identified). 03/11/2025 1:34 PM EDT [facility] Blood Venous blood specimen / Unknown Venipuncture / Unknown 03/11/2025 11:54 AM EDT 03/11/2025 12:14 PM EDT Mihaela Barbour MD LAB BLOOD ORDERABLES Final R esult [facility] [address] [place] [address], * Vascular US duplex carotid bilateral (03/11/2025 [...] Signed Date: 03/11/2025 16:06 ET Workstation ID: [id number] Transcribed By: Self Edit Transcribed Date: 03/11/2025 [...] Signed Date: 03/11/2025 16:06 ET Workstation ID: [id number] Transcribed By: Self Edit Transcribed Date: 03/11/2025 16:01 ET us Krupa Gacria MD CV VASCULAR PROCEDURES Fi nal Result [...] RADIATION ONCOLOGY 03/11/2025 10:3 1 AM EDT us Physician Radiation Oncology RADIATION [...] RADIATION ONCOLOGY 03/07/2025 10:1 4 AM EDT us Physician Radiation Oncology [...] GY ORDERABLES Final Result Performing Organization Address [facility] Co de Phone Number [facility] RADIATION [...] ONCOLOGY * Magnesium (03/04/2025 10:42 AM EDT) Magnesium 1.9 1.9 - 2.6 mg/dL LAB CHEMISTRY METHOD 03/04/2025 11:44 AM EDT [facility] Blood Venous blood specimen / Unknown Venipuncture / Unknown 03/04/2025 10:42 AM EDT 03/04/2025 11:08 AM EDT Mihaela Barbour MD LAB BLOOD ORDERABLES Final R esult Performing Organization Address City/[facility]/ZIP Co de Phone Number [facility] [address] [place] [address], [place] [phone] * Rad Onc Msq Treatment Summary (03/04/2025 [...] RADIATION ONCOLOGY 03/03/2025 10:2 5 AM EDT us Physician Radiation Oncology RADIATION ONCOLO GY ORDERABLES Final Result [facility] RADIATION [facility]COLOGY * Lipid panel (06/08/2023) LDL/HDL Ratio 2 0 - 4 Triglycerides 121 0 - 150 mg/dL Cholesterol 175 0 - 200 mg/dL HDL 91 >=40 mg/dL LDL Cholesterol 60 0 - 100 mg/dL Blood Venous blood specimen / Unknown us Historical Provider MD LAB BLOOD ORDERABLES Tamy l Result * [...] (World Health Organization Fracture Risk Assessment) The [facility] Department of Internal Medicine recommends using National [...] screening schedule based on sherman Franco al., [facility] September 08, 2011 for patients with [...] (World Health Organization Fracture Risk Assessment) [facility] Department of Internal Medicine recommendsusing National Osteoporosis [...] Resu lt * Hepatitis C Screening (05/13/2020) [facility] Hepatitis C Screening Abstracted Historical Provider MD HEALTH MAINTENANCE Final Result from Last 3 Months or Most Recently Relevant to Health Maintenance Insurance [employer] MEDICARE MEDICAID - [place] Advance Directives Documents on File Type Date Recorded 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
--- OUTSIDE RECORDS SUMMARY | 2025-06-03 17:31 | XMS_ITS | Encounter Summary ---
Author Organization [facility] [address] Address [id number] [place] [phone] Care Team Providers Care Auto Overhauler Name Role Phone Will Monroe MD Primary Care Provider [phone] Reason for Visit * Reason Onset Date Comments faxed order 05/08/2025 [facility] missed visit Encounter Details Date Type Department Care Team (Late st Contact Info) Description 05/08/2025 Telephone Adult Medicine [address] [phone] Will Monroe MD [address] [place] [address] Social History Tobacco Use Types Packs/Day Years [...] encounter Progress Notes * Marian Kim - 05/08/2025 1:36 PM EDT [facility] missed visit received please sign and fax to [phone] documented in this encounter Plan of Treatment Upcoming Encounters Date Type Department Care Team (Late st Contact Info) Description 06/24/2025 11:00 AM EST Appointment [facility] [address] [place] [phone] 06/24/2025 3:30 PM EST Appointment [facility] Radiation Oncology [address] [place] [phone] Alba Zapien MD [address] [place] [phone] 07/08/2025 11:15 AM EST Office Visit [facility] Hematology Oncology [address] [place] [phone] Mihaela Barbour MD [address] [place] [phone] 07/16/2025 11:00 AM EST Office Visit Adult Medicine [facility] [address] [place] [phone] Will Monroe MD [address] [place] [phone] 07/22/2025 11:00 AM EST Appointment [facility] [address] [place] [phone] 08/20/2025 11:00 AM EST Office Visit Pulmonology [facility] [address] [phone] Jelena Hoff NP [address] [place] [phone] 03/03/2026 11:00 AM EDT Appointment [facility] Ultrasound [address] [place] [phone] 04/01/2026 11:30 AM EDT Office Visit Vascular Surgery [place] [address] [place] [phone] Krupa Garcia MD [address] [place] [phone] documented as of this encounter Visit Diagnoses Not on filedocumented in this encounter Care Teams Auto Overhauler Relationship Specialty Start Date End Date Will Monroe MD [address] [place] [phone] PCP - General Internal Medicine 07/08/24 documented as of this encounter
--- OUTSIDE RECORDS SUMMARY | 2025-06-03 17:31 | XMS_ITS ---
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 V24, [facility] V28) 05/13/2025 Pulmonary emphysema ([facility] V24, 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 V24, [facility] V28) 02/19/2025 Fall 02/06/2025 Small cell lung cancer, left lower lobe ([facility] V24, 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 V24, [facility] V28) 11/25/2024 Pulmonary nodule 10/07/2024 [...] Hilar lymphadenopathy 10/07/2024 Osteopenia 09/16/2021 Psoriatic arthritis ([facility] V24, [facility] V28) 1 10/12/2020 Overview (06/12/2024): Humira started [...] (06/12/2024): Followed by ADELA Rose, Amari. 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 V24, [facility] V28) 07/24/2017 Overview (06/12/2024): Chronic [...] internal carotid stenosis by Doppler Seizure disorder ([facility]/HCC V24, [facility]/HCC V28) 11/2016 Overview (06/12/2024): 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 On Dilantin Thrombocytopenia (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 (CMS/HCC V24, CMS/HCC V28) Treatment Medications Current Day (Day 1 , Cycle 2 - Planned for 06/24/2025) Next Day (Day 1, Cycle 3 - Planned for 07/22/2025) durvalumab (IMFINZI)durvalumab (IMFINZI) chemo IVPB 250 mL durvalumab (IMFINZI) 1,500 mg in sodium chloride 280 mL chemo IVPB durvalumab (IMFINZI) 1,500 mg in sodium chloride 280 mL chemo IVPB Past Treatment and Therapy Plans Oncology Treatment Plan Name Start Date Discontinue Date Treatment Medications Discontinue Reason Plan Provider Cycles PACLitaxel / CARBOplatin with Concurrent Radiation 5 05/13/2025 CARBOplatin (PARAPLATIN)CA RBOplatin (PARAPLATIN) chemo 250 mL IVPB (by AUC)PACLitaxel (TAXOL)PACLita xel (TAXOL) chemo IVPB NS 250 mL (1 hours) - Therapy Complete Mihaela Barbour MD 2 of 2 cycles started PACLitaxel / CARBOplatin - Non-Small Cell Lung Cancer / Thymomas and Thymic Carcinomas 5 01/16/2025 CARBOplatin (PARAPLATIN)PA CLitaxel (TAXOL) Change in Level of Care Mihaela Barbour MD Treatment not started Current Radiation Episodes * Radiation Therapy: LungOverview* First Treatment Date Latest Treatment Date Treatment Site Technique Goal Episode Provider 02/04/2025 03/18/2025 Lung Curative Rowena aGribay NP * Linked Problems Treatment Courses* Course 1 02/04/2025 - 03/18/2025 Treatment Sites Treatment Period Fraction Dose Fractions Total Dose Left lung 02/04/2025 - 03/18/2025 200 / 200 cGy 30 / 30 6,000 / 6,000 cGy Lifetime Dose Tracking * Chemical Lifetime Dose Automatic Entry Manual Entr y Fluoro Time 7.49 minutes 7.49 minutes 0 minutes Air Kerma 300.5 mGy 300.5 mGy 0 mGy CTDIvol 10.56 mGy 10.56 mGy 0 mGy
--- OUTSIDE RECORDS SUMMARY | 2025-06-03 17:31 | XMS_ITS | Encounter Summary ---
Author Organization [facility] Address [id number] [place] [phone] Care Team Providers Care Truss Designer Name Role Phone Will Monroe MD Primary Care Provider [phone] Reason for Visit * Reason Onset Date Comments Forms/questionnaires 06/02/2025 Encounter Details Date Type Department Care Team (Late st Contact Info) Description 06/02/2025 Telephone Vascular Surgery - [place] [address] [place] [address] Krupa Garcia MD [address] [place] [phone] Social History Tobacco Use Types Packs/Day Years [...] as of this encounter Progress Notes * Isa Awad - 06/02/2025 1:08 PM EDT [facility] called they received the form, but they need us to write in the form that patient is ok to come off Plavix 5 days prior to procedure. * Naldo Mcmillan MA - 06/02/2025 11:45 AM EDT Patient can stop plavix for procedure form faxed to below number * Ko Fitzgerald - 06/02/2025 11:15 AM EDT Received a call from [facility], they need this form urgently as the patient is in a lot of pain. Please call them at [phone] in the case you have further questions. * Isa Awad - 06/02/2025 8:16 AM EDT Form Received to be filled out, signed and fax back to: [facility]: [phone] documented in this encounter Plan of Treatment Upcoming Encounters Date Type Department Care Team (Late st Contact Info) Description 06/24/2025 11:00 AM EST Appointment [facility] [address] [place] [phone] 06/24/2025 3:30 PM EST Appointment [facility] Radiation Oncology [address] [place] [phone] Alba Zapien MD [address] [place] [phone] 07/08/2025 11:15 AM EST Office Visit [facility] Hematology Oncology [address] [place] [phone] Mihaela Barbour MD [address] [place] [phone] 07/16/2025 11:00 AM EST Office Visit Adult Medicine [facility] [address] [place], [place] [phone] Will Monroe MD [address] [place], [place] 07/22/2025 11:00 AM EST Appointment [facility] [address] [facility] 2nd [place] [phone] 08/20/2025 11:00 AM EST Office Visit Pulmonology - [place] [address] [facility] [address] [place] [phone] Jelena Hoff, ORACLE DEVELOPER [address] [place] [phone] 03/03/2026 11:00 AM EDT Appointment [facility] Ultrasound [address] [place] [phone] 04/01/2026 11:30 AM EDT Office Visit Vascular Surgery - [place] [address] [place] [phone] Krupa Garcia MD [address] [place] [phone] documented as of this encounter Visit Diagnoses Not on filedocumented in this encounter Care Teams Truss Designer Relationship Specialty Start Date End Date Will Monroe MD [address] [place] [address] PCP - General Internal Medicine 07/08/24 documented as of this encounter
== END 2025-06-03 14:40 | disposition home or self-care (01) ==
LOC: HO.HOP 14:39
PROVIDERS: PCP Internal Medicine; Visit Provider Clinical Nurse Specialist Psychiatric/Mental Health
DX: R45.89 Other symptoms and signs involving emotional state (principal); F33.1 Major depressive disorder, recurrent, moderate; F43.10 Post-traumatic stress disorder, unspecified
CPT/HCPCS: 99213

== ENCOUNTER 2025-07-01 11:56 | Outpatient (AMB) | payer MEDICARE, SELFPAY ==
--- OUTSIDE RECORDS SUMMARY | 2025-06-24 13:12 | XMS_ITS | Encounter Summary ---
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 Patient has lung CA and is currently on chemo. Normally on oxygen at home 2 liters and oxygen sats in high 98 percent, She is working to breath and respiration are in the 30's. * Auth/Cert Specialty Diagnoses / Procedures Referred By Contac t Referred To Contact Diagnoses Acute hypoxic respiratory failure ([facility] V24, [facility] V28) Procedures / Bogdan Dumont MD [address] [place] [address] Phone: tel: fax: [facility] [address] [place] [phone] Phone: tel: Referral ID Status Reason Start Date Expiration Date Visits Re quested Visits Authorized [id number] 1 1 Encounter Details Date Type Department Care Team (Latest Contact Info) Description 06/24/2025 1:12 PM EST - 06/26/2025 1:58 PM EST Hospital Encounter [facility] [address] [place] [phone] Fer Nguyen MD [address] [place] [id number] Jess Fink MD [address] [place] [address] Bogdan Dumont MD [address] [place] [phone] Mikey Jamison MD [address] [place] [id number] Hypoxia (Primary Dx); Small cell lung cancer, left lower lobe (CMS/HCC V24, CMS/HCC V28); 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 No 06/25/2025 Food Access & Nutrition Answer Date Rec orded Do you have access to a vari ety of food including fruits and vegetables? Yes 06/25/2025 Access to Healthcare Answer Date Record ed Within the last 3 months, ho w many times did you visit the emergency department for your medical care? 0 06/25/2025 Health Literacy Answer Date Recorded How often do you need to hav e someone help you when you read instructions, pamphlets, or other written material from your doctor or pharmacy? Sometimes 06/25/2025 Caregiver: How often do you need to have someone help you when you read instructions, pamphlets, or other written material from your doctor or pharmacy? Not on file 06/25/2025 Financial Risk Answer Date Recorded How hard is it for you to pa y for the very basics like food, housing, medical care, and air conditioning / heating? Not very hard 06/25/2025 Transportation Answer Date Recorded Has the lack of transportati on kept you from meetings, work, or from getting things needed for daily living? No Has the lack of transportati on kept you from medical appointments or from getting medications? No 06/25/2025 Social Isolation Answer Date Recorded How often do you feel lonely or isolated from th ose around you? Never 06/25/2025 Food Risk Answer Date Recorded Within the past 12 months we worried whether our food would run out before we got money to buy more. Never true 06/25/2025 Within the past 12 months th e food we bought just didn't last and we didn't have money to get more. Never true 06/25/2025 Dependent Care Answer Date Recorded Do you need help finding or paying for care for your loved ones. For example, child development director or elderly care for an older adult? No 06/25/2025 Education Answer Date Recorded Do you think completing more education or training, like finishing a GED, going to college, or learning a trade, would be helpful for you? No 06/25/2025 Employment and Income Answer Date Recor ded During the last four weeks, have you been actively looking for work? No 06/25/2025 Living Situation Answer Date Recorded What is your living situation? Unrecognized valu e 06/25/2025 Interpersonal Safety Answer Date Record ed Physical Abuse Unrecognized value 06/25/2025 Verbal Abuse Unrecognized value 06/25/2025 Comments No Sex and Gender Information Value Date Recorded Sex Assigned at Female 10/18/2024 2:01 PM EST Legal Sex Female 1:52 AM EST Gender Identity Female 10/18/2024 2:01 PM EST Sexual Orientation Straight 10/18/2024 2: 01 PM EST documented as of this encounter Last Filed Vital Signs Vital Sign Reading Time Taken Comments Blood Pressure 121/98 06/26/2025 8:01 AM EST Pulse 86 06/26/2025 8:01 AM EST Temperature 36.7 C (98 F) 06/26/2025 8:01 AM EST Respiratory Rate 16 06/26/2025 8:01 AM EST Oxygen Saturation 95% 06/26/2025 8:01 AM EST Inhaled Oxygen Concentration - - Weight 72.8 kg (160 lb 7.9 oz) 06/24/2025 1:18 P M EST Height 162.6 cm (5' 4.02 ) 06/24/2025 1:18 PM ES T Body Mass Index 27.54 06/24/2025 1:18 PM EST documented in this encounter Functional Status * Calculated C-SSRS Risk Score (Lifetime/Recent) Answer Date of Assessment Author No Risk Indicated 06/25/2025 12:27 PM EST Dorcas Ortega, RAYMOND * [place] Suicide Severity Rating Scale (Screener/Recent Self-Report) Question Answer Date of Assessment Author 1. Wish to be (Past 1 Month) No 06/25/2025 12:27 PM EST Leti Wong RN 2. Non-Specific Active Suici gerry Thoughts (Past 1 Month) No 06/25/2025 12:27 PM EST Me sánchez Wong RN 6. Suicidal Behavior (Lifetime) No 12:27 PM EST Dorcas Wong, RAYMOND documented as of this encounter Medications at Time of Discharge adalimumab (Humira,CF, Pen) 40 mg/0.4 mL pen Inject 40 mg into the skin every 14 days for 28 days. ARIPiprazole (ABILIFY) 5 mg tablet Take 1 tablet (5 mg total) by mouth 1 (one) time each day. budesonide (PULMICORT) 0.5 mg/2 mL nebulizer solutionIndications :COPD with acute exacerbation (CMS/HCC V24, CMS/HCC V28) Take 2 mL (0.5 mg total) by nebulization 2 (two) times a day for 10 days. Rinse mouth with water after use to reduce aftertaste and incidence of candidiasis. Do not swallow. 40 mL 5 07/06/20 25 carvediloL (COREG) 12.5 mg tablet TAKE ONE TABLET TWICE DAILY 180 tablet 5 cloNIDine (CATAPRES) 0.1 mg tablet TAKE ONE TABLET TWICE DAILY 180 tablet 5 clopidogreL (PLAVIX) 75 mg tablet Take 1 tablet (75 mg total) by mouth 1 (one) time each day. 90 tablet 1 5 diazePAM (VALIUM) 10 mg tablet Take 1 Tablet by mouth every 8 hours as needed for Anxiety. 3 guaiFENesin (MUCINEX) 600 mg 12 hr tablet Take 1 tablet (600 mg total) by mouth every 12 (twelve) hours for 10 days. Do not crush, chew, or split. 20 each 5 07/06/20 25 ipratropium-albuter oL (DUONEB) 0.5-2.5 mg/3 mL nebulizer solutionIndications :COPD with acute exacerbation (CMS/HCC V24, CMS/HCC V28) Take 3 mL by nebulization every 6 (six) hours for 10 days. 120 mL 5 07/06/20 25 levoFLOXacin (LEVAQUIN) 750 mg tablet Take 1 tablet (750 mg total) by mouth 1 (one) time each day for 7 days. 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 60 tablet 2 10/08/202 5 mirtazapine (REMERON) 15 mg tablet Take 1.5 tablets (22.5 mg total) by mouth at bedtime. 4 nicotine (NICODERM CQ) 21 mg/[address] 1 patch on the skin 1 (one) time each day. 30 each 5 07/27/20 25 ondansetron ODT (ZOFRAN-ODT) 4 mg disintegrating tablet DISSOLVE ONE TABLET IN MOUTH EVERY EIGHT HOURS NEEDED FOR NAUSEA 30 each 5 phenytoin (DILANTIN) 100 mg ER capsuleIndications: Seizure disorder (CMS/HCC V24, CMS/HCC V28) TAKE ONE CAPSULE TWICE DAILY 270 capsule 5 predniSONE (DELTASONE) 10 mg tablet Take 3 tablets (30 mg total) by mouth 1 (one) time each day for 3 days, THEN 2 tablets (20 mg total) 1 (one) time each day for 3 days, THEN 1 tablet (10 mg total) 1 (one) time each day for 3 days. 18 each 5 07/05/20 25 prochlorperazine (COMPAZINE) 10 mg tabletIndications:S mall cell [...] mouth at bedtime. 90 tablet 1 5 documented as of this encounter Ordered Prescriptions Prescription Sig Dispense Quantity Refills Last Filled Start Date End Date levoFLOXacin (LEVAQUIN) 750 mg tablet Take 1 tablet (750 mg total) by mouth 1 (one) time each day for 7 days. 7 each 06/26/2025 5 predniSONE (DELTASONE) 10 mg tablet Take 3 tablets (30 mg total) by mouth 1 (one) time each day for 3 days, THEN 2 tablets (20 mg total) 1 (one) time each day for 3 days, THEN 1 tablet (10 mg total) 1 (one) time each day for 3 days. 18 each 06/26/2025 5 nicotine (NICODERM CQ) 21 mg/[address] 1 patch on the skin 1 (one) time each day. 30 each 06/27/2025 5 ipratropium-albut Andreina (DUONEB) 0.5-2.5 mg/3 mL nebulizer solutionIndicatio ns:COPD with acute exacerbation (CMS/HCC V24, CMS/HCC V28) Take 3 mL by nebulization every 6 (six) hours for 10 days. 120 mL 06/26/2025 guaiFENesin (MUCINEX) 600 mg 12 hr tablet Take 1 tablet (600 mg total) by mouth every 12 (twelve) hours for 10 days. Do not crush, chew, or split. 20 each 06/26/2025 5 budesonide (PULMICORT) 0.5 mg/2 mL nebulizer solutionIndicatio ns:COPD with acute exacerbation (CMS/HCC V24, CMS/HCC V28) Take 2 mL (0.5 mg total) by nebulization 2 (two) times a day for 10 days. Rinse mouth with water after use to reduce aftertaste and incidence of candidiasis. Do not swallow. 40 mL 06/26/2025 5 documented in this encounter Discharge Disposition Disposition Code Departure Means Destination Home-Health Care Svc documented in this encounter Progress Notes * Prerna Vazquez RN - 06/26/2025 1:49 PM EST Patient ready for discharge, VSS, prn angio removed. Discharge instructions discussed with patient and family at bedside. Patient verbalized understanding. Patient discharged home with VNA via wheelchair * Araseli Pritchard, PT - 06/26/2025 11:30 AM EST [place] Acute Care PT TREATMENT 06/26/2025 Patient Information Rita Draper 1950 74 y.o. Ambulation: Walking Assistance: Close supervision Device: Rolling walker Distance Ambulated (ft): (20 ft x 4 wiht rests) PLOF: Level of Travis: Independent with mobility and functional transfers Lives With: Spouse Receives Help From: Family Type of Home: [facility] Home Adaptive Equipment: Walker - rolling Home Layout: Two level, 1/2 bath on main level, Stairs to alternate level with rails Home Access: Stairs to enter with rails DME Needs: PT Discharge Recommendation: Home PT Medical Diagnosis ICD-10-CM ICD-9-CM 1. Hypoxia R09.[address] Angio Chest wo and/or w Contrast CT Angio Chest wo and/or w Contrast 2. Small cell lung cancer, left lower lobe ([facility] V24, [facility] V28) C34.32 162.5 Ambulatory referral to Home Health 3. 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 COPD with acute exacerbation ([facility] V24, [facility] V28) J44.1 491.21 Ambulatory referral to HomeHealth budesonide (PULMICORT) 0.5 mg/2 mL nebulizer solution ipratropium-albuteroL (DUONEB) 0.5-2.5 mg/3 mL nebulizer solution Rehabilitation Precautions/Restrictions Precautions Medical Precautions: Fall Risk Safety Interventions: Call alonso within reach, Side rails up x2, Bed alarm Swallow Precautions: Aspiration RUE Weight Bearing Status: Full LUE Weight Bearing Status: Full RLE Weight Bearing Status: Full LLE Weight Bearing Status: Full PT Session: PT Time Calculation PT Start Time: 1130 PT Stop Time: 1200 PT Time Calculation (min): 30 min SUBJECTIVE I feel fine OBJECTIVE Vitals/Pain: Oxygen Therapy Oxygen Therapy: Supplemental oxygen O2 Flow Rate (L/min): 2 L/min Pain Assessment Pain Assessment: No/denies pain Patient's Pain Goal: No pain General Assessments: Dynamic Standing Balance Dynamic Standing-Level of Assistance: Close supervision Dynamic Standing-Balance: Ambulation Dynamic Standing-Comments: good with RW Functional Assessments: Transfers Sit to Stand Assistance: Close supervision Chair/Bed to Chair/Bed Transfer Assistance: Close supervision Ambulation Walking Assistance: Close supervision Device: Rolling walker Distance Ambulated (ft): (20 ft x 4 wiht rests) Comments: steady Stairs Stairs Assistance: Contact guard, Close supervision Stair Management Technique/Device: Two rails Number of Stairs: 9 Stairs Comments: steady Procedure/Treatment: Gait Training Gait Training Time Entry: 30 Gait Training Activity 1: pls see above for mobility. Pt's was present for the session. Pt to be D/C later this afternoon. Pt was on 2L O2 throughout session. Rec home PT. Education Education Documentation Mobility Training, taught by Araesli Pritchard PT at 06/26/2025 11:30 AM. Learner: Patient Readiness: Acceptance Method: Explanation Response: Verbalizes Understanding Comment: rest in between activities. HOme PT. Education Comments No comments found. ASSESSMENT Pt ambulated safely with RW and steady on stairs. Safe to go home with recommendation of home PT. PT Assessment Prognosis: Good Evaluation/Treatment Tolerance: Patient tolerated treatment well Medical Staff Made Aware: Yes Comments: nurse Problems/Goals Goals: Encounter Problems Encounter Problems (Active) There are no active problems. Encounter Problems (Resolved) Template: Physical Therapy Problem: PT Short Term Goals Dates: Start: 06/25/25 Resolved: 06/26/25 Goal: PT STG 1 the pt will climb 12 steps with 1 railing and supervision (Resolved) Dates: Start: 06/25/25 Expected End: 07/02/25 Resolved: 06/26/25 Outcomes Date/Time User Outcome 06/26/25 1349 Prerna Vazquez RN Adequate for Discharge Goal: PT STG 2 the pt will ambulate 50' with a walker and supervision (Resolved) Dates: Start: 06/25/25 Expected End: 07/02/25 Resolved: 06/26/25 Outcomes Date/Time User Outcome 06/26/25 134Janette Vazquez RN Adequate for Discharge Equipment Equipment Received: Equipment Recommended: Rolling walker PLAN During acute care stay: PT Plan: No skilled PT PT Frequency: 2-5 days per week Treatment/Interventions: LE strengthening/ROM, Endurance training, Patient/family training, Gait training, Balance training PT Discharge Recommendations: Home PT PT Time Entry: Gait Training Time Entry: 30 * Sania Nesbitt RN - 06/26/2025 10:56 AM EST Pt medically cleared for discharge. Dispo is home with VNA services. [facility] notified that pt will be discharged home today. Family to provide transportation. * Yahaira David [facility]-CAREER DEVELOPMENT CONSULTANT - 06/26/2025 8:30 AM EST Images from the original note were not included. Speech Language Pathology [facility] CAREER DEVELOPMENT CONSULTANT TREATMENT NOTE NAME: Rita Draper DATE OF : 1950 ROOM: [address] [place] [address] Pt ID by: Self, Full Name and DATE: 06/26/25 RECOMMENDATIONS: DIET SOLIDS RECOMMENDATIONS: IDDSI Level 6 Soft and Bite Sized DIET LIQUIDS RECOMMENDATIONS: Thin liquids ASPIRATION RISK: Recommendations: Dysphagia treatment Diet Solids Recommendation: IDDSI Level 6 Soft and Bite Sized Diet Liquids Recommendation: Thin liquids Liquid Administration Via: Cup Supervision Level: Set up with meals, Intermittent supervision with meals Compensatory Swallowing Strategies: External pacing, Eat/feed slowly, Small bites/sips, Upright as possible for all oral intake, Remain upright for 20-30 minutes after meals, Other (Comment) (breathing breaks) Recommended Medication Route: PO Recommended Medication Administration: One pill at a time (crushed in puree) IMPRESSIONS: CAREER DEVELOPMENT CONSULTANT ASSESSMENT: CAREER DEVELOPMENT CONSULTANT Assessment Results: Swallowing impairments Dysphagia Diagnosis: (mild oral dysphagia, no signs of oropharyngeal dysphagia this date.) Evaluation/Treatment Tolerance: Patient tolerated treatment well Comments: Pt continues to present with mild oral dysphagia, secondary to acute respiratory failure.Pt without s/s of oropharyngeal dysphagia this session, vital signs remained stable throughout me[place] no overt clinical s/s of pulmonary compromise. Pt back on baseline 2 LPM via NC. Recommend dietadvance to IDDSI 6 soft and bite sized/0 thin liquids (slow rate of intake, chew solids well), continue meds crushed in puree (those that can't be crushed- whole in puree). Suspect yesterday's possible aspiration event was isolated; instrumental; evaluation not recommend at this time. If symptoms increase in future, will consider instrumental eval. Medical Staff Made Aware: Yes Comments: RN, MD, and MANAGED CARE LIAISON TIME CALCULATION: CAREER DEVELOPMENT CONSULTANT Start Time: 829 CAREER DEVELOPMENT CONSULTANT Stop Time: 08 CAREER DEVELOPMENT CONSULTANT Time Calculation (min): 15 min Access Consultant Required: No ADMISSION DIAGNOSIS: Hypoxia [R09.02] Acute hypoxic respiratory failure (CMS/HCC V24, CMS/HCC V28) [J96.01] FAMILY/CAREGIVER PRESENT: No SUBJECTIVE SUBJECTIVE: Chart reviewed and cleared by RN for CAREER DEVELOPMENT CONSULTANT session; pt improved today, back on 2 LPM via NC (baseline), decreased SOB. Pt sat upright on edge of bed with breakfast tray upon arrival, agreeable to observation at this time. RESPIRATORY STATUS: Nasal Cannula PRECAUTIONS: Swallow Precautions: Aspiration MENTAL STATUS Alert Responsive Cooperative OBJECTIVE PAIN: OXYGEN THERAPY: Patient Activity: At rest Oxygen Therapy: Supplemental oxygen O2 Flow Rate (L/min): 2 L/min TREATMENTS: Treatments: Swallow Function SWALLOW FUNCTION: Swallow/Oral Function Treatment Time Entry: 15 Swallow Activity 1: Thin liquids via cup edge single sip x 4, self fed, juice and tea: appropriate oral phase without overt clinical s/s of pulmonary compromise Swallow Activity 2: IDDSI 4 puree x 4, self fed, yogurt: mild anterior spillage at labial corners; however did not interfere with overall swallow function. NO overt clinial s/s of pulmonary compromise. Swallow Activity 3: IDDSI 6 soft and bite sized x 3, self fed, banana: approproiate oral phase, no overt clinical s/s of pulmonary compromise. Diet Recommendations: IDDSI 6 soft and bite sized/0 thin liquids Swallow Comments: Sp02 at 94% during PO intake, stable at end of meal ASPIRATION RISK: Recommendations: Dysphagia treatment Diet Solids Recommendation: IDDSI Level 6 Soft and Bite Sized Diet Liquids Recommendation: Thin liquids Liquid Administration Via: Cup Supervision Level: Set up with meals, Intermittent supervision with meals Compensatory Swallowing Strategies: External pacing, Eat/feed slowly, Small bites/sips, Upright as possible for all oral intake, Remain upright for 20-30 minutes after meals, Other (Comment) (breathing breaks) Recommended Medication Route: PO Recommended Medication Administration: One pill at a time (crushed in puree) SPEECH AND LANGUAGE: CURRENT DIET ORDERED: Dietary Orders (From admission, onward) Start Ordered 06/26/25 0908 Adult diet [facility]; General, Modified Consistency Options for Liquids and Solids; Regular; IDDSI Level 6 Soft & Bite Sized Diet effective now Question Answer Comment Location [facility] Diet Type (req) General Diet Type (req) Modified Consistency Options for Liquids and Solids General Diet Regular Modified Consistency Options for Liquids and Solids IDDSI Level 6 Soft & Bite Sized 06/26/25 0907 PLAN CAREER DEVELOPMENT CONSULTANT PLAN: Treatment/Interventions: Swallow function CAREER DEVELOPMENT CONSULTANT Plan: Skilled CAREER DEVELOPMENT CONSULTANT CAREER DEVELOPMENT CONSULTANT Frequency: 2-5 days per week CAREER DEVELOPMENT CONSULTANT - Evaluation Status: Complete Diet Recommendations: IDDSI 6 soft and bite sized/0 thin liquids DISCHARGE RECOMMENDATIONS Ongoing Skilled Speech-Language Pathology (CAREER DEVELOPMENT CONSULTANT) services at next level of care. EDUCATION EDUCATION: Education Documentation Modified Diet Training, taught by SKYLAR Patton at 06/26/2025 9:16 AM. Learner: Patient Readiness: Acceptance Method: Explanation Response: Verbalizes Understanding, Demonstrated Understanding Education Comments No comments found. GOALS GOALS: Encounter Problems Encounter Problems (Active) Template: Speech Therapy Problem: Swallowing Dates: Start: 06/25/25 Goal: Patient will tolerate the least restrictive diet consistency to allow for safe consumption ofdaily meals Dates: Start: 06/25/25 Expected End: 07/02/25 Outcomes Date/Time User Outcome 06/26/25 0916 SKYLAR Patton Progressing Encounter Problems (Resolved) There are no resolved problems. SKYLAR Patton 06/26/2025 * Yara Gutierrez RN - 06/25/2025 4:46 PM EST 06/25/25 1645 Initial Transition Plan Initial Transition Plan Home Health Care Back up Transition Plan Back up Transition plan Home Health Care Discharge Planning Living Arrangements Spouse/significant other Type of Residence Private residence ([address] [place] [address] 2 steps to enter) Assistive Devices None Support Systems Spouse/significant other Medication Coverage Has Med Coverage Under Insurance Plan Yes Medication Affordability No concerns related to payment for meds Anticipated Discharge Needs Discipline following for SNF placement Depilatory Painter Informed Choice Informed Choice Given? Yes MICHAEL: 06/27 Plan: VNA- declines SNF ref Barriers: PNA, lung ca, IV abx, 5L NC, solumedrol Therapy Eval: 06/25 = VNA Referral status: entered Auth status: na Last BM: unk Pharmacy: [facility] HCP: Yes Support Persons and Availability: Significant Other PCP: Will Monroe MD * Yahaira David [facility]-CAREER DEVELOPMENT CONSULTANT - 06/25/2025 12:00 PM EST Images from the original note were not included. Speech Language Pathology [facility] CAREER DEVELOPMENT CONSULTANT TREATMENT NOTE NAME: Rita Draper DATE OF : 1950 ROOM: [address] [place] [address] Pt ID by: Self, Full Name and DATE: 06/25/25 RECOMMENDATIONS: DIET SOLIDS RECOMMENDATIONS: No solids, see liquids DIET LIQUIDS RECOMMENDATIONS: Thin liquids ASPIRATION RISK: Recommendations: Dysphagia treatment Diet Solids Recommendation: No solids, see liquids Diet Liquids Recommendation: Thin liquids Liquid Administration Via: Cup Supervision Level: Supervision with meals Compensatory Swallowing Strategies: Upright as possible for all oral intake, Remain upright for 20-30 minutes after meals, Small bites/sips, Eat/feed slowly, External pacing, Slow rate of intake Recommended Medication Route: PO Recommended Medication Administration: Crushed (in puree) IMPRESSIONS: CAREER DEVELOPMENT CONSULTANT ASSESSMENT: CAREER DEVELOPMENT CONSULTANT Assessment Results: Swallowing impairments Dysphagia Diagnosis: (mild oral dysphagia, possible oropharyngeal dysphagia) Evaluation/Treatment Tolerance: Patient tolerated treatment well Comments: Pt presented with mild oral dysphagia, with possible oropharyngeal dysphagia, secondary to acute respiratory failure and PML pn, with earlier possible aspiration event. Pt tolerated all thin liquid, thickened liquid, puree, and soft solid trials presented this session, without any overt clinical s/s of pulmonary compromise. Vital signs remained stable throughout meal; average of Sp02 cd82-950% on 5 LPM via NC. Pt agreeable to continue full liquid diet until swallow tx tomorrow; purees also allowed upon pt request. CAREER DEVELOPMENT CONSULTANT entered dietary order allowing banana on breakfast tray in AM. Medical Staff Made Aware: Yes Comments: RN, MD, and MANAGED CARE LIAISON TIME CALCULATION: CAREER DEVELOPMENT CONSULTANT Start Time: 1200 CAREER DEVELOPMENT CONSULTANT Stop Time: 1220 CAREER DEVELOPMENT CONSULTANT Time Calculation (min): 20 min Access Consultant Required: No ADMISSION DIAGNOSIS: Hypoxia [R09.02] Acute hypoxic respiratory failure (CMS/HCC V24, CMS/HCC V28) [J96.01] FAMILY/CAREGIVER PRESENT: No SUBJECTIVE SUBJECTIVE: Chart reviewed and cleared by RN for CAREER DEVELOPMENT CONSULTANT session; report of pt stable. Pt reported feeling improved since AM, excited for lunch. Pt remains on 5 LPM via NC. Pt with limited appetite. Pt without c/o of acute pain during visit. RESPIRATORY STATUS: Nasal Cannula PRECAUTIONS: Swallow Precautions: Aspiration MENTAL STATUS Alert Responsive Cooperative OBJECTIVE PAIN: OXYGEN THERAPY: Patient Activity: At rest Oxygen Therapy: Supplemental oxygen O2 Delivery Method: Nasal cannula O2 Flow Rate (L/min): 5 L/min TREATMENTS: Treatments: Swallow Function SWALLOW FUNCTION: Swallow/Oral Function Treatment Time Entry: 20 Swallow Activity 1: IDDSI 3 moderately thickened liquid (soup) x 6-8, self fed: mild anterior spillage onto chin, otherwise appropriate oral phase. no overt clinical s/s of pulmonary compromise. Swallow Activity 2: Thin liquids x 4 single sips, self fed, tea: appropriate oral phase without anyovert clinical s/s of pulmonary compromise. Swallow Activity 3: IDDSI 6 soft and bite sized x 4, self fed, banana: appropriate oral phase, no overt clinical s/s of pulmonary compromise. Swallow Activity 4: IDDSI 4 puree x 5-7, self fed, pudding: mild anterior spillage onto lips, no overt clinical s/s of pulmonary compromise Diet Recommendations: Full thin liquid diet (pt preference over puree diet) Swallow Comments: Pt received education regarding options for diet (with knowledge that pt declinedpureed diet): (1) conseverative option to continue on full liquid for the day, so she can rest fromher earlier possible aspiration event. Likely can advance diet tomorrow or (2) begin IDDSI 6 soft and bite sized diet now for increased quality of life during meals, however could increase SOB given fatigue from earlier event. All pt questions answered appropriately re: both options. Pt agreeable to continue on full liquid diet for the day, with continued evaluation tomorrow. ASPIRATION RISK: Recommendations: Dysphagia treatment Diet Solids Recommendation: No solids, see liquids Diet Liquids Recommendation: Thin liquids Liquid Administration Via: Cup Supervision Level: Supervision with meals Compensatory Swallowing Strategies: Upright as possible for all oral intake, Remain upright for 20-30 minutes after meals, Small bites/sips, Eat/feed slowly, External pacing, Slow rate of intake Recommended Medication Route: PO Recommended Medication Administration: Crushed (in puree) SPEECH AND LANGUAGE: CURRENT DIET ORDERED: Dietary Orders (From admission, onward) Start Ordered 06/25/25 1315 Adult diet [facility]; General, Modified Consistency Options for Liquids and Solids; Regular; Full Liquid Diet effective now Question Answer Comment Location [facility] Diet Type (req) General Diet Type (req) Modified Consistency Options for Liquids and Solids General Diet Regular Modified Consistency Options for Liquids and Solids Full Liquid 06/25/25 1314 PLAN CAREER DEVELOPMENT CONSULTANT PLAN: Treatment/Interventions: Swallow function CAREER DEVELOPMENT CONSULTANT Plan: Skilled CAREER DEVELOPMENT CONSULTANT CAREER DEVELOPMENT CONSULTANT Frequency: 2-5 days per week CAREER DEVELOPMENT CONSULTANT - Evaluation Status: Needs Re-Eval Diet Recommendations: Full thin liquid diet (pt preference over puree diet) DISCHARGE RECOMMENDATIONS Ongoing Skilled Speech-Language Pathology (CAREER DEVELOPMENT CONSULTANT) services at next level of care. EDUCATION EDUCATION: Education Documentation Modified Diet Training, taught by SKYLAR Patton at 06/25/2025 6:26 PM. Learner: Patient Readiness: Acceptance Method: Explanation Response: Verbalizes Understanding, Demonstrated Understanding Modified Diet Training, taught by SKYLAR Patton at 06/25/2025 6:05 PM. Learner: Significant Other, Patient Readiness: Acceptance Method: Explanation Response: Verbalizes Understanding Education Comments No comments found. GOALS GOALS: Encounter Problems Encounter Problems (Active) Template: Speech Therapy Problem: Swallowing Dates: Start: 06/25/25 Goal: Patient will tolerate the least restrictive diet consistency to allow for safe consumption ofdaily meals Dates: Start: 06/25/25 Expected End: 07/02/25 Outcomes Date/Time User Outcome 06/25/25 1826 SKYLAR Patton Progressing Encounter Problems (Resolved) There are no resolved problems. SKYLAR Patton 06/25/2025 * Angie José, PT - 06/25/2025 10:30 AM EST [facility] Physical Therapy Evaluation & Treatment PT Discharge Recommendations: Home PT (The pt states she wants to go home. Her mobility with walkerreq only S, but explained we will have to do stairs prior to discharge and she understands) Staff Recommendations for safe patient handling: supervision with walker Precautions Medical Precautions: Fall Risk (currently on 5L nasal 02) Safety Interventions: Call alonso within reach, ID band on, Bed alarm RUE Weight Bearing Status: Full LUE Weight Bearing Status: Full RLE Weight Bearing Status: Full LLE Weight Bearing Status: Full Fall prevention education provided including use of call light in hospital, use of appropriate assistive device, safe mobility techniques, and safety measures at home. PT Received On: 06/25/25 PT Start Time: 1030 PT Stop Time: 1100 PT Time Calculation (min): 30 min General Family/Caregiver Present: No Precautions Medical Precautions: Fall Risk (currently on 5L nasal 02) Safety Interventions: Call alonso within reach, ID band on, Bed alarm RUE Weight Bearing Status: Full LUE Weight Bearing Status: Full RLE Weight Bearing Status: Full LLE Weight Bearing Status: Full Cognition Overall Cognitive Status: Within Functional Limits Arousal/Alertness: Appropriate responses to stimuli Orientation Level: Oriented X4 Following Commands: Follows all commands and directions without difficulty Hearing: Intact Vision: Intact Speech: Intact Integumentary: no acute issues noted History of Present Illness: Patient is a 74 y.o. female admitted to [facility] on 06/24/2025. Problem List[1] Medical History[2] Surgical History[3] Social History Home Living Environment: Home Living Type of Home: [facility] Lives With: Spouse Home Adaptive Equipment: Walker - rolling Home Layout: Two level, 1/2 bath on main level, Stairs to alternate level with rails Alternate Level Stairs-Rails: Rail on the right going up Alternate Level Stairs-Number of Steps: 12 Home Access: Stairs to enter with rails Entrance Stairs-Rails: Rail on the right going up Entrance Stairs-Number of Steps: 2 Prior Function Level of Travis: Independent with mobility and functional transfers Ambulation Status: Household ambulator Receives Help From: Family Indoor Mobility Assistance: Independent Stairs Assistance : Independent Prior Device Use: No prior device use Which is your dominant hand?: Right General Assessment Access Consultant Services Is an duck bill operator used? : No ADDITIONAL COMMENTS: Chart reviewed. RN clears pt for session. Pt agrees to participate and presented in supine upon PT arrival. All lines in place. Gait belt utilized throughout treatment to maximize safety. Medical precautions observed appropriately. Initiated education on the importance of PT, bed mobility safety, Transfer Safety, Ambulation Safety , Therapy Plan of Care, Home Safety, Energy Conservations strategies, and importance of OOB activity . Pt verbalized understanding. EXIT STATUS: Session ended with patient supine, tray table and call light within reach, and RN made aware. Physical Therapy Assessment/Plan Rita Draper is a 74 y.o. female admitted to [facility] on 06/24/2025 for Hypoxia [R09.02] Acute hypoxic respiratory failure (CMS/[facility] V24, CMS/[facility] V28) [J96.01] . Pt presents with decreased activity tolerance below functional baseline. Pt performed bed mobility Independent, , Transfers with Supervision, FWW and ambulates Supervision with FWW 20 ft . Pt will benefit from skilled acute PT d uring hospital stay to improve the deficits listed above and optimize function. PT recommends Home PT (The pt states she wants to go home. Her mobility with walker req only S, but explained we will have to do stairs prior to discharge and she understands) when medically stable for safe discharge and to optimize functional mobility and independence. Goals Encounter Problems Encounter Problems (Active) Template: Physical Therapy Problem: PT Short Term Goals Dates: Start: 06/25/25 Goal: PT STG 1 the pt will climb 12 steps with 1 railing and supervision Dates: Start: 06/25/25 Expected End: 07/02/25 Goal: PT STG 2 the pt will ambulate 50' with a walker and supervision Dates: Start: 06/25/25 Expected End: 07/02/25 Encounter Problems (Resolved) There are no resolved problems. Education Documentation Mobility Training, taught by Angie José, PT at 06/25/2025 1:10 PM. Learner: Patient Readiness: Acceptance Method: Explanation Response: Verbalizes Understanding Comment: educated on the need to call for assistance for all mobility Education Comments No comments found. 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) CKD (chronic kidney disease) stage 3, GFR 30-59 ml/min (CMS/HCC V24, CMS/HCC V28) COPD with acute exacerbation (CMS/[facility] V24, CMS/[facility] V28) Depression Dermatochalasis of both upper eyelids Elevated rheumatoid factor Facial palsy GERD (gastroesophageal reflux disease) Headache Helicobacter positive gastritis Hypertension Hyperlipidemia Irritable bowel syndrome Multilevel degenerative disc disease Nuclear sclerosis of both eyes Occlusion of left carotid artery Osteopenia Positive Lyme disease serology Psoriasis Psoriatic arthritis (CMS/[facility] V24, CMS/[facility] V28) Renal calculi Seizure disorder ([facility] V24, [facility] V28[facility] Thrombocytopenia ([facility] V24) Vitamin D deficiency Pulmonary nodule Hilar lymphadenopathy Acute respiratory failure with hypoxia and hypercapnia ([facility] V24, [facility] V28) Lung nodule Rib pain on right side Exercise hypoxemia History of COVID-19 Cognitive impairment CAD in [place] artery Small cell lung cancer, left lower lobe ([facility] V24, [facility] V28) Fall Pulmonary emphysema ([facility] V24, [facility] V28) Former heavy cigarette smoker (20-39 per day) 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 ([facility] V24, [facility] V28) 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 ([facility] V24, [facility] V28) Acute hypoxic respiratory failure ([facility] V24, [facility] V28) [2] Past Medical History: Diagnosis Date Anxiety 07/24/2017 DX:Anxiety 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 Updated stable 12/01/17: No significant right internal carotid stenosis by Doppler CKD (chronic kidney disease) stage 3, GFR 30-59 ml/min ([facility] V24, [facility] V28) 03/13/2018 DX:CKD (chronic kidney disease) stage 3, GFR 30-59 ml/min ([facility]) COPD (chronic obstructive pulmonary disease) [place] [place] [facility] [place] 07/24/2017 DX:COPD (chronic obstructive pulmonary disease) ([facility]); COMMENT: Chronic bronchitis Depression 07/24/2017 DX:Depression Dermatochalasis [...] On Dilantin Thrombocytopenia (CMS/HCC V24) 07/24/2017 DX:Thrombocytopenia (HCC) Vitamin D deficiency 07/24/2017 DX:Vitamin D deficiency [3] Past Surgical History: Procedure Laterality Date APPENDECTOMY PROCEDURE: HISTORICAL APPENDECTOMY; COMMENT: age 10 BLEPHAROPLASTY DENTAL SURGERY wears partial bridge per pt OOPHORECTOMY Right PROCEDURE: HISTORICAL OOPHORECTOMY; COMMENT: partial OTHER SURGICAL HISTORY Left 09/2016 PROCEDURE: ID OPTX ILIAC TUBRST AVLS/WING FX FIXJ IF PRFRMD; COMMENT: s/p pelvic repair, [place] TONSILLECTOMY PROCEDURE: HISTORICAL TONSILLECTOMY UPPER GASTROINTESTINAL ENDOSCOPY 10/03/2018 PROCEDURE: UPPER GI ENDOSCOPY/EXAM; COMMENT: mild edema UPPER GASTROINTESTINAL ENDOSCOPY 02/13/2019 PROCEDURE: UPPER GI ENDOSCOPY/EXAM; COMMENT: non specific edema, biopsy pending * Yahaira David CCC-CAREER DEVELOPMENT CONSULTANT - 06/25/2025 9:30 AM EST Images from the original note were not included. Speech Language Pathology [facility] CAREER DEVELOPMENT CONSULTANT BEDSIDE SWALLOW EVALUATION NAME: Rita Draper DATE OF : 1950 ROOM: [address] [place] [address] RECOMMENDATIONS Recommendations: NPO (except for sips of water, until lunch) Diet Solids Recommendation: NPO Diet Liquids Recommendation: Other (Comment) (small sips water only) Liquid Administration Via: Cup Supervision Level: Supervision with meals Compensatory Swallowing Strategies: Upright as possible for all oral intake, Remain upright for 20-30 minutes after meals, Eat/feed slowly, Small bites/sips Recommended Medication Route: PO, Via alternative means Recommended Medication Administration: Liquid form if possible (if not, alternative means or crushed in puree) CAREER DEVELOPMENT CONSULTANT ASSESSMENT: CAREER DEVELOPMENT CONSULTANT Assessment Results: Swallowing impairments Dysphagia Diagnosis: (Concern for oropharyngeal dysphagia) Evaluation/Treatment Tolerance: Treatment limited secondary to medical complications Comments: Pt presented with suspected aspiration event during evaluation, concern for oropharyngealdysphagia. Pt currently admitted for acute respiratory failure and pnemonia dx. CXR concerning for mild inflammatory changes within the right middle lobe suggestive of a mild infectious or inflammatory process. Pt with PMH of bilateral lung cx, COPD, CVA, GERD, and facial palsy (2017), on 2 LPM at baseline. Pt began significant coughing fit following 2nd bite of regular consistency, continued for ~15 minutes; pt reported she felt she ate too fast, as she was excited to eat, and now she couldn't cough it out. At beginning of cough, CAREER DEVELOPMENT CONSULTANT retrieved vitals machine and noted Sp02 range of 83-86, balancing out at 88-89 once coughing frequency decreased. RN notified. RN increased Sp02 to 5 LPM,and Sp02 increased to 92-93. MD updated throughout encounter. Pt observed to tolerated thin liquidsvia single cup edge sip during episode. Recommend NPO, except for small sips of water for remainderof AM; CAREER DEVELOPMENT CONSULTANT to return and trial full liquid diet tray at lunch. Additional recommendation for updated CXR to assess for possible aspiration event. Medical Staff Made Aware: Yes Comments: RN, MD, and MANAGED CARE LIAISON Pt ID by: Self, Full Name and CAREER DEVELOPMENT CONSULTANT Received On: 06/25/25 Access Consultant Required: No TIME IN: 08 TIME OUT: 914 TOTAL TIME: 45 min SUBJECTIVE: Chart reviewed and patient cleared by RN for swallow evaluation. Patient seen at bedside in room, seated upright in bed with spouse present, agreeable to evaluation at this time. Pt reported no hx orpresent difficulties in swallowing liquids, solids, or medication; spouse agreeable. Pt stated she was hungry and excited to eat. Evaluation ended early d/t suspected aspiration event and need for increased Sp02. Pt without any c/o of pain during visit. Patient goal stated: to eat PRIOR LEVEL OF FUNCTIONING: at home - regular/thin, current hospitalization - IDDSI 7/0 thin liquids SWALLOW SCREEN: Principal Problem: Acute hypoxic respiratory failure ([facility] V24, [facility] V28) Date Noted: 06/24/2025 Resolved Problems: * No resolved hospital problems. * Hypoxia [R09.02] Acute hypoxic respiratory failure (CMS/[facility] V24, CMS/[facility] V28) [J96.01] No admission procedures for hospital encounter. Past Medical History Past Surgical History Medical History[1] Surgical History[2] IMAGING RESULTS MRI Brain Results for orders placed during the hospital encounter of 10/11/24 MR Brain wo and w Contrast Narrative PROCEDURE: Brain MRI INDICATION: Lung cancer staging TECHNIQUE: Multiplanar, multisequence MRI of the brain without and with contrast. 15 mL Dotarem injected intravenously from a 15 mL vial with the remainder discarded. COMPARISON: Ultrasound 02/02/2024. FINDINGS: No acute infarct, mass effect, or intracranial hemorrhage. Mild chronic small vessel ischemic change seen throughout the supratentorial and pontine white matter. No abnormal intracranial susceptibility artifact or enhancement. Mild diffuse cerebral volume loss with prominence of ventricles and sulci. No hydrocephalus. Small old infarcts seen in the left perirolandic region at the vertex. Abnormal left high cervical and intracranial internal carotid artery flow void which may be due to slow flow or occlusion. Remainder of the intracranial arterial flow voids are normal. Major dural venous sinuses enhance normally with contrast. Scattered mucosal thickening seen throughout the sinuses.. Trace bilateral mastoid fluid. Bilaterallens implants. Orbits and extracranial soft tissues are otherwise normal. No suspicious marrow replacing lesions throughout the calvarium or clivus. Impression No acute findings or intracranial metastatic disease. 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 Abnormal left internal carotid artery flow void may be due to slow flow or occlusion. Prior ultrasound demonstrated high-grade left proximal cervical internal carotid artery stenosis. CTA of the headand neck could evaluate further. -------- FINAL REPORT -------- Dictated By: SHAUN MILES Dictated Date: 10/11/2024 13:11 ET Assigned Physician: SHAUN MILES Reviewed and Electronically Signed By: SHAUN MILES Signed Date: 10/11/2024 13:31 ET Workstation ID: [id number] Transcribed By: Self Edit Transcribed Date: 10/11/2024 13:[address] Head No results found for this or any previous visit. Chest Portable Results for orders placed during the hospital encounter of 12/10/24 XR Chest 1 View Narrative HISTORY: The patient is a 74-year-old female [...] lung may be in the patient's breast. Impression Interstitial prominence the right lower lung, unchanged since 11/26/2024, consistent with bronchitis versus atypical or viral pneumonia. -------- FINAL REPORT -------- Dictated By: Michele Sanchez Dictated Date: 12/10/2024 09:38 ET Assigned Physician: Michele Sanchez Reviewed and Electronically Signed By: Michele Sanchez Signed Date: 12/10/2024 09:43 ET Workstation ID: [id number] Transcribed By: Self Edit Transcribed Date: 12/10/2024 09:38 ET Chest 2 View Results for orders placed during the hospital encounter of 01/02/25 XR Chest 2 Views Narrative XR CHEST 2 VIEWS INDICATION: chest pain TECHNIQUE: XR CHEST 2 VIEWS COMPARISON: No priors available. Impression FINDINGS/IMPRESSION: Normal heart size without congestive heart failure. No consolidation or effusion. Mild degenerative changes of the spine. Radiopaque markers in the chest. -------- FINAL REPORT -------- Dictated By: Hosea Velez Dictated Date: 01/02/2025 14:17 ET Assigned Physician: Hosea Velez Reviewed and Electronically Signed By: Hosea Velez Signed Date: 01/02/2025 14:19 ET Workstation ID: [id number] Transcribed By: Self Edit Transcribed Date: 01/02/2025 14:[address] Results for orders placed during the hospital encounter of 06/24/25 CT Angio Chest wo and/or w Contrast Narrative INDICATION: Acute on chronic hypoxia CT angiography of the chest with IV contrast. 3D/MIP post processing reconstructions were performed. COMPARISON: CT chest dated 04/15/25 at 13:03 EDT FINDINGS: There are no intraluminal filling defects to suggest pulmonary embolism. No evidence of right heart strain. Visualized thyroid is unremarkable. No supraclavicular or axillary lymphadenopathy. Ascending aorta and main pulmonary artery are normal in caliber. Aortic annular calcifications. No pericardial effusion. Normal esophagus. No mediastinal or hilar lymphadenopathy. No pleural effusion. No consolidation. Advanced upper lobe predominant emphysema. Trachea and central airways are clear. Mild diffuse bronchial wall thickening. No bronchiectasis. Patchy tree-in-bud nodularity within the right middle lobe anteriorly. Previously seen right hilar mass is not definitively identified on current imaging. Subpleural left lower lobe pulmonary nodule measuring 0.9 by 0.6 cm (series 4, image 29), previously measured 1.0 x 0.7 cm. No new or growing pulmonary nodule identified. Visualized portions of the upper abdomen are unremarkable. Flowing marginal osteophytes along the mid to lower thoracic spine. 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 No acute fracture or suspicious bone lesion. Mild leftward curvature of the lower thoracic spine. Impression 1. No evidence of pulmonary embolism. 2. Mild inflammatory changes within the right middle lobe suggestive of a mild infectious or inflammatory process. 3. Advanced emphysema with bronchial wall thickening consistent with smoking related lung injury. This document has been electronically signed by: Yimi Martin MD on 06/24/2025 18:44:48 ALLERGIES: Allergies[3] OBJECTIVE OXYGEN THERAPY: Patient Activity: At rest Oxygen Therapy: Supplemental oxygen O2 Delivery Method: Nasal cannula O2 Flow Rate (L/min): 2 L/min (began session at 2 LPM, ended at 5 LPM) PAIN ASSESSMENT: TRACHEOSTOMY: DYSPHAGIA SYMPTOMS REPORTED: Denies any swallowing issues FEEDING METHOD: Set Up Assistance ENDURANCE DURING MEALS: Fair MENTAL STATUS: Alert Responsive Cooperative SWALLOW BASELINE ASSESSMENT: Respiratory Status: Oxygen via nasal cannula Behavior/Cognition: Alert, Cooperative, Pleasant mood Dentition: Partial dentures upper Patient Positioning: Upright in bed Baseline Vocal Quality: Weak Volitional Cough: Strong Volitional Swallow: Within Functional Limits CURRENT DIET: Dietary Orders (From admission, onward) Start Ordered 06/25/25 1315 Adult diet [facility]; General, Modified Consistency Options for Liquids and Solids; Regular; Full Liquid Diet effective now Question Answer Comment Location [facility] Diet Type (req) General Diet Type (req) Modified Consistency Options for Liquids and Solids General Diet Regular Modified Consistency Options for Liquids and Solids Full Liquid 06/25/25 1314 MOTOR SPEECH: Labial ROM: Within Functional Limits Labial Symmetry: Within Functional Limits Labial Strength: Within Functional Limits Lingual Appearance: [place] Lingual ROM: Within Functional Limits Lingual Symmetry: Within Functional Limits Lingual Strength: (unable to assess) Facial ROM: (mildly reduced grossly) Facial Symmetry: Within Functional Limits Mandible: Other (Comment) (unable to assess) Vocal Quality: Exceptions to WFL Weak: Mild Intelligibility: Intelligible 100% CONSISTENCIES ASSESSED Yes Thin Presentation: Cup, Self Fed Oral: Within functional limits Pharyngeal: Within Functional Limits, Cough - delayed Amount: x 3 single sips via cup edge Comments: appropriate oral phase, continued coughing given suspected aspiration event during solid trials Solid/Regular Presentation: Self Fed, Bite Oral: (Unable to assess, pt began eating when CAREER DEVELOPMENT CONSULTANT was out of room getting sweetner for coffee) Pharyngeal: Cough - immediate, Cough - delayed, Change in vital signs, Other (Comment) (mild changein facial color, eyes watering, continued coughing for ~15 minutes) Amount: x 2 bites waffle Comments: Pt began eating when CAREER DEVELOPMENT CONSULTANT left room to retrieve sweetner for pt's coffee. Upon return, observation of significant coughing episode and pt's reported the second bite went down the wrong pipe. Pt destat to 83; RN informed and supplemental 02 increased to 5 LPM, where 02 stablized at 92-93. COGNITION: Overall Cognitive Status: Within Functional Limits Following Commands: Follows all commands and directions without difficulty CAREER DEVELOPMENT CONSULTANT ASSESSMENT: CAREER DEVELOPMENT CONSULTANT Assessment Results: Swallowing impairments Dysphagia Diagnosis: (Concern for oropharyngeal dysphagia) Evaluation/Treatment Tolerance: Treatment limited secondary to medical complications Comments: Pt presented with suspected aspiration event during evaluation, concern for oropharyngealdysphagia. Pt currently admitted for acute respiratory failure and pnemonia dx. CXR concerning for mild inflammatory changes within the right middle lobe suggestive of a mild infectious or inflammatory process. Pt with PMH of bilateral lung cx and COPD, on 2 LPM at baseline. Pt began significant coughing fit following 2nd bite of regular consistency, continued for ~15 minutes. At beginning of coughing, CAREER DEVELOPMENT CONSULTANT retrieved vitals machine and noted Sp02 range of 83-86, balancing out at 88-89 once coughing frequency decreased. RN notified. RN increased Sp02 to 5 LPM, and Sp02 increased to 92-93. MD updated throughout encounter. Pt observed to tolerated thin liquids via single cup edge sip during episode. Recommend NPO, except for small sips of water for remainder of AM; CAREER DEVELOPMENT CONSULTANT to return and trial full liquid diet tray at lunch. Additional recommendation for updated CXR to assess for possible aspir ation event. Medical Staff Made Aware: Yes Comments: RN, MD, and MANAGED CARE LIAISON PLAN OF CARE CAREER DEVELOPMENT CONSULTANT PLAN Treatment/Interventions: Swallow function CAREER DEVELOPMENT CONSULTANT Plan: Skilled CAREER DEVELOPMENT CONSULTANT CAREER DEVELOPMENT CONSULTANT Frequency: 2-5 days per week CAREER DEVELOPMENT CONSULTANT - Evaluation Status: Needs Re-Eval Diet Recommendations: NPO, except sips of water (liquid meds if possible, if not IV, if not crushedin puree) DISCHARGE RECOMMENDATIONS Ongoing Skilled Speech-Language Pathology (CAREER DEVELOPMENT CONSULTANT) services at next level of care. EDUCATION Education Documentation Modified Diet Training, taught by Yahaira David CCC-CAREER DEVELOPMENT CONSULTANT at 06/25/2025 6:05 PM. Learner: Significant Other, Patient Readiness: Acceptance Method: Explanation Response: Verbalizes Understanding Education Comments No comments found. GOALS Encounter Problems Encounter Problems (Active) Template: Speech Therapy Problem: Swallowing Dates: Start: 06/25/25 Goal: Patient will tolerate the least restrictive diet consistency to allow for safe consumption ofdaily meals Dates: Start: 06/25/25 Expected End: 07/02/25 Encounter Problems (Resolved) There are no resolved problems. 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 Updated stable 12/01/17: No significant right internal carotid stenosis by Doppler CKD (chronic kidney disease) stage 3, GFR 30-59 ml/min ([facility] V24, [facility] V28) 03/13/2018 DX:CKD (chronic kidney disease) stage 3, GFR 30-59 ml/min ([facility]) COPD (chronic obstructive pulmonary disease) ([facility]24, [facility] V28) 07/24/2017 DX:COPD (chronic obstructive pulmonary disease) ([facility]); COMMENT: Chronic bronchitis Depression 07/24/2017 DX:Depression Dermatochalasis [...] COMMENT: Right, small and nonobstructing Seizure disorder ([facility] V24, [facility] V28) 07/24/2017 DX:Seizure disorder ([facility]); COMMENT: 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 On Dilantin Thrombocytopenia ([facility] V24) 07/24/2017 DX:Thrombocytopenia ([facility]) Vitamin D deficiency 07/24/2017 DX:Vitamin D deficiency [2] Past Surgical History: Procedure Laterality Date APPENDECTOMY PROCEDURE: HISTORICAL APPENDECTOMY; COMMENT: age 10 BLEPHAROPLASTY DENTAL SURGERY wears partial bridge per pt OOPHORECTOMY Right PROCEDURE: HISTORICAL OOPHORECTOMY; COMMENT: partial OTHER SURGICAL HISTORY Left 09/2016 PROCEDURE: ID OPTX ILIAC TUBRST AVLS/WING FX FIXJ IF PRFRMD; COMMENT: s/p pelvic repair, [place]'s TONSILLECTOMY PROCEDURE: HISTORICAL TONSILLECTOMY UPPER GASTROINTESTINAL ENDOSCOPY 10/03/2018 PROCEDURE: UPPER GI ENDOSCOPY/EXAM; COMMENT: mild edema UPPER GASTROINTESTINAL ENDOSCOPY 02/13/2019 PROCEDURE: UPPER GI ENDOSCOPY/EXAM; COMMENT: non specific edema, biopsy pending [3] Allergies Allergen Reactions Aspirin Rash and Anaphylaxis Other Reaction(s): Rash/Dermatitis Penicillins Rash and Anaphylaxis Other Reaction(s): Rash/Dermatitis Azithromycin Nausea And Vomiting and Hives Per provider, upset stomach, to take with food. NOT allergic Tetracyclines Nausea And Vomiting Latex Hives Other Reaction(s): Hives/Urticaria Sulfa (Sulfonamide Antibiotics) Hives Other Reaction(s): Hives/Urticaria Tetracycline Nausea And Vomiting * SKYLAR Patton - 06/25/2025 9:00 AM EST Speech Language Pathology Therapy session was attempted for Rita Draper by SKYLAR Patton on 06/25/2025. The patient was unable to be seen for the following reason(s): With other team members; RT present at this time. Plan for return visit: Later today for additional attempt * Rahel Roberts RN - 06/25/2025 6:37 AM EST ED RN HANDOFF (All [place] Below Must Be Completed) Reason/Diagnosis for Admission: shortness of breath and increased o2 dependence Type of Admission: [] Medsurg, [x] Telemetry Already in a Hospital Bed: [x] Yes / [] No Room Considerations/Precautions (ex: fever, diarrhea, or any infectious concerns): [] Yes / [x] No Americanization Teacher: [x] Yes / [] No If YES, Cardiac Rhythm: [] NSR, [] SB, [] ST, [] A-FIB, [] A-Flutter, [] Pacemaker, [] 1st Degree HB, [] 2nd Degree HB, [] 3rd Degree HB Reason for Americanization Teacher: VS: Visit Vitals BP (!) 140/59 Pulse 84 Temp 37 ??C (98.6 ??F) Resp 18 Ht 1.626 m (64.02 ) Wt 72.8 kg (160 lb 7.9 oz) LMP (LMP Unknown) SpO2 95% BMI 27.54 kg/m?? OB Status Postmenopausal Smoking Status Former BSA 1.78 m?? Current Mental Status: A/O x [x]4, []3, []2, []1 Current Ambulation Status: stand/pivot, standby assist IV Access: [x] Yes / [] No Field IV present: [] Yes / [x] No Hx of Violence: [] Yes / [...] #): [x] No ED Summary of Care: comes in from oncologist with for sob, increased o2 requirement x3 dayswith worsening fatigue and weakness, hx of lung ca on chemo and continuous o2 2L. Visibly sob and tachypneic upon exertion in er. CT showed advanced emphyema and right middle lobe inflammatory changes suggestive of mild infectious or inflammatory process. Using bedside commode in er, tolerating maryjane d/pivot with mild assist. Submitted by and Phone Extension: raymond carrizales [phone] * Jess Fink MD - 06/24/2025 5:02 PM EST Rita Draper This patient was signed out to me by ED provider, Dr Nguyen. Briefly, the patient presented to the ED with shortness of breath, increased oxygen requirement in the setting of lung cancer on chemotherapy. Signed out to me pending CTA to rule out PE and for further evaluation of lung pathology. EKG/Rhythm strip interpretation: normal sinus rhythm, HR 88 bpm, narrow complex, poor R wave progression of anterior leads CT with concern for infectious or inflammatory process at the right middle lobe. No PE noted. Blood cultures already obtained, will cover with Levaquin based on allergy profile. Patient remainstachypneic at rest though currently is on her normal 2 L of home O2. Patient high risk for decompensation with her underlying lung cancer, COPD, and immune compromise. Will admit for further management. Discussed with Dr. Dumont for admission. * Fer Nguyen MD - 06/24/2025 12:46 PM EST Emergency Medicine Note Patient Name: Rita Draper Initial Evaluation: 06/24/2025 : 1950 Patient's PCP: Will Monroe MD Emergency Physician: Fer Nguyen MD History of Present Illness Chief Complaint: Chief Complaint Patient presents with Shortness of Breath Patient complaint of shortness of breath x 3 days. Patient has lung CA and is currently on chemo. Normally on oxygen at home 2 liters and oxygen sats in high 98 percent, She is working to breath and respiration are in the 30's. HPI: 74-year-old female with a history of lung cancer on chemo presents for 3 days of worsening shortness of breath. Patient is on baseline 2 L nasal cannula, now up to 4+ liters. Also endorses some chest tightness. Denies fevers chills cough congestion abdominal pain nausea vomiting diarrhea tachycardia dizziness lightheadedness palpitations. Previous History Medical History[1] Surgical History[2] Social History[3] Family History[4] is allergic to aspirin, penicillins, azithromycin, tetracyclines, latex, sulfa (sulfonamide antibiotics), and tetracycline. Medications Ordered Prior to Encounter[5] Physical Exam ED Triage Vitals [06/24/25 1312] Temp Heart Rate Resp BP 36.5 ??C (97.7 ??F) 76 (!) 32 (!) 179/80 SpO2 Temp Source Heart Rate Source Patient Position 97 % Oral Monitor Sitting BP Location FiO2 (%) Left arm;Upper -- GENERAL: Well-Appearing SKIN: Warm, dry, normal for ethnicity. No rashes. HEENT: Normal sclera, noninjected nonicteric CHEST: Normal peripheral perfusion, no edema PULMONARY: Moderate increased work of breathing, some accessory muscle use, good air movement ABDOMINAL: Nondistended NEURO: Alert and oriented, moving all extremities equally PSYCHIATRIC: Normal affect, fluid speech, good eye contact and appropriate demeanor. Results Labs Reviewed BASIC METABOLIC PANEL - Abnormal Result Value Sodium 136 Potassium 4.9 Chloride 102 CO2 29 Anion Gap 5 Glucose 126 (*) BUN 15 Creatinine 0.90 eGFR 66 BUN/Creatinine Ratio 16.7 Calcium 9.2 URINALYSIS WITH REFLEX MICROSCOPIC - Abnormal Specific [place] Urine 1.010 pH, Urine 7.5 Leukocytes, Urine Trace (*) Nitrite, Urine Negative Protein, Urine Trace Glucose, Urine Negative Ketones, Urine Negative Urobilinogen, Urine 0.2 Bilirubin, Urine Negative Blood, Urine Negative RBC, Urine 2.3 WBC, Urine 2.1 Squamous Epithelial, Urine 33 Bacteria, Urine Negative Hyaline Casts, Urine 1.2 CBC WITH AUTO DIFFERENTIAL - Abnormal WBC 3.6 (*) RBC 4.10 Hemoglobin 13.5 Hematocrit 43.9 MCV 106.8 (*) MCH 32.8 (*) MCHC 30.8 (*) RDW 11.8 Platelets 61 (*) MPV 11.2 (*) NRBC 0.0 NRBC Absolute 0.00 Neutrophils Relative 66.0 Lymphocytes Relative 20.1 Monocytes Relative 8.9 Eosinophils Relative 3.9 Basophils Relative 0.8 Immature Granulocytes Relative 0.3 Neutrophils Absolute 2.37 Lymphocytes Absolute 0.72 (*) Monocytes Absolute 0.32 Eosinophils Absolute 0.14 Basophils Absolute 0.03 Immature Granulocytes Absolute 0.01 RESPIRATORY VIRUS PANEL MOLECULAR STUDY - Normal Adenovirus Detection by PCR Not Detected Influenza A PCR Not Detected Influenza B PCR Not Detected Coronavirus 229E Not Detected Coronavirus HKU1 Not Detected Coronavirus OC43 Not Detected Coronavirus NL63 Not Detected Parainfluenza Virus 1 Not Detected Parainfluenza Virus 2 Not Detected Parainfluenza Virus 3 Not Detected Parainfluenza Virus 4 Not Detected RSV PCR Not Detected Human Metapneumovirus A and B Not Detected Rhinovirus/Enterovirus Not Detected Bordetella pertussis Not Detected Bordetella parapertussis Not Detected Mycoplasma pneumo by PCR Not Detected Chlamydia pneumoniae Not Detected SARS COV-2 Not Detected Narrative: Testing was performed using the [email or web address] Respiratory Pathogen PCR Assay. All results must [...] that are below the limit of detection. LACTATE, WITH REFLEX - Normal LACTIC ACID 0.8 TROPONIN I HIGH SENSITIVITY - Normal High Sensitivity Troponin I 8 Narrative: High levels of biotin in samples may falsely decrease hsTroponin values. Use caution when interpreting hsTroponin results in patients taking biotin who exhibit renal impairment (eGFR <60) or in patients taking more than 20 mg/day of biotin. B-TYPE NATRIURETIC PEPTIDE - Normal BNP 47 CULTURE BLOOD Culture, Blood Culture in progress CULTURE BLOOD Culture, Blood Culture in progress URINALYSIS WITH REFLEX MICROSCOPIC Narrative: The following orders were created for panel order Urinalysis with reflex microscopic. Procedure Abnormality Status --------- ------ Urinalysis with reflex ...[[id number]] Abnormal Final result Please view results for these tests on the individual orders. CBC AND DIFFERENTIAL Narrative: The following orders were created for panel order CBC and differential. Procedure Abnormality Status --------- ------ CBC auto differential[[id number]] Abnormal Final result Please view results for these tests on the individual orders. Abnormal Labs Reviewed BASIC METABOLIC PANEL - Abnormal; Notable for the following components: Result Value Glucose 126 (*) All other components within normal limits URINALYSIS WITH REFLEX MICROSCOPIC - Abnormal; Notable for the following components: Leukocytes, Urine Trace (*) All other components within normal limits CBC WITH AUTO DIFFERENTIAL - Abnormal; Notable for the following components: WBC 3.6 (*) MCV 106.8 (*) MCH 32.8 (*) MCHC 30.8 (*) Platelets 61 (*) MPV 11.2 (*) Lymphocytes Absolute 0.72 (*) All other components within normal limits CT Angio Chest wo and/or w Contrast (Results Pending) I have discussed the incidental/abnormal imaging and/or lab abnormalities with the patient and haveinstructed them the need for further evaluation and workup with their primary care doctor. Medical Decision Making Differential Diagnosis: Viral syndrome, pneumonia, PE, COPD exacerbation, CHF, ACS, anemia MDM: 74-year-old female with history of lung cancer on chemo presents for acute on chronic hypoxic respiratory failure. Possible viral syndrome evaluate lung viral panel. Wells pneumonia, will proceed directly to CT of the chest. Possible PE, evaluate CTPA. COPD exacerbation less likely, no wheeze on exam. Possible anemia, evaluate CBC. Low suspicion for CHF, patient appears euvolemic on exam, evaluate proBNP. Low suspicion for ACS, evaluate EKG, troponin. Clinical Impression: Shortness of breath, acute on chronic hypoxic respiratory failure SEPSIS Exemption: [ x ] It is unlikely this patient has sepsis at the time of my evaluation. Medications - No data to display ED Course as of 06/24/25 1649 Tue Jun 24, 2025 1458 Labs showed no leukocytosis or anemia, normal platelets. Normal electrolytes and renal function. BNP normal. Troponins are flat and normal. UA and viral panel pending. CTPA pending. [MG] 1511 Viral and UA panel are negative. CTPA pending. [MG] 1648 I, Dr. River Nguyen, signed this patient out pending further workup and evaluation. History and physical reviewed with oncoming team. At this point the pending portions of the work-up are: Follow-up CTPA reevaluation and disposition [MG] ED Course User Index [MG] Fer Nguyen MD Clinical Impressions as of 06/24/25 1649 Hypoxia Procedures Procedures Diagnosis 1. 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 Updated stable 12/01/17: No significant right internal carotid stenosis by Doppler CKD (chronic kidney disease) stage 3, GFR 30-59 ml/min ([facility] V24, [facility] V28) 03/13/2018 DX:CKD (chronic kidney disease) stage 3, GFR 30-59 ml/min ([facility]) COPD (chronic obstructive pulmonary disease) ([facility] V24, [facility] V28) 07/24/2017 DX:COPD (chronic obstructive pulmonary disease) ([facility]); COMMENT: Chronic bronchitis Depression 07/24/2017 DX:Depression Dermatochalasis [...] COMMENT: Right, small and nonobstructing Seizure disorder [place]) 07/24/2017 DX:Seizure disorder ([facility]); COMMENT: 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 On Dilantin Thrombocytopenia ([facility]) 07/24/2017 DX:Thrombocytopenia ([facility]) Vitamin D deficiency 07/24/2017 DX:Vitamin D deficiency [2] Past Surgical History: Procedure Laterality Date APPENDECTOMY PROCEDURE: HISTORICAL APPENDECTOMY; COMMENT: age 10 BLEPHAROPLASTY DENTAL SURGERY wears partial bridge per pt OOPHORECTOMY Right PROCEDURE: HISTORICAL OOPHORECTOMY; COMMENT: partial OTHER SURGICAL HISTORY Left 09/2016 PROCEDURE: ID OPTX ILIAC TUBRST AVLS/WING FX FIXJ IF PRFRMD; COMMENT: s/p pelvic repair, [place]'s TONSILLECTOMY PROCEDURE: HISTORICAL TONSILLECTOMY UPPER GASTROINTESTINAL ENDOSCOPY 10/03/2018 PROCEDURE: UPPER GI ENDOSCOPY/EXAM; COMMENT: mild edema UPPER GASTROINTESTINAL ENDOSCOPY 02/13/2019 PROCEDURE: UPPER GI ENDOSCOPY/EXAM; COMMENT: non specific edema, biopsy pending [3] Social History Tobacco Use Smoking status: Former Smokeless tobacco: Current Tobacco comments: E-Cigarettes Vaping Use Vaping status: Some Days Substances: Nicotine Substance Use Topics Alcohol use: No Drug use: No [4] Family History Adopted: Yes Problem Relation Name Age of Onset Coronary artery disease Mother at 32 Hypertension Father Chronic Lung Disease, depression/anxiety, glaucoma, arthritis Blindness Father Cataracts Father Glaucoma Father Arthritis Father Asthma Sister Chronic Lung Disease, RA Arthritis Sister Cancer Maternal Grandfather No Known Problems Aunt No Known Problems Uncle No Known Problems Other Macular degeneration Neg Hx Strabismus Neg Hx [5] No current facility-administered medications on file prior [...] if needed for wheezing. 75 mL 11 albuterol HFA (PROAIR HFA ; PROVENTIL HFA ; VENTOLIN HFA) 90 mcg/actuation inhaler Inhale 2 puffs by mouth every 4 (four) hours if needed for wheezing or shortness of breath. 36 g 5 ARIPiprazole (ABILIFY) 5 mg tablet Take 1 tablet (5 mg total) by mouth 1 (one) time each day. carvediloL (COREG) 12.5 mg tablet TAKE ONE TABLET TWICE DAILY 180 tablet 0 cloNIDine (CATAPRES) 0.1 mg tablet TAKE ONE TABLET TWICE DAILY 180 tablet 0 clopidogreL (PLAVIX) 75 mg tablet Take 1 tablet (75 mg total) by mouth 1 (one) time each day. 90 tablet 1 diazePAM (VALIUM) 10 mg [...] lungs 2 times daily. 3 each 3 furosemide (LASIX) 20 mg tablet Take 1 tablet (20 mg total) by mouth 1 (one) time each day. 90 each1 loperamide (Imodium A-D) 2 mg tablet Take 4 mg PO at onset of diarrhea, then 2 mg every two hours until diarrhea free for 12 hours. 60 tablet 2 mirtazapine (REMERON) 15 mg tablet Take 1.5 tablets (22.5 mg total) by mouth at bedtime. ondansetron ODT (ZOFRAN-ODT) 4 mg disintegrating tablet DISSOLVE ONE TABLET IN MOUTH EVERY EIGHT HOURS NEEDED FOR NAUSEA 30 each 0 phenytoin (DILANTIN) 100 mg ER capsule TAKE ONE CAPSULE TWICE DAILY 270 capsule 0 prochlorperazine (COMPAZINE) 10 mg tablet Take 1 tablet (10 mg total) by mouth every 6 (six) hours if needed for nausea or vomiting. 60 tablet 3 simvastatin (ZOCOR) 20 mg tablet Take 1 tablet (20 mg total) by mouth at bedtime. 90 tablet 1 tiotropium (Spiriva with HandiHaler) 18 mcg per inhalation capsule Place 1 capsule (18 mcg total) into inhaler and inhale 1 (one) time each day. 3 each 3 traMADoL (ULTRAM) 50 mg tablet Take 1 tablet (50 mg total) by mouth at bedtime as needed for moderate pain. Max Daily Amount: 50 mg (Patient not taking: Reported on 05/28/2025) 7 tablet 0 [DISCONTINUED] carvediloL (COREG) 12.5 mg tablet TAKE ONE TABLET TWICE DAILY 180 tablet 1 [DISCONTINUED] cloNIDine (CATAPRES) 0.1 mg tablet TAKE ONE TABLET TWICE DAILY 180 tablet 1 Fer Nguyen MD 06/24/25 9556 documented in this encounter Plan of Treatment Upcoming Encounters Date Type Department Care Team (Late st Contact Info) Description 07/03/2025 1:25 PM EST Office Visit Pulmonology [address] [phone] Jelena Hoff, C[address] [place] [phone] 07/08/2025 11:15 AM EST Office Visit [facility] Hematology Oncology [address] [place] [phone] Mihaela Barbour MD [address] [place] [phone] 07/08/2025 11:30 AM EST Appointment [facility] [address] [place] [address] [address] [place] [phone] 07/08/2025 2:30 PM EST Appointment [facility] Radiation Oncology [address] [place] [phone] Raymond Nash MD [address] [place] [phone] 07/16/2025 10:30 AM EST Office Visit Adult Medicine [address] [phone] Will Monroe MD [address] [place] [address] 08/20/2025 11:00 AM EST Office Visit Pulmonology [address] [phone] Jelena Hoff NP [address] [place] [phone] 03/03/2026 11:00 AM EDT Appointment [facility] Ultrasound [address] [place] [phone] 04/01/2026 11:30 AM EDT Office Visit Vascular Surgery - [place] [address] [place] [phone] Krupa Garcia MD [address] [place] [phone] Scheduled Referrals Name Type Priority Associated Diagnoses Orde r Schedule Ambulatory referral to Home Health Outpatient Referral Routine Small cell lung cancer, left lower lobe (CMS/HCC V24, CMS/HCC V28) 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 (CMS/HCC V24, CMS/HCC V28) COPD with acute exacerbation (CMS/HCC V24, CMS/HCC V28) Expected: 06/26/2025, Expires: 07/26/2025 documented as of this encounter Procedures Procedure Name Priority Date/Time Associated Diagnosis Comments CBC WITH AUTO DIFFERENTIAL Routine 06/26/2025 5:35 AM EST CBC AND DIFFERENTIAL Routine 06/26/2025 5:35 AM EST PHOSPHORUS Routine 06/26/2025 5:35 AM EST MAGNESIUM Routine 06/26/2025 5:35 AM EST BASIC METABOLIC PANEL Routine 06/26/2025 5:35 AM EST PEP THERAPY Routine 06/25/2025 7:16 AM EST VITAMIN B12 AND FOLATE Routine 06/25/2025 4:13 AM EST BASIC METABOLIC PANEL Routine 06/25/2025 4:13 AM EST MANUAL DIFFERENTIAL - SYSMEX WAM Routine 06/25/2025 3:13 AM EST CBC WITH AUTO DIFFERENTIAL Routine 06/25/2025 3:13 AM EST CBC AND DIFFERENTIAL Routine 06/25/2025 3:13 AM EST ECG ANNOTATED 06/25/2025 ECG 12-LEAD STAT 06/24/2025 6:[address] ANGIO CHEST WO AND/OR W CONTRAST STAT 06/24/2025 6:11 PM EST Hypoxia URINALYSIS WITH REFLEX MICROSCOPIC STAT 06/24/2025 2:25 PM EST URINALYSIS WITH REFLEX MICROSCOPIC STAT 06/24/2025 2:25 PM EST RESPIRATORY VIRUS PANEL MOLECULAR STUDY STAT 06/24/2025 1:52 PM EST TROPONIN I HIGH SENSITIVITY STAT 06/24/2025 1:52 PM EST B-TYPE NATRIURETIC PEPTIDE STAT 06/24/2025 1:52 PM EST LACTATE, WITH REFLEX STAT 06/24/2025 1:43 PM EST CBC WITH AUTO DIFFERENTIAL STAT 06/24/2025 1:43 PM EST CULTURE BLOOD STAT 06/24/2025 1:43 PM EST CULTURE BLOOD STAT 06/24/2025 1:43 PM EST CBC AND DIFFERENTIAL STAT 06/24/2025 1:43 PM EST BASIC METABOLIC PANEL STAT 06/24/2025 1:43 PM EST documented in this encounter Results * (ABNORMAL) CBC auto differential (06/26/2025 5:35 AM EST) [facility] WBC 4.3(L) 4.8 - 10.8 K/[facility] LAB HEMETOLOGY METHOD 06/26/2025 7:10 AM EST [facility] RBC 3.90 3.80 - 4.80 M/mcL LAB HEMETOLOGY METHOD 06/26/2025 7:10 AM [facility] Hemoglobin 12.7 11.5 - 16.0 g/dL LAB HEMETOLOGY METHOD 06/26/2025 7:10 AM [facility] Hematocrit 39.4 35.0 - 47.0 % LAB HEMETOLOGY METHOD 06/26/2025 7:10 AM [facility] MCV 101.3(H) 79.0 - 98.0 FL LAB HEMETOLOGY METHOD 06/26/2025 7:10 AM [facility] MCH 32.6(H) 27.0 - 32.0 pcg LAB HEMETOLOGY METHOD 06/26/2025 7:10 AM [facility] MCHC 32.2 32.0 - 37.0 g/dL LAB HEMETOLOGY METHOD 06/26/2025 7:10 AM [facility] RDW 11.5 11.0 - 15.0 % LAB HEMETOLOGY METHOD 06/26/2025 7:10 AM [facility] Platelets 109(L) 130 - 400 K/mcL LAB HEMETOLOGY METHOD 06/26/2025 7:10 AM [facility] MPV 10.6 7.0 - 11.0 FL LAB HEMETOLOGY METHOD 06/26/2025 7:10 AM [facility] NRBC 0.0 <1.0 % LAB HEMETOLOGY METHOD 06/26/2025 7:10 AM [facility] NRBC Absolute 0.00 <0.10 K/mcL LAB HEMETOLOGY METHOD 06/26/2025 7:10 AM [facility] Neutrophils Relative 88.0 % LAB HEMETOLOGY METHOD 06/26/2025 7:10 AM [facility] Lymphocytes Relative 7.6 % LAB HEMETOLOGY METHOD 06/26/2025 7:10 AM EST [facility] Monocytes Relative 3.9 % LAB HEMETOLOGY METHOD 06/26/2025 7:10 AM [facility] Eosinophils Relative 0.0 % LAB HEMETOLOGY METHOD 06/26/2025 7:10 AM [facility] Basophils Relative 0.0 % LAB HEMETOLOGY METHOD 06/26/2025 7:10 AM [facility] Immature Granulocytes Relative 0.5 % LAB HEMETOLOGY METHOD 06/26/2025 7:10 AM [facility] Neutrophils Absolute 3.82 1.50 - 7.00 K/mcL LAB HEMETOLOGY METHOD 06/26/2025 7:10 AM [facility] Lymphocytes Absolute 0.33(L) 1.00 - 5.00 K/mcL LAB HEMETOLOGY METHOD 06/26/2025 7:10 AM [facility] Monocytes Absolute 0.17(L) 0.20 - 1.00 K/mcL LAB HEMETOLOGY METHOD 06/26/2025 7:10 AM [facility] Eosinophils Absolute 0.00 0.00 - 0.50 K/mcL LAB HEMETOLOGY METHOD 06/26/2025 7:10 AM [facility] Basophils Absolute 0.00 0.00 - 0.20 K/mcL LAB HEMETOLOGY METHOD 06/26/2025 7:10 AM [facility] Immature Granulocytes Absolute 0.02 0.00 - 0.03 K/mcL LAB HEMETOLOGY METHOD 06/26/2025 7:10 AM [facility] Blood Venous blood specimen / Unknown Venipuncture / Unknown 06/26/2025 5:35 AM EST 06/26/2025 6:42 AM EST us Maria Fernanda Phillips NP LAB BLOOD ORDERABLES Final Resul t [facility] [address] [place] [address], [place] [phone] * Phosphorus (06/26/2025 5:35 AM EST) [facility] Phosphorus 2.5 2.5 - 4.5 mg/dL LAB CHEMISTRY METHOD 06/26/2025 7:39 AM EST [facility] Blood Venous blood specimen / Unknown Venipuncture / Unknown 06/26/2025 5:35 AM EST 06/26/2025 6:42 AM EST us Maria Fernanda Phillips NP LAB BLOOD ORDERABLES Final Resul t [facility] [address] [place] [address], [place] [phone] * Magnesium (06/26/2025 5:35 AM EST) [facility] Magnesium 2.2 1.9 - 2.6 mg/dL LAB CHEMISTRY METHOD 06/26/2025 7:39 AM EST [facility] Blood Venous blood specimen / Unknown Venipuncture / Unknown 06/26/2025 5:35 AM EST 06/26/2025 6:42 AM EST us Maria Fernanda Phillips NP LAB BLOOD ORDERABLES Final Resul t [facility] [address] [place] [address], [place] [phone] * (ABNORMAL) Basic metabolic panel (06/26/2025 5:35 AM EST) [facility] Sodium 137 133 - 145 mmol/L LAB CHEMISTRY METHOD 06/26/2025 7:39 AM EST [facility] Potassium 4.5 3.5 - 5.5 mmol/L LAB CHEMISTRY METHOD 06/26/2025 7:39 AM EST [facility] Chloride 99 96 - 110 mmol/L LAB CHEMISTRY METHOD 06/26/2025 7:39 AM [facility] CO2 33(H) 21 - 32 mmol/L LAB CHEMISTRY METHOD 06/26/2025 7:39 AM [facility] Anion Gap 5 3 - 11 LAB CHEMISTRY METHOD 06/26/2025 7:39 AM [facility] Glucose 162(H) 70 - 100 mg/dL LAB CHEMISTRY METHOD 06/26/2025 7:39 AM [facility] BUN 17 5 - 25 mg/dL LAB CHEMISTRY METHOD 06/26/2025 7:39 AM [facility] Creatinine 0.79 0.50 - 1.10 mg/dL LAB CHEMISTRY METHOD 06/26/2025 7:39 AM [facility] eGFR 78 >=60 mL/min/1. 73m2 LAB CHEMISTRY METHOD 06/26/2025 7:39 AM [facility] Comment:Calculation based on the Chronic Kidney Disease Epidemiology Collaboration (CKD-EPI) equation refit without adjustment for race. BUN/Creatinine Ratio 21.5 LAB CHEMISTRY METHOD 06/26/2025 7:39 AM [facility] Calcium 9.2 8.5 - 10.5 mg/dL LAB CHEMISTRY METHOD 06/26/2025 7:39 AM [facility] Blood Venous blood specimen / Unknown Venipuncture / Unknown 06/26/2025 5:35 AM EST 06/26/2025 6:42 AM EST us Maria Fernanda Phillips NP LAB BLOOD ORDERABLES Final Resul t [facility] [address] [place] [address], * (ABNORMAL) Basic metabolic panel (06/25/2025 4:13 AM EST) Sodium 138 133 - 145 mmol/L LAB CHEMISTRY METHOD 06/25/2025 5:19 AM [facility] Potassium 4.7 3.5 - 5.5 mmol/L LAB CHEMISTRY METHOD 06/25/2025 5:19 AM [facility] Chloride 100 96 - 110 mmol/L LAB CHEMISTRY METHOD 06/25/2025 5:19 AM [facility] CO2 34(H) 21 - 32 mmol/L LAB CHEMISTRY METHOD 06/25/2025 5:19 AM [facility] Anion Gap 4 3 - 11 LAB CHEMISTRY METHOD 06/25/2025 5:19 AM [facility] Glucose 128(H) 70 - 100 mg/dL LAB CHEMISTRY METHOD 06/25/2025 5:19 AM [facility] BUN 15 5 - 25 mg/dL LAB CHEMISTRY METHOD 06/25/2025 5:19 AM [facility] Creatinine 0.86 0.50 - 1.10 mg/dL LAB CHEMISTRY METHOD 06/25/2025 5:19 AM [facility] eGFR 70 >=60 mL/min/1. 73m2 LAB CHEMISTRY METHOD 06/25/2025 5:19 AM [facility] Comment:Calculation based on the Chronic Kidney Disease Epidemiology Collaboration (CKD-EPI) equation refit without adjustment for race. BUN/Creatinine Ratio 17.4 LAB CHEMISTRY METHOD 06/25/2025 5:19 AM [facility] Calcium 8.9 8.5 - 10.5 mg/dL LAB CHEMISTRY METHOD 06/25/2025 5:19 AM [facility] Blood Venous blood specimen / Unknown Venipuncture / Unknown 06/25/2025 4:13 AM EST 06/25/2025 4:17 AM EST us Sydnee DOWNING LAB BLOOD ORDERABLES Final Resu lt [facility] [address] [place] [address], [place] [phone] * (ABNORMAL) Vitamin B12 and folate (06/25/2025 4:13 AM EST) [facility] Vitamin B-12 210(L) 250 - 900 pcg/mL LAB CHEMISTRY METHOD 06/25/2025 5:10 AM [facility] Folate 9.2 2.8 - 17.0 ng/ml LAB CHEMISTRY METHOD 06/25/2025 5:10 AM [facility] Blood Venous blood specimen / Unknown Venipuncture / Unknown 06/25/2025 4:13 AM EST 06/25/2025 4:17 AM EST Sydnee DOWNING LAB BLOOD ORDERABLES Final Resu lt [facility] [address] [place] [address], * (ABNORMAL) Manual differential (06/25/2025 3:13 AM EST) [facility] Neutrophils % 76.0 % LAB HEMETOLOGY METHOD 06/25/2025 4:54 AM [facility] Lymphocytes % 12.0 % LAB HEMETOLOGY METHOD 06/25/2025 4:54 AM [facility] Monocytes % 3.0 % LAB HEMETOLOGY METHOD 06/25/2025 4:54 AM [facility] Eosinophils % 8.0 % LAB HEMETOLOGY METHOD 06/25/2025 4:54 AM [facility] Basophils % 1.0 % LAB HEMETOLOGY METHOD 06/25/2025 4:54 AM [facility] Neutrophils Absolute Manual 3.80 1.50 - 7.00 K/mcL LAB HEMETOLOGY METHOD 06/25/2025 4:54 AM [facility] Lymphocytes Absolute 0.60(L) 1.00 - 5.00 K/mcL LAB HEMETOLOGY METHOD 06/25/2025 4:54 AM EST [facility] Monocytes Absolute Manual 0.15(L) 0.20 - 1.00 K/[facility] LAB HEMETOLOGY METHOD 06/25/2025 4:54 AM [facility] Eosinophils Absolute Manual 0.40 0.00 - 0.50 K/[facility] LAB HEMETOLOGY METHOD 06/25/2025 4:54 AM EST [facility] Basophils Absolute Manual 0.05 0.00 - 0.20 K/[facility] LAB HEMETOLOGY METHOD 06/25/2025 4:54 AM [facility] Rbc Morphology Consistent with indices Consistent with indices, Normal for [place] LAB HEMETOLOGY METHOD 06/25/2025 4:54 AM [facility] Platelet Morphology - WAM Normal Normal LAB HEMETOLOGY METHOD 06/25/2025 4:54 AM [facility] Blood Venous blood specimen / Unknown Venipuncture / Unknown 06/25/2025 3:13 AM EST 06/25/2025 4:17 AM EST us Sydnee DOWNING LAB BLOOD ORDERABLES Final Resu lt [facility] [address] [place] [address], * (ABNORMAL) CBC auto differential (06/25/2025 3:13 AM EST) WBC 5.0 4.8 - 10.8 K/[facility] LAB HEMETOLOGY METHOD 06/25/2025 4:54 AM [facility] RBC 3.60(L) 3.80 - 4.80 M/[facility] LAB HEMETOLOGY METHOD 06/25/2025 4:54 AM [facility] Hemoglobin 11.5 11.5 - 16.0 g/dL LAB HEMETOLOGY METHOD 06/25/2025 4:54 AM [facility] Hematocrit 36.1 35.0 - 47.0 % LAB HEMETOLOGY METHOD 06/25/2025 4:54 AM [facility] MCV 101.1(H) 79.0 - 98.0 FL LAB HEMETOLOGY METHOD 06/25/2025 4:54 AM [facility] MCH 32.2(H) 27.0 - 32.0 pcg LAB HEMETOLOGY METHOD 06/25/2025 4:54 AM [facility] MCHC 31.9(L) 32.0 - 37.0 g/dL LAB HEMETOLOGY METHOD 06/25/2025 4:54 AM [facility] RDW 11.8 11.0 - 15.0 % LAB HEMETOLOGY METHOD 06/25/2025 4:54 AM [facility] Platelets LAB HEMETOLOGY METHOD 06/25/2025 4:54 AM [facility] Comment:Not measured. MPV 10.1 7.0 - 11.0 FL LAB HEMETOLOGY METHOD 06/25/2025 4:54 AM [facility] NRBC 0.0 <1.0 % LAB HEMETOLOGY METHOD 06/25/2025 4:54 AM [facility] NRBC Absolute 0.00 <0.10 K/mcL LAB HEMETOLOGY METHOD 06/25/2025 4:54 AM [facility] Blood Venous blood specimen / Unknown Venipuncture / Unknown 06/25/2025 3:13 AM EST 06/25/2025 4:[address] [facility] - 06/25/2025 4:54 AM EST [id number] us Sydnee DOWNING LAB BLOOD ORDERABLES Final Resu lt [facility] [address] [place] [address], [place] [phone] * ECG-Annotated (06/25/2025) Provider Ezequiel LARSON ECG ORDERABLES Final Result * ECG 12 lead (06/24/2025 6:51 PM EST) Ventricular Rate ECG 88 BPM GEMUSE Atrial Rate 88 BPM GEMUSE P-R Interval 170 ms GEMUSE QRS Duration 70 ms GEMUSE Q-T Interval 344 ms GEMUSE QTc 416 ms GEMUSE P Wave [place] 69 degrees GEMUSE R [place] 53 degrees GEMUSE T [place] 66 degrees GEMUSE ECG Interpretation Normal sinus rhythm Septal infarct (cited on or before 13-NOV-2024) Abnormal ECG When compared with ECG of 02-JAN-2025 15:08, No significant change was found Confirmed by Mauro KHOURY JOHN ([id number]) on 06/25/2025 3:04:57 PM GEMUSE 06/24/2025 6:51 PM EST 06/25/2025 3:04 PM EST Deangelo Victor MD ECG ORDERABLES Final Result GEMUSE * CT Angio Chest wo and/or w Contrast (06/24/2025 6:11 PM EST) Anatomical Region Laterality Modality Body Computed Tomogra phy 06/24/2025 6:44 PM EST Impressions 06/24/2025 6:44 PM EST 1. No evidence of pulmonary embolism. 2. Mild inflammatory changes within the right middle lobe suggestive of a mild infectious or inflammatory process. 3. Advanced emphysema with bronchial wall thickening consistent with smoking related lung injury. This document has been electronically signed by: Yimi Martin MD on 06/24/2025 18:44:48 Narrative 06/24/2025 6:44 PM EST INDICATION: Acute on chronic hypoxia CT angiography of the chest with IV contrast. 3D/MIP post processing reconstructions were performed. COMPARISON: CT chest dated 04/15/25 at 13:03 EDT FINDINGS: There are no intraluminal filling defects to suggest pulmonary embolism. No evidence of right heart strain. Visualized thyroid is unremarkable. No supraclavicular or axillary lymphadenopathy. Ascending aorta and main pulmonary artery are normal in caliber. Aortic annular calcifications. No pericardial effusion. Normal esophagus. No mediastinal or hilar lymphadenopathy. No pleural effusion. No consolidation. Advanced upper lobe predominant emphysema. Trachea and central airways are clear. Mild diffuse bronchial wall thickening. No bronchiectasis. Patchy tree-in-bud nodularity within the right middle lobe anteriorly. Previously seen right hilar mass is not definitively identified on current imaging. Subpleural left lower lobe pulmonary nodule measuring 0.9 by 0.6 cm (series 4, image 29), previously measured 1.0 x 0.7 cm. No new or growing pulmonary nodule identified. Visualized portions of the upper abdomen are unremarkable. Flowing marginal osteophytes along the mid to lower thoracic spine. 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 No acute fracture or suspicious bone lesion. Mild leftward curvature of the lower thoracic spine. Procedure Note Yimi Martin MD - 06/24/2025 INDICATION: Acute on chronic hypoxia CT angiography of the chest with IV contrast. 3D/MIP post processing reconstructions were performed. COMPARISON: CT chest dated 04/15/25 at 13:03 EDT FINDINGS: There are no intraluminal filling defects to suggest pulmonary embolism. No evidence of right heart strain. Visualized thyroid is unremarkable. No supraclavicular or axillary lymphadenopathy. Ascending aorta and main pulmonary artery are normal in caliber. Aortic annular calcifications. No pericardial effusion. Normal esophagus. No mediastinal or hilar lymphadenopathy. No pleural effusion. No consolidation. Advanced upper lobe predominant emphysema. Trachea and central airways are clear. Mild diffuse bronchial wall thickening. No bronchiectasis. Patchy tree-in-bud nodularity within the right middle lobe anteriorly. Previously seen right hilar mass is not definitively identified oncurrent imaging. Subpleural left lower lobe pulmonary nodule measuring 0.9 by 0.6 cm (series 4, image 29), previously measured 1.0 x 0.7 cm. No new or growing pulmonary nodule identified. Visualized portions of the upper abdomen are unremarkable. Flowing marginal osteophytes along the mid to lower thoracic spine. 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 No acute fracture or suspicious bone lesion. Mild leftward curvature of the lower thoracic spine. IMPRESSION: 1. No evidence of pulmonary embolism. 2. Mild inflammatory changes within the right middle lobe suggestive ofa mild infectious or inflammatory process. 3. Advanced emphysema with bronchial wall thickening consistent with smoking related lung injury. This document has been electronically signed by: Yimi Martin MD on 06/24/2025 18:44:48 Fer Nguyen MD IM CT PROCEDURES Final Result * (ABNORMAL) Urinalysis with reflex microscopic (06/24/2025 2:25 PM EST) Specific [place] Urine 1.010 1.003 - 1.030 LAB URINALYSIS - AUTOMATED METHOD 06/24/2025 3:10 PM [facility] pH, Urine 7.5 5.0 - 8.0 pH LAB URINALYSIS - AUTOMATED METHOD 06/24/2025 3:10 PM [facility] Leukocytes, Urine Trace(A) Negative LAB URINALYSIS - AUTOMATED METHOD 06/24/2025 3:10 PM [facility] Nitrite, Urine Negative Negative LAB URINALYSIS - AUTOMATED METHOD 06/24/2025 3:10 PM [facility] Protein, Urine Trace <=Trace mg/dL LAB URINALYSIS - AUTOMATED METHOD 06/24/2025 3:10 PM [facility] Glucose, Urine Negative Negative mg/dL LAB URINALYSIS - AUTOMATED METHOD 06/24/2025 3:10 PM [facility] Ketones, Urine Negative Negative mg/dL LAB URINALYSIS - AUTOMATED METHOD 06/24/2025 3:10 PM [facility] Urobilinogen, Urine 0.2 0.2 - 1.0 mg/dL LAB URINALYSIS - AUTOMATED METHOD 06/24/2025 3:10 PM [facility] Bilirubin, Urine Negative Negative LAB URINALYSIS - AUTOMATED METHOD 06/24/2025 3:10 PM [facility] Blood, Urine Negative Negative LAB URINALYSIS - AUTOMATED METHOD 06/24/2025 3:10 PM [facility] RBC, Urine 2.3 0 - 4 /HPF LAB URINALYSIS - AUTOMATED METHOD 06/24/2025 3:10 PM [facility] WBC, Urine 2.1 0 - 4 /HPF LAB URINALYSIS - AUTOMATED METHOD 06/24/2025 3:10 PM [facility] Squamous Epithelial, Urine 33 0 - 60 /LPF LAB URINALYSIS - AUTOMATED METHOD 06/24/2025 3:10 PM [facility] Bacteria, Urine Negative Negative /HPF LAB URINALYSIS - AUTOMATED METHOD 06/24/2025 3:10 PM [facility] Hyaline Casts, Urine 1.2 0 - 3 /LPF LAB URINALYSIS - AUTOMATED METHOD 06/24/2025 3:10 PM [facility] Urine Urine specimen obtained by clean catch procedure / Unknown Non-blood Collection / Unknown 06/24/2025 2:25 PM EST 06/24/2025 3:00 PM EST us Fer Nguyen MD LAB URINE ORDERABLES Final Resu lt [facility] [address] [place] [address], * B-Type Natriuretic Peptide (BNP) (06/24/2025 1:52 PM EST) BNP 47 <=100 pcg/mL LAB CHEMISTRY METHOD 06/24/2025 2:55 PM EST [facility] Blood Venous blood specimen / Unknown Venipuncture / Unknown 06/24/2025 1:52 PM EST 06/24/2025 2:09 PM EST us Fer Nguyen MD LAB BLOOD ORDERABLES Final Resu lt [facility] [address] [place] [address], * Troponin I High Sensitivity (06/24/2025 1:52 PM EST) [facility] High Sensitivity Troponin I 8 <=54 ng/L LAB CHEMISTRY METHOD 06/24/2025 2:58 PM EST [facility] Blood Venous blood specimen / Unknown Venipuncture / Unknown 06/24/2025 1:52 PM EST 06/24/2025 2:[address] [facility] - 06/24/2025 2:58 PM EST High levels of biotin in samples may falsely decrease hsTroponin values. Use caution when interpreting hsTroponin results in patients taking biotin who exhibit renal impairment (eGFR <60) or in patients taking more than 20 mg/day of biotin. Fer Nguyen MD LAB BLOOD ORDERABLES Final Resu lt [facility] [address] [place] [address], [place] [phone] * Respiratory virus panel molecular study (06/24/2025 1:52 PM EST) [facility] Adenovirus Detection by PCR Not Detected Not Detected LAB MICROBIOLOGY METHOD 06/24/2025 3:01 PM [facility] Influenza A PCR Not Detected Not Detected LAB MICROBIOLOGY METHOD 06/24/2025 3:01 PM [facility] Influenza B PCR Not Detected Not Detected LAB MICROBIOLOGY METHOD 06/24/2025 3:01 PM [facility] Coronavirus 229E Not Detected Not Detected LAB MICROBIOLOGY METHOD 06/24/2025 3:01 PM [facility] Coronavirus HKU1 Not Detected Not Detected LAB MICROBIOLOGY METHOD 06/24/2025 3:01 PM [facility] Coronavirus OC43 Not Detected Not Detected LAB MICROBIOLOGY METHOD 06/24/2025 3:01 PM [facility] Coronavirus NL63 Not Detected Not Detected LAB MICROBIOLOGY METHOD 06/24/2025 3:01 PM [facility] Parainfluenza Virus 1 Not Detected Not Detected LAB MICROBIOLOGY METHOD 06/24/2025 3:01 PM [facility] Parainfluenza Virus 2 Not Detected Not Detected LAB MICROBIOLOGY METHOD 06/24/2025 3:01 PM [facility] Parainfluenza Virus 3 Not Detected Not Detected LAB MICROBIOLOGY METHOD 06/24/2025 3:01 PM [facility] Parainfluenza Virus 4 Not Detected Not Detected LAB MICROBIOLOGY METHOD 06/24/2025 3:01 PM [facility] RSV PCR Not Detected Not Detected LAB MICROBIOLOGY METHOD 06/24/2025 3:01 PM [facility] Human Metapneumovirus A and B Not Detected Not Detected LAB MICROBIOLOGY METHOD 06/24/2025 3:01 PM [facility] Rhinovirus/Entero virus Not Detected Not Detected LAB MICROBIOLOGY METHOD 06/24/2025 3:01 PM [facility] Bordetella pertussis Not Detected Not Detected LAB MICROBIOLOGY METHOD 06/24/2025 3:01 PM [facility] Bordetella parapertussis Not Detected Not Detected LAB MICROBIOLOGY METHOD 06/24/2025 3:01 PM [facility] Mycoplasma pneumo by PCR Not Detected Not Detected LAB MICROBIOLOGY METHOD 06/24/2025 3:01 PM [facility] Chlamydia pneumoniae Not Detected Not Detected LAB MICROBIOLOGY METHOD 06/24/2025 3:01 PM [facility] SARS COV-2 Not Detected Not Detected LAB MICROBIOLOGY METHOD 06/24/2025 3:01 PM [facility] Swab Both anterior nares / Unknown Non-blood Collection / Unknown 06/24/2025 1:52 PM EST 06/24/2025 2:[address] [facility] - 06/24/2025 3:01 PM EST Testing was performed using the [employer] Respiratory Pathogen PCR Assay. All results must [...] are below the limit of detection. us Fer Nguyen MD LAB MICROBIOLOGY - [facility] Final Result [facility] [address] [place] [address], * (ABNORMAL) CBC auto differential (06/24/2025 1:43 PM EST) WBC 3.6(L) 4.8 - 10.8 K/mcL LAB HEMETOLOGY METHOD 06/24/2025 2:20 PM [facility] RBC 4.10 3.80 - 4.80 M/mcL LAB HEMETOLOGY METHOD 06/24/2025 2:20 PM [facility] Hemoglobin 13.5 11.5 - 16.0 g/dL LAB HEMETOLOGY METHOD 06/24/2025 2:20 PM [facility] Hematocrit 43.9 35.0 - 47.0 % LAB HEMETOLOGY METHOD 06/24/2025 2:20 PM [facility] MCV 106.8(H) 79.0 - 98.0 FL LAB HEMETOLOGY METHOD 06/24/2025 2:20 PM [facility] MCH 32.8(H) 27.0 - 32.0 pcg LAB HEMETOLOGY METHOD 06/24/2025 2:20 PM [facility] MCHC 30.8(L) 32.0 - 37.0 g/dL LAB HEMETOLOGY METHOD 06/24/2025 2:20 PM [facility] RDW 11.8 11.0 - 15.0 % LAB HEMETOLOGY METHOD 06/24/2025 2:20 PM [facility] Platelets 61(L) 130 - 400 K/mcL LAB HEMETOLOGY METHOD 06/24/2025 2:20 PM [facility] MPV 11.2(H) 7.0 - 11.0 FL LAB HEMETOLOGY METHOD 06/24/2025 2:20 PM [facility] NRBC 0.0 <1.0 % LAB HEMETOLOGY METHOD 06/24/2025 2:20 PM [facility] NRBC Absolute 0.00 <0.10 K/mcL LAB HEMETOLOGY METHOD 06/24/2025 2:20 PM [facility] Neutrophils Relative 66.0 % LAB HEMETOLOGY METHOD 06/24/2025 2:20 PM [facility] Lymphocytes Relative 20.1 % LAB HEMETOLOGY METHOD 06/24/2025 2:20 PM [facility] Monocytes Relative 8.9 % LAB HEMETOLOGY METHOD 06/24/2025 2:20 PM [facility] Eosinophils Relative 3.9 % LAB HEMETOLOGY METHOD 06/24/2025 2:20 PM [facility] Basophils Relative 0.8 % LAB HEMETOLOGY METHOD 06/24/2025 2:20 PM [facility] Immature Granulocytes Relative 0.3 % LAB HEMETOLOGY METHOD 06/24/2025 2:20 PM [facility] Neutrophils Absolute 2.37 1.50 - 7.00 K/mcL LAB HEMETOLOGY METHOD 06/24/2025 2:20 PM [facility] Lymphocytes Absolute 0.72(L) 1.00 - 5.00 K/mcL LAB HEMETOLOGY METHOD 06/24/2025 2:20 PM EST [facility] Monocytes Absolute 0.32 0.20 - 1.00 K/mcL LAB HEMETOLOGY METHOD 06/24/2025 2:20 PM EST [facility] Eosinophils Absolute 0.14 0.00 - 0.50 K/mcL LAB HEMETOLOGY METHOD 06/24/2025 2:20 PM EST [facility] Basophils Absolute 0.03 0.00 - 0.20 K/[facility] HEMETOLOGY METHOD 06/24/2025 2:20 PM [facility] Immature Granulocytes Absolute 0.01 0.00 - 0.03 K/[facility] LAB HEMETOLOGY METHOD 06/24/2025 2:20 PM [facility] Blood Venous blood specimen / Unknown Venipuncture / Unknown 06/24/2025 1:43 PM EST 06/24/2025 1:58 PM EST us Fer Nguyen MD LAB BLOOD ORDERABLES Final Resu lt [facility] [address] [place] [address], * (ABNORMAL) Basic metabolic panel (06/24/2025 1:43 PM EST) Sodium 136 133 - 145 mmol/L LAB CHEMISTRY METHOD 06/24/2025 2:41 PM [facility] Potassium 4.9 3.5 - 5.5 mmol/L LAB CHEMISTRY METHOD 06/24/2025 2:41 PM [facility] Chloride 102 96 - 110 mmol/L LAB CHEMISTRY METHOD 06/24/2025 2:41 PM [facility] CO2 29 21 - 32 mmol/L LAB CHEMISTRY METHOD 06/24/2025 2:41 PM [facility] Anion Gap 5 3 - 11 LAB CHEMISTRY METHOD 06/24/2025 2:41 PM EST [facility] Glucose 126(H) 70 - 100 mg/dL LAB CHEMISTRY METHOD 06/24/2025 2:41 PM [facility] BUN 15 5 - 25 mg/dL LAB CHEMISTRY METHOD 06/24/2025 2:41 PM [facility] Creatinine 0.90 0.50 - 1.10 mg/dL LAB CHEMISTRY METHOD 06/24/2025 2:41 PM [facility] eGFR 66 >=60 mL/min/1. 73m2 LAB CHEMISTRY METHOD 06/24/2025 2:41 PM [facility] Comment:Calculation based on the Chronic Kidney Disease Epidemiology Collaboration (CKD-EPI) equation refit without adjustment for race. BUN/Creatinine Ratio 16.7 LAB CHEMISTRY METHOD 06/24/2025 2:41 PM [facility] Calcium 9.2 8.5 - 10.5 mg/dL LAB CHEMISTRY METHOD 06/24/2025 2:41 PM [facility] Blood Venous blood specimen / Unknown Venipuncture / Unknown 06/24/2025 1:43 PM EST 06/24/2025 1:58 PM EST us Fer Nguyen MD LAB BLOOD ORDERABLES Final Resu lt [facility] [address] [place] [address], [place] [phone] * Lactate, with reflex (06/24/2025 1:43 PM EST) LACTIC ACID 0.8 0.4 - 2.0 mmol/L LAB CHEMISTRY METHOD 06/24/2025 2:41 PM [facility] Blood Venous blood specimen / Unknown Venipuncture / Unknown 06/24/2025 1:43 PM EST 06/24/2025 1:57 PM EST us Fer Nguyen MD LAB BLOOD ORDERABLES Final Resu lt Performing Organization Address [facility] Co de Phone Number [facility] [address] [place] [address], [place] [phone] * Culture blood (06/24/2025 1:43 PM EST) Culture, Blood No growth at 5 days 06/29/2025 3:01 PM EST [facility] Blood Venous blood specimen / Unknown Venipuncture / Unknown 06/24/2025 1:43 PM EST 06/24/2025 1:57 PM EST us Fer Nguyen MD LAB MICROBIOLOGY - GENERAL TIFFANIE MUÑOZ Final Result Performing Organization Address [facility] Co de Phone Number [facility] [address] [place] [address], [place] [phone] * Culture blood (06/24/2025 1:43 PM EST) Culture, Blood No growth at 5 days 06/29/2025 3:01 PM EST [facility] Blood Venous blood specimen / Unknown Venipuncture / Unknown 06/24/2025 1:43 PM EST 06/24/2025 1:57 PM EST us Fer Nguyen MD LAB MICROBIOLOGY - GENERAL TIFFANIE MUÑOZ Final Result Performing Organization Address [facility] Co de Phone Number [facility] [address] [place] [address], [place] [phone] documented in this encounter Visit Diagnoses Diagnosis Acute hypoxic respiratory failure (CMS/HCC V24, CMS/HCC V28)- Primary Hypoxia Hypoxemia Small cell lung cancer, left lower lobe (CMS/HCC V24, CMS/HCC V28) 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 (CMS/HCC V24, CMS/HCC V28) COPD with acute exacerbation (CMS/HCC V24, CMS/HCC V28) documented in this encounter Admitting Diagnoses Diagnosis Acute hypoxic respiratory failure (CMS/HCC V24, CMS/HCC V28) documented in this encounter Administered Medications Inactive Administered Medications - up to 3 most recent administrations Medication Order MAR Action Action Date Dose Rate Site albuterol 2.5 mg /3 mL (0.083 %) nebulizer solution 2.5 mg 2.5 mg, nebulization, Every 6 hours PRN, wheezing, Starting on Mon06/25/25 at 0716 ARIPiprazole (ABILIFY) tablet 5 mg 5 mg, oral, Daily, First dose on Mon06/25/25 at 0900 Given 06/26/2025 8:38 AM EST 5 mg Given 06/25/2025 8:36 AM EST 5 mg atorvastatin (LIPITOR) tablet 10 mg 10 mg, oral, Nightly, First dose on Mon06/24/25 at 2100 Given 06/25/2025 9:44 PM EST 10 mg Given 06/24/2025 10:47 PM EST 10 mg budesonide (PULMICORT) 0.5 mg/2 mL nebulizer solution 0.5 mg 0.5 mg, nebulization, 2 times daily, First dose on Mon06/25/25 at 0800, Rinse mouth with water after use to reduce aftertaste and incidence of candidiasis. Do not swallow. Given 06/26/2025 7:57 AM EST 0. 5 mg Given 06/25/2025 8:32 PM EST 0.5 mg Given 06/25/2025 8:50 AM EST 0.5 mg carvediloL (COREG) tablet 12.5 mg 12.5 mg, oral, 2 times daily, First dose on Mon06/24/25 at 2100, Hold If sbp < 100 or HR < 60 Given 06/26/2025 8:39 AM EST 12.5 mg Given 06/25/2025 9:44 PM EST 12.5 mg Given 06/25/2025 8:36 AM EST 12.5 mg cloNIDine (CATAPRES) tablet 0.1 mg 0.1 mg, oral, 2 times daily, First dose on Mon06/24/25 at 2100, Hold if sbp < 110 Given 06/26/2025 8:39 AM EST 0.1 m g Given 06/25/2025 9:44 PM EST 0.1 mg Given 06/25/2025 8:36 AM EST 0.1 mg clopidogreL (PLAVIX) tablet 75 mg 75 mg, oral, Daily, First dose on Mon06/25/25 at 0900 Given 06/26/2025 8:39 AM EST 75 mg Given 06/25/2025 8:35 AM EST 75 mg diazePAM (VALIUM) tablet 10 mg 10 mg, oral, Every 8 hours PRN, anxiety, Starting on Mon06/24/25 at 2046, for anxiety HOLD FOR SEDATION Given 06/25/2025 8:37 AM EST 10 mg enoxaparin (LOVENOX) injection 40 mg 40 mg, subcutaneous, Daily, First dose on Mon06/25/25 at 1030, Indication: VTE/PE Prophylaxis Given 06/26/2025 8:39 AM EST 40 mg Left Lower Abdomen Given 06/25/2025 10:32 AM EST 40 mg R ight Lower Abdomen formoterol (PERFOROMIST) 20 mcg/2 mL nebulizer solution 20 mcg 20 mcg, nebulization, 2 times daily, First dose on Mon06/24/25 at 2100, Therapeutic substitution for ADVAIR DISKUS 250/50 is budesonide neb daily and formoterol neb twice daily. Given 06/24/2025 10:46 PM EST 20 mcg guaiFENesin (MUCINEX) 12 hr tablet 600 mg 600 mg, oral, Every 12 hours scheduled, First dose on Mon06/25/25 at 0900, Do not crush, chew, or split. Given 06/26/2025 8:39 AM EST 600 mg Given 06/25/2025 9:44 PM EST 600 mg Given 06/25/2025 8:36 AM EST 600 mg hydrALAZINE (APRESOLINE) injection 10 mg 10 mg, intravenous, Every 4 hours PRN, systolic BP greater than:, Give for Systolic Blood pressure greater than 170, Starting on Mon06/25/25 at 1048 iopamidoL (ISOVUE-370) 370 mg iodine /mL (76 %) injection 90 mL 90 mL, intravenous, Once in imaging, Starting on Mon06/24/25 at 1805, For 1 dose Given 06/24/2025 6:07 PM EST 90 mL ipratropium-albuteroL (DUONEB) 0.5-2.5 mg/3 mL nebulizer solution 3 mL 3 mL, nebulization, Every 6 hours, First dose on Mon06/25/25 at 0716 Given 06/26/2025 7:57 AM EST 3 mL Given 06/26/2025 1:32 AM EST 3 mL Given 06/25/2025 8:32 PM EST 3 mL levoFLOXacin (LEVAQUIN) IVPB 750 mg 750 mg, intravenous, at 100 mL/hr, Administer over 90 Minutes, Once, On Mon06/24/25 at 1905, For 1 dose, Indication: Pneumonia, Community Acquired New Bag 06/24/2025 7:44 PM EST 750 mg 100 mL/hr levoFLOXacin (LEVAQUIN) IVPB 750 mg 750 mg, intravenous, at 100 mL/hr, Administer over 90 Minutes, Every 24 hours, First dose on Mon06/25/25 at 1900, For 7 days, Indication: Pneumonia, Community Acquired New Bag 06/25/2025 6:52 PM EST 750 mg 100 mL/hr LORazepam (ATIVAN) injection 0.5 mg 0.5 mg, intravenous, Every 8 hours PRN, anxiety, Starting on Mon06/25/25 at 1049, Prior to IV use, lorazepam injection should be DILUTED with an equal volume of compatible solution; Rate of administration should NOT exceed 2 mg/min. Given 06/25/2025 10:05 PM EST 0.5 mg methylPREDNISolone sodium succ (SOLU-Medrol) injection 60 mg 60 mg, intravenous, Every 6 hours scheduled, First dose on Mon06/25/25 at 0730, Reconstitute each 125 mg vial with 2 mL sterile water for injection to a concentration of 62.5 mg/mL. Given 06/26/2025 5:27 AM EST 60 mg Given 06/26/2025 12:49 AM EST 60 mg Given 06/25/2025 6:52 PM EST 60 mg mirtazapine (REMERON) tablet 22.5 mg 22.5 mg, oral, Nightly, First dose on Mon06/24/25 at 2100 Given 06/24/2025 10:46 PM EST 22.5 mg morphine injection 2 mg 2 mg, intravenous, Every 4 hours PRN, increased work of breathing, Starting on Mon06/25/25 at 0723 morphine injection 4 mg 4 mg, intravenous, Every 4 hours PRN, severe increased work of breathing, Starting on Mon06/25/25 at 0724 nicotine (NICODERM CQ) 21 mg/24 hr patch 1 patch 1 patch, transdermal, Administer over 24 Hours, Daily, First dose on Mon06/25/25 at 1030 Patch Applied 06/25/2025 10:36 AM EST 1 patch Right Arm ondansetron (PF) (ZOFRAN) injection 4 mg 4 mg, intravenous, Every 6 hours PRN, vomiting, nausea, Starting on Mon06/25/25 at 1049 pantoprazole (PROTONIX) EC tablet 40 mg 40 mg, oral, 2 times daily before meals, First dose on Mon06/25/25 at 0730, Do not crush, chew, or split. Given 06/25/2025 8:36 AM EST 40 mg pantoprazole (PROTONIX) injection 40 mg 40 mg, intravenous, Administer over 2 Minutes, Every 12 hours scheduled, First dose on Mon06/25/25 at 1015, Pantroprazole - IV push: Reconstitute powder for injection with 10 mL NS; final concentration: 4 mg/mL., Indication for IV Push Pantoprazole? Stress Ulcer Prophylaxis for patients with STRICT NPO status AND contraindication to H2RA Given 06/26/2025 8:38 AM EST 40 mg Given 06/25/2025 9:44 PM EST 40 mg phenytoin (DILANTIN) 25 mg/mL suspension 100 mg 100 mg, oral, 2 times daily, First dose on Mon06/25/25 at 1245, Hold enteral nutrition at least 1 hour before and 2 hours after dose. Monitor drug levels. Hazardous Medication Oral Solution: - Double pair of ASTM standard [id number] certified gloves - Eye/face protection if vomit or potential to spit up - Staff at reproductive risk must also wear a hazardous gown IF RECEIVING ENTERAL NUTRITION: Hold tube feeds at least 1 hour before and 2 hours after dose. Monitor drug levels. Given 06/26/2025 8:38 AM EST 100 mg Given 06/25/2025 9:44 PM EST 100 mg Given 06/25/2025 2:07 PM EST 100 mg phenytoin (DILANTIN) ER capsule 100 mg 100 mg, oral, 2 times daily, First dose on Mon06/24/25 at 2100, Hold enteral nutrition at least 1 hour before and 2 hours after dose. Monitor drug levels. Hazardous Medication Intact: - Single pair of ASTM standard [id number] certified gloves - Eye/face protection if vomit or potential to spit up - Do NOT split, crush, or open dosage units, On hold since Mon06/25/2025 at 1047 until manually unheld Given 06/24/2025 10:47 PM EST 100 mg revefenacin (YUPELRI) 175 mcg/3 mL nebulizer solution 175 mcg 175 mcg, nebulization, Daily, First dose on Mon06/24/25 at 2047 Given 06/24/2025 10:46 PM EST 175 mcg sodium chloride 0.9 % flush 10 mL 10 mL, intravenous, Once, On Mon06/24/25 at 1806, For 1 dose Given 06/24/2025 6:07 PM EST 10 mL documented in this encounter Discontinued Medications Medication Sig Discontinue Reason Start Date End Da te docusate sodium (COLACE) 100 mg capsule Take 1 Cap by mouth 2 times daily for 30 days. Therapy completed 04/09/2018 06/24/2025 traMADoL (ULTRAM) 50 mg tablet Take 1 tablet (50 mg total) by mouth at bedtime as needed for moderate pain. Max Daily Amount: 50 mg Therapy completed 02/11/2025 06/24/2025 fluticasone-salmeterol (ADVAIR DISKUS) 250-50 mcg/dose diskus inhalerIndications:Pul monary emphysema, unspecified emphysema type Inhale 1 puff by mouth 2 (two) times a day. Inhale 1 Puff into the lungs 2 times daily. Stop Taking at Discharge 09/24/2024 06/26/2025 tiotropium (Spiriva with HandiHaler) 18 mcg per inhalation capsuleIndications:Pul monary emphysema, unspecified emphysema type Place 1 capsule (18 mcg total) into inhaler and inhale 1 (one) time each day. Stop Taking at Discharge 09/24/2024 06/26/2025 albuterol HFA (PROAIR HFA ; PROVENTIL HFA ; VENTOLIN HFA) 90 mcg/actuation inhalerIndications:Chr onic obstructive pulmonary disease, unspecified COPD type (CMS/HCC V24, CMS/HCC V28) Inhale 2 puffs by mouth every 4 (four) hours if needed for wheezing or shortness of breath. Stop Taking at Discharge 12/14/2024 06/26/2025 documented as of this encounter Active and Recently Administered Medications Times are shown in EST. Scheduled Medication Order 06/24/2025 06/25/2025 06/26/2025 ARIPiprazole (ABILIFY) tablet 5 mg 5 mg, oral, Daily, First dose on Mon06/25/25 at 0900 0836 (Given - Provider: Nida Rojas RN - Comment: med pass now)1045 (Held by provider - Provider: Maria Fernanda Phillips NP - Reason: NPO)1313 (Unheld by provider - Provider: Maria Fernanda Phillips NP) 0838 (Given - Provider: Alba Box, RAYMOND) atorvastatin (LIPITOR) tablet 10 mg 10 mg, oral, Nightly, First dose on Mon06/24/25 at 2100 2247 (Given - Provider: Rahel Roberts RN) 1045 (Held by provider - Provider: Maria Fernanda Phillips NP - Reason: NPO)1313 (Unheld by provider - Provider: Maria Fernanda Phillips NP)2144 (Given - Provider: Sepideh Villalpando RN) budesonide (PULMICORT) 0.5 mg/2 mL nebulizer solution 0.5 mg 0.5 mg, nebulization, 2 times daily, First dose on Mon06/25/25 at 0800, Rinse mouth with water after use to reduce aftertaste and incidence of candidiasis. Do not swallow. 0850 (Given - Provider: Shara Eastman)2031 (Given - Provider: Brianne Hinojosa, TREY) 0757 (Given - Provider: Yolanda Ahmadi RRT) carvediloL (COREG) tablet 12.5 mg 12.5 mg, oral, 2 times daily, First dose on Mon06/24/25 at 2100, Hold If sbp < 100 or HR < 60 2246 (Given - Provider: Rahel Roberts RN) 0836 (Given - Provider: Nida Rojas RN - Comment: med pass now)1045 (Held by provider - Provider: Maria Fernanda Phillips NP - Reason: NPO)1313 (Unheld by provider - Provider: Maria Fernanda Phillips NP)2144 (Given - Provider: Sepideh Villalpando RN) 0839 (Given - Provider: Alba Box RN) cloNIDine (CATAPRES) tablet 0.1 mg 0.1 mg, oral, 2 times daily, First dose on Mon06/24/25 at 2100, Hold if sbp < 110 2247 (Given - Provider: Rahel Roberts RN) 0836 (Given - Provider: Nida Rojas RN - Comment: med pass now)1045 (Held by provider - Provider: Maria Fernanda Phillips NP - Reason: NPO)1313 (Unheld by provider - Provider: Maria Fernanda Phillips NP)2144 (Given - Provider: Sepideh Villalpando RN) 0839 (Given - Provider: Alba Box RN) clopidogreL (PLAVIX) tablet 75 mg 75 mg, oral, Daily, First dose on Mon06/25/25 at 0900 0835 (Given - Provider: Nida Rojas RN - Comment: med pass now)1045 (Held by provider - Provider: Maria Fernanda Phillips NP - Reason: NPO)1313 (Unheld by provider - Provider: Maria Fernanda Phillips NP) 0839 (Given - Provider: Alba Box RN) enoxaparin (LOVENOX) injection 40 mg 40 mg, subcutaneous, Daily, First dose on Mon06/25/25 at 1030, Indication: VTE/PE Prophylaxis 1032 (Given - Provider: Vianca Arzola RN) 0839 (Given - Provider: Alba Box RN) formoterol (PERFOROMIST) 20 mcg/2 mL nebulizer solution 20 mcg (CANCELED)(Linked Group 1) 20 mcg, nebulization, 2 times daily, First dose on Mon06/24/25 at 2100, Therapeutic substitution for ADVAIR DISKUS 250/50 is budesonide neb daily and formoterol neb twice daily. 2246 (Given - Provider: Rahel Roberts RN) guaiFENesin (MUCINEX) 12 hr tablet 600 mg 600 mg, oral, Every 12 hours scheduled, First dose on Mon06/25/25 at 0900, Do not crush, chew, or split. 0836 (Given - Provider: Nida Rojas RN - Comment: med pass now)1045 (Held by provider - Provider: Maria Fernanda Phillips NP - Reason: NPO)1313 (Unheld by provider - Provider: Maria Fernanda Phillips, MANAGED CARE LIAISON)2144 (Given - Provider: Sepideh Villalpando, RN) 0839 (Given - Provider: Alba Box, RAYMOND) iopamidoL (ISOVUE-370) 370 mg iodine /mL (76 %) injection 90 mL (COMPLETED) 90 mL, intravenous, Once in imaging, Starting on Mon06/24/25 at 1805, For 1 dose 1807 (Given - Provider: Padmini Morfin) ipratropium-albuteroL (DUONEB) 0.5-2.5 mg/3 mL nebulizer solution 3 mL 3 mL, nebulization, Every 6 hours, First dose on Mon06/25/25 at 0716 0845 (Given - Provider: Shara Eastman)1347 (Given - Provider: Deangelo Ling, TOWN ADMINISTRATOR)2032 (Given - Provider: Brianne Hinojosa, TOWN ADMINISTRATOR) 0132 (Given - Provider: Adriana Pedraza, TOWN ADMINISTRATOR)0757 (Given - Provider: Yolanda Ahmadi, TOWN ADMINISTRATOR)1400 (Canceled Entry - Provider: Automatic Discharge Provider - Comment: Automatically canceled at discontinue of medication order) levoFLOXacin (LEVAQUIN) IVPB 750 mg (COMPLETED) 750 mg, intravenous, at 100 mL/hr, Administer over 90 Minutes, Once, On Mon06/24/25 at 1905, For 1 dose, Indication: Pneumonia, Community Acquired 194 (New Bag - Provider: Rahel Roberts RN)2104 (Stopped - Provider: Rahel Roberts RN) levoFLOXacin (LEVAQUIN) IVPB 750 mg 750 mg, intravenous, at 100 mL/hr, Administer over 90 Minutes, Every 24 hours, First dose on Mon06/25/25 at 1900, For 7 days, Indication: Pneumonia, Community Acquired 1851 (New Bag - Provider: Nida Rojas, RAYMOND)2037 (Stopped - Provider: Sepideh Villalpando RN) methylPREDNISolone sodium succ (SOLU-Medrol) injection 60 mg 60 mg, intravenous, Every 6 hours scheduled, First dose on Mon06/25/25 at 0730, Reconstitute each 125 mg vial with 2 mL sterile water for injection to a concentration of 62.5 mg/mL. 0835 (Given - Provider: Nida Rojas RN - Comment: med pass now)1216 (Given - Provider: Nida Rojas RN)1852 (Given - Provider: Nida Rojas RN) 0049 (Given - Provider: Sepideh Villalpando, RN)0527 (Given - Provider: Sepideh Villalpando, RN)1316 (Not Given - Provider: Nida Rojas RN - Reason: Patient/Resident/Agent refused - education provided ) mirtazapine (REMERON) tablet 22.5 mg 22.5 mg, oral, Nightly, First dose on Mon06/24/25 at 2100 2246 (Given - Provider: Rahel Roberts RN) 1045 (Held by provider - Provider: Maria Fernanda Phillips NP - Reason: NPO)2100 (Dose Auto Held - Provider: Maria Fernanda Phillips NP) 1038 (Unheld by provider - Provider: Maria Fernanda Phillips NP) nicotine (NICODERM CQ) 21 mg/24 hr patch 1 patch 1 patch, transdermal, Administer over 24 Hours, Daily, First dose on Mon06/25/25 at 1030 1036 (Patch Applied - Provider: Vianca Arzola RN) 0837 (Patch Removed - Provider: Alba Box RN - Comment: patch never on body patient states.)0838 (Not Given - Provider: Alba Box RN - Reason: Patient/Resident/Agent refused - education provided ) pantoprazole (PROTONIX) EC tablet 40 mg (CANCELED) 40 mg, oral, 2 times daily before meals, First dose on Mon06/25/25 at 0730, Do not crush, chew, or split. 0836 (Given - Provider: Nida Rojas RN - Comment: med pass now) pantoprazole (PROTONIX) injection 40 mg 40 mg, intravenous, Administer over 2 Minutes, Every 12 hours scheduled, First dose on Mon06/25/25 at 1015, Pantroprazole - IV push: Reconstitute powder for injection with 10 mL NS; final concentration: 4 mg/mL., Indication for IV Push Pantoprazole? Stress Ulcer Prophylaxis for patients with STRICT NPO status AND contraindication to H2RA 1034 (Not Given - Provider: Vianca Arzola RN - Reason: Other - Comment: pt recieved PO protonix)2144 (Given - Provider: Sepideh Villalpando, RN) 0838 (Given - Provider: Alba Box, RN) phenytoin (DILANTIN) 25 mg/mL suspension 100 mg 100 mg, oral, 2 times daily, First dose on Mon06/25/25 at 1245, Hold enteral nutrition at least 1 hour before and 2 hours after dose. Monitor drug levels. Hazardous Medication Oral Solution: - Double pair of ASTM standard [id number] certified gloves - Eye/face protection if vomit or potential to spit up - Staff at reproductive risk must also wear a hazardous gown IF RECEIVING ENTERAL NUTRITION: Hold tube feeds at least 1 hour before and 2 hours after dose. Monitor drug levels. 1407 (Given - Provider: Nida Rojas RN)2143 (Given - Provider: Sepideh Villalpando RN) 0838 (Given - Provider: Alba Box, RN) phenytoin (DILANTIN) ER capsule 100 mg (CANCELED) 100 mg, oral, 2 times daily, First dose on Mon06/24/25 at 2100, Hold enteral nutrition at least 1 hour before and 2 hours after dose. Monitor drug levels. Hazardous Medication Intact: - Single pair of ASTM standard [id number] certified gloves - Eye/face protection if vomit or potential to spit up - Do NOT split, crush, or open dosage units, On hold since Mon06/25/2025 at 1047 until manually unheld 2246 (Given - Provider: Rahel Roberts RN) 1047 (Held by provider - Provider: Maria Fernanda Phillips NP - Reason: NPO)1052 (Hold - Provider: Nida Rojas RN - Reason: See Provider Order)1135 (Unheld by provider - Provider: Maria Fernanda Phillips NP) revefenacin (YUPELRI) 175 mcg/3 mL nebulizer solution 175 mcg (CANCELED) 175 mcg, nebulization, Daily, First dose on Mon06/24/25 at 2047 2246 (Given - Provider: Rahel Roberts RN) sodium chloride 0.9 % flush 10 mL (COMPLETED) 10 mL, intravenous, Once, On Mon06/24/25 at 1806, For 1 dose 1807 (Given - Provider: Padmini Morfin) PRN Medication Order 06/24/2025 06/25/2025 06/26/2025 albuterol 2.5 mg /3 mL (0.083 %) nebulizer solution 2.5 mg 2.5 mg, nebulization, Every 6 hours PRN, wheezing, Starting on Mon06/25/25 at 0716 diazePAM (VALIUM) tablet 10 mg (CANCELED) 10 mg, oral, Every 8 hours PRN, anxiety, Starting on Mon06/24/25 at 2046, for anxiety HOLD FOR SEDATION 0837 (Given - Provider: Nida Rojas, RAYMOND) hydrALAZINE (APRESOLINE) injection 10 mg 10 mg, intravenous, Every 4 hours PRN, systolic BP greater than:, Give for Systolic Blood pressure greater than 170, Starting on Mon06/25/25 at 1048 LORazepam (ATIVAN) injection 0.5 mg 0.5 mg, intravenous, Every 8 hours PRN, anxiety, Starting on Mon06/25/25 at 1049, Prior to IV use, lorazepam injection should be DILUTED with an equal volume of compatible solution; Rate of administration should NOT exceed 2 mg/min. 220 (Given - Provider: Sepideh Villalpando RN) morphine injection 2 mg 2 mg, intravenous, Every 4 hours PRN, increased work of breathing, Starting on Mon06/25/25 at 0723 morphine injection 4 mg 4 mg, intravenous, Every 4 hours PRN, severe increased work of breathing, Starting on Mon06/25/25 at 0724 ondansetron (PF) (ZOFRAN) injection 4 mg 4 mg, intravenous, Every 6 hours PRN, vomiting, nausea, Starting on Mon06/25/25 at 1049 Linked Groups Order Group 1: budesonide (PULMICORT) 1 mg/2 mL nebulizer solution 1 mg (CANCELED) 1 mg, nebulization, Daily, First dose on Mon06/25/25 at 0800, Rinse mouth with water after use to reduce aftertaste and incidence of candidiasis. Do not swallow. Therapeutic substitution for ADVAIR DISKUS 250/50 is budesonide neb daily and formoterol neb twice daily. And formoterol (PERFOROMIST) 20 mcg/2 mL nebulizer solution 20 mcg (CANCELED)Jump to med 20 mcg, nebulization, 2 times daily, First dose on Mon06/24/25 at 2100, Therapeutic substitution for ADVAIR DISKUS 250/50 is budesonide neb daily and formoterol neb twice daily. documented in this encounter Orders Medications Ordered That Mikel ht Not Have Been Administered Count Last Ordered Date First Ordered Date albuterol 2.5 mg /3 mL (0.08 3 %) nebulizer solution 2.5 mg 1 06/25/2025 hydrALAZINE (APRESOLINE) injection 10 mg 1 06/25/2025 morphine injection 2 mg 1 06/25/2025 morphine injection 4 mg 1 06/25/2025 ondansetron (PF) (ZOFRAN) injection 4 mg 1 06/25/2025 phenytoin (DILANTIN) 100 mg in sodium chloride 0.9 % 252 mL IVPB 1 06/25/2025 budesonide (PULMICORT) 1 mg/ 2 mL nebulizer solution 1 mg 1 06/24/2025 furosemide (LASIX) tablet 20 mg 1 ipratropium-albuteroL (DUONE B) 0.5-2.5 mg/3 mL nebulizer solution 3 mL 1 06/24/2025 Respiratory Care Count Last Ordered Date First Ordered Date PEP THERAPY 1 06/25/2025 Admission Count Last Ordered Date First Orde red Date ADMIT TO INPATIENT 1 06/24/2025 Discharge Count Last Ordered Date First Orde red Date DISCHARGE PATIENT 1 06/26/2025 documented in this encounter Additional Health Concerns Infection Onset Date Last Indicated Resolved Time Respiratory Rule-Out 06/24/2025 06/24/2025 025 3:01 PM EST COVID-19 Rule-Out 06/24/2025 06/24/2025 06/24/2025 3:01 PM EST documented as of this encounter Care Teams Street Railway Line Installer Relationship Specialty Start Date End Date Will Monroe MD [address] [place] [phone] PCP - General Internal Medicine 07/08/24 documented as of this encounter
--- NOTE | 2025-07-01 11:00 | MHC.OFFVISPS ---
Intake Intake Visit Reasons: depression Assistant Terminal Manager Required: No Allergies No Known Allergies Allergy (Verified 01/30/24 12:28) Medication List - Last Reconciled 07/01/25 by Angie Neely APRN aripiprazole (Abilify) 5 mg PO DAILY carvedilol 12.5 mg PO BID clonidine HCl 0.1 mg PO BID clopidogrel 75 mg PO DAILY diazepam 10 mg orally take 1 & 1/2 tab in morning and one tab at 3pm, and one at 10pm PRN; furosemide 20 mg PO DAILY levofloxacin mg PO mirtazapine (Remeron) 22.5 mg (1.5 x 15 mg) PO BEDTIME neomycin-polymyxin B-dexameth 3.5mg/mL-10,000 unit/mL-0.1 % drps ophthalmic (eye) ondansetron mg PO phenytoin sodium extended 100 mg PO TID simvastatin 20 mg PO BEDTIME tiotropium bromide (Spiriva with HandiHaler) 1 cap inhalation DAILY HPI- Psychiatric Chief Complaint: depression HPI Narrative: Pt follow up done via telehealth; pt reports she is not doing well; she was recently in hospital for pneumonia. she has been on antibiotics since. she is still very anxious and depressed; she is sleeping well with changes to remeron. She is getting immunotherapy once a week. She is taking a break from playing cards with her social group 3 days a week, while she is on antibiotics. She is getting good support from friends and family. Pt is adherent with meds. she denies SI or HI. Past Psychiatric History: No IPLOC. anxiety started at age 3, always scared, constant worried thoughts, depression and anxiety for many years; her mother when she was 2 yo and pt had a difficult life with father and step mother intermittently being available- she and sister were frequently in foster care; pt has been in and out of treatment for years -outpatietn tx only . Subjective Subjective Medication Compliance: Yes Side effects from medications: No Review of Systems Medical Review of Systems: unchanged Mental Status Exam Mental Status Exam Patient Orientation: Person, Place, Time and Situation Level of Consciousness: Awake Patient Behavior: Appropriate and Crying Mood Description: Anxious and Sad Patient Cognition Impaired: No Ability to Follow Directions: Good Speech Pattern: Clear, Appropriate and Coherent Memory Description: Intact Hallucinations: None Delusions: Not Present Thought Process: Intact and Goal Oriented Thought Content: positive for Intact and positive for Goal Oriented Judgement: Good Telehealth Telehealth Telehealth Platform: Telephone Location of provider rendering services: practice address Location of patient: address on file Patient Identification confirmed using: Name, : Yes Telehealth method: voice only Patient verbally consented to treatment: Yes Patient verbally consented to billing insurance company: Yes Patient informed of any privacy concerns related to visit: Yes Minutes spent on Phone/Video with Pt.: 15 Assessment and Plan Assessment & Plan (1) Anxiety about health: Status: Acute Code(s): R45.89 - Other symptoms and signs involving emotional state (2) Major depressive disorder, recurrent episode, moderate with anxious distress: Status: Acute Code(s): F33.1 - Major depressive disorder, recurrent, moderate (3) PTSD (post-traumatic stress disorder): Status: Acute Code(s): F43.10 - Post-traumatic stress disorder, unspecified Plan diazepam to 15mg in am and 10 mg at 3 pm and 10 pm. NOTE: dilantin makes valium less bio-available and pts need higher doses for efficacy abilify to 5 mg daily remeron to 22.5mg at bedtime advised increase fluids and hold valium if sedation, dizziness, trouble with balance. follow up in 4 weeks Counseling and coordination of Care Pt. Self Management counseling: Maintenance-social rhythm, Nutrition education and improvement, Sleep hygiene and General coping skills Medication management counseling: Effectiveness, Side effects and Adherence Diagnosis and Prognosis Counseling: Accuracy of diagnosis, Prognosis over time, Impact of diagnosis on life functions and Adequacy of current interventions Details: I spent 24 minutes reviewing the record, seeing the patient and documenting in the medical record. Counseling provided to the patient/caregiver as outlined below. Addressed patient/caregiver concerns regarding current medication regime including effective adherence. Addressed patient/caregiver concerns regarding diagnosis and prognosis including accuracy of diagnosis, prognosis over time, impact of diagnosis. Addressed patient/caregiver concerns regarding impact of recent stressors. PFSH Social History: lives with ; 2 adult daughters- estranged from one Substance History: none Trauma History: foster care as child- multiple homes Coding Level of Care Code Tele Est Pt Level 3 (32329) Diagnoses Anxiety about health R45.89 Major depressive disorder, recurrent episode, moderate with anxious distress F33.1 PTSD (post-traumatic stress disorder) F43.10
--- OUTSIDE RECORDS SUMMARY | 2025-07-01 13:55 | XMS_ITS | Clinical Summary ---
Author Organization [facility] Address [address] [place] [address] Care Team Providers Care Field Marketing Manager Name Role Phone Unknown Primary Care Provider [phone] Allergies Active Allergy Reactions Criticality Noted Date [...] es 65 and older) 2013 RSV Vaccine 50 years and old er and Patients (1 - 1-dose 75+ series) 2023 Influenza Vaccine 03/21/2025 COVID-19 Vaccine ( - 2023-2 5 season) 2025 Hepatitis B Vaccines Aged Out No long er eligible based on patient's age to complete this topic Insurance [facility]IC[facility] Care Teams Field Marketing Manager Relationship Specialty Start Date End Date Unknown Unknow Provider Address PCP - General 02/28/23
--- OUTSIDE RECORDS SUMMARY | 2025-07-01 13:56 | XMS_ITS | Encounter Summary ---
Author Organization [facility] Address [address] [place] [address] Care Team Providers Care Zoning Engineer Name Role Phone Will Monroe MD Primary Care Provider [phone] Reason for Visit * Reason Comments home health POC Encounter Details Date Type Department Care Team (Late Contact Info) Description 02/14/2025 Billing Patient Not Present Adult [address] [phone] Will Monroe MD [address] [place] [address] Social History Tobacco Use Types Packs/Day Years [...] Department Care Team (Late Contact Info) Description 07/03/2025 1:25 PM EST Office Visit Pulmonology - [facility] [address] [facility] [address] [place] [phone] Jelena Hoff, CARY [address] [place] [phone] 07/08/2025 11:15 AM EST Office Visit [facility] Hematology Oncology [address] [place] [phone] Mihaela Babrour MD [address] [place] [address] 07/08/2025 11:30 AM EST Appointment [facility] Infusion Center [address] [place] [address] 2[address] [place] [phone] 07/08/2025 2:30 PM EST Appointment [facility] Radiation Oncology [address] [place] [phone] Raymond Nash MD [address] [place] [phone] 07/16/2025 10:30 AM EST Office Visit Adult Medicine [facility] [address] [place], [place] [phone] Will Monroe MD [address] [place] [address] 08/20/2025 11:00 AM EST Office Visit Pulmonology - [facility] [address] [facility] [address] [place] [phone] Jelena Hoff, CARY [address] [place] [phone] 03/03/2026 11:00 AM EDT Appointment [facility] Ultrasound [address] [place] [phone] 04/01/2026 11:30 AM EDT Office Visit Vascular Surgery - [place] [address] [place] [phone] Krupa Garcia MD [address] [place] [phone] documented as of this encounter Visit Diagnoses Not on filedocumented in this encounter Additional Health Concerns Infection Onset Date Last Indicated Resolved Time Respiratory Rule-Out 06/24/2025 06/24/2025 025 3:01 PM EST COVID-19 Rule-Out 06/24/2025 06/24/2025 06/24/2025 3:01 PM EST documented as of this encounter Care Teams Zoning Engineer Relationship Specialty Start Date End Date Will Monroe MD [address] [place] [phone] PCP - General Internal Medicine 07/08/24 documented as of this encounter
--- OUTSIDE RECORDS SUMMARY | 2025-07-01 13:56 | XMS_ITS | Data Portability ---
Author Organization [place] [facility] Address [address] [place] [id number] Care Team Providers Care Air Brake Mechanic Name Role Phone ANIKET OGLESBY Primary Care Provider [phone] Assessment Encounter Date Assessment Date Assessment LastModified by Organization Details LastModified Time 10/13/2021 10/13/2021 Overview/History : 71 year old female patient is assisted living facility [facility] with PMH of htn, hypothyroidism, unspecified dementia, and depression. Report gathered from Sara rehabilitation program manager. Patient experienced diarrhea on 10/09 with some blood visualized in stool and on toilet paper. Stool appears to be lose with no abnormal color. Additional episodes of diarrhea on 10/10 and explosive diarrhea on 10/11 x 2 episodes at lunch and dinner. They have also noticed that for the last 2 weeks her behavior has changed. She is usually very nice and has been irritable and snappy at staff members/residents. She usually showers every single day and now has skipped days. Staff has noticed muscle weakness and almost passing out . She was assessed by Natalia DOWNING from 's office with hypotension and believes she may be dehydrated secondary to diarrhea. Covid test done this past weekend with negative finding. Testing is done weekly. Patient is independant with bathroom use, it is unknown if urine is dark in color, foul odor, and patient denies any dysuria or hematuria. However patient also denies diarrhea. Per patient she has not been experiencing any of the symptoms mentioned by staff. However there is documentation witnessing explosive diarrhea during lunch and dinner on 10/11. Per staff as of yesterday no diarrhea . Exam: Patient in euthymic mood, pleasant, able to follow commands and responds to question appropriately. VS stable.Poor skin turgor, oral mucosa moist, EOMI, lungs clear with auscultation, cardiac S1,S2, no murmurs, gallops, or rubs. Abdomen soft, non distended, non tender, hyperactive BS x 4 quads. DDx considered, but not limited to: malabsoprtion, IBS-D, travelers diarrhea. Work up/Results: IV fluid started at 11:12 am on left hand and stopped at 12:23 pm. Patient tolerated well. Patient unable to provide urine sample for collection. B/P reassessed after IV fluids with reading 126/68 mmHg from 92/56 mmHg. Hemaglobin low at 8.5. Remainder of labs within normal range. Plan/Discussion:Pl easant 71 year old patient with diarrhea, possible mild dehydration, and anemia. No labs available for comparison. ? Chronic anemia. Per staff negative for Covid 19. Possible cause of diarrhea gastroentiritis given the fact that it is resolving. Possible mild dehydration secondary to diarrhea. See assessment for detail. B/P increased with IV fluids. As far as her change in behavior we were unable to collect urine sample. Patient failed to urinate in hat.. Per staff this has been going on for 2 weeks. It may be progression of dementia, however UTI can not be ruled out. Will make follow up appointmet urine collection. Per staff blood was visualized with an episode of diarrhea on 10/09. ? Intenal hemmorhoids. Hemaglobin low at 8.5. Will repeat in 2 days. Staff made aware of finding. IBS-D unlikely diagnosis due to lack of pain with BM. Malabsorption unlikely diagnosis due to BM with no oily appearance. Travelers diarrhea unikely given the fact the patient has not traveled. Patient was left in eating diner section. [email or web address] Not available 10/13/2021 13:54:01 10/16/2021 10/16/2021 Overview/History :[age] yo female who is established with and is new to this provider with dementia, depression, HTN, and hypothyroidism being seen for follow up of hemoglobin level and behaviour change. Pt is feeling well at time of visit Exam: VSS, NAD, very pleasant and interactive, ambulating without difficulty, RRR, lungs CTA bilaterally, BS present, nontender with palp, no masses, no peritoneal signs, no CVA tenderness bilaterally DDx considered, but not limited to:anemia of chronic disease, GI bleed, malignancy, dementia, uti, electrolyte disturbance Work up/Results:hemoglo bin/hematocrit Plan/Discussion:Wi ll repeat hg/hct to establish trend/stability. Chem8 not available on scene at time of visit. Will send out to [facility]. No previous values are available for comparisson at time of visit. Pt does not have known history of anemia. No symptoms of GI bleed at time of visit. Could be chronic anemia. Low suspicion for electrolyte disturbance with normal values three days ago and no additional diarrhea or vomiting. Behaviour has also returned to baseline at time of visit. Low suspicion for UTI - no symptoms, VSS, normal exam- and testing is not indicated per clinical pathway. In addition pt has already had urine tested with another provider. Result was contaminated per staff. LVM for MPOA. Discussed plan with staff, left printout summary with signs and symptoms to watch for. PT has primary care and will continue to follow up with pcp as indicated by hg,hct result and symptoms Proper Personal Protective Equipment (PPE), was donned and doffed appropriately and all equipment cleaned using approved technique with germicidal disposable wipes prior to and after care of this patient according [facility]. In order to obtain further information and compare any laboratory results/values, I have accessed old patient records. This information was pertinent in my medical decision making today. Time On Scene with Patient: 00:37:49 [email or web address] Not available 10/16/2021 13:37:29 Plan of Treatment Reminders Order Date Submit Date Provider Last Modified By Organization Details Last Modified Time Details Appointments None recorded. Lab hemoglobin + hematocrit, blood 2021 022 [facility] (Centralized Electronic Ordering - All Locations), Patient Can Go To The Location Of Their Choice, [id number] 17:02:19 BMP + ionized calcium, serum or plasma [address] [facility] ([place], [place]), [address] [place] [address], [id number], 11:30:22 Referral None recorded. Procedures None recorded. Surgeries None recorded. Imaging None recorded. Medication Orders sodium chloride 0.9 % intravenous solution 2021 [email or web address] Not available 12:18:35 Patient TargetsNo targets recorded. Patient Instructions Encounter Date Encounter Id Patient Instructions Last Modified By Organization Details Last Modified Time 10/13/2021 [id number] weakness: care instructions [email or web address] [id number] Not available 10/13/2021 11:17:28 [facility] Acute/Diarrhea INSTRUCTIONS Medicines: 1) Anti-diarrheal medicines: These are available paul-qun-imfhzwz, but in some cases are not recommended and can even worsen some cases of intestinal problems. Ask your PROGRAM PROJECT MANAGER if you should use them. In children under 12, the only anti-diarrheal that should be considered is Kaopectate. Diet: 1) For the next 12-24 hours, take clear liquids only. No dairy and no caffeinated beverages. After you have not vomited for a complete hour (either with or without the help of the anti-nausea medicine), begin by taking one tablespoon of clear liquid every 15 minutes for one hour. If you are able to tolerate this, you may increase the amount to 2 tablespoons every hour for the next 2 hours. 2) Clear liquids such as gatorade, pedialyte or broth are recommended because of the electrolytes and sugars that will help replenish the losses from vomiting and diarrhea. 3) If you are able to tolerate clear liquids as instructed above, you may begin to take a bland diet. Plain pasta/noodles or toast are suggestions. If you have had diarrhea, bananas, rice and applesauce are suggested as these can help make the stools more solid. Avoid greasy, fatty or fried foods FOLLOW UP You should make an appointment to see your primary care provider within 24 hours or sooner for worsening condition as described below. If you do not have a primary care doctor, you should follow up with one of the [facility]CP [facility]. SEEK CARE IMMEDIATELY IF: 1) You are still unable to tolerate any oral intake after 24 hours 2) You have blood in your vomit or stool 3) You develop severe abdominal pain that does not go away after an episode of vomiting or diarrhea 4) You have severe dizziness, heart palpitations or are passing out 5) You develop severe muscle cramps or weakness 6) You have not made urine in over 24 hours If you develop any new or worsening symptoms and need after hours care, please go to nearest ER and/or call 911. If you have additional concerns or develop a change in your condition between 8am-10pm, please call [facility] at [phone] to help navigate your care. Thank you for your visit with [facility] today. You were seen today for abdominal pain, nausea, vomiting and/or diarrhea. Medications may have been administered and lab tests may have been performed. At this time, we do not see evidence of a serious surgical or infectious cause of your symptoms. However, lab tests and an evaluation cannot always exclude appendicitis or other serious causes of abdominal pain. Please see a medical professional in 12-24 hours to be re-examined. Seek immediate medical attention for increased pain, vomiting or fever. If you develop any new or worsening symptoms and need after hours care, please go to nearest ER and/or call 911. If you have additional concerns or develop a change in your condition between 8am-10pm, please [facility] at [phone] to help navigate your care. [email or web address] [id number] Not available 10/13/2021 13:08:49 10/16/2021 [id number] We have collecte d a blood sample to repeat Rabia's hemoglobin/hematoc rit. The sample has been taken to [facility]. Results should be available in 1-3 days. Rabia will need to follow up with her doctor if her hemoglobin level is lower In the meantime, please continue to encourage Rabia to drink fluids Continue to observe for change in behaviours and have Rabia follow up if she is not herself again. Rabia does not have signs or symptoms that would suggest urinary tract infection at the time of her visit today. Routine urine testing is not recommended in her age group. Please have her follow up if she has pain with urination, blood in her urine, back pain, fever, chills, abdominal pain, nausea, or vomiting. [email or web address] Not available 10/16/2021 13:02:07 Reason for Referral None Reported. Results Created Date Observation Date Name Description Value Unit Range Abnormal Flag Note LastModifiedBy Organization Detail LastModifiedTime 10/13/19 22 10/13/2021 BMP + IONIZ ED CALCI UM, SERUM OR PLASM A glu 105 mg/dL 70-105 Not Available Den [facility] [address] [place] [address], [address], 10/13/2021 11:30:22 10/13/19 22 10/13/2021 BMP + IONIZ ED CALCI UM, SERUM OR PLASM A BUN 25 mg/dL 8-26 Not Available [address], [address], 10/13/2021 11:30:22 10/13/19 22 10/13/2021 BMP + IONIZ ED CALCI UM, SERUM OR PLASM A crea 1.2 mg/dL 0.6-1. 3 Not Available [address], [address], 10/13/2021 11:30:22 10/13/19 22 10/13/2021 BMP + IONIZ ED CALCI UM, SERUM OR PLASM A Na 142 mmol/ L 138-14 6 Not Available [address], [address], 10/13/2021 11:30:22 10/13/19 22 10/13/2021 BMP + IONIZ ED CALCI UM, SERUM OR PLASM A K 3.4 mmol/ L 3.5-4. 9 Not Available [address], [address], 10/13/2021 11:30:22 10/13/19 22 10/13/2021 BMP + IONIZ ED CALCI UM, SERUM OR PLASM A cL 109 mmol/ L 98-109 Not Available [address], [address], 10/13/2021 11:30:22 10/13/19 22 10/13/2021 BMP + IONIZ ED CALCI UM, SERUM OR PLASM A TCO2 21 mmol/ L 24-29 Not Available [address], [address], 10/13/2021 11:30:22 10/13/19 22 10/13/2021 BMP + IONIZ ED CALCI UM, SERUM OR PLASM A angap 17 mmol/ L 10-20 Not Available [facility] [address] [place], [address], 10/13/2021 11:30:22 10/13/19 22 10/13/2021 BMP + IONIZ ED CALCI UM, SERUM OR PLASM A ica 1.19 mmol/ L 1.12-1 .32 Not Available [facility] [address] [place], [address], 10/13/2021 11:30:22 10/13/19 22 10/13/2021 BMP + IONIZ ED CALCI UM, SERUM OR PLASM A HCT 25 %pcv 38-51 Not Available [facility] [address] [place], [address], 10/13/2021 11:30:22 10/13/19 22 10/13/2021 BMP + IONIZ ED CALCI UM, SERUM OR PLASM A Hb 8.5 g/dL 12-17 Not Available [facility] [address] [place], [address], 10/13/2021 11:30:22 10/16/19 22 10/16/2021 HEMOG LOBIN AND HEMAT OCRIT HGB 11.6 gm/dL (11.7- 15.5) low Not Available [facility] (Centralized Electronic Ordering - All Locations) Patient Can Go To The Location Of Their Choice, 10/16/2021 14:23:31 10/16/19 22 10/16/2021 HEMOG LOBIN AND HEMAT OCRIT HCT 35.1 % (35.7- 45.8) low Not Available [facility] (Centralized Electronic Ordering - All Locations) Patient Can Go To The Location Of Their Choice, 10/16/2021 14:23:31 Result Notes None recorded. Procedures Surgical History Date Name Laterality Status Provider Name and Address Organization Details Recorded Time 10/16/19 22 Venipuncture - completed SALINA WHITNEY [address], [place], [address], [place] [facility] 10/16/2021 13:22:59 10/13/19 IV Start Procedure - completed Mary Ellen Pedraza NP [address], [place], [address], [place] [facility] 10/18/2021 11:05:09 Imaging Results None recorded. Procedure Notes None recorded. Medical Equipment None Reported. Allergies No known drug allergies Medications Name Sig Start Date Stop Date Status Note LastModified by Organization Details LastModified Time loperamide 2 mg capsule 10/13 completed Not Available Not Available Not Available donepezil 10 mg tablet active Not Available Not Available Not Available amlodipine 5 mg tablet 10/13 completed Not Available Not Available Not Available levothyroxi ne 25 mcg tablet active Not Available Not Available Not Available sertraline 25 mg tablet 10/13 completed Not Available Not Available Not Available sodium chloride 0.9 % intravenous solution Inject 1000 mL by intraveno us route as needed. 2021 active Not Available Not Available Not Avai lable sertraline 50 mg tablet active Not Available Not Available Not Available risperidone 0.5 mg tablet active Not Available Not Available Not Available amlodipine active 1.25 mg Not Available Not Available Not Available Vitals Date Recorded Heart rate Respiratory rate Body temperature Oxygen saturation Oxygen saturation in Arterial blood by Pulse oximetry Systolic And Diastolic Systolic And Diastolic Provider Name and Address Organization Details Last Updated DateTime 2 70 /min 16 /min 97.2 [degF] 95 % 95 % 92/56 mm[Hg] 126/68 mm[Hg] Not Available [facility] 13:23:25 Date Recorded Heart rate Body temperature Oxygen saturation Oxygen saturation in Arterial blood by Pulse oximetry Respiratory rate Systolic And Diastolic Provider Name and Address Organization Details Last Updated DateTime 2 60 /min 98.1 [degF] 97 % 97 % 18 /min 98/58 mm[Hg] Not Available [facility] 2 12:52:26 Social History Question Answer Notes LastModified by Organization D etails LastModified Time Excessive Alcohol Or Drug Use No [email or web address] Information not available 10/13/2021 Does This Patient Have A PCP? Yes [email or web address] Information not available 10/13/2021 Sex: Unknown Functional Status None recorded. Mental Status None recorded. Family History Nothing Reported. Medical History Condition Response Coronary Artery Disease N Depression Y COPD N Hypothyroidism Y A-fib N Cancer N Stroke N High Cholesterol N Rheumatoid Arthritis N Kidney Disease N Parkinson's Disease N Diabetes N CHF N Dementia Y Asthma N Pulmonary Embolism N Hypertension Y Osteoporosis N Gynecological HistoryNo gynecological history recorded. Obstetrics History GPAL:G 0 P 0 0 0 0 Past Encounters Encounter ID Performer Location Encounter Start Date Encounter Closed Date Diagnosis/Indication Diagnosis SNOMED-CT Code Diagnosis ICD10 Code Diagnosis IMO Codes Diagnosis Note [id number] February CARY Pedraza [facility] [address] [place] [address] 10/13/2021 11:05:04 10/14/2021 11:58:16 Weakness present 889044817 M62.81 Diarrhea 88803860 R19.7 [id number] SALINA WHITNEY [facility] [address] [place] [address] 10/16/2021 12:46:03 10/18/2021 15:55:17 Anemia 782275667 D64.9 Dementia [id number] F03.90 Health Concerns Section Related Observation LastModified by Organization Detai ls LastModified Time None Recorded Concern Status LastModified by Organization Details LastModified Time None Recorded Advance Directives Directive None Recorded Payers Insurance Date Sequence Insurance Name Policy Number Policy Rothman Covered Member ID Rothman Member ID Guarantor Name 10/12/2021 1 *SELF PAY* Rabia Monroe [id number] Dorcas Monroe 01/13/2022 2 [employer] (MEDICARE SUPPLEMENT) Rabia Monroe [id number] Dorcas Monroe 01/13/2022 1 [place] [employer] Rabia Monroe [id number] Dorcas Monroe Notes Date Note Type Note Provider Name and Address Organization Details Recorded Time 10/13/2021 text/html General HPI Template - DHReported by Staff71 year old female patient is assisted living facility [facility] with PMH of htn, hypothyroidism, unspecified dementia, and depression. Report gathered from Sara rehabilitation program manager. Patient experienced diarrhea on 10/09 with some blood visualized in stool and on toilet paper. Additional episodes of diarrhea on 10/10 and explosive diarrhea on 10/11 x 2 episodes at lunch and dinner. They have also noticed that for the last 2 weeks her behavior has changed. She is usually very nice and has been irritable and snappy at staff members/residents . She usually showers every single day and now has skipped days. Staff has noticed muscle weakness and almost passing out . She was assessed by Natalia DOWNING from 's office with hypotension and believes she may be dehydrated secondary to diarrhea. Covid test done this past weekend with negative finding. Testing is done weekly.Patient is independant with bathroom use, it is unknown if urine is dark in color, foul odor, and patient denies any dysuria or hematuria. However patient also denies diarrhea. Mary Ellen Pedraza NP [address], [place], [address], [place] [facility] 10/18/2021 11:06:22 10/16/2021 text/html 71 yo female being seen for follow up hemoglobin level. Hg was 8.5 at last visit without documented hisotry of anemia and no previous labs to compare. Pt was seen by on 10/13/2021 for change in behaviour, previous episodes of diarrhea, and fatigue. Since last visit pt's behaviour has returned to her baseline. Appetite has been normal. No urinary or bowel symptoms have been observed and pt denies any urinary or bowel symptoms. Pt states she feels well at time of today's visit. SALINA WHITNEY [address], [place], [address], [place] [facility] 10/16/2021 13:37:48 OBGyn Episode No OBEpisode recorded.
--- OUTSIDE RECORDS SUMMARY | 2025-07-01 13:56 | XMS_ITS | Clinical Summary ---
Author Organization [facility] Address [address] [place] [address] Phone Care Team Providers Care Shearer Operator Name Role Phone Will Monroe MD Primary Care Provider [phone] Allergies Active Allergy Reactions Criticality Noted Date [...] hours as needed for Anxiety. 023 Active mirtazapine (REMERON) 15 mg tablet Take 1.5 tablets (22.5 mg total) by mouth at bedtime. 024 Active albuterol 2.5 mg /3 mL (0.083 %) nebulizer solution Take 3 mL (2.5 mg total) by nebulization every 4 (four) hours if needed for wheezing. 75 mL 11 025 Active simvastatin (ZOCOR) 20 mg tablet Take 1 tablet (20 mg total) by mouth at bedtime. 90 tablet 1 025 Active clopidogreL (PLAVIX) 75 mg tablet Take 1 tablet (75 mg total) by mouth 1 (one) time each day. 90 tablet 1 025 Active furosemide (LASIX) 20 mg tablet Take 1 tablet (20 mg total) by mouth 1 (one) time each day. 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 60 tablet 2 025 Active phenytoin (DILANTIN) 100 mg ER capsuleIndication s:Seizure disorder (CMS/HCC V24, CMS/HCC V28) TAKE ONE CAPSULE TWICE DAILY 270 capsule 025 Active ondansetron ODT (ZOFRAN-ODT) 4 mg disintegrating tablet DISSOLVE ONE TABLET IN MOUTH EVERY EIGHT HOURS NEEDED FOR NAUSEA 30 each 025 Active carvediloL (COREG) 12.5 mg tablet TAKE ONE TABLET TWICE DAILY 180 tablet 025 Active cloNIDine (CATAPRES) 0.1 mg tablet TAKE ONE TABLET TWICE DAILY 180 tablet Active budesonide (PULMICORT) 0.5 mg/2 mL nebulizer solutionIndicatio ns:COPD with acute exacerbation ([facility] V24, [facility] V28) Take 2 mL (0.5 mg total) by nebulization 2 (two) times a day for 10 days. Rinse mouth with water after use to reduce aftertaste and incidence of candidiasis. Do not swallow. 40 mL 025 2024 Active guaiFENesin (MUCINEX) 600 mg 12 hr tablet Take 1 tablet (600 mg total) by mouth every 12 (twelve) hours for 10 days. Do not crush, chew, or split. 20 each 2024 Active ipratropium-albut Andreina (DUONEB) 0.5-2.5 mg/3 mL nebulizer solutionIndicatio ns:COPD with acute exacerbation ([facility] V24, [facility] V28) Take 3 mL by nebulization every 6 (six) hours for 10 days. 120 mL 2024 Active nicotine (NICODERM CQ) 21 mg/[address] 1 patch on the skin 1 (one) time each day. 30 each 025 2024 Active predniSONE (DELTASONE) 10 mg tablet Take 3 tablets (30 mg total) by mouth 1 (one) time each day for 3 days, THEN 2 tablets (20 mg total) 1 (one) time each day for 3 days, THEN 1 tablet (10 mg total) 1 (one) time each day for 3 days. 18 each 025 2024 Active levoFLOXacin (LEVAQUIN) 750 mg tablet Take 1 tablet (750 mg total) by mouth 1 (one) time each day for 7 days. 7 each 025 2024 Active docusate sodium (COLACE) 100 mg capsule Take 1 Cap by mouth 2 times daily for 30 days. 018 2024 Discontinued(T herapy completed) fluticasone-salme terol (ADVAIR DISKUS) 250-50 mcg/dose diskus inhalerIndication s:Pulmonary emphysema, unspecified emphysema type Inhale 1 puff by mouth 2 (two) times a day. Inhale 1 Puff into the lungs 2 times daily. 3 each 3 025 2024 Discontinued(S top Taking at Discharge) tiotropium (Spiriva with HandiHaler) 18 mcg per inhalation capsuleIndication s:Pulmonary emphysema, unspecified emphysema type Place 1 capsule (18 mcg total) into inhaler and inhale 1 (one) time each day. 3 each 3 025 2024 Discontinued(S top Taking at Discharge) phenytoin (DILANTIN) 100 mg ER capsuleIndication s:Seizure disorder ([facility] V24, [facility] V28) Take 1 capsule (100 mg total) by mouth 2 (two) times a day. 270 capsule 025 2024 Discontinued cloNIDine (CATAPRES) 0.1 mg tablet TAKE ONE TABLET TWICE DAILY 180 tablet 1 2024 Discontinued carvediloL (COREG) 12.5 mg tablet TAKE ONE TABLET TWICE DAILY 180 tablet 1 025 2024 Discontinued ondansetron ODT (ZOFRAN-ODT) 4 mg disintegrating tablet DISSOLVE ONE TABLET IN MOUTH EVERY EIGHT HOURS NEEDED FOR NAUSEA 40 each 1 025 2024 Discontinued albuterol HFA (PROAIR HFA ; PROVENTIL HFA ; VENTOLIN HFA) 90 mcg/actuation inhalerIndication s:Chronic obstructive pulmonary disease, unspecified COPD type ([facility] V24, [facility] V28) Inhale 2 puffs by mouth every 4 (four) hours if needed for wheezing or shortness of breath. 36 g 5 025 2024 Discontinued(S top Taking at Discharge) traMADoL (ULTRAM) 50 mg tablet Take 1 tablet (50 mg total) by mouth at bedtime as needed for moderate pain. Max Daily Amount: 50 mg 7 tablet 025 2024 Discontinued(T herapy completed) Active Problems Problem Noted Date Diagnosed Date Acute hypoxic respiratory fa ilure ([facility] V24, [facility] V28) 06/24/2025 Metastasis from malignant ne oplasm of left lung (CMS/HCC V24, CMS/HCC V28) 05/13/2025 Pulmonary emphysema (CMS/HCC V24, CMS/HCC V28) 0 02/19/2025 Former heavy cigarette smoker (20-39 per day) 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 (CMS/HCC V24, CMS/HCC V28) 02/19/2025 Fall 02/06/2025 Small cell lung cancer, left lower lobe (CMS/HCC V24, CMS/HCC V28) 12/26/2024 Cancer Staging:Clinical stage from 01/16/2025:Stage IA2(cT1b, cN0, cM0) - Signed by Alba Zapien MD on 01/16/2025 Rib pain on right side 12/25/2024 Exercise hypoxemia 12/25/2024 Cognitive impairment 12/25/2024 CAD in [place] artery 12/25/2024 Lung nodule 12/03/2024 Acute respiratory failure wi th hypoxia and hypercapnia (CMS/HCC V24, [facility]/HCC V28) 11/25/2024 Pulmonary nodule 10/07/2024 Assessment & [...] 10/07/2024 Osteopenia 09/16/2021 Psoriatic arthritis (CMS/HCC V24, [facility]/HCC V28) 1 10/12/2020 Overview (06/12/2024): Debbyira started 03/2021 History of COVID-19 08/11/2021 Overview [...] (06/12/2024): Followed by ADELA Rose, Amari. 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 On Dilantin Thrombocytopenia ([facility] V24) 07/24/2017 Vitamin D deficiency 07/24/2017 Encounters Date Type Department Care Team Description 07/01/2025 Telephone [facility] Infusion Center [address] [phone] Erika Turpin RN 06/30/2025 Telephone Adult Medicine [address] [phone] Will Monroe MD 06/24/2025 1:12 PM EST - 06/26/2025 1:58 PM EST Hospital Encounter [facility] Intermediate Care Unit [address] [place] [phone] Fer Nguyen MD Mogul, Ashley, MD Seralathan, Manikandan, MD Nasser, Nada S, MD Hypoxia (Primary Dx); Small cell lung cancer, left lower lobe ([facility] V24, [facility] V28); 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 ([facility] V24, [facility] V28); COPD with acute exacerbation ([facility] V24, [facility] V28) Discharge Disposition: Home-Health Care Svc 06/24/2025 10:59 AM EST - 06/24/2025 11:59 PM EST Hospital Encounter [facility] [address] [place] [phone] 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 (CMS/HCC V24, CMS/HCC V28) (Primary Dx); Small cell lung cancer, left lower lobe (CMS/HCC V24, CMS/HCC V28); 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 (CMS/HCC V24, CMS/HCC V28) Discharge Disposition: Home or Self Care 05/20/2025 12:29 PM EDT - 05/20/2025 11:59 PM EDT Hospital Encounter [facility] PET Scan [address] [place] [phone] Small cell lung cancer, left lower lobe (CMS/HCC V24, CMS/HCC V28) Discharge Disposition: Home or Self Care 05/13/2025 10:45 AM EDT Office Visit [facility] Hematology Oncology [address] [place] [phone] Mihaela Barbour MD Small cell lung cancer, left lower lobe (CMS/HCC V24, CMS/HCC V28) (Primary Dx); 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 (CMS/HCC V24, CMS/HCC V28) 05/08/2025 Telephone Adult Medicine [address] [phone] Will Monroe MD 04/29/2025 2:53 PM EDT - 04/29/2025 11:59 PM EDT Hospital Encounter [facility] Radiation Oncology [address] [place] [phone] Alba Zapien MD Small cell lung cancer, left lower lobe (CMS/HCC V24, CMS/HCC V28) (Primary Dx) Discharge Disposition: Home or Self Care 04/25/2025 Telephone Adult Medicine [address] [phone] Will Monroe MD 04/15/2025 12:42 PM EDT - 04/15/2025 11:59 PM EDT Hospital Encounter [facility] CT Scan [address] [place] [phone] Small cell lung cancer, left lower lobe (CMS/HCC V24, CMS/HCC V28) Discharge Disposition: Home or Self Care 04/15/2025 11:00 AM EDT Office Visit [facility] Hematology Oncology [address] [place] [phone] Mihaela Barbour MD Small cell carcinoma of left lung, unspecified part of lung ([facility] V24, [facility] V28) (Primary Dx); 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 ([facility] V24, [facility] V28) 04/15/2025 Telephone [facility] Hematology Oncology [address] [place] [phone] Catalina Mcguire RN from Last 3 Months Immunizations Immunization Administration Dates Next Due Influenza Quadravalent, MDCK , 0.5ml, preservative free (Flucelvax) 6mo and older 07/24/2018 Influenza trivalent, 0.5mL ( Fluad) 65yo and older 06/08/2023,05/17/2022,06/15/2021,05/23,07/23/2019 Influenza trivalent, with pr eservative (Fluzone; Afluria) 6mo and older 05/23/2020 Influenza, Unspecified 06/04/2021 [place] SARS-CoV-2 COVID-19, mRNA, LNP-S, preservative free 12/25/2020 [...] TONSILLECTOMY OTHER SURGICAL HISTORY 09/2016 Left PROCEDURE: [place] OPTX ILIAC TUBRST AVLS/WING FX FIXJ IF PRFRMD; COMMENT: s/p pelvic repair, [place]'s UPPER GASTROINTESTINAL ENDOSCOPY 10/03/2018 PROCEDURE: UPPER GI [...] GFR 30-59 ml/min ([facility] V24, [facility] V28) 03/13/2018 DX:CKD (chronic kidney disea se) stage 3, GFR 30-59 ml/min ([facility]) COPD (chronic obstructive pu lmonary disease) ([facility] V24, [facility] V28) 07/24/2017 DX:COPD (chronic o bstructive pulmonary disease) ([facility]); COMMENT: Chronic bronchitis Depression 07/24/2017 DX:Depression Dermatochalasis [...] nonobstructing Seizure disorder ([facility] V2 4, [facility] V28) 07/24/2017 DX:Seizure disorder ([facility]); C OMMENT: 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 On Dilantin Thrombocytopenia ([facility] V24) 07/24/2017 D X:Thrombocytopenia (HCC) Vitamin D [...] for your loved ones. For example, child support investigator or elderly care for an older adult? [...] Mass Index 27.54 06/24/2025 1:18 PM EST Plan of Treatment Upcoming Encounters Date Type Department Care Team (Late st Contact Info) Description 07/03/2025 1:25 PM EST Office Visit Pulmonology [facility] [address] [phone] Jelena Hoff, CARY [address] [place] [phone] 07/08/2025 11:15 AM EST Office Visit [facility] Hematology Oncology [address] [place] [phone] Mihaela Barbour MD [address] [place] [phone] 07/08/2025 11:30 AM EST Appointment [facility] Infusion Center [address] [place] [address] [address] [place] [phone] 07/08/2025 2:30 PM EST Appointment [facility] Radiation Oncology [address] [place] [phone] Raymond Nash MD [address] [place] [phone] 07/16/2025 10:30 AM EST Office Visit Adult Medicine [address] [phone] Will Monroe MD [address] [place] [address] 08/20/2025 11:00 AM EST Office Visit Pulmonology [address] [phone] Jelean Hoff, CARY [address] [place] [phone] 03/03/2026 11:00 AM EDT Appointment [facility] Ultrasound [address] [place] [phone] 04/01/2026 11:30 AM EDT Office Visit Vascular Surgery - [place] [address] [place] [address] Krupa Garcia MD [address] [place] [phone] Health Maintenance Due Date Last Done Comments Zoster Vaccines (1 of 2) 1969 Colorectal Cancer Screening: Stool Based Tests (FOBT/FIT) 07/30/2022 Medicare Annual Wellness Visit 07/30/2022 RSV Immunization Adult Patients (1 - 1-dose 75+ series) 2023 Depression Screening 08/21/2024 COVID-19 Vaccine ( season) 2025 09/08/2021, 12/25/2020, 12/04/2020 Influenza Vaccine (#1) 2025 , 06/08/2023, 05/17/2022, Additional history exists DTaP,Tdap,and Td Vaccines (2 - Td or Tdap) 01/02/2026 01/03/2016 Falls Risk Assessment 06/25/2026 06/25/2025 Social Influencers of Health Screening 06/25/2026 06/25/2025 Hypertension/CHF/CAD Annual BMP Blood Test 06/26/2026 06/26/2025, 06/25/2025, 06/24/2025, Additional history exists Cholesterol Screening (Lipid Panel) 06/08/2028 06/08/2023 Osteoporosis [...] this topic Medical Devices Implanted Type Area Tobacco Grader Device Identifier Shelf Expiration Date Model / Serial / Lot Marker Cobra Superlock - Sn/A - [id number] Implanted:Qt y: 1 on 11/20/2024 by Laura Avalos MD at [facility] Imaging Implants Right: Lung [employer] SU[employer]ENS[employer] [id number] 06/26/2028 [id number] / N/A / [id number] Description:RIGHT UPPER LOBE Marker Cobra Superlock - Sn/A - [id number] Implanted:Qt y: 1 on 11/20/2024 by Laura Avalos MD at [facility] Imaging Implants Left: Lung [employer] 08/07/2028 [id number] / N/A / [id number] Description:LEFT LOWER LOBE Procedures Procedure Name Priority Date/Time Associated Diagnosis Comments CBC WITH AUTO DIFFERENTIAL Routine 06/26/2025 5:35 AM EST PHOSPHORUS Routine 06/26/2025 5:35 AM EST MAGNESIUM Routine 06/26/2025 5:35 AM EST BASIC METABOLIC PANEL Routine 06/26/2025 5:35 AM EST CBC AND DIFFERENTIAL Routine 06/26/2025 5:35 AM EST PEP THERAPY Routine 06/25/2025 7:16 AM EST BASIC METABOLIC PANEL Routine 06/25/2025 4:13 AM EST VITAMIN B12 AND FOLATE Routine 06/25/2025 4:13 AM EST MANUAL DIFFERENTIAL [...] REFLEX MICROSCOPIC STAT 06/24/2025 2:25 PM EST B-TYPE NATRIURETIC PEPTIDE STAT 06/24/2025 1:52 PM EST TROPONIN I HIGH SENSITIVITY STAT 06/24/2025 1:52 PM EST RESPIRATORY VIRUS PANEL MOLECULAR STUDY STAT 06/24/2025 1:52 PM EST CBC WITH AUTO DIFFERENTIAL STAT 06/24/2025 1:43 PM EST CBC AND DIFFERENTIAL STAT 06/24/2025 1:43 PM EST BASIC METABOLIC PANEL STAT 06/24/2025 1:43 PM EST LACTATE, WITH REFLEX STAT 06/24/2025 1:43 PM EST CULTURE BLOOD STAT 06/24/2025 1:43 PM EST CULTURE BLOOD STAT 06/24/2025 1:43 PM EST CBC WITH AUTO DIFFERENTIAL Routine 06/23/2025 1:10 PM EST Lung cancer (CMS/HCC V24, CMS/HCC V28) COMPREHENSIVE METABOLIC PANEL Routine 06/23/2025 1:10 PM EST Lung cancer (CMS/HCC V24, CMS/HCC V28) CBC AND DIFFERENTIAL Routine 06/23/2025 1:10 PM EST Lung cancer (CMS/HCC V24, CMS/HCC V28) CBC WITH AUTO DIFFERENTIAL Routine 05/27/2025 1:11 [...] left lower lobe (CMS/HCC V24, CMS/HCC V28) LIPID PANEL Routine 06/08/2023 DXA BONE DENSITY STUDY 1+ SITS AXIAL SKEL Routine 09/16/2021 11:06 AM EST Encounter for screening for osteoporosis HEPATITIS C SCREENING Routine 05/13/2020 from Last 3 Months or Most Recently Relevant to Health Maintenance Results * (ABNORMAL) CBC auto differential (06/26/2025 5:35 AM EST) Only the most recent of5 resultswithin the time period is included. WBC 4.3(L) 4.8 - 10.8 K/mcL LAB HEMETOLOGY METHOD 06/26/2025 7:10 AM [facility] RBC 3.90 3.80 - 4.80 M/mcL LAB HEMETOLOGY METHOD 06/26/2025 7:10 AM [facility] Hemoglobin 12.7 11.5 - 16.0 g/dL LAB HEMETOLOGY METHOD 06/26/2025 7:10 AM [facility] Hematocrit 39.4 35.0 - 47.0 % LAB HEMETOLOGY METHOD 06/26/2025 7:10 AM [facility] MCV 101.3(H) 79.0 - 98.0 FL LAB HEMETOLOGY METHOD 06/26/2025 7:10 AM [facility] MCH 32.6(H) 27.0 - 32.0 pcg LAB HEMETOLOGY METHOD 06/26/2025 7:10 AM [facility] MCHC 32.2 32.0 - 37.0 g/dL LAB HEMETOLOGY METHOD 06/26/2025 7:10 AM [facility] RDW 11.5 11.0 - 15.0 % LAB HEMETOLOGY METHOD 06/26/2025 7:10 AM [facility] Platelets 109(L) 130 - 400 K/mcL LAB HEMETOLOGY METHOD 06/26/2025 7:10 AM [facility] MPV 10.6 7.0 - 11.0 FL LAB HEMETOLOGY METHOD 06/26/2025 7:10 AM [facility] NRBC 0.0 <1.0 % LAB HEMETOLOGY METHOD 06/26/2025 7:10 AM [facility] NRBC Absolute 0.00 <0.10 K/mcL LAB HEMETOLOGY METHOD 06/26/2025 7:10 AM [facility] Neutrophils Relative 88.0 % LAB HEMETOLOGY METHOD 06/26/2025 7:10 AM [facility] Lymphocytes Relative 7.6 % LAB HEMETOLOGY METHOD 06/26/2025 7:10 AM [facility] Monocytes Relative 3.9 % LAB HEMETOLOGY METHOD 06/26/2025 7:10 AM [facility] Eosinophils Relative 0.0 % LAB HEMETOLOGY METHOD 06/26/2025 7:10 AM [facility] Basophils Relative 0.0 % LAB HEMETOLOGY METHOD 06/26/2025 7:10 AM [facility] Immature Granulocytes Relative 0.5 % LAB HEMETOLOGY METHOD 06/26/2025 7:10 AM [facility] Neutrophils Absolute 3.82 1.50 - 7.00 K/mcL LAB HEMETOLOGY METHOD 06/26/2025 7:10 AM [facility] Lymphocytes Absolute 0.33(L) 1.00 - 5.00 K/mcL LAB HEMETOLOGY METHOD 06/26/2025 7:10 AM [facility] Monocytes Absolute 0.17(L) 0.20 - 1.00 K/mcL LAB HEMETOLOGY METHOD 06/26/2025 7:10 AM EST [facility] Eosinophils Absolute 0.00 0.00 - 0.50 K/[facility] LAB HEMETOLOGY METHOD 06/26/2025 7:10 AM EST [facility] Basophils Absolute 0.00 0.00 - 0.20 K/[facility] LAB HEMETOLOGY METHOD 06/26/2025 7:10 AM EST [facility] Immature Granulocytes Absolute 0.02 0.00 - 0.03 K/[facility] LAB HEMETOLOGY METHOD 06/26/2025 7:10 AM EST [facility] Blood Venous blood specimen / Unknown Venipuncture / Unknown 06/26/2025 5:35 AM EST 06/26/2025 6:42 AM EST Maria Fernanda Phillips DIAGNOSTIC ASSISTANT LAB BLOOD ORDERABLES Final Resul t Performing Organization Address City/[facility]/ZIP Co de Phone Number [facility] [address] [place] [address], [place] [phone] * Phosphorus (06/26/2025 5:35 AM EST) Phosphorus 2.5 2.5 - 4.5 mg/dL LAB CHEMISTRY METHOD 06/26/2025 7:39 AM EST [facility] Blood Venous blood specimen / Unknown Venipuncture / Unknown 06/26/2025 5:35 AM EST 06/26/2025 6:42 AM EST Maria Fernanda Phillips DIAGNOSTIC ASSISTANT LAB BLOOD ORDERABLES Final Resul t [facility] [address] [place] [address], [place] [phone] * Magnesium (06/26/2025 5:35 AM EST) Magnesium 2.2 1.9 - 2.6 mg/dL LAB CHEMISTRY METHOD 06/26/2025 7:39 AM [facility] Blood Venous blood specimen / Unknown Venipuncture / Unknown 06/26/2025 5:35 AM EST 06/26/2025 6:42 AM EST us Maria Fernanda Phillips NP LAB BLOOD ORDERABLES Final Resul t [facility] [address] [place] [address], [place] [phone] * (ABNORMAL) Basic metabolic panel (06/26/2025 5:35 AM EST) Only the most recent of3 resultswithin the time period is included. Sodium 137 133 - 145 mmol/L LAB CHEMISTRY METHOD 06/26/2025 7:39 AM [facility] Potassium 4.5 3.5 - 5.5 mmol/L LAB CHEMISTRY METHOD 06/26/2025 7:39 AM [facility] Chloride 99 96 - 110 mmol/L LAB CHEMISTRY METHOD 06/26/2025 7:39 AM [facility] CO2 33(H) 21 - 32 mmol/L LAB CHEMISTRY METHOD 06/26/2025 7:39 AM [facility] Anion Gap 5 3 - 11 LAB CHEMISTRY METHOD 06/26/2025 7:39 AM [facility] Glucose 162(H) 70 - 100 mg/dL LAB CHEMISTRY METHOD 06/26/2025 7:39 AM [facility] BUN 17 5 - 25 mg/dL LAB CHEMISTRY METHOD 06/26/2025 7:39 AM [facility] Creatinine 0.79 0.50 - 1.10 mg/dL LAB CHEMISTRY METHOD 06/26/2025 7:39 AM [facility] eGFR 78 >=60 mL/min/1. 73m2 LAB CHEMISTRY METHOD 06/26/2025 7:39 AM [facility] Comment:Calculation based on the Chronic Kidney Disease Epidemiology Collaboration (CKD-EPI) equation refit without adjustment for race. BUN/Creatinine Ratio 21.5 LAB CHEMISTRY METHOD 06/26/2025 7:39 AM EST [facility] Calcium 9.2 8.5 - 10.5 mg/dL LAB CHEMISTRY METHOD 06/26/2025 7:39 AM EST [facility] Blood Venous blood specimen / Unknown Venipuncture / Unknown 06/26/2025 5:35 AM EST 06/26/2025 6:42 AM EST Maria Fernanda Phillips DIAGNOSTIC ASSISTANT LAB BLOOD ORDERABLES Final Resul t Performing Organization Address [facility]/ZIP Co de Phone Number [facility] [address] [place] [address], [place] [phone] * (ABNORMAL) Vitamin B12 and folate (06/25/2025 4:13 AM EST) [facility] Vitamin B-12 210(L) 250 - 900 pcg/mL LAB CHEMISTRY METHOD 06/25/2025 5:10 AM EST [facility] Folate 9.2 2.8 - 17.0 ng/ml LAB CHEMISTRY METHOD 06/25/2025 5:10 AM EST [facility] Blood Venous blood specimen / Unknown Venipuncture / Unknown 06/25/2025 4:13 AM EST 06/25/2025 4:17 AM EST Sydnee Lara PA LAB BLOOD ORDERABLES Final Resu lt Performing Organization Address City/[facility]/ZIP Co de Phone Number [facility] [address] [place] [address], [place] [phone] * (ABNORMAL) Manual differential (06/25/2025 3:13 AM EST) Pathologist [facility] Neutrophils % 76.0 % LAB HEMETOLOGY METHOD 06/25/2025 4:54 AM EST [facility] Lymphocytes % 12.0 % LAB HEMETOLOGY METHOD 06/25/2025 4:54 AM [facility] Monocytes % 3.0 % LAB HEMETOLOGY METHOD 06/25/2025 4:54 AM [facility] Eosinophils % 8.0 % LAB HEMETOLOGY METHOD 06/25/2025 4:54 AM [facility] Basophils % 1.0 % LAB HEMETOLOGY METHOD 06/25/2025 4:54 AM [facility] Neutrophils Absolute Manual 3.80 1.50 - 7.00 K/mcL LAB HEMETOLOGY METHOD 06/25/2025 4:54 AM [facility] Lymphocytes Absolute 0.60(L) 1.00 - 5.00 K/mcL LAB HEMETOLOGY METHOD 06/25/2025 4:54 AM [facility] Monocytes Absolute Manual 0.15(L) 0.20 - 1.00 K/mcL LAB HEMETOLOGY METHOD 06/25/2025 4:54 AM [facility] Eosinophils Absolute Manual 0.40 0.00 - 0.50 K/mcL LAB HEMETOLOGY METHOD 06/25/2025 4:54 AM [facility] Basophils Absolute Manual 0.05 0.00 - 0.20 K/mcL LAB HEMETOLOGY METHOD 06/25/2025 4:54 AM [facility] Rbc Morphology Consistent with indices Consistent with indices, Normal for [place] LAB HEMETOLOGY METHOD 06/25/2025 4:54 AM [facility] Platelet Morphology - WAM Normal Normal LAB HEMETOLOGY METHOD 06/25/2025 4:54 AM [facility] Blood Venous blood specimen / Unknown Venipuncture / Unknown 06/25/2025 3:13 AM EST 06/25/2025 4:17 AM EST Sydnee DOWNING LAB BLOOD ORDERABLES Final Resu lt [facility] [address] [place] [address], * ECG-Annotated (06/25/2025) Provider Onirma LARSON ECG ORDERABLES Final Result * ECG 12 lead (06/24/2025 6:51 PM EST) Ventricular Rate ECG 88 BPM GEMUSE Atrial Rate 88 BPM GEMUSE P-R Interval 170 ms GEMUSE QRS Duration 70 ms GEMUSE Q-T Interval 344 ms GEMUSE QTc 416 ms GEMUSE P Wave [place] 69 degrees GEMUSE R [place] 53 degrees GEMUSE T [place] 66 degrees GEMUSE ECG Interpretation Normal sinus [...] Yimi Martin MD on 06/24/2025 18:44:48 Fer Ngueyn MD IM CT PROCEDURES Final Result * (ABNORMAL) Urinalysis with reflex microscopic (06/24/2025 2:25 PM EST) Specific [place] Urine 1.010 1.003 - 1.030 LAB URINALYSIS - AUTOMATED METHOD 06/24/2025 3:10 PM [facility] pH, Urine 7.5 5.0 - 8.0 pH LAB URINALYSIS - AUTOMATED METHOD 06/24/2025 3:10 PM [facility] Leukocytes, Urine Trace(A) Negative LAB URINALYSIS - AUTOMATED METHOD 06/24/2025 3:10 PM [facility] Nitrite, Urine Negative Negative LAB URINALYSIS - AUTOMATED METHOD 06/24/2025 3:10 PM [facility] Protein, Urine Trace <=Trace mg/dL LAB URINALYSIS - AUTOMATED METHOD 06/24/2025 3:10 PM [facility] Glucose, Urine Negative Negative mg/dL LAB URINALYSIS - AUTOMATED METHOD 06/24/2025 3:10 PM [facility] Ketones, Urine Negative Negative mg/dL LAB URINALYSIS - AUTOMATED METHOD 06/24/2025 3:10 PM [facility] Urobilinogen, Urine 0.2 0.2 - 1.0 mg/dL LAB URINALYSIS - AUTOMATED METHOD 06/24/2025 3:10 PM [facility] Bilirubin, Urine Negative Negative LAB URINALYSIS - AUTOMATED METHOD 06/24/2025 3:10 PM [facility] Blood, Urine Negative Negative LAB URINALYSIS - AUTOMATED METHOD 06/24/2025 3:10 PM [facility] RBC, Urine 2.3 0 - 4 /HPF LAB URINALYSIS - AUTOMATED METHOD 06/24/2025 3:10 PM [facility] WBC, Urine 2.1 0 - 4 /HPF LAB URINALYSIS - AUTOMATED METHOD 06/24/2025 3:10 PM [facility] Squamous Epithelial, Urine 33 0 - 60 /LPF LAB URINALYSIS - AUTOMATED METHOD 06/24/2025 3:10 PM [facility] Bacteria, Urine Negative Negative /HPF LAB URINALYSIS - AUTOMATED METHOD 06/24/2025 3:10 PM [facility] Hyaline Casts, Urine 1.2 0 - 3 /LPF LAB URINALYSIS - AUTOMATED METHOD 06/24/2025 3:10 PM [facility] Urine Urine specimen obtained by clean catch procedure / Unknown Non-blood Collection / Unknown 06/24/2025 2:25 PM EST 06/24/2025 3:00 PM EST us Fer Nguyen MD LAB URINE ORDERABLES Final Resu lt [facility] [address] [place] [address], * Respiratory virus panel molecular study (06/24/2025 1:52 PM EST) Adenovirus Detection by PCR Not Detected Not Detected LAB MICROBIOLOGY METHOD 06/24/2025 3:01 PM [facility] Influenza A PCR Not Detected Not Detected LAB MICROBIOLOGY METHOD 06/24/2025 3:01 PM [facility] Influenza B PCR Not Detected Not Detected LAB MICROBIOLOGY METHOD 06/24/2025 3:01 PM [facility] Coronavirus 229E Not Detected Not Detected LAB MICROBIOLOGY METHOD 06/24/2025 3:01 PM [facility] Coronavirus HKU1 Not Detected Not Detected LAB MICROBIOLOGY METHOD 06/24/2025 3:01 PM [facility] Coronavirus OC43 Not Detected Not Detected LAB MICROBIOLOGY METHOD 06/24/2025 3:01 PM [facility] Coronavirus NL63 Not Detected Not Detected LAB MICROBIOLOGY METHOD 06/24/2025 3:01 PM [facility] Parainfluenza Virus 1 Not Detected Not Detected LAB MICROBIOLOGY METHOD 06/24/2025 3:01 PM [facility] Parainfluenza Virus 2 Not Detected Not Detected LAB MICROBIOLOGY METHOD 06/24/2025 3:01 PM [facility] Parainfluenza Virus 3 Not Detected Not Detected LAB MICROBIOLOGY METHOD 06/24/2025 3:01 PM [facility] Parainfluenza Virus 4 Not Detected Not Detected LAB MICROBIOLOGY METHOD 06/24/2025 3:01 PM [facility] RSV PCR Not Detected Not Detected LAB MICROBIOLOGY METHOD 06/24/2025 3:01 PM [facility] Human Metapneumovirus A and B Not Detected Not Detected LAB MICROBIOLOGY METHOD 06/24/2025 3:01 PM [facility] Rhinovirus/Entero virus Not Detected Not Detected LAB MICROBIOLOGY METHOD 06/24/2025 3:01 PM [facility] Bordetella pertussis Not Detected Not Detected LAB MICROBIOLOGY METHOD 06/24/2025 3:01 PM [facility] Bordetella parapertussis Not Detected Not Detected LAB MICROBIOLOGY METHOD 06/24/2025 3:01 PM [facility] Mycoplasma pneumo by PCR Not Detected Not Detected LAB MICROBIOLOGY METHOD 06/24/2025 3:01 PM [facility] Chlamydia pneumoniae Not Detected Not Detected LAB MICROBIOLOGY METHOD 06/24/2025 3:01 PM EST [facility] SARS COV-2 Not Detected Not Detected LAB MICROBIOLOGY METHOD 06/24/2025 3:01 PM EST [facility] Swab Both anterior nares / Unknown Non-blood Collection / Unknown 06/24/2025 1:52 PM EST 06/24/2025 2:08 PM EST Narrative [facility] - 06/24/2025 3:01 PM EST Testing was performed using the [employer] Respiratory Pathogen PCR Assay. All results must [...] that are below the limit of detection. Fer Nguyen MD LAB MICROBIOLOGY - [facility] Final Result Performing Organization Address [facility]/ZIP Co de Phone Number [facility] [address] [place] [address], [place] [phone] * Troponin I High Sensitivity (06/24/2025 1:52 PM EST) [facility] High Sensitivity Troponin I 8 <=54 ng/L LAB CHEMISTRY METHOD 06/24/2025 2:58 PM EST [facility] Blood Venous blood specimen / Unknown Venipuncture / Unknown 06/24/2025 1:52 PM EST 06/24/2025 2:09 PM EST Narrative [facility] - 06/24/2025 2:58 PM EST High levels of biotin in samples may falsely decrease hsTroponin values. Use caution when interpreting hsTroponin results in patients taking biotin who exhibit renal impairment (eGFR <60) or in patients taking more than 20 mg/day of biotin. Fer Nguyen MD LAB BLOOD ORDERABLES Final Resu lt Performing Organization Address City/[facility]/ZIP Co de Phone Number [facility] [address] [place] [address], [place] [phone] * B-Type Natriuretic Peptide (BNP) (06/24/2025 1:52 PM EST) [facility] BNP 47 <=100 pcg/mL LAB CHEMISTRY METHOD 06/24/2025 2:55 PM EST [facility] Blood Venous blood specimen / Unknown Venipuncture / Unknown 06/24/2025 1:52 PM EST 06/24/2025 2:09 PM EST Fer Nguyen MD LAB BLOOD ORDERABLES Final Resu lt [facility] [address] [place] [address], [place] [phone] * Lactate, with reflex (06/24/2025 1:43 PM EST) [facility] LACTIC ACID 0.8 0.4 - 2.0 mmol/L LAB CHEMISTRY METHOD 06/24/2025 2:41 PM EST [facility] Blood Venous blood specimen / Unknown Venipuncture / Unknown 06/24/2025 1:43 PM EST 06/24/2025 1:57 PM EST Fer Nguyen MD LAB BLOOD ORDERABLES Final Resu lt [facility] [address] [place] [address], [place] [phone] * Culture blood (06/24/2025 1:43 PM EST) Only the most recent of2 resultswithin the time period is included. [facility] Culture, Blood No growth at 5 days 06/29/2025 3:01 PM EST [facility] Blood Venous blood specimen / Unknown Venipuncture / Unknown 06/24/2025 1:43 PM EST 06/24/2025 1:57 PM EST us Fer Nguyen MD LAB MICROBIOLOGY - GENERAL TIFFANIE MUÑOZ Final Result [facility] [address] [place] [address], [place] [phone] * (ABNORMAL) Comprehensive metabolic panel (06/23/2025 1:10 PM EST) Only the most recent of2 resultswithin the time period is included. Pathologist [facility] Sodium 139 133 - 145 mmol/L LAB CHEMISTRY METHOD 06/23/2025 4:03 PM [facility] Potassium 4.0 3.5 - 5.5 mmol/L LAB CHEMISTRY METHOD 06/23/2025 4:03 PM [facility] Chloride 100 96 - 110 mmol/L LAB CHEMISTRY METHOD 06/23/2025 4:03 PM [facility] CO2 37(H) 21 - 32 mmol/L LAB CHEMISTRY METHOD 06/23/2025 4:03 PM [facility] Anion Gap 2(L) 3 - 11 LAB CHEMISTRY METHOD 06/23/2025 4:03 PM [facility] Glucose 162(H) 70 - 100 mg/dL LAB CHEMISTRY METHOD 06/23/2025 4:03 PM [facility] BUN 15 5 - 25 mg/dL LAB CHEMISTRY METHOD 06/23/2025 4:03 PM [facility] Creatinine 1.09 0.50 - 1.10 mg/dL LAB CHEMISTRY METHOD 06/23/2025 4:03 PM [facility] eGFR 53(L) >=60 mL/min/1. 73m2 LAB CHEMISTRY METHOD 06/23/2025 4:03 PM [facility] Comment:Calculation based on the Chronic Kidney Disease Epidemiology Collaboration (CKD-EPI) equation refit without adjustment for race. BUN/Creatinine Ratio 13.8 LAB CHEMISTRY METHOD 06/23/2025 4:03 PM [facility] Calcium 9.2 8.5 - 10.5 mg/dL LAB CHEMISTRY METHOD 06/23/2025 4:03 PM [facility] AST (SGOT) 16 10 - 42 unit/L LAB CHEMISTRY METHOD 06/23/2025 4:03 PM [facility] ALT (SGPT) 22 10 - 60 unit/L LAB CHEMISTRY METHOD 06/23/2025 4:03 PM [facility] Alkaline Phosphatase 119 42 - 121 unit/L LAB CHEMISTRY METHOD 06/23/2025 4:03 PM [facility] Total Protein 7.2 6.0 - 8.0 g/dL LAB CHEMISTRY METHOD 06/23/2025 4:03 PM [facility] Albumin 3.5 3.2 - 5.0 g/dL LAB CHEMISTRY METHOD 06/23/2025 4:03 PM [facility] Total Bilirubin 0.2 0.0 - 1.4 mg/dL LAB CHEMISTRY METHOD 06/23/2025 4:03 PM [facility] Blood Venous blood specimen / Unknown Venipuncture / Unknown 06/23/2025 1:10 PM EST 06/23/2025 1:29 PM EST Mihaela Barbour MD LAB BLOOD ORDERABLES Final R esult [facility] [address] [place] [address], * TSH (05/27/2025 1:11 PM EDT) TSH 1.26 0.40 - 4.00 mcIU/mL LAB CHEMISTRY METHOD 05/27/2025 3:50 PM EDT [facility] Blood Venous blood specimen / Unknown Venipuncture / Unknown 05/27/2025 1:11 PM EDT 05/27/2025 1:34 PM EDT Mihaela Barbour MD LAB BLOOD ORDERABLES Final R esult Performing Organization Address [facility] Co de Phone Number [facility] [address] [place] [address], [place] [phone] * Thyroxine free (05/27/2025 1:11 PM EDT) Free T4 1.25 0.70 - 1.80 ng/dL LAB CHEMISTRY METHOD 05/27/2025 3:50 PM EDT [facility] Blood Venous blood specimen / Unknown Venipuncture / Unknown 05/27/2025 1:11 PM EDT 05/27/2025 1:34 PM EDT Mihaela Barbour MD LAB BLOOD ORDERABLES Final R esult Performing Organization Address [facility] de Phone Number [facility] [address] [place] [address], [place] [phone] * PET CT Skull to Mid Thigh [...] Signed Date: 05/27/2025 10:34 ET Workstation ID: [id number] Transcribed By: Self Edit Transcribed Date: 05/27/2025 [...] adrenal nodule SUV max 2.4 (previously 2.4 onAuguary 2024) and activity on the right SUV [...] Signed Date: 05/27/2025 10:34 ET Workstation ID: [id number] Transcribed By: Self Edit Transcribed Date: 05/27/2025 [...] Signed Date: 04/18/2025 14:38 ET Workstation ID: [id number] Transcribed By: Self Edit Transcribed Date: 04/18/2025 [...] Signed Date: 04/18/2025 14:38 ET Workstation ID: [id number] Transcribed By: Self Edit Transcribed Date: 04/18/2025 14:17 ET Alba Zapien MD IMG CT PROCEDURES Final Result * Lipid panel (06/08/2023) LDL/HDL Ratio 2 0 - 4 Triglycerides 121 0 - 150 mg/dL Cholesterol 175 0 - 200 mg/dL HDL 91 >=40 mg/dL LDL Cholesterol 60 0 - 100 mg/dL Blood Venous blood specimen / Unknown Historical Provider LAB BLOOD ORDERABLES Tamy l Result * DXA BONE DENSITY STUDY 1+ JAMES HU (09/16/2021 11:06 AM EST) Anatomical Region Laterality [...] Organization Fracture Risk Assessment) [facility] Department of Internal Medicine recommends using National [...] alternative screening schedule based on sadiq Franco., [facility] September 08, 2011 for patients with osteopenia [...] Organization Fracture Risk Assessment) [facility] Department of Internal Medicine recommendsusing National Osteoporosis [...] alternative screening schedule based on sadiq Franco., NEJJanuary 2011 for patients with osteopenia (based on [...] Resu lt * Hepatitis C Screening (05/13/2020) [facility] Hepatitis C Screening Abstracted Historical Provider MD HEALTH MAINTENANCE Final Result from Last 3 Months or Most Recently Relevant to Health Maintenance Insurance [place] [id number] MEDICAID - [place] Advance Directives Documents on File Type Date Recorded Patient Instructional Material Director Expl anation Advance Directives and Living Will 11/26/2024 5:41 PM Deangelo Draper Health Care Proxy * Full Code - Confirmed (Latest Code Status on File) Date Activated Date Inactivated Comments 06/24/2025 9:21 PM 06/26/2025 4:[address] atus was ascertained in the following way: Code status discussion: discussion with patient To update the patient's code status, place a code status order. Do not modify or discontinue any currently active code status orders. * Full Code - Default Date Activated Date Inactivated Comments 12/10/2024 6:14 [...] Draper Spouse Health Care Agent Care Teams Shearer Operator Relationship Specialty Start Date End Date Will Monroe MD [address] [place] [phone] PCP - General Internal Medicine 07/08/24
--- OUTSIDE RECORDS SUMMARY | 2025-07-01 13:56 | XMS_ITS | Encounter Summary ---
Author Organization [facility] Address [address] [place] [address] Care Team Providers Care Photograph Enlarger Name Role Phone Will Monroe MD Primary Care Provider [phone] Reason for Visit * Reason Onset Date Comments Hospital Follow-up 06/30/2025 Encounter Details Date Type Department Care Team (Late st Contact Info) Description 06/30/2025 Telephone Adult Medicine [address] [phone] Will Monroe MD [address] [place] [address] Social History Tobacco Use Types Packs/Day Years [...] care for your loved ones. For example, early childhood director or elderly care for an older [...] Progress Notes * Lucila Thompson RN - 06/30/2025 1:57 PM EST An appointment was made for her to be seen in the office on 07/16/25 at 10:[address] Monroe and she is in agreement with this plan. She was instructed to call the office if she developed any new or worsening symptoms prior to her appointment. * Crystalearl Arellano - 06/30/2025 12:53 PM EST Hospital/ER follow up appointment needed Hospital patient was treated at: [facility] Was this only an ER visit or was the patient admitted to the hospital? Admitted to the hospital/kept overnight Date of visit if ER visit only: N/A If patient was admitted what was the date of discharge? Reason/diagnosis for visit or stay: Lung infection When was the patient told to follow up? Suresh Was visit or stay related to an injury? If yes, what was the date of injury (DOI)? No If yes, was the injury due to: Not 3rd democrat related documented in this encounter Plan of Treatment Upcoming Encounters Date Type Department Care Team (Late st Contact Info) Description 07/03/2025 1:25 PM EST Office Visit Pulmonology - [place] [address] [facility] [address] [place] [phone] Jelena Hoff, CARY [address] [place] [phone] 07/08/2025 11:15 AM EST Office Visit [facility] Hematology Oncology [address] [place] [phone] Mihaela Barbour MD [address] [place] [address] 07/08/2025 11:30 AM EST Appointment [facility] Infusion Center [address] [phone] 07/08/2025 2:30 PM EST Appointment [facility] Radiation Oncology [address] [place] [phone] Raymond Nash MD [address] [place] [address] 07/16/2025 10:30 AM EST Office Visit Adult Medicine [facility] [address] [place], [place] [phone] Will Monroe MD [address] [place] [address] 08/20/2025 11:00 AM EST Office Visit Pulmonology [facility] [address] [facility] [address] [place] [phone] Jelena Hoff, CARY [address] [place] [phone] 03/03/2026 11:00 AM EDT Appointment [facility] Ultrasound [address] [place] [phone] 04/01/2026 11:30 AM EDT Office Visit Vascular Surgery - [place] [address] [place] [phone] Krupa Garcia MD [address] [place] [phone] documented as of this encounter Visit Diagnoses Not on filedocumented in this encounter Care Teams Photograph Enlarger Relationship Specialty Start Date End Date Will Monroe MD [address] [place] [address] PCP - General Internal Medicine 07/08/24 documented as of this encounter
--- OUTSIDE RECORDS SUMMARY | 2025-07-01 13:56 | XMS_ITS ---
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 ([facility], [facility] V28) 05/13/2025 Pulmonary emphysema ([facility] [place], [facility] V28) 0 02/19/2025 Former heavy cigarette smoker (20-39 per day) 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 ([facility] [place], [facility] V28) 02/19/2025 Fall 02/06/2025 Small cell lung cancer, left lower lobe ([facility], [facility] V28) 12/26/2024 Cancer Staging:Clinical stage from 01/16/2025:Stage IA2(cT1b, cN0, cM0) - Signed by Alba Zapien MD on 01/16/2025 Rib pain on right side 12/25/2024 Exercise hypoxemia 12/25/2024 Cognitive impairment 12/25/2024 CAD in [place] artery 12/25/2024 Lung nodule 12/03/2024 Acute respiratory failure wi th hypoxia and hypercapnia ([facility], [facility] V28) 11/25/2024 Pulmonary nodule 10/07/2024 Assessment & [...] Hilar lymphadenopathy 10/07/2024 Osteopenia 09/16/2021 Psoriatic arthritis ([facility] V24, [facility] V28) 1 10/12/2020 Overview (06/12/2024): Debbyira started [...] kidney disease) stage 3, GFR 30-59 ml/min ([facility] V24, [facility] V28) 03/13/2018 Hyperlipidemia 03/13/2018 Multilevel degenerative disc disease 03/13/2018 Renal calculi 03/13/2018 Overview (06/12/2024): Right, small and nonobstructing Irritable bowel syndrome 03/08/2018 Dermatochalasis of both upper eyelids 11/22/2017 Overview (06/12/2024): Severe bilateral senile ptosis, 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 Nuclear sclerosis of both eyes 11/22/2017 Anxiety 07/24/2017 Overview (06/12/2024): Followed by ADELA Rose, Amari. 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 On Dilantin Thrombocytopenia ([facility] V24) 07/24/2017 Vitamin D deficiency 07/24/2017 Current [...] 1 , Cycle 2 - Planned for 07/01/2025) Next Day (Day 1, Cycle 3 - Planned for 07/29/2025) durvalumab (IMFINZI)durvalumab (IMFINZI) chemo IVPB 250 mL [...] Episode Provider 02/04/2025 03/18/2025 Lung Curative Rowena Garibay NP * Linked Problems Treatment Courses* Course [...]
== END 2025-07-01 11:57 | disposition home or self-care (01) ==
LOC: HO.HOP 11:56
PROVIDERS: PCP Internal Medicine; Visit Provider Clinical Nurse Specialist Psychiatric/Mental Health
DX: R45.89 Other symptoms and signs involving emotional state (principal); F33.1 Major depressive disorder, recurrent, moderate; F43.10 Post-traumatic stress disorder, unspecified
CPT/HCPCS: 99213

== ENCOUNTER 2025-08-12 12:06 | Outpatient (AMB) | payer MEDICARE, SELFPAY ==
--- OUTSIDE RECORDS SUMMARY | 2025-08-08 10:35 | XMS_ITS | Encounter Summary ---
Author Organization [facility] Address [address] [place] [address] Care Team Providers Care Clean Out Driller Helper Name Role Phone Will Monroe MD Primary Care Provider [phone] Reason for Visit * Reason Comments Hospital Follow-up [facility]-07/17 breathing problems Encounter Details Date Type Department Care Team (Late st Contact Info) Description 08/08/2025 10:35 AM EST Office Visit Pulmonology - [facility] [address] [facility] [address] [facility] [address] [place] [address] Jelena Hoff, CARY [address] [place] [address] Chronic obstructive pulmonary disease, unspecified COPD type (CMS/HCC V24, CMS/HCC V28) (Primary Dx); Small cell lung cancer, left lower lobe (CMS/HCC V24, CMS/HCC V28); Seizure disorder (CMS/HCC V24, CMS/HCC V28); 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 No 07/18/2025 Food Access & Nutrition Answer Date Rec orded Do you have access to a vari ety of food including fruits and vegetables? Yes 07/18/2025 Access to Healthcare Answer Date Record ed Within the last 3 months, ho w many times did you visit the emergency department for your medical care? 0 07/18/2025 Health Literacy Answer Date Recorded How often do you need to hav e someone help you when you read instructions, pamphlets, or other written material from your doctor or pharmacy? Sometimes 07/18/2025 Caregiver: How often do you need to have someone help you when you read instructions, pamphlets, or other written material from your doctor or pharmacy? Not on file 07/18/2025 Financial Risk Answer Date Recorded How hard is it for you to pa y for the very basics like food, housing, medical care, and air conditioning / heating? Not very hard 07/18/2025 Transportation Answer Date Recorded Has the lack of transportati on kept you from meetings, work, or from getting things needed for daily living? No Has the lack of transportati on kept you from medical appointments or from getting medications? No 07/18/2025 Social Isolation Answer Date Recorded How often do you feel lonely or isolated from th ose around you? Never 07/18/2025 Food Risk Answer Date Recorded Within the past 12 months we worried whether our food would run out before we got money to buy more. Never true 025 Within the past 12 months th e food we bought just didn't last and we didn't have money to get more. Sometimes true 07/18/2025 Dependent Care Answer Date Recorded Do you need help finding or paying for care for your loved ones. For example, children librarian or elderly care for an older adult? No 07/18/2025 Education Answer Date Recorded Do you think completing more education or training, like finishing a GED, going to college, or learning a trade, would be helpful for you? No 07/18/2025 Employment and Income Answer Date Recor ded During the last four weeks, have you been actively looking for work? No 07/18/2025 Living Situation Answer Date Recorded What is your living situation? Unrecognized valu e 07/18/2025 Interpersonal Safety Answer Date Record ed Physical Abuse Unrecognized value 07/18/2025 Verbal Abuse Unrecognized value 07/18/2025 Comments No Sex and Gender Information Value Date Recorded Sex Assigned at Female 10/18/2024 2:01 PM EST Legal Sex Female 1:52 AM EST Gender Identity Female 10/18/2024 2:01 PM EST Sexual Orientation Straight 10/18/2024 2: 01 PM EST documented as of this encounter Last Filed Vital Signs Vital Sign Reading Time Taken Comments Blood Pressure 134/78 08/08/2025 10:31 AM EST Pulse 67 08/08/2025 10:31 AM EST Temperature 36.6 C (97.9 F) 08/08/2025 10:31 AM EST Respiratory Rate 18 08/08/2025 10:3 1 AM EST Oxygen Saturation 92% 08/08/2025 10: 31 AM EST w 2 L of Oxygen Inhaled Oxygen Concentration - - Weight - - Height - - Body Mass Index - - documented in this encounter Progress Notes * Jelena Hoff NP - 08/08/2025 10:35 AM EST ADULT PULMONARY MEDICINE FOLLOW UP/ HOSPITAL FOLLOW UP CHIEF COMPLAINT or REASON FOR CONSULTATION: Hospital Follow-up ([facility]-07/17 breathing problems) FIRST VISIT IN THIS PULMONARY CLINIC 07/10/2024 See note for further assessment information. IDENTIFIER Rita Draper is a 75 y.o. years old, female History of Present Illness The patient is a 75-year-old female who presents for a hospital follow-up. She accompanied by her today. She is on wheelchair with POC at setting 2 setting at 92% but when transferred to rans between 88-90%. She has been diagnosed with COPD and lung cancer and was previously hospitalized due to breathing difficulties but this time for elevated pulse rate of 158. During her hospital stay, was noted to have significant CO2 at 72 by venous blood gases and was placed on NIV shortly which helped but patientstates did not like mask. She also been hospitalized or see in ER for exacerbation 4 times in the last 6 months. Her breathing worsened since then. she was prescribed a Xopenex nebulizer to be used three times daily for a duration of 10 days which she completed. She has not used the nebulizer for approximately 10 days but uses Albuterol instead, which did not need to use this week. She reports improved breathing since her hospital discharge. She experiences occasional wheezing and shortness of breath when ascending stairs, necessitating two rest periods during a 13-step climb. Her shortness of breath has improved since her hospitalization. She is unable to walk long distances and experiences heart palpitations after climbing stairs. She is using Advair 250/50 twice per day and Spiriva 18 mcg daily. She is a mouth breather and has been advised to use oral tape to encourage nasal breathing at night. She was prescribed prednisone upon her hospital discharge, which was subsequently tapered off. Shewas also prescribed levalbuterol, which she has discontinued. She is currently on Spiriva, taken once daily in the morning, and Advair, administered as one puff twice daily. She has discontinued the use of DuoNeb and Pulmicort. She is not taking montelukast. She has not used the nebulizer this weekand only once last week. She is on oxygen therapy at home, administered at 1.5 liters per minute, and uses a pulse oximeter to monitor her oxygen levels. She has been advised to maintain her oxygen sa turation between 88-92 percent. She has been advised to perform pursed lip breathing exercises. Shehas been advised to rinse her mouth regularly to prevent oral thrush. She has been advised to undergo a stress test on 08/20/2025. She experiences anxiety and nervousness, particularly when her heart rate increases. ALLERGIES: Allergies Allergen Reactions Aspirin Rash and Anaphylaxis Other Reaction(s): Rash/Dermatitis Penicillins Rash and Anaphylaxis Other Reaction(s): Rash/Dermatitis Azithromycin Nausea And Vomiting and Hives Per provider, upset stomach, to take with food. NOT allergic Tetracyclines Nausea And Vomiting Latex Hives Other Reaction(s): Hives/Urticaria Sulfa (Sulfonamide Antibiotics) Hives Other Reaction(s): Hives/Urticaria Tetracycline Nausea And Vomiting ACTIVE MEDICATIONS: Outpatient Medications Marked as Taking for the 08/08/25 encounter (Office Visit) with Jeelna Hoff NP Medication Sig Dispense Refill adalimumab [...] (one) time each day. 90 tablet 1 cyanocobalamin (VITAMIN B-12) 1,000 mcg tablet Take 1 tablet (1,000 mcg total) by mouth 1 (one) time each day. 90 each 1 diazePAM (VALIUM) 10 mg tablet Take 0.5 tablets (5 mg total) by mouth every 8 (eight) hours if needed for anxiety. for anxiety Max Daily Amount: 15 mg diclofenac (VOLTAREN) 1 % topical gel Apply 2 gram four times daily to affected joint 100 g 0 fluticasone-salmeterol (ADVAIR DISKUS) 250-50 mcg/dose diskus inhaler Inhale 1 puff by mouth 2 (two) times a day. Rinse mouth with water after use to reduce aftertaste and incidence of candidiasis. Do not swallow. 60 each 11 [Paused] furosemide (LASIX) 20 mg tablet Take 1 tablet (20 mg total) by mouth 1 (one) time each day. 90 each 1 guaiFENesin (MUCINEX) 600 mg 12 hr tablet Take 1 tablet (600 mg total) by mouth every 12 (twelve) hours. Do not crush, chew, or split. 60 each 0 levalbuterol (XOPENEX) 1.25 mg/3 mL nebulizer solution Take 1 ampule by nebulization every 8 (eight) hours if needed for wheezing or shortness of breath. lidocaine (LIDODERM) 5 % patch Apply 1 patch topically 1 (one) time each day. Remove & discard patch within 12 hours or as directed by MD. 30 each 0 mirtazapine (REMERON) 15 mg tablet Take 1.5 tablets (22.5 mg total) by mouth at bedtime. nicotine (NICODERM CQ) 21 mg/[address] 1 patch on the skin 1 (one) time each day. 30 each 0 ondansetron ODT (ZOFRAN-ODT) 4 mg disintegrating tablet DISSOLVE ONE TABLET IN MOUTH EVERY EIGHT HOURS NEEDED FOR NAUSEA 30 each 0 phenytoin (DILANTIN) 100 mg ER capsule TAKE ONE CAPSULE TWICE DAILY 270 capsule 0 simvastatin (ZOCOR) 20 mg tablet Take 1 tablet (20 mg total) by mouth at bedtime. 90 tablet 1 [DISCONTINUED] budesonide (PULMICORT) 0.5 mg/2 mL nebulizer solution Take 2 mL (0.5 mg total) by nebulization 2 (two) times a day for 10 days. Rinse mouth with water after use to reduce aftertaste and incidence of candidiasis. Do not swallow. 40 mL 0 [DISCONTINUED] ipratropium-albuteroL (DUONEB) 0.5-2.5 mg/3 mL nebulizer solution Take 3 mL by nebulization every 6 (six) hours for 10 days. 120 mL 0 [DISCONTINUED] levalbuterol (XOPENEX) 0.63 mg/3 mL nebulizer solution Take 1 ampule by nebulization3 (three) times a day. 72 mL 0 [DISCONTINUED] loperamide (Imodium A-D) 2 mg tablet Take 4 mg PO at onset of diarrhea, then 2 mg every two hours until diarrhea free for 12 hours. 60 tablet 2 [DISCONTINUED] prochlorperazine (COMPAZINE) 10 mg tablet Take 1 tablet (10 mg total) by mouth every6 (six) hours if needed for nausea or vomiting. 60 tablet 3 PROVIDER ATTESTS THAT THE MEDICATION LIST WAS OBTAINED, REVIEWED AND UPDATED. REVIEW OF SYSTEMS: GENERAL: Negative for malaise, significant weight loss and fever but +fatigued. HEENT: No changes in hearing or vision, no nose bleeds or other nasal problems NECK: Negative for lumps, goiter, pain and significant neck swelling RESPIRATORY: see HPI CARDIOVASCULAR: No chest pain, leg swelling or +palpitations GI: No abdominal discomfort, blood in stools [...] Patient Active Problem List Diagnosis Date Noted Acute on chronic respiratory failure with hypoxia and hypercapnia ([facility] V24, [facility] V28) 07/17/2025 Acute hypoxic respiratory failure ([facility] V24, [facility] V28) 06/24/2025 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 ([facility] V24, [facility] V28) 05/13/2025 Pulmonary emphysema ([facility] V24, [facility] V28) 02/19/2025 Former heavy cigarette smoker (20-39 per day) 02/19/2025 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 ([facility] V24, [facility] V28) 02/19/2025 Fall 02/06/2025 Small cell lung cancer, left lower lobe ([facility] V24, [facility] V28) 12/26/2024 Rib pain on right side 12/25/2024 Exercise hypoxemia 12/25/2024 Cognitive impairment 12/25/2024 CAD in [place] artery 12/25/2024 Lung nodule 12/03/2024 Acute respiratory failure with hypoxia and hypercapnia ([facility] V24, [facility] V28) 11/25/2024 Pulmonary nodule 10/07/2024 Hilar lymphadenopathy 10/07/2024 Osteopenia 09/16/2021 Psoriatic arthritis ([facility] V24, [facility] V28) 08/11/2021 History of COVID-19 08/11/2021 Psoriasis 07/08/2020 Positive Lyme disease serology 06/18/2020 Elevated rheumatoid factor 06/11/2020 GERD (gastroesophageal reflux disease) 04/10/2019 Helicobacter positive gastritis 10/23/2018 CKD (chronic kidney disease) stage 3, GFR 30-59 ml/min ([facility] V24, [facility] V28) 03/13/2018 Hyperlipidemia 03/13/2018 Multilevel degenerative disc disease 03/13/2018 Renal calculi 03/13/2018 Irritable bowel syndrome 03/08/2018 Dermatochalasis of both upper eyelids 11/22/2017 Nuclear sclerosis of both eyes 11/22/2017 Anxiety 07/24/2017 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) 07/24/2017 COPD with acute exacerbation ([facility] V24, [facility] V28) 07/24/2017 Depression 07/24/2017 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 Headache 07/24/2017 Hypertension 07/24/2017 Occlusion of left carotid artery 07/24/2017 Seizure disorder ([facility] V24, [facility] V28) 07/24/2017 Thrombocytopenia ([facility] V24) 07/24/2017 Vitamin D deficiency 07/24/2017 Past Surgical History: Procedure Laterality Date APPENDECTOMY PROCEDURE: HISTORICAL APPENDECTOMY; COMMENT: age 10 BLEPHAROPLASTY DENTAL SURGERY wears partial bridge per pt OOPHORECTOMY Right PROCEDURE: HISTORICAL OOPHORECTOMY; COMMENT: partial OTHER SURGICAL HISTORY Left 09/2016 PROCEDURE: [place] OPTX ILIAC TUBRST AVLS/WING FX FIXJ IF PRFRMD; COMMENT: s/p pelvic repair, [place]'s TONSILLECTOMY PROCEDURE: HISTORICAL TONSILLECTOMY UPPER GASTROINTESTINAL ENDOSCOPY 10/03/2018 PROCEDURE: UPPER GI ENDOSCOPY/EXAM; COMMENT: mild edema UPPER GASTROINTESTINAL ENDOSCOPY 02/13/2019 PROCEDURE: UPPER GI ENDOSCOPY/EXAM; COMMENT: non specific edema, biopsy pending SOCIAL HISTORY: TOBACCO: Started 22 years old, Quit: 05/2024, around 1.5 pack daily at the most, for at least 50 years. Patient is 73 PPY. 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 IMMUNIZATION: 2023 Influenza Vaccine 2018 Pneumococcal 13 2020 Pneumococcal 23 2021 Pfizer x3 PULMONARY HOSPITALIZATION Hx: At: [facility] Admitted: 07/17-07/19/2025 Reasons/Diagnosis: Acute RF due to COPD exacerbation with elevated CO2 with need for NIV use. At: [facility] Admitted: 06/24-06/26/2025 Reasons/Diagnosis: Acute RF due to COPD exacer, complicated by chocking. At: [facility] Admitted: 05/22-05/28/2024 Reasons/Diagnosis: Acute RF due to COPD exacer. At:[facility] Date:?2004 Reason: PNA with COPD exacerbation Visit Vitals BP 134/78 Pulse 67 Temp 36.6 ??C (97.9 ??F) (Temporal) Resp 18 LMP (LMP Unknown) SpO2 92% Comment: w 2 L of Oxygen OB Status Postmenopausal Smoking Status Former Physical Exam General Appearance: Overweight(27.45). Alert and in no acute distress. Speaks in full sentences. Nostridor. Eyes: Conjunctiva and sclera normal. Nose/Sinus: Nares normal. Septum midline. Mucosa pink with no drainage or sinus tenderness. Mouth/Throat: Oral mucosa pink and moist without thrush, lesions or erythema. Mallampati class IV. Neck: Neck supple with normal circumference, thyroid symmetric and of normal size. Respiratory: Vesicular sound diminished with mild wheezing but no crackles, rhonchi, rales or rubs. Cardiovascular: RRR with normal S1 and S2, no murmurs, no gallops, no JVD appreciated. Gastrointestinal: Bowel sounds normoactive, soft, non-tender. Lymphatic: No cervical and supra-clavicular lymphadenopathy. Extremities: Cool but well perfused without clubbing, cyanosis, or edema. Skin: Warm and dry, no rash. Neurological: Awake, alert and oriented x 3, no focalization. DIAGNOSTIC DATA: Peripheral oxygen saturation or SpO2 on RA today is 92% w 2L and 88% on RA 07/10/2024 6 Minute Walk Test Showed: 1.Lowest [...] assessment. 05/23/2024 CT CHEST WO CONTRAST AT [facility] SHOWED: FINDINGS: Trachea and airways: Patent without [...] Images: Fromthe [employer] 2017. ASSESSMENT: 1. Chronic obstructive pulmonary disease, unspecified COPD type (CMS/HCC V24, CMS/HCC V28) 2. Small cell lung cancer, left lower lobe (CMS/HCC V24, CMS/HCC V28) 3. Seizure disorder (CMS/HCC V24, CMS/HCC V28) 4. 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 Chronic respiratory failure with hypoxia and hypercapnia (CMS/HCC V24, CMS/HCC V28) 6. Overweight (BMI 25.0-29.9) Assessment & Plan 1. Chronic Obstructive Pulmonary Disease (COPD): Chronic. CO2 levels persistently elevated, necessitating frequent hospital visits for CO2 clearance. - Continue current medications: Spiriva 1 puff once daily, Advair 250 mcg 1 puff twice daily. - Use levalbuterol via nebulizer or NIV once received if experiencing difficulty breathing. - Perform pursed lip breathing exercises. - Use oral tape at night to promote nasal breathing. 2. Chronic Respiratory Failure due to COPD with Hypercapnia and Hypoxia: Multiple hospitalizations in the last 6 months with CO2 on venous blood gases at 70's. Require NIV for evacuation in the hospital. Her PFT shows significant obstruction with FEV1-39% and poor diffusion capacity. We have discussed the need for Astral home mechanical ventilation with Rita Draper who suffers from Chronic Respiratory Failure due to COPD stage III. Due to severe and life threatening disease state the Astral NIVis being prescribed today. . Because of elevated CO2 at 72 during most recent hospitalization the Astral will help to limit hospital readmissions, longer hospital stays and improved quality of patient's life by improving her breathing related issues. Patient require a tidal volute and battery back up with alarms due to this severe disease state. All other therapies are tried and failed. She has not documented hx of ERICKSON. 2. Anxiety: Chronic. - Practice deep breathing exercises to manage anxiety. - Continue taking aripiprazole for mental health. Follow-up - Follow up in 6 weeks. - The patient was educated about respiratory [...] instructed the patient to follow-up with in 6 weeks and as needed in the interim if other concerns/worsening symptoms. - Follow up with Will Monroe MD for the other co-morbidities. Thanks Will Monroe MD for allowing me to have the opportunity to assist in the care of this patient. I have obtained verbal consent from Rita Draper prior to the recording. I have advised Rita Bonny that she may refuse the recording and require the recording to be turned off at any time during thisencounter. documented in this encounter Plan of Treatment Upcoming Encounters Date Type Department Care Team (Late st Contact Info) Description 08/19/2025 9:30 AM EST Ancillary Procedure [facility] [address] [facility] [address] [place] [address] 09/02/2025 11:00 AM EST Appointment [facility] Infusion Center [address] 2nd [place] [address] 09/09/2025 11:15 AM EST Office Visit [facility] Hematology Oncology [address] [place] [phone] Mihaela Barbour MD [address] [place] [address] 10/01/2025 10:10 AM EST Office Visit Pulmonology - [facility] [address] [facility] [address] [place] [phone] Jelena Hoff NP [address] [place] [phone] 10/14/2025 1:30 PM EST Office Visit Adult Medicine [facility] [address] [place], [place] [phone] Will Monroe MD [address] [place], [place] 03/03/2026 11:00 AM EDT Appointment [facility] Ultrasound [address] [place] [address] 04/01/2026 11:30 AM EDT Office Visit Vascular Surgery - [place] [address] [place] [phone] Krupa Garcia MD [address] [place] [phone] documented as of this encounter Visit Diagnoses Diagnosis Chronic obstructive pulmonary disease, unspecified COPD type ([facility] V24, [facility] V28)- Primary Small cell lung cancer, left lower lobe ([facility] V24, [facility] V28) Seizure disorder ([facility] V24, [facility] V28) Unspecified epilepsy without mention of intractable epilepsy 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 ([facility] V24, [facility] V28) Chronic respiratory failure with hypoxia and hypercapnia ([facility] V24, [facility] V28) Overweight (BMI 25.0-29.9) Overweight documented in this encounter Discontinued Medications Medication Sig Discontinue Reason Start Date End Da te prochlorperazine (COMPAZINE) 10 mg tabletIndications:Smal l cell lung cancer, left lower lobe (CMS/HCC V24, CMS/HCC V28),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 (CMS/HCC V24, CMS/HCC V28),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 05/28/2025 08/08/2025 budesonide (PULMICORT) 0.5 mg/2 mL nebulizer solutionIndications:CO PD with acute exacerbation (CMS/HCC V24, CMS/HCC V28) Take 2 mL (0.5 mg total) by nebulization 2 (two) times a day for 10 days. Rinse mouth with water after use to reduce aftertaste and incidence of candidiasis. Do not swallow. 06/26/2025 08/08/2025 ipratropium-albuteroL (DUONEB) 0.5-2.5 mg/3 mL nebulizer solutionIndications:CO PD with acute exacerbation ([facility] V24, [facility] V28) Take 3 mL by nebulization every 6 (six) hours for 10 days. 07/03/2025 08/08/2025 levalbuterol (XOPENEX) 0.63 mg/3 mL nebulizer solutionIndications:Ac modoc on chronic respiratory failure with hypoxia and hypercapnia ([facility] V24, [facility] V28) Take 1 ampule by nebulization 3 (three) times a day. 07/19/2025 08/08/2025 documented as of this encounter Historical Medications * This list may reflect changes made after this encounter. levalbuterol (XOPENEX) 1.25 mg/3 mL nebulizer solution Take 1 ampule by nebulization every 8 (eight) hours if needed for wheezing or shortness of breath. 07/19/2025 added in this encounter Additional Health Concerns Assessment Noted Time PHQ-9 Depression Total Score: 0 07/25/20 25 10:40 AM EST documented as of this encounter Care Teams Clean Out Driller Helper Relationship Specialty Start Date End Date Will Monroe MD [address] [place] [address] PCP - General Internal Medicine 07/08/24 documented as of this encounter
--- NOTE | 2025-08-12 11:05 | MHC.OFFVISPS ---
Intake Intake Visit Reasons: depression Conference Planning Manager Required: No Allergies No Known Allergies Allergy (Verified 01/30/24 12:28) Medication List - Last Reconciled 08/12/25 by Angie Neely APRN aripiprazole (Abilify) 5 mg PO DAILY carvedilol 12.5 mg PO BID clonidine HCl 0.1 mg PO BID clopidogrel 75 mg PO DAILY cyanocobalamin (vitamin B-12) 1,000 mcg PO DAILY diazepam 10 mg orally take 1 & 1/2 tab in morning and one tab at 3pm, and one at 10pm PRN; furosemide 20 mg PO DAILY levofloxacin mg PO mirtazapine (Remeron) 22.5 mg (1.5 x 15 mg) PO BEDTIME neomycin-polymyxin B-dexameth 3.5mg/mL-10,000 unit/mL-0.1 % drps ophthalmic (eye) ondansetron mg PO phenytoin sodium extended 100 mg PO TID simvastatin 20 mg PO BEDTIME tiotropium bromide (Spiriva with HandiHaler) 1 cap inhalation DAILY HPI- Psychiatric Chief Complaint: depression HPI Narrative: Pt follow up done via telehealth; pt reports she is feeling better; she was in hospital for 2 days around [facility] for co2 build up. her diazepam was reduced. she has vna 2x week and PT 2 days a week. she is sleeping well with changes to remeron. She is getting immunotherapy once every 4 week; she will get for 1 full year. She is back to playing cards with her social group 4 days a week, She is getting good support from friends and family. Mood is improved. Pt is adherent with meds. she denies SI or HI. Past Psychiatric History: No IPLOC. anxiety started at age 3, always scared, constant worried thoughts, depression and anxiety for many years; her mother when she was 2 yo and pt had a difficult life with father and step mother intermittently being available- she and sister were frequently in foster care; pt has been in and out of treatment for years -outpatietn tx only . Subjective Subjective Medication Compliance: Yes Side effects from medications: No Review of Systems Medical Review of Systems: unchanged Mental Status Exam Mental Status Exam Patient Orientation: Person, Place, Time and Situation Level of Consciousness: Awake Patient Behavior: Appropriate Mood Description: Anxious and Sad Patient Cognition Impaired: No Ability to Follow Directions: Good Speech Pattern: Clear, Appropriate and Coherent Memory Description: Intact Hallucinations: None Delusions: Not Present Thought Process: Intact and Goal Oriented Thought Content: positive for Intact and positive for Goal Oriented Judgement: Good Assessment and Plan Assessment & Plan (1) Anxiety about health: Status: Acute Code(s): R45.89 - Other symptoms and signs involving emotional state (2) Major depressive disorder, recurrent episode, moderate with anxious distress: Status: Acute Code(s): F33.1 - Major depressive disorder, recurrent, moderate (3) PTSD (post-traumatic stress disorder): Status: Acute Code(s): F43.10 - Post-traumatic stress disorder, unspecified Plan diazepam to 5 mg TID NOTE: dilantin makes valium less bio-available abilify to 5 mg daily remeron to 22.5mg at bedtime follow up in 4 weeks Medications: New diazepam (Valium) 5 mg PO TID 90 tabs 3RF anxiety Refilled mirtazapine (Remeron) 22.5 mg (1.5 x 15 mg) PO BEDTIME 135 tabs 0RF aripiprazole (Abilify) 5 mg PO DAILY 90 tabs 0RF Discontinued diazepam Discontinued Reason: Doctor's Order 10 mg orally take 1 & 1/2 tab in morning and one tab at 3pm, and one at 10pm PRN; 135 tabs 2RF anxiety Counseling and coordination of Care Pt. Self Management counseling: Maintenance-social rhythm, Nutrition education and improvement, Sleep hygiene and General coping skills Medication management counseling: Effectiveness, Side effects and Adherence Diagnosis and Prognosis Counseling: Accuracy of diagnosis, Prognosis over time, Impact of diagnosis on life functions and Adequacy of current interventions Details: I spent 20 minutes reviewing the record, seeing the patient and documenting in the medical record. Counseling provided to the patient/caregiver as outlined below. Addressed patient/caregiver concerns regarding current medication regime including effective adherence. Addressed patient/caregiver concerns regarding diagnosis and prognosis including accuracy of diagnosis, prognosis over time, impact of diagnosis. Addressed patient/caregiver concerns regarding impact of recent stressors. PFSH Social History: lives with ; 2 adult daughters- estranged from one Substance History: none Trauma History: foster care as child- multiple homes Coding Level of Care Code Tele Est Pt Level 3 ([id number]) Diagnoses Anxiety about health R45.89 Major depressive disorder, recurrent episode, moderate with anxious distress F33.1 PTSD (post-traumatic stress disorder) F43.10
--- OUTSIDE RECORDS SUMMARY | 2025-08-12 13:18 | XMS_ITS | Clinical Summary ---
Author Organization [facility] Address [address] [place] [address] Phone Care Team Providers Care Can Line Operator Name Role Phone Will Monroe MD Primary Care Provider [phone] Allergies Active Allergy Reactions Criticality Noted Date [...] mouth 1 (one) time each day. Active mirtazapine (REMERON) 15 mg tablet Take 1.5 tablets (22.5 mg total) by mouth at bedtime. 024 Active simvastatin (ZOCOR) 20 mg tablet Take [...] each day. 90 each 1 025 Active phenytoin (DILANTIN) 100 mg ER capsuleIndication s:Seizure disorder (CMS/[facility] V24, CMS/[facility] V28) TAKE ONE CAPSULE TWICE DAILY 270 capsule Active ondansetron ODT (ZOFRAN-ODT) 4 mg disintegrating tablet DISSOLVE ONE TABLET IN MOUTH EVERY EIGHT HOURS NEEDED FOR NAUSEA 30 each Active carvediloL (COREG) 12.5 mg tablet TAKE ONE TABLET TWICE DAILY 180 tablet Active cloNIDine (CATAPRES) 0.1 mg tablet TAKE ONE TABLET TWICE DAILY 180 tablet Active nicotine (NICODERM CQ) 21 mg/[address] 1 patch on the skin 1 (one) time each day. 30 each Active fluticasone-salme terol (ADVAIR DISKUS) 250-50 mcg/dose diskus inhalerIndication s:COPD with acute exacerbation ([facility] V24, [facility] V28) Inhale 1 puff by mouth 2 (two) times a day. Rinse mouth with water after use to reduce aftertaste and incidence of candidiasis. Do not swallow. 60 each 025 2025 Active lidocaine (LIDODERM) 5 % patch Apply 1 patch topically 1 (one) time each day. Remove & discard patch within 12 hours or as directed by MD. 30 each 025 2024 Active diclofenac (VOLTAREN) 1 % topical gel Apply 2 gram four times daily to affected joint 100 g Active cyanocobalamin (VITAMIN B-12) 1,000 mcg tablet Take 1 tablet (1,000 mcg total) by mouth 1 (one) time each day. 90 each 1 Active diazePAM (VALIUM) 10 mg tablet Take 0.5 tablets (5 mg total) by mouth every 8 (eight) hours if needed for anxiety. for anxiety Max Daily Amount: 15 mg Active guaiFENesin (MUCINEX) 600 mg 12 hr tablet Take 1 tablet (600 mg total) by mouth every 12 (twelve) hours. Do not crush, chew, or split. 60 each 025 2025 Active levalbuterol (XOPENEX) 1.25 mg/3 mL nebulizer solution Take 1 ampule by nebulization every 8 (eight) hours if needed for wheezing or shortness of breath. Active diazePAM (VALIUM) 10 mg tablet Take 1 Tablet by mouth every 8 hours as needed for Anxiety. 023 2024 Discontinued prochlorperazine (COMPAZINE) 10 mg tabletIndications [...] vomiting. 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 60 tablet 2 025 2024 Discontinued budesonide (PULMICORT) 0.5 mg/2 mL nebulizer solutionIndicatio ns:COPD with acute exacerbation (CMS/HCC V24, CMS/HCC V28) Take 2 mL (0.5 mg total) by nebulization 2 (two) times a day for 10 days. Rinse mouth with water after use to reduce aftertaste and incidence of candidiasis. Do not swallow. 40 mL 2024 Discontinued ipratropium-albut Andreina (DUONEB) 0.5-2.5 mg/3 mL nebulizer solutionIndicatio ns:COPD with acute exacerbation (CMS/[facility] V24, CMS/HCC V28) Take 3 mL by nebulization every 6 (six) hours for 10 days. 120 mL 2024 Discontinued acetaminophen (TYLENOL) 325 mg tablet Take 2 tablets (650 mg total) by mouth every 4 (four) hours if needed for mild pain, headaches or fever - temperature GREATER than 38 C (100.4 F) for up to 10 days. 30 tablet 2024 Discontinued guaiFENesin (MUCINEX) 600 mg 12 hr tablet Take 1 tablet (600 mg total) by mouth every 12 (twelve) hours. Do not crush, chew, or split. 60 each 2024 Discontinued ondansetron ODT (ZOFRAN-ODT) 4 mg disintegrating tabletIndications :Acute hypoxic respiratory failure (CMS/HCC V24, CMS/HCC V28),Acute respiratory failure with hypoxia and hypercapnia (CMS/HCC V24, CMS/HCC V28),Anxiety Take 1 tablet (4 mg total) by mouth every 8 (eight) hours if needed for vomiting or nausea for up to 7 days. 20 tablet 2024 Discontinued(S top Taking at Discharge) predniSONE (DELTASONE) 10 mg tablet Take 4 tablets (40 mg total) by mouth 1 (one) time each day for 2 days, THEN 3 tablets (30 mg total) 1 (one) time each day for 2 days, THEN 2 tablets (20 mg total) 1 (one) time each day for 2 days, THEN 1 tablet (10 mg total) 1 (one) time each day for 2 days. 42 tablet 2024 Discontinued levalbuterol (XOPENEX) 0.63 mg/3 mL nebulizer solutionIndicatio ns:Acute on chronic respiratory failure with hypoxia and hypercapnia (CMS/HCC V24, CMS/HCC V28) Take 1 ampule by nebulization 3 (three) times a day. 72 mL 025 2024 Discontinued acetaminophen (TYLENOL) 325 mg tablet Take 2 tablets (650 mg total) by mouth every 4 (four) hours if needed for mild pain, headaches or fever - temperature GREATER than 38 C (100.4 F) for up to 10 days. 30 tablet 025 2024 predniSONE (DELTASONE) 10 mg tablet Take 4 tablets (40 mg total) by mouth 1 (one) time each day for 2 days, THEN 3 tablets (30 mg total) 1 (one) time each day for 2 days, THEN 2 tablets (20 mg total) 1 (one) time each day for 2 days, THEN 1 tablet (10 mg total) 1 (one) time each day for 2 days. 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) 07/24/2017 COPD with acute exacerbation 07/24/2017 Overview (06/12/2024): Chronic bronchitis Depression 07/24/2017 [...] Encounters Date Type Department Care Team Description 08/08/2025 10:35 AM EST Office Visit Pulmonology - [facility] [address] [place] [address] Jelena Hoff NP Chronic obstructive pulmonary disease, unspecified COPD type (CMS/HCC V24, CMS/HCC V28) (Primary Dx); Small cell lung cancer, left lower lobe (CMS/HCC V24, CMS/HCC V28); Seizure disorder (CMS/HCC V24, CMS/HCC V28); 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 (CMS/HCC V24, CMS/HCC V28); Chronic respiratory failure with hypoxia and hypercapnia (CMS/HCC V24, CMS/HCC V28); Overweight (BMI 25.0-29.9) 08/05/2025 10:58 AM EST - 08/05/2025 11:59 PM EST Hospital Encounter [facility] Center [address] [place] [phone] 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 (CMS/HCC V24, CMS/HCC V28) (Primary Dx); Small cell lung cancer, left lower lobe (CMS/HCC V24, CMS/HCC V28); 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 (CMS/HCC V24, CMS/HCC V28) Discharge Disposition: Home or Self Care 08/04/2025 11:30 AM EST Lab Draw Station - [address] [phone] Lung cancer (CMS/HCC V24, CMS/HCC V28) 08/04/2025 Telephone Adult Medicine [address] [phone] Will Monroe MD 07/25/2025 11:25 AM EST Lab Draw Station - [address] Hypercarbia; Small cell lung cancer, left lower lobe (CMS/HCC V24, CMS/HCC V28); 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 (CMS/HCC V24, CMS/HCC V28); 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 (CMS/HCC V24, CMS/HCC V28); COPD with acute exacerbation (CMS/HCC V24, CMS/HCC V28) 07/25/2025 10:30 AM EST Office Visit Adult Medicine [address] [phone] Will Monroe MD Acute on chronic respiratory failure with hypoxia and hypercapnia (CMS/HCC V24, CMS/HCC V28) (Primary Dx); Hypercarbia; Chest pain, unspecified type; Chronic respiratory failure with hypoxia (CMS/HCC V24, CMS/HCC V28); Chronic obstructive pulmonary disease, unspecified COPD type (CMS/HCC V24, CMS/HCC V28); Malignant neoplasm of lung, unspecified laterality, unspecified part of lung ([facility]/HCC V24, [facility]/HCC V28) 07/23/2025 3:30 PM EST Office Visit [facility] Hematology Oncology [address] [place] [phone] Mihaela Barbour MD Small cell lung cancer, left lower lobe ([facility]/HCC V24, [facility]/HCC V28) (Primary Dx); 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 ([facility]/HCC V24, [facility]/HCC V28); Acute on chronic respiratory failure with hypoxia and hypercapnia ([facility] V24, [facility] V28) 07/21/2025 Telephone Adult Medicine [address] [phone] Will Monroe MD 07/21/2025 Telephone Adult Medicine [address] [phone] Will Monroe MD 07/21/2025 Telephone Adult Medicine [address] [phone] Will Monroe MD 07/21/2025 Telephone Pulmonology [facility] [address] [phone] Jelena Hoff NP 07/21/2025 Telephone [facility] Hematology Oncology [address] [place] [phone] Mihaela Barbour MD 07/17/2025 5:38 PM EST - 07/19/2025 12:11 PM EST Hospital Encounter [facility] Intermediate Care Unit B [address] [place] [phone] Guy Guidry MD Mogul, Ashley, MD Jones, Christopher, MD Nasser, Nada S, MD Acute on chronic respiratory failure with hypoxia and hypercapnia ([facility] V24, [facility] V28) (Primary Dx); Hypoxia; COPD exacerbation ([facility] V24, [facility] V28); Acute hypoxic respiratory failure (CMS/HCC V24, CMS/HCC V28); Acute respiratory failure with hypoxia and hypercapnia (CMS/HCC V24, CMS/HCC V28); Anxiety; COPD with acute exacerbation (CMS/HCC V24, CMS/HCC V28) Discharge Disposition: [place] [facility] [place]/16/2025 11:30 AM EST Office Visit Adult Medicine [address] [phone] Olimpia Coreas PA Synovial cyst of left popliteal space (Primary Dx); Vitamin B12 deficiency 07/15/2025 Telephone Adult Medicine [address] [phone] Will Monroe MD 07/14/2025 3:32 PM EST - 07/14/2025 8:00 PM EST Emergency [facility] Emergency [address] [place] [phone] Franchesca Hopper MD Left leg pain (Primary Dx); Santana's cyst of knee, left; Anemia, unspecified type; Hypomagnesemia Discharge Disposition: Home or Self Care 07/14/2025 Nurse Triage [address] [phone] Will Monroe MD 07/08/2025 2:30 PM EST - 07/08/2025 11:59 PM EST Hospital Encounter [facility] Radiation Oncology [address] [place] [phone] Raymond Nash MD Small cell lung cancer, left lower lobe ([facility]/HCC V24, [facility] V28) (Primary Dx); 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 (CMS/HCC V24, CMS/HCC V28) Discharge Disposition: Home or Self Care 07/08/2025 11:30 AM EST - 07/08/2025 11:59 PM EST Hospital Encounter [facility] Infusion Center [address] [place] [phone] 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 (CMS/HCC V24, CMS/[facility] V28) (Primary Dx); Small cell lung cancer, left lower lobe (CMS/HCC V24, CMS/HCC V28); 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 (CMS/HCC V24, CMS/HCC V28) Discharge Disposition: Home or Self Care 07/08/2025 11:15 AM EST Office Visit [facility] Hematology Oncology [address] [place] [phone] Mihaela Barbour MD Small cell lung cancer, left lower lobe (CMS/HCC V24, CMS/HCC V28) (Primary Dx); 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 (CMS/HCC V24, CMS/HCC V28) 07/07/2025 11:20 AM EST Lab Draw Station - [address] [phone] Lung cancer (CMS/HCC V24, CMS/HCC V28) 07/04/2025 4:55 PM EST Lab Draw Station - [address] Hematoma; Small cell lung cancer, left lower lobe (CMS/HCC V24, CMS/HCC V28); 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 (CMS/HCC V24, CMS/HCC V28); 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 (CMS/HCC V24, CMS/HCC V28) 07/04/2025 4:00 PM EST Office Visit Adult Medicine [address] [phone] Will Monroe MD Aspiration pneumonia of right middle lobe, unspecified aspiration pneumonia type (CMS/HCC V24, CMS/HCC V28) (Primary Dx); Ecchymosis; At risk for aspiration; COPD with acute exacerbation (CMS/HCC V24, CMS/HCC V28); Psoriatic arthritis (CMS/HCC V24, CMS/HCC V28); Malignant neoplasm of lung, unspecified laterality, unspecified part of lung (CMS/HCC V24, CMS/HCC V28) 07/04/2025 Telephone Adult Medicine [address] [phone] Will Monroe MD 07/03/2025 1:25 PM EST Office Visit Pulmonology - [facility] [address] [facility] [address] [place] [phone] Jelena Hoff NP Small cell lung cancer, left lower lobe (CMS/HCC V24, CMS/HCC V28) (Primary Dx); COPD with acute exacerbation (CMS/HCC V24, CMS/HCC V28); 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 (CMS/HCC V24, CMS/HCC V28); Former heavy cigarette smoker (20-39 per day); Pulmonary nodule; Exercise hypoxemia; Overweight (BMI 25.0-29.9) 07/03/2025 Telephone Adult Medicine [address] [phone] Wlil Monroe MD 07/03/2025 Telephone Adult Medicine [address] [phone] Lucila Thompson RN 07/02/2025 Telephone Adult Medicine [address] [phone] Shara Grant MA 07/01/2025 [facility] [address] [phone] Erika Turpin RN 06/30/2025 Telephone Adult Medicine [address] [phone] Will Monroe MD 06/24/2025 1:12 PM EST - 06/26/2025 1:58 PM EST Hospital Encounter [facility] Intermediate Care Unit [address] [place] [phone] Fer Nguyen MD Mogul, Ashley, MD Seralathan, Manikandan, MD Nasser, Nada S, MD Hypoxia (Primary Dx); Small cell lung cancer, left lower lobe (CMS/HCC V24, CMS/HCC V28); 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 (CMS/HCC V24, CMS/HCC V28); COPD with acute exacerbation (CMS/HCC V24, CMS/HCC V28) Discharge Disposition: [place] [facility] [place]/24/2025 10:59 AM EST - 06/24/2025 11:59 PM EST Hospital Encounter [address] [phone] 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 (CMS/HCC V24, CMS/HCC V28) (Primary Dx); Small cell lung cancer, left lower lobe (CMS/HCC V24, [facility]/HCC V28); 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 (CMS/HCC V24, [facility]/HCC V28) Discharge Disposition: Home or Self Care 06/24/2025 10:00 AM EST Office Visit [facility] Hematology Oncology [address] [place] [phone] Kayley Lema PA Small cell lung cancer, left lower lobe (CMS/HCC V24, CMS/HCC V28) (Primary Dx); 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 ([facility]/HCC V24, [facility]/HCC V28); SOB (shortness of breath) 06/23/2025 1:10 PM EST Lab Draw Station - [address] [phone] Lung cancer ([facility] V24, [facility] V28) 06/02/2025 Telephone Vascular Surgery [facility] [address] [place] [phone] Krupa Garcia MD 05/30/2025 Telephone Adult Medicine [address] [phone] Will Monroe MD 05/30/2025 Telephone Adult Medicine [address] [phone] Mihaela Barbour MD 05/28/2025 10:26 AM EDT - 05/28/2025 11:59 PM EDT Hospital Encounter [address] [phone] 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 ([facility] V24, [facility] V28) (Primary Dx); Small cell lung cancer, left lower lobe ([facility] V24, [facility] V28); 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 ([facility] V24, [facility] V28) Discharge Disposition: Home or Self Care 05/20/2025 12:29 PM EDT - 05/20/2025 11:59 PM EDT Hospital Encounter [facility] PET Scan [address] [place] [phone] Small cell lung cancer, left lower lobe ([facility] V24, [facility] V28) Discharge Disposition: Home or Self Care 05/13/2025 10:45 AM EDT Office Visit [facility] Hematology Oncology [address] [place] [phone] Mihaela Barbour MD Small cell lung cancer, left lower lobe ([facility] V24, [facility] V28) (Primary Dx); 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 ([facility] V24, [facility] V28) from Last 3 Months Immunizations Immunization Administration Dates Next Due Influenza Quadravalent, MDCK , 0.5ml, preservative free (Flucelvax) 6mo and older 07/24/2018 Influenza trivalent, 0.5mL ( Fluad) 65yo and older 06/08/2023,05/17/2022,06/15/2021,05/23,07/23/2019 Influenza trivalent, with pr eservative (Fluzone; Afluria) 6mo and older 05/23/2020 Influenza, Unspecified 06/04/2021 Ingeny SARS-CoV-2 COVID-19, mRNA, LNP-S, preservative free 12/25/2020 [...] FIXJ IF PRFRMD; COMMENT: s/p pelvic repair, [facility] UPPER GASTROINTESTINAL ENDOSCOPY 10/03/2018 PROCEDURE: UPPER [...] kidney disease) stage 3, GFR 30-59 ml/min ([facility] V24, CMS/[facility] V28) 03/13/2018 DX:CKD (chronic kidney disea se) stage 3, GFR 30-59 ml/min ([facility]) COPD (chronic obstructive pu lmonary disease) ([facility] V24, CMS/[facility] V28) 07/24/2017 DX:COPD (chronic o bstructive pulmonary disease) ([facility]); COMMENT: Chronic bronchitis Depression 07/24/2017 DX:Depression [...] COMMENT: Right, small and nonobstructing Seizure disorder ([facility] V2 4, [facility] V28) 07/24/2017 DX:Seizure disorder ([facility]); C OMMENT: 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 On Dilantin Thrombocytopenia ([facility] V24) 07/24/2017 D X:Thrombocytopenia ([facility]) Vitamin D deficiency 07/24/2017 DX:Vitamin D [...] Record ed Within the last 3 months, sergio nunes many times did you visit the emergency [...] care for your loved ones. For example, children's lunchroom supervisor or elderly care for an older adult? [...] Oxygen Inhaled Oxygen Concentration - - Weight 72.6 kg (160 lb) 07/25/2025 10:3 8 AM EST Height 162.6 cm (5' 4.02 ) 07/25/2025 1 0:38 AM EST Body Mass Index 27.45 07/25/2025 10:38 AM EST Plan of Treatment Upcoming Encounters Date Type Department Care Team (Late st Contact Info) Description 08/19/2025 9:30 AM EST Ancillary Procedure [facility] - [facility] [address] [facility] [address] [place] [phone] 09/02/2025 11:00 AM EST Appointment [facility] Infusion Center [address] [facility] [address] [place] [phone] 09/09/2025 11:15 AM EST Office Visit [facility] Hematology Oncology [address] [place] [phone] Mihaela Barbour MD [address] [place] [address] 10/01/2025 10:10 AM EST Office Visit Pulmonology - [facility] [address] [place] [phone] Jelena Hoff, CARY [address] [place] [phone] 10/14/2025 1:30 PM EST Office Visit Adult Medicine [address] [phone] Will Monroe MD [address] [place] [phone] 03/03/2026 11:00 AM EDT Appointment [facility] Ultrasound [address] [place] [phone] 04/01/2026 11:30 AM EDT Office Visit Vascular Surgery - [facility] [address] [place] [phone] Krupa Garcia MD [address] [place] [phone] Health Maintenance Due Date Last Done Comments Drug Screen 1950 Non-Opioid Controlled Substance Agreement 1950 Zoster Vaccines (1 of 2) 1969 Colorectal Cancer Screening: Stool Based Tests (FOBT/FIT) 07/30/2022 Medicare Annual Wellness Visit 07/30/2022 RSV Immunization Adult Patients (1 - 1-dose 75+ series) 2023 COVID-19 Vaccine ( - 2024- season) 2025 09/08/2021, 12/25/2020, 12/04/2020 Influenza Vaccine (#1) 2025 , 06/08/2023, 05/17/2022, Additional history exists DTaP,Tdap,and Td Vaccines (2 - Td or Tdap) 01/02/2026 01/03/2016 Social Influencers of Health Screening 07/18/2026 07/18/2025 Hypertension/CHF/CAD Annual BMP Blood Test 08/04/2026 08/04/2025, 07/25/2025, 07/19/2025, Additional history exists Falls Risk Assessment 08/05/2026 08/05/2025 Cholesterol Screening (Lipid Panel) 06/08/2028 06/08/2023 Osteoporosis Screening (Bone Density Screening) 09/16/2031 09/16/2021 Pneumococcal Vaccine: 50+ Years Completed 08/28/2019, 08/25/2017 Hepatitis C Screening Completed 05/13/2020 Depression Screening Completed 07/25/2025 HIB Vaccines Aged Out No longer eligi [...] this topic Medical Devices Implanted Type Area Service Desk Lead Device Identifier Shelf Expiration Date Model / Serial / Lot Marker Cobra Superlock - Sn/A - [id number] Implanted:Qt y: 1 on 11/20/2024 by Laura Avalos MD at [facility] Imaging Implants Right: Lung [employer] [id number] 06/26/2028 [id number] / N/A / [id number] Description:RIGHT UPPER LOBE Marker Cobra Superlock - Sn/A - [id number] Implanted:Qt y: 1 on 11/20/2024 by Laura Avalos MD at [facility] Imaging Implants Left: Lung [employer] 08/07/2028 [id number] / N/A / [id number] Description:LEFT LOWER LOBE Procedures Procedure Name Priority Date/Time Associated Diagnosis Comments THYROID STIMULATING HORMONE Routine 08/05/2025 11:38 AM EST Small cell lung cancer, left lower lobe (CMS/HCC V24, CMS/HCC V28) 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 (CMS/HCC V24, CMS/HCC V28) 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 (CMS/HCC V24, CMS/HCC V28) CBC WITH AUTO DIFFERENTIAL Routine 08/04/2025 11:30 AM EST Lung cancer (CMS/HCC V24, CMS/HCC V28) COMPREHENSIVE METABOLIC PANEL Routine 08/04/2025 11:30 AM EST Lung cancer (CMS/HCC V24, CMS/HCC V28) CBC AND DIFFERENTIAL Routine 08/04/2025 11:30 AM EST Lung cancer (CMS/HCC V24, CMS/HCC V28) CBC WITH AUTO DIFFERENTIAL Routine 07/25/2025 11:31 AM EST Small cell lung cancer, left lower lobe (CMS/HCC V24, CMS/HCC V28) 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 (CMS/HCC V24, CMS/HCC V28) 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 (CMS/HCC V24, CMS/HCC V28) CBC AND DIFFERENTIAL Routine 07/25/2025 11:31 AM EST Small cell lung cancer, left lower lobe (CMS/HCC V24, CMS/HCC V28) 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 (CMS/HCC V24, CMS/HCC V28) 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 (CMS/HCC V24, CMS/HCC V28) COMPREHENSIVE METABOLIC PANEL Routine 07/25/2025 11:31 AM EST Small cell lung cancer, left lower lobe (CMS/HCC V24, CMS/HCC V28) 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 (CMS/HCC V24, CMS/HCC V28) 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 (CMS/HCC V24, CMS/HCC V28) HOME O2 EVAL (DESATURATION SCREEN) Routine 07/19/2025 8:59 AM EST CBC WITH AUTO DIFFERENTIAL Routine 07/19/2025 5:40 AM EST VENOUS BLOOD GAS Routine 07/19/2025 5:40 AM EST C-REACTIVE PROTEIN Routine 07/19/2025 5: 40 AM EST PROTHROMBIN TIME WITH INR Routine 07/19/2025 5:40 AM EST COMPREHENSIVE METABOLIC PANEL Routine 07/19/2025 5:40 AM EST PHOSPHORUS Routine 07/19/2025 5:40 AM EST MAGNESIUM Routine 07/19/2025 5:40 AM EST CBC AND DIFFERENTIAL Routine 07/19/2025 5:40 AM EST CULTURE SPUTUM STAT 07/18/2025 9:24 PM EST POCT GLUCOSE BLOOD Routine 07/18/2025 4: 35 PM EST LAVENDER - EDTA Routine 07/18/2025 2:32 PM EST EXTRA TUBES Routine 07/18/2025 2:32 PM EST D-DIMER STAT 07/18/2025 2:32 PM EST VENOUS BLOOD GAS STAT 07/18/2025 2:32 PM EST TROPONIN I HIGH SENSITIVITY Routine 07/18/2025 2:32 PM EST C-REACTIVE PROTEIN Routine 07/18/2025 2: 32 PM EST PHENYTOIN LEVEL, FREE Timed 07/18/2025 2:32 PM EST PHENYTOIN LEVEL, TOTAL Timed 2:32 PM EST OXYGEN THERAPY, ADULT Routine 07/18/2025 2:08 PM EST OXYGEN THERAPY, ADULT Routine 07/18/2025 2:08 PM EST OXYGEN THERAPY, ADULT Routine 07/18/2025 2:08 PM EST POCT GLUCOSE BLOOD Routine 07/18/2025 11 :23 AM EST POCT GLUCOSE BLOOD Routine 07/18/2025 7: 36 AM EST THYROID STIMULATING HORMONE Add-On 07/18/2025 6:46 AM EST IRON AND TIBC Add-On 07/18/2025 6:46 AM EST VITAMIN B12 Add-On 07/18/2025 6:46 AM EST C-REACTIVE PROTEIN Add-On 07/18/2025 6: 46 AM EST CBC WITH AUTO DIFFERENTIAL Routine 07/18/2025 6:46 AM EST VENOUS BLOOD GAS Routine 07/18/2025 6:46 AM EST CBC AND DIFFERENTIAL Routine 07/18/2025 6:46 AM EST BASIC METABOLIC PANEL Routine 07/18/2025 6:46 AM EST ECG ANNOTATED 07/18/2025 VENOUS BLOOD GAS STAT 07/17/2025 11:[address] ANGIO CHEST WO AND/OR W CONTRAST STAT 07/17/2025 8:10 PM EST Hypoxia RESPIRATORY VIRUS PANEL MOLECULAR STUDY STAT 07/17/2025 6:20 PM EST MRSA PCR STAT 07/17/2025 6:20 PM EST XR CHEST 1 VIEW STAT 07/17/2025 6:16 PM EST ECG 12-LEAD STAT 07/17/2025 6:14 PM EST OXYGEN THERAPY, ADULT Routine 07/17/2025 6:11 PM EST OXYGEN THERAPY, ADULT Routine 07/17/2025 6:11 PM EST OXYGEN THERAPY, ADULT Routine 07/17/2025 6:11 PM EST VENOUS BLOOD GAS STAT 07/17/2025 6:06 PM EST CULTURE BLOOD STAT 07/17/2025 6:06 PM EST C-REACTIVE PROTEIN Add-On 07/17/2025 5: 51 PM EST PROCALCITONIN Add-On 07/17/2025 5:51 PM EST CBC WITH AUTO DIFFERENTIAL STAT 07/17/2025 5:51 PM EST CBC AND DIFFERENTIAL STAT 07/17/2025 5:51 PM EST ACTIVATED PARTIAL THROMBOPLASTIN TIME STAT 07/17/2025 5:51 PM EST PROTHROMBIN TIME WITH INR STAT 07/17/2025 5:51 PM EST TROPONIN I HIGH SENSITIVITY STAT 07/17/2025 5:51 PM EST MAGNESIUM STAT 07/17/2025 5:51 PM EST LIPASE STAT 07/17/2025 5:51 PM EST LACTATE, WITH REFLEX STAT 07/17/2025 5:51 PM EST B-TYPE NATRIURETIC PEPTIDE STAT 07/17/2025 5:51 PM EST COMPREHENSIVE METABOLIC PANEL STAT 07/17/2025 5:51 PM EST CULTURE BLOOD STAT 07/17/2025 5:51 PM EST [place] CRITICAL CARE 30-74 MINUTES Routine 07/17/2025 5:35 PM EST VAS US DUPLEX LOWER EXT VENOUS LEFT STAT 07/14/2025 6:38 PM EST Left leg pain CREATINE KINASE STAT 07/14/2025 4:13 PM EST BASIC METABOLIC PANEL STAT 07/14/2025 4:13 PM EST MAGNESIUM STAT 07/14/2025 4:13 PM EST D-DIMER STAT 07/14/2025 4:13 PM EST COMPLETE BLOOD COUNT STAT 07/14/2025 4:13 PM EST THYROID STIMULATING HORMONE Routine 07/08/2025 12:47 PM EST Small cell lung cancer, left lower lobe (CMS/HCC V24, CMS/HCC V28) 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 (CMS/HCC V24, CMS/HCC V28) 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 (CMS/HCC V24, CMS/HCC V28) CBC WITH AUTO DIFFERENTIAL Routine 07/07/2025 11:19 AM EST Lung cancer (CMS/HCC V24, CMS/HCC V28) COMPREHENSIVE METABOLIC PANEL Routine 07/07/2025 11:19 AM EST Lung cancer (CMS/HCC V24, CMS/HCC V28) CBC AND DIFFERENTIAL Routine 07/07/2025 11:19 AM EST Lung cancer (CMS/HCC V24, CMS/HCC V28) CBC WITH AUTO DIFFERENTIAL Routine 07/04/2025 4:56 PM EST Hematoma COMPREHENSIVE METABOLIC PANEL Routine 07/04/2025 4:56 PM EST Small cell lung cancer, left lower lobe (CMS/HCC V24, CMS/HCC V28) 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 (CMS/HCC V24, CMS/HCC V28) 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 (CMS/HCC V24, CMS/HCC V28) CBC AND DIFFERENTIAL Routine 07/04/2025 4:56 PM EST Hematoma CBC WITH AUTO DIFFERENTIAL Routine 06/26/2025 5:35 AM EST PHOSPHORUS Routine 06/26/2025 5:35 AM EST MAGNESIUM Routine 06/26/2025 5:35 AM EST BASIC METABOLIC PANEL Routine 06/26/2025 5:35 AM EST CBC AND DIFFERENTIAL Routine 06/26/2025 5:35 AM EST PEP THERAPY Routine 06/25/2025 7:16 AM EST BASIC METABOLIC PANEL Routine 06/25/2025 4:13 AM EST VITAMIN B12 AND FOLATE Routine 4:13 AM EST MANUAL DIFFERENTIAL - SYSMEX [...] AM EST Encounter for screening for osteoporosis HM HEPATITIS C SCREENING Routine 05/13/2020 from Last 3 Months or Most Recently Relevant to Health Maintenance Results * (ABNORMAL) Thyroid stimulating hormone (08/05/2025 11:38 AM EST) Only the most recent of4 resultswithin the time period is included. TSH 15.93(H) 0.40 - 4.00 mcIU/mL 08/05/2025 2:12 PM EST [facility] Blood Venous blood specimen / Unknown Venipuncture / Unknown 08/05/2025 11:38 AM EST 08/05/2025 12:23 PM EST Mihaela Barbour MD LAB BLOOD ORDERABLES Final R esult [facility] [address] [place] [address], * (ABNORMAL) CBC auto differential (08/04/2025 11:30 AM EST) Only the most recent of12 resultswithin the time period is included. WBC 5.5 4.8 - 10.8 K/[facility] HEMETOLOGY METHOD 08/04/2025 12:06 PM EST [facility] RBC 3.50(L) 3.80 - 4.80 M/[facility] LAB HEMETOLOGY METHOD 08/04/2025 12:06 PM EST [facility] Hemoglobin 11.4(L) 11.5 - 16.0 g/dL LAB HEMETOLOGY METHOD 08/04/2025 12:06 PM [facility] Hematocrit 35.9 35.0 - 47.0 % LAB HEMETOLOGY METHOD 08/04/2025 12:06 PM [facility] MCV 102.6(H) 79.0 - 98.0 FL LAB HEMETOLOGY METHOD 08/04/2025 12:06 PM [facility] MCH 32.6(H) 27.0 - 32.0 pcg LAB HEMETOLOGY METHOD 08/04/2025 12:06 PM [facility] MCHC 31.8(L) 32.0 - 37.0 g/dL LAB HEMETOLOGY METHOD 08/04/2025 12:06 PM [facility] RDW 12.5 11.0 - 15.0 % LAB HEMETOLOGY METHOD 08/04/2025 12:06 PM [facility] Platelets 127(L) 130 - 400 K/mcL LAB HEMETOLOGY METHOD 08/04/2025 12:06 PM [facility] MPV 10.6 7.0 - 11.0 FL LAB HEMETOLOGY METHOD 08/04/2025 12:06 PM [facility] NRBC 0.0 <1.0 % LAB HEMETOLOGY METHOD 08/04/2025 12:06 PM [facility] NRBC Absolute 0.00 <0.10 K/mcL LAB HEMETOLOGY METHOD 08/04/2025 12:06 PM [facility] Neutrophils Relative 74.8 % LAB HEMETOLOGY METHOD 08/04/2025 12:06 PM [facility] Lymphocytes Relative 12.2 % LAB HEMETOLOGY METHOD 08/04/2025 12:06 PM [facility] Monocytes Relative 8.7 % LAB HEMETOLOGY METHOD 08/04/2025 12:06 PM [facility] Eosinophils Relative 3.4 % LAB HEMETOLOGY METHOD 08/04/2025 12:06 PM [facility] Basophils Relative 0.5 % LAB HEMETOLOGY METHOD 08/04/2025 12:06 PM [facility] Immature Granulocytes Relative 0.4 % LAB HEMETOLOGY METHOD 08/04/2025 12:06 PM [facility] Neutrophils Absolute 4.12 1.50 - 7.00 K/mcL LAB HEMETOLOGY METHOD 08/04/2025 12:06 PM [facility] Lymphocytes Absolute 0.67(L) 1.00 - 5.00 K/mcL LAB HEMETOLOGY METHOD 08/04/2025 12:06 PM [facility] Monocytes Absolute 0.48 0.20 - 1.00 K/mcL LAB HEMETOLOGY METHOD 08/04/2025 12:06 PM [facility] Eosinophils Absolute 0.19 0.00 - 0.50 K/mcL LAB HEMETOLOGY METHOD 08/04/2025 12:06 PM [facility] Basophils Absolute 0.03 0.00 - 0.20 K/mcL LAB HEMETOLOGY METHOD 08/04/2025 12:06 PM [facility] Immature Granulocytes Absolute 0.02 0.00 - 0.03 K/mcL LAB HEMETOLOGY METHOD 08/04/2025 12:06 PM [facility] Blood Venous blood specimen / Unknown Venipuncture / Unknown 08/04/2025 11:30 AM EST 08/04/2025 11:41 AM EST Mihaela Barbour MD LAB BLOOD ORDERABLES Final R esult [facility] [address] [place] [address], * (ABNORMAL) Comprehensive metabolic panel (08/04/2025 11:30 AM EST) Only the most recent of8 resultswithin the time period is included. Sodium 140 133 - 145 mmol/L 08/04/2025 12:45 PM [facility] Potassium 4.7 3.5 - 5.5 mmol/L 08/04/2025 12:45 PM [facility] Chloride 100 96 - 110 mmol/L 08/04/2025 12:45 PM [facility] CO2 34(H) 21 - 32 mmol/L 08/04/2025 12:45 PM [facility] Anion Gap 6 3 - 11 08/04/2025 12:45 PM [facility] Glucose 102(H) 70 - 100 mg/dL 08/04/2025 12:45 PM [facility] BUN 14 5 - 25 mg/dL 08/04/2025 12:45 PM [facility] Creatinine 0.85 0.50 - 1.10 mg/dL 08/04/2025 12:45 PM [facility] eGFR 71 >=60 mL/min/1. 73m2 08/04/2025 12:45 PM [facility] Comment:Calculation based on the Chronic Kidney Disease Epidemiology Collaboration (CKD-EPI) equation refit without adjustment for race. BUN/Creatinine Ratio 16.5 08/04/2025 12:45 PM [facility] Calcium 8.4(L) 8.5 - 10.5 mg/dL 08/04/2025 12:45 PM [facility] AST (SGOT) 15 10 - 42 unit/L 08/04/2025 12:45 PM [facility] ALT (SGPT) 15 10 - 60 unit/L 08/04/2025 12:45 PM [facility] Alkaline Phosphatase 112 42 - 121 unit/L 08/04/2025 12:45 PM [facility] Total Protein 6.4 6.0 - 8.0 g/dL 08/04/2025 12:45 PM [facility] Albumin 3.7 3.2 - 5.0 g/dL 08/04/2025 12:45 PM [facility] Total Bilirubin 0.2 0.0 - 1.4 mg/dL 08/04/2025 12:45 PM [facility] Blood Venous blood specimen / Unknown Venipuncture / Unknown 08/04/2025 11:30 AM EST 08/04/2025 11:47 AM EST Mihaela Barbour MD LAB BLOOD ORDERABLES Final R esult Performing Organization Address City/[facility]/ZIP Co de Phone Number [facility] [address] [place] [address], [place] [phone] * Prothrombin time with INR (07/19/2025 5:40 AM EST) Only the most recent of2 resultswithin the time period is included. Protime 11.9 10.6 - 13.9 sec LAB COAGULATION METHOD 07/19/2025 6:06 AM [facility] INR 1.0 LAB COAGULATION METHOD 07/19/2025 6:06 AM [facility] Blood Venous blood specimen / Unknown Venipuncture / Unknown 07/19/2025 5:40 AM EST 07/19/2025 5:45 AM EST Mikey Jamison MD LAB BLOOD ORDERABLES Final Resu lt [facility] [address] [place] [address], [place] [phone] * C-reactive protein (07/19/2025 5:40 AM EST) Only the most recent of4 resultswithin the time period is included. C-Reactive Protein <0.50 <=0.50 mg/dL 07/19/2025 7:07 AM EST [facility] Blood Venous blood specimen / Unknown Venipuncture / Unknown 07/19/2025 5:40 AM EST 07/19/2025 5:45 AM EST us Mikey Jamison MD LAB BLOOD ORDERABLES Final Resu lt Performing Organization Address City/[facility]/ZIP Co de Phone Number [facility] [address] [place] [address], [place] [phone] * (ABNORMAL) Phosphorus (07/19/2025 5:40 AM EST) Only the most recent of2 resultswithin the time period is included. Phosphorus 2.3(L) 2.5 - 4.5 mg/dL 07/19/2025 9:11 AM EST [facility] Blood Venous blood specimen / Unknown Venipuncture / Unknown 07/19/2025 5:40 AM EST 07/19/2025 5:45 AM EST us Mikey Jamison MD LAB BLOOD ORDERABLES Final Resu lt Performing Organization Address City/[facility]/ZIP Co de Phone Number [facility] [address] [place] [address], [place] [phone] * Magnesium (07/19/2025 5:40 AM EST) Only the most recent of4 resultswithin the time period is included. Magnesium 1.9 1.9 - 2.6 mg/dL 07/19/2025 6:37 AM EST [facility] Blood Venous blood specimen / Unknown Venipuncture / Unknown 07/19/2025 5:40 AM EST 07/19/2025 5:45 AM EST us Mikey Jamison MD LAB BLOOD ORDERABLES Final Resu lt [facility] [address] [place] [address], [place] [phone] * (ABNORMAL) Venous blood gas (07/19/2025 5:40 AM EST) Only the most recent of5 resultswithin the time period is included. pH, Cameron 7.33 7.32 - 7.42 pH 07/19/2025 3:36 PM EST [facility] pCO2, Cameron 72(HH) 41 - 51 mmHg 07/19/2025 3:36 PM EST [facility] pO2, Cameron 35 25 - 40 mmHg 07/19/2025 3:36 PM EST [facility] HCO3, Venous 31.8(H) 22.0 - 26.0 mmol/L 07/19/2025 3:36 PM EST [facility] O2 Sat, Cameron 63.3 % 07/19/2025 3:36 PM EST [facility] Base Excess, Cameron 9.8(H) -2.0 - 2.0 mmol/L 07/19/2025 3:36 PM EST [facility] Blood Venous blood specimen / Unknown Venipuncture / Unknown 07/19/2025 5:40 AM EST 07/19/2025 5:45 AM EST Narrative [facility] - 07/19/2025 3:36 PM EST Delay in reporting result. Patient went home us Mikey Jamison MD LAB BLOOD ORDERABLES Final Resu lt [facility] [address] [place] [address], [place] [phone] * (ABNORMAL) Culture sputum (07/18/2025 9:24 PM EST) Pathologist [facility] [place] Culture, Sputum Specimen rejected due to excessive oral contamination, Please Recollect. 07/18/2025 11:02 PM EST [facility] Gram Stain Result 10-25/LPF Polymorphonuclear leukocytes(A) 07/18/2025 11:02 PM [facility] Gram Stain Result >25/LPF Epithelial cells(A) 07/18/2025 11:02 PM [facility] Gram Stain Result Moderate Yeast(A) 07/18/2025 11:02 PM [facility] Gram Stain Result Few Gram positive bacilli(A) 07/18/2025 11:02 PM [facility] Gram Stain Result Rare Gram positive cocci in pairs(A) 07/18/2025 11:02 PM [facility] Gram Stain Result Inadequate specimen, greater than or equal to 25 squamous epithelial cells per low power field.(A) 07/18/2025 11:02 PM [facility] Sputum, expectorated Oropharyngeal structure / Unknown Non-blood Collection / Unknown 07/18/2025 9:24 PM EST 07/18/2025 10:23 PM EST Mikey Jamison MD LAB MICROBIOLOGY - GENERAL TIFFANIE MUÑOZ Final Result [facility] [address] [place] [address], * (ABNORMAL) POCT Glucose, blood (07/18/2025 4:35 PM EST) Only the most recent of3 resultswithin the time period is included. [facility] Glucose POCT 148(H) 70 - 100 mg/dL 07/18/2025 4:35 PM [facility] Blood Capillary blood specimen / Unknown 07/18/2025 4:35 PM EST 07/18/2025 4:36 PM EST us Mikey Jamison MD LAB POINT OF CARE TE ST DOCKED DEVICE UNSOLICITED RESULTS Final Result Performing Organization Address [facility] Co de Phone Number [facility] [address] [place] [address], [place] [phone] * Troponin I high sensitivity (07/18/2025 2:32 PM EST) Only the most recent of3 resultswithin the time period is included. [facility] High Sensitivity Troponin I 5 <=34 ng/L 07/18/2025 3:25 PM EST [facility] Blood Venous blood specimen / Unknown Venipuncture / Unknown 07/18/2025 2:32 PM EST 07/18/2025 2:39 PM EST us Mikey Jamison MD LAB BLOOD ORDERABLES Final Resu lt Performing Organization Address [facility] Co de Phone Number [facility] [address] [place] [address], [place] [phone] * Lavender tube (07/18/2025 2:32 PM EST) [facility] Extra Tube Hold for add-ons. 07/18/2025 4:01 PM EST [facility] Comment:Auto resulted. Blood Venous blood specimen / Unknown 07/18/2025 2:32 PM EST 07/18/2025 2:39 PM EST us Mikey Jamison MD LAB BLOOD ORDERABLES Final Resu lt Performing Organization Address [facility] Co de Phone Number [facility] [address] [place] [address], [place] [phone] * (ABNORMAL) D-Dimer (07/18/2025 2:32 PM EST) Only the most recent of2 resultswithin the time period is included. [facility] D-Dimer, Quant (D-DU) 395(H) <=230 ng/mL DDU LAB COAGULATION METHOD 07/18/2025 3:03 PM EST [facility] Blood Venous blood specimen / Unknown Venipuncture / Unknown 07/18/2025 2:32 PM EST 07/18/2025 2:38 PM EST Narrative [facility] - 07/18/2025 3:03 PM EST D-Dimer <230 ng/mL (D-Dimer units) is the threshold for exclusion of DVT/PE. D-Dimer may be elevated in: Critically ill, severely infected, trauma patients, DIC, acute CVA, acute DE, unstable angina, AF, old age, , and smoking. D-Dimer may be decreased with: Initiation of heparin therapy and oral anticoagulants. Mikey Jamison MD LAB BLOOD ORDERABLES Final Resu lt [facility] [address] [place] [address], * (ABNORMAL) Phenytoin level free (07/18/2025 2:32 PM EST) Pathologist [facility] [place] Phenytoin, Free (Dilantin) <0.8(L) 0.8 - 2.0 ug/mL 07/21/2025 1:02 PM EST [facility] Comment: Phenytoin free toxic level: >3.0 ug/mL If applicable, any drug confirmation testing reported here was developed and the performance characteristics determined by [facility]. This confirmation testing has not been cleared or approved by the FDA. The laboratory is regulated under CLIA as qualified to perform high-complexity testing. This test is used for patient testing purposes. It should not be regarded as investigational or for research. Test performed at [facility], [address], [place] [address] Wendi Bradshaw MD, PhD - Track Repair Supervisor Blood Venous blood specimen / Unknown Venipuncture / Unknown 07/18/2025 2:32 PM EST 07/18/2025 2:38 PM EST us Mikey Jamison MD LAB BLOOD ORDERABLES Final Resu lt [facility] [address] [address] * (ABNORMAL) Phenytoin level total (07/18/2025 2:32 PM EST) Phenytoin Level 3.2(L) 10.0 - 20.0 mcg/mL 07/18/2025 3:25 PM EST [facility] Blood Venous blood specimen / Unknown Venipuncture / Unknown 07/18/2025 2:32 PM EST 07/18/2025 2:38 PM EST us Mikey Jamison MD LAB BLOOD ORDERABLES Final Resu lt Performing Organization Address [facility]/ZIP Co de Phone Number [facility] [address] [place] [address], [place] [phone] * Iron and TIBC (07/18/2025 6:46 AM EST) Iron 79 40 - 150 mcg/dL 07/18/2025 2:33 PM EST [facility] TIBC 262 250 - 450 mcg/dL 07/18/2025 2:33 PM EST [facility] Iron Saturation 30 15 - 50 % 2:33 PM EST [facility] Blood Venous blood specimen / Unknown Venipuncture / Unknown 07/18/2025 6:46 AM EST 07/18/2025 6:50 AM EST us Mikey Jamison MD LAB BLOOD ORDERABLES Final Resu lt Performing Organization Address City/[facility]/ZIP Co de Phone Number [facility] [address] [place] [address], [place] [phone] * Vitamin B12 (07/18/2025 6:46 AM EST) Vitamin B-12 219 211 - 911 pcg/mL 07/18/2025 2:31 PM [facility] Blood Venous blood specimen / Unknown Venipuncture / Unknown 07/18/2025 6:46 AM EST 07/18/2025 6:50 AM EST us Mikey Jamison MD LAB BLOOD ORDERABLES Final Resu lt [facility] [address] [place] [address], * (ABNORMAL) Basic metabolic panel (07/18/2025 6:46 AM EST) Only the most recent of5 resultswithin the time period is included. Pathologist [facility] [place] Sodium 141 133 - 145 mmol/L 07/18/2025 7:47 AM [facility] Potassium 5.5 3.5 - 5.5 mmol/L 07/18/2025 7:47 AM [facility] Chloride 101 96 - 110 mmol/L 07/18/2025 7:47 AM [facility] CO2 34(H) 21 - 32 mmol/L 07/18/2025 7:47 AM [facility] Anion Gap 6 3 - 11 07/18/2025 7:47 AM [facility] Glucose 108(H) 70 - 100 mg/dL 07/18/2025 7:47 AM [facility] BUN 14 5 - 25 mg/dL 07/18/2025 7:47 AM [facility] Creatinine 0.90 0.50 - 1.10 mg/dL 07/18/2025 7:47 AM [facility] eGFR 66 >=60 mL/min/1. 73m2 07/18/2025 7:47 AM EST [facility] Comment:Calculation based on the Chronic Kidney Disease Epidemiology Collaboration (CKD-EPI) equation refit without adjustment for race. BUN/Creatinine Ratio 15.6 07/18/2025 7:47 AM EST [facility] Calcium 8.4(L) 8.5 - 10.5 mg/dL 07/18/2025 7:47 AM EST [facility] Blood Venous blood specimen / Unknown Venipuncture / Unknown 07/18/2025 6:46 AM EST 07/18/2025 6:50 AM EST Ko Motta MD LAB BLOOD ORDERABLES Final Result [facility] [address] [place] [address], [place] [phone] * ECG-Annotated (07/18/2025) Only the most recent of2 resultswithin the time period is included. us Provider Onbase ECG ORDERABLES Final Result * CT Angio Chest wo and/or w Contrast (07/17/2025 8:10 PM EST) Only the most recent of2 resultswithin the time period is included. Anatomical Region Laterality Modality Body Computed Tomogra phy 07/17/2025 9:10 PM EST Impressions 07/17/2025 9:10 PM EST 1. No acute intrathoracic findings. No pulmonary embolus. 2. Severe emphysema with diffuse bronchial wall thickening, likely chronic bronchitis. 3. 9 x 5 mm left lower lobe nodule, previously 9 x 6 mm. This document has been electronically signed by: Mina Palomo MD on 07/17/2025 21:10:47 Narrative 07/17/2025 9:10 PM EST INDICATION: hypoxia CT angiography chest with contrast. 3D Postprocessing. Comparison: CR - XR CHEST 1 VW - 07/17/25 18:05 [address] CT - CT ANGIO CHEST WO AND OR W CONTRAST - 06/24/25 18:05 EST Findings: The heart size is normal. RV/LV ratio is normal. Aortic atherosclerosis. No aneurysm. No pulmonary artery filling defects. The visualized thyroid and mediastinum are unremarkable. Severe emphysema. Subsegmental atelectasis in the right middle lobe lingula. Diffuse bronchial wall thickening likely chronic bronchitis. Subpleural left lower lobe nodule measures 9 x 5 mm (previously 9 x 6 mm). No new nodules. No consolidation, pleural effusion or pneumothorax. The visualized upper abdomen is unremarkable. 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 Degenerative changes of the spine. Procedure Note Mina Palomo MD - 07/17/2025 INDICATION: hypoxia CT angiography chest with contrast. 3D Postprocessing. Comparison: CR - XR CHEST 1 VW - 07/17/25 18:05 [address] CT - CT ANGIO CHEST WO AND OR W CONTRAST - 06/24/25 18:05 EST Findings: The heart size is normal. RV/LV ratio is normal. Aortic atherosclerosis. No aneurysm. No pulmonary artery filling defects. The visualized thyroid and mediastinum are unremarkable. Severe emphysema. Subsegmental atelectasis in the right middle lobe lingula. Diffuse bronchial wall thickening likely chronic bronchitis. Subpleural left lower lobe nodule measures 9 x 5 mm (previously 9 x 6mm). No new nodules. No consolidation, pleural effusion or pneumothorax. The visualized upper abdomen is unremarkable. 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 Degenerative changes of the spine. IMPRESSION: 1. No acute intrathoracic findings. No pulmonary embolus. 2. Severe emphysema with diffuse bronchial wall thickening, likelychronic bronchitis. 3. 9 x 5 mm left lower lobe nodule, previously 9 x 6 mm. This document has been electronically signed by: Mina Palomo MD on 07/17/2025 21:10:47 Guy Guidry MD [facility] CT PROCEDURES Final Result * Respiratory virus panel molecular study (07/17/2025 6:20 PM EST) Only the most recent of2 resultswithin the time period is included. Pathologist [facility], [place] Adenovirus Detection by PCR Not Detected Not Detected LAB MICROBIOLOGY METHOD 07/17/2025 7:24 PM EST [facility] Influenza A PCR Not Detected Not Detected LAB MICROBIOLOGY METHOD 07/17/2025 7:24 PM [facility] Influenza B PCR Not Detected Not Detected LAB MICROBIOLOGY METHOD 07/17/2025 7:24 PM [facility] Coronavirus 229E Not Detected Not Detected LAB MICROBIOLOGY METHOD 07/17/2025 7:24 PM [facility] Coronavirus HKU1 Not Detected Not Detected LAB MICROBIOLOGY METHOD 07/17/2025 7:24 PM [facility] Coronavirus OC43 Not Detected Not Detected LAB MICROBIOLOGY METHOD 07/17/2025 7:24 PM [facility] Coronavirus NL63 Not Detected Not Detected LAB MICROBIOLOGY METHOD 07/17/2025 7:24 PM [facility] Parainfluenza Virus 1 Not Detected Not Detected LAB MICROBIOLOGY METHOD 07/17/2025 7:24 PM [facility] Parainfluenza Virus 2 Not Detected Not Detected LAB MICROBIOLOGY METHOD 07/17/2025 7:24 PM [facility] Parainfluenza Virus 3 Not Detected Not Detected LAB MICROBIOLOGY METHOD 07/17/2025 7:24 PM [facility] Parainfluenza Virus 4 Not Detected Not Detected LAB MICROBIOLOGY METHOD 07/17/2025 7:24 PM [facility] RSV PCR Not Detected Not Detected LAB MICROBIOLOGY METHOD 07/17/2025 7:24 PM [facility] Human Metapneumovirus A and B Not Detected Not Detected LAB MICROBIOLOGY METHOD 07/17/2025 7:24 PM [facility] Rhinovirus/Entero virus Not Detected Not Detected LAB MICROBIOLOGY METHOD 07/17/2025 7:24 PM [facility] Bordetella pertussis Not Detected Not Detected LAB MICROBIOLOGY METHOD 07/17/2025 7:24 PM [facility] Bordetella parapertussis Not Detected Not Detected LAB MICROBIOLOGY METHOD 07/17/2025 7:24 PM [facility] Mycoplasma pneumo by PCR Not Detected Not Detected LAB MICROBIOLOGY METHOD 07/17/2025 7:24 PM EST [facility] Chlamydia pneumoniae Not Detected Not Detected LAB MICROBIOLOGY METHOD 07/17/2025 7:24 PM EST [facility] SARS COV-2 Not Detected Not Detected LAB MICROBIOLOGY METHOD 07/17/2025 7:24 PM EST [facility] Swab Both anterior nares / Unknown Non-blood Collection / Unknown 07/17/2025 6:20 PM EST 07/17/2025 6:33 PM EST Narrative [facility] - 07/17/2025 7:24 PM EST Testing was performed using the [employer] Respiratory Pathogen PCR Assay. All results must [...] are below the limit of detection. us Guy Guidry MD LAB MICROBIOLOGY - GENERAL ORDER KOMAL Final Result [facility] [address] [place] [address], [place] [phone] * MRSA molecular study (07/17/2025 6:20 PM EST) Pathologist [facility] [place] MRSA Screen PCR Not Detected Not Detected LAB MICROBIOLOGY METHOD 07/17/2025 7:48 PM EST [facility] Swab Both anterior nares / Unknown Non-blood Collection / Unknown 07/17/2025 6:20 PM EST 07/17/2025 6:33 PM EST us Guy Guidry MD LAB MICROBIOLOGY - GENERAL ORDER KOMAL Final Result [facility] [address] [place] [address], [place] [phone] * XR Chest 1 View (07/17/2025 6:16 PM EST) Anatomical Region Laterality Modality Body Radiographic Mireya ging 07/18/2025 8:18 AM EST Impressions 07/18/2025 8:23 AM EST Impression: No acute process identified in the chest. Telerad PA ([id number]) -------- FINAL REPORT -------- Dictated By: Hodan Jimenez Dictated Date: 07/18/2025 08:18 ET Assigned Physician: Hodan Jimenez Reviewed and Electronically Signed By: Hodan Jimenez Signed Date: 07/18/2025 08:23 ET Workstation ID: [id number] Transcribed By: Self Edit Transcribed Date: 07/18/2025 08:18 ET Narrative 07/18/2025 8:23 AM EST History: Dyspnea. Personal history of lung carcinoma. Comparison: 01/02/25, 11/25/24, thoracic CT 04/15/25 Findings: Portable AP upright chest at 6:08 PM. The cardiac silhouette remains normal in size. The kellie are not enlarged. Fiducial markers are seen bilaterally, one projecting over the right hilum and another in the periphery of the left lung, known to line in proximity to a peripheral left lower lobe nodule. The lungs are mildly hyperinflated. The vascular markings are attenuated in the upper lobes, consistent with underlying emphysema, with CT correlation. No acute infiltrates are seen. The costophrenic angles are sharp. Procedure Note Hodan Jimenez MD - 07/18/2025 History: Dyspnea. Personal history of lung carcinoma. Comparison: 01/02/25, 11/25/24, thoracic CT 04/15/25 Findings: Portable AP upright chest at 6:08 PM. The cardiac silhouette remainsnormal in size. The kellie are not enlarged. Fiducial markers are seenbilaterally, one projecting over the right hilum and another in theperiphery of the left lung, known to line in proximity to a peripheralleft lower lobe nodule. The lungs are mildly hyperinflated. The vascularmarkings are attenuated in the upper lobes, consistent with underlyingemphysema, with CT correlation. No acute infiltrates are seen. Thecostophrenic angles are sharp. IMPRESSION: Impression: No acute process identified in the chest. Telerad SALINA ([id number]) -------- FINAL REPORT -------- Dictated By: Hodan Jimenez Dictated Date: 07/18/2025 08:18 ET Assigned Physician: Hodan Jimenez Reviewed and Electronically Signed By: Hodan Jimenez Signed Date: 07/18/2025 08:23 ET Workstation ID: [id number] Transcribed By: Self Edit Transcribed Date: 07/18/2025 08:18 ET us Ko Motta MD IMG XR PROCEDURES Final Res ult * 12-Lead ECG (07/17/2025 6:14 PM EST) Only the most recent of2 resultswithin the time period is included. Ventricular Rate ECG 95 BPM GEMUSE Atrial Rate 95 BPM GEMUSE P-R Interval 168 ms GEMUSE QRS Duration 64 ms GEMUSE Q-T Interval 318 ms GEMUSE QTc 399 ms GEMUSE P Wave [place] 57 degrees GEMUSE R [place] 55 degrees GEMUSE T [place] 67 degrees GEMUSE ECG Interpretation Normal sinus rhythm Septal infarct (cited on or before 13-NOV-2024) When compared with ECG of 24-JUN-2025 18:51, No significant change was found Confirmed by CHRISTIANA DESIR ([id number]) on 07/18/2025 12:26:43 AM GEMUSE 07/17/2025 6:14 PM EST 07/18/2025 12:26 AM EST us Guy Guidry MD ECG ORDERABLES Final Result GEMUSE * Blood Culture, Peripheral #2 (07/17/2025 6:06 PM EST) Only the most recent of4 resultswithin the time period is included. Culture, Blood No growth at 5 days LAB MICROBIOLOGY METHOD 07/22/2025 7:01 PM EST [facility] Blood Venous blood specimen / Unknown Venipuncture / Unknown 07/17/2025 6:06 PM EST 07/17/2025 6:11 PM EST us Guy Guidry MD LAB MICROBIOLOGY - GENERAL ORDER KOMAL Final Result Performing Organization Address [facility] Co de Phone Number [facility] [address] [place] [address], [place] [phone] * Lactate, with Reflex (07/17/2025 5:51 PM EST) Only the most recent of2 resultswithin the time period is included. LACTIC ACID 1.0 0.4 - 2.0 mmol/L 07/17/2025 6:37 PM EST [facility] Blood Venous blood specimen / Unknown Venipuncture / Unknown 07/17/2025 5:51 PM EST 07/17/2025 6:11 PM EST us Guy Guidry MD LAB BLOOD ORDERABLES Final Resul t Performing Organization Address [facility] Co de Phone Number [facility] [address] [place] [address], [place] [phone] * (ABNORMAL) Procalcitonin (07/17/2025 5:51 PM EST) Procalcitonin 0.06(H) <=0.05 ng/mL 07/18/2025 12:02 AM EST [facility] Blood Venous blood specimen / Unknown Venipuncture / Unknown 07/17/2025 5:51 PM EST 07/17/2025 6:11 PM EST Narrative [facility] - 07/18/2025 12:02 AM EST Procalcitonin > 2.00 ng/ml: Procalcitonin Levels above [...] if any concentrations <2.0 ng/mL are obtained. Ko Motta MD LAB BLOOD ORDERABLES Final Result Performing Organization Address [facility] Co de Phone Number [facility] [address] [place] [address], * APTT (07/17/2025 5:51 PM EST) aPTT 31.2 24.1 - 39.3 sec LAB COAGULATION METHOD 07/17/2025 6:41 PM EST [facility] Blood Venous blood specimen / Unknown Venipuncture / Unknown 07/17/2025 5:51 PM EST 07/17/2025 6:11 PM EST us Guy Guidry MD LAB BLOOD ORDERABLES Final Resul t Performing Organization Address [facility]/ZIP Co de Phone Number [facility] [address] [place] [address], * (ABNORMAL) B-Type Natriuretic Peptide (BNP) (07/17/2025 5:51 PM EST) Only the most recent of2 resultswithin the time period is included. BNP 141(H) <=100 pcg/mL 07/17/2025 6:38 PM EST [facility] Blood Venous blood specimen / Unknown Venipuncture / Unknown 07/17/2025 5:51 PM EST 07/17/2025 6:11 PM EST Narrative [facility] - 07/17/2025 6:38 PM EST Over the counter supplements containing high doses of biotin may interfere with this assay. If interference is suspected, patients shoud be retested after refraining from biotin supplements for 72 hours. Guy Guidry MD LAB BLOOD ORDERABLES Final Resul t Performing Organization Address City/[facility]/ZIP Co de Phone Number [facility] [address] [place] [address], [place] [phone] * Lipase (07/17/2025 5:51 PM EST) Lipase 38 12 - 53 unit/L 07/17/2025 6:39 PM EST [facility] Blood Venous blood specimen / Unknown Venipuncture / Unknown 07/17/2025 5:51 PM EST 07/17/2025 6:11 PM EST Guy Guidry MD LAB BLOOD ORDERABLES Final Resul t Performing Organization Address [facility] de Phone Number [facility] [address] [place] [address], [place] [phone] * [place] CRITICAL CARE 30-74 MINUTES (07/17/2025 5:35 PM EST) Narrative Guy Guidry MD - 07/17/2025 5:35 PM EST Guy Guidry MD 07/17/2025 7:44 PM Critical Care Performed by: Guy Guidry MD Authorized by: Guy Guidry MD Critical care provider statement: Critical care time (minutes): 40 Total face to face critical care time (minutes): 40 Critical care time was exclusive of: Separately billable procedures and treating other patients Critical care was necessary to treat or prevent imminent or life-threatening deterioration of the following conditions: Respiratory failure Critical care was time spent personally by me on the following activities: Development of treatment plan with patient or surrogate, discussions with consultants, evaluation of patient's response to treatment, ordering and review of laboratory studies, ordering and review of radiographic studies, re-evaluation of patient's condition, review of old charts, ordering and performing treatments and interventions and examination of patient I assumed direction of critical care for this patient from another provider in my specialty: no Care discussed with: admitting provider Comments: Acute hypoxic and hypercarbic respiratory failure requiring noninvasive positive pressure ventilation to prevent further respiratory decompensation and could lead to severe endorgan dysfunction, disability and/or even . us Guy Guidry MD IN CLINIC/BEDSIDE ORDERABLES Fin al Result * Vascular US Duplex Lower Extremity Venous Left (07/14/2025 6:38 PM EST) Anatomical Region Laterality Modality Vascular, Abdomen Ultrasound 07/14/2025 6:55 PM EST Impressions 07/14/2025 6:55 PM EST Impression: 1. Left lower extremity venous duplex ultrasound negative for DVT. 2. Santana's cyst as described above. This document has been electronically signed by: Gregory Melissa MD on 07/14/2025 18:55:32 Narrative 07/14/2025 6:55 PM EST INDICATION: pain in extremities Left lower extremity venous duplex ultrasound. Comparison: None Technique: Real time sonographic imaging, including color-flow imaging and spectral analysis, was performed by the muck hauler. Multiple public relations representative static images were saved for review. Findings: The deep venous system is fully compressible from common femoral through the proximal leg veins. There is spontaneous and phasic flow, and augmentation. Color Doppler and spectral tracings are unremarkable. A popliteal fossa cyst measuring 5.6 x 2.8 x 1.3 cm is present. Procedure Note Gregory Melissa MD - 07/14/2025 INDICATION: pain in extremities Left lower extremity venous duplex ultrasound. Comparison: None Technique: Real time sonographic imaging, including color-flow imagingand spectral analysis, was performed by the muck hauler. Multiple public relations representative static images were saved for review. Findings: The deep venous system is fully compressible from common femoral through the proximal leg veins. There is spontaneous and phasic flow, and augmentation. Color Doppler and spectral tracings are unremarkable. A popliteal fossa cyst measuring 5.6 x 2.8 x 1.3 cm is present. IMPRESSION: Impression: 1. Left lower extremity venous duplex ultrasound negative for DVT. 2. Santana's cyst as described above. This document has been electronically signed by: Gregory Melissa MD on 07/14/2025 18:55:32 us Franchesca Hopper MD CV VASCULAR PROCEDURES Final Res ult * (ABNORMAL) CBC (07/14/2025 4:13 PM EST) WBC 4.2(L) 4.8 - 10.8 K/mcL LAB HEMETOLOGY METHOD 07/14/2025 4:51 PM [facility] RBC 3.40(L) 3.80 - 4.80 M/mcL LAB HEMETOLOGY METHOD 07/14/2025 4:51 PM [facility] Hemoglobin 11.0(L) 11.5 - 16.0 g/dL LAB HEMETOLOGY METHOD 07/14/2025 4:51 PM [facility] Hematocrit 34.8(L) 35.0 - 47.0 % LAB HEMETOLOGY METHOD 07/14/2025 4:51 PM [facility] MCV 102.7(H) 79.0 - 98.0 FL LAB HEMETOLOGY METHOD 07/14/2025 4:51 PM [facility] MCH 32.4(H) 27.0 - 32.0 pcg LAB HEMETOLOGY METHOD 07/14/2025 4:51 PM [facility] MCHC 31.6(L) 32.0 - 37.0 g/dL LAB HEMETOLOGY METHOD 07/14/2025 4:51 PM [facility] RDW 11.6 11.0 - 15.0 % LAB HEMETOLOGY METHOD 07/14/2025 4:51 PM [facility] Platelets 107(L) 130 - 400 K/mcL LAB HEMETOLOGY METHOD 07/14/2025 4:51 PM [facility] MPV 10.8 7.0 - 11.0 FL LAB HEMETOLOGY METHOD 07/14/2025 4:51 PM EST [facility] NRBC 0.0 <1.0 % LAB HEMETOLOGY METHOD 07/14/2025 4:51 PM EST [facility] NRBC Absolute 0.00 <0.10 K/mcL LAB HEMETOLOGY METHOD 07/14/2025 4:51 PM EST [facility] Blood Venous blood specimen / Unknown Venipuncture / Unknown 07/14/2025 4:13 PM EST 07/14/2025 4:44 PM EST us Franchesca Hopper MD LAB BLOOD ORDERABLES Final Resul t Performing Organization Address City/[facility]/ZIP Co de Phone Number [facility] [address] [place] [address], [place] [phone] * (ABNORMAL) Creatine kinase (07/14/2025 4:13 PM EST) Total CK 25(L) 34 - 145 unit/L 07/14/2025 5:31 PM EST [facility] Blood Venous blood specimen / Unknown Venipuncture / Unknown 07/14/2025 4:13 PM EST 07/14/2025 4:44 PM EST us Franchesca Hopper MD LAB BLOOD ORDERABLES Final Resul t [facility] [address] [place] [address], [place] [phone] * (ABNORMAL) Vitamin B12 and folate (06/25/2025 4:13 AM EST) Vitamin B-12 210(L) 250 - 900 pcg/mL LAB CHEMISTRY METHOD 06/25/2025 5:10 AM EST [facility] Folate 9.2 2.8 - 17.0 ng/ml LAB CHEMISTRY METHOD 06/25/2025 5:10 AM EST [facility] Blood Venous blood specimen / Unknown Venipuncture / Unknown 06/25/2025 4:13 AM EST 06/25/2025 4:17 AM EST us Sydnee DOWNING LAB BLOOD ORDERABLES Final Resu lt [facility] [address] [place] [address], * (ABNORMAL) Manual differential (06/25/2025 3:13 AM EST) Neutrophils % 76.0 % LAB HEMETOLOGY METHOD 06/25/2025 4:54 AM [facility] Lymphocytes % 12.0 % LAB HEMETOLOGY METHOD 06/25/2025 4:54 AM [facility] Monocytes % 3.0 % LAB HEMETOLOGY METHOD 06/25/2025 4:54 AM [facility] Eosinophils % 8.0 % LAB HEMETOLOGY METHOD 06/25/2025 4:54 AM [facility] Basophils % 1.0 % LAB HEMETOLOGY METHOD 06/25/2025 4:54 AM [facility] Neutrophils Absolute Manual 3.80 1.50 - 7.00 K/mcL LAB HEMETOLOGY METHOD 06/25/2025 4:54 AM [facility] Lymphocytes Absolute 0.60(L) 1.00 - 5.00 K/mcL LAB HEMETOLOGY METHOD 06/25/2025 4:54 AM [facility] Monocytes Absolute Manual 0.15(L) 0.20 - 1.00 K/mcL LAB HEMETOLOGY METHOD 06/25/2025 4:54 AM [facility] Eosinophils Absolute Manual 0.40 0.00 - 0.50 K/mcL LAB HEMETOLOGY METHOD 06/25/2025 4:54 AM [facility] Basophils Absolute Manual 0.05 0.00 - 0.20 K/mcL LAB HEMETOLOGY METHOD 06/25/2025 4:54 AM EST [facility] Rbc Morphology Consistent with indices Consistent with indices, Normal for [place] LAB HEMETOLOGY METHOD 06/25/2025 4:54 AM [facility] Platelet Morphology - WAM Normal Normal LAB HEMETOLOGY METHOD 06/25/2025 4:54 AM [facility] Blood Venous blood specimen / Unknown Venipuncture / Unknown 06/25/2025 3:13 AM EST 06/25/2025 4:17 AM EST Sydnee DOWNING LAB BLOOD ORDERABLES Final Resu lt [facility] [address] [place] [address], * (ABNORMAL) Urinalysis with reflex microscopic (06/24/2025 2:25 PM EST) Specific [place] Urine 1.010 1.003 - 1.030 LAB URINALYSIS - AUTOMATED METHOD 06/24/2025 3:10 PM [facility] pH, Urine 7.5 5.0 - 8.0 pH LAB URINALYSIS - AUTOMATED METHOD 06/24/2025 3:10 PM [facility] Leukocytes, Urine Trace(A) Negative LAB URINALYSIS - AUTOMATED METHOD 06/24/2025 3:10 PM [facility] Nitrite, Urine Negative Negative LAB URINALYSIS - AUTOMATED METHOD 06/24/2025 3:10 PM [facility] Protein, Urine Trace <=Trace mg/dL LAB URINALYSIS - AUTOMATED METHOD 06/24/2025 3:10 PM [facility] Glucose, Urine Negative Negative mg/dL LAB URINALYSIS - AUTOMATED METHOD 06/24/2025 3:10 PM [facility] Ketones, Urine Negative Negative mg/dL LAB URINALYSIS - AUTOMATED METHOD 06/24/2025 3:10 PM [facility] Urobilinogen, Urine 0.2 0.2 - 1.0 mg/dL LAB URINALYSIS - AUTOMATED METHOD 06/24/2025 3:10 PM [facility] Bilirubin, Urine Negative Negative LAB URINALYSIS - AUTOMATED METHOD 06/24/2025 3:10 PM [facility] Blood, Urine Negative Negative LAB URINALYSIS - AUTOMATED METHOD 06/24/2025 3:10 PM [facility] RBC, Urine 2.3 0 - 4 /HPF LAB URINALYSIS - AUTOMATED METHOD 06/24/2025 3:10 PM [facility] WBC, Urine 2.1 0 - 4 /HPF LAB URINALYSIS - AUTOMATED METHOD 06/24/2025 3:10 PM [facility] Squamous Epithelial, Urine 33 0 - 60 /LPF LAB URINALYSIS - AUTOMATED METHOD 06/24/2025 3:10 PM [facility] Bacteria, Urine Negative Negative /HPF LAB URINALYSIS - AUTOMATED METHOD 06/24/2025 3:10 PM [facility] Hyaline Casts, Urine 1.2 0 - 3 /LPF LAB URINALYSIS - AUTOMATED METHOD 06/24/2025 3:10 PM [facility] Urine Urine specimen obtained by clean catch procedure / Unknown Non-blood Collection / Unknown 06/24/2025 2:25 PM EST 06/24/2025 3:00 PM EST us Fer Nguyen MD LAB URINE ORDERABLES Final Resu lt [facility] [address] [place] [address], * Thyroxine free (05/27/2025 1:11 PM EDT) Free T4 1.25 0.70 - 1.80 ng/dL LAB CHEMISTRY METHOD 05/27/2025 3:50 PM EDT [facility] Blood Venous blood specimen / Unknown Venipuncture / Unknown 05/27/2025 1:11 PM EDT 05/27/2025 1:34 PM EDT Mihaela Barbour MD LAB BLOOD ORDERABLES Final R esult [facility] [address] [place] [address], [place] [phone] * PET CT Skull to Mid Thigh [...] Signed Date: 05/27/2025 10:34 ET Workstation ID: [id number] Transcribed By: Self Edit Transcribed Date: 05/27/2025 [...] the right SUV max 2.1 (previously 2.7 onAugust 2024). Nonspecific bowel activity. Diverticulosis. MUSCULOSKELETAL: New [...] Signed Date: 05/27/2025 10:34 ET Workstation ID: [id number] Transcribed By: Self Edit Transcribed Date: 05/27/2025 09:29 ET Alba Zapien MD [facility] [place] PROCEDURES Final Result * Lipid panel (06/08/2023) [...] (World Health Organization Fracture Risk Assessment) [facility] Department of Internal Medicine recommends using [...] alternative screening schedule based on sadiq Franco., [facility] September 08, 2011 for patients with [...] (World Health Organization Fracture Risk Assessment) [facility] Department of Internal Medicine recommendsusing National [...] alternative screening schedule based on sadiq Franco., [facility] for patients with osteopenia (based on hip BMD T-score) is as follows: * advanced osteopenia (T scores -2.00 to -2.49), BMD testing every year * moderate osteopenia (T scores -1.50 to -1.99), BMD testing every 5years mild osteopenia or normal BMD (T scores -1.50 and higher), BMD testingevery 15 years Jess DOWNING IMDeng DXA PROCEDURES Final Resu lt * Hepatitis C Screening (05/13/2020) [facility] Hepatitis C Screening Abstracted Historical Provider MD HEALTH MAINTENANCE Final Result from Last 3 Months or Most Recently Relevant to Health Maintenance Insurance [employer] MEDICARE [place] Advance Directives Documents on File Type Date Recorded Patient Supervisor Intelligence Analyst Expl anation Advance Directives and Living Will 11/26/2024 5:41 PM Deangelo Draper Health Care Proxy * Full Code - Confirmed (Latest Code Status on File) Date Activated Date Inactivated Comments 07/17/2025 11:52 PM 07/19/2025 2:21 PM This code status was ascertained in the following way: Code status discussion: discussion with patient To update the patient's code status, place a code status order. Do not modify or discontinue any currently active code status orders. * Full Code - Default Date Activated Date Inactivated Comments 07/17/2025 11:50 PM 07/17/2025 11:52 PM This is order is used when code status has not been discussed with the patient, or code status is otherwise unknown/unconfirmed To update the patient's code status, place a code status order. Do not modify or discontinue any currently active code status orders. * Full Code - Confirmed Date Activated Date Inactivated Comments 06/24/2025 9:21 [...] Draper Spouse Health Care Agent Care Teams Can Line Operator Relationship Specialty Start Date End Date Will Monroe MD [address] [place] [address] [phone] PCP - General Internal Medicine 07/08/24
--- OUTSIDE RECORDS SUMMARY | 2025-08-12 13:18 | XMS_ITS | Encounter Summary ---
Author Organization [employer] Address [address] [place] [address] Care Team Providers Care Dog Trainer Name Role Phone Will Monroe MD Primary Care Provider [phone] Reason for Visit * Reason Onset Date Comments faxed order 08/04/2025 [employer] order Encounter Details Date Type Department Care Team (Late st Contact Info) Description 08/04/2025 Telephone Adult Medicine [address] [phone] Will Monroe MD [address] [place] [address] Social History Tobacco Use Types Packs/Day Years [...] for your loved ones. For example, child life therapist or elderly care for an older adult? [...] encounter Progress Notes * Marian Kim - 08/04/2025 11:27 AM EST [employer] order received please sign and fax to [phone] documented in this encounter Plan of Treatment Upcoming Encounters Date Type Department Care Team (Late st Contact Info) Description 08/19/2025 9:30 AM EST Ancillary Procedure [facility] - [facility] [address] [place] [address] 09/02/2025 11:00 AM EST Appointment [facility] Infusion Center [address] [facility] 2nd [place] [address] 09/09/2025 11:15 AM EST Office Visit [facility] Hematology Oncology [address] [place] [address] Mihaela Barbour MD [address] [place] [address] 10/01/2025 10:10 AM EST Office Visit Pulmonology [facility] [address] [facility] [address] [place] [address] Jelena Hoff, DIVIDING MACHINE OPERATOR HELPER [address] [place] [address] 10/14/2025 1:30 PM EST Office Visit Adult Medicine [facility] [address] [place] [address] Will Monroe MD [address] [place] [phone] 03/03/2026 11:00 AM EDT Appointment [facility] Ultrasound [address] [place] [address] 04/01/2026 11:30 AM EDT Office Visit Vascular Surgery - [place] [address] [facility] [address] [place] [phone] Krupa Garcia MD [address] [place] [phone] documented as of this encounter Visit Diagnoses Not on filedocumented in this encounter Additional Health Concerns Assessment Noted Time PHQ-9 Depression Total Score: 0 07/25/20 25 10:40 AM EST documented as of this encounter Care Teams Dog Trainer Relationship Specialty Start Date End Date Will Monroe MD [address] [place] [phone] PCP - General Internal Medicine 07/08/24 documented as of this encounter
--- OUTSIDE RECORDS SUMMARY | 2025-08-12 13:18 | XMS_ITS | Clinical Summary ---
Author Organization [facility] Address [address] [place] [address] Care Team Providers Care Desktop Architect Name Role Phone Unknown Primary Care Provider [phone] Allergies Active Allergy Reactions Criticality Noted Date [...] series) 2023 Influenza Vaccine 03/21/2025 COVID-19 Vaccine (1 - 2024-2 6 season) 2025 Hepatitis B Vaccines Aged Out No long er eligible based on patient's age to complete this topic Insurance [facility] MEDICARE Care Teams Desktop Architect Relationship Specialty Start Date End Date Unknown Unknow Provider Address PCP - General 02/28/23
--- OUTSIDE RECORDS SUMMARY | 2025-08-12 13:18 | XMS_ITS | Encounter Summary ---
Author Organization [facility] Address [address] [place] [address] Care Team Providers Care Civil Litigation Attorney Name Role Phone Will Monroe MD Primary Care Provider [phone] Reason for Visit * Reason Comments home health POC Encounter Details Date Type Department Care Team (Late st Contact Info) Description 02/14/2025 Billing Patient Not Present Adult Medicine [address] [phone] Will Monroe MD [address] [place] [address] Social History Tobacco Use Types Packs/Day Years [...] Description 08/19/2025 9:30 AM EST Ancillary Procedure [facility] - [facility] [address] [facility] [address] [place] [address] 09/02/2025 11:00 AM EST Appointment [facility] Infusion Center [address] [facility] 2nd [place] [address] 09/09/2025 11:15 AM EST Office Visit [facility] Hematology Oncology [address] [place] [phone] Mihaela Barbour MD [address] [place] [address] 10/01/2025 10:10 AM EST Office Visit Pulmonology - [place] [address] [facility] [address] [place] [phone] Jelena Hoff, CARY [address] [place] [phone] 10/14/2025 1:30 PM EST Office Visit Adult Medicine [facility] [address] [place], [place] [phone] Will Monroe MD [address] [place], [place] 03/03/2026 11:00 AM EDT Appointment [facility] Ultrasound [address] [place] [address] 04/01/2026 11:30 AM EDT Office Visit Vascular Surgery - [place] [address] [place] [phone] Krupa Garcia MD [address] [place] [phone] documented as of this encounter Visit Diagnoses Not on filedocumented in this encounter Additional Health Concerns Infection Onset Date Last Indicated Resolved Time Respiratory Rule-Out 06/24/2025 06/24/2025 025 3:01 PM EST COVID-19 Rule-Out 06/24/2025 06/24/2025 06/24/2025 3:01 PM EST Respiratory Rule-Out 07/17/2025 07/17/2025 025 7:24 PM EST COVID-19 Rule-Out 07/17/2025 07/17/2025 07/17/2025 7:24 PM EST documented as of this encounter Care Teams Civil Litigation Attorney Relationship Specialty Start Date End Date Will Monroe MD [address] [place] [phone] PCP - General Internal Medicine 07/08/24 documented as of this encounter
--- OUTSIDE RECORDS SUMMARY | 2025-08-12 13:18 | XMS_ITS ---
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 [place] [address] Email: [email or web address] (current prescriber) Aphasia as late effect of [...] Dilantin Thrombocytopenia 07/24/2017 Vitamin D deficiency 07/24/2017 Current Treatment [...] Medications Current Day (Day 1 , Cycle 4 - Planned for 08/26/2025) Next Day (Day 1, Cycle 5 - Planned for 09/23/2025) durvalumab (IMFINZI)durvalumab (IMFINZI) chemo IVPB 250 mL [...] Goal Episode Provider 02/04/2025 03/18/2025 Lung Curative Alba Zapien MD * Linked Problems Treatment Courses* Course 1 [...]
== END 2025-08-12 12:07 | disposition home or self-care (01) ==
LOC: HO.HOP 12:06
PROVIDERS: PCP Internal Medicine; Visit Provider Clinical Nurse Specialist Psychiatric/Mental Health
DX: F33.1 Major depressive disorder, recurrent, moderate (principal); R45.89 Other symptoms and signs involving emotional state; F43.10 Post-traumatic stress disorder, unspecified
CPT/HCPCS: 99213